=== PATIENT | female | born 1950 | race Caucasian/White ===

== ENCOUNTER 2016-08-17 09:29 | Inpatient (IN) | payer BC, OTHER ==
[~2016-08-17] VITALS: Ht 160 cm; Wt 99.0 kg
[~2016-08-17 09:29] MED LIST: ADVIN50/60 INH; ALBU0.08 INH; ALBUAER19 INH; CETI10TA10 PO; LANS30CA12 PO; LEVO75TA PO; MULT-190 PO; MULTTAB58 PO; OMEG10007 PO; PRED10TA PO; RANI300T2 PO; RIVA1TAB4 PO; SIMV20TA2 PO; TRIA1SPR2 NAE; TRIATAB3 PO; VALS40TA2 PO; VERA1TAB52 PO
[2016-08-17] MEDS ORDERED: IVIG IV (10:02)
[2016-08-17] MEDS ORDERED: VNTHFA/IN INH (10:11)
[2016-08-17] MEDS ORDERED: TRIA1SPR4 NAE (10:11)
[2016-08-17] MEDS ORDERED: ALBINS/ INH (10:11)
[2016-08-17] MEDS ORDERED: ALBUT/IPRATROP 3MG/0.5MG NEB 3 ML VIAL INH ONE (10:30)
--- NOTE | 2016-08-17 10:37 | EMERGENCY ROOM VISIT NOTE ---
History Report prepared by Binta: Christoph Lopes Under the Supervision of: Dr. Timo Prajapati M.D. First contact with patient: 09:59 Chief Complaint: FLU LIKE SX Stated Complaint: FLU LIKE SX History of Present Illness The patient is a 65 year old female who presents to the Emergency Room with complaints of worsening flu symptoms starting yesterday. The patient states that yesterday she was very tired, and she slept all day, though it did not seem to help. The patient additionally complains of a cough that brings up clear mucous, vomiting, abdominal pain, and a lot of gas. The patient states that she cannot even drink water without throwing up. The patient states that she has chronic asthma and sinusitis for the past five years. She states that she was here in October, and she was diagnosed with pneumonia, 2 PEs, and immunodeficiency. The patient denies any abdominal surgeries in the past. Source of History: patient Onset: yesterday Position: other (global) Quality: other (flu symptoms) Timing: worsening Associated Symptoms: + abdominal pain, + cough, + vomiting Review of Systems See HPI for pertinent positives & negatives. A total of 10 systems reviewed and were otherwise negative. Past Medical & Surgical Medical Problems: (1) Asthma (2) Breast Biopsy 2006 (3) Chronic asthmatic bronchitis (4) Gastroesophageal reflux disease (5) GERD (6) Hypercholesterolemia (7) Hypertension (8) Hypothyroidism (9) Hysterectomy 1989 (10) Knee Replacement Surgery (11) Pneumonia (12) Rhinitis (13) Right Rotator Cuff Repair 2004 (14) Seasonal Allergies (15) Vaginal Repair 1999 Family History Hypertension Lung disease Social History Smoking Status: Former Smoker Alcohol Use: occasionally Drug Use: none Marital Status: Housing Status: lives with family Occupation Status: retired Current/Historical Medications Scheduled Cetirizine Hcl (Zyrtec), 10 MG PO DAILY Fish Oil ([place]-3), 1 CAPSULE PO DAILY Fluticasone Prop/Salmeterol (Advair Diskus 500/50 60 Dose), 1 PUFF INH BID Lansoprazole (Prevacid), 30 MG PO DAILY Levothyroxine Sodium (Synthroid), 75 MCG PO DAILY Multiple Vitamin (Multivitamin), 1 TAB PO DAILY Ocuvite Preservision (Ocuvite Preservision), 1 TABLET PO DAILY Ranitidine (Zantac), 300 MG PO HS Simvastatin (Zocor), 20 MG PO QPM Triamcinolone Acetonide (Nasal (Nasacort Allergy 24Hr), 2 SPRAYS YARIEL DAILY Triamterene/Hctz (Triamterene/Hctz 37.5-25MG), 1 TAB PO DAILY Valsartan (Diovan), 40 MG PO DAILY Verapamil Hcl (Verapamil Hcl Er), 120 MG PO DAILY [Ivig], 1 DOSE IV Q4WK Scheduled PRN Albuterol Hfa (Ventolin Hfa), 2 PUFFS INH Q4H PRN for SOB/Wheezing Albuterol Sulf (Proventil 0.083% 2.5MG/3ML), 2.5 MG INH QID PRN for SOB/Wheezing Allergies Coded Allergies: Erythromycin (Unverified Allergy, Severe, HIVES, 08/17/16) Levofloxacin (Verified Allergy, Severe, Anaphylaxis, 08/17/16) Quinolones (Verified Allergy, Intermediate, RASH, 08/17/16) Aspirin (Verified Allergy, Unknown, TAKES VOLTAREN AT HOME, 08/17/16) Physical Exam Vital Signs Date Time Temp Pulse Resp B/P Pulse Ox O2 Delivery O2 Flow Rate FiO2 08/17/16 14:54 105 14 92 08/17/16 14:49 100 16 92 08/17/16 14:44 112 19 94 08/17/16 14:39 105 16 94 08/17/16 14:34 103 25 93 08/17/16 14:29 108 23 94 08/17/16 14:24 106 23 93 08/17/16 14:19 115 20 92 08/17/16 14:14 106 24 94 08/17/16 14:09 113 20 93 08/17/16 14:04 109 16 93 08/17/16 13:59 101 15 92 08/17/16 13:58 142/87 08/17/16 13:54 114 20 94 08/17/16 13:49 110 16 94 08/17/16 13:44 112 23 96 08/17/16 13:39 106 21 91 08/17/16 13:37 105 08/17/16 13:34 100 18 94 08/17/16 13:29 109 20 93 08/17/16 13:14 112 18 92 08/17/16 13:09 113 16 90 2/15/17 13:04 115 22 90 215/17 12:59 111 16 92 215/17 12:58 133/71 215/17 12:54 111 18 92 15/17 12:49 114 17 93 215/17 12:29 107 10 99 15/17 12:24 112 9 98 15/17 12:19 106 12 98 08/17/ 12:14 101 11 98 08/17/16 12:09 101 11 98 08/17/ 12:04 98 12 99 15/17 11:59 99 16 98 15/17 11:58 123/75 15/17 11:54 98 12 98 15/17 11:49 99 15 98 15/17 11:48 36.6 105 12 135/74 99 Nebulizer 08/17/16 11:46 135/74 15/17 11:45 145/79 15/17 11:44 100 19 99 08/17/17 11:44 97 12 140/79 99 Nebulizer 101 145/79 105 135/74 08/17/17 11:43 140/79 15/17 11:29 87 14 99 15/17 11:24 91 12 99 15/17 11:19 88 16 99 15/17 11:14 83 14 100 15/17 11:10 88 20 96 Room Air 08/17/ 11:09 92 16 99 15/17 11:04 87 18 15/17 10:59 95 15 15/17 10:54 94 21 215/17 10:49 93 16 2/15/17 10:44 92 17 2/15/17 10:39 85 16 2/15/17 10:34 86 17 2/15/17 10:29 86 23 2/15/17 10:24 93 22 2/15/17 10:14 92 19 94 215/17 10:09 86 15 95 215/17 10:04 87 17 94 215/17 09:59 88 13 96 215/17 09:54 91 14 94 15/17 09:49 87 13 94 15/17 09:44 85 16 95 15/17 09:43 36.6 86 18 151/78 96 Room Air 08/17/16 09:42 85 08/17/16 09:38 151/78 Physical Exam GENERAL: Patient is a healthy-appearing well-nourished HEAD: Normocephalic atraumatic EYES: Ocular movements intact pupils equal and react to light OROPHARYNX mucous membranes are moist no exudates present no erythema or edema present NECK: Supple no nuchal rigidity CHEST: Good equal expansion LUNGS: Clear and equal to auscultation CARDIAC: Normal S1 and S2 ABDOMEN: Soft nontender no guarding BACK: No CVA tenderness EXTREMITIES: No pain upon palpation normal muscle strength in all groups no clubbing cyanosis or edema NEURO: Patient is following commands is answering questions appropriately. Alert and oriented x3 Cranial Nerves 2-12 grossly intact Medical Decision & Procedures ER Provider Diagnostic Interpretation: X-ray results as stated below per interpretation by me and the radiologist: CHEST ONE VIEW PORTABLE CLINICAL HISTORY: Shortness of breath. COMPARISON STUDY: Chest radiograph and chest CT October 12, 2015. FINDINGS: Elevation of the right hemidiaphragm is unchanged. Cardiac size is normal. Mediastinal contours are normal. There is no evidence of pulmonary edema. Mild bibasilar opacities favor atelectasis. IMPRESSION: 1. Mild bibasilar opacities. Atelectasis is favored. An infectious process could appear similar but is considered less likely. 2. Stable elevation of the right hemidiaphragm. Electronically signed by: Trung Milligan M.D. 08/17/2016 10:55 AM Dictated Date/Time: 08/17/2016 10:53 AM Laboratory Results Test 08/17/16 10:30 08/17/16 10:34 08/17/16 11:00 08/17/16 11:49 Influenza Type A (RT-PCR) Neg for Influ A (NEG) Influenza Type A Antigen Neg for Influ A (NEG) Influenza Type B Antigen Neg for Influ B (NEG) Influenza Type B (RT-PCR) Neg for Influ B (NEG) Urine Color DK YELLOW Urine Appearance CLOUDY (CLEAR) Urine pH 6.5 (4.5-7.5) Urine Specific [place] 1.018 (1.000-1.030) Urine Protein 1+ (NEG) Urine Glucose (UA) NEG (NEG) Urine Ketones NEG (NEG) Urine Occult Blood NEG (NEG) Urine Nitrite NEG (NEG) Urine Bilirubin NEG (NEG) Urine Urobilinogen NEG (NEG) Urine Leukocyte Esterase TRACE (NEG) Urine WBC (Auto) 1-5 /hpf (0-5) Urine RBC (Auto) 0-4 /hpf (0-4) Urine Hyaline Casts (Auto) 1-5 /lpf (0-5) Urine Epithelial Cells (Auto) 20-30 /lpf (0-5) Urine Bacteria (Auto) NEG (NEG) Immature Granulocyte % (Auto) 0.3 % White Blood Count 17.84 K/uL (4.8-10.8) Red Blood Count 4.57 M/uL (4.2-5.4) Hemoglobin 12.6 g/dL (12.0-16.0) Hematocrit 38.0 % (37-47) Mean Corpuscular Volume 83.2 fL (80-100) Mean Corpuscular Hemoglobin 27.6 pg (25-34) Mean Corpuscular Hemoglobin Concent 33.2 g/dl (32-36) Platelet Count 275 K/uL (130-400) Mean Platelet Volume 10.1 fL (7.4-10.4) Neutrophils (%) (Auto) 83.2 % Lymphocytes (%) (Auto) 9.1 % Monocytes (%) (Auto) 6.4 % Eosinophils (%) (Auto) 0.9 % Basophils (%) (Auto) 0.1 % Neutrophils # (Auto) 14.82 K/uL (1.4-6.5) Lymphocytes # (Auto) 1.63 K/uL (1.2-3.4) Monocytes # (Auto) 1.15 K/uL (0.11-0.59) Eosinophils # (Auto) 0.16 K/uL (0-0.5) Basophils # (Auto) 0.02 K/uL (0-0.2) Immature Granulocyte # (Auto) 0.06 K/uL (0.00-0.02) Prothrombin Time 10.0 SECONDS (9.0-12.0) Prothromb Time International Ratio 0.9 (0.9-1.1) Activated Partial Thromboplast Time 21.7 SECONDS (21.0-31.0) Partial Thromboplastin Ratio 0.8 Total Bilirubin 0.4 mg/dl (0.2-1) Direct Bilirubin < 0.1 mg/dl (0-0.2) Aspartate Amino Transf (AST/SGOT) 13 U/L (15-37) Alanine Aminotransferase (ALT/SGPT) 24 U/L (12-78) Alkaline Phosphatase 89 U/L (45-117) Total Protein 7.3 gm/dl (6.4-8.2) Albumin 3.1 gm/dl (3.4-5.0) Thyroid Stimulating Hormone (TSH) 0.396 uIu/ml (0.300-4.500) Bedside Glucose 94 mg/dl (70-90) Labs reviewed by ED physician. Medications Administered Medications (Trade) Dose Ordered Sig/Ross Route Start Time Stop Time Status Last Admin Dose Admin Albuterol/ Ipratropium (Duoneb) 12 ml ONE ONCE INH 08/17/16 10:30 08/17/16 10:31 DC 08/17/16 11:10 12 ML Piperacillin Sod/ Tazobactam Sod 4.5 gm 4.5 gm NOW STAT IV 08/17/16 12:31 08/17/16 12:33 DC 08/17/16 13:14 4.5 GM Sodium Chloride (Nss 1000ml) 1,000 ml @ 999 mls/hr Q1H1M STAT IV 08/17/16 12:47 08/17/16 13:47 DC 08/17/16 13:14 999 MLS/HR Doxycycline Hyclate (Vibramycin Cap) 100 mg ONE STAT PO 08/17/16 12:47 08/17/16 12:48 DC 08/17/16 13:13 100 MG Methylprednisolone Sodium Succinate (Solu-Medrol IV) 60 mg NOW STAT IV 08/17/16 12:50 08/17/16 12:51 DC 08/17/16 13:14 60 MG Vancomycin HCl (Vancomycin 1gm/ 270ml Nss) 1 gm NOW STAT IV 08/17/16 13:58 08/17/16 13:59 DC 08/17/16 14:45 1 GM ECG Indication: other (Flu Like Symptoms) Rate (beats per minute): 88 Rhythm: normal sinus Findings: no acute ischemic change, no ectopy ED Course 1020: Past medical records reviewed. The patient was evaluated in room C5. A complete history and physical examination was performed. 1030: Duoneb 12ml INH 1231: Zosyn 4.5gm IV 1247: Vibramycin Cap 100mg PO, Sodium Chloride 1000 ml @ 999 mls/hr IV 1250: Solu-Medrol 60mg IV 1350: I reevaluated the patient, and she was resting. I discussed the findings and treatment plan with her. 1357: I discussed the patient's case with Dr. Calvin. He is going to evaluate the patient for further treatment. 1358: Vancomycin 1gm/ 270ml NSS 1mg IV Medical Decision Differential diagnosis: Etiologies such as infections, reactive airway disease, pneumonia, pneumothorax , COPD, CHF, cardiac ischemia, pulmonary embolism, musculoskeletal, gastrointestinal, as well as others were entertained. This is a 65-year-old female who presents emergency department complaining of shortness of breath. The patient has a history of IgG deficiency. Based on her allergies she was started on vancomycin as well as Zosyn. I did give her an hour-long breathing treatment in the emergency department. She does have an elevation in her white blood count. I did discuss the case with the hospitalist service who agreed to admit the patient. Patient was in agreement with the treatment plan area Consults Time Called: [phone] Consulting Physician: Dr. Calvin Returned Call: [phone] I discussed the patient's case with Dr. Calvin. He is going to evaluate the patient for further treatment. Impression Primary Impression: Pneumonia Scribe Attestation The scribe's documentation has been prepared under my direction and personally reviewed by me in its entirety. I confirm that the note above accurately reflects all work, treatment, procedures, and medical decision making performed by me. Departure Information Dispostion Being Evaluated By Hospitalist Referrals Joselito Harrington M.D. (PCP)
[2016-08-17 10:45] LABS: MANUAL MICROSCOPIC REQUIRED? NO; REVIEW REQ? NO; URINE APPEARANCE CLOUDY (CLEAR); URINE BILIRUBIN NEG (NEG); URINE COLOR DK YELLOW; URINE EPITHELIAL CELL AUTO 20-30 /lpf (0-5); URINE NITRITE NEG (NEG); URINE PH 6.5 (4.5-7.5); URINE SPECIFIC GRAVITY 1.018 (1.000-1.030); UROBILINOGEN NEG (NEG)
--- NOTE | 2016-08-17 10:56 | DIAGNOSTIC IMAGING REPORT ---
CHEST ONE VIEW PORTABLE CLINICAL HISTORY: Shortness of breath. COMPARISON STUDY: Chest radiograph and chest CT October 12, 2015. FINDINGS: Elevation of the right hemidiaphragm is unchanged. Cardiac size is normal. Mediastinal contours are normal. There is no evidence of pulmonary edema. Mild bibasilar opacities favor atelectasis. IMPRESSION: 1. Mild bibasilar opacities. Atelectasis is favored. An infectious process could appear similar but is considered less likely. 2. Stable elevation of the right hemidiaphragm. Electronically signed by: Trung Milligan M.D. 08/17/2016 10:55 AM Dictated Date/Time: 08/17/2016 10:53 AM
[2016-08-17 11:10] VITALS: PULSE 88; O2SAT 96
[2016-08-17 11:16] LABS: BASO % 0.1 %; BASO ABS # 0.02 K/uL (0-0.2); COMPLETE YES; EOS % 0.9 %; IG% 0.3 %; LYMPH % 9.1 %; LYMPH ABS # 1.63 K/uL (1.2-3.4); MEAN CELL VOLUME 83.2 fL (80-100); MEAN CORPUSCULAR HEMOGLOBIN 27.6 pg (25-34); MEAN CORPUSCULAR HGB CONC 33.2 g/dl (32-36); MEAN PLATELET VOLUME 10.1 fL (7.4-10.4); MONO % 6.4 %; NEUT % 83.2 %; PLATELET COUNT 275 K/uL (130-400); RED BLOOD COUNT 4.57 M/uL (4.2-5.4); WHITE BLOOD COUNT 17.84 K/uL (4.8-10.8)
[2016-08-17 11:35] LABS: ALT/SGPT 24 U/L (12-78); AST/SGOT 13 U/L (15-37); BLOOD UREA NITROGEN 14 mg/dl (7-18); BUN/CREATININE RATIO 12.6 (10-20); CALCIUM 10.1 mg/dl (8.5-10.1); CARBON DIOXIDE 26 mmol/L (21-32); CHLORIDE 105 mmol/L (98-107); GLUCOSE 107 mg/dl (70-99); POTASSIUM 3.2 mmol/L (3.5-5.1); SODIUM 141 mmol/L (136-145)
[2016-08-17 11:45] LABS: ALKALINE PHOSPHATASE 89 U/L (45-117); THYROID STIMULATING HORMONE 0.396 uIu/ml (0.300-4.500)
[2016-08-17] MEDS ORDERED: PIPERACILLIN/TAZOBACTAM 4.5 GM/100ML D5W IV STA (12:31)
[2016-08-17 12:41] LABS: INFLUENZA A PCR Neg for Influ A (NEG); INFLUENZA B PCR Neg for Influ B (NEG)
[2016-08-17] MEDS ORDERED: SODIUM CHLORIDE 0.9% 1000ML 1,000 ML IV STA (12:47)
[2016-08-17] MEDS ORDERED: DOXYCYCLINE HYCLATE 100 MG CAP PO STA (12:47)
[2016-08-17] MEDS ORDERED: METHYLPREDNISOLONE 125 MG VIAL IV STA (12:50)
[2016-08-17] MEDS ORDERED: VANCOMYCIN 1GM/270ML NSS IV STA (13:58)
[2016-08-17] MEDS ORDERED: MAGNESIUM HYDROXIDE SUSP 30 ML UDC PO PRN (15:00)
[2016-08-17] MEDS ORDERED: POLYETHYLENE (MIRALAX) 17 GM PACK PO PRN (15:00)
[2016-08-17] MEDS ORDERED: ACETAMINOPHEN 325 MG TAB PO PRN (15:00)
[2016-08-17] MEDS ORDERED: ONDANSETRON INJ 2 MG/ML 2 ML VIAL IV PRN (15:00)
[2016-08-17] MEDS ORDERED: OPTIRAY 320 IV PRN (15:15)
[2016-08-17] MEDS ORDERED: BENZONATATE 100MG CAP PO PRN (15:15)
--- NOTE | 2016-08-17 15:23 | History and Physical ---
History & Physical Date & Time of Service: Aug 17, 2016 at 15:15 Chief Complaint: Flu Like Sx Primary Care Physician: Joselito Harrington M.D. History of Present Illness Source: patient Ms. Cruz is a 65 y/o female with PMHx of Asthma, Pulmonary Embolism originating for Lower Extremity DVTs (October 2015), IgG and IgM Immunodeficiency , HTN, Hypothyroidism, and GERD who presents to the ED c/o worsening flu-like symptoms. She does have a chronic cough that has been present due to her asthma that is normally productive of clear to white/foamy sputum that has recently changed over to a dark brown sputum. States the cough is more severe over the past day and worse in the AM. She does have chronic sinusitis with post-nasal drip. As this cough increased she does report increased nausea and vomiting. She is complaining of epigastric abdominal pain that she describes as more of an "upset stomach". She notes that she has noticed increased gas, burping, and abdominal distention. Her last BM was yesterday and was normal for her. She was admitted in October 2015 and was flu positive, treated for CAP, and was found to have PEs. She was on Xarelto at the time but currently is not. She has been followed by her PCP that did a LE U/S that did not show DVTs. She reports they wanted her off Xarelto prior to starting IVIG for her immunodeficiency that was discovered on previous admission. She received her first dose of IVIG on August 03, 2016. She reveals a significant FMHx of active tuberculosis in both her mother and father. She has positive PPD testing and states she has had CXRs that have showed scarring. Given her immunosuppression and TB exposure she will be admitted to a negative pressure room for further evaluation and care. Past Medical/Surgical History Medical Problems: (1) Asthma Status: Chronic (2) Breast Biopsy 2006 Status: Resolved (3) Chronic asthmatic bronchitis Status: Chronic (4) Gastroesophageal reflux disease Status: Chronic (5) GERD Status: Chronic (6) Hypercholesterolemia Status: Chronic (7) Hypertension Status: Chronic (8) Hypothyroidism Status: Chronic (9) Hysterectomy 1989 Status: Resolved (10) Knee Replacement Surgery Status: Resolved (11) Pneumonia Status: Chronic (12) Rhinitis Status: Chronic (13) Right Rotator Cuff Repair 2004 Status: Resolved (14) Seasonal Allergies Status: Chronic (15) Vaginal Repair 2000 Status: Resolved Family History Hypertension Lung disease Social History Smoking Status: Former Smoker Drug Use: none Marital Status: Occupational Status: retired Immunizations History of Influenza Vaccine: Unknown History of Tetanus Vaccine?: Yes History of Pneumococcal: Unknown History of Hepatitis B Vaccine: Unknown Multi-Drug Resistant Organisms History of MDRO: No Allergies Coded Allergies: Erythromycin (Unverified Allergy, Severe, HIVES, 08/17/16) Levofloxacin (Verified Allergy, Severe, Anaphylaxis, 08/17/16) Quinolones (Verified Allergy, Intermediate, RASH, 08/17/16) Aspirin (Verified Allergy, Unknown, TAKES VOLTAREN AT HOME, 08/17/16) Home Medications Scheduled Cetirizine Hcl (Zyrtec), 10 MG PO DAILY Fish Oil ([place]-3), 1 CAPSULE PO DAILY Fluticasone Prop/Salmeterol (Advair Diskus 500/50 60 Dose), 1 PUFF INH BID Lansoprazole (Prevacid), 30 MG PO DAILY Levothyroxine Sodium (Synthroid), 75 MCG PO DAILY Multiple Vitamin (Multivitamin), 1 TAB PO DAILY Ocuvite Preservision (Ocuvite Preservision), 1 TABLET PO DAILY Ranitidine (Zantac), 300 MG PO HS Simvastatin (Zocor), 20 MG PO QPM Triamcinolone Acetonide (Nasal (Nasacort Allergy 24Hr), 2 SPRAYS YARIEL DAILY Triamterene/Hctz (Triamterene/Hctz 37.5-25MG), 1 TAB PO DAILY Valsartan (Diovan), 40 MG PO DAILY Verapamil Hcl (Verapamil Hcl Er), 120 MG PO DAILY [Ivig], 1 DOSE IV Q4WK Scheduled PRN Albuterol Hfa (Ventolin Hfa), 2 PUFFS INH Q4H PRN for SOB/Wheezing Albuterol Sulf (Proventil 0.083% 2.5MG/3ML), 2.5 MG INH QID PRN for SOB/Wheezing Review of Systems Constitutional: + fatigue, No chills, No fever Eyes: No worsening of vision ENT: + nasal symptoms, + problem reported (postnasal drip from chronic sinusitis), + sore throat, No trouble swallowing Respiratory: + cough, + shortness of breath, + sputum (brown sputum) Cardiovascular: No chest pain Abdomen: + nausea, + pain ("upset stomach" epigastric), + vomiting, No constipation, No diarrhea Musculoskeletal: No calf pain, No swelling Genitourinary - Female: No dysuria Endocrine: + fatigue Hematologic / Lymphatic: + problem reported (IVIG on August 03, 2016), No abnormal bleeding/bruising Integumentary: No itch, No rash Allergic / Immunologic: + problem reported (Immunodeficient with low IgG and IgM) Physical Exam Vital Signs Date Time Temp Pulse Resp B/P Pulse Ox O2 Delivery O2 Flow Rate FiO2 08/17/16 14:44 112 19 94 08/17/16 14:39 105 16 94 08/17/16 14:34 103 25 93 08/17/16 14:29 108 23 94 08/17/16 14:24 106 23 93 08/17/16 14:19 115 20 92 08/17/16 14:14 106 24 94 08/17/16 14:09 113 20 93 08/17/16 14:04 109 16 93 08/17/16 13:59 101 15 92 08/17/16 13:58 142/87 08/17/16 13:54 114 20 94 08/17/16 13:49 110 16 94 08/17/16 13:44 112 23 96 08/17/16 13:39 106 21 91 08/17/16 13:37 105 08/17/16 13:34 100 18 94 08/17/16 13:29 109 20 93 08/17/16 13:14 112 18 92 08/17/16 13:09 113 16 90 08/17/16 13:04 115 22 90 08/17/16 12:59 111 16 92 08/17/16 12:58 133/71 08/17/16 12:54 111 18 92 08/17/16 12:49 114 17 93 08/17/16 12:29 107 10 99 08/17/16 12:24 112 9 98 08/17/16 12:19 106 12 98 08/17/16 12:14 101 11 98 08/17/16 12:09 101 11 98 08/17/16 12:04 98 12 99 08/17/16 11:59 99 16 98 08/17/16 11:58 123/75 08/17/16 11:54 98 12 98 08/17/16 11:49 99 15 98 08/17/16 11:48 36.6 105 12 135/74 99 Nebulizer 08/17/16 11:46 135/74 08/17/16 11:45 145/79 08/17/16 11:44 100 19 99 08/17/16 11:44 97 12 140/79 99 Nebulizer 101 145/79 105 135/74 08/17/16 11:43 140/79 08/17/16 11:29 87 14 99 08/17/16 11:24 91 12 99 08/17/16 11:19 88 16 99 08/17/16 11:14 83 14 100 08/17/16 11:10 88 20 96 Room Air 08/17/16 11:09 92 16 99 08/17/16 11:04 87 18 08/17/16 10:59 95 15 08/17/16 10:54 94 21 08/17/16 10:49 93 16 08/17/16 10:44 92 17 08/17/16 10:39 85 16 08/17/16 10:34 86 17 08/17/16 10:29 86 23 08/17/16 10:24 93 22 08/17/16 10:14 92 19 94 08/17/16 10:09 86 15 95 08/17/16 10:04 87 17 94 08/17/16 09:59 88 13 96 08/17/16 09:54 91 14 94 08/17/16 09:49 87 13 94 08/17/16 09:44 85 16 95 08/17/16 09:43 36.6 86 18 151/78 96 Room Air 08/17/16 09:42 85 08/17/16 09:38 151/78 General Appearance: WD/WN, no apparent distress, + obese Head: normocephalic, atraumatic Eyes: sclerae normal ENT: hearing grossly normal Neck: supple, no adenopathy, no JVD, trachea midline Respiratory/Chest: lungs clear, normal breath sounds, no respiratory distress, no accessory muscle use Cardiovascular: regular rate, rhythm, no gallop, no murmur Abdomen/GI: normal bowel sounds, soft, + distended, + pertinent finding ( tympanic to percussion) Back: normal inspection, no CVA tenderness Extremities/Musculoskelatal: no calf tenderness, no pedal edema Neurologic/Psych: alert, oriented x 3 Skin: normal color, warm/dry Diagnostics Laboratory Results Results Past 24 Hours Test 08/17/16 10:30 08/17/16 10:34 08/17/16 11:00 08/17/16 11:49 Range/Units Influenza Type A (RT-PCR) Neg for Influ A NEG Influenza Type A Antigen Neg for Influ A NEG Influenza Type B Antigen Neg for Influ B NEG Influenza Type B (RT-PCR) Neg for Influ B NEG Urine Color DK YELLOW Urine Appearance CLOUDY CLEAR Urine pH 6.5 4.5-7.5 Urine Specific [place] 1.018 1.000-1.030 Urine Protein 1+ NEG Urine Glucose (UA) NEG NEG Urine Ketones NEG NEG Urine Occult Blood NEG NEG Urine Nitrite NEG NEG Urine Bilirubin NEG NEG Urine Urobilinogen NEG NEG Urine Leukocyte Esterase TRACE NEG Urine WBC (Auto) 1-5 0-5 /hpf Urine RBC (Auto) 0-4 0-4 /hpf Urine Hyaline Casts (Auto) 1-5 0-5 /lpf Urine Epithelial Cells (Auto) 20-30 0-5 /lpf Urine Bacteria (Auto) NEG NEG White Blood Count 17.84 4.8-10.8 K/uL Red Blood Count 4.57 4.2-5.4 M/uL Hemoglobin 12.6 12.0-16.0 g/dL Hematocrit 38.0 37-47 % Mean Corpuscular Volume 83.2 80-100 fL Mean Corpuscular Hemoglobin 27.6 25-34 pg Mean Corpuscular Hemoglobin Concent 33.2 32-36 g/dl Platelet Count 275 130-400 K/uL Mean Platelet Volume 10.1 7.4-10.4 fL Neutrophils (%) (Auto) 83.2 % Lymphocytes (%) (Auto) 9.1 % Monocytes (%) (Auto) 6.4 % Eosinophils (%) (Auto) 0.9 % Basophils (%) (Auto) 0.1 % Neutrophils # (Auto) 14.82 1.4-6.5 K/uL Lymphocytes # (Auto) 1.63 1.2-3.4 K/uL Monocytes # (Auto) 1.15 0.11-0.59 K/uL Eosinophils # (Auto) 0.16 0-0.5 K/uL Basophils # (Auto) 0.02 0-0.2 K/uL RDW Standard Deviation 54.7 36.4-46.3 fL RDW Coefficient of Variation 17.9 11.5-14.5 % Immature Granulocyte % (Auto) 0.3 % Immature Granulocyte # (Auto) 0.06 0.00-0.02 K/uL Sodium Level 141 136-145 mmol/L Potassium Level 3.2 3.5-5.1 mmol/L Chloride Level 105 98-107 mmol/L Carbon Dioxide Level 26 21-32 mmol/L Anion Gap 10.0 3-11 mmol/L Blood Urea Nitrogen 14 7-18 mg/dl Creatinine 1.10 0.60-1.20 mg/dl Est Creatinine Clear Calc Drug Dose 55.6 ml/min Estimated GFR () 60.2 Estimated GFR (Non- 51.9 BUN/Creatinine Ratio 12.6 10-20 Random Glucose 107 70-99 mg/dl Calcium Level 10.1 8.5-10.1 mg/dl Total Bilirubin 0.4 0.2-1 mg/dl Direct Bilirubin < 0.1 0-0.2 mg/dl Aspartate Amino Transf (AST/SGOT) 13 15-37 U/L Alanine Aminotransferase (ALT/SGPT) 24 12-78 U/L Alkaline Phosphatase 89 45-117 U/L Total Protein 7.3 6.4-8.2 gm/dl Albumin 3.1 3.4-5.0 gm/dl Thyroid Stimulating Hormone (TSH) 0.396 0.300-4.500 uIu/ml Bedside Glucose 94 70-90 mg/dl Diagnostic Radiology CHEST ONE VIEW PORTABLE CLINICAL HISTORY: Shortness of breath. COMPARISON STUDY: Chest radiograph and chest CT October 12, 2015. FINDINGS: Elevation of the right hemidiaphragm is unchanged. Cardiac size is normal. Mediastinal contours are normal. There is no evidence of pulmonary edema. Mild bibasilar opacities favor atelectasis. IMPRESSION: 1. Mild bibasilar opacities. Atelectasis is favored. An infectious process could appear similar but is considered less likely. 2. Stable elevation of the right hemidiaphragm. EKG Normal sinus rhythm Normal ECG When compared with ECG of 14-OCT-2015 07:10, T wave amplitude has decreased in Anterior leads QT has lengthened Impression Assessment and Plan Ms. Cruz is a 65 y/o female with PMHx of Asthma, Pulmonary Embolism originating for Lower Extremity DVTs (October 2015), IgG and IgM Immunodeficiency , HTN, Hypothyroidism, and GERD who presents to the ED c/o worsening flu-like symptoms. She does have a leukocytosis of 17.84 and CXR shows mild bibasilar opacities that may be more atelectasis vs infectious. Given her immunodeficiency and TB exposure will admit for PNA treatment, asthma exacerbation, and with TB precautions. Community Acquired Pneumonia in Setting of Immunodeficiency: - Admit to negative pressure room given history - Zosyn and Vanc per pharmacy dosing - will await CT for consideration of adding coverage for atypicals - Duonebs QID and Q2H PRN - Advair and Nasal spray - CTA - R/O new PE and resolution of prior PE and further evaluation for consolidation/TB findings - Mucinex 1200 mg Q12H and Tessalon perles - Flutter valve Mild Asthma Exacerbation: - Methylprednisolone 40 mg IV BID - Zyrtec 10 mg daily TB Exposure: - Both parents with active TB in the past; positive PPDs; CXR findings of scarring per patient report -- She has a chronic cough related to asthma and fatigue - denies unexplained weight loss or night sweats - Given new immunodeficiency risk for TB - AFB sputum Cx and smear - may need further testing such as Quantiferon Gold testing - will await CT image Hypothyroidism: - Synthroid 75 mcg daily Essential HTN: - Maxzide 1 tab daily and Valsartan 40 mg daily HLD: - Simvastatin 20 mg daily GERD: - Protonix 40 mg daily as interchange for home meds Migraines: - Verapamil 120 mg daily DVT Prophylaxis: - Lovenox 40 mg SC daily Disposition: - Lives at home without home needs anticipated Level of Care Med/Surg Resuscitation Status FULL RESUSCITATION VTE Prophylaxis VTE Risk Assessment Done? Y/N: Yes Risk Level: Moderate Social Service Consult None Apply Assessment and Plan Attending Addendum: I have physically seen and examined this patient, have directed their medical care, have supervised the PA's activity, and agree with the H&P as noted above, with the following changes: NONE. Ex The patient is awake, well-developed and adequately nourished, alert and oriented 3, normocephalic and atraumatic, lying in bed and in no acute distress. HEENT--PERRL, EOMI, mucous membranes and oropharynx dry. Neck--supple, no JVD or bruits, thyroid normal, trachea midline, no adenopathy. Heart--normal S1 and S2, no extra beats, no murmurs, rubs or gallops. Lungs--crackles at the bases bilaterally, no respiratory distress, no accessory muscle use. Abdomen--normal bowel sounds and soft, nontender and nondistended, no hernias or masses, no organomegaly. Extremities--no cyanosis, clubbing or edema. There are good distal pulses b/l. Dermatologic--normal skin turgor, normal color, warm and dry, no abnormal lymph nodes, no rash. Neurologic--cranial nerves II through XII grossly intact, motor and sensory examination normal. Rheumatologic--normal range of motion, nontender, muscles and joints. Psychiatric--normal affect. Assessment and Plan: Pneumonia of both lower lobes--the patient will be admitted. She'll be placed on Zosyn IV, vancomycin IV per renal dosing, guaifenesin extended release 600 mg by mouth twice a day, Solu-Medrol IV, and high flow nebulizers. We'll order a CTA of the chest to further assess infectious process, assess for possible pulmonary emboli, and we will admit to negative pressure room due to history of positive PPD and both parents with active TB when she was a child. We'll consult infectious disease for their input. IgG deficiency--pursue more aggressive workup of pulmonary status as noted above. History of pulmonary emboli, and treatment with Xarelto 6 months. Xarelto was discontinued due to concurrent treatment with IVIG. We will assess for recurrence of PEs , or incomplete resolution as noted above.
[2016-08-17] MEDS: ALBUT/IPRATROP 3MG/0.5MG NEB 3 ML VIAL INH SCH ×3 (16:00→21:52)
--- NOTE | 2016-08-17 16:28 | Pharmacy Progress Note ---
Pharmacy Antibiotic Consult Date of Service: Aug 17, 2016. Pharmacy Dosing Scope Pharmacy is consulted to initiate Vancomycin IV dosing therapy, order appropriate labs and adjust drug dose/frequency for CAP. Subjective The patient is a 65 year old female admitted in the ER 08/17/16 Objective Height (Feet): 5 Height (Inches): 3.00 Weight (Kilograms): 99.000 Lab Results (24hrs): Laboratory Tests Test 08/17/16 11:00 08/17/16 16:18 BUN/Creatinine Ratio 12.6 Blood Urea Nitrogen 14 mg/dl Creatinine 1.10 mg/dl White Blood Count 17.84 K/uL Red Blood Count 4.57 M/uL Hemoglobin 12.6 g/dL Hematocrit 38.0 % Mean Corpuscular Volume 83.2 fL Mean Corpuscular Hemoglobin 27.6 pg Mean Corpuscular Hemoglobin Concent 33.2 g/dl Platelet Count 275 K/uL Mean Platelet Volume 10.1 fL Neutrophils (%) (Auto) 83.2 % Lymphocytes (%) (Auto) 9.1 % Monocytes (%) (Auto) 6.4 % Eosinophils (%) (Auto) 0.9 % Basophils (%) (Auto) 0.1 % Neutrophils # (Auto) 14.82 K/uL Lymphocytes # (Auto) 1.63 K/uL Monocytes # (Auto) 1.15 K/uL Eosinophils # (Auto) 0.16 K/uL Basophils # (Auto) 0.02 K/uL Recent Pertinent Medications Also on Zosyn 4.5 gm IV q8h extended infusion for BMI > 35 kg/m2 Assessment & Plan * Loading dose: Vancomycin 1 gm IV x 1 was started in the ED at 1445 today. To complete the load of 2500 mg IV Vancomycin (~ 25 mg/kg), an additional 1500 mg IV is ordered for 1800 today. * A maintenance dose of vancomycin 1500 mg IV q18h is ordered to be started on at 0600 am. * Dosing based on estimated pharmacokinetics: Ke = 0.051 /hr, t1/2 = 13.6 hrs, Vd = 0.7 L/kg * Goal trough level estimate: between 15 - 20 mcg/mL. * Trough Vancomycin level has been ordered for 08/19/16 before dose at 1800 ( before the 3rd maintenance dose). Pharmacy will continue to follow and will adjust dose/frequency as necessary. Thank you
[2016-08-17] MEDS ORDERED: VANCOMYCIN CONSULT ACTIVE PRN (16:30)
[2016-08-17] MEDS ORDERED: PIPERACILL/TAZOBAC CONSULT ACTIVE PRN (16:30)
[2016-08-17 17:08] VITALS: BP 136/87; TEMP 36.8; O2SAT 93
[2016-08-17] MEDS ORDERED: POTASSIUM CHLORIDE 10 MEQ TABCR PO ONE (17:15)
[2016-08-17] MEDS: SODIUM CHLORIDE 0.9% 1000ML 1,000 ML IV SCH (17:26)
[2016-08-17 17:40] LABS: INR 0.9 (0.9-1.1); PARTIAL THROMBOPLASTIN RATIO 0.8
[2016-08-17 17:44] LABS: BUN/CREATININE RATIO 12.1 (10-20); CALCIUM 10.2 mg/dl (8.5-10.1); CREATININE 1.1 mg/dl (0.60-1.20); MAGNESIUM 2.1 mg/dl (1.8-2.4); POTASSIUM 3.5 mmol/L (3.5-5.1)
[2016-08-17] MEDS ORDERED: VANCOMYCIN INJ 1,500 MG in SODIUM CHLORIDE 0.9% 500ML 500 ML IV SCH (18:00)
[2016-08-17] MEDS: PIPERACILL/TAZOBAC IV 4.5 GM in DEXTROSE 5% 100ML 100 ML IV SCH (20:52)
[2016-08-17] MEDS: GUAIFENESIN 600 MG TABCR PO SCH (20:53)
[2016-08-17] MEDS: SIMVASTATIN 20 MG TAB PO SCH (20:53)
[2016-08-17] MEDS: FLUTICASONE/SALMETEROL (ADVAIR) 500/50 INH 14 PUFF INH SCH (20:54)
--- NOTE | 2016-08-17 21:14 | DIAGNOSTIC IMAGING REPORT ---
CHEST CTA for PULMONARY ARTERIES CT DOSE: 615.56 mGy.cm HISTORY: Chest pain dyspnea TECHNIQUE: Multiaxial CT images of the chest were performed following the intravenous administration of contrast to evaluate the pulmonary arteries. Maximal intensity projection images were also obtained. COMPARISON STUDY: None. FINDINGS: There is a normal caliber thoracic aorta with no evidence for dissection. There is no evidence for pulmonary embolus. No pleural effusions. No pneumothorax. The liver and spleen are unremarkable. No mediastinal or hilar lymphadenopathy. The central airways are patent. The lungs are clear. IMPRESSION: No evidence for pulmonary embolus. Electronically signed by: Nicolas Sinclair M.D. 08/17/2016 9:12 PM Dictated Date/Time: 08/17/2016 9:10 PM
[2016-08-17 21:54] VITALS: PULSE 119; O2SAT 96
[2016-08-17 21:55] VITALS: BP 138/85; PULSE 108; TEMP 36.8; O2SAT 96; Ht 160 cm; Wt 99.0 kg
[2016-08-17 23:12] VITALS: BP 126/81; PULSE 109; TEMP 36.6; O2SAT 90
[2016-08-17] MEDS ORDERED: CALCIUM CARBONATE 500 MG CHEWABLE PO PRN (23:30)
[2016-08-18] VITALS (7 sets, daily range): BP systolic 122–126; BP diastolic 71–78; PULSE 89–104; TEMP 36.5–36.7; O2SAT 92–98
[2016-08-18] MEDS: SODIUM CHLORIDE 0.9% 1000ML 1,000 ML IV SCH ×2 (01:17→11:00)
[2016-08-18] MEDS: METHYLPREDNISOLONE IV 40 MG in SYRINGE 0 ML IV SCH ×2 (01:18→14:05)
[2016-08-18] MEDS: PIPERACILL/TAZOBAC IV 4.5 GM in DEXTROSE 5% 100ML 100 ML IV SCH (03:50)
[2016-08-18] MEDS ORDERED: VANCOMYCIN INJ 1,500 MG in SODIUM CHLORIDE 0.9% 500ML 500 ML IV SCH (06:00)
[2016-08-18 06:14] LABS: HEMATOCRIT 34.6 % (37-47); MEAN CELL VOLUME 83.2 fL (80-100); MEAN CORPUSCULAR HEMOGLOBIN 27.6 pg (25-34); MEAN CORPUSCULAR HGB CONC 33.2 g/dl (32-36); MEAN PLATELET VOLUME 10.3 fL (7.4-10.4); PLATELET COUNT 265 K/uL (130-400); RED BLOOD COUNT 4.16 M/uL (4.2-5.4); WHITE BLOOD COUNT 12.13 K/uL (4.8-10.8)
[2016-08-18] MEDS: LEVOTHYROXINE 75 MCG TAB PO SCH (06:53)
[2016-08-18] MEDS: ALBUT/IPRATROP 3MG/0.5MG NEB 3 ML VIAL INH SCH ×4 (07:20→18:58)
[2016-08-18] MEDS ORDERED: PANTOprazole SOD 40 MG TAB PO SCH (08:00)
[2016-08-18] MEDS ORDERED: VERAPAMIL HCL 120 MG TABCR PO SCH ×2 (08:00→21:00)
[2016-08-18] MEDS ORDERED: VALSARTAN 80 MG TAB PO SCH ×2 (08:00→21:00)
[2016-08-18] MEDS: FLUTICASONE/SALMETEROL (ADVAIR) 500/50 INH 14 PUFF INH SCH ×2 (09:09→20:09)
[2016-08-18] MEDS: TRIAMTERENE/HCTZ 37.5/25MG TAB PO SCH (09:10)
[2016-08-18] MEDS: CETIRIZINE HCL 10 MG TAB PO SCH (09:11)
[2016-08-18] MEDS: TRIAMCINOLONE ACET NASAL SPRAY 10.8ML BTL NAE SCH (09:12)
[2016-08-18] MEDS: ENOXAPARIN 40 MG/0.4 ML SYR SQ SCH (09:12)
[2016-08-18] MEDS: GUAIFENESIN 600 MG TABCR PO SCH ×2 (09:14→20:08)
[2016-08-18] MEDS ORDERED: NURSING DECISION MEDICATION ORDER SCH (10:30)
--- NOTE | 2016-08-18 10:35 | Clinical Documentation Query ---
GIL Marquis : CLINICAL DOCUMENTATION QUERY Patient is a 65 year old female admitted for CAP in the setting of IgG and IgM immunodeficiency. Treatment includes IV Zosyn and Vancomycin. Please clarify as suggested below as clinically appropriate, as this directly affects DRG assignment. Thank you. In your clinical opinion is this patient being managed for: ( ) (Possible) Gram-negative and/or MRSA pneumonia (x ) Other explanation of clinical findings (Please Explain) - no evidence of pneumonia. Broad-spectrum IV abx were stopped. Symptoms largely due to asthma with exacerbation. ( ) Unable to determine (Please Define) ( ) Need to Discuss ( ) Not Agree The medical record reflects the following clinical findings, treatment, and risk factors. Clinical Indicators: As above Treatment: IV Zosyn and Vancomycin Risk Factors: IgG and IgM immunodeficiency Please clarify and document your clinical opinion in the progress notes and discharge summary. Terms such as "probable", "suspected", "likely", "questionable", "possible", or "still to be ruled out" are acceptable. IF IN AGREEMENT, YOU MUST DOCUMENT ABOVE DIAGNOSTIC STATEMENT IN DAILY PROGRESS NOTES AND DISCHARGE SUMMARY. This document is not part of the patient's record. Thank You, Jose M Parker, RN [phone]
--- NOTE | 2016-08-18 10:36 | Clinical Documentation Query ---
GIL Pollack : CLINICAL DOCUMENTATION QUERY Patient is a 65 year old female admitted for CAP in the setting of IgG and IgM immunodeficiency. Treatment includes IV Zosyn and Vancomycin. Please clarify as suggested below as clinically appropriate, as this directly affects DRG assignment. Thank you. In your clinical opinion is this patient being managed for: ( ) (Possible) Gram-negative and/or MRSA pneumonia ( ) Other explanation of clinical findings (Please Explain) ( ) Unable to determine (Please Define) ( ) Need to Discuss (X) Not Agree - I stopped these medications as I did not think they were necessary The medical record reflects the following clinical findings, treatment, and risk factors. Clinical Indicators: As above Treatment: IV Zosyn and Vancomycin Risk Factors: IgG and IgM immunodeficiency Please clarify and document your clinical opinion in the progress notes and discharge summary. Terms such as "probable", "suspected", "likely", "questionable", "possible", or "still to be ruled out" are acceptable. IF IN AGREEMENT, YOU MUST DOCUMENT ABOVE DIAGNOSTIC STATEMENT IN DAILY PROGRESS NOTES AND DISCHARGE SUMMARY. This document is not part of the patient's record. Thank You, Jose M Parker, RN [phone]
[2016-08-18] MEDS ORDERED: AMPICILLIN/SULBACTAM SOD INJ 3,000 MG in SODIUM CHLORIDE 0.9% 100ML 100 ML IV SCH (11:00)
[2016-08-18] MEDS ORDERED: NURSING VERBAL MED ORDER ONE (12:30)
[2016-08-18 16:50] LABS: BUN/CREATININE RATIO 12.7 (10-20); CALCIUM 9.9 mg/dl (8.5-10.1); CREATININE 1.2 mg/dl (0.60-1.20); MAGNESIUM 1.9 mg/dl (1.8-2.4)
[2016-08-18] MEDS: AMPICILLIN/SULBACTAM SOD INJ 3,000 MG in SODIUM CHLORIDE 0.9% 100ML 100 ML IV SCH (17:30)
--- NOTE | 2016-08-18 18:25 | Family Medicine Progress Note ---
Progress Note Date of Service Aug 18, 2016. Subjective Pt evaluation today including: conversation w/ patient, physical exam, chart review, lab review, review of studies, conversation w/ bank consultant (Dr Harrington), review of inpatient medication list Voiding: no voiding problems Mrs Cruz feels much better this morning although was unable to get much sleep last night. She denies any fevers or chills. Feels her breathing is much improved. All Other Systems: Reviewed and Negative Medications Current Inpatient Medications Medications (Trade) Dose Ordered Sig/Ross Route Start Time Stop Time Status Last Admin Dose Admin Acetaminophen (Tylenol Tab) 650 mg Q4H PRN PO 08/17/16 15:00 09/16/16 14:59 Al Hydrox/Mg Hydrox/Simethicone (Maalox Max Susp) 15 ml Q4H PRN PO 08/17/16 15:00 09/16/16 14:59 Magnesium Hydroxide (Milk Of Magnesia Susp) 30 ml Q6H PRN PO 08/17/16 15:00 09/16/16 14:59 Polyethylene (Miralax Powder Packet) 17 gm DAILY PRN PO 08/17/16 15:00 09/16/16 14:59 Ondansetron HCl (Zofran Inj) 4 mg Q6H PRN IV 08/17/16 15:00 09/16/16 14:59 08/17/16 21:03 4 MG Cetirizine HCl (zyrTEC TAB) 10 mg DAILY PO 08/18/16 08:00 09/17/16 08:59 08/18/16 09:11 10 MG Salmeterol Xinafoate/ Fluticasone (Advair Diskus 500/50 Inh) 1 puff BID INH 08/17/16 20:00 09/16/16 20:59 08/18/16 09:09 1 PUFF Levothyroxine Sodium (Synthroid Tab) 75 mcg DAILYBB PO 08/18/16 06:30 09/17/16 06:59 08/18/16 06:53 75 MCG Simvastatin (Zocor Tab) 20 mg QPM PO 08/17/16 21:00 09/16/16 20:59 08/17/16 20:53 20 MG Triamcinolone Acetonide (Nasacort Allergy 24hr) 2 sprays DAILY YARIEL 08/18/16 08:00 09/17/16 08:59 08/18/16 09:12 2 SPRAYS Triamterene/HCTZ 1 tab 1 tab DAILY PO 08/18/16 08:00 09/17/16 08:59 08/18/16 09:10 1 TAB Methylprednisolone Sodium Succinate/ Syringe (Solu-Medrol IV/ Syringe) 0.64 ml @ 1.5 mls/min BID@0200,1400 IV 08/18/16 02:00 09/17/16 01:59 08/18/16 14:05 1.5 MLS/MIN Albuterol/ Ipratropium (Duoneb) 3 ml QIDR INH 08/17/16 16:00 09/16/16 15:59 08/18/16 15:18 3 ML Guaifenesin (Mucinex Contr Rel Tab) 1,200 mg Q12 PO 08/17/16 21:00 09/16/16 20:59 08/18/16 09:14 600 MG Benzonatate (Tessalon Perles Cap) 100 mg TID PRN PO 08/17/16 15:15 09/16/16 15:14 Ioversol (Optiray 320) 100 ml UD PRN IV 08/17/16 15:15 08/21/16 15:14 Enoxaparin Sodium (Lovenox Inj) 40 mg QAM SQ 08/18/16 08:00 09/17/16 08:59 08/18/16 09:12 40 MG Pantoprazole Sodium (Protonix Tab) 40 mg BID PO 08/18/16 20:00 09/17/16 19:59 Valsartan (Diovan Tab) 40 mg HS PO 08/18/16 21:00 09/17/16 20:59 Verapamil HCl 120 mg 120 mg HS PO 08/18/16 21:00 09/17/16 20:59 Ampicillin Sodium/ Sulbactam Sodium/ Sodium Chloride (Unasyn Inj/Nss 100ml) 108 ml @ 200 mls/hr Q6H IV 08/18/16 18:00 08/25/16 16:59 08/18/16 17:30 200 MLS/HR Sodium Chloride ([place] Nasal [place]) 2 sprays Q1H PRN NA 08/18/16 18:30 09/17/16 18:29 UNV Objective Vital Signs Date Time Temp Pulse Resp B/P Pulse Ox O2 Delivery O2 Flow Rate FiO2 08/18/16 15:30 36.5 90 18 122/71 92 Room Air 08/18/16 15:18 89 16 98 Room Air 08/18/16 15:06 Room Air 08/18/16 11:22 99 18 96 Room Air 08/18/16 09:10 Room Air 08/18/16 07:33 36.7 104 20 126/78 92 08/18/16 07:21 101 18 98 Room Air 08/18/16 00:00 Room Air 08/17/16 23:12 36.6 109 18 126/81 90 Room Air 08/17/16 21:55 36.8 108 18 138/85 96 Room Air 08/17/16 21:54 119 18 96 Room Air Physical Exam General Appearance: WD/WN, no apparent distress Eyes: normal inspection (pupils equal) ENT: pharynx normal Neck: supple, no JVD Respiratory/Chest: no respiratory distress, no accessory muscle use, + wheezing (b/l back, no cracklse or rhonchi) Abdomen: normal bowel sounds, non tender, soft Extremities: no pedal edema, no calf tenderness, normal capillary refill Neurologic/Psychiatric: alert, normal mood/affect, oriented x 3 Laboratory Results 08/18/16 05:08 08/18/16 16:25 Test 08/18/16 05:08 08/18/16 16:25 Red Blood Count 4.16 M/uL (4.2-5.4) Mean Corpuscular Volume 83.2 fL (80-100) Mean Corpuscular Hemoglobin 27.6 pg (25-34) Mean Corpuscular Hemoglobin Concent 33.2 g/dl (32-36) RDW Standard Deviation 55.2 fL (36.4-46.3) RDW Coefficient of Variation 18.1 % (11.5-14.5) Mean Platelet Volume 10.3 fL (7.4-10.4) Anion Gap 15.0 mmol/L (3-11) Est Creatinine Clear Calc Drug Dose 51.0 ml/min Estimated GFR () 54.2 Estimated GFR (Non- 46.7 BUN/Creatinine Ratio 12.7 (10-20) Calcium Level 9.9 mg/dl (8.5-10.1) Magnesium Level 1.9 mg/dl (1.8-2.4) Date/Time Source Procedure Growth Status 08/18/16 00:00 Nasal MRSA DNA Surveillance Screen - Final Specimen Negative for MRSA by DNA Probe Complete Assessment and Plan Ms. 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 She does have a leukocytosis of 17.84 and CXR shows mild bibasilar opacities that may be more atelectasis vs infectious. Given her immunodeficiency admit for PNA treatment + asthma exacerbation. Community Acquired Pneumonia in Setting of Immunodeficiency: - Discussed with Dr Harrington about FHx of TB and CT findings and airborne precautions not required, continue in negative pressure room - CT does not show any consolidation therefore will step down antibiotics to Unasyn (switch to Augmentin on d/c) - Duonebs QID and Q2H PRN - Advair and Nasal spray - CTA - no PE - Mucinex 1200 mg Q12H and Tessalon Perles - Flutter valve, incentive spirometry - Blood and urine cultures taken as no definitive consolidation on CXR or CT, but has good Hx and risk factors for pneumonia Mild Asthma Exacerbation: - Methylprednisolone 40 mg IV BID, switch to PO prednisone tomorrow - Zyrtec 10 mg daily TB Exposure: - AFB sputum Cx - Quantiferon gold will likely be positive from exposure rather than active TB therefore no need to perform this. Hypothyroidism: - Synthroid 75 mcg daily Essential HTN: - Maxzide 1 tab daily and Valsartan 40 mg daily HLD: - Simvastatin 20 mg daily GERD: - Protonix 40 mg daily as interchange for home meds Migraines: - Verapamil 120 mg daily DVT Prophylaxis: - Lovenox 40 mg SC daily Disposition: - Lives at home without home needs anticipated Resident Physician Supervision Note: I was present with PGY2 Dr. Adán Talley during the history and exam. I discussed the case with the resident and agree with the findings and plan as documented in the note. Any exceptions or clarifications are listed here: none. "I feel better." Denies sputum just dry cough. No dyspnea. Eating is improved. VSS, no fever, o2 sats nl in room air gen - nad, obese mouth - MMM heart - RRR, s1, s2 lungs - scant end-exp wheeze, no rales, no distress abd - soft, NT, BS+ ext - trace edema labs - cbc, bmp acceptable A/P: 1. asthma w/ exacerbation - improved. Agree with transition to PO prednisone in AM. 2. concern of pneumonia - ruled out - none seen on CT or plain films; de- escalate antibiotics or stop them completely. 3. h/o TB exposure - in light of negative CT chest d/c precautions. 4. h/o IgG and IgM deficiencies - receives IVIG routinely. Defer on IVIG infusion at this time. updated anticipate d/c tomorrow Documented By: Adán Keita MD Resident Tracking Resident Involvement: Resident Care Provided Care Provided: Adult Hospital Medicine
[2016-08-18] MEDS ORDERED: SODIUM CHLORIDE 0.65% NA SOLN 45 ML (OCEAN) PRN (18:30)
[2016-08-18] MEDS: ALUMINUM/MAGNESIUM/SIMETH (MAALOX MAX) 30 ML UDC PO PRN (20:07)
[2016-08-18] MEDS: SIMVASTATIN 20 MG TAB PO SCH (20:08)
[2016-08-18] MEDS: PANTOprazole SOD 40 MG TAB PO SCH (20:08)
[2016-08-19] MEDS: AMPICILLIN/SULBACTAM SOD INJ 3,000 MG in SODIUM CHLORIDE 0.9% 100ML 100 ML IV SCH ×2 (00:15→06:06)
[2016-08-19] MEDS: ALUMINUM/MAGNESIUM/SIMETH (MAALOX MAX) 30 ML UDC PO PRN ×2 (01:15→06:06)
[2016-08-19] MEDS: METHYLPREDNISOLONE IV 40 MG in SYRINGE 0 ML IV SCH (01:16)
[2016-08-19] MEDS: LEVOTHYROXINE 75 MCG TAB PO SCH (06:06)
[2016-08-19 07:19] VITALS: PULSE 91; O2SAT 98
[2016-08-19] MEDS: ALBUT/IPRATROP 3MG/0.5MG NEB 3 ML VIAL INH SCH ×2 (07:19→11:38)
[2016-08-19] MEDS: PANTOprazole SOD 40 MG TAB PO SCH (07:54)
[2016-08-19] MEDS: GUAIFENESIN 600 MG TABCR PO SCH (07:55)
[2016-08-19] MEDS: ENOXAPARIN 40 MG/0.4 ML SYR SQ SCH (07:55)
[2016-08-19] MEDS: TRIAMTERENE/HCTZ 37.5/25MG TAB PO SCH (07:55)
[2016-08-19] MEDS: CETIRIZINE HCL 10 MG TAB PO SCH (07:55)
[2016-08-19] MEDS: FLUTICASONE/SALMETEROL (ADVAIR) 500/50 INH 14 PUFF INH SCH (07:55)
[2016-08-19] MEDS: TRIAMCINOLONE ACET NASAL SPRAY 10.8ML BTL NAE SCH (07:56)
[2016-08-19 08:31] VITALS: BP 134/72; PULSE 87; TEMP 36.5; O2SAT 97
[2016-08-19 11:38] VITALS: PULSE 91; O2SAT 98
[2016-08-19] MEDS ORDERED: AMOX875T PO (11:48)
[2016-08-19] MEDS ORDERED: PRED10TA PO (11:48)
--- NOTE | 2016-08-19 11:56 | Discharge Instructions ---
Discharge Instructions Admission Reason for Admission: Pneumonia (Adán Talley MD) Discharge Discharge Diagnosis / Problem: Community Aquired pneumonia with asthma exacerbation (Adán Talley MD) Discharge Goals Goal(s): Increase independence, Improve disease control (Adán Talley MD) Activity Recommendations Activity Limitations: as noted below Rest for 1 week (but still walking around the house as able) with gradual return to more exertional tasks based on symptoms (Adán Talley MD) Instructions / Follow-Up Instructions / Follow-Up You were admitted to [facility] with pneumonia and exacerbation of your asthma. You were treated with IV antibiotics and IV steroids. Use nebulizer treatments x4/day for the next 3-4 days then wean off if no longer having symptoms of chest tightness, wheezing or cough. Continue to use incentive spirometry at home. You are now medically stable for discharge and doing well. You are being discharged on oral antibiotics and prednisone. Rest and keep hydrated at home Please follow up with your silverware washer Dr Harrington within the next week (we will arrange this appointment for you. (Adán Talley MD) Current Hospital Diet Patient's current hospital diet: Regular Diet (Adán Talley MD) Discharge Diet Recommended Diet: Regular Diet (Adán Talley MD) Pending Studies Studies pending at discharge: yes List of pending studies: Blood and urine cultures - please follow up with your silverware washer regarding these. (Adán Talley MD) Medical Emergencies . Who to Call and When: Medical Emergencies: If at any time you feel your situation is an emergency, please call 911 immediately. . (Adán Talley MD) Non-Emergent Contact Non-Emergency issues call your: Primary Care Provider, Manager Balance Call Non-Emergent contact if: you have a fever . (Adán Talley MD) . "Provider Documentation" section prepared by Adán Talley. (Adán Talley MD) Attending Attestation: Pt seen & examined with PGY2 Dr. Adán Talley on the day of discharge and I agree with his discharge instructions as outlined. Adán Keita MD (Adán Keita MD) VTE Core Measure Inpt VTE Proph given/why not?: Enoxaparin (Lovenox)SQ (Adán Talley MD) Resident Tracking Resident Involvement: Resident Care Provided Care Provided: Adult Hospital Medicine (Adán Talley MD)
[2016-08-19] MEDS ORDERED: IPRASOL4 INH (12:00)
[2016-08-19] MEDS ORDERED: BENZ100C7 PO (12:00)
[2016-08-19] MEDS ORDERED: LANS30CA12 PO (12:00)
[2016-08-19 12:17] VITALS: BP 134/72; PULSE 91; TEMP 36.5; O2SAT 98
[2016-08-19] MEDS ORDERED: VANCOMYCIN TROUGH SCH (17:30)
--- NOTE | 2016-08-20 00:13 | Discharge Summary ---
Discharge Summary Admission Date: Aug 17, 2016 at 14:56 Discharge Date: Aug 19, 2016 Discharge Disposition: Home Principal Diagnosis: Community Acquired Pneumonia Problems/Secondary Diagnoses: Asthma Exacerbation Immunizations: Have You Had Influenza Vaccine: Unknown History of Tetanus Vaccine?: Yes History of Pneumococcal: Unknown History of Hepatitis B Vaccine: Unknown (Adán Talley MD) Problems/Secondary Diagnoses: HTN hypothyroidism h/o IgG and IgM deficiency Procedures: CTA chest - negative for PE or infiltrates (Adán Keita MD) Medication Reconciliation New Medications: Amoxicillin & Pot Clavulanate (Augmentin 875-125 mg) 1 Tab Tab 1 TAB PO BID for 8 Days, #16 TAB Prednisone Tab (Prednisone) 10 Mg Tab 10 MG PO UD for 16 Days, #40 TAB Take 40 mg daily for 4 days then 30 mg daily for 4 days then 20 mg daily for 4 days then 10 mg daily for 4 days then stop Benzonatate (Benzonatate) 100 Mg Cap 100 MG PO TID PRN for Cough, #14 CAP Ipratropium-Albuterol (Duoneb) 3 Ml Nebu 3 ML INH QIDR PRN for Wheezing, #30 Use for wheezing, chest tightness and cough. Changed Medications: Lansoprazole (Prevacid) 30 Mg Capcr 30 MG PO BID for 30 Days, #60 CAP (Changed from: DAILY) Continued Medications: Albuterol Hfa (Ventolin Hfa) 200 Puffs/36804 Mcg Aers 2 PUFFS INH Q4H PRN for SOB/Wheezing, #1 INHALER Albuterol Sulf (Proventil 0.083% 2.5MG/3ML) 2.5 Mg/3 Ml Nebu 2.5 MG INH QID PRN for SOB/Wheezing, EA Cetirizine Hcl (Zyrtec) 10 Mg Tab 10 MG PO DAILY, TAB Fish Oil ([place]-3) 1 Ea Cap 1 CAPSULE PO DAILY, 0 Refills Fluticasone Prop/Salmeterol (Advair Diskus 500/50 60 Dose) 1 Ea Aerp 1 PUFF INH BID Levothyroxine Sodium (Synthroid) 75 Mcg Tab 75 MCG PO DAILY Multiple Vitamin (Multivitamin) 1 Tab Tab 1 TAB PO DAILY, TAB Ocuvite Preservision (Ocuvite Preservision) 1 Tab Tab 1 TABLET PO DAILY Ranitidine (Zantac) 300 Mg Tab 300 MG PO HS, TAB Simvastatin (Zocor) 20 Mg Tab 20 MG PO QPM, 0 Refills Triamcinolone Acetonide (Nasal (Nasacort Allergy 24Hr) 55 Mcg/Act Spr 2 SPRAYS YARIEL DAILY Triamterene/Hctz (Triamterene/Hctz 37.5-25MG) 1 Tab Tab 1 TAB PO DAILY for 90 Days, #90 TAB 1 Refill Valsartan (Diovan) 40 Mg Tab 40 MG PO DAILY, TAB Verapamil Hcl (Verapamil Hcl Er) 120 Mg Tab 120 MG PO DAILY [Ivig] () 1 DOSE IV Q4WK Discharge Exam Mrs Cruz was feeling well this morning. No chest pain/tightness or wheezing. Managing to cough up some mucus. 10 systems review otherwise negative Physical Exam: General Appearance: WD/WN, no apparent distress, + obese Neck: supple Respiratory/Chest: chest non-tender, lungs clear, normal breath sounds, no respiratory distress, no accessory muscle use Cardiovascular: regular rate, rhythm, no murmur, normal peripheral pulses Abdomen / GI: normal bowel sounds, non tender, soft Extremities: no pedal edema, + pedal edema (2+ at ankles, reports she gets swelling when sitting for long periods) Neurologic/Psychiatric: no motor/sensory deficits (no facial droop), alert, oriented x 3 (Adán Talley MD) Hospital Course Mrs Cruz was admitted to [facility] with pneumonia and asthma exacerbation. She was treated with duonebs, IV Unasyn and IV steroids while inpatient for 2 days. She recovered well and was discharged with her usual tapering steroid course and Augmentin. Her calcium was also noted to be mildly elevated and she notes frequent tums use. She was advised to take her lansoprazole twice/day during acute illnesses and advised to follow up with her PCP for this.. Recommend following up with her hydroelectric station operator office in the next week. Total Time Spent: Less than 30 minutes This includes examination of the patient, discharge planning, medication reconciliation, and communication with other providers. (Adán Talley MD) Resident Physician Supervision Note: I was present with PGY2 Dr. Adán Talley during the discharge history and exam. I discussed the case with the resident and agree with the findings and plan as documented in this discharge summary. Any exceptions or clarifications are listed here: there was no radiographic evidence of pneumonia but there was clinical suspicion for RLL pneumonia based on exam findings. 65yo female with h/o IgG/IgM deficiency, asthma, GERD, and HTN who presented with worsening asthma exacerbation and concern for pneumonia. She made rapid improvement with IV steroids, nebs, and antibiotic therapy. Blood cultures remained negative while here and she never had an O2 requirement. She will complete a prednisone taper and antibiotic course after discharge. Follow-up with her primary hydroelectric station operator within 1 week was recommended. Discharge exam: gen - NAD mouth - no thrush neck - no JVD heart - RRR, s1, s2 lungs - CTA b/l, slight crackle right base abd - soft, NT ext - 1+ edema (chronic per patient) Adán Keita MD (Adán Keita MD) Discharge Instructions Please refer to the electronic Patient Visit Report (Discharge Instructions) for additional information. (Adán Talley MD) Follow-Up Dr Harrington's office in the next week (Adán Talley MD) Additional Copies To Joselito Harrington M.D. Resident Tracking Resident Involvement: Resident Care Provided Care Provided: Adult Hospital Medicine (Adán Talley MD)
[2016-11-01] MEDS ORDERED: FIBER PO (10:50)
[2016-11-01] MEDS ORDERED: LANS30CA12 PO (10:50)
[2016-11-01] MEDS ORDERED: LEVO50TA PO (10:50)
[2016-11-16] MEDS ORDERED: HYDR-5688 PO ×2 (07:41→08:14)
== END 2016-08-19 12:58 | disposition home or self-care (01) | DRG 194 ==
LOC: ENRESERVDT → ENRESERVTM → EDBD 09:29 → C.EDC 09:30 → C.4E 14:56 → EDBEDREQ 15:02
PROVIDERS: ADMIT Hospitalist; ATTEND Internal Medicine
DX: J18.9 Pneumonia, unspecified organism (principal); D80.3 Selective deficiency of immunoglobulin G [IgG] subclasses; D80.4 Selective deficiency of immunoglobulin M [IgM]; J45.901 Unspecified asthma with (acute) exacerbation; K21.9 Gastro-esophageal reflux disease without esophagitis; E78.00 Pure hypercholesterolemia, unspecified; I10 Essential (primary) hypertension; E03.9 Hypothyroidism, unspecified; E66.9 Obesity, unspecified; Z79.899 Other long term (current) drug therapy; Z86.718 Personal history of other venous thrombosis and embolism; Z86.711 Personal history of pulmonary embolism; Z68.38 Body mass index [BMI] 38.0-38.9, adult

== ENCOUNTER → 2016-10-24 | Outpatient (CLI) | payer BC, OTHER ==
[~2016-10-24] MED LIST changes: +ALBINS/ INH; -ALBU0.08 INH; -ALBUAER19 INH; +BENZ100C7 PO; +FIBER PO; +HYDR-5688 PO; +IPRASOL4 INH; +IVIG IV; +LEVO50TA PO; -PRED10TA PO; -RIVA1TAB4 PO; -TRIA1SPR2 NAE; +TRIA1SPR4 NAE; +VNTHFA/IN INH
== END | disposition home or self-care (01) ==
LOC: C.RDSM 16:01
PROVIDERS: ATTEND Physical Medicine & Rehabilitation Sports Medicine
DX: Z96.651 Presence of right artificial knee joint (principal)

== ENCOUNTER 2016-11-15 13:42 | Emergency (ER) | payer BC ==
[~2016-11-15] VITALS: Ht 160 cm; Wt 98.9 kg
[~2016-11-15 13:42] MED LIST changes: -BENZ100C7 PO; -HYDR-5688 PO; -IPRASOL4 INH
[2016-11-15 13:52] VITALS: Ht 160 cm; Wt 98.9 kg
[2016-11-15] MEDS ORDERED: DIPHTHERIA/TETANUS/PERTUSSIS 0.5 ML SYR/VIAL IM. ONE (14:30)
[2016-11-15 14:36] VITALS: BP 125/78; PULSE 109; TEMP 37; O2SAT 95
--- NOTE | 2016-11-15 14:58 | EMERGENCY ROOM VISIT NOTE ---
ED Visit Note First contact with patient: 14:00 CHIEF COMPLAINT: Forearm laceration HISTORY OF PRESENT ILLNESS: This 66 year old female patient presents to the emergency department after cutting her right forearm yesterday on a cardboard box. The patient states that she had a wart on her right forearm, and she reached into a box cardboard avulsed the wart. This occurred roughly 24 hours ago. The bleeding has stopped. Denies weakness or numbness of the arm. The patient rates the pain as dull and 5/10. The patient denies any other injuries. The patient's Tetanus shot is not up to date. REVIEW OF SYSTEMS: A 6 system review of systems was completed with positives and pertinent negatives listed in the HPI. ALLERGIES: See EMR MEDICATIONS: See EMR PMH: See EMR SOCIAL HISTORY: Lives locally PHYSICAL EXAM: Vital Signs: Reviewed Nurse's notes, vital signs stable. GENERAL : White female, in no acute distress, well-developed, well-nourished. SKIN: There is a circular 1.0 cm diameter avulsion laceration on the volar aspect of the right forearm. The edges gape apart with traction. There is no foreign material in the wound and it looks clean. There is no bleeding. No deep structures such as tendons, bones, or significant blood vessels are seen in the base of the wound. Normal strength and movement of the entire extremity. Capillary refill less than 2 seconds. Normal sensation to light and sharp touch. EMERGENCY DEPARTMENT COURSE: Physical exam and history were performed. Nursing notes and EMR were reviewed. The patient appears to have an avulsion laceration to a wart that was previously in place. On exam this areas without significant bleeding or evidence of infection. The wound appears to be healing well at this time. The patient will be given a tetanus booster and will be managed conservatively. She is to use antibiotic ointment and follow-up with her primary care physician in the next few days. She was otherwise invited back to the ER with any new, worsening, or concerning symptoms. Problem List Medical Problems: (1) Asthma Status: Chronic (2) Breast Biopsy 2006 Status: Resolved (3) Chronic asthmatic bronchitis Status: Chronic (4) Gastroesophageal reflux disease Status: Chronic (5) GERD Status: Chronic (6) Hypercholesterolemia Status: Chronic (7) Hypertension Status: Chronic (8) Hypothyroidism Status: Chronic (9) Hysterectomy 1989 Status: Resolved (10) Knee Replacement Surgery Status: Resolved (11) Pneumonia Status: Chronic (12) Rhinitis Status: Chronic (13) Right Rotator Cuff Repair 2004 Status: Resolved (14) Seasonal Allergies Status: Chronic (15) Vaginal Repair 1999 Status: Resolved Current/Historical Medications Scheduled Cetirizine Hcl (Zyrtec), 10 MG PO QAM Fiber Laxative (Fiber Laxative), 1 TAB PO BID Fish Oil ([place]-3), 1 CAPSULE PO BID Fluticasone Prop/Salmeterol (Advair Diskus 500/50 60 Dose), 1 PUFF INH BID Lansoprazole (Prevacid), 30 MG PO HS Levothyroxine Sodium (Synthroid), 75 MCG PO Q2D Levothyroxine Sodium (Synthroid), 50 MCG PO Q2D Multiple Vitamin (Multivitamin), 1 TAB PO QAM Ocuvite Preservision (Ocuvite Preservision), 1 TABLET PO BID Ranitidine (Zantac), 300 MG PO HS Simvastatin (Zocor), 20 MG PO QPM Triamcinolone Acetonide (Nasal (Nasacort Allergy 24Hr), 2 SPRAYS YARIEL QAM Triamterene/Hctz (Triamterene/Hctz 37.5-25MG), 1 TAB PO QAM Valsartan (Diovan), 40 MG PO HS Verapamil Hcl (Verapamil Hcl Er), 120 MG PO HS [Ivig], 1 DOSE IV Q4WK Scheduled PRN Albuterol Hfa (Ventolin Hfa), 2 PUFFS INH Q4H PRN for SOB/Wheezing Albuterol Sulf (Proventil 0.083% 2.5MG/3ML), 2.5 MG INH QID PRN for SOB/Wheezing Allergies Coded Allergies: Erythromycin (Unverified Allergy, Severe, NAUSEA, DRY HEAVES, 11/01/16) Levofloxacin (Verified Allergy, Severe, Anaphylaxis, 11/01/16) Aspirin (Verified Allergy, Unknown, HIVES, 11/01/16) Fluticasone (Verified Adverse Reaction, Unknown, DIZZINESS, 11/01/16) Vital Signs Date Time Temp Pulse Resp B/P Pulse Ox O2 Delivery O2 Flow Rate FiO2 11/15/16 14:36 37.0 109 18 125/78 95 11/15/16 13:52 37.0 109 18 125/78 95 Room Air Medications Administered Medications (Trade) Dose Ordered Sig/Ross Route Start Time Stop Time Status Last Admin Dose Admin Diphtheria/ Pertussis/Tetanus Vacc (Adacel Inj) 0.5 ml ONCE ONCE IM. 11/15/16 14:30 11/15/16 14:31 DC 11/15/16 14:34 0.5 ML Departure Information Impression Primary Impression: Forearm laceration Dispostion Home / Self-Care Condition GOOD Forms HOME CARE DOCUMENTATION FORM, IMPORTANT VISIT INFORMATION Patient Instructions My [facility] Additional Instructions You were seen and evaluated today on an emergency basis only. This is not a substitute for, or an effort to provide, complete comprehensive medical care. It is not possible to recognize and treat all injuries or illnesses in a single emergency department visit. For this reason it is recommended that you followup with your primary care physician with any ongoing or persistent symptoms. Apply an antibiotic ointment for the next 2 days then leave open to the air. Monitor for signs of infection. Increased redness and swelling should be reevaluated by your family doctor or in the ER. You are welcome to return to the emergency department anytime with new, worsening, or concerning symptoms.
[2016-11-16] MEDS ORDERED: HYDR-5688 PO ×2 (07:41→08:14)
== END 2016-11-15 14:38 | disposition home or self-care (01) ==
LOC: C.EDB 13:44 → C.EDD 14:38
DX: S51.811A Laceration without foreign body of right forearm, initial encounter (principal); W45.8XXA Other foreign body or object entering through skin, initial encounter; Z23 Encounter for immunization; J45.909 Unspecified asthma, uncomplicated; K21.9 Gastro-esophageal reflux disease without esophagitis; E78.00 Pure hypercholesterolemia, unspecified; I10 Essential (primary) hypertension; E03.9 Hypothyroidism, unspecified; Z90.710 Acquired absence of both cervix and uterus; Z87.01 Personal history of pneumonia (recurrent); Z96.659 Presence of unspecified artificial knee joint; Z79.899 Other long term (current) drug therapy

== ENCOUNTER → 2016-11-16 | Day surgery (SDC) | payer BC ==
[2016-11-01 10:50] VITALS: BMI 39.0
[~2016-11-16] VITALS: Ht 160 cm; Wt 100.0 kg
[~2016-11-16] MED LIST changes: +ATROPINE SULFATE 0.1 MG/ML 5ML SYR IV PRN; +CEFAZOLIN 2000 MG/60 ML D5W IV SCH; +CEFAZOLIN SOD 1 GM VIAL ONE; +CEFAZOLIN SOD 2000 MG in DEXTROSE 5% 50ML IV SCH; +EpHEDrine SULFATE INJ 50 MG/ML AMP IV PRN; +FENTANYL CITRATE INJ 50 MCG/1 ML 2 ML VIAL IV PRN; +FENTANYL CITRATE INJ 50 MCG/1 ML 2 ML VIAL ONE; +HEPARIN SOD (PORCINE) 1000 UNIT/ML 10 ML VIAL ONE; +HYDR-5688 PO; +HYDROCODONE/ACETAMOPHEN 5/325MG TAB PO PRN; +LACTATED RINGER'S 1000ML 1,000 ML IV SCH; +LIDOCAINE HCL 1% 20 ML VIAL ONE; +LIDOCAINE HCL 2% 2 ML VIAL (20MG/ML) ONE; +MIDAZOLAM HCL 1 MG/ML 2ML VIAL ONE; +ONDANSETRON INJ 2 MG/ML 2 ML VIAL IV PRN; +PROPOFOL IV EMULSION 10 MG/ML 20 ML VIAL IV ONE; +THROMBIN FOR SOLN 20000 UNIT KIT ONE
[2016-11-16 05:42] VITALS: BP 128/71; PULSE 100; TEMP 36.8; O2SAT 95; Ht 160 cm; Wt 100.0 kg
--- NOTE | 2016-11-16 06:56 | History & Physical Bridge Note ---
H&P Re-Evaluation Bridge Note: I have examined the patient, reviewed the History & Physical and in the interval since the performance of the History & Physical I have noted the following changes of clinical significance: No changes noted
--- NOTE | 2016-11-16 07:42 | Discharge Instructions ---
Discharge Instructions Date of Service November 16, 2016. Visit Reason for Visit: Hypogammaglobulinemia Discharge Discharge Diagnosis / Problem: A-port placement Discharge Goals Goal(s): Improve disease control Activity Recommendations Activity Limitations: as noted below Shower/Bathe: keep incision dry (for 2 days) Driving or Machine Use: if not taking [place] Anesthesia . Post Anesthesia Instructions: If you have had General Anesthesia or IV Sedation: * Do not drive today. * Resume driving when surgeon permits. * Do not make important decisions or sign legal documents today. * Call surgeon for: 1. Temperature elevations greater than 101 degrees F. 2. Uncontrollable pain. 3. Excessive bleeding. 4. Persistent nausea and vomiting. 5. Medication intolerance (nausea, vomiting or rash). * For nausea and vomiting use only clear liquids such as: tea, soda, bouillon until nausea subsides, then gradually increase diet as tolerated. * If you have any concerns or questions, call your surgeon's office. If physician is unavailable and it is an emergency, call 911 or go to the nearest emergency room. . Instructions / Follow-Up Instructions / Follow-Up Dr. Hay's office in 2 weeks for suture removal, call [phone] Diet Recommendations Recommended Home Diet: no limitations Pending Studies Studies pending at discharge: no Medical Emergencies . Who to Call and When: Medical Emergencies: If at any time you feel your situation is an emergency, please call 911 immediately. . Non-Emergent Contact Non-Emergency issues call your: Surgeon Call Non-Emergent contact if: you have a fever, temperature is above 101.5, your pain is not controlled, wound has increased redness . . "Provider Documentation" section prepared by Edwin Wing. .
--- NOTE | 2016-11-16 07:59 | [facility] Post Operative Brief Note ---
Immediate Operative Summary Operative Date November 16, 2016. Pre-Operative Diagnosis bronchitis, asthma Post-Operative Diagnosis same Procedure(s) Performed port placement Surgeon vito Balcony Worker Surgeon(s) nurses Estimated Blood Loss 5cc Findings placed via Lt cephalic vein Specimens none Anesthesia local/ sedation Complication(s) None Disposition Recovery Room / PACU
--- NOTE | 2016-11-16 08:12 | Anesthesiology Progress Note ---
Anesthesia Post Op Note Date & Time November 16, 2016 at 08:12 Vital Signs Pain Intensity: 0 Vital Signs Past 12 Hours Date Time Temp Pulse Resp B/P Pulse Ox O2 Delivery O2 Flow Rate FiO2 11/16/16 08:05 91 21 139/79 99 Room Air 11/16/16 07:57 36.6 92 16 111/65 100 Mask 10 11/16/16 05:42 36.8 100 20 128/71 95 Room Air Notes Mental Status: alert / awake / arousable, participated in evaluation Pt Amnestic to Procedure: Yes Nausea / Vomiting: adequately controlled Pain: adequately controlled Airway Patency, RR, SpO2: stable & adequate BP & HR: stable & adequate Hydration State: stable & adequate Anesthetic Complications: no major complications apparent
--- NOTE | 2016-11-16 08:17 | DIAGNOSTIC IMAGING REPORT ---
CHEST ONE VIEW PORTABLE HISTORY: Port placement. COMPARISON: Chest 08/17/2016. FINDINGS: Left subclavian Port-A-Cath which terminates in the proximal SVC. No pneumothorax. The heart is normal in size. Linear densities at the left lung base favor scarring or subsegmental atelectasis. The lungs are otherwise clear. No pleural effusions. Small retrocardiac lobular density favors a hiatus hernia. IMPRESSION: Left subclavian Port-A-Cath terminates in the proximal SVC. No pneumothorax. Electronically signed by: Roberto Harris M.D. 11/16/2016 8:16 AM Dictated Date/Time: 11/16/2016 8:15 AM
[2016-11-16 08:20] VITALS: BP 122/65; PULSE 80; TEMP 36.6; O2SAT 98
--- NOTE | 2016-11-16 08:40 | OPERATIVE REPORT ---
DATE OF OPERATION: 11/16/2016 PREOPERATIVE DIAGNOSIS: History of asthma and bronchitis. POSTOPERATIVE DIAGNOSIS: Same. NAME OF OPERATION: Port placement. STAFF SURGEON: Dr. Hay. ANESTHESIA: 1% plain lidocaine with sedation. PROCEDURE: The patient was brought in the operating room and placed on the operating table in supine position. A towel roll was placed between her shoulders. Her chest and neck were prepped and draped in usual fashion. 1% plain lidocaine was used to anesthetize the skin and subcutaneous tissue over the left deltopectoral groove. Incision made carrying dissection deeply down through adipose tissue identifying the left cephalic vein. It was ligated distally using 2-0 silk suture and then opened. Under fluoroscopy a catheter was passed down into the superior vena cava. It was secured in place using 2-0 silk suture and 2-0 chromic catgut suture. The catheter was aspirated and flushed with heparinized solution. A pocket was fashioned in the subcutaneous tissue. Catheter attached to the port. Port placed into the pocket and secured to the tissue using 3-0 Prolene suture. The port was then aspirated and flushed with heparinized solution. The pocket was then irrigated with antibiotic solution and the tissue was then reapproximated using 2-0 chromic catgut and 2-0 plain for the deep tissue and then 4-0 nylon for the skin. The patient was transferred to recovery room in stable condition. I attest to the content of the Intraoperative Record and any orders documented therein. Any exceptio ns are noted below.
[2016-11-16 08:50] VITALS: BP 123/56; PULSE 79; O2SAT 99
== END | disposition home or self-care (01) ==
LOC: C.ACU 05:06
PROVIDERS: ATTEND Surgery
DX: J45.909 Unspecified asthma, uncomplicated (principal); I87.8 Other specified disorders of veins; D80.1 Nonfamilial hypogammaglobulinemia; E78.5 Hyperlipidemia, unspecified; K21.9 Gastro-esophageal reflux disease without esophagitis; I10 Essential (primary) hypertension; E03.9 Hypothyroidism, unspecified; Z86.718 Personal history of other venous thrombosis and embolism; Z87.01 Personal history of pneumonia (recurrent); Z86.711 Personal history of pulmonary embolism; Z90.710 Acquired absence of both cervix and uterus; Z96.659 Presence of unspecified artificial knee joint; E78.00 Pure hypercholesterolemia, unspecified; Z92.241 Personal history of systemic steroid therapy; E66.9 Obesity, unspecified

== ENCOUNTER 2016-11-29 00:29 | Emergency (ER) | payer BC ==
[~2016-11-29] VITALS: Ht 160 cm; Wt 99.0 kg
[~2016-11-29 00:29] MED LIST changes: -ATROPINE SULFATE 0.1 MG/ML 5ML SYR IV PRN; -CEFAZOLIN 2000 MG/60 ML D5W IV SCH; -CEFAZOLIN SOD 1 GM VIAL ONE; -CEFAZOLIN SOD 2000 MG in DEXTROSE 5% 50ML IV SCH; -EpHEDrine SULFATE INJ 50 MG/ML AMP IV PRN; -FENTANYL CITRATE INJ 50 MCG/1 ML 2 ML VIAL IV PRN; -FENTANYL CITRATE INJ 50 MCG/1 ML 2 ML VIAL ONE; -HEPARIN SOD (PORCINE) 1000 UNIT/ML 10 ML VIAL ONE; -HYDROCODONE/ACETAMOPHEN 5/325MG TAB PO PRN; -LACTATED RINGER'S 1000ML 1,000 ML IV SCH; -LIDOCAINE HCL 1% 20 ML VIAL ONE; -LIDOCAINE HCL 2% 2 ML VIAL (20MG/ML) ONE; -MIDAZOLAM HCL 1 MG/ML 2ML VIAL ONE; -ONDANSETRON INJ 2 MG/ML 2 ML VIAL IV PRN; -PROPOFOL IV EMULSION 10 MG/ML 20 ML VIAL IV ONE; -THROMBIN FOR SOLN 20000 UNIT KIT ONE
[2016-11-29 00:33] VITALS: Ht 160 cm; Wt 99.0 kg
--- NOTE | 2016-11-29 00:55 | EMERGENCY ROOM VISIT NOTE ---
History Report prepared by Binta: Lawanda Santos Under the Supervision of: Dr. Fabian Price D.O. First contact with patient: 00:36 Chief Complaint: SYNCOPE (NEAR SYNCOPE) Stated Complaint: FALL/DIZZY/NAUSEA History of Present Illness The patient is a 66 year old female who presents to the Emergency Room with complaints of an episode of syncope PATIENT ACCESS COORDINATOR. She reports that she has been constipated with abdominal cramping. She was having a bowel movement earlier today. She was sitting on the commode when she lost consciousness and fell face first. She felt herself starting to pass out. She reports left foot pain, nausea , headache, and tongue bite. She denies any neck pain. She is not on any blood thinners. She has experienced this in the past. Source of History: patient Onset: PATIENT ACCESS COORDINATOR Position: other (global) Quality: other (syncope) Timing: other (episodic) Associated Symptoms: + headache, + nausea, No neck pain Note: Pt reports left foot pain, tongue bite. Review of Systems See HPI for pertinent positives and negatives. A total of ten systems were reviewed and were otherwise negative. Past Medical & Surgical Medical Problems: (1) Asthma (2) Breast Biopsy 2006 (3) Chronic asthmatic bronchitis (4) Gastroesophageal reflux disease (5) GERD (6) Hypercholesterolemia (7) Hypertension (8) Hypothyroidism (9) Hysterectomy 1989 (10) Knee Replacement Surgery (11) Pneumonia (12) Rhinitis (13) Right Rotator Cuff Repair 2004 (14) Seasonal Allergies (15) Vaginal Repair 1999 Family History Hypertension Lung disease Social History Smoking Status: Never Smoker Alcohol Use: occasionally Drug Use: none Marital Status: Housing Status: lives with family Occupation Status: retired Current/Historical Medications Scheduled Cetirizine Hcl (Zyrtec), 10 MG PO QAM Fiber Laxative (Fiber Laxative), 1 TAB PO BID Fish Oil ([place]-3), 1 CAPSULE PO BID Fluticasone Prop/Salmeterol (Advair Diskus 500/50 60 Dose), 1 PUFF INH BID Lansoprazole (Prevacid), 30 MG PO HS Levothyroxine Sodium (Synthroid), 75 MCG PO Q2D Levothyroxine Sodium (Synthroid), 50 MCG PO Q2D Multiple Vitamin (Multivitamin), 1 TAB PO QAM Ocuvite Preservision (Ocuvite Preservision), 1 TABLET PO BID Ranitidine (Zantac), 300 MG PO HS Simvastatin (Zocor), 20 MG PO QPM Triamcinolone Acetonide (Nasal (Nasacort Allergy 24Hr), 2 SPRAYS YARIEL QAM Triamterene/Hctz (Triamterene/Hctz 37.5-25MG), 1 TAB PO QAM Valsartan (Diovan), 40 MG PO HS Verapamil Hcl (Verapamil Hcl Er), 120 MG PO HS [Ivig], 1 DOSE IV Q4WK Scheduled PRN Albuterol Hfa (Ventolin Hfa), 2 PUFFS INH Q4H PRN for SOB/Wheezing Albuterol Sulf (Proventil 0.083% 2.5MG/3ML), 2.5 MG INH QID PRN for SOB/Wheezing Hydrocodone/Acetaminophen 5MG/325MG ([place] 5MG/325MG), 1 TABLET PO Q4H PRN for Pain Hydrocodone/Acetaminophen 5MG/325MG ([place] 5MG/325MG), 1-2 TABLET PO q 6 hrs PRN for Pain Allergies Coded Allergies: Erythromycin (Verified Allergy, Severe, NAUSEA, DRY HEAVES, 11/16/16) Levofloxacin (Verified Allergy, Severe, Anaphylaxis, 11/01/16) POLLEN (Verified Allergy, Intermediate, SHORTNESS OF BREATH, 11/16/16) Aspirin (Verified Allergy, Unknown, HIVES, 11/01/16) Fluticasone (Verified Adverse Reaction, Unknown, DIZZINESS, 11/01/16) Physical Exam Vital Signs Date Time Temp Pulse Resp B/P Pulse Ox O2 Delivery O2 Flow Rate FiO2 11/29/16 00:55 Room Air 11/29/16 00:35 76 11/29/16 00:33 36.6 77 16 107/64 98 Room Air Physical Exam GENERAL: Awake, alert, well-appearing, in no distress HENT: Left frontal contusion, left cheek contusion, abrasion anterior tongue. EYES: Normal conjunctiva. Sclera non-icteric. NECK: Supple, nontender. No nuchal rigidity. FROM. No JVD. RESPIRATORY: Clear to auscultation. CARDIAC: Regular rate, normal rhythm. Extremities warm and well perfused. Pulses equal. ABDOMEN: Soft, non-distended. No tenderness to palpation. No rebound or guarding. No masses. RECTAL: Deferred. MUSCULOSKELETAL: Chest examination reveals no tenderness. The back is symmetrical on inspection without obvious abnormality. There is no CVA tenderness to palpation. No joint edema. LOWER EXTREMITIES: Tenderness to the lateral aspect of the left food, no obvious deformity, neurovascularly intact. NEURO: Normal sensorium. No sensory or motor deficits noted. GCS 15. SKIN: No rash or jaundice noted. Medical Decision & Procedures ER Provider Diagnostic Interpretation: X-ray: Per my interpretation. Radiology results as stated below per my review and [facility] radiologist interpretation Left foot X-ray shows oblique fracture of the distal [address] C spine: No evidence of acute fracture. Multilevel degenerative changes, similar to prior CT 10/12/15. Left sided Port-A-Cath. CT Head: No acute intracranial finding. Mild left frontal scalp soft tissue swelling. Laboratory Results 11/29/16 01:38 Red Blood Count 4.69, Mean Corpuscular Volume 85.3, Mean Corpuscular Hemoglobin 27.7, Mean Corpuscular Hemoglobin Concent 32.5, Mean Platelet Volume 9.8, Neutrophils (%) (Auto) 76.2, Lymphocytes (%) (Auto) 15.5, Monocytes (%) (Auto) 6.2, Eosinophils (%) (Auto) 1.3, Basophils (%) (Auto) 0.2, Neutrophils # (Auto) 10.74, Lymphocytes # (Auto) 2.19, Monocytes # (Auto) 0.87, Eosinophils # (Auto) 0.18, Basophils # (Auto) 0.03 11/29/16 01:38 Test 11/29/16 01:38 11/29/16 01:43 White Blood Count 14.10 K/uL (4.8-10.8) Red Blood Count 4.69 M/uL (4.2-5.4) Hemoglobin 13.0 g/dL (12.0-16.0) Hematocrit 40.0 % (37-47) Mean Corpuscular Volume 85.3 fL (80-100) Mean Corpuscular Hemoglobin 27.7 pg (25-34) Mean Corpuscular Hemoglobin Concent 32.5 g/dl (32-36) Platelet Count 296 K/uL (130-400) Mean Platelet Volume 9.8 fL (7.4-10.4) Neutrophils (%) (Auto) 76.2 % Lymphocytes (%) (Auto) 15.5 % Monocytes (%) (Auto) 6.2 % Eosinophils (%) (Auto) 1.3 % Basophils (%) (Auto) 0.2 % Neutrophils # (Auto) 10.74 K/uL (1.4-6.5) Lymphocytes # (Auto) 2.19 K/uL (1.2-3.4) Monocytes # (Auto) 0.87 K/uL (0.11-0.59) Eosinophils # (Auto) 0.18 K/uL (0-0.5) Basophils # (Auto) 0.03 K/uL (0-0.2) RDW Standard Deviation 54.7 fL (36.4-46.3) RDW Coefficient of Variation 17.5 % (11.5-14.5) Immature Granulocyte % (Auto) 0.6 % Immature Granulocyte # (Auto) 0.09 K/uL (0.00-0.02) Anion Gap 9.0 mmol/L (3-11) Est Creatinine Clear Calc Drug Dose 50.3 ml/min Estimated GFR () 53.8 Estimated GFR (Non- 46.4 BUN/Creatinine Ratio 13.3 (10-20) Calcium Level 10.1 mg/dl (8.5-10.1) Total Bilirubin 0.7 mg/dl (0.2-1) Direct Bilirubin < 0.1 mg/dl (0-0.2) Aspartate Amino Transf (AST/SGOT) 22 U/L (15-37) Alanine Aminotransferase (ALT/SGPT) 25 U/L (12-78) Alkaline Phosphatase 100 U/L (45-117) Total Protein 7.9 gm/dl (6.4-8.2) Albumin 3.4 gm/dl (3.4-5.0) Bedside Troponin I 0.000 ng/ml (0-0.045) Laboratory results reviewed by me ECG Indication: syncope Rate (beats per minute): 74 Rhythm: normal sinus Findings: no acute ischemic change, other (normal axis, normal intervals) ED Course 0042: The patient was evaluated in room A4B. A complete history and physical exam was performed. 0214: I reevaluated the patient. She is resting in no distress. I discussed results and discharge instructions with her and her : they verbalized understanding and agreement. The patient is ready for discharge. Medical Decision Differential diagnoses include but are not limited to; closed head injury, intracranial hemorrhage, skull fracture, cervical spine injury, left foot contusion, sprain, strain, fracture, syncope, vasovagal event. Medication Reconciliation: I attest that I have personally reviewed the patient' s current medication list. Blood pressure screening: Patient was found to have normal blood pressure on screening and does not require follow-up. Patient in no distress except for slight left foot pain at 2:20 AM. Patient has a GCS of 15. Patient has a nonfocal neurologic exam. I discussed the evaluation with the patient patient's at bedside. I suspect that this was a vasovagal syncope event she has had these in the past after bowel movements. Patient also has an established orthopedic physician which she will go to regarding her left foot metatarsal fracture. Patient was placed in a postop shoe by nursing staff. Impression Primary Impression: Syncope Additional Impressions: Closed head injury Fracture of fifth metatarsal bone of left foot Scribe Attestation The scribe's documentation has been prepared under my direction and personally reviewed by me in its entirety. I confirm that the note above accurately reflects all work, treatment, procedures, and medical decision making performed by me. Departure Information Dispostion Home / Self-Care Prescriptions Hydrocodone/Acetaminophen 5MG/325MG ([place] 5MG/325MG) Tab 1 TABLET PO Q6H Y for Pain, #14 TAB Prov: Fabian Price, DO 11/29/16 Referrals Joselito Harrington M.D. (PCP) Patient Instructions ED Fracture, Wrist (Infant/Toddler), ED Syncope Vasovagal, My [facility] Additional Instructions Follow-up with your already established orthopedic physician regarding your left foot metatarsal fracture. Problem Qualifiers Primary Impression: Syncope Syncope type: unspecified Qualified Codes: R55 - Syncope and collapse Additional Impressions: Closed head injury Encounter type: initial encounter Qualified Codes: S09.90XA - Unspecified injury of head, initial encounter Fracture of fifth metatarsal bone of left foot Encounter type: initial encounter Fracture type: closed
[2016-11-29 01:52] LABS: BASO % 0.2 %; BASO ABS # 0.03 K/uL (0-0.2); COMPLETE YES; EOS % 1.3 %; IG% 0.6 %; LYMPH % 15.5 %; LYMPH ABS # 2.19 K/uL (1.2-3.4); MEAN CELL VOLUME 85.3 fL (80-100); MEAN CORPUSCULAR HEMOGLOBIN 27.7 pg (25-34); MEAN CORPUSCULAR HGB CONC 32.5 g/dl (32-36); MEAN PLATELET VOLUME 9.8 fL (7.4-10.4); MONO % 6.2 %; NEUT % 76.2 %; PLATELET COUNT 296 K/uL (130-400); RED BLOOD COUNT 4.69 M/uL (4.2-5.4)
[2016-11-29 02:12] LABS: ALT/SGPT 25 U/L (12-78); AST/SGOT 22 U/L (15-37); BLOOD UREA NITROGEN 16 mg/dl (7-18); BUN/CREATININE RATIO 13.3 (10-20); CALCIUM 10.1 mg/dl (8.5-10.1); CARBON DIOXIDE 27 mmol/L (21-32); CHLORIDE 99 mmol/L (98-107); GLUCOSE 145 mg/dl (70-99); POTASSIUM 3.2 mmol/L (3.5-5.1); SODIUM 135 mmol/L (136-145)
[2016-11-29 02:14] LABS: ALKALINE PHOSPHATASE 100 U/L (45-117)
[2016-11-29] MEDS ORDERED: HYDROCODONE/ACETAMOPHEN 5/325MG TAB PO STA (02:19)
[2016-11-29] MEDS ORDERED: HYDR-5688 PO (02:25)
[2016-11-29] MEDS ORDERED: NORCO 5/325MG HOME PACK PO ONE (02:30)
[2016-11-29 02:54] VITALS: BP 107/64; PULSE 76; TEMP 36.6; O2SAT 98
--- NOTE | 2016-11-29 06:36 | DIAGNOSTIC IMAGING REPORT ---
CT OF THE CERVICAL SPINE CLINICAL HISTORY: Neck pain. Trauma. COMPARISON STUDY: 10/12/2015 CT DOSE: TECHNIQUE: CT scan of the cervical spine was performed from the skull base to the thoracic inlet. Images are reviewed in the axial, sagittal, and coronal planes. IV contrast was not administered for this examination. FINDINGS: The visualized portions of the lung apices reveal no evidence of pneumothorax. The prevertebral soft tissues are normal. No fractures or traumatic subluxations are visualized. There are multilevel degenerative changes, most pronounced at the C3 5-6 level. 2 mm of anterolisthesis of C4 and C5 is felt to be degenerative IMPRESSION: No evidence of acute fracture or traumatic subluxation. Electronically signed by: Shin Robbins M.D. 11/29/2016 6:35 AM Dictated Date/Time: 11/29/2016 6:33 AM
--- NOTE | 2016-11-29 07:09 | DIAGNOSTIC IMAGING REPORT ---
HEAD CT NONCONTRAST CT DOSE: 1099.61 mGy.cm HISTORY: Headache. TECHNIQUE: Multiaxial CT images of the head were performed without the use of intravenous contrast. Automated exposure control was utilized for this study. Comparison: None. Findings: The paranasal sinuses and mastoid air cells are clear. The calvarium and skull base are intact. The ventricles and sulci are within normal limits. There is no mass, hematoma, midline shift, or acute infarct. Mild left frontal scalp swelling. Impression: No acute intracranial abnormality. Electronically signed by: Roberto Harris M.D. 11/29/2016 7:08 AM Dictated Date/Time: 11/29/2016 7:06 AM
--- NOTE | 2016-11-29 07:16 | DIAGNOSTIC IMAGING REPORT ---
LEFT FOOT MIN 3 VIEWS ROUTINE CLINICAL HISTORY: Left foot pain status post trauma COMPARISON: None. DISCUSSION: The bones are osteopenic. There is a plantar calcaneal spur. There is a hallux valgus deformity and bunion deformity of the first metatarsal head. There is an oblique fracture involving the distal diaphysis of the fifth metatarsal. There is overlying soft tissue swelling. The distal fragment is medially displaced x 2.4 mm. IMPRESSION: Oblique fracture involving the distal diaphysis and neck of the fifth metatarsal Electronically signed by: Shin Robbins M.D. 11/29/2016 7:14 AM Dictated Date/Time: 11/29/2016 7:13 AM
== END 2016-11-29 02:54 | disposition home or self-care (01) ==
LOC: EDBD 00:29 → C.EDA 00:30
DX: S00.83XA Contusion of other part of head, initial encounter (principal); S92.352A Displaced fracture of fifth metatarsal bone, left foot, initial encounter for closed fracture; S00.512A Abrasion of oral cavity, initial encounter; W18.11XA Fall from or off toilet without subsequent striking against object, initial encounter; R55 Syncope and collapse; J45.909 Unspecified asthma, uncomplicated; K21.9 Gastro-esophageal reflux disease without esophagitis; E78.00 Pure hypercholesterolemia, unspecified; I10 Essential (primary) hypertension; E03.9 Hypothyroidism, unspecified; Z90.710 Acquired absence of both cervix and uterus; Z87.01 Personal history of pneumonia (recurrent); Z96.659 Presence of unspecified artificial knee joint; Z82.49 Family history of ischemic heart disease and other diseases of the circulatory system; Z79.899 Other long term (current) drug therapy

== ENCOUNTER → 2016-12-06 | Outpatient (CLI) | payer BC ==
--- NOTE | 2016-12-06 13:19 | DIAGNOSTIC IMAGING REPORT ---
LEFT FOOT MIN 3 VIEWS CLINICAL HISTORY: LEFT FOOT PAIN FIFTH METATARSAL FRACTURE. COMPARISON: 11/29/2016 DISCUSSION: There is been no change in the orientation of the oblique fracture involving the distal fifth metatarsal. There is 2.5 mm of maximal displacement. No definite callus formation is visualized. Again evident is a hallux valgus deformity. IMPRESSION: No change in the orientation of the oblique fracture involving the distal diaphysis and neck of the fifth metatarsal. Electronically signed by: Shin Robbins M.D. 12/06/2016 1:18 PM Dictated Date/Time: 12/06/2016 1:16 PM
== END | disposition home or self-care (01) ==
LOC: C.RDSM 13:57
PROVIDERS: ATTEND Physician Assistant
DX: S92.352D Displaced fracture of fifth metatarsal bone, left foot, subsequent encounter for fracture with routine healing (principal); X58.XXXD Exposure to other specified factors, subsequent encounter

== ENCOUNTER → 2016-12-28 | Outpatient (CLI) | payer BC ==
--- NOTE | 2016-12-28 15:36 | DIAGNOSTIC IMAGING REPORT ---
LEFT FOOT MIN 3 VIEWS CLINICAL HISTORY: Follow up left fifth metatarsal fracture. COMPARISON: Left foot radiographs December 06, 2016 and 03/01/2017. FINDINGS: Tarsometatarsal joints are intact. The oblique mildly displaced fracture within the mid to distal shaft of the left fifth metatarsal is unchanged exam of December 06, 2016. There is minimal callus formation. No additional fractures are identified. Mild degenerative changes are noted within multiple articulations. IMPRESSION: No change in alignment of the mildly displaced oblique fracture of the shaft of the left fifth metatarsal with minimal interval callus formation. Electronically signed by: Trung Milligan M.D. 12/28/2016 3:34 PM Dictated Date/Time: 12/28/2016 3:33 PM
== END | disposition home or self-care (01) ==
LOC: C.RDSM 07:00
PROVIDERS: ATTEND Physician Assistant
DX: S92.352A Displaced fracture of fifth metatarsal bone, left foot, initial encounter for closed fracture (principal); X58.XXXA Exposure to other specified factors, initial encounter

== ENCOUNTER → 2017-01-23 | Outpatient (CLI) | payer BC ==
--- NOTE | 2017-01-23 14:02 | DIAGNOSTIC IMAGING REPORT ---
LEFT FOOT MIN 3 VIEWS CLINICAL HISTORY: LEFT FRACTURE OF 5TH METATARSAL fracture COMPARISON: 12/28/2016 DISCUSSION: Oblique fracture fifth metatarsal. Slight interval decrease in prominence of the separation between fracture fragments. Bony alignment remains unchanged. Bunion deformity as well as hallux valgus configuration of the great toe persists. There is no evidence for soft tissue swelling. IMPRESSION: Oblique fracture fifth metatarsal showing slight interval healing compared to the prior exam. The above report was generated using voice recognition software. It may contain grammatical, syntax or spelling errors. Electronically signed by: Nicolas Sinclair M.D. 01/23/2017 2:01 PM Dictated Date/Time: 01/23/2017 2:00 PM
== END | disposition home or self-care (01) ==
LOC: C.RDSM 12:52
PROVIDERS: ATTEND Physician Assistant
DX: S92.352D Displaced fracture of fifth metatarsal bone, left foot, subsequent encounter for fracture with routine healing (principal); X58.XXXD Exposure to other specified factors, subsequent encounter

== ENCOUNTER → 2017-03-07 | Outpatient (CLI) | payer BC ==
--- NOTE | 2017-03-07 11:38 | DIAGNOSTIC IMAGING REPORT ---
LEFT FOOT MIN 3 VIEWS CLINICAL HISTORY: Left foot fracture. COMPARISON: Left foot radiograph November 29, 2016 and January 23, 2017. FINDINGS: Hallux valgus deformity is again noted. No acute fracture within the left foot is identified. Alignment of the tarsometatarsal joints is anatomic. There has been progressive partial healing of the oblique mildly displaced fracture within the mid to distal shaft of the left fifth metatarsal. No additional fractures are identified on this exam. Mild plantar calcaneal spurring is noted. There is mild arthritis with the left first metatarsophalangeal joint. IMPRESSION: No change in alignment of the mildly displaced left fifth metatarsal fracture with near complete interval healing. Electronically signed by: Trung Milligan M.D. 03/07/2017 11:37 AM Dictated Date/Time: 03/07/2017 11:35 AM
== END | disposition home or self-care (01) ==
LOC: C.RDSM 09:09
PROVIDERS: ATTEND Physician Assistant
DX: S92.352A Displaced fracture of fifth metatarsal bone, left foot, initial encounter for closed fracture (principal); X58.XXXA Exposure to other specified factors, initial encounter

== ENCOUNTER → 2017-04-06 | Day surgery (SDC) | payer BC ==
[~2017-04-06] VITALS: Ht 160 cm; Wt 90.0 kg
[~2017-04-06] MED LIST changes: +CEFAZOLIN 2000 MG/60 ML D5W IV SCH; +LACTATED RINGER'S 1000ML 1,000 ML IV SCH
[2017-04-06 08:17] VITALS: BP 165/92; PULSE 106; TEMP 36.6; O2SAT 94; Ht 160 cm; Wt 90.0 kg
--- NOTE | 2017-04-06 09:03 | Discharge Instructions ---
Discharge Instructions Date of Service Apr 06, 2017. Visit Reason for Visit: Syncope Discharge Discharge Diagnosis / Problem: Syncope Discharge Goals Goal(s): Diagnostic testing Activity Recommendations Activity Limitations: per Instructions/Follow-up section Lifting Limitations: none Exercise/Sports Limitations: none May Resume Sexual Activity: when tolerated Driving or Machine Use: no limitations Keep wound dry and Steri-Strips intact until follow-up next week. May remove the outer bulky dressing tomorrow morning Anesthesia . Post Anesthesia Instructions: If you have had General Anesthesia or IV Sedation: * Do not drive today. * Resume driving when surgeon permits. * Do not make important decisions or sign legal documents today. * Call surgeon for: 1. Temperature elevations greater than 101 degrees F. 2. Uncontrollable pain. 3. Excessive bleeding. 4. Persistent nausea and vomiting. 5. Medication intolerance (nausea, vomiting or rash). * For nausea and vomiting use only clear liquids such as: tea, soda, bouillon until nausea subsides, then gradually increase diet as tolerated. * If you have any concerns or questions, call your surgeon's office. If physician is unavailable and it is an emergency, call 911 or go to the nearest emergency room. . Instructions / Follow-Up Instructions / Follow-Up No showering until follow-up next week. Keep Steri-Strips and wound dry until that time. Follow-up in the cardiology clinic for nurse visit next week. Diet Recommendations Recommended Home Diet: resume previous diet Procedures Procedures Performed: Implantation of patient activated loop recorder Pending Studies Studies pending at discharge: no Medical Emergencies . Who to Call and When: Medical Emergencies: If at any time you feel your situation is an emergency, please call 911 immediately. . Non-Emergent Contact Non-Emergency issues call your: Stone Driller Helper Call Non-Emergent contact if: you have a fever, your pain is not controlled, wound has increased drainage, wound has increased redness, wound has increased pain, you have any medication questions . . "Provider Documentation" section prepared by Reuben Yeung. .
--- NOTE | 2017-04-06 09:06 | Procedure Note ---
Procedure Note Date of Service Apr 06, 2017. Procedure Note Procedure performed: Implantation of patient activated loop recorder Staff hydrogen power plant manager: Mika Yeung MD Indication: The patient is a 58-year-old woman with a history of recurrent syncope. Due to the infrequent nature of the events in the unclear etiology she was advised to consider implantation of patient activated loop recorder. Procedure in detail: The patient was informed of the risks benefits and alternatives to the intended procedure. She understood such which proceed. She was taken the cardiac catheterization suite. The upper chest area was prepped and draped in usual sterile fashion. An area left lateral to the sternum in the 4th intercostal space was subsequently anesthetized using subcutaneous administration of lidocaine solution. Small incision was made at this site and implantation of loop recorder was accomplished using a proprietary implantation tool. The resulting small incision was closed with 1 single 4 0 Vicryl suture. Steri- Strips and a sterile dressing was applied. The device was tested noninvasively prior to occlusion the procedure. The patient tolerated procedure well. There were no immediate complications. Equipment used: Patient activated loop recorder: Nurses' Association Counselor: [employer] model number L N Q 1 1 serial number [id number] Impression: Successful implantation of patient activated loop recorder
[2017-04-06 09:10] VITALS: BP 151/84; PULSE 85; TEMP 36.9; O2SAT 95
[2017-04-06 09:25] VITALS: BP 155/84; PULSE 81; O2SAT 94
[2017-04-06 09:40] VITALS: BP 154/91; PULSE 85; TEMP 36.9; O2SAT 97
== END | disposition home or self-care (01) ==
LOC: C.ACU 07:23
PROVIDERS: ATTEND Internal Medicine Cardiovascular Disease
DX: R55 Syncope and collapse (principal); I10 Essential (primary) hypertension; E78.5 Hyperlipidemia, unspecified; J45.909 Unspecified asthma, uncomplicated; D80.1 Nonfamilial hypogammaglobulinemia; K21.9 Gastro-esophageal reflux disease without esophagitis; E03.9 Hypothyroidism, unspecified; H81.10 Benign paroxysmal vertigo, unspecified ear; Z79.899 Other long term (current) drug therapy

== ENCOUNTER → 2017-04-24 | Outpatient (CLI) | payer BC ==
[~2017-04-24] MED LIST changes: -CEFAZOLIN 2000 MG/60 ML D5W IV SCH; -HYDR-5688 PO; -LACTATED RINGER'S 1000ML 1,000 ML IV SCH; -MULT-190 PO; -MULTTAB58 PO; -RANI300T2 PO; -VALS40TA2 PO; -VERA1TAB52 PO
== END | disposition home or self-care (01) ==
LOC: C.RDSM 11:18
PROVIDERS: ATTEND Physical Medicine & Rehabilitation Sports Medicine
DX: Z96.651 Presence of right artificial knee joint (principal); M25.561 Pain in right knee; M25.562 Pain in left knee

== ENCOUNTER → 2017-05-30 | Day surgery (SDC) | payer BC ==
[~2017-05-30] VITALS: Ht 160 cm; Wt 91.0 kg
[2017-05-30 12:22] VITALS: Ht 160 cm; Wt 91.0 kg
[2017-05-30 12:23] VITALS: BP 168/91; PULSE 98; TEMP 36.6; O2SAT 96
--- NOTE | 2017-05-30 14:29 | Procedure Note ---
Procedure Note Date of Service May 30, 2017. Procedure Note Procedure performed: Head-up tilt table testing Staff causticiser Mika Yeung MD Indication: The patient is a 58-year-old woman with a longstanding history of persistent dizziness and syncope. Based on some concerns regarding hypotension or orthostatic intolerance she was advised to consider tilt-table testing today Procedure in detail: The patient was informed of the risks benefits and alternatives to the intended procedure. She understood such which proceed. She is placed in a supine position on the tilt table. She was secured into place. Continues monitoring with blood pressure, pulse oximetry and telemetry within initiated. The patient was supine for 15 minutes prior to rising to an 80 degree angle. Symptoms and hemodynamics were monitored prior to returning the patient to the supine position. Symptoms and hemodynamics were allowed to return to normal prior to conclusion of the test. The patient tolerated procedure well. There were no immediate complications. Findings: Initial hemodynamics included a blood pressure of 120 over 90 with a pulse of 96 With head-up tilting the patient's pulse tristan to 106 beats per minute. There was an initial drop in blood pressure to 115/90. There was some variations in systolic blood pressures during tilt table testing but no hypotension. The pulse remained stable throughout the testing. Patient did have reproduction of her index symptoms which included dizziness and stomach discomfort This was not associated with any notable hemodynamic derangement Impression: No evidence of postural orthostatic tachycardia, no orthostatic intolerance, no cardioinhibitory or vasodepressor response Likely noncardiac etiology for symptoms of persistent dizziness and presyncope
== END | disposition home or self-care (01) ==
LOC: C.CATH 11:58
PROVIDERS: ATTEND Internal Medicine Clinical Cardiac Electrophysiology
DX: R55 Syncope and collapse (principal); J45.909 Unspecified asthma, uncomplicated; E78.5 Hyperlipidemia, unspecified; I10 Essential (primary) hypertension; E03.9 Hypothyroidism, unspecified; Z79.899 Other long term (current) drug therapy; Z88.1 Allergy status to other antibiotic agents; Z82.3 Family history of stroke; Z80.6 Family history of leukemia

== ENCOUNTER 2017-07-04 13:54 | Inpatient (IN) | payer BC, OTHER ==
[~2017-07-04] VITALS: Ht 160 cm; Wt 92.7 kg
[2017-07-04] MEDS ORDERED: FLR/1 PO (14:58)
[2017-07-04] MEDS ORDERED: DOXY100C76 PO (14:58)
[2017-07-04] MEDS ORDERED: ALBUTEROL 0.083% NEBU SOLN 3 ML VIAL INH STA ×2 (15:04→16:55)
[2017-07-04] MEDS ORDERED: ASPIRIN 324 MG CHEW PO STA (15:04)
[2017-07-04] MEDS ORDERED: SODIUM CHLORIDE 0.9% 1000ML 1,000 ML IV STA (15:04)
[2017-07-04 15:14] LABS: BASO % 0.2 %; BASO ABS # 0.03 K/uL (0-0.2); EOS % 0.9 %; EOS ABS # 0.16 K/uL (0-0.5); HEMATOCRIT 38.7 % (37-47); HEMOGLOBIN 12.7 g/dL (12.0-16.0); IG# 0.06 K/uL (0.00-0.02); LYMPH % 9.4 %; LYMPH ABS # 1.67 K/uL (1.2-3.4); MEAN CELL VOLUME 83.6 fL (80-100); MEAN CORPUSCULAR HEMOGLOBIN 27.4 pg (25-34); MEAN CORPUSCULAR HGB CONC 32.8 g/dl (32-36); MEAN PLATELET VOLUME 11.3 fL (7.4-10.4); MONO % 7.7 %; MONO ABS # 1.36 K/uL (0.11-0.59); NEUT % 81.5 %; NEUT ABS # 14.46 K/uL (1.4-6.5); PLATELET COUNT 292 K/uL (130-400); RED CELL DISTRIBUTION WIDTH CV 18.1 % (11.5-14.5); RED CELL DISTRIBUTION WIDTH SD 55.9 fL (36.4-46.3); WHITE BLOOD COUNT 17.74 K/uL (4.8-10.8)
[2017-07-04 15:19] LABS: PTT PATIENT 24.4 SECONDS (21.0-31.0)
--- NOTE | 2017-07-04 15:26 | DIAGNOSTIC IMAGING REPORT ---
CHEST ONE VIEW PORTABLE CLINICAL HISTORY: EVALUATE RESPIRATORY DISTRESS.DYSPNEA COMPARISON STUDY: Chest CT August 17, 2016 and chest radiograph November 16, 2016. FINDINGS: Electronic device projects over the left heart border. A left subclavian [id number] is unchanged in position. Linear left basilar opacity is suggestive of atelectasis. There is no consolidation to suggest pneumonia. There is no evidence of pulmonary edema. Cardiomediastinal silhouette is normal. IMPRESSION: 1. No acute cardiopulmonary findings. 2. Linear left basilar opacity suggestive of atelectasis. Electronically signed by: Trung Milligan M.D. 07/04/2017 3:25 PM Dictated Date/Time: 07/04/2017 3:23 PM
[2017-07-04 15:34] LABS: ALBUMIN 2.9 gm/dl (3.4-5.0); ALKALINE PHOSPHATASE 123 U/L (45-117); ALT/SGPT 25 U/L (12-78); AST/SGOT 24 U/L (15-37); BLOOD UREA NITROGEN 11 mg/dl (7-18); CALCIUM 10.1 mg/dl (8.5-10.1); CARBON DIOXIDE 24 mmol/L (21-32); CREATININE 0.99 mg/dl (0.60-1.20); GLUCOSE 121 mg/dl (70-99); SODIUM 136 mmol/L (136-145); TOTAL PROTEIN 7.2 gm/dl (6.4-8.2)
--- NOTE | 2017-07-04 16:11 | DIAGNOSTIC IMAGING REPORT ---
(CHEST FOR PE) ANGIO WITH CT DOSE: 473.85 mGy.cm HISTORY: Chest pain dyspnea TECHNIQUE: Multiaxial CT images of the chest were performed following the intravenous administration of contrast to evaluate the pulmonary arteries. Maximal intensity projection images were also obtained. A dose lowering technique was utilized adhering to the principles of ALARA. COMPARISON STUDY: None. FINDINGS: There is a normal caliber thoracic aorta with no evidence for dissection. There is no evidence for pulmonary embolus. No pleural effusions. No pneumothorax. The liver and spleen are unremarkable. No mediastinal or hilar lymphadenopathy. The central airways are patent. The lungs are clear. IMPRESSION: No evidence for pulmonary embolus. The above report was generated using voice recognition software. It may contain grammatical, syntax or spelling errors. Electronically signed by: Nicolas Sinclair M.D. 07/04/2017 4:10 PM Dictated Date/Time: 07/04/2017 4:08 PM
[2017-07-04] MEDS ORDERED: METHYLPREDNISOLONE IV 40 MG in SYRINGE 0 ML IV SCH (17:00)
[2017-07-04] MEDS ORDERED: METHYLPREDNISOLONE IV 40 MG in SYRINGE 0 ML IV ONE (17:30)
[2017-07-04 18:11] LABS: INFLUENZA B ANTIGEN Neg for Influ B (NEG)
[2017-07-04] MEDS ORDERED: ACETAMINOPHEN 325 MG TAB PO PRN (19:15)
[2017-07-04] MEDS ORDERED: ONDANSETRON INJ 2 MG/ML 2 ML VIAL IV PRN (19:15)
[2017-07-04] MEDS ORDERED: MAGNESIUM HYDROXIDE SUSP 30 ML UDC PO PRN (19:15)
[2017-07-04] MEDS ORDERED: ALBUTEROL HFA 8 GM INHALER INH PRN (19:15)
[2017-07-04] MEDS ORDERED: ALBUTEROL 0.083% NEBU SOLN 3 ML VIAL INH PRN (19:15)
[2017-07-04] MEDS ORDERED: TRIAMCINOLONE ACET NASAL SPRAY 10.8ML BTL NAE PRN (19:15)
[2017-07-04] MEDS ORDERED: POLYETHYLENE (MIRALAX) 17 GM PACK PO PRN (19:15)
[2017-07-04] MEDS ORDERED: ALUMINUM/MAGNESIUM/SIMETH (MAALOX MAX) 30 ML UDC PO PRN (19:15)
[2017-07-04] MEDS ORDERED: ZOLPIDEM TARTRATE 5 MG TAB PO PRN ×2 (19:15)
--- NOTE | 2017-07-04 20:28 | History and Physical ---
History & Physical Date & Time of Service: Jul 04, 2017 at 20:06 Chief Complaint: Weakness Primary Care Physician: Joselito Harrington M.D. History of Present Illness Source: patient, partner 66 y/o female with PMHx of Asthma, 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 5 days ago patient developed upper respiratory tract infection/sinusitis and posterior nasal discharge. She also has some productive cough with yellowish/ greenish mucus. Patient primary care physician started her on doxycycline. Patient slightly started to improve. As per patient yesterday her cough significantly better. Yesterday she felt dizzy and more short of breath. She walked to the couch and sat on the couch and passed out for a few minutes.. Patient is used for passing out. She is on Florinef for autonomic orthostatic hypotension. She was instructed by her primary care physician to lay Down and raise her legs if she ever passed out or felt like passing out Today she noticed increased shortness of breath. Her cough is still better but she started to have wheezing and possible bronchospastic. Arrival to the ED her O2 sat was 89%. Clinically improved on 2 L of O2 Patient feels that despite of improving her sinusitis and bronchitis, she developed what appears to be bronchospasm and COPD exacerbation Past Medical/Surgical History Medical Problems: (1) Asthma Status: Chronic (2) Breast Biopsy 2006 Status: Resolved (3) Chronic asthmatic bronchitis Status: Chronic (4) Gastroesophageal reflux disease Status: Chronic (5) GERD Status: Chronic (6) Hypercholesterolemia Status: Chronic (7) Hypertension Status: Chronic (8) Hypothyroidism Status: Chronic (9) Hysterectomy 1989 Status: Resolved (10) Knee Replacement Surgery Status: Resolved (11) Pneumonia Status: Chronic (12) Rhinitis Status: Chronic (13) Right Rotator Cuff Repair 2004 Status: Resolved (14) Seasonal Allergies Status: Chronic (15) Vaginal Repair 1999 Status: Resolved Family History Hypertension Lung disease Social History Smoking Status: Never Smoker Drug Use: none Marital Status: Occupational Status: retired Immunizations History of Influenza Vaccine: Unknown History of Tetanus Vaccine?: Yes History of Pneumococcal: Unknown History of Hepatitis B Vaccine: Unknown Multi-Drug Resistant Organisms History of MDRO: No Allergies Coded Allergies: Erythromycin (Verified Allergy, Severe, NAUSEA, DRY HEAVES, 07/04/17) Levofloxacin (Verified Allergy, Severe, Anaphylaxis, 07/04/17) POLLEN (Verified Allergy, Intermediate, SHORTNESS OF BREATH, 07/04/17) Aspirin (Verified Allergy, Unknown, HIVES, 07/04/17) Fluticasone (Verified Adverse Reaction, Unknown, DIZZINESS, 07/04/17) Home Medications Scheduled Cetirizine Hcl (Zyrtec), 10 MG PO QAM Doxycycline Monohydrate (Monodox), Unknown Dose PO BID Fiber Laxative (Fiber Laxative), 1 TAB PO BID Fish Oil ([place]-3), 1 CAPSULE PO BID Fludrocortisone Acetate (Florinef), 0.1 MG PO DAILY Fluticasone Prop/Salmeterol (Advair Diskus 500/50 60 Dose), 1 PUFF INH BID Lansoprazole (Prevacid), 30 MG PO HS Levothyroxine Sodium (Synthroid), 75 MCG PO Q2D Levothyroxine Sodium (Synthroid), 50 MCG PO Q2D Simvastatin (Zocor), 20 MG PO QPM Triamterene/Hctz (Triamterene/Hctz 37.5-25MG), 0.5 TAB PO QAM Scheduled PRN Albuterol Hfa (Ventolin Hfa), 2 PUFFS INH Q4H PRN for SOB/Wheezing Albuterol Sulf (Proventil 0.083% 2.5MG/3ML), 2.5 MG INH QID PRN for SOB/Wheezing Triamcinolone Acetonide (Nasal (Nasacort Allergy 24Hr), 2 SPRAYS YARIEL QAM PRN for . Review of Systems Constitutional: No fever, No chills, No sweats, No weight loss, No weakness, No fatigue, No problem reported Eyes: No worsening of vision, No eye pain, No redness, No discharge, No diplopia, No problem reported ENT: No hearing loss, No unusual epistaxis, No nasal symptoms, No sore throat, No tinnitus, No dental problems, No trouble swallowing, No problem reported Respiratory: + cough, + sputum, + shortness of breath, + dyspnea on exertion, + dyspnea at rest, No wheezing, No hemoptysis, No problem reported Cardiovascular: No chest pain, No orthopnea, No PND, No edema, No claudication , No palpitations, No problem reported Abdomen: No pain, No nausea, No vomiting, No diarrhea, No constipation, No GI bleeding, No problem reported Musculoskeletal: No joint pain, No muscle pain, No swelling, No calf pain, No problem reported Genitourinary - Female: No dysuria, No urinary frequency, No urinary urgency, No urinary incontinence, No urinary retention, No hematuria, No dysmenorrhea, No menorrhagia, No metrorrhagia, No rash, No vaginal bleeding, No vaginal discharge, No vaginal itching, No vulvodynia, No , No problem reported Neurologic: No memory loss, No paralysis, No weakness, No numbness/tingling, No vertigo, No balance problems, No problem reported Psychiatric: No depression symptoms, No anhedonism, No anxiety, No insomnia, No substance abuse, No problem reported Endocrine: No fatigue, No excessive thirst, No excessive urination, No problem reported Hematologic / Lymphatic: No abnormal bleeding/bruising, No clotting problems, No swollen lymph nodes, No night sweats, No problem reported Integumentary: No rash, No itch, No new/changing skin lesions, No color change , No bleeding, No problem reported Allergic / Immunologic: No environmental allergies, No seasonal allergies, No pet sensitivities, No food allergies, No hives, No frequent infections, No poor healing, No prolonged convalescence, No problem reported Physical Exam Vital Signs Date Time Temp Pulse Resp B/P (MAP) Pulse Ox O2 Delivery O2 Flow Rate FiO2 07/04/17 19:56 90 18 118/71 96 07/04/17 18:58 91 18 124/75 96 Nasal Cannula 2.0 07/04/17 18:24 100 07/04/17 17:43 91 18 125/80 96 Nasal Cannula 2.0 07/04/17 16:00 98 18 126/67 95 Nasal Cannula 2.0 07/04/17 14:39 94 Nasal Cannula 2.0 07/04/17 14:38 89 Room Air 07/04/17 14:29 99 07/04/17 14:07 92 Room Air 07/04/17 14:07 37.5 96 20 143/90 92 Room Air General Appearance: no apparent distress, + obese Head: normocephalic, atraumatic Eyes: normal inspection, EOMI ENT: normal ENT inspection, hearing grossly normal Neck: supple Respiratory/Chest: chest non-tender, + decreased breath sounds, + wheezing Cardiovascular: regular rate, rhythm, no edema, no gallop, no JVD, no murmur, normal peripheral pulses Abdomen/GI: normal bowel sounds, non tender, soft, no organomegaly, no pulsatile mass Back: normal inspection Extremities/Musculoskelatal: normal inspection, no pedal edema 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, no motor/sensory deficits, alert, normal mood/affect, normal reflexes, oriented x 3 Skin: normal color, warm/dry, no rash Diagnostics Laboratory Results Results Past 24 Hours Test 07/04/17 13:47 07/04/17 17:15 07/04/17 17:24 Range/Units White Blood Count 17.74 4.8-10.8 K/uL Red Blood Count 4.63 4.2-5.4 M/uL Hemoglobin 12.7 12.0-16.0 g/dL Hematocrit 38.7 37-47 % Mean Corpuscular Volume 83.6 80-100 fL Mean Corpuscular Hemoglobin 27.4 25-34 pg Mean Corpuscular Hemoglobin Concent 32.8 32-36 g/dl Platelet Count 292 130-400 K/uL Mean Platelet Volume 11.3 7.4-10.4 fL Neutrophils (%) (Auto) 81.5 % Lymphocytes (%) (Auto) 9.4 % Monocytes (%) (Auto) 7.7 % Eosinophils (%) (Auto) 0.9 % Basophils (%) (Auto) 0.2 % Neutrophils # (Auto) 14.46 1.4-6.5 K/uL Lymphocytes # (Auto) 1.67 1.2-3.4 K/uL Monocytes # (Auto) 1.36 0.11-0.59 K/uL Eosinophils # (Auto) 0.16 0-0.5 K/uL Basophils # (Auto) 0.03 0-0.2 K/uL RDW Standard Deviation 55.9 36.4-46.3 fL RDW Coefficient of Variation 18.1 11.5-14.5 % Immature Granulocyte % (Auto) 0.3 % Immature Granulocyte # (Auto) 0.06 0.00-0.02 K/uL Prothrombin Time 10.4 9.0-12.0 SECONDS Prothromb Time International Ratio 1.0 0.9-1.1 Activated Partial Thromboplast Time 24.4 21.0-31.0 SECONDS Partial Thromboplastin Ratio 0.9 Sodium Level 136 136-145 mmol/L Potassium Level 3.0 3.5-5.1 mmol/L Chloride Level 103 98-107 mmol/L Carbon Dioxide Level 24 21-32 mmol/L Anion Gap 9.0 3-11 mmol/L Blood Urea Nitrogen 11 7-18 mg/dl Creatinine 0.99 0.60-1.20 mg/dl Est Creatinine Clear Calc Drug Dose 58.2 ml/min Estimated GFR () 67.9 Estimated GFR (Non- 58.6 BUN/Creatinine Ratio 11.5 10-20 Random Glucose 121 70-99 mg/dl Calcium Level 10.1 8.5-10.1 mg/dl Total Bilirubin 0.7 0.2-1 mg/dl Aspartate Amino Transf (AST/SGOT) 24 15-37 U/L Alanine Aminotransferase (ALT/SGPT) 25 12-78 U/L Alkaline Phosphatase 123 45-117 U/L Troponin I < 0.015 0-0.045 ng/ml Pro-B-Type Natriuretic Peptide 42 0-900 pg/ml Total Protein 7.2 6.4-8.2 gm/dl Albumin 2.9 3.4-5.0 gm/dl Globulin 4.3 2.5-4.0 gm/dl Albumin/Globulin Ratio 0.7 0.9-2 Influenza Type A Antigen Neg for Influ A NEG Influenza Type B Antigen Neg for Influ B NEG Urine Color YELLOW Urine Appearance CLEAR CLEAR Urine pH 6.0 4.5-7.5 Urine Specific [place] 1.028 1.000-1.030 Urine Protein NEG NEG Urine Glucose (UA) NEG NEG Urine Ketones NEG NEG Urine Occult Blood NEG NEG Urine Nitrite NEG NEG Urine Bilirubin NEG NEG Urine Urobilinogen NEG NEG Urine Leukocyte Esterase TRACE NEG Urine WBC (Auto) 0-5 /hpf Urine RBC (Auto) 0-4 /hpf Urine Hyaline Casts (Auto) 0-5 /lpf Urine Epithelial Cells (Auto) 0-5 /lpf Urine Bacteria (Auto) NEG Urine RBC 0-4 0-4 /hpf Urine WBC 0 0-5 /hpf Urine Epithelial Cells 0-5 0-5 /lpf Urine Crystals NONE PRSENT Urine Calcium Oxalate Crystals PRESENT NONE PRSENT Urine Bacteria NEG NEG Impression Assessment and Plan 66 y/o female with PMHx of Asthma, 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 Presented with acute respiratory failure with hypoxemia likely secondary to bronchitis/bronchospasm and asthma exacerbation Patient also had syncope yesterday but she is used to having episodic syncope secondary to her autonomic orthostatic hypotension. 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 difficile Will add probiotic with antibiotic Continue home medications Continue supportive care Heparin for DVT prophylaxis If patient improved by tomorrow, consider discharge home on tapering dose of steroids VTE Prophylaxis VTE Risk Assessment Done? Y/N: Yes Risk Level: Moderate
--- NOTE | 2017-07-04 20:49 | NUR ---
Pt Alert and oriented. 2LNC. Oriented to room. [place] placed as well as Monitor. NSR on monitor. Pt has no complaints of pain. Code word and Fall paperwork signed in chart. Pt is in bed at this time. Call fitzgerald within reach. Will continue to monitor.
[2017-07-04] MEDS ORDERED: CEFTRIAXONE SOD INJ 1 GM in DEXTROSE 5% ADD-VANTAGE 50ML 50 ML IV SCH (21:00)
[2017-07-04] MEDS: ALBUT/IPRATROP 3MG/0.5MG NEB 3 ML VIAL INH SCH (21:31)
[2017-07-04 21:34] VITALS: PULSE 80; O2SAT 97
[2017-07-04] MEDS: DOXYCYCLINE HYCLATE 100 MG CAP PO SCH (21:40)
[2017-07-04] MEDS: SIMVASTATIN 20 MG TAB PO SCH (21:40)
[2017-07-04] MEDS ORDERED: LACTOBACILLUS ACIDOPHILUS (FLORANEX) TAB PO ONE (21:41)
[2017-07-04] MEDS: SODIUM CHLORIDE 0.9% 1000ML 1,000 ML IV SCH (21:43)
[2017-07-04] MEDS: FLUTICASONE/SALMETEROL (ADVAIR) 500/50 INH 14 PUFF INH SCH (21:44)
[2017-07-04] MEDS: HEPARIN SOD 5000 UNIT/0.5 ML CARP SQ SCH (21:59)
[2017-07-04 22:19] VITALS: BP 118/71; PULSE 106; TEMP 37.5; Ht 160 cm; Wt 92.7 kg
[2017-07-04 22:20] VITALS: O2SAT 96
--- NOTE | 2017-07-04 23:10 | EMERGENCY ROOM VISIT NOTE ---
History Report prepared by Binta: Vika Prado Under the Supervision of: Dr. Sg Matos D.O. First contact with patient: 14:52 Chief Complaint: WEAKNESS Stated Complaint: WEAKNESS Nursing Triage Summary: Patient arrived via ems from home with initial complaints of "breathing difficulty." HX: asthma, immunocomprimised, gets treatments at cancer center, has autonomic disorder. 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 Feeling weak lately. History of Present Illness The patient is a 66 year old female who presents to the Emergency Room with complaints of worsening weakness starting last night. The patient complains of a productive cough, nausea, loss of appetite, constipation, diarrhea, abdominal pain, and chest tightness. She notes that the chest pain is similar to an asthma attack and is better with oxygen. The patient denies leg swelling, numbness, recent weight gain, a history of CHF, a history of diabetes, and history of coronary artery disease. She notes that she does not normally wear Oxygen. She notes that she has not taken any of her medication today. The patient notes a history of high cholesterol, DVTs, PEs, autonomic syncope disorder, and asthma. The patient notes that her last episode of syncope was last night while lying on the couch. She denies being on a blood thinner. Source of History: patient Onset: last night Position: other (global) Quality: other (global) Timing: worsening Associated Symptoms: + cough, + chest pain, + nausea, + abdominal pain, + diarrhea, No numbness Note: The patient complains of loss of appetite and constipation. The patient denies recent weight gain and leg swelling. Review of Systems See HPI for pertinent positives & negatives. A total of 10 systems reviewed and were otherwise negative. Past Medical & Surgical Medical Problems: (1) Asthma (2) Breast Biopsy 2006 (3) Chronic asthmatic bronchitis (4) Gastroesophageal reflux disease (5) GERD (6) Hx of deep venous thrombosis (7) Hx pulmonary embolism (8) Hypercholesterolemia (9) Hyperlipidemia (10) Hypertension (11) Hypothyroidism (12) Hysterectomy 1989 (13) Knee Replacement Surgery (14) Pneumonia (15) Respiratory failure with hypoxia (16) Rhinitis (17) Right Rotator Cuff Repair 2004 (18) Seasonal Allergies (19) Vaginal Repair 1999 Family History Hypertension Lung disease Social History Smoking Status: Never Smoker Alcohol Use: occasionally Drug Use: none Marital Status: Housing Status: lives with family Occupation Status: retired Current/Historical Medications Scheduled Cetirizine Hcl (Zyrtec), 10 MG PO QAM Doxycycline Monohydrate (Monodox), Unknown Dose PO BID Fiber Laxative (Fiber Laxative), 1 TAB PO BID Fish Oil ([place]-3), 1 CAPSULE PO BID Fludrocortisone Acetate (Florinef), 0.1 MG PO DAILY Fluticasone Prop/Salmeterol (Advair Diskus 500/50 60 Dose), 1 PUFF INH BID Lansoprazole (Prevacid), 30 MG PO HS Levothyroxine Sodium (Synthroid), 75 MCG PO Q2D Levothyroxine Sodium (Synthroid), 50 MCG PO Q2D Simvastatin (Zocor), 20 MG PO QPM Triamterene/Hctz (Triamterene/Hctz 37.5-25MG), 0.5 TAB PO QAM Scheduled PRN Albuterol Hfa (Ventolin Hfa), 2 PUFFS INH Q4H PRN for SOB/Wheezing Albuterol Sulf (Proventil 0.083% 2.5MG/3ML), 2.5 MG INH QID PRN for SOB/Wheezing Triamcinolone Acetonide (Nasal (Nasacort Allergy 24Hr), 2 SPRAYS YARIEL QAM PRN for . Allergies Coded Allergies: Erythromycin (Verified Allergy, Severe, NAUSEA, DRY HEAVES, 07/04/17) Levofloxacin (Verified Allergy, Severe, Anaphylaxis, 07/04/17) POLLEN (Verified Allergy, Intermediate, SHORTNESS OF BREATH, 07/04/17) Aspirin (Verified Allergy, Unknown, HIVES, 07/04/17) Fluticasone (Verified Adverse Reaction, Unknown, DIZZINESS, 07/04/17) Physical Exam Vital Signs Date Time Temp Pulse Resp B/P (MAP) Pulse Ox O2 Delivery O2 Flow Rate FiO2 07/04/17 18:58 91 18 124/75 96 Nasal Cannula 2.0 07/04/17 18:24 100 07/04/17 17:43 91 18 125/80 96 Nasal Cannula 2.0 07/04/17 16:00 98 18 126/67 95 Nasal Cannula 2.0 07/04/17 14:39 94 Nasal Cannula 2.0 07/04/17 14:38 89 Room Air 07/04/17 14:29 99 07/04/17 14:07 92 Room Air 07/04/17 14:07 37.5 96 20 143/90 92 Room Air Physical Exam GENERAL: Sitting up in bed, hypoxic, on nasal canula, alert, well nourished, no distress, non-toxic EYE EXAM: normal conjunctiva. OROPHARYNX: no exudate, no erythema, lips, buccal mucosa, and tongue normal and mucous membranes are moist NECK: supple, no nuchal rigidity, no adenopathy, non-tender LUNGS: Clear to auscultation. Normal chest wall mechanics HEART: no murmurs, S1 normal and S2 normal ABDOMEN: abdomen soft, non-tender, normo-active bowel sounds, no masses, no rebound or guarding. BACK: Back is symmetrical on inspection and there is no deformity, no midline tenderness, no CVA tenderness. SKIN: no rashes and no bruising UPPER EXTREMITIES: upper extremities are grossly normal. LOWER EXTREMITIES: No pitting edema. Calves are equal bilaterally. NEURO EXAM: Normal sensorium, cranial nerves II-XII grossly intact, normal speech, no gross weakness of arms, no gross weakness of legs. Medical Decision & Procedures ER Provider Diagnostic Interpretation: Radiology results as stated below per my review and the radiologist's interpretation: CHEST ONE VIEW PORTABLE CLINICAL HISTORY: EVALUATE RESPIRATORY DISTRESS.DYSPNEA COMPARISON STUDY: Chest CT August 17, 2016 and chest radiograph November 16, 2016. FINDINGS: Electronic device projects over the left heart border. A left subclavian [id number] is unchanged in position. Linear left basilar opacity is suggestive of atelectasis. There is no consolidation to suggest pneumonia. There is no evidence of pulmonary edema. Cardiomediastinal silhouette is normal. IMPRESSION: 1. No acute cardiopulmonary findings. 2. Linear left basilar opacity suggestive of atelectasis. Electronically signed by: Trung Milligan M.D. 07/04/2017 3:25 PM Dictated Date/Time: 07/04/2017 3:23 PM (CHEST FOR PE) ANGIO WITH CT DOSE: 473.85 mGy.cm HISTORY: Chest pain dyspnea TECHNIQUE: Multiaxial CT images of the chest were performed following the intravenous administration of contrast to evaluate the pulmonary arteries. Maximal intensity projection images were also obtained. A dose lowering technique was utilized adhering to the principles of ALARA. COMPARISON STUDY: None. FINDINGS: There is a normal caliber thoracic aorta with no evidence for dissection. There is no evidence for pulmonary embolus. No pleural effusions. No pneumothorax. The liver and spleen are unremarkable. No mediastinal or hilar lymphadenopathy. The central airways are patent. The lungs are clear. IMPRESSION: No evidence for pulmonary embolus. The above report was generated using voice recognition software. It may contain grammatical, syntax or spelling errors. Electronically signed by: Nicolas Sinclair M.D. 07/04/2017 4:10 PM Dictated Date/Time: 07/04/2017 4:08 PM Laboratory Results 07/04/17 13:47 Red Blood Count 4.63, Mean Corpuscular Volume 83.6, Mean Corpuscular Hemoglobin 27.4, Mean Corpuscular Hemoglobin Concent 32.8, Mean Platelet Volume 11.3, Neutrophils (%) (Auto) 81.5, Lymphocytes (%) (Auto) 9.4, Monocytes (%) (Auto) 7.7, Eosinophils (%) (Auto) 0.9, Basophils (%) (Auto) 0.2, Neutrophils # (Auto) 14.46, Lymphocytes # (Auto) 1.67, Monocytes # (Auto) 1.36, Eosinophils # (Auto) 0.16, Basophils # (Auto) 0.03 07/04/17 13:47 Test 07/04/17 13:47 07/04/17 17:15 07/04/17 17:24 White Blood Count 17.74 K/uL (4.8-10.8) Red Blood Count 4.63 M/uL (4.2-5.4) Hemoglobin 12.7 g/dL (12.0-16.0) Hematocrit 38.7 % (37-47) Mean Corpuscular Volume 83.6 fL (80-100) Mean Corpuscular Hemoglobin 27.4 pg (25-34) Mean Corpuscular Hemoglobin Concent 32.8 g/dl (32-36) Platelet Count 292 K/uL (130-400) Mean Platelet Volume 11.3 fL (7.4-10.4) Neutrophils (%) (Auto) 81.5 % Lymphocytes (%) (Auto) 9.4 % Monocytes (%) (Auto) 7.7 % Eosinophils (%) (Auto) 0.9 % Basophils (%) (Auto) 0.2 % Neutrophils # (Auto) 14.46 K/uL (1.4-6.5) Lymphocytes # (Auto) 1.67 K/uL (1.2-3.4) Monocytes # (Auto) 1.36 K/uL (0.11-0.59) Eosinophils # (Auto) 0.16 K/uL (0-0.5) Basophils # (Auto) 0.03 K/uL (0-0.2) RDW Standard Deviation 55.9 fL (36.4-46.3) RDW Coefficient of Variation 18.1 % (11.5-14.5) Immature Granulocyte % (Auto) 0.3 % Immature Granulocyte # (Auto) 0.06 K/uL (0.00-0.02) Prothrombin Time 10.4 SECONDS (9.0-12.0) Prothromb Time International Ratio 1.0 (0.9-1.1) Activated Partial Thromboplast Time 24.4 SECONDS (21.0-31.0) Partial Thromboplastin Ratio 0.9 Anion Gap 9.0 mmol/L (3-11) Est Creatinine Clear Calc Drug Dose 58.2 ml/min Estimated GFR () 67.9 Estimated GFR (Non- 58.6 BUN/Creatinine Ratio 11.5 (10-20) Calcium Level 10.1 mg/dl (8.5-10.1) Total Bilirubin 0.7 mg/dl (0.2-1) Aspartate Amino Transf (AST/SGOT) 24 U/L (15-37) Alanine Aminotransferase (ALT/SGPT) 25 U/L (12-78) Alkaline Phosphatase 123 U/L (45-117) Troponin I < 0.015 ng/ml (0-0.045) Pro-B-Type Natriuretic Peptide 42 pg/ml (0-900) Total Protein 7.2 gm/dl (6.4-8.2) Albumin 2.9 gm/dl (3.4-5.0) Globulin 4.3 gm/dl (2.5-4.0) Albumin/Globulin Ratio 0.7 (0.9-2) Influenza Type A Antigen Neg for Influ A (NEG) Influenza Type B Antigen Neg for Influ B (NEG) Urine Color YELLOW Urine Appearance CLEAR (CLEAR) Urine pH 6.0 (4.5-7.5) Urine Specific [place] 1.028 (1.000-1.030) Urine Protein NEG (NEG) Urine Glucose (UA) NEG (NEG) Urine Ketones NEG (NEG) Urine Occult Blood NEG (NEG) Urine Nitrite NEG (NEG) Urine Bilirubin NEG (NEG) Urine Urobilinogen NEG (NEG) Urine Leukocyte Esterase TRACE (NEG) Urine WBC (Auto) /hpf (0-5) Urine RBC (Auto) /hpf (0-4) Urine Hyaline Casts (Auto) /lpf (0-5) Urine Epithelial Cells (Auto) /lpf (0-5) Urine Bacteria (Auto) (NEG) Urine RBC 0-4 /hpf (0-4) Urine WBC 0 /hpf (0-5) Urine Epithelial Cells 0-5 /lpf (0-5) Urine Crystals (NONE PRSENT) Urine Calcium Oxalate Crystals PRESENT (NONE PRSENT) Urine Bacteria NEG (NEG) Laboratory results per my review. Medications Administered Medications (Trade) Dose Ordered Sig/Ross Route Start Time Stop Time Status Last Admin Dose Admin Sodium Chloride 1,000 ml @ 999 mls/hr Q1H1M STAT IV 07/04/17 15:04 07/04/17 16:04 DC 07/04/17 15:31 999 MLS/HR Albuterol Sulfate (Ventolin 0.083% 2.5MG/3ML Neb) 2.5 mg NOW STAT INH 07/04/17 15:04 07/04/17 15:06 DC 07/04/17 15:31 2.5 MG Albuterol Sulfate (Ventolin 0.083% 2.5MG/3ML Neb) 2.5 mg NOW STAT INH 07/04/17 16:55 07/04/17 16:57 DC 07/04/17 17:07 2.5 MG Methylprednisolone Sodium Succinate 40 mg/Syringe 0.64 ml @ 1.5 mls/min ONE ONCE IV 07/04/17 17:30 07/04/17 17:31 DC 07/04/17 17:28 1.5 MLS/MIN ECG Indication: weakness Rate (beats per minute): 97 Rhythm: sinus rhythm Findings: no acute ischemic change, no ectopy, other (normal axis) ED Course ED COURSE: Vital signs were reviewed and showed hypoxic vital signs. The patients medical record was reviewed The above diagnostic studies were performed and reviewed. ED treatments and interventions as stated above. 1457: The patient was evaluated in room A11A. A complete history and physical examination was performed. 1504: Ordered Aspirin 324 mg PO, Albuterol Sulfate 2.5 mg INH, NSS 1000 ml @ 999 mls/hr IV. 1654: Upon reevaluation, the patient is resting comfortably.I discussed my findings with the patient and she understands and agrees with the treatment plan. 1655: Ordered Albuterol Sulfate 2.5 mg INH. 1724: I reviewed the patient's case with Dr. Hussein. He will evaluate the patient for further management. 1730: Ordered Methylprednisolone Sodium Succinate 40 mg/Syringe 0.64 ml @ 1.5 mls/min IV. Based on the patients age, coexisting illnesses, exam and lab findings the decision to treat as an inpatient was made. The patient remained stable while under my care. The patient will be evaluated for further management. Medical Decision Differential diagnoses includes but is not limited to pneumonia, bronchitis, COPD/Asthma exacerbation, pneumothorax, pulmonary embolism, congestive heart failure, acute coronary syndrome Patient is a 66-year-old female who presents to ER for shortness of breath. Upon valuation she sound be hypoxic in the high 80s to low 90s resting. Patient does have a history of asthma. She did note some abdominal pain yesterday but that has resolved. She did pass out last night as well. She does have a history of autonomic dysfunction. She is on blood thinners. CT PE was performed was unremarkable. Labs show a leukocytosis of 17,000. BMP shows mild hypokalemia at 3. LFTs or bilirubin, troponin were all unremarkable. BNP was normal. Influenza A and B were negative. Based on her symptoms and hypoxia she was treated with steroids and neb treatments. She did feel slightly better. She was still hypoxic with rest. Based on the symptoms she was admitted to internal medicine for further workup. Medication Reconcilliation Current Medication List: was personally reviewed by me Blood Pressure Screening Patient's blood pressure: Normal blood pressure Blood pressure disposition: Did not require urgent referral Consults Time Called: 1701 Consulting Physician: Dr. Hussein- [facility] [place] Call: [id number] I reviewed the patient's case with Dr. Hussein. He will evaluate the patient for further management. Impression Primary Impression: Hypoxia Additional Impressions: Syncope Asthma exacerbation Scribe Attestation The scribe's documentation has been prepared under my direction and personally reviewed by me in its entirety. I confirm that the note above accurately reflects all work, treatment, procedures, and medical decision making performed by me. Departure Information Dispostion Being Evaluated By Hospitalist Referrals Joselito Harrington M.D. (PCP) Patient Instructions My [facility] Problem Qualifiers Additional Impressions: Syncope Syncope type: unspecified Qualified Codes: R55 - Syncope and collapse Asthma exacerbation Asthma severity: unspecified severity Asthma persistence: unspecified Qualified Codes: J45.901 - Unspecified asthma with (acute) exacerbation
[2017-07-05] VITALS (11 sets, daily range): BP systolic 127–157; BP diastolic 66–90; PULSE 90–120; TEMP 36.4–37; O2SAT 91–98
--- NOTE | 2017-07-05 00:01 | NUR ---
Pt in bed, alert and oriented. No complaints at this time. Assessment complete, for details, see EMR. ST present on cardiac strip. Call fitzgerald within reach, encouraged to ring for assistance. Will continue to monitor.
[2017-07-05] MEDS: METHYLPREDNISOLONE IV 40 MG in SYRINGE 0 ML IV SCH ×3 (02:31→19:58)
--- NOTE | 2017-07-05 04:00 | NUR ---
Pt in bed, resting with eyes closed. Responds to verbal stimuli, alert and oriented. No complaints. Call fitzgerald within reach, will continue to monitor.
[2017-07-05] MEDS: HEPARIN SOD 5000 UNIT/0.5 ML CARP SQ SCH ×3 (06:24→20:02)
[2017-07-05] MEDS ORDERED: LEVOTHYROXINE 50 MCG TAB PO SCH (06:30)
[2017-07-05 06:44] LABS: HEMATOCRIT 35.8 % (37-47); HEMOGLOBIN 11.8 g/dL (12.0-16.0); IG# 0.04 K/uL (0.00-0.02); LYMPH % 7.9 %; LYMPH ABS # 0.84 K/uL (1.2-3.4); MEAN CELL VOLUME 84.4 fL (80-100); MEAN CORPUSCULAR HEMOGLOBIN 27.8 pg (25-34); MEAN PLATELET VOLUME 11.2 fL (7.4-10.4); MONO % 0.7 %; MONO ABS # 0.08 K/uL (0.11-0.59); NEUT ABS # 9.72 K/uL (1.4-6.5); PLATELET COUNT 279 K/uL (130-400); RED CELL DISTRIBUTION WIDTH CV 18.2 % (11.5-14.5); RED CELL DISTRIBUTION WIDTH SD 56.6 fL (36.4-46.3); WHITE BLOOD COUNT 10.68 K/uL (4.8-10.8)
[2017-07-05 07:18] LABS: ALBUMIN 2.7 gm/dl (3.4-5.0); CALCIUM 10.5 mg/dl (8.5-10.1); CREATININE 1.19 mg/dl (0.60-1.20); POTASSIUM 3.4 mmol/L (3.5-5.1)
[2017-07-05 07:20] LABS: PHOSPHORUS 1.7 mg/dl (2.5-4.9)
[2017-07-05] MEDS: ALBUT/IPRATROP 3MG/0.5MG NEB 3 ML VIAL INH SCH ×4 (07:55→19:41)
--- NOTE | 2017-07-05 08:45 | NUR ---
Pt ambulating in room. Voiding in toilet, ate breakfast. Took pills ok with water. Refusing to wear SCDs.
[2017-07-05] MEDS ORDERED: TRIAMTERENE/HCTZ 37.5/25MG TAB PO SCH (09:00)
[2017-07-05] MEDS ORDERED: POT PHOSPHATE MONOBASIC W/ SOD TAB PO SCH (09:00)
[2017-07-05] MEDS: FLUTICASONE/SALMETEROL (ADVAIR) 500/50 INH 14 PUFF INH SCH ×2 (09:23→19:59)
[2017-07-05] MEDS: DOXYCYCLINE HYCLATE 100 MG CAP PO SCH (09:24)
[2017-07-05] MEDS: FLUDROCORTISONE ACETATE 0.1 MG TAB PO SCH (09:24)
[2017-07-05] MEDS: LACTOBACILLUS ACIDOPHILUS (FLORANEX) TAB PO SCH ×3 (09:26→18:23)
[2017-07-05] MEDS: CETIRIZINE HCL 10 MG TAB PO SCH (09:27)
[2017-07-05] MEDS: SODIUM CHLORIDE 0.9% 1000ML 1,000 ML IV SCH (09:42)
[2017-07-05] MEDS ORDERED: POTASSIUM CHLORIDE 10 MEQ TABCR PO STA (09:44)
--- NOTE | 2017-07-05 12:00 | NUR ---
Release signed for info for loop recorder. Solumedrol decreased. Flu swab negative. IVF discontinued.
--- NOTE | 2017-07-05 12:23 | Hospitalist Progress Note ---
Hospitalist Progress Note Date of Service Jul 05, 2017. (Stefani Mendez ., PA-C) Subjective Pt evaluation today including: conversation w/ patient, physical exam, lab review, review of studies, review of inpatient medication list Voiding: no voiding problems Patient states she is feeling well this AM. Notes she had a restlessness night due to IV Steroids (not uncommon for her)- decrease today. Syncope event she thinks is likely due to dehydration/not eating. She notes she had upset stomach a few days ago, which led to poor PO intake. Eating and drinking OK now. +diarrhea yesterday- resolved. Patient notes she gets diarrhea once a month, then has diarrhea for a day or two. Doxycycline was started on 06/29 by PCP for sinusitis/bronchitis- will switch to PO Augmentin today. Currently on RA. No SOB. +cough- with small amounts of sputum production- sometimes yellow/green. Patient denies any fever, chills, sweats, lightheadedness, dizziness, vision changes, CP, palpitations, edema, SOB, wheezing, abdominal pain, nausea, vomiting, diarrhea, urinary symptoms, melena, numbness/tingling, weakness, muscle/joint pain, anxiety/depression, active bleeding, or new skin discoloration/changes. (Stefani Mendez ., PA-C) Medications Current Inpatient Medications Medications (Trade) Dose Ordered Sig/Ross Route Start Time Stop Time Status Last Admin Dose Admin Albuterol (Ventolin Hfa Inhaler) 2 puffs Q4H PRN INH 07/04/17 19:15 08/03/17 19:14 Albuterol Sulfate (Ventolin 0.083% 2.5MG/3ML Neb) 2.5 mg QID PRN INH 07/04/17 19:15 08/03/17 19:14 Cetirizine HCl (zyrTEC TAB) 10 mg QAM PO 07/05/17 09:00 08/04/17 08:59 07/05/17 09:27 10 MG Doxycycline Hyclate (Vibramycin Cap) 100 mg BID PO 07/04/17 21:00 07/06/17 21:00 07/05/17 09:24 100 MG Fludrocortisone Acetate (Florinef Tab) 0.1 mg DAILY PO 07/05/17 09:00 08/04/17 08:59 07/05/17 09:24 0.1 MG Salmeterol Xinafoate/ Fluticasone (Advair Diskus 500/50 Inh) 1 puff BID INH 07/04/17 21:00 08/03/17 20:59 07/05/17 09:23 1 PUFF Levothyroxine Sodium (Synthroid Tab) 50 mcg Q2D@0630 PO 07/05/17 06:30 08/04/17 06:29 07/05/17 06:23 50 MCG Levothyroxine Sodium (Synthroid Tab) 75 mcg Q2D@0630 PO 07/06/17 06:30 08/05/17 06:29 Simvastatin (Zocor Tab) 20 mg QPM PO 07/04/17 21:00 08/03/17 20:59 07/04/17 21:40 20 MG Triamcinolone Acetonide (Nasacort Allergy 24hr) 2 sprays QAM PRN YARIEL 07/04/17 19:15 08/03/17 19:14 Triamterene/HCTZ (Maxzide 37.5/25 Tab) 0.5 tab QAM PO 07/05/17 09:00 08/04/17 08:59 07/05/17 09:24 0.5 TAB Heparin Sodium (Porcine) (Heparin Sq 5000 Unit/0.5ml) 5,000 unit Q8 SQ 07/04/17 22:00 08/03/17 21:59 07/05/17 06:24 5,000 UNIT Sodium Chloride 1,000 ml @ 75 mls/hr [id number] IV 07/04/17 20:45 08/03/17 20:44 07/05/17 09:42 75 MLS/HR Acetaminophen (Tylenol Tab) 650 mg Q4H PRN PO 07/04/17 19:15 08/03/17 19:14 Al Hydrox/Mg Hydrox/Simethicone (Maalox Max Susp) 15 ml Q4H PRN PO 07/04/17 19:15 08/03/17 19:14 Magnesium Hydroxide (Milk Of Magnesia Susp) 30 ml Q12H PRN PO 07/04/17 19:15 08/03/17 19:14 Zolpidem Tartrate (Ambien Tab) 5 mg HSZ PRN PO 07/04/17 19:15 08/03/17 19:14 Ondansetron HCl (Zofran Inj) 4 mg Q6H PRN IV 07/04/17 19:15 08/03/17 19:14 Polyethylene (Miralax Powder Packet) 17 gm DAILY PRN PO 07/04/17 19:15 08/03/17 19:14 Lactobacillus Acidophilus (Floranex Tab) 4 tab TIDM PO 07/05/17 07:30 08/04/17 07:59 07/05/17 09:26 4 TAB Albuterol/ Ipratropium (Duoneb) 3 ml QIDR INH 07/04/17 20:00 08/03/17 19:59 07/05/17 11:35 3 ML Methylprednisolone Sodium Succinate 40 mg/Syringe 0.64 ml @ 1.5 mls/min Q8H IV 07/05/17 02:00 08/04/17 01:59 07/05/17 09:28 1.5 MLS/MIN Ceftriaxone Sodium 1 gm/ Dextrose 50 ml @ 100 mls/hr Q24H IV 07/04/17 21:00 07/11/17 20:59 07/04/17 21:43 100 MLS/HR Potassium/ Phosphorus/Sodium (Phospha 250 Neutral 155-852-130 Mg) 2 tab QID PO 07/05/17 09:00 08/04/17 08:59 07/05/17 09:38 2 TAB (Stefani Mendez, LILY) Objective Vital Signs Date Time Temp Pulse Resp B/P (MAP) Pulse Ox O2 Delivery O2 Flow Rate FiO2 07/05/17 11:36 113 16 97 Room Air 07/05/17 08:09 36.8 94 18 157/90 (112) 96 07/05/17 08:00 Room Air 07/05/17 07:14 105 16 98 Nasal Cannula 2.0 07/05/17 04:45 36.4 102 18 149/81 (103) 96 Nasal Cannula 2.0 07/05/17 04:00 Nasal Cannula 3.0 07/05/17 00:18 36.4 103 20 147/88 (107) 95 Nasal Cannula 2.0 07/04/17 23:59 Nasal Cannula 3.0 07/04/17 22:20 96 Nasal Cannula 3.0 07/04/17 22:19 37.5 106 16 118/71 07/04/17 21:34 80 16 97 Nasal Cannula 4.0 07/04/17 19:56 90 18 118/71 96 07/04/17 18:58 91 18 124/75 96 Nasal Cannula 2.0 07/04/17 18:24 100 07/04/17 17:43 91 18 125/80 96 Nasal Cannula 2.0 07/04/17 16:00 98 18 126/67 95 Nasal Cannula 2.0 07/04/17 14:39 94 Nasal Cannula 2.0 07/04/17 14:38 89 Room Air 07/04/17 14:29 99 07/04/17 14:07 92 Room Air 07/04/17 14:07 37.5 96 20 143/90 92 Room Air (Stefani Mendez, RSOHANC) Physical Exam General Appearance: no apparent distress, + obese Eyes: normal inspection, PERRL ENT: hearing grossly normal Neck: supple Respiratory/Chest: lungs clear, no respiratory distress, no accessory muscle use, + decreased breath sounds (throughout all lung vanessa ) Cardiovascular: + tachycardia (mild- regular rhythm ) Abdomen: normal bowel sounds, non tender, soft Extremities: no pedal edema, no calf tenderness Neurologic/Psychiatric: alert, normal mood/affect, oriented x 3 Skin: normal color, warm/dry, no rash (Stefani Mendez, ROSHANC) Laboratory Results Last 24 Hours Test 07/04/17 13:47 07/04/17 17:15 07/04/17 17:24 07/05/17 06:16 White Blood Count 17.74 K/uL 10.68 K/uL Red Blood Count 4.63 M/uL 4.24 M/uL Hemoglobin 12.7 g/dL 11.8 g/dL Hematocrit 38.7 % 35.8 % Mean Corpuscular Volume 83.6 fL 84.4 fL Mean Corpuscular Hemoglobin 27.4 pg 27.8 pg Mean Corpuscular Hemoglobin Concent 32.8 g/dl 33.0 g/dl Platelet Count 292 K/uL 279 K/uL Mean Platelet Volume 11.3 fL 11.2 fL Neutrophils (%) (Auto) 81.5 % 91.0 % Lymphocytes (%) (Auto) 9.4 % 7.9 % Monocytes (%) (Auto) 7.7 % 0.7 % Eosinophils (%) (Auto) 0.9 % 0.0 % Basophils (%) (Auto) 0.2 % 0.0 % Neutrophils # (Auto) 14.46 K/uL 9.72 K/uL Lymphocytes # (Auto) 1.67 K/uL 0.84 K/uL Monocytes # (Auto) 1.36 K/uL 0.08 K/uL Eosinophils # (Auto) 0.16 K/uL 0.00 K/uL Basophils # (Auto) 0.03 K/uL 0.00 K/uL RDW Standard Deviation 55.9 fL 56.6 fL RDW Coefficient of Variation 18.1 % 18.2 % Immature Granulocyte % (Auto) 0.3 % 0.4 % Immature Granulocyte # (Auto) 0.06 K/uL 0.04 K/uL Prothrombin Time 10.4 SECONDS Prothromb Time International Ratio 1.0 Activated Partial Thromboplast Time 24.4 SECONDS Partial Thromboplastin Ratio 0.9 Sodium Level 136 mmol/L 136 mmol/L Potassium Level 3.0 mmol/L 3.4 mmol/L Chloride Level 103 mmol/L 104 mmol/L Carbon Dioxide Level 24 mmol/L 22 mmol/L Anion Gap 9.0 mmol/L 10.0 mmol/L Blood Urea Nitrogen 11 mg/dl 14 mg/dl Creatinine 0.99 mg/dl 1.19 mg/dl Est Creatinine Clear Calc Drug Dose 58.2 ml/min 48.5 ml/min Estimated GFR () 67.9 54.3 Estimated GFR (Non- 58.6 46.9 BUN/Creatinine Ratio 11.5 11.5 Random Glucose 121 mg/dl 206 mg/dl Calcium Level 10.1 mg/dl 10.5 mg/dl Total Bilirubin 0.7 mg/dl 0.3 mg/dl Aspartate Amino Transf (AST/SGOT) 24 U/L 18 U/L Alanine Aminotransferase (ALT/SGPT) 25 U/L 22 U/L Alkaline Phosphatase 123 U/L 110 U/L Troponin I < 0.015 ng/ml Pro-B-Type Natriuretic Peptide 42 pg/ml Total Protein 7.2 gm/dl 7.0 gm/dl Albumin 2.9 gm/dl 2.7 gm/dl Globulin 4.3 gm/dl 4.3 gm/dl Albumin/Globulin Ratio 0.7 0.6 Influenza Type A Antigen Neg for Influ A Influenza Type B Antigen Neg for Influ B Urine Color YELLOW Urine Appearance CLEAR Urine pH 6.0 Urine Specific [place] 1.028 Urine Protein NEG Urine Glucose (UA) NEG Urine Ketones NEG Urine Occult Blood NEG Urine Nitrite NEG Urine Bilirubin NEG Urine Urobilinogen NEG Urine Leukocyte Esterase TRACE Urine WBC (Auto) /hpf Urine RBC (Auto) /hpf Urine Hyaline Casts (Auto) /lpf Urine Epithelial Cells (Auto) /lpf Urine Bacteria (Auto) Urine RBC 0-4 /hpf Urine WBC 0 /hpf Urine Epithelial Cells 0-5 /lpf Urine Crystals Urine Calcium Oxalate Crystals PRESENT Urine Bacteria NEG Phosphorus Level 1.7 mg/dl Magnesium Level 2.0 mg/dl (Stefani Mendez, PAJoeC) Assessment and Plan 66 y/o female, with PMHx of asthma, PE/DVTs (October 2015), IgG and IgM Immunodeficiency, HTN, hypothyroidism, autonomic orthostatic hypotension, and GERD, who presented w/ syncopal event and acute respiratory failure w/ hypoxemia. Acute respiratory failure with hypoxemia, likely secondary to mild asthma exacerbation due to bronchitis/sinusitis- follows w/ Dr. Harrington: - Admitted to tele for cardiac monitoring- no acute events, sinus tachycardia w / rates low 100s - Cardiac enzymes negative x1 - EKG w/out ischemic changes - O2 protocol- currently on RA w/ O2 sat at 96% - IV Solu-Medrol decreased to BID from TID today- continue to wean - Doxycycline 100 mg BID + IV Rocephin- will discontinue and start Augmentin BID (on 07/05) - Continue Zyrtec - DuoNeb QID and PRN and continue home inhalers - Influenza negative Syncope, likely secondary to autonomic orthostatic hypotension: - No acute events on tele - UA negative - Check orthostatic BPs- if stable, will d/c IVF - Currently following w/ Dr. 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- Receives treatment at cancer center, next treatment scheduled for 07/10 HTN: - Maxzide 35.5/25 mg daily - Hypertensive this AM- continue to monitor BPs after morning medication - According to the patient, she discontinued other BP meds due to multiple syncopal events w/ significant improvement in symptoms Hypothyroidism: Continue Synthroid 50 mcg Q2D and 75 mcg Q2D HLD: Zocor 20 mg HS GERD: Continue Prevacid 30 mg HS DVT prophylaxis: Heparin SQ TID Code Status: LEVEL I, FULL Dispo: From home- PT/OT consulted- no discharge needs anticipated, hopeful discharge within the next 1-2 days (Stefani Mendez ., PA-C) Attending Attestation: Pt seen/examined, chart reviewed, care plan d/w CHARLEY Mendez. I agree w/ the osman components of her documentation. Pt "feels much better." Still with sinus congestion/headache and cough but no dyspnea. Tele with sinus tach only. VSS except tachycardia o2 sats wnl gen - nad face - tender over multiple sinuses to palpation mouth - MMM neck - no JVD heart - tachy, s1, s2 lungs - hint of end-exp wheeze ow CTA b/l with good air movement abd - soft ext - no edema A/P: 1. syncope - likely from orthostatic hypotension in the setting of illness. Orthostatic BPs today wnl. Since she is so prone to this I am uncertain if triamterene/HCTZ is good BP med for her as it will worsen this issue. Will place on hold; re-eval this issue tomorrow. Cont IVF. 2. asthma with exacerbation - improving; wean steroids. Nebs, incentive. Check FLU PCR to be complete due to high false neg rate of rapid flu test. 3. acute sinusitis - agree with abx change as recommended by Ms. Mendez. 4. mild hypercalcemia - could be due to HCTZ; another reason to stop HCTZ. replace low K, low phos Adán Keita MD (Adán Keita MD)
[2017-07-05] MEDS: POT PHOSPHATE MONOBASIC W/ SOD TAB PO SCH ×3 (13:28→19:58)
--- NOTE | 2017-07-05 16:00 | NUR ---
Switched to PO abx and IVF discontinued; port flushed with Heparin. Potassium and phosphate replaced.
[2017-07-05 16:37] LABS: INFLUENZA A PCR Neg for Influ A (NEG); INFLUENZA B PCR Neg for Influ B (NEG)
[2017-07-05] MEDS: AMOXICILLIN/CLAVULANATE TAB 875 MG TAB PO SCH (18:22)
[2017-07-05] MEDS ORDERED: COUGH DROP (SUGAR FREE) LOZ 24 LOZ/1 BOX ONE (18:28)
[2017-07-05] MEDS ORDERED: NURSING DECISION MEDICATION ORDER SCH ×2 (18:30→20:15)
[2017-07-05] MEDS ORDERED: COUGH DROP (SUGAR FREE) LOZ 24 LOZ/1 BOX PO PRN (18:30)
--- NOTE | 2017-07-05 19:00 | NUR ---
Patient assessment completed and will be charted. Patient is currently sitting comfortably in bedside chair with complaints of a 2.5/10 throat pain. Patient is currently using a throat lozenges at this time. Alert and oriented x 4. Room air. Diminished. Hacking, moist cough productive of a thick white sputum. Denies shortness of breath. Sinus tach on the monitor. No chest pain. Voids in commode. Left A-port is accessed and flushes with ease. Call fitzgerald within reach. Patient agrees to ring for assistance. Continue to monitor patient.
[2017-07-05] MEDS: SIMVASTATIN 20 MG TAB PO SCH (19:57)
[2017-07-05] MEDS ORDERED: SODIUM CHLORIDE 0.65% NA SOLN 45 ML (OCEAN) PRN (20:30)
[2017-07-05] MEDS ORDERED: PANTOprazole SOD 40 MG TAB PO SCH (21:00)
--- NOTE | 2017-07-06 00:01 | NUR ---
Patient assessment completed and will be charted. Patient is currently laying comfortably in bed without complaints of pain. Alert and oriented x 4. Room air. Diminished. Hacking, moist cough productive of a thick white sputum. Denies shortness of breath. Sinus tach on the monitor. No chest pain. Voids in commode. Left A-port is accessed and flushes with ease. Call fitzgerald within reach. Patient agrees to ring for assistance. Continue to monitor patient.
[2017-07-06 03:45] VITALS: BP 122/74; PULSE 95; TEMP 36.8; O2SAT 94
--- NOTE | 2017-07-06 04:00 | NUR ---
No change in assessment. Continue to monitor patient.
[2017-07-06] MEDS: HEPARIN SOD 5000 UNIT/0.5 ML CARP SQ SCH (05:31)
[2017-07-06] MEDS ORDERED: LEVOTHYROXINE 75 MCG TAB PO SCH (06:30)
[2017-07-06 07:11] LABS: CALCIUM 9.7 mg/dl (8.5-10.1); CREATININE 1.1 mg/dl (0.60-1.20); POTASSIUM 3.9 mmol/L (3.5-5.1)
[2017-07-06 07:23] LABS: PHOSPHORUS 3.7 mg/dl (2.5-4.9)
[2017-07-06 07:25] VITALS: PULSE 78; O2SAT 94
[2017-07-06] MEDS: ALBUT/IPRATROP 3MG/0.5MG NEB 3 ML VIAL INH SCH ×2 (07:25→11:22)
[2017-07-06 07:30] VITALS: BP 124/72; PULSE 74; TEMP 36.8; O2SAT 99
[2017-07-06] MEDS: CETIRIZINE HCL 10 MG TAB PO SCH (09:40)
[2017-07-06] MEDS: AMOXICILLIN/CLAVULANATE TAB 875 MG TAB PO SCH (09:40)
[2017-07-06] MEDS: FLUDROCORTISONE ACETATE 0.1 MG TAB PO SCH (09:40)
[2017-07-06] MEDS: FLUTICASONE/SALMETEROL (ADVAIR) 500/50 INH 14 PUFF INH SCH (09:41)
[2017-07-06] MEDS: LACTOBACILLUS ACIDOPHILUS (FLORANEX) TAB PO SCH (09:41)
[2017-07-06] MEDS: METHYLPREDNISOLONE IV 40 MG in SYRINGE 0 ML IV SCH (09:42)
[2017-07-06] MEDS ORDERED: PRED10TA PO (10:26)
[2017-07-06] MEDS ORDERED: AMOX1TAB43 PO (10:26)
--- NOTE | 2017-07-06 10:30 | Discharge Instructions ---
Discharge Instructions Date of Service Jul 06, 2017. Admission Reason for Admission: Respiratory Failure With Hypoxia Discharge Discharge Diagnosis / Problem: Bronchitis, sinusitis, syncope Discharge Goals Goal(s): Decrease discomfort, Improve function, Improve disease control, Learn about illness, Diagnostic testing, Therapeutic intervention, Prevent Disease Progression Activity Recommendations Activity Limitations: resume your previous activity . Instructions / Follow-Up Instructions / Follow-Up Sinusitis/bronchitis: Augmentin twice daily until prescription is completed Prednisone taper- start 40 mg once daily on 07/07 for 2 days, then 30 mg once daily x2 days, then 20 mg once daily x2 days, then 10 mg once daily x1 day Resume all other regular home medications as prescribed FOLLOW-UPS: Please follow-up with your PCP within 5-7 days Please follow-up with Dr. Carbajal within 2 weeks Please follow-up/keep all of your subspecialty appointments Current Hospital Diet Patient's current hospital diet: AHA Diet (Heart Healthy) Discharge Diet Recommended Diet: AHA Diet (Heart Healthy) Pending Studies Studies pending at discharge: no Medical Emergencies . Who to Call and When: Medical Emergencies: If at any time you feel your situation is an emergency, please call 911 immediately. . Non-Emergent Contact Non-Emergency issues call your: Primary Care Provider, Pillowcase Sewer Call Non-Emergent contact if: you have any medication questions . . "Provider Documentation" section prepared by Stefani Mendez. . VTE Core Measure Inpt VTE Proph given/why not?: Unfractionated heparin SQ
--- NOTE | 2017-07-06 10:37 | Discharge Summary ---
Discharge Summary Date of Service Jul 06, 2017. 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 Maximal intensity projection images were also obtained. A dose lowering technique was utilized adhering to the principles of ALARA. COMPARISON STUDY: None. FINDINGS: There is a normal caliber thoracic aorta with no evidence for dissection. There is no evidence for pulmonary embolus. No pleural effusions. No pneumothorax. The liver and spleen are unremarkable. No mediastinal or hilar lymphadenopathy. The central airways are patent. The lungs are clear. IMPRESSION: No evidence for pulmonary embolus. The above report was generated using voice recognition software. It may contain grammatical, syntax or spelling errors. Electronically signed by: Nicolas Sinclair M.D. 07/04/2017 4:10 PM Dictated Date/Time: 07/04/2017 4:08 PM The status of this report is Signed. Draft = Not yet reviewed or approved by Radiologist. Signed = Reviewed and approved by Radiologist. CHEST ONE VIEW PORTABLE CLINICAL HISTORY: EVALUATE RESPIRATORY DISTRESS.DYSPNEA COMPARISON STUDY: Chest CT August 17, 2016 and chest radiograph November 16, 2016. FINDINGS: Electronic device projects over the left heart border. A left subclavian [id number] is unchanged in position. Linear left basilar opacity is suggestive of atelectasis. There is no consolidation to suggest pneumonia. There is no evidence of pulmonary edema. Cardiomediastinal silhouette is normal. IMPRESSION: 1. No acute cardiopulmonary findings. 2. Linear left basilar opacity suggestive of atelectasis. Electronically signed by: Trung Milligan M.D. 07/04/2017 3:25 PM Dictated Date/Time: 07/04/2017 3:23 PM The status of this report is Signed. Draft = Not yet reviewed or approved by Radiologist. Signed = Reviewed and approved by Radiologist. Medication Reconciliation New Medications: Prednisone Tab (Prednisone) 10 Mg Tab 10 MG PO DAILY for 7 Days, #19 TAB 40 mg x2 days (start 07/07), 30 mg x2 days, 20 mg x2 days, 10 mg x1 day Amoxicillin & Pot Clavulanate (Amoxicillin/Clavulanate P) 1 Tab Tab 875 MG PO BIDM for 9 Days, #17 TAB Continued Medications: Albuterol Hfa (Ventolin Hfa) 200 Puffs/79614 Mcg Aers 2 PUFFS INH Q4H PRN for SOB/Wheezing, #1 INHALER Albuterol Sulf (Proventil 0.083% 2.5MG/3ML) 2.5 Mg/3 Ml Nebu 2.5 MG INH QID PRN for SOB/Wheezing, EA Cetirizine Hcl (Zyrtec) 10 Mg Tab 10 MG PO QAM, TAB Fiber Laxative (Fiber Laxative) Ea 1 TAB PO BID Fish Oil (Grant-3) 1 Ea Cap 1 CAPSULE PO BID, 0 Refills Fludrocortisone Acetate (Florinef) 0.1 Mg Tab 0.1 MG PO DAILY, TAB Fluticasone Prop/Salmeterol (Advair Diskus 500/50 60 Dose) 1 Ea Aerp 1 PUFF INH BID Lansoprazole (Prevacid) 30 Mg Capcr 30 MG PO HS, CAP Levothyroxine Sodium (Synthroid) 75 Mcg Tab 75 MCG PO Q2D Levothyroxine Sodium (Synthroid) 50 Mcg Tab 50 MCG PO Q2D, TAB Simvastatin (Zocor) 20 Mg Tab 20 MG PO QPM, 0 Refills Triamcinolone Acetonide (Nasal (Nasacort Allergy 24Hr) 55 Mcg/Act Spr 2 SPRAYS YARIEL QAM PRN for . Discontinued Medications: Doxycycline Monohydrate (Monodox) 100 Mg Cap Unknown Dose PO BID, CAP Discharge Exam Review of Systems: Constitutional: No fever, No chills, No sweats, No weakness, No fatigue Eyes: No worsening of vision ENT: + nasal symptoms, No hearing loss Respiratory: + cough, + sputum, No wheezing, No shortness of breath, No dyspnea on exertion, No hemoptysis Cardiovascular: No chest pain, No edema, No palpitations Abdomen: No pain, No nausea, No vomiting, No diarrhea, No constipation Musculoskeletal: No joint pain, No muscle pain, No swelling, No calf pain Genitourinary - Female: No dysuria, No hematuria Neurologic: No weakness, No numbness/tingling Psychiatric: No depression symptoms, No anxiety Endocrine: No fatigue Hematologic / Lymphatic: No abnormal bleeding/bruising Integumentary: No rash, No itch, No new/changing skin lesions Physical Exam: General Appearance: no apparent distress, + obese Eyes: normal inspection, PERRL ENT: hearing grossly normal Neck: supple Respiratory/Chest: lungs clear, no respiratory distress, no accessory muscle use, + decreased breath sounds (throughout ) Cardiovascular: regular rate, rhythm Abdomen / GI: normal bowel sounds, non tender, soft Extremities: no calf tenderness, no pedal edema Neurologic/Psychiatric: alert, normal mood/affect, oriented x 3 Skin: normal color, warm/dry, no rash Hospital Course Admission H&P: 66 y/o female with PMHx of Asthma, 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 5 days ago patient developed upper respiratory tract infection/sinusitis and posterior nasal discharge. She also has some productive cough with yellowish/ greenish mucus. Patient primary care physician started her on doxycycline. Patient slightly started to improve. As per patient yesterday her cough significantly better. Yesterday she felt dizzy and more short of breath. She walked to the couch and sat on the couch and passed out for a few minutes.. Patient is used for passing out. She is on Florinef for autonomic orthostatic hypotension. She was instructed by her primary care physician to lay Down and raise her legs if she ever passed out or felt like passing out Today she noticed increased shortness of breath. Her cough is still better but she started to have wheezing and possible bronchospastic. Arrival to the ED her O2 sat was 89%. Clinically improved on 2 L of O2 Patient feels that despite of improving her sinusitis and bronchitis, she developed what appears to be bronchospasm and COPD exacerbation Physical Exam Vital Signs Date Time Temp Pulse Resp B/P (MAP) Pulse Ox O2 Delivery O2 Flow Rate FiO2 07/04/17 19:56 90 18 118/71 96 07/04/17 18:58 91 18 124/75 96 Nasal Cannula 2.0 07/04/17 18:24 100 1/2/18 17:43 91 18 125/80 96 Nasal Cannula 2.0 07/04/17 16:00 98 18 126/67 95 Nasal Cannula 2.0 07/04/17 14:39 94 Nasal Cannula 2.0 07/04/17 14:38 89 Room Air 07/04/17 14:29 99 07/04/17 14:07 92 Room Air 07/04/17 14:07 37.5 96 20 143/90 92 Room Air General Appearance: no apparent distress, + obese Head: normocephalic, atraumatic Eyes: normal inspection, EOMI ENT: normal ENT inspection, hearing grossly normal Neck: supple Respiratory/Chest: chest non-tender, + decreased breath sounds, + wheezing Cardiovascular: regular rate, rhythm, no edema, no gallop, no JVD, no murmur, normal peripheral pulses Abdomen/GI: normal bowel sounds, non tender, soft, no organomegaly, no pulsatile mass Back: normal inspection Extremities/Musculoskelatal: normal inspection, no pedal edema Neurologic/Psych: information assurance II-XII nml as tested, no motor/sensory deficits, alert, normal mood/affect, normal reflexes, oriented x 3 Skin: normal color, warm/dry, no rash Hospital Course: 66 y/o female, with PMHx of asthma, PE/DVTs (October 2015), IgG and IgM Immunodeficiency, HTN, hypothyroidism, autonomic orthostatic hypotension, and GERD, who presented w/ syncopal event and acute respiratory failure w/ hypoxemia. Acute respiratory failure with hypoxemia, likely secondary to mild asthma exacerbation due to bronchitis/sinusitis- follows w/ Dr. Harrington: - Admitted to tele for cardiac monitoring- no acute events, sinus tachycardia w / rates low 100s - Cardiac enzymes negative x1 - EKG w/out ischemic changes - O2 protocol- currently on RA - IV Solu-Medrol decreased to BID from TID today- continue to wean- Prednisone taper at discharge - Doxycycline 100 mg BID + IV Rocephin- will discontinue and started Augmentin BID (on 07/05) x10 days - Continue Zyrtec - DuoNeb QID and PRN and continue home inhalers - Influenza negative Syncope, likely secondary to autonomic orthostatic hypotension: - No acute events on tele - UA negative - Check orthostatic BPs- STABLE - Continue Florinef 0.1 mg da - Currently following w/ Dr. 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 Carbajal is OK w/ BPs up in 180s to prevent further events Hypothyroidism: Continue Synthroid 50 mcg Q2D and 75 mcg Q2D HLD: Zocor 20 mg HS GERD: Continue Prevacid 30 mg HS DVT prophylaxis: Heparin SQ TID Code Status: LEVEL I, FULL Dispo: Discharge to home PA Physician Supervision Note: I interviewed and examined the patient. Discussed with Stefani ARVIZU and agree with findings and plan as documented in the note. Any exceptions or clarifications are listed here: None Patient here with acute asthma exacerbation with bronchitis with acute hypoxic respiratory failure all is improved she does see Dr. Parada can at times is had intravenous immunoglobulin in the past she feels much better to be discharged home on tapering dose of prednisone at completion of the course of Augmentin Some discharge her vitals are stable her lungs were clear with good air movement no wheezes no cough Asthma exacerbation with acute hypoxic respiratory failure plus bronchitis recovering well we'll follow Dr. Harrington Documented By: Kenneth Mendez Total Time Spent: Greater than 30 minutes This includes examination of the patient, discharge planning, medication reconciliation, and communication with other providers. Discharge Instructions Please refer to the electronic Patient Visit Report (Discharge Instructions) for additional information. Follow-Up Please follow-up with your PCP within 5-7 days Please follow-up with Dr. Carbajal within 2 weeks Please follow-up/keep all of your subspecialty appointments Additional Copies To Elroy Carbajal, DO; Joselito Harrington M.D.
--- NOTE | 2017-07-06 11:03 | NUR ---
I have been asked to arrange a PCP follow up for Ms. Cruz. The appointment information is below as it has been documented in the discharge. ZAMUDIO "Important Appointment Information Ms. Cruz, The following appointment has been arranged for you, Please follow up with Dr. Joselito Harrington on Monday, July 10, 2017 at 2:00pm. *If you need to reschedule this appointment please call the office at [phone]. Thank you."
[2017-07-06 11:22] VITALS: PULSE 72; O2SAT 94
[2017-07-06 11:44] VITALS: BP 120/68; PULSE 75; TEMP 36.5; O2SAT 98
[2017-07-06 12:45] VITALS: BP 120/68; PULSE 75; TEMP 36.5; O2SAT 98
[2017-07-19] MEDS ORDERED: MULT-506 PO (08:43)
[2017-11-28] MEDS ORDERED: ZOFRAN ODT 4MG PO (13:01)
[2017-11-28] MEDS ORDERED: ULT50X PO (13:01)
[2017-11-28] MEDS ORDERED: ERTA1INJ IV (13:01)
== END 2017-07-06 14:10 | disposition home or self-care (01) | DRG 202 ==
LOC: EDBD 13:54 → C.EDA 13:55 → C.2E 19:24 → ENRESERV 19:36
PROVIDERS: ADMIT Internal Medicine; ATTEND Internal Medicine
DX: J20.9 Acute bronchitis, unspecified (principal); J96.01 Acute respiratory failure with hypoxia; J45.901 Unspecified asthma with (acute) exacerbation; D80.3 Selective deficiency of immunoglobulin G [IgG] subclasses; D80.4 Selective deficiency of immunoglobulin M [IgM]; J01.90 Acute sinusitis, unspecified; I95.1 Orthostatic hypotension; R19.7 Diarrhea, unspecified; E87.6 Hypokalemia; E83.39 Other disorders of phosphorus metabolism; I10 Essential (primary) hypertension; E03.9 Hypothyroidism, unspecified; E78.5 Hyperlipidemia, unspecified; K21.9 Gastro-esophageal reflux disease without esophagitis; E66.9 Obesity, unspecified; Z68.35 Body mass index [BMI] 35.0-35.9, adult; Z86.711 Personal history of pulmonary embolism; Z86.718 Personal history of other venous thrombosis and embolism; Z88.1 Allergy status to other antibiotic agents; Z83.6 Family history of other diseases of the respiratory system; Z82.49 Family history of ischemic heart disease and other diseases of the circulatory system

== ENCOUNTER 2017-07-11 16:31 | Inpatient (IN) | payer BC, OTHER ==
[~2017-07-11] VITALS: Ht 160 cm; Wt 96.9 kg
[~2017-07-11 16:31] MED LIST changes: +AMOX1TAB43 PO; +FLR/1 PO; -IVIG IV; +PRED10TA PO; -TRIATAB3 PO
[2017-07-11] MEDS ORDERED: ONDANSETRON INJ 2 MG/ML 2 ML VIAL IV STA ×2 (16:51→23:16)
[2017-07-11] MEDS ORDERED: SODIUM CHLORIDE 0.9% 1000ML 1,000 ML IV STA (16:51)
[2017-07-11] MEDS: HYDROmorphone INJ 0.5 MG/0.5 ML SYR IV PRN ×2 (17:50→21:16)
[2017-07-11 17:55] LABS: HEMATOCRIT 40.2 % (37-47); MEAN CELL VOLUME 84.1 fL (80-100); MEAN CORPUSCULAR HEMOGLOBIN 27.2 pg (25-34); MEAN CORPUSCULAR HGB CONC 32.3 g/dl (32-36); MEAN PLATELET VOLUME 11.3 fL (7.4-10.4); PLATELET COUNT 291 K/uL (130-400); RED CELL DISTRIBUTION WIDTH CV 18.3 % (11.5-14.5); RED CELL DISTRIBUTION WIDTH SD 56.9 fL (36.4-46.3); WHITE BLOOD COUNT 26.52 K/uL (4.8-10.8)
[2017-07-11 18:16] LABS: ALBUMIN 2.9 gm/dl (3.4-5.0); CALCIUM 9.7 mg/dl (8.5-10.1); CREATININE 1.04 mg/dl (0.60-1.20); POTASSIUM 3.1 mmol/L (3.5-5.1)
[2017-07-11 18:19] LABS: TOTAL PROTEIN 7.3 gm/dl (6.4-8.2)
[2017-07-11] MEDS ORDERED: METRONIDAZOLE 500MG / 100ML NSS IV STA (18:21)
[2017-07-11] MEDS ORDERED: [UNRECOGNIZED DRUG - CODE] INJ (18:21)
[2017-07-11] MEDS ORDERED: CEFEPIME IV 1,000 MG in DEXTROSE 5% 100ML 100 ML IV STA (18:21)
--- NOTE | 2017-07-11 18:23 | DIAGNOSTIC IMAGING REPORT ---
CT SCAN OF THE ABDOMEN AND PELVIS WITHOUT IV CONTRAST CLINICAL HISTORY: Right lower quadrant abdominal pain. COMPARISON STUDY: No priors. TECHNIQUE: CT scan of the abdomen and pelvis is performed from the lung bases to the proximal femora. Images are reviewed in the axial, sagittal, and coronal planes. IV contrast was not administered for this examination as per the referring clinician. Note that the examination was performed in suboptimal fashion without oral and IV contrast. A dose lowering technique was utilized adhering to the principles of ALARA. CT DOSE: 1158.22 mGy.cm FINDINGS: Lung bases: The heart is normal in size and without pericardial effusion. The lung bases are clear noting bibasilar atelectasis. There is a small hiatal hernia. Liver: The unenhanced liver is enlarged, measuring 18.5 cm in length. The liver demonstrates diffusely diminished attenuation consistent with hepatic steatosis. There is no intrahepatic biliary ductal dilatation. Gallbladder: Unremarkable. Spleen: Normal in size and attenuation. Pancreas: Unenhanced pancreas is atrophic and grossly unremarkable. Adrenal glands: Unremarkable. Kidneys: The unenhanced kidneys history cortical atrophy and are without hydronephrosis. There are no renal calculi identified. Numerous renal cysts are identified and measure up to 3.6 cm. Abdominal vasculature: The abdominal aorta is normal in course and caliber. Bowel: There is moderate colonic diverticulosis. There is wall thickening with significant pericolonic inflammation and fluid seen involving the proximal sigmoid colon consistent with acute diverticulitis. No organized fluid collection is seen to indicate abscess on this unenhanced examination. No bowel obstruction is identified. The appendix is well-visualized and normal. Peritoneum: There is a small volume of free fluid in the pelvis. There are numerous tiny foci of intraperitoneal free air seen in the central pelvis (axial images #257 and #265). There is a fat-containing umbilical hernia. Lymphadenopathy: None. Pelvic viscera: The bladder is normal as visualized. The uterus is surgically absent. No adnexal lesion is seen. Skeletal structures: The skeletal structures are osteopenic. There is moderate lumbosacral spondylosis. No lytic or blastic lesions are seen. IMPRESSION: 1. There is moderate colonic diverticulosis with evidence of acute sigmoid diverticulitis. Small foci of intraperitoneal free air are identified and indicate perforation. 2. No organized fluid collection is seen to suggest abscess on this unenhanced examination. 3. Hepatomegaly and hepatic steatosis. 4. Additional findings as above. Electronically signed by: Taz Talavera M.D. 07/11/2017 6:22 PM Dictated Date/Time: 07/11/2017 6:14 PM
[2017-07-11 18:28] LABS: BASO % 0.1 %; BASO ABS # 0.02 K/uL (0-0.2); EOS % 0.4 %; EOS ABS # 0.11 K/uL (0-0.5); IG# 0.22 K/uL (0.00-0.02); LYMPH % 7.8 %; LYMPH ABS # 2.08 K/uL (1.2-3.4); MONO % 4.7 %; MONO ABS # 1.25 K/uL (0.11-0.59); NEUT % 86.2 %; NEUT ABS # 22.84 K/uL (1.4-6.5)
--- NOTE | 2017-07-11 18:54 | Medical Consult ---
Consultation Date of Consultation: Jul 11, 2017. Attending Physician: Reason for Consultation: diverticulitis History of Present Illness recent abd cramping, gas over past 2-3 days- ER evaluation shows perforated diverticulitis- pericolonic gas , no significant abscess Past Medical/Surgical History Medical Problems: (1) Ankle pain Status: Acute (2) Asthma exacerbation Status: Acute (3) Closed head injury Status: Acute (4) Forearm laceration Status: Acute (5) Fracture of fifth metatarsal bone of left foot Status: Acute (6) Hypoxia Status: Acute (7) Left lower lobe pneumonia Status: Acute (8) Syncope Status: Acute (9) Syncope Status: Acute (10) Syncope Status: Acute Family History Hypertension Lung disease Social History Smoking Status: Never Smoker Drug Use: none Marital Status: Housing Status: lives with family Occupation Status: retired Allergies Coded Allergies: Erythromycin (Verified Allergy, Severe, NAUSEA, DRY HEAVES, 07/11/17) Levofloxacin (Verified Allergy, Severe, Anaphylaxis, 07/11/17) POLLEN (Verified Allergy, Intermediate, SHORTNESS OF BREATH, 07/11/17) Aspirin (Verified Allergy, Unknown, HIVES, 07/11/17) Fluticasone (Verified Adverse Reaction, Unknown, DIZZINESS, 07/11/17) Current Inpatient Medications Current Inpatient Medications Medications (Trade) Dose Ordered Sig/Ross Route Start Time Stop Time Status Last Admin Dose Admin Sodium Chloride 1,000 ml @ 125 mls/hr Q8H STAT IV 07/11/17 16:51 07/12/17 00:50 07/11/17 16:51 125 MLS/HR Hydromorphone HCl (Dilaudid Inj) 0.5 mg Q15M PRN IV 07/11/17 17:00 07/25/17 16:59 07/11/17 17:50 0.5 MG Cefepime HCl 1000 mg/Dextrose 111 ml @ 200 mls/hr NOW STAT IV 07/11/17 18:21 07/11/17 18:54 Review of Systems Constitutional: No fever, No chills Respiratory: No shortness of breath Cardiovascular: No chest pain Abdomen: + pain, + vomiting Genitourinary - Female: No dysuria Neurologic: + weakness Endocrine: + fatigue Integumentary: No rash Physical Exam Date Time Temp Pulse Resp B/P (MAP) Pulse Ox O2 Delivery O2 Flow Rate FiO2 07/11/17 17:51 73 158/75 96 Room Air 07/11/17 16:44 77 07/11/17 16:39 36.6 70 159/84 97 Room Air General Appearance: no apparent distress Head: atraumatic Eyes: sclerae normal Neck: supple Respiratory/Chest: no respiratory distress Cardiovascular: regular rate, rhythm Abdomen/GI: normal bowel sounds, soft, + tenderness (to deep palpation in lower abd) Neurologic/Psych: alert Skin: warm/dry Laboratory Results Last 24 Hours Test 07/11/17 17:32 White Blood Count 26.52 K/uL Red Blood Count 4.78 M/uL Hemoglobin 13.0 g/dL Hematocrit 40.2 % Mean Corpuscular Volume 84.1 fL Mean Corpuscular Hemoglobin 27.2 pg Mean Corpuscular Hemoglobin Concent 32.3 g/dl Platelet Count 291 K/uL Mean Platelet Volume 11.3 fL Neutrophils (%) (Auto) 86.2 % Lymphocytes (%) (Auto) 7.8 % Monocytes (%) (Auto) 4.7 % Eosinophils (%) (Auto) 0.4 % Basophils (%) (Auto) 0.1 % Neutrophils # (Auto) 22.84 K/uL Lymphocytes # (Auto) 2.08 K/uL Monocytes # (Auto) 1.25 K/uL Eosinophils # (Auto) 0.11 K/uL Basophils # (Auto) 0.02 K/uL RDW Standard Deviation 56.9 fL RDW Coefficient of Variation 18.3 % Immature Granulocyte % (Auto) 0.8 % Immature Granulocyte # (Auto) 0.22 K/uL Anisocytosis PRESENT Ovalocytes 1+ Sodium Level 138 mmol/L Potassium Level 3.1 mmol/L Chloride Level 103 mmol/L Carbon Dioxide Level 25 mmol/L Anion Gap 9.0 mmol/L Blood Urea Nitrogen 18 mg/dl Creatinine 1.04 mg/dl Est Creatinine Clear Calc Drug Dose 57.4 ml/min Estimated GFR () 63.9 Estimated GFR (Non- 55.2 BUN/Creatinine Ratio 16.9 Random Glucose 112 mg/dl Calcium Level 9.7 mg/dl Total Bilirubin 0.5 mg/dl Direct Bilirubin 0.1 mg/dl Aspartate Amino Transf (AST/SGOT) 16 U/L Alanine Aminotransferase (ALT/SGPT) 31 U/L Alkaline Phosphatase 100 U/L Total Protein 7.3 gm/dl Albumin 2.9 gm/dl Lipase 116 U/L Assessment & Plan pt admitted with perforated diverticulitis- IV atbx and bowel rest- ice only for now. Trying to avoid urgent/ emergent operation- colostomy. Depending on progress- if site worsens (abscess) may need IR drainage. Possible rescan later in week. May require 2 weeks atbx IV via port. ask ID to see tomorrow
--- NOTE | 2017-07-11 19:15 | EMERGENCY ROOM VISIT NOTE ---
History Report prepared by Binta: Christoph Lopes Under the Supervision of: Dr. Joselito Block M.D. First contact with patient: 16:36 Stated Complaint: AB DISTENTION, GENERAL MALAISE History of Present Illness The patient is a 66 year old female who presents to the Emergency Room with complaints of worsening abdominal distension starting last night. The patient additionally is complaining of chills, nausea, vomiting, and some abdominal cramping. She currently rates her discomfort as a 2/10 in severity, however at one point it was a 10/10 in severity. She notes that her pain was improved after vomiting and urinating. The patient states that she is currently feeling short of breath. The patient was admitted to the hospital two weeks ago for for hypoxic respiratory failure, asthma, bronchitis, and sinusitis, and she has a history of a hysterectomy and autonomic dysfunction and is immunodeficient. Pt denies LOC, headache, fevers, diaphoresis, visual changes, neck pain, chest pain , back pain, melena, hematochezia, urinary symptoms, numbness, weakness, lymphadenopathy, rash, or other complaints. Source of History: patient Onset: last night Position: abdomen Quality: other (distension) Timing: worsening Modifying Factors (Relieving): urination, other (vomiting) Associated Symptoms: + chills, + SOB, + nausea, + vomiting, + abdominal pain Review of Systems See HPI for pertinent positives and negatives. A total of ten systems were reviewed and were otherwise negative. Past Medical & Surgical Medical Problems: (1) Asthma (2) Breast Biopsy 2006 (3) Chronic asthmatic bronchitis (4) Gastroesophageal reflux disease (5) GERD (6) Hx of deep venous thrombosis (7) Hx pulmonary embolism (8) Hypercholesterolemia (9) Hyperlipidemia (10) Hypertension (11) Hypokalemia (12) Hypothyroidism (13) Hysterectomy 1989 (14) Knee Replacement Surgery (15) Pneumonia (16) Respiratory failure with hypoxia (17) Rhinitis (18) Right Rotator Cuff Repair 2004 (19) Seasonal Allergies (20) Vaginal Repair 1999 Family History Hypertension Lung disease Social History Smoking Status: Never Smoker Alcohol Use: occasionally Drug Use: none Marital Status: Housing Status: lives with family Occupation Status: retired Current/Historical Medications Scheduled Amoxicillin & Pot Clavulanate (Amoxicillin/Clavulanate P), 875 MG PO BIDM Cetirizine Hcl (Zyrtec), 10 MG PO QAM Fiber Laxative (Fiber Laxative), 1 TAB PO BID Fish Oil ([place]-3), 1 CAPSULE PO BID Fludrocortisone Acetate (Florinef), 0.1 MG PO DAILY Fluticasone Prop/Salmeterol (Advair Diskus 500/50 60 Dose), 1 PUFF INH BID Immune Globulin (Human) (Gammagard Liquid), 1 DOSE INJ Q28D Lansoprazole (Prevacid), 30 MG PO HS Levothyroxine Sodium (Synthroid), 75 MCG PO Q2D Levothyroxine Sodium (Synthroid), 50 MCG PO Q2D Prednisone Tab (Prednisone), 10 MG PO DAILY Simvastatin (Zocor), 20 MG PO QPM Scheduled PRN Albuterol Hfa (Ventolin Hfa), 2 PUFFS INH Q4H PRN for SOB/Wheezing Albuterol Sulf (Proventil 0.083% 2.5MG/3ML), 2.5 MG INH QID PRN for SOB/Wheezing Triamcinolone Acetonide (Nasal (Nasacort Allergy 24Hr), 2 SPRAYS YARIEL QAM PRN for . Allergies Coded Allergies: Erythromycin (Verified Allergy, Severe, NAUSEA, DRY HEAVES, 07/11/17) Levofloxacin (Verified Allergy, Severe, Anaphylaxis, 07/11/17) POLLEN (Verified Allergy, Intermediate, SHORTNESS OF BREATH, 07/11/17) Aspirin (Verified Allergy, Unknown, HIVES, 07/11/17) Fluticasone (Verified Adverse Reaction, Unknown, DIZZINESS, 07/11/17) Physical Exam Vital Signs Date Time Temp Pulse Resp B/P (MAP) Pulse Ox O2 Delivery O2 Flow Rate FiO2 07/11/17 17:51 73 158/75 96 Room Air 07/11/17 16:44 77 07/11/17 16:39 36.6 70 159/84 97 Room Air Physical Exam GENERAL: Awake, alert, uncomfortable-appearing, in no distress HENT: Normocephalic, atraumatic. Oropharynx unremarkable. EYES: Normal conjunctiva. Sclera non-icteric. NECK: Supple. No nuchal rigidity. FROM. No JVD. RESPIRATORY: Clear to auscultation. CARDIAC: Regular rate, normal rhythm. Extremities warm and well perfused. Pulses equal. CHEST: Port in the left upper chest. ABDOMEN: Generalized abdominal pain, and moderate pain in the right lower abdomen. There is rebound and guarding. The abdomen is moderately distended. RECTAL: Deferred. MUSCULOSKELETAL: Chest examination reveals no tenderness. The back is symmetrical on inspection without obvious abnormality. There is no CVA tenderness to palpation. No joint edema. LOWER EXTREMITIES: Calves are equal size bilaterally and non-tender. No edema. No discoloration. NEURO: Normal sensorium. No sensory or motor deficits noted. SKIN: No rash or jaundice noted. Medical Decision & Procedures ER Provider Diagnostic Interpretation: Radiology results as stated below per my review and radiologist interpretation: CT SCAN OF THE ABDOMEN AND PELVIS WITHOUT IV CONTRAST CLINICAL HISTORY: Right lower quadrant abdominal pain. COMPARISON STUDY: No priors. TECHNIQUE: CT scan of the abdomen and pelvis is performed from the lung bases to the proximal femora. Images are reviewed in the axial, sagittal, and coronal planes. IV contrast was not administered for this examination as per the referring clinician. Note that the examination was performed in suboptimal fashion without oral and IV contrast. A dose lowering technique was utilized adhering to the principles of ALARA. CT DOSE: 1158.22 mGy.cm FINDINGS: Lung bases: The heart is normal in size and without pericardial effusion. The lung bases are clear noting bibasilar atelectasis. There is a small hiatal hernia. Liver: The unenhanced liver is enlarged, measuring 18.5 cm in length. The liver demonstrates diffusely diminished attenuation consistent with hepatic steatosis. There is no intrahepatic biliary ductal dilatation. Gallbladder: Unremarkable. Spleen: Normal in size and attenuation. Pancreas: Unenhanced pancreas is atrophic and grossly unremarkable. Adrenal glands: Unremarkable. Kidneys: The unenhanced kidneys history cortical atrophy and are without hydronephrosis. There are no renal calculi identified. Numerous renal cysts are identified and measure up to 3.6 cm. Abdominal vasculature: The abdominal aorta is normal in course and caliber. Bowel: There is moderate colonic diverticulosis. There is wall thickening with significant pericolonic inflammation and fluid seen involving the proximal sigmoid colon consistent with acute diverticulitis. No organized fluid collection is seen to indicate abscess on this unenhanced examination. No bowel obstruction is identified. The appendix is well-visualized and normal. Peritoneum: There is a small volume of free fluid in the pelvis. There are numerous tiny foci of intraperitoneal free air seen in the central pelvis (axial images #257 and #265). There is a fat-containing umbilical hernia. Lymphadenopathy: None. Pelvic viscera: The bladder is normal as visualized. The uterus is surgically absent. No adnexal lesion is seen. Skeletal structures: The skeletal structures are osteopenic. There is moderate lumbosacral spondylosis. No lytic or blastic lesions are seen. IMPRESSION: 1. There is moderate colonic diverticulosis with evidence of acute sigmoid diverticulitis. Small foci of intraperitoneal free air are identified and indicate perforation. 2. No organized fluid collection is seen to suggest abscess on this unenhanced examination. 3. Hepatomegaly and hepatic steatosis. 4. Additional findings as above. Electronically signed by: Taz Talavera M.D. 07/11/2017 6:22 PM Dictated Date/Time: 07/11/2017 6:14 PM Laboratory Results 07/11/17 17:32 Red Blood Count 4.78, Mean Corpuscular Volume 84.1, Mean Corpuscular Hemoglobin 27.2, Mean Corpuscular Hemoglobin Concent 32.3, Mean Platelet Volume 11.3, Neutrophils (%) (Auto) 86.2, Lymphocytes (%) (Auto) 7.8, Monocytes (%) (Auto) 4.7, Eosinophils (%) (Auto) 0.4, Basophils (%) (Auto) 0.1, Neutrophils # (Auto) 22.84, Lymphocytes # (Auto) 2.08, Monocytes # (Auto) 1.25, Eosinophils # (Auto) 0.11, Basophils # (Auto) 0.02 07/11/17 17:32 Test 07/11/17 17:32 White Blood Count 26.52 K/uL (4.8-10.8) Red Blood Count 4.78 M/uL (4.2-5.4) Hemoglobin 13.0 g/dL (12.0-16.0) Hematocrit 40.2 % (37-47) Mean Corpuscular Volume 84.1 fL (80-100) Mean Corpuscular Hemoglobin 27.2 pg (25-34) Mean Corpuscular Hemoglobin Concent 32.3 g/dl (32-36) Platelet Count 291 K/uL (130-400) Mean Platelet Volume 11.3 fL (7.4-10.4) Neutrophils (%) (Auto) 86.2 % Lymphocytes (%) (Auto) 7.8 % Monocytes (%) (Auto) 4.7 % Eosinophils (%) (Auto) 0.4 % Basophils (%) (Auto) 0.1 % Neutrophils # (Auto) 22.84 K/uL (1.4-6.5) Lymphocytes # (Auto) 2.08 K/uL (1.2-3.4) Monocytes # (Auto) 1.25 K/uL (0.11-0.59) Eosinophils # (Auto) 0.11 K/uL (0-0.5) Basophils # (Auto) 0.02 K/uL (0-0.2) RDW Standard Deviation 56.9 fL (36.4-46.3) RDW Coefficient of Variation 18.3 % (11.5-14.5) Immature Granulocyte % (Auto) 0.8 % Immature Granulocyte # (Auto) 0.22 K/uL (0.00-0.02) Anisocytosis PRESENT Ovalocytes 1+ Anion Gap 9.0 mmol/L (3-11) Est Creatinine Clear Calc Drug Dose 57.4 ml/min Estimated GFR () 63.9 Estimated GFR (Non- 55.2 BUN/Creatinine Ratio 16.9 (10-20) Calcium Level 9.7 mg/dl (8.5-10.1) Total Bilirubin 0.5 mg/dl (0.2-1) Direct Bilirubin 0.1 mg/dl (0-0.2) Aspartate Amino Transf (AST/SGOT) 16 U/L (15-37) Alanine Aminotransferase (ALT/SGPT) 31 U/L (12-78) Alkaline Phosphatase 100 U/L (45-117) Total Protein 7.3 gm/dl (6.4-8.2) Albumin 2.9 gm/dl (3.4-5.0) Lipase 116 U/L (73-393) Laboratory results reviewed by me Medications Administered Medications (Trade) Dose Ordered Sig/Ross Route Start Time Stop Time Status Last Admin Dose Admin Sodium Chloride 1,000 ml @ 125 mls/hr Q8H STAT IV 07/11/17 16:51 07/12/17 00:50 07/11/17 16:51 125 MLS/HR Ondansetron HCl (Zofran Inj) 4 mg NOW STAT IV 07/11/17 16:51 07/11/17 16:53 DC 07/11/17 17:50 4 MG Hydromorphone HCl (Dilaudid Inj) 0.5 mg Q15M PRN IV 07/11/17 17:00 07/25/17 16:59 07/11/17 17:50 0.5 MG Metronidazole (Flagyl / Nss) 500 mg NOW STAT IV 07/11/17 18:21 07/11/17 18:24 DC 07/11/17 18:36 500 MG ECG Indication: abdominal pain Rate (beats per minute): 78 Rhythm: normal sinus Findings: no acute ischemic change, no ectopy ED Course 1636: The patient was evaluated in room B9. A complete history and physical exam was performed. 1651: Zofran 4mg IV, Sodium Chloride 1000 ml @ 125 mls/hr IV 1700: Dilaudid 0.5mg IV 181: I discussed the patient's case with Dr. Hay - Surgery, and he is going to look at the imaging and evaluate the patient. 182: Flagyl/ NSS 500mg IV, Cefepime HCl 1000mg/ Dextrose 111ml @ 200mls/hr IV 1823: I reevaluated the patient, and she was doing well. I discussed the treatment plan with her, and she was agreeable. 1825: Discussed the patient's case with Dr. Gee. The patient will be evaluated for further treatment and disposition. Medical Decision Prior records/ancillary studies reviewed. Triage Nursing notes reviewed and agree them. Additional history obtained from her significant other.. The patient's history was concerning for abdominal pain. Differential diagnosis: Etiologies such as diverticulitis, appendicitis, perforated viscus, PUD, biliary pathology, UTI, pancreatitis, obstruction, mesenteric ischemia, aortic pathology, infections, inflammatory bowel disease, renal colic, as well as others were entertained. Physical examination findings: As above. Peritoneal findings on abdominal examination. ER treatment provided: IV saline hydration IV Zofran IV Dilaudid On reassessment the patient felt better. IV cefepime IV Flagyl Diagnostics interpreted by me: ECG: Unremarkable The labs revealed negative to get leukocytosis. Chemistry panel was unremarkable except for mild hypokalemia. Imaging studies: CT as above She has perforated diverticulitis. She will need admission to the hospital. Consultation: A consultation was placed with general surgery and internal medicine. The case was discussed and diagnostics were reviewed. The patient was evaluated in the ER for further treatment. Medication Reconcilliation Current Medication List: was personally reviewed by me Blood Pressure Screening Patient's blood pressure: Elevated blood pressure Monitored by the hospitalist. Consults Consulting Physician: Dr. Hay - Gaurav I discussed the patient's case with Dr. Satnam Nolasco, and he is going to look at the imaging and evaluate the patient. Additional Consults: Consulted Physician: Dr. Gee Additional Comments: Discussed the patient's case with Dr. Gee. The patient will be evaluated for further treatment and disposition. Impression Primary Impression: Diverticulitis of colon with perforation Scribe Attestation The scribe's documentation has been prepared under my direction and personally reviewed by me in its entirety. I confirm that the note above accurately reflects all work, treatment, procedures, and medical decision making performed by me. Departure Information Dispostion Being Evaluated By Hospitalist Referrals Joselito Harrington M.D. (PCP)
--- NOTE | 2017-07-11 20:48 | History and Physical ---
History & Physical Date & Time of Service: Jul 11, 2017 at 20:48 Chief Complaint: Ab Distention, General Malaise Primary Care Physician: Joselito Harrington M.D. History of Present Illness Source: patient, hospital records 66 y/o female with a past medical history of Asthma, 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 Yesterday evening the patient was having abdominal like pressure from her epigastric region to her pubis although was able to fall asleep. When she woke up this morning she had breakfast and began having progressive distension and gas with belching. This continued to progress to pain, chills, cramping, and eventually nausea and vomiting. Her pain was sharp and diffuse throughout the abdomen although worst at the groin region bilaterally. She had a dose of IVIG yesterday and was on prednisone yesterday after the treatment. She was also recently discharged 1 week ago from the hospital with bronchitis and asthma exacerbation and was discharged home on steroid therapy. She was evaluated by Dr. Hay who recommended the patient does not require surgery at this time and conservative management would be adequate at this time. Past Medical/Surgical History Medical Problems: (1) Asthma Status: Chronic (2) Breast Biopsy 2006 Status: Resolved (3) Chronic asthmatic bronchitis Status: Chronic (4) Gastroesophageal reflux disease Status: Chronic (5) GERD Status: Chronic (6) Hx of deep venous thrombosis Status: Resolved (7) Hx pulmonary embolism Status: Resolved (8) Hypercholesterolemia Status: Chronic (9) Hypertension Status: Chronic (10) Hypokalemia Status: Resolved (11) Hypothyroidism Status: Chronic (12) Hysterectomy 1989 Status: Resolved (13) Knee Replacement Surgery Status: Resolved (14) Pneumonia Status: Chronic (15) Respiratory failure with hypoxia Status: Resolved (16) Rhinitis Status: Chronic (17) Right Rotator Cuff Repair 2004 Status: Resolved (18) Seasonal Allergies Status: Chronic (19) Vaginal Repair 1999 Status: Resolved Family History Hypertension Lung disease Social History Smoking Status: Never Smoker Smokeless Tobacco Use: No Alcohol Use: none Drug Use: none Marital Status: Housing status: lives with family Occupational Status: retired Immunizations History of Influenza Vaccine: Unknown History of Tetanus Vaccine?: Yes History of Pneumococcal: Unknown History of Hepatitis B Vaccine: Unknown Multi-Drug Resistant Organisms History of MDRO: No Allergies Coded Allergies: Erythromycin (Verified Allergy, Severe, NAUSEA, DRY HEAVES, 07/11/17) Levofloxacin (Verified Allergy, Severe, Anaphylaxis, 07/11/17) POLLEN (Verified Allergy, Intermediate, SHORTNESS OF BREATH, 07/11/17) Aspirin (Verified Allergy, Unknown, HIVES, 07/11/17) Fluticasone (Verified Adverse Reaction, Unknown, DIZZINESS, 07/11/17) Home Medications Scheduled Amoxicillin & Pot Clavulanate (Amoxicillin/Clavulanate P), 875 MG PO BIDM Cetirizine Hcl (Zyrtec), 10 MG PO QAM Fiber Laxative (Fiber Laxative), 1 TAB PO BID Fish Oil ([place]-3), 1 CAPSULE PO BID Fludrocortisone Acetate (Florinef), 0.1 MG PO DAILY Fluticasone Prop/Salmeterol (Advair Diskus 500/50 60 Dose), 1 PUFF INH BID Immune Globulin (Human) ([place]amm[place] Liquid), 1 DOSE INJ Q28D Lansoprazole (Prevacid), 30 MG PO HS Levothyroxine Sodium (Synthroid), 75 MCG PO Q2D Levothyroxine Sodium (Synthroid), 50 MCG PO Q2D Prednisone Tab (Prednisone), 10 MG PO DAILY Simvastatin (Zocor), 20 MG PO QPM Scheduled PRN Albuterol Hfa (Ventolin Hfa), 2 PUFFS INH Q4H PRN for SOB/Wheezing Albuterol Sulf (Proventil 0.083% 2.5MG/3ML), 2.5 MG INH QID PRN for SOB/Wheezing Triamcinolone Acetonide (Nasal (Nasacort Allergy 24Hr), 2 SPRAYS YARIEL QAM PRN for . Review of Systems Constitutional: + chills, No fever, No sweats, No weight loss, No fatigue Respiratory: No cough, No sputum, No wheezing, No shortness of breath, No dyspnea on exertion Cardiovascular: No chest pain, No orthopnea Abdomen: + pain, + nausea, No vomiting, No diarrhea, No constipation, No GI bleeding Genitourinary - Female: No dysuria Physical Exam Vital Signs Date Time Temp Pulse Resp B/P (MAP) Pulse Ox O2 Delivery O2 Flow Rate FiO2 07/11/17 19:44 97 140/75 96 Room Air 07/11/17 17:51 73 158/75 96 Room Air 07/11/17 16:44 77 07/11/17 16:39 36.6 70 159/84 97 Room Air General Appearance: WD/WN, no apparent distress Head: normocephalic, atraumatic Eyes: normal inspection, sclerae normal Neck: supple, no carotid bruits Respiratory/Chest: chest non-tender, lungs clear, normal breath sounds Cardiovascular: regular rate, rhythm, no edema, no gallop Abdomen/GI: normal bowel sounds, soft, + tenderness (in all 4 quadrants), + distended Extremities/Musculoskelatal: normal inspection, no calf tenderness Neurologic/Psych: alert, normal mood/affect, oriented x 3 Diagnostics Laboratory Results Results Past 24 Hours Test 07/11/17 17:32 Range/Units White Blood Count 26.52 4.8-10.8 K/uL Red Blood Count 4.78 4.2-5.4 M/uL Hemoglobin 13.0 12.0-16.0 g/dL Hematocrit 40.2 37-47 % Mean Corpuscular Volume 84.1 80-100 fL Mean Corpuscular Hemoglobin 27.2 25-34 pg Mean Corpuscular Hemoglobin Concent 32.3 32-36 g/dl Platelet Count 291 130-400 K/uL Mean Platelet Volume 11.3 7.4-10.4 fL Neutrophils (%) (Auto) 86.2 % Lymphocytes (%) (Auto) 7.8 % Monocytes (%) (Auto) 4.7 % Eosinophils (%) (Auto) 0.4 % Basophils (%) (Auto) 0.1 % Neutrophils # (Auto) 22.84 1.4-6.5 K/uL Lymphocytes # (Auto) 2.08 1.2-3.4 K/uL Monocytes # (Auto) 1.25 0.11-0.59 K/uL Eosinophils # (Auto) 0.11 0-0.5 K/uL Basophils # (Auto) 0.02 0-0.2 K/uL RDW Standard Deviation 56.9 36.4-46.3 fL RDW Coefficient of Variation 18.3 11.5-14.5 % Immature Granulocyte % (Auto) 0.8 % Immature Granulocyte # (Auto) 0.22 0.00-0.02 K/uL Anisocytosis PRESENT Ovalocytes 1+ Urine Color YELLOW Urine Appearance CLEAR CLEAR Urine pH 7.0 4.5-7.5 Urine Specific [place] 1.015 1.000-1.030 Urine Protein NEG NEG Urine Glucose (UA) NEG NEG Urine Ketones NEG NEG Urine Occult Blood NEG NEG Urine Nitrite NEG NEG Urine Bilirubin NEG NEG Urine Urobilinogen NEG NEG Urine Leukocyte Esterase NEG NEG Sodium Level 138 136-145 mmol/L Potassium Level 3.1 3.5-5.1 mmol/L Chloride Level 103 98-107 mmol/L Carbon Dioxide Level 25 21-32 mmol/L Anion Gap 9.0 3-11 mmol/L Blood Urea Nitrogen 18 7-18 mg/dl Creatinine 1.04 0.60-1.20 mg/dl Est Creatinine Clear Calc Drug Dose 57.4 ml/min Estimated GFR () 63.9 Estimated GFR (Non- 55.2 BUN/Creatinine Ratio 16.9 10-20 Random Glucose 112 70-99 mg/dl Calcium Level 9.7 8.5-10.1 mg/dl Total Bilirubin 0.5 0.2-1 mg/dl Direct Bilirubin 0.1 0-0.2 mg/dl Aspartate Amino Transf (AST/SGOT) 16 15-37 U/L Alanine Aminotransferase (ALT/SGPT) 31 12-78 U/L Alkaline Phosphatase 100 45-117 U/L Total Protein 7.3 6.4-8.2 gm/dl Albumin 2.9 3.4-5.0 gm/dl Lipase 116 73-393 U/L Impression Assessment and Plan 66 y/o female with a past medical history of Asthma, 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 1) Perforated Diverticulitis - Rocephin 1g IV daily - Flagyl 500mg q8h IV - NPO --> All medications converted to IV - General Surgery Consult --> Patient seen by Dr. Hay and at this time recommends conservative management - ID Consult --> Patient will need prolonged antibiotic therapy - IN NS + 20 meq K at 100mls/hr - Leukocytosis --> WBC 26.52 --> CBC qAM - Stress dose steroids - Hydrocortisone 50mg IV q8h - Admit to med/surg 2) Hypokalemia - K+ 3.1 - K+ IV 40mg + Supplementation in IV fluids - BMP qAM - Magnesium level ordered 3) Asthma - Resume home Albuterol and Advair 4) Hypothyroidism - Synthroid 25 mcg IV daily (converted from home PO dose) 5) GERD - Protonix 40mg IV daily 6) DVT Prophylaxis - SCDs 7) Code Status - Full Resuscitation Attending addendum: I have physically seen this patient, have supervised the medical residents activities, and agree with the H&P unless as otherwise noted. Assessment and Plan: Sigmoid diverticulitis with perforation-- Admit to the medical surgical floor Seen by Dr. Hay from general surgery in the ED The treatment plan will be long-term IV antibiotics probably followed by surgery Place on ceftriaxone 1 g IV daily, Flagyl 500 mg IV every 8 hours NS with KCl 20 mEq at 100 mils per hour Zofran 4 mg IV every 6 hours when necessary Pantoprazole 40 mg IV daily Morphine sulfate 2 mg IV every 2 hours when necessary Serial CBC with differential, CMP and magnesium levels. Immunoglobulin deficiency/chronic steroid use-- Stress dose steroids of hydrocortisone 50 mg IV every 8 hours, follow clinical exam closely. Level of Care Med/Surg Advanced Directives Existing Advance Directive: No Existing Living Will: No Existing Power of Clerk Of Works: No Resuscitation Status FULL RESUSCITATION VTE Prophylaxis VTE Risk Assessment Done? Y/N: Yes Risk Level: Moderate Given or contraindicated: SCD's, Contraindicated (due to possible surgical risk ) Resident Tracking Resident Involvement: Resident Care Provided Care Provided: Adult Hospital Medicine
[2017-07-11] MEDS ORDERED: ALBUTEROL HFA 8 GM INHALER INH PRN (21:00)
[2017-07-11] MEDS ORDERED: ALBUTEROL 0.083% NEBU SOLN 3 ML VIAL INH PRN (21:00)
[2017-07-11] MEDS ORDERED: TRIAMCINOLONE ACET NASAL SPRAY 10.8ML BTL NAE PRN (21:00)
[2017-07-11] MEDS: POTASSIUM CHLR 10MEQ / WTR IV SCH ×2 (21:16→22:40)
[2017-07-11 22:05] VITALS: BP 145/79; PULSE 90; TEMP 37.2; O2SAT 95; BMI 37.8
[2017-07-11 22:13] VITALS: BP 145/79; PULSE 90; TEMP 37.2; O2SAT 96
[2017-07-11] MEDS ORDERED: CEFTRIAXONE SOD INJ 1 GM in DEXTROSE 5% 50ML 50 ML IV ONE (23:00)
[2017-07-11] MEDS ORDERED: NURSING VERBAL MED ORDER ONE (23:15)
[2017-07-11 23:20] VITALS: BP 129/78; PULSE 84; TEMP 37.3; O2SAT 94
[2017-07-11] MEDS: FLUTICASONE/SALMETEROL (ADVAIR) 500/50 INH 14 PUFF INH SCH (23:21)
[2017-07-11] MEDS: NSS + 20MEQ KCL 1000ML 1,000 ML IV SCH (23:21)
[2017-07-11] MEDS: HYDROCORTISONE IV 50 MG in SYRINGE 0 ML IV SCH (23:22)
[2017-07-11] MEDS: POTASSIUM CHLR 10 MEQ / WTR 10 MEQ in PREMIXED WATER 100 ML IV SCH (23:22)
[2017-07-12] MEDS: POTASSIUM CHLR 10 MEQ / WTR 10 MEQ in PREMIXED WATER 100 ML IV SCH (00:55)
[2017-07-12] MEDS: METRONIDAZOLE / NSS 500 MG in PREMIXED NSS 100 ML IV SCH ×3 (00:58→17:32)
[2017-07-12] MEDS: MoRPHine SULFATE 4 MG/ML 1 ML CARP\\VIAL IV PRN ×2 (01:00→05:27)
[2017-07-12] MEDS: HYDROCORTISONE IV 50 MG in SYRINGE 0 ML IV SCH ×3 (05:28→21:59)
--- NOTE | 2017-07-12 06:43 | Surgery Progress Note ---
Surgery Progress Note Date of Service Jul 12, 2017. Subjective afeb, vss- has abd pain , clinically alert , in no distress Objective Vital Signs: Date Time Temp Pulse Resp B/P (MAP) Pulse Ox O2 Delivery O2 Flow Rate FiO2 07/11/17 23:35 Room Air 07/11/17 23:20 37.3 84 16 129/78 (95) 94 Room Air 07/11/17 22:15 Room Air 07/11/17 22:13 37.2 90 16 145/79 (101) 96 Room Air 07/11/17 22:05 37.2 90 16 145/79 95 Room Air 07/11/17 21:39 100 142/88 93 07/11/17 19:44 97 140/75 96 Room Air 07/11/17 17:51 73 158/75 96 Room Air 07/11/17 16:44 77 07/11/17 16:39 36.6 70 159/84 97 Room Air General Appearance: no apparent distress Neck: supple Respiratory/Chest: no respiratory distress Abdomen: non distended, soft, + tenderness (mostly lower abdomen) Laboratory Results: Results Past 24 Hours Test 07/11/17 17:32 07/12/17 05:58 Range/Units White Blood Count 26.52 4.8-10.8 K/uL Red Blood Count 4.78 4.2-5.4 M/uL Hemoglobin 13.0 12.0-16.0 g/dL Hematocrit 40.2 37-47 % Mean Corpuscular Volume 84.1 80-100 fL Mean Corpuscular Hemoglobin 27.2 25-34 pg Mean Corpuscular Hemoglobin Concent 32.3 32-36 g/dl Platelet Count 291 130-400 K/uL Mean Platelet Volume 11.3 7.4-10.4 fL Neutrophils (%) (Auto) 86.2 % Lymphocytes (%) (Auto) 7.8 % Monocytes (%) (Auto) 4.7 % Eosinophils (%) (Auto) 0.4 % Basophils (%) (Auto) 0.1 % Neutrophils # (Auto) 22.84 1.4-6.5 K/uL Lymphocytes # (Auto) 2.08 1.2-3.4 K/uL Monocytes # (Auto) 1.25 0.11-0.59 K/uL Eosinophils # (Auto) 0.11 0-0.5 K/uL Basophils # (Auto) 0.02 0-0.2 K/uL RDW Standard Deviation 56.9 36.4-46.3 fL RDW Coefficient of Variation 18.3 11.5-14.5 % Immature Granulocyte % (Auto) 0.8 % Immature Granulocyte # (Auto) 0.22 0.00-0.02 K/uL Anisocytosis PRESENT Ovalocytes 1+ Urine Color YELLOW Urine Appearance CLEAR CLEAR Urine pH 7.0 4.5-7.5 Urine Specific [place] 1.015 1.000-1.030 Urine Protein NEG NEG Urine Glucose (UA) NEG NEG Urine Ketones NEG NEG Urine Occult Blood NEG NEG Urine Nitrite NEG NEG Urine Bilirubin NEG NEG Urine Urobilinogen NEG NEG Urine Leukocyte Esterase NEG NEG Sodium Level 138 136-145 mmol/L Potassium Level 3.1 3.5-5.1 mmol/L Chloride Level 103 98-107 mmol/L Carbon Dioxide Level 25 21-32 mmol/L Anion Gap 9.0 3-11 mmol/L Blood Urea Nitrogen 18 7-18 mg/dl Creatinine 1.04 0.60-1.20 mg/dl Est Creatinine Clear Calc Drug Dose 57.4 ml/min Estimated GFR () 63.9 Estimated GFR (Non- 55.2 BUN/Creatinine Ratio 16.9 10-20 Random Glucose 112 70-99 mg/dl Calcium Level 9.7 8.5-10.1 mg/dl Magnesium Level 2.3 1.8-2.4 mg/dl Total Bilirubin 0.5 0.2-1 mg/dl Direct Bilirubin 0.1 0-0.2 mg/dl Aspartate Amino Transf (AST/SGOT) 16 15-37 U/L Alanine Aminotransferase (ALT/SGPT) 31 12-78 U/L Alkaline Phosphatase 100 45-117 U/L Total Protein 7.3 6.4-8.2 gm/dl Albumin 2.9 3.4-5.0 gm/dl Lipase 116 73-393 U/L Assessment & Plan 07/12/17- adm w/ diverticulitis, contained perf w/ gas , no overt abscess cont to monitor- IV atbx, ice only . check labs
[2017-07-12 06:55] LABS: BASO % 0.1 %; BASO ABS # 0.01 K/uL (0-0.2); EOS % 0.1 %; EOS ABS # 0.02 K/uL (0-0.5); HEMATOCRIT 34.1 % (37-47); HEMOGLOBIN 10.8 g/dL (12.0-16.0); LYMPH % 8.9 %; LYMPH ABS # 1.55 K/uL (1.2-3.4); MEAN CORPUSCULAR HEMOGLOBIN 26.6 pg (25-34); MEAN CORPUSCULAR HGB CONC 31.7 g/dl (32-36); MEAN PLATELET VOLUME 11.3 fL (7.4-10.4); MONO % 7.1 %; MONO ABS # 1.23 K/uL (0.11-0.59); NEUT % 83.2 %; NEUT ABS # 14.51 K/uL (1.4-6.5); PLATELET COUNT 231 K/uL (130-400); RED CELL DISTRIBUTION WIDTH CV 18.5 % (11.5-14.5); RED CELL DISTRIBUTION WIDTH SD 57.2 fL (36.4-46.3); WHITE BLOOD COUNT 17.42 K/uL (4.8-10.8)
[2017-07-12 07:19] LABS: CALCIUM 8.8 mg/dl (8.5-10.1); CREATININE 0.98 mg/dl (0.60-1.20); POTASSIUM 4.2 mmol/L (3.5-5.1)
[2017-07-12 07:40] VITALS: BP 132/80; PULSE 70; TEMP 36.9; O2SAT 93
[2017-07-12] MEDS ORDERED: LEVOTHYROXINE SODIUM 20 MCG/1 ML IM SCH (09:00)
[2017-07-12] MEDS: NSS + 20MEQ KCL 1000ML 1,000 ML IV SCH ×2 (09:56→21:18)
[2017-07-12] MEDS: FLUTICASONE/SALMETEROL (ADVAIR) 500/50 INH 14 PUFF INH SCH ×2 (09:57→21:18)
[2017-07-12] MEDS: LEVOTHYROXINE SODIUM INJ 25 MCG in SYRINGE 0 ML IV SCH (09:59)
[2017-07-12 10:37] VITALS: Ht 160 cm; Wt 96.9 kg
--- NOTE | 2017-07-12 11:07 | INFECT. DISEASE CONSULTATION ---
DATE OF CONSULTATION: 07/12/2017 HISTORY OF PRESENT ILLNESS: This is a 66-year-old female who was admitted to the hospital after she had worsening abdominal pain and distention. She also had fevers and shaking chills prior to admission. In the Emergency Room, she did undergo a CAT scan of the abdomen and pelvis, which did show evidence of diverticulitis in the sigmoid colon without any abscess or fluid collection. There is also a small pocket of free air consistent with a small perforation. She was evaluated by surgery in the Emergency Room and was felt to be nonoperative and she would be managed with IV antibiotics. Infectious diseases was consulted for antibiotic recommendations. She initially had a white blood cell count of 26 in the ER. This has improved to 17. She has been afebrile since admission to the hospital. She was placed on IV Rocephin and Flagyl. She is tolerating these antibiotics well. She was recently admitted to the hospital with a diagnosis of bronchitis and was placed on Augmentin. She was on Augmentin at the time of admission yesterday. She had been tolerating this well at home and denied any nausea, vomiting or diarrhea associated with her antibiotics. She does have AN ALLERGY TO LEVAQUIN, WHICH CAUSES ANAPHYLAXIS. She currently states she is feeling better. She is n.p.o. and does not have much of an appetite; however, she denies any nausea, vomiting or diarrhea. Her belly pain has improved, but is still complaining of some tenderness in the suprapubic area. She denies any chest pain, cough or shortness of breath. Her remaining review of systems is unremarkable. PAST MEDICAL HISTORY: Significant for asthma, bronchitis, GERD, history of DVT and PE, high cholesterol, hypertension, hypothyroidism, recent diagnosis of pneumonia and immunodeficiency. PAST SURGICAL HISTORY: Significant for breast biopsy, hysterectomy, knee replacement, and rotator cuff repair. FAMILY HISTORY: Noncontributory. SOCIAL HISTORY: Negative for tobacco use, alcohol use or drug use. ALLERGIES: SHE HAS ALLERGIES TO ERYTHROMYCIN, LEVAQUIN, ASPIRIN, AND FLUTICASONE. MEDICATIONS: Include Rocephin, Protonix, Synthroid, morphine, heparin, Flagyl, hydrocortisone, Ventolin, Advair, and Nasacort. PHYSICAL EXAMINATION: VITAL SIGNS: She is afebrile, pulse 70, respiratory rate 14, blood pressure 132/80, and oxygen saturation is 93%-96% on room air. GENERAL: She is awake, alert and oriented x3. She is in no acute distress. HEENT: Mucous membranes are moist. Extraocular muscles are intact. HEART: Regular. LUNGS: Clear bilaterally. ABDOMEN: Soft and nondistended. There is minimal suprapubic tenderness, right greater than left lower quadrant. There is no edema. SKIN: Without rash. LABORATORY STUDIES: CBC today reveals a white blood cell count of 17.4, hemoglobin 10.8, and platelets are 231. Chemistry panel reveals a sodium of 138, potassium 4.2, chloride 106, bicarbonate 25, BUN 15, creatinine 0.9, and glucose is 124. UA was negative. There is no micro to review. Imaging is as above. ASSESSMENT AND PLAN: Diverticulitis with small perforation. At this time, she is having a clinical improvement and will remain on Rocephin and Flagyl. She will likely be discharged on this. She does have a port in the left chest wall, which was placed in October. She likely can receive antibiotics for this. She will need in the range of 14 days of therapy. Thank you for this consultation.
[2017-07-12 11:19] VITALS: O2SAT 93
--- NOTE | 2017-07-12 11:20 | Progress Note ---
Progress Note Date of Service Jul 12, 2017. Progress Note ID Consult Dictated #[id number] A/P: 1.Diverticulitis with perforation 2. Leukocytosis -Continue current abx, + clinical response -Will need 14-21 days total -Will follow, thank you
[2017-07-12 11:35] VITALS: BP 112/64; PULSE 72; TEMP 36.6; O2SAT 93
[2017-07-12] MEDS: PANTOprazole INJ 40 MG in SYRINGE 0 ML IV SCH (11:37)
[2017-07-12 15:16] VITALS: BP 146/79; PULSE 74; TEMP 36.8; O2SAT 95
[2017-07-12] MEDS: MoRPHine SULFATE 2 MG/ML CARP IV PRN ×2 (16:19→21:22)
--- NOTE | 2017-07-12 21:11 | Family Medicine Progress Note ---
Progress Note Date of Service Jul 12, 2017. Subjective Pt evaluation today including: conversation w/ patient, physical exam, chart review, lab review, review of studies, review of inpatient medication list Pain: Patient reports moderate lower abdominal pain PO Intake: NPO Voiding: no voiding problems Patient reports moderate lower abdominal pain but states that it has improved since last evening. Constitutional: + weakness, No fever, No chills, No sweats, No weight loss, No fatigue, No problem reported ENT: + problem reported (dry mouth) Respiratory: No cough, No sputum, No wheezing, No shortness of breath, No dyspnea on exertion, No dyspnea at rest, No hemoptysis, No problem reported Cardiovascular: No chest pain, No orthopnea, No PND, No edema, No claudication, No palpitations, No problem reported Abdomen: + pain All Other Systems: Reviewed and Negative Medications Current Inpatient Medications Medications (Trade) Dose Ordered Sig/Ross Route Start Time Stop Time Status Last Admin Dose Admin Ceftriaxone Sodium 1 gm/ Dextrose 50 ml @ 100 mls/hr Q24H IV 07/12/17 23:00 07/22/17 17:59 Metronidazole 500 mg/Prmx 100 ml @ 100 mls/hr Q8H IV 07/12/17 02:00 07/22/17 01:59 07/12/17 17:32 100 MLS/HR Potassium Chloride/Sodium Chloride 1,000 ml @ 100 mls/hr Q10H IV 07/11/17 23:00 08/10/17 20:59 07/12/17 09:56 100 MLS/HR Albuterol (Ventolin Hfa Inhaler) 2 puffs Q4H PRN INH 07/11/17 21:00 08/10/17 20:59 Albuterol Sulfate (Ventolin 0.083% 2.5MG/3ML Neb) 2.5 mg QID PRN INH 07/11/17 21:00 08/10/17 20:59 Salmeterol Xinafoate/ Fluticasone (Advair Diskus 500/50 Inh) 1 puff BID INH 07/11/17 21:00 08/10/17 20:59 07/12/17 09:57 1 PUFF Triamcinolone Acetonide (Nasacort Allergy 24hr) 2 sprays QAM PRN YARIEL 07/11/17 21:00 08/10/17 20:59 Hydrocortisone Sodium Succinate 50 mg/Syringe 1 ml @ 4 mls/min Q8 IV 07/11/17 23:00 08/10/17 22:59 07/12/17 13:44 4 MLS/MIN Pantoprazole Sodium 40 mg/ Syringe 10 ml @ 5 mls/min DAILY@11 IV 07/12/17 11:00 08/11/17 10:59 07/12/17 11:37 5 MLS/MIN Levothyroxine Sodium 25 mcg/ Syringe 1.25 ml @ 2 mls/min DAILY@09 IV 07/12/17 09:00 08/11/17 08:59 07/12/17 09:59 2 MLS/MIN Heparin Sodium (Porcine) (Heparin 100 Unit/ml 5ml Flush) 5 ml PRN PRN IV 07/12/17 03:15 08/11/17 03:14 Morphine Sulfate (MoRPHine SULFATE INJ) 2 mg Q4H PRN IV 07/12/17 06:00 07/26/17 05:59 07/12/17 16:19 2 MG Objective Vital Signs Date Time Temp Pulse Resp B/P (MAP) Pulse Ox O2 Delivery O2 Flow Rate FiO2 07/12/17 15:16 36.8 74 18 146/79 (101) 95 Room Air 07/12/17 15:15 Room Air 07/12/17 11:35 36.6 72 14 112/64 (80) 93 Room Air 07/12/17 11:19 93 Room Air 07/12/17 07:40 36.9 70 14 132/80 (97) 93 Room Air 07/12/17 07:15 Room Air 07/11/17 23:35 Room Air 07/11/17 23:20 37.3 84 16 129/78 (95) 94 Room Air 07/11/17 22:15 Room Air 07/11/17 22:13 37.2 90 16 145/79 (101) 96 Room Air 07/11/17 22:05 37.2 90 16 145/79 95 Room Air 07/11/17 21:39 100 142/88 93 07/11/17 19:44 97 140/75 96 Room Air Physical Exam General Appearance: WD/WN, no apparent distress Eyes: normal inspection, PERRL, EOMI, sclerae normal ENT: normal ENT inspection, pharynx normal Neck: supple, no JVD, no carotid bruits, trachea midline Respiratory/Chest: chest non-tender, lungs clear, normal breath sounds, no respiratory distress, no accessory muscle use Cardiovascular: regular rate, rhythm, no edema, no gallop, no JVD, no murmur Abdomen: normal bowel sounds, soft, no organomegaly, no pulsatile mass, + tenderness (diffuse to light palpation) Extremities: normal range of motion, non-tender, normal inspection, no pedal edema, no calf tenderness 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, no motor/sensory deficits, alert, normal mood/affect, oriented x 3 Laboratory Results Last Resulted 07/12/17 05:58 Red Blood Count 4.06, Mean Corpuscular Volume 84.0, Mean Corpuscular Hemoglobin 26.6, Mean Corpuscular Hemoglobin Concent 31.7, Mean Platelet Volume 11.3, Neutrophils (%) (Auto) 83.2, Lymphocytes (%) (Auto) 8.9, Monocytes (%) (Auto) 7.1, Eosinophils (%) (Auto) 0.1, Basophils (%) (Auto) 0.1, Neutrophils # (Auto) 14.51, Lymphocytes # (Auto) 1.55, Monocytes # (Auto) 1.23, Eosinophils # (Auto) 0.02, Basophils # (Auto) 0.01 Last Resulted 07/12/17 05:58 Assessment and Plan 66 y/o female with a past medical history of Asthma, 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 1) Perforated Diverticulitis - Rocephin 1g IV, day 1 - Flagyl 500mg q8h IV, day 1 - NPO --> All medications converted to IV - General Surgery Consult --> Patient seen by Dr. Hay and at this time recommends conservative management - ID Consult --> Patient will need prolonged antibiotic therapy, 14+ days; continue on current regimen; has port if needed - IN NS + 20 meq K at 100mls/hr - Leukocytosis --> WBC 26.52 --> 17 CBC qAM - Stress dose steroids - Hydrocortisone 50mg IV q8h 2) Hypokalemia - K+ 3.1-->4.2 after K+ IV 40mg + Supplementation in IV fluids - BMP qAM - Magnesium level 2.3 3) Asthma - Resume home Albuterol and Advair 4) Hypothyroidism - Synthroid 25 mcg IV daily (converted from home PO dose) 5) GERD - Protonix 40mg IV daily DVTP: SCDs Code: Full Dispo: Med/surg Resident Tracking Resident Involvement: Resident Care Provided Care Provided: Adult Hospital Medicine Reviewed: Pt Seen/Exam by Me Constitutional: denies: fever Respiratory: negative: short of breath Gastrointestinal/Abdominal: positive: abdominal pain (still with lot of pain but better since admission) General Appearance: no apparent distress Respiratory: lungs clear, no respiratory distress Cardiovascular: regular rate, rhythm Gastrointestinal: normal bowel sounds, soft, tenderness (right mid and lower quadrant) Neurologic/Psychiatric: alert, oriented x 3 Skin Characteristics: warm/dry Assessment/Plan Resident Physician Supervision Note: I independently interviewed and examined the patient and verified the osman history and physical, reviewed labs and image studies, discussed the case with the resident Dr. Trivedi and agree with the findings and care plan.
[2017-07-12] MEDS ORDERED: NURSING VERBAL MED ORDER ONE (21:45)
[2017-07-12] MEDS: ONDANSETRON INJ 2 MG/ML 2 ML VIAL IV PRN (22:00)
[2017-07-12] MEDS: CEFTRIAXONE SOD INJ 1 GM in DEXTROSE 5% ADD-VANTAGE 50ML 50 ML IV SCH (22:32)
[2017-07-12 23:20] VITALS: BP 127/74; PULSE 81; TEMP 37; O2SAT 95
[2017-07-13] VITALS: O2SAT 93
[2017-07-13] MEDS: METRONIDAZOLE / NSS 500 MG in PREMIXED NSS 100 ML IV SCH ×3 (02:46→18:08)
[2017-07-13] MEDS: NSS + 20MEQ KCL 1000ML 1,000 ML IV SCH ×2 (05:14→15:12)
[2017-07-13] MEDS: HYDROCORTISONE IV 50 MG in SYRINGE 0 ML IV SCH ×3 (05:42→21:32)
[2017-07-13 07:09] VITALS: BP 164/89; PULSE 77; TEMP 36.6; O2SAT 93
[2017-07-13 07:13] LABS: HEMATOCRIT 32.2 % (37-47); HEMOGLOBIN 10.3 g/dL (12.0-16.0); MEAN CELL VOLUME 84.7 fL (80-100); MEAN CORPUSCULAR HEMOGLOBIN 27.1 pg (25-34); MEAN PLATELET VOLUME 10.6 fL (7.4-10.4); PLATELET COUNT 203 K/uL (130-400); RED CELL DISTRIBUTION WIDTH CV 18.7 % (11.5-14.5); RED CELL DISTRIBUTION WIDTH SD 58.5 fL (36.4-46.3); WHITE BLOOD COUNT 12.37 K/uL (4.8-10.8)
--- NOTE | 2017-07-13 07:43 | Surgery Progress Note ---
Surgery Progress Note Date of Service Jul 13, 2017. Subjective less pain, afeb, vitals stable- normal heart rate Objective Vital Signs: Date Time Temp Pulse Resp B/P (MAP) Pulse Ox O2 Delivery O2 Flow Rate FiO2 07/13/17 00:00 93 Room Air 07/12/17 23:20 37.0 81 16 127/74 (91) 95 Room Air 07/12/17 15:16 36.8 74 18 146/79 (101) 95 Room Air 07/12/17 15:15 Room Air 07/12/17 11:35 36.6 72 14 112/64 (80) 93 Room Air 07/12/17 11:19 93 Room Air 07/12/17 07:40 36.9 70 14 132/80 (97) 93 Room Air General Appearance: no apparent distress Respiratory/Chest: no respiratory distress Abdomen: soft, + pertinent finding (less pain to palpatioin) Laboratory Results: Results Past 24 Hours Test 07/13/17 07:02 Range/Units White Blood Count 12.37 4.8-10.8 K/uL Red Blood Count 3.80 4.2-5.4 M/uL Hemoglobin 10.3 12.0-16.0 g/dL Hematocrit 32.2 37-47 % Mean Corpuscular Volume 84.7 80-100 fL Mean Corpuscular Hemoglobin 27.1 25-34 pg Mean Corpuscular Hemoglobin Concent 32.0 32-36 g/dl RDW Standard Deviation 58.5 36.4-46.3 fL RDW Coefficient of Variation 18.7 11.5-14.5 % Platelet Count 203 130-400 K/uL Mean Platelet Volume 10.6 7.4-10.4 fL Assessment & Plan 07/13/17- seems to be stable- less abd pain, normal alert affect. limited po today- ice/ sips, IV atbx as per Dr Jacobs- 2 weeks IV via port- med treatment unit if continues to do well. Very slow adv of diet- possible clear tray tomorrow 07/12/17- adm w/ diverticulitis, contained perf w/ gas , no overt abscess cont to monitor- IV atbx, ice only . check labs 07/12/17- adm w/ diverticulitis, contained perf w/ gas , no overt abscess cont to monitor- IV atbx, ice only . check labs
[2017-07-13 07:44] LABS: CALCIUM 9.3 mg/dl (8.5-10.1); CREATININE 0.88 mg/dl (0.60-1.20)
[2017-07-13] MEDS ORDERED: ENOXAPARIN 40 MG/0.4 ML SYR SQ SCH (09:00)
[2017-07-13] MEDS: FLUTICASONE/SALMETEROL (ADVAIR) 500/50 INH 14 PUFF INH SCH ×2 (10:01→21:32)
[2017-07-13] MEDS: PANTOprazole INJ 40 MG in SYRINGE 0 ML IV SCH (10:09)
[2017-07-13] MEDS: LEVOTHYROXINE SODIUM INJ 25 MCG in SYRINGE 0 ML IV SCH (10:09)
--- NOTE | 2017-07-13 10:47 | Family Medicine Progress Note ---
Progress Note Date of Service Jul 13, 2017. Subjective Pt evaluation today including: conversation w/ patient, physical exam, chart review, lab review Pain: abdominal pain is improving every day PO Intake: Increased to liquids 250 ml max/3 hr, and popsicles Voiding: no voiding problems Patient states she is feeling much better, her pain is decreasing and her appetite is slowly coming down. She is eager to try a popsicle this morning. Constitutional: + fatigue, No fever, No chills, No sweats, No weight loss, No weakness, No problem reported Respiratory: No cough, No sputum, No wheezing, No shortness of breath, No dyspnea on exertion, No dyspnea at rest, No hemoptysis, No problem reported Cardiovascular: No chest pain, No orthopnea, No PND, No edema, No claudication, No palpitations, No problem reported Abdomen: + pain, No nausea, No vomiting, No diarrhea, No constipation, No GI bleeding, No problem reported Female : No dysuria, No urinary frequency, No hematuria, No incontinence, No abnormal vaginal bleeding, No vaginal discharge, No problem reported All Other Systems: Reviewed and Negative Medications Current Inpatient Medications Medications (Trade) Dose Ordered Sig/Ross Route Start Time Stop Time Status Last Admin Dose Admin Ceftriaxone Sodium 1 gm/ Dextrose 50 ml @ 100 mls/hr Q24H IV 07/12/17 23:00 07/22/17 17:59 07/12/17 22:32 100 MLS/HR Metronidazole 500 mg/Prmx 100 ml @ 100 mls/hr Q8H IV 07/12/17 02:00 07/22/17 01:59 07/13/17 02:46 100 MLS/HR Potassium Chloride/Sodium Chloride 1,000 ml @ 100 mls/hr Q10H IV 07/11/17 23:00 08/10/17 20:59 07/13/17 05:14 100 MLS/HR Albuterol (Ventolin Hfa Inhaler) 2 puffs Q4H PRN INH 07/11/17 21:00 08/10/17 20:59 Albuterol Sulfate (Ventolin 0.083% 2.5MG/3ML Neb) 2.5 mg QID PRN INH 07/11/17 21:00 08/10/17 20:59 Salmeterol Xinafoate/ Fluticasone (Advair Diskus 500/50 Inh) 1 puff BID INH 07/11/17 21:00 08/10/17 20:59 07/12/17 21:18 1 PUFF Triamcinolone Acetonide (Nasacort Allergy 24hr) 2 sprays QAM PRN YARIEL 07/11/17 21:00 08/10/17 20:59 Hydrocortisone Sodium Succinate 50 mg/Syringe 1 ml @ 4 mls/min Q8 IV 07/11/17 23:00 08/10/17 22:59 07/13/17 05:42 4 MLS/MIN Pantoprazole Sodium 40 mg/ Syringe 10 ml @ 5 mls/min DAILY@11 IV 07/12/17 11:00 08/11/17 10:59 07/12/17 11:37 5 MLS/MIN Levothyroxine Sodium 25 mcg/ Syringe 1.25 ml @ 2 mls/min DAILY@09 IV 07/12/17 09:00 08/11/17 08:59 07/12/17 09:59 2 MLS/MIN Heparin Sodium (Porcine) (Heparin 100 Unit/ml 5ml Flush) 5 ml PRN PRN IV 07/12/17 03:15 08/11/17 03:14 Morphine Sulfate (MoRPHine SULFATE INJ) 2 mg Q4H PRN IV 07/12/17 06:00 07/26/17 05:59 07/12/17 21:22 2 MG Ondansetron HCl (Zofran Inj) 4 mg Q6H PRN IV 07/12/17 22:00 08/11/17 21:59 07/12/17 22:00 4 MG Objective Vital Signs Date Time Temp Pulse Resp B/P (MAP) Pulse Ox O2 Delivery O2 Flow Rate FiO2 07/13/17 00:00 93 Room Air 07/12/17 23:20 37.0 81 16 127/74 (91) 95 Room Air 07/12/17 15:16 36.8 74 18 146/79 (101) 95 Room Air 07/12/17 15:15 Room Air 07/12/17 11:35 36.6 72 14 112/64 (80) 93 Room Air 07/12/17 11:19 93 Room Air 07/12/17 07:40 36.9 70 14 132/80 (97) 93 Room Air 07/12/17 07:15 Room Air Physical Exam General Appearance: WD/WN, no apparent distress Eyes: normal inspection, PERRL, EOMI, sclerae normal ENT: hearing grossly normal, pharynx normal Neck: supple, no adenopathy, thyroid normal, no JVD, no carotid bruits, trachea midline Respiratory/Chest: chest non-tender, lungs clear, normal breath sounds, no respiratory distress, no accessory muscle use Cardiovascular: regular rate, rhythm, no edema, no gallop, no JVD, no murmur Abdomen: normal bowel sounds, soft, no pulsatile mass, + distended, + tenderness Extremities: non-tender, normal inspection, no pedal edema, no calf tenderness 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, no motor/sensory deficits, alert, normal mood/affect, oriented x 3 Skin: normal color, warm/dry, no rash Laboratory Results Last Resulted 07/13/17 07:02 Last Resulted 07/13/17 07:02 Past 24 Hours Test 07/13/17 08:49 Range/Units Prothromb Time International Ratio 1.0 0.9-1.1 Prothrombin Time 10.1 9.0-12.0 SECONDS Assessment and Plan 66 y/o female with a past medical history of Asthma, 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 Perforated Diverticulitis - Rocephin 1g IV, day 2, Flagyl 500mg q8h IV, day 2 - All medications converted to IV - General Surgery Consult --> continue conservative management - Diet: oral fluids to 250mL/3 hr max plus popsicles, possible clear tray tomorrow - ID Consult --> Patient will need prolonged antibiotic therapy, 14+ days; continue on current regimen; has port if needed for [facility] Rx on D/C - IN NS + 20 meq K at 100mls/hr - Leukocytosis --> WBC improved to 12 today; CBC qAM Adrenal insufficiency - Stress dose steroids - Hydrocortisone 50mg IV q8h Hypokalemia - K+ 4.0 today - BMP qAM - Magnesium level 2.3 Asthma - Resume home Albuterol and Advair Hypothyroidism - Synthroid 25 mcg IV daily (converted from home PO dose) GERD - Protonix 40mg IV daily DVTP: SCDs Code: Full Dispo: Med/surg; *Case mgmt will need Rx for any outpatient IV Abx req'd to set up pt in [facility] on D /C* Resident Tracking Resident Involvement: Resident Care Provided Care Provided: Adult Hospital Medicine Reviewed: Pt Seen/Exam by Me History abdominal pain much improved Constitutional: denies: fever Respiratory: negative: short of breath Cardiovascular: denies chest pain General Appearance: no apparent distress (sitting at the edge of bed) Respiratory: lungs clear, no respiratory distress Cardiovascular: regular rate, rhythm Gastrointestinal: normal bowel sounds, soft, tenderness (mild left lower quadrant) Neurologic/Psychiatric: alert, oriented x 3 Assessment/Plan Resident Physician Supervision Note: I independently interviewed and examined the patient and verified the osman history and physical, reviewed labs and image studies, discussed the case with the resident Dr. Trivedi and agree with the findings and care plan.
[2017-07-13 11:25] VITALS: BP 153/79
[2017-07-13] MEDS: ONDANSETRON INJ 2 MG/ML 2 ML VIAL IV PRN (13:01)
--- NOTE | 2017-07-13 14:48 | Progress Note ---
Subjective Date of Service: Jul 13, 2017. Subjective Pt evaluation today including: conversation w/ patient, physical exam, chart review, lab review pt had some clear sips today, worsening abd pain and nausea, s/p zofran, feeling better now. Not eating. no f/c. no gu complaints. tolerating abx. wbc improved. all remaining ros reviewed and are negative. Problem List Medical Problems: (1) Ankle pain Status: Acute (2) Asthma exacerbation Status: Acute (3) Closed head injury Status: Acute (4) Diverticulitis of colon with perforation Status: Acute (5) Forearm laceration Status: Acute (6) Fracture of fifth metatarsal bone of left foot Status: Acute (7) Hypoxia Status: Acute (8) Left lower lobe pneumonia Status: Acute (9) Syncope Status: Acute (10) Syncope Status: Acute (11) Syncope Status: Acute Objective Vital Signs Date Time Temp Pulse Resp B/P (MAP) Pulse Ox O2 Delivery O2 Flow Rate FiO2 07/13/17 11:25 153/79 (103) 07/13/17 07:15 Room Air 07/13/17 07:09 36.6 77 16 164/89 (114) 93 Room Air 07/13/17 00:00 93 Room Air 07/12/17 23:20 37.0 81 16 127/74 (91) 95 Room Air 07/12/17 15:16 36.8 74 18 146/79 (101) 95 Room Air 07/12/17 15:15 Room Air Physical Exam General Appearance: WD/WN, no apparent distress Eyes: normal inspection, EOMI Neck: supple Respiratory/Chest: lungs clear, normal breath sounds, no respiratory distress Cardiovascular: regular rate, rhythm, no edema Abdomen: non tender, soft Extremities: non-tender, no pedal edema Neurologic/Psychiatric: alert, oriented x 3 Skin: normal color Comments: left port c/d/i Laboratory Results Last 24 Hours Test 07/13/17 07:02 07/13/17 08:49 White Blood Count 12.37 K/uL Red Blood Count 3.80 M/uL Hemoglobin 10.3 g/dL Hematocrit 32.2 % Mean Corpuscular Volume 84.7 fL Mean Corpuscular Hemoglobin 27.1 pg Mean Corpuscular Hemoglobin Concent 32.0 g/dl RDW Standard Deviation 58.5 fL RDW Coefficient of Variation 18.7 % Platelet Count 203 K/uL Mean Platelet Volume 10.6 fL Sodium Level 138 mmol/L Potassium Level 4.0 mmol/L Chloride Level 110 mmol/L Carbon Dioxide Level 22 mmol/L Anion Gap 6.0 mmol/L Blood Urea Nitrogen 13 mg/dl Creatinine 0.88 mg/dl Est Creatinine Clear Calc Drug Dose 67.8 ml/min Estimated GFR () 78.2 Estimated GFR (Non- 67.5 BUN/Creatinine Ratio 14.8 Random Glucose 110 mg/dl Calcium Level 9.3 mg/dl Prothrombin Time 10.1 SECONDS Prothromb Time International Ratio 1.0 Activated Partial Thromboplast Time 24.0 SECONDS Partial Thromboplastin Ratio 0.9 Assessment and Plan (1) Diverticulitis of colon with perforation Assessment & Plan: continue with current IV abx, 14 days total
[2017-07-13 15:28] VITALS: BP 175/101; PULSE 78; TEMP 36.6; O2SAT 97
[2017-07-13 18:59] VITALS: BP 136/77
[2017-07-13] MEDS: CEFTRIAXONE SOD INJ 1 GM in DEXTROSE 5% ADD-VANTAGE 50ML 50 ML IV SCH (22:56)
[2017-07-13 23:23] VITALS: BP 136/69; PULSE 83; TEMP 36.8; O2SAT 94
[2017-07-14] MEDS: NSS + 20MEQ KCL 1000ML 1,000 ML IV SCH ×2 (01:35→11:31)
[2017-07-14] MEDS: METRONIDAZOLE / NSS 500 MG in PREMIXED NSS 100 ML IV SCH ×3 (01:35→18:03)
[2017-07-14] MEDS: HYDROCORTISONE IV 50 MG in SYRINGE 0 ML IV SCH (05:29)
--- NOTE | 2017-07-14 06:32 | Surgery Progress Note ---
Surgery Progress Note Date of Service Jul 14, 2017. Subjective feeling better, loose bm, flatus mild improvement in pain Objective Vital Signs: Date Time Temp Pulse Resp B/P (MAP) Pulse Ox O2 Delivery O2 Flow Rate FiO2 07/13/17 23:23 36.8 83 18 136/69 (91) 94 Room Air 07/13/17 20:10 Room Air 07/13/17 18:59 136/77 (96) 07/13/17 15:40 Room Air 07/13/17 15:28 36.6 78 18 175/101 (125) 97 Room Air 07/13/17 11:25 153/79 (103) 07/13/17 07:15 Room Air 07/13/17 07:09 36.6 77 16 164/89 (114) 93 Room Air General Appearance: no apparent distress Respiratory/Chest: no respiratory distress Abdomen: normal bowel sounds, soft, + pertinent finding (mild lower abd tenderness) Laboratory Results: Results Past 24 Hours Test 07/13/17 07:02 07/13/17 08:49 07/14/17 04:44 Range/Units White Blood Count 12.37 4.8-10.8 K/uL Red Blood Count 3.80 4.2-5.4 M/uL Hemoglobin 10.3 12.0-16.0 g/dL Hematocrit 32.2 37-47 % Mean Corpuscular Volume 84.7 80-100 fL Mean Corpuscular Hemoglobin 27.1 25-34 pg Mean Corpuscular Hemoglobin Concent 32.0 32-36 g/dl RDW Standard Deviation 58.5 36.4-46.3 fL RDW Coefficient of Variation 18.7 11.5-14.5 % Platelet Count 203 130-400 K/uL Mean Platelet Volume 10.6 7.4-10.4 fL Sodium Level 138 136-145 mmol/L Potassium Level 4.0 3.5-5.1 mmol/L Chloride Level 110 98-107 mmol/L Carbon Dioxide Level 22 21-32 mmol/L Anion Gap 6.0 3-11 mmol/L Blood Urea Nitrogen 13 7-18 mg/dl Creatinine 0.88 0.60-1.20 mg/dl Est Creatinine Clear Calc Drug Dose 67.8 ml/min Estimated GFR () 78.2 Estimated GFR (Non- 67.5 BUN/Creatinine Ratio 14.8 10-20 Random Glucose 110 70-99 mg/dl Calcium Level 9.3 8.5-10.1 mg/dl Prothrombin Time 10.1 9.0-12.0 SECONDS Prothromb Time International Ratio 1.0 0.9-1.1 Activated Partial Thromboplast Time 24.0 21.0-31.0 SECONDS Partial Thromboplastin Ratio 0.9 Assessment & Plan 07/14/17- will try clear liquids, cont Iv atbx as ordered. Continue in hospital care 2-3 days- plan to d/c on IV atbx via port in Med treatment unit as outpt 07/13/17- seems to be stable- less abd pain, normal alert affect. limited po today- ice/ sips, IV atbx as per Dr Jacobs- 2 weeks IV via port- med treatment unit if continues to do well. Very slow adv of diet- possible clear tray tomorrow 07/12/17- adm w/ diverticulitis, contained perf w/ gas , no overt abscess cont to monitor- IV atbx, ice only . check labs 07/13/17- seems to be stable- less abd pain, normal alert affect. limited po today- ice/ sips, IV atbx as per Dr Jacobs- 2 weeks IV via port- med treatment unit if continues to do well. Very slow adv of diet- possible clear tray tomorrow 07/12/17- adm w/ diverticulitis, contained perf w/ gas , no overt abscess cont to monitor- IV atbx, ice only . check labs
[2017-07-14 06:58] VITALS: BP 137/80; PULSE 50; TEMP 36.5; O2SAT 95
[2017-07-14 08:36] LABS: BASO % 0.1 %; BASO ABS # 0.01 K/uL (0-0.2); EOS % 0.4 %; EOS ABS # 0.04 K/uL (0-0.5); HEMATOCRIT 34.1 % (37-47); HEMOGLOBIN 10.9 g/dL (12.0-16.0); IG# 0.12 K/uL (0.00-0.02); LYMPH % 11.5 %; LYMPH ABS # 1.21 K/uL (1.2-3.4); MEAN CELL VOLUME 83.8 fL (80-100); MEAN CORPUSCULAR HEMOGLOBIN 26.8 pg (25-34); MEAN PLATELET VOLUME 11.7 fL (7.4-10.4); MONO % 6.1 %; MONO ABS # 0.64 K/uL (0.11-0.59); NEUT % 80.8 %; NEUT ABS # 8.51 K/uL (1.4-6.5); PLATELET COUNT 195 K/uL (130-400); RED CELL DISTRIBUTION WIDTH CV 18.5 % (11.5-14.5); RED CELL DISTRIBUTION WIDTH SD 57.6 fL (36.4-46.3); WHITE BLOOD COUNT 10.53 K/uL (4.8-10.8)
[2017-07-14 09:02] LABS: CALCIUM 9.6 mg/dl (8.5-10.1); CREATININE 0.73 mg/dl (0.60-1.20); POTASSIUM 3.9 mmol/L (3.5-5.1)
[2017-07-14] MEDS: LEVOTHYROXINE SODIUM INJ 25 MCG in SYRINGE 0 ML IV SCH (09:04)
[2017-07-14] MEDS: FLUTICASONE/SALMETEROL (ADVAIR) 500/50 INH 14 PUFF INH SCH ×2 (09:04→21:10)
--- NOTE | 2017-07-14 09:50 | Progress Note ---
Subjective Date of Service: Jul 14, 2017. Subjective Pt evaluation today including: conversation w/ patient, physical exam, chart review, lab review pt seen in followup, she is feeling much better today, no abd pain, no difficulty with urination. no f/c. tolerating IV abx, pt states she has plans to continue with abx at d/c at [facility]. wbc nml. eating clears on my exam, no n/v/d/ abd pain. oob to chair. no complaints. all remaining ros reviewed and are negative. Problem List Medical Problems: (1) Ankle pain Status: Acute (2) Asthma exacerbation Status: Acute (3) Closed head injury Status: Acute (4) Diverticulitis of colon with perforation Status: Acute (5) Forearm laceration Status: Acute (6) Fracture of fifth metatarsal bone of left foot Status: Acute (7) Hypoxia Status: Acute (8) Left lower lobe pneumonia Status: Acute (9) Syncope Status: Acute (10) Syncope Status: Acute (11) Syncope Status: Acute Objective Vital Signs Date Time Temp Pulse Resp B/P (MAP) Pulse Ox O2 Delivery O2 Flow Rate FiO2 07/14/17 06:58 36.5 50 16 137/80 (99) 95 Room Air 07/13/17 23:23 36.8 83 18 136/69 (91) 94 Room Air 07/13/17 20:10 Room Air 07/13/17 18:59 136/77 (96) 07/13/17 15:40 Room Air 07/13/17 15:28 36.6 78 18 175/101 (125) 97 Room Air 07/13/17 11:25 153/79 (103) Physical Exam General Appearance: WD/WN, no apparent distress Eyes: normal inspection, EOMI Neck: supple Respiratory/Chest: lungs clear, normal breath sounds, no respiratory distress Cardiovascular: regular rate, rhythm, no edema Abdomen: non tender, soft Extremities: non-tender, no pedal edema Neurologic/Psychiatric: alert, oriented x 3 Skin: normal color, no rash Laboratory Results Last 24 Hours Test 07/14/17 07:53 White Blood Count 10.53 K/uL Red Blood Count 4.07 M/uL Hemoglobin 10.9 g/dL Hematocrit 34.1 % Mean Corpuscular Volume 83.8 fL Mean Corpuscular Hemoglobin 26.8 pg Mean Corpuscular Hemoglobin Concent 32.0 g/dl Platelet Count 195 K/uL Mean Platelet Volume 11.7 fL Neutrophils (%) (Auto) 80.8 % Lymphocytes (%) (Auto) 11.5 % Monocytes (%) (Auto) 6.1 % Eosinophils (%) (Auto) 0.4 % Basophils (%) (Auto) 0.1 % Neutrophils # (Auto) 8.51 K/uL Lymphocytes # (Auto) 1.21 K/uL Monocytes # (Auto) 0.64 K/uL Eosinophils # (Auto) 0.04 K/uL Basophils # (Auto) 0.01 K/uL RDW Standard Deviation 57.6 fL RDW Coefficient of Variation 18.5 % Immature Granulocyte % (Auto) 1.1 % Immature Granulocyte # (Auto) 0.12 K/uL Sodium Level 141 mmol/L Potassium Level 3.9 mmol/L Chloride Level 111 mmol/L Carbon Dioxide Level 20 mmol/L Anion Gap 10.0 mmol/L Blood Urea Nitrogen 13 mg/dl Creatinine 0.73 mg/dl Est Creatinine Clear Calc Drug Dose 81.7 ml/min Estimated GFR () 98.1 Estimated GFR (Non- 84.6 BUN/Creatinine Ratio 17.4 Random Glucose 93 mg/dl Calcium Level 9.6 mg/dl Assessment and Plan (1) Diverticulitis of colon with perforation Assessment & Plan: continue with current IV abx, 14 days total, can change flagyl to po upon d/c. maintain IV for now while not on full diet. ok for d/c from ID standpoint when otherwise stable.
[2017-07-14] MEDS: PANTOprazole INJ 40 MG in SYRINGE 0 ML IV SCH (11:30)
[2017-07-14 15:00] VITALS: BP_SYST 109; BP_SYST 176; BP_DIAS 73; BP_DIAS 95; PULSE 67; TEMP 36.6; O2SAT 95; O2SAT 96
--- NOTE | 2017-07-14 18:45 | Family Medicine Progress Note ---
Progress Note Date of Service Jul 14, 2017. Subjective Pt evaluation today including: conversation w/ patient, physical exam, chart review, lab review, review of inpatient medication list Pain: Improving, now localized to epigastrium PO Intake: Full liquid diet, slow progression Voiding: no voiding problems Patient continues to feel better daily. she is sitting in bedside chair, ambulating well. And pain has improved daily. She is starting to get her appetite back. Constitutional: + see HPI, No fever, No chills, No sweats, No weight loss, No weakness, No fatigue, No problem reported Respiratory: No cough, No sputum, No wheezing, No shortness of breath, No dyspnea on exertion, No dyspnea at rest, No hemoptysis, No problem reported Cardiovascular: No chest pain, No orthopnea, No PND, No edema, No claudication, No palpitations, No problem reported Abdomen: + pain All Other Systems: Reviewed and Negative Medications Current Inpatient Medications Medications (Trade) Dose Ordered Sig/Ross Route Start Time Stop Time Status Last Admin Dose Admin Ceftriaxone Sodium 1 gm/ Dextrose 50 ml @ 100 mls/hr Q24H IV 07/12/17 23:00 07/22/17 17:59 07/13/17 22:56 100 MLS/HR Metronidazole 500 mg/Prmx 100 ml @ 100 mls/hr Q8H IV 07/12/17 02:00 07/22/17 01:59 07/14/17 01:35 100 MLS/HR Potassium Chloride/Sodium Chloride 1,000 ml @ 100 mls/hr Q10H IV 07/11/17 23:00 08/10/17 20:59 07/14/17 01:35 100 MLS/HR Albuterol (Ventolin Hfa Inhaler) 2 puffs Q4H PRN INH 07/11/17 21:00 08/10/17 20:59 Albuterol Sulfate (Ventolin 0.083% 2.5MG/3ML Neb) 2.5 mg QID PRN INH 07/11/17 21:00 08/10/17 20:59 Salmeterol Xinafoate/ Fluticasone (Advair Diskus 500/50 Inh) 1 puff BID INH 07/11/17 21:00 08/10/17 20:59 07/13/17 21:32 1 PUFF Triamcinolone Acetonide (Nasacort Allergy 24hr) 2 sprays QAM PRN YARIEL 07/11/17 21:00 08/10/17 20:59 Hydrocortisone Sodium Succinate 50 mg/Syringe 1 ml @ 4 mls/min Q8 IV 07/11/17 23:00 08/10/17 22:59 07/14/17 05:29 4 MLS/MIN Pantoprazole Sodium 40 mg/ Syringe 10 ml @ 5 mls/min DAILY@11 IV 07/12/17 11:00 08/11/17 10:59 07/13/17 10:09 5 MLS/MIN Levothyroxine Sodium 25 mcg/ Syringe 1.25 ml @ 2 mls/min DAILY@09 IV 07/12/17 09:00 08/11/17 08:59 07/13/17 10:09 2 MLS/MIN Heparin Sodium (Porcine) (Heparin 100 Unit/ml 5ml Flush) 5 ml PRN PRN IV 07/12/17 03:15 08/11/17 03:14 Morphine Sulfate (MoRPHine SULFATE INJ) 2 mg Q4H PRN IV 07/12/17 06:00 07/26/17 05:59 07/12/17 21:22 2 MG Ondansetron HCl (Zofran Inj) 4 mg Q6H PRN IV 07/12/17 22:00 08/11/17 21:59 07/13/17 13:01 4 MG Acetaminophen/ Hydrocodone Bitart ([place] 5/325 Tab) 1 tab Q4 PRN PO 07/15/17 06:30 07/29/17 06:29 Acetaminophen/ Hydrocodone Bitart ([place] 5/325 Tab) 2 tab Q4 PRN PO 07/15/17 06:30 07/29/17 06:29 Objective Vital Signs Date Time Temp Pulse Resp B/P (MAP) Pulse Ox O2 Delivery O2 Flow Rate FiO2 07/14/17 06:58 36.5 50 16 137/80 (99) 95 Room Air 07/13/17 23:23 36.8 83 18 136/69 (91) 94 Room Air 07/13/17 20:10 Room Air 07/13/17 18:59 136/77 (96) 07/13/17 15:40 Room Air 07/13/17 15:28 36.6 78 18 175/101 (125) 97 Room Air 07/13/17 11:25 153/79 (103) Physical Exam General Appearance: WD/WN, no apparent distress Eyes: normal inspection, PERRL, EOMI ENT: hearing grossly normal, pharynx normal Neck: supple, no adenopathy, thyroid normal, no JVD, no carotid bruits, trachea midline Respiratory/Chest: chest non-tender, lungs clear, normal breath sounds, no respiratory distress, no accessory muscle use Cardiovascular: regular rate, rhythm, no edema, no gallop, no JVD, no murmur Abdomen: normal bowel sounds, soft, no organomegaly, no pulsatile mass, + distended, + tenderness Extremities: normal range of motion, non-tender, normal inspection, no pedal edema Neurologic/Psychiatric: heel shaper II-XII nml as tested, no motor/sensory deficits, alert, normal mood/affect, oriented x 3 Skin: normal color, warm/dry, no rash Laboratory Results Last Resulted 07/14/17 07:53 Red Blood Count 4.07, Mean Corpuscular Volume 83.8, Mean Corpuscular Hemoglobin 26.8, Mean Corpuscular Hemoglobin Concent 32.0, Mean Platelet Volume 11.7, Neutrophils (%) (Auto) 80.8, Lymphocytes (%) (Auto) 11.5, Monocytes (%) (Auto) 6.1, Eosinophils (%) (Auto) 0.4, Basophils (%) (Auto) 0.1, Neutrophils # (Auto) 8.51, Lymphocytes # (Auto) 1.21, Monocytes # (Auto) 0.64, Eosinophils # (Auto) 0.04, Basophils # (Auto) 0.01 Last Resulted 07/14/17 07:53 Assessment and Plan 66 y/o female with a past medical history of Asthma, 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 Perforated Diverticulitis - Rocephin 1g IV, day 3, Flagyl 500mg q8h IV, day 3 - General Surgery Consult --> continue conservative management - Diet: clear liquids today - ID Consult --> 14 days total, can switch flagyl to PO on discharge; has port if needed for [facility] Rx on D/C - IN NS + 20 meq K cut to 50mls/hr - Leukocytosis --> WBC improved to 10 today; CBC qAM Autonomic dysfunction requiring florinef - Received Stress dose steroids. Now switch back to home dose of Florinef 0.1 daily Hypokalemia - K+ 3.9 today - BMP qAM - Magnesium level 2.3 Asthma - Resume home Albuterol and Advair Hypothyroidism - Synthroid 25 mcg IV daily (converted from home PO dose) GERD - Protonix 40mg IV daily DVTP: SCDs Code: Full Dispo: Med/surg; *Case mgmt will need Rx for any outpatient IV Abx req'd to set up pt in [facility] on D /C* Resident Tracking Resident Involvement: Resident Care Provided Care Provided: Adult Hospital Medicine Reviewed: Pt Seen/Exam by Me History sitting in chair. feeling much better. Constitutional: denies: fever Respiratory: negative: short of breath Cardiovascular: denies chest pain Gastrointestinal/Abdominal: positive: abdominal pain (mild ) General Appearance: no apparent distress Respiratory: lungs clear, no respiratory distress Cardiovascular: regular rate, rhythm Gastrointestinal: normal bowel sounds, soft, tenderness (mid abdomen) Neurologic/Psychiatric: alert, oriented x 3 Assessment/Plan Resident Physician Supervision Note: I independently interviewed and examined the patient and verified the osman history and physical, reviewed labs and image studies, discussed the case with the resident Dr. Trivedi and agree with the findings and care plan.
[2017-07-14] MEDS: CEFTRIAXONE SOD INJ 1 GM in DEXTROSE 5% ADD-VANTAGE 50ML 50 ML IV SCH (22:39)
[2017-07-14 22:50] VITALS: BP 159/90; PULSE 74; TEMP 36.4; O2SAT 96
[2017-07-15] MEDS: METRONIDAZOLE / NSS 500 MG in PREMIXED NSS 100 ML IV SCH ×3 (01:36→18:31)
[2017-07-15] MEDS ORDERED: HYDROCODONE/ACETAMOPHEN 5/325MG TAB PO PRN ×2 (06:30)
[2017-07-15 07:35] VITALS: BP 156/89; PULSE 62; TEMP 36.7; O2SAT 97
[2017-07-15 08:13] LABS: HEMATOCRIT 32.5 % (37-47); HEMOGLOBIN 10.6 g/dL (12.0-16.0); MEAN CELL VOLUME 83.8 fL (80-100); MEAN CORPUSCULAR HEMOGLOBIN 27.3 pg (25-34); MEAN CORPUSCULAR HGB CONC 32.6 g/dl (32-36); MEAN PLATELET VOLUME 11.2 fL (7.4-10.4); PLATELET COUNT 212 K/uL (130-400); RED CELL DISTRIBUTION WIDTH CV 18.5 % (11.5-14.5); RED CELL DISTRIBUTION WIDTH SD 57.4 fL (36.4-46.3); WHITE BLOOD COUNT 10.81 K/uL (4.8-10.8)
[2017-07-15] MEDS: NSS + 20MEQ KCL 1000ML 1,000 ML IV SCH (08:27)
[2017-07-15] MEDS: FLUTICASONE/SALMETEROL (ADVAIR) 500/50 INH 14 PUFF INH SCH ×2 (08:27→21:12)
[2017-07-15] MEDS: FLUDROCORTISONE ACETATE 0.1 MG TAB PO SCH (08:28)
[2017-07-15 08:56] LABS: CREATININE 0.8 mg/dl (0.60-1.20)
[2017-07-15] MEDS ORDERED: LORAZEPAM 0.5 MG TAB PO ONE (09:15)
[2017-07-15] MEDS: PANTOprazole INJ 40 MG in SYRINGE 0 ML IV SCH (09:30)
[2017-07-15] MEDS: ONDANSETRON INJ 2 MG/ML 2 ML VIAL IV PRN (09:39)
--- NOTE | 2017-07-15 09:46 | Family Medicine Progress Note ---
Progress Note Date of Service Jul 15, 2017. Subjective Pt evaluation today including: conversation w/ patient, physical exam, chart review, lab review Voiding: no voiding problems Pt reports having gas and crampy abdominal pain yesterday. The patient was started on clear liquid diet yesterday. She says that the pain kept her up at night. Patient has not had a bowel movement in a number of days, denies blood per rectum, reports passing gas. Constitutional: No fever, No chills Respiratory: No cough, No shortness of breath Cardiovascular: No chest pain Abdomen: + pain, No nausea, No vomiting, No diarrhea, No GI bleeding Female : No dysuria Endo: + fatigue Medications Current Inpatient Medications Medications (Trade) Dose Ordered Sig/Ross Route Start Time Stop Time Status Last Admin Dose Admin Ceftriaxone Sodium 1 gm/ Dextrose 50 ml @ 100 mls/hr Q24H IV 07/12/17 23:00 07/22/17 17:59 07/14/17 22:39 100 MLS/HR Metronidazole 500 mg/Prmx 100 ml @ 100 mls/hr Q8H IV 07/12/17 02:00 07/22/17 01:59 07/15/17 09:39 100 MLS/HR Potassium Chloride/Sodium Chloride 1,000 ml @ 50 mls/hr Q20H IV 07/11/17 23:00 08/10/17 20:59 07/15/17 08:27 50 MLS/HR Albuterol (Ventolin Hfa Inhaler) 2 puffs Q4H PRN INH 07/11/17 21:00 08/10/17 20:59 Albuterol Sulfate (Ventolin 0.083% 2.5MG/3ML Neb) 2.5 mg QID PRN INH 07/11/17 21:00 08/10/17 20:59 Salmeterol Xinafoate/ Fluticasone (Advair Diskus 500/50 Inh) 1 puff BID INH 07/11/17 21:00 08/10/17 20:59 07/15/17 08:27 1 PUFF Triamcinolone Acetonide (Nasacort Allergy 24hr) 2 sprays QAM PRN YARIEL 07/11/17 21:00 08/10/17 20:59 Pantoprazole Sodium 40 mg/ Syringe 10 ml @ 5 mls/min DAILY@11 IV 07/12/17 11:00 08/11/17 10:59 07/15/17 09:30 5 MLS/MIN Levothyroxine Sodium 25 mcg/ Syringe 1.25 ml @ 2 mls/min DAILY@09 IV 07/12/17 09:00 08/11/17 08:59 07/15/17 10:00 2 MLS/MIN Heparin Sodium (Porcine) (Heparin 100 Unit/ml 5ml Flush) 5 ml PRN PRN IV 07/12/17 03:15 08/11/17 03:14 Morphine Sulfate (MoRPHine SULFATE INJ) 2 mg Q4H PRN IV 07/12/17 06:00 07/26/17 05:59 07/12/17 21:22 2 MG Ondansetron HCl (Zofran Inj) 4 mg Q6H PRN IV 07/12/17 22:00 08/11/17 21:59 07/15/17 09:39 4 MG Acetaminophen/ Hydrocodone Bitart ([place] 5/325 Tab) 1 tab Q4 PRN PO 07/15/17 06:30 07/29/17 06:29 Acetaminophen/ Hydrocodone Bitart ([place] 5/325 Tab) 2 tab Q4 PRN PO 07/15/17 06:30 07/29/17 06:29 Fludrocortisone Acetate (Florinef Tab) 0.1 mg DAILY PO 07/15/17 09:00 08/14/17 08:59 07/15/17 08:28 0.1 MG Potassium Chloride (Klor-Con Tab) 40 meq BID PO 07/15/17 21:00 08/14/17 20:59 07/15/17 10:35 40 MEQ Objective Vital Signs Date Time Temp Pulse Resp B/P (MAP) Pulse Ox O2 Delivery O2 Flow Rate FiO2 07/15/17 07:40 Room Air 07/15/17 07:35 36.7 62 16 156/89 (111) 97 Room Air 07/14/17 23:15 Room Air 07/14/17 22:50 36.4 74 18 159/90 (113) 96 Room Air 07/14/17 15:30 Room Air 07/14/17 15:00 36.6 67 20 176/95 (122) 96 Room Air Physical Exam General Appearance: WD/WN, no apparent distress Respiratory/Chest: lungs clear, normal breath sounds Cardiovascular: regular rate, rhythm, no murmur Neurologic/Psychiatric: alert, normal mood/affect, oriented x 3 Skin: normal color, warm/dry, no rash Laboratory Results 07/15/17 07:28 07/15/17 07:28 Test 07/15/17 07:28 Red Blood Count 3.88 M/uL (4.2-5.4) Mean Corpuscular Volume 83.8 fL (80-100) Mean Corpuscular Hemoglobin 27.3 pg (25-34) Mean Corpuscular Hemoglobin Concent 32.6 g/dl (32-36) RDW Standard Deviation 57.4 fL (36.4-46.3) RDW Coefficient of Variation 18.5 % (11.5-14.5) Mean Platelet Volume 11.2 fL (7.4-10.4) Anion Gap 8.0 mmol/L (3-11) Est Creatinine Clear Calc Drug Dose 74.6 ml/min Estimated GFR () 87.8 Estimated GFR (Non- 75.8 BUN/Creatinine Ratio 11.1 (10-20) Calcium Level 9.0 mg/dl (8.5-10.1) Assessment and Plan 66 y/o female with a past medical history of Asthma, 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 Perforated Diverticulitis - Rocephin 1g IV, day 4, Flagyl 500mg q8h IV, day 4 - General Surgery Consult --> continue conservative management - Diet: full liquid diet - ID Consult --> 14 days total, can switch flagyl to PO on discharge; has port if needed for [facility] Rx on D/C - IN NS + 20 meq K @ 50mls/hr - Leukocytosis --> WBC improved Autonomic dysfunction requiring florinef - Received Stress dose steroids. Now switch back to home dose of Florinef 0.1 daily Elevated Blood Pressure -Patient has BP in 160's. Likely 2/2 to steroids. -Pt remarks that cardiology is aware---permissive HTN is tolerated due to autonomic dysfunction, risk of falls Hypokalemia - K+ 3.0 this am, giving patient 40 mg K BID PO - BMP qAM - Magnesium level 2.3 Asthma - Resume home Albuterol and Advair Hypothyroidism - Synthroid 25 mcg IV daily (converted from home PO dose) GERD - Protonix 40mg IV daily DVTP: SCDs Code: Full Dispo: Med/surg; *Case mgmt will need Rx for any outpatient IV Abx req'd to set up pt in [facility] on D /C* Reviewed: Pt Seen/Exam by Me History abdominal pain continues to be better didn't get any sleep last night. feeling very frustrated this morning Constitutional: denies: fever Respiratory: negative: short of breath Cardiovascular: denies chest pain General Appearance: no apparent distress Respiratory: lungs clear, no respiratory distress Cardiovascular: regular rate, rhythm Gastrointestinal: soft Neurologic/Psychiatric: alert, oriented x 3, other (tearful and upset) Skin Characteristics: warm/dry Assessment/Plan Resident Physician Supervision Note: I independently interviewed and examined the patient and verified the osman history and physical, reviewed labs and image studies, discussed the case with the resident Dr. Lopez and agree with the findings and care plan. one dose lorazepam ordered to help catch up on sleep.
[2017-07-15] MEDS: LEVOTHYROXINE SODIUM INJ 25 MCG in SYRINGE 0 ML IV SCH (10:00)
[2017-07-15] MEDS: POTASSIUM CHLORIDE 20 MEQ TABCR PO SCH (10:35)
--- NOTE | 2017-07-15 11:29 | Surgery Progress Note ---
Surgery Progress Note Date of Service Jul 15, 2017. Subjective + feeling well pt is doing better, passed gas, pt denies abdominal pain, no nausea. no vomiting , she tolerated clear diet, Objective Vital Signs: Date Time Temp Pulse Resp B/P (MAP) Pulse Ox O2 Delivery O2 Flow Rate FiO2 07/15/17 07:40 Room Air 07/15/17 07:35 36.7 62 16 156/89 (111) 97 Room Air 07/14/17 23:15 Room Air 07/14/17 22:50 36.4 74 18 159/90 (113) 96 Room Air 07/14/17 15:30 Room Air 07/14/17 15:00 36.6 67 20 176/95 (122) 96 Room Air General Appearance: WD/WN, no apparent distress Head: normocephalic, atraumatic Neck: supple, no JVD Respiratory/Chest: chest non-tender, lungs clear Cardiovascular: regular rate, rhythm, no edema Abdomen: normal bowel sounds, non tender, non distended, soft, no organomegaly Extremities: normal range of motion, non-tender, normal inspection Laboratory Results: Results Past 24 Hours Test 07/15/17 07:28 Range/Units White Blood Count 10.81 4.8-10.8 K/uL Red Blood Count 3.88 4.2-5.4 M/uL Hemoglobin 10.6 12.0-16.0 g/dL Hematocrit 32.5 37-47 % Mean Corpuscular Volume 83.8 80-100 fL Mean Corpuscular Hemoglobin 27.3 25-34 pg Mean Corpuscular Hemoglobin Concent 32.6 32-36 g/dl RDW Standard Deviation 57.4 36.4-46.3 fL RDW Coefficient of Variation 18.5 11.5-14.5 % Platelet Count 212 130-400 K/uL Mean Platelet Volume 11.2 7.4-10.4 fL Sodium Level 139 136-145 mmol/L Potassium Level 3.0 3.5-5.1 mmol/L Chloride Level 110 98-107 mmol/L Carbon Dioxide Level 21 21-32 mmol/L Anion Gap 8.0 3-11 mmol/L Blood Urea Nitrogen 9 7-18 mg/dl Creatinine 0.80 0.60-1.20 mg/dl Est Creatinine Clear Calc Drug Dose 74.6 ml/min Estimated GFR () 87.8 Estimated GFR (Non- 75.8 BUN/Creatinine Ratio 11.1 10-20 Random Glucose 77 70-99 mg/dl Calcium Level 9.0 8.5-10.1 mg/dl Assessment & Plan doing fine, Full liquid diet will F/U possible D/C home tomorrow,
[2017-07-15 15:46] VITALS: BP 119/67; PULSE 77; TEMP 37.1; O2SAT 96
[2017-07-15] MEDS: CEFTRIAXONE SOD INJ 1 GM in DEXTROSE 5% ADD-VANTAGE 50ML 50 ML IV SCH (22:31)
[2017-07-15 23:00] VITALS: BP 120/65; PULSE 85; TEMP 37; O2SAT 95
[2017-07-16] MEDS: METRONIDAZOLE / NSS 500 MG in PREMIXED NSS 100 ML IV SCH ×3 (02:29→17:42)
[2017-07-16] MEDS: NSS + 20MEQ KCL 1000ML 1,000 ML IV SCH (04:45)
[2017-07-16 07:02] LABS: HEMATOCRIT 33.3 % (37-47); HEMOGLOBIN 10.8 g/dL (12.0-16.0); MEAN CELL VOLUME 84.1 fL (80-100); MEAN CORPUSCULAR HEMOGLOBIN 27.3 pg (25-34); MEAN CORPUSCULAR HGB CONC 32.4 g/dl (32-36); MEAN PLATELET VOLUME 11.5 fL (7.4-10.4); PLATELET COUNT 206 K/uL (130-400); RED CELL DISTRIBUTION WIDTH CV 18.5 % (11.5-14.5); RED CELL DISTRIBUTION WIDTH SD 57.2 fL (36.4-46.3); WHITE BLOOD COUNT 9.28 K/uL (4.8-10.8)
[2017-07-16 07:26] VITALS: BP 157/89; PULSE 78; TEMP 36.7; O2SAT 93
[2017-07-16 07:34] LABS: CALCIUM 8.8 mg/dl (8.5-10.1); CREATININE 0.91 mg/dl (0.60-1.20); POTASSIUM 3.2 mmol/L (3.5-5.1)
[2017-07-16] MEDS: LEVOTHYROXINE SODIUM INJ 25 MCG in SYRINGE 0 ML IV SCH (09:16)
[2017-07-16] MEDS: FLUTICASONE/SALMETEROL (ADVAIR) 500/50 INH 14 PUFF INH SCH ×2 (09:16→20:40)
[2017-07-16] MEDS: FLUDROCORTISONE ACETATE 0.1 MG TAB PO SCH (09:17)
[2017-07-16] MEDS: POTASSIUM CHLORIDE 20 MEQ TABCR PO SCH ×2 (09:17→20:40)
[2017-07-16] MEDS: PANTOprazole INJ 40 MG in SYRINGE 0 ML IV SCH (09:18)
--- NOTE | 2017-07-16 09:43 | Surgery Progress Note ---
Surgery Progress Note Date of Service Jul 16, 2017. Subjective + feeling well pt is doing better, no abdominal pain, no nausea, no vomiting, no fever, Objective Vital Signs: Date Time Temp Pulse Resp B/P (MAP) Pulse Ox O2 Delivery O2 Flow Rate FiO2 07/16/17 07:40 Room Air 07/16/17 07:26 36.7 78 21 157/89 (111) 93 Room Air 07/15/17 23:50 Room Air 07/15/17 23:00 37.0 85 16 120/65 (83) 95 Room Air 07/15/17 15:46 37.1 77 17 119/67 (84) 96 Room Air 07/15/17 15:30 Room Air General Appearance: WD/WN, no apparent distress Head: normocephalic Neck: supple, no adenopathy, no JVD Respiratory/Chest: chest non-tender, lungs clear, normal breath sounds Cardiovascular: regular rate, rhythm, no edema, no gallop Abdomen: normal bowel sounds, non tender, non distended, soft, no organomegaly Extremities: normal range of motion, non-tender, normal inspection Laboratory Results: Results Past 24 Hours Test 07/16/17 06:10 Range/Units White Blood Count 9.28 4.8-10.8 K/uL Red Blood Count 3.96 4.2-5.4 M/uL Hemoglobin 10.8 12.0-16.0 g/dL Hematocrit 33.3 37-47 % Mean Corpuscular Volume 84.1 80-100 fL Mean Corpuscular Hemoglobin 27.3 25-34 pg Mean Corpuscular Hemoglobin Concent 32.4 32-36 g/dl RDW Standard Deviation 57.2 36.4-46.3 fL RDW Coefficient of Variation 18.5 11.5-14.5 % Platelet Count 206 130-400 K/uL Mean Platelet Volume 11.5 7.4-10.4 fL Sodium Level 140 136-145 mmol/L Potassium Level 3.2 3.5-5.1 mmol/L Chloride Level 110 98-107 mmol/L Carbon Dioxide Level 23 21-32 mmol/L Anion Gap 7.0 3-11 mmol/L Blood Urea Nitrogen 5 7-18 mg/dl Creatinine 0.91 0.60-1.20 mg/dl Est Creatinine Clear Calc Drug Dose 65.6 ml/min Estimated GFR () 75.1 Estimated GFR (Non- 64.8 BUN/Creatinine Ratio 5.1 10-20 Random Glucose 112 70-99 mg/dl Calcium Level 8.8 8.5-10.1 mg/dl Assessment & Plan doing fine, Full liquid diet will F/U possible D/C home tomorrow, 07/16/2017 doing fine, continue treatment, will F/U doing fine, Full liquid diet will F/U possible D/C home tomorrow,
--- NOTE | 2017-07-16 13:04 | Family Medicine Progress Note ---
Progress Note Date of Service Jul 16, 2017. Subjective Pt evaluation today including: conversation w/ patient, physical exam, chart review, lab review Pain: denies pain PO Intake: full liquid diet Voiding: no voiding problems Patient is doing well this morning, slept well overnight, ambulating normally without assistance and is tolerating full liquid diet. Constitutional: No fever, No chills, No sweats Respiratory: No cough, No shortness of breath, No dyspnea on exertion Cardiovascular: No chest pain, No palpitations Abdomen: + nausea, No pain, No vomiting, No diarrhea Female : No dysuria Medications Current Inpatient Medications Medications (Trade) Dose Ordered Sig/Ross Route Start Time Stop Time Status Last Admin Dose Admin Ceftriaxone Sodium 1 gm/ Dextrose 50 ml @ 100 mls/hr Q24H IV 07/12/17 23:00 07/22/17 17:59 07/15/17 22:31 100 MLS/HR Metronidazole 500 mg/Prmx 100 ml @ 100 mls/hr Q8H IV 07/12/17 02:00 07/22/17 01:59 07/16/17 09:18 100 MLS/HR Potassium Chloride/Sodium Chloride 1,000 ml @ 50 mls/hr Q20H IV 07/11/17 23:00 08/10/17 20:59 07/16/17 04:45 50 MLS/HR Albuterol (Ventolin Hfa Inhaler) 2 puffs Q4H PRN INH 07/11/17 21:00 08/10/17 20:59 Albuterol Sulfate (Ventolin 0.083% 2.5MG/3ML Neb) 2.5 mg QID PRN INH 07/11/17 21:00 08/10/17 20:59 Salmeterol Xinafoate/ Fluticasone (Advair Diskus 500/50 Inh) 1 puff BID INH 07/11/17 21:00 08/10/17 20:59 07/16/17 09:16 1 PUFF Triamcinolone Acetonide (Nasacort Allergy 24hr) 2 sprays QAM PRN YARIEL 07/11/17 21:00 08/10/17 20:59 Pantoprazole Sodium 40 mg/ Syringe 10 ml @ 5 mls/min DAILY@11 IV 07/12/17 11:00 08/11/17 10:59 07/16/17 09:18 5 MLS/MIN Levothyroxine Sodium 25 mcg/ Syringe 1.25 ml @ 2 mls/min DAILY@09 IV 07/12/17 09:00 08/11/17 08:59 07/16/17 09:16 2 MLS/MIN Heparin Sodium (Porcine) (Heparin 100 Unit/ml 5ml Flush) 5 ml PRN PRN IV 07/12/17 03:15 08/11/17 03:14 Morphine Sulfate (MoRPHine SULFATE INJ) 2 mg Q4H PRN IV 07/12/17 06:00 07/26/17 05:59 07/12/17 21:22 2 MG Ondansetron HCl (Zofran Inj) 4 mg Q6H PRN IV 07/12/17 22:00 08/11/17 21:59 07/15/17 09:39 4 MG Acetaminophen/ Hydrocodone Bitart ([place] 5/325 Tab) 1 tab Q4 PRN PO 07/15/17 06:30 07/29/17 06:29 Acetaminophen/ Hydrocodone Bitart ([place] 5/325 Tab) 2 tab Q4 PRN PO 07/15/17 06:30 07/29/17 06:29 Fludrocortisone Acetate (Florinef Tab) 0.1 mg DAILY PO 07/15/17 09:00 08/14/17 08:59 07/16/17 09:17 0.1 MG Potassium Chloride (Klor-Con Tab) 40 meq BID PO 07/15/17 21:00 08/14/17 20:59 07/16/17 09:17 40 MEQ Objective Vital Signs Date Time Temp Pulse Resp B/P (MAP) Pulse Ox O2 Delivery O2 Flow Rate FiO2 07/16/17 07:40 Room Air 07/16/17 07:26 36.7 78 21 157/89 (111) 93 Room Air 07/15/17 23:50 Room Air 07/15/17 23:00 37.0 85 16 120/65 (83) 95 Room Air 07/15/17 15:46 37.1 77 17 119/67 (84) 96 Room Air 07/15/17 15:30 Room Air Physical Exam General Appearance: WD/WN, no apparent distress Neck: supple, no adenopathy, thyroid normal Respiratory/Chest: lungs clear, normal breath sounds, no respiratory distress Cardiovascular: regular rate, rhythm, no murmur Abdomen: no organomegaly, + distended, + pertinent finding (umbilical pertuberunce consistent with umbilical hernia ) Neurologic/Psychiatric: alert, normal mood/affect, oriented x 3 Skin: normal color, warm/dry, no rash Laboratory Results 07/16/17 06:10 07/16/17 06:10 Test 07/16/17 06:10 Red Blood Count 3.96 M/uL (4.2-5.4) Mean Corpuscular Volume 84.1 fL (80-100) Mean Corpuscular Hemoglobin 27.3 pg (25-34) Mean Corpuscular Hemoglobin Concent 32.4 g/dl (32-36) RDW Standard Deviation 57.2 fL (36.4-46.3) RDW Coefficient of Variation 18.5 % (11.5-14.5) Mean Platelet Volume 11.5 fL (7.4-10.4) Anion Gap 7.0 mmol/L (3-11) Est Creatinine Clear Calc Drug Dose 65.6 ml/min Estimated GFR () 75.1 Estimated GFR (Non- 64.8 BUN/Creatinine Ratio 5.1 (10-20) Calcium Level 8.8 mg/dl (8.5-10.1) Assessment and Plan 66 y/o female with a past medical history of Asthma, 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 Perforated Diverticulitis - Rocephin 1g IV, day 5, Flagyl 500mg q8h IV, day 5 - General Surgery Consult --> continue conservative management - Diet: full liquid diet - ID Consult --> 14 days total, can switch flagyl to PO on discharge; has port if needed for [facility] Rx on D/C - IN NS + 20 meq K @ 50mls/hr - Leukocytosis --> WBC improved Autonomic dysfunction requiring florinef - Received Stress dose steroids. Now switch back to home dose of Florinef 0.1 daily Elevated Blood Pressure -Patient has BP in 160's. Likely 2/2 to steroids. -Pt remarks that cardiology is aware---permissive HTN is tolerated due to autonomic dysfunction, risk of falls Hypokalemia - K+ 3.2 this am, giving patient 40 mg K BID PO - BMP qAM Asthma - Resume home Albuterol and Advair Hypothyroidism - Synthroid 25 mcg IV daily (converted from home PO dose) GERD - Protonix 40mg IV daily DVTP: SCDs Code: Full Dispo: Med/surg; *Case mgmt will need Rx for any outpatient IV Abx req'd to set up pt in [facility] on D /C* Reviewed: Pt Seen/Exam by Me History slept well overnight. noted lump close to umbilicus Constitutional: denies: fever Respiratory: negative: short of breath Cardiovascular: denies chest pain General Appearance: no apparent distress Respiratory: lungs clear, no respiratory distress Cardiovascular: regular rate, rhythm Gastrointestinal: normal bowel sounds, soft, tenderness (mild mid abdomen) Neurologic/Psychiatric: alert, oriented x 3 Skin Characteristics: warm/dry Assessment/Plan Resident Physician Supervision Note: I independently interviewed and examined the patient and verified the osman history and physical, reviewed labs and image studies, discussed the case with the resident Dr. Lopez and agree with the findings and care plan. one dose lorazepam ordered to help catch up on sleep.
[2017-07-16 15:15] VITALS: BP 151/89; PULSE 74; TEMP 36.3; O2SAT 95
[2017-07-16] MEDS: ONDANSETRON INJ 2 MG/ML 2 ML VIAL IV PRN (17:18)
[2017-07-16] MEDS: CEFTRIAXONE SOD INJ 1 GM in DEXTROSE 5% ADD-VANTAGE 50ML 50 ML IV SCH (22:34)
[2017-07-16 23:05] VITALS: BP 143/78; PULSE 87; TEMP 37; O2SAT 96
[2017-07-17] MEDS: METRONIDAZOLE / NSS 500 MG in PREMIXED NSS 100 ML IV SCH ×2 (02:29→09:53)
[2017-07-17 06:00] LABS: HEMATOCRIT 34.7 % (37-47); MEAN CELL VOLUME 83.6 fL (80-100); MEAN CORPUSCULAR HEMOGLOBIN 26.5 pg (25-34); MEAN CORPUSCULAR HGB CONC 31.7 g/dl (32-36); MEAN PLATELET VOLUME 11.6 fL (7.4-10.4); PLATELET COUNT 207 K/uL (130-400); RED CELL DISTRIBUTION WIDTH CV 18.6 % (11.5-14.5); RED CELL DISTRIBUTION WIDTH SD 56.9 fL (36.4-46.3); WHITE BLOOD COUNT 8.58 K/uL (4.8-10.8)
[2017-07-17 06:39] LABS: CALCIUM 9.2 mg/dl (8.5-10.1); CREATININE 0.86 mg/dl (0.60-1.20); POTASSIUM 3.7 mmol/L (3.5-5.1)
[2017-07-17 07:12] VITALS: BP 158/83; PULSE 77; TEMP 36.7; O2SAT 94
--- NOTE | 2017-07-17 08:13 | Surgery Progress Note ---
Surgery Progress Note Date of Service Jul 17, 2017. Subjective up , out of bed some pain assoc with food but no acute chgs Objective Vital Signs: Date Time Temp Pulse Resp B/P (MAP) Pulse Ox O2 Delivery O2 Flow Rate FiO2 07/17/17 07:12 36.7 77 16 158/83 (108) 94 Room Air 07/16/17 23:45 Room Air 07/16/17 23:05 37.0 87 18 143/78 (99) 96 Room Air 07/16/17 15:20 Room Air 07/16/17 15:15 36.3 74 18 151/89 (109) 95 Room Air General Appearance: no apparent distress Respiratory/Chest: no respiratory distress Abdomen: soft Laboratory Results: Results Past 24 Hours Test 07/17/17 05:47 Range/Units White Blood Count 8.58 4.8-10.8 K/uL Red Blood Count 4.15 4.2-5.4 M/uL Hemoglobin 11.0 12.0-16.0 g/dL Hematocrit 34.7 37-47 % Mean Corpuscular Volume 83.6 80-100 fL Mean Corpuscular Hemoglobin 26.5 25-34 pg Mean Corpuscular Hemoglobin Concent 31.7 32-36 g/dl RDW Standard Deviation 56.9 36.4-46.3 fL RDW Coefficient of Variation 18.6 11.5-14.5 % Platelet Count 207 130-400 K/uL Mean Platelet Volume 11.6 7.4-10.4 fL Sodium Level 140 136-145 mmol/L Potassium Level 3.7 3.5-5.1 mmol/L Chloride Level 110 98-107 mmol/L Carbon Dioxide Level 22 21-32 mmol/L Anion Gap 8.0 3-11 mmol/L Blood Urea Nitrogen 3 7-18 mg/dl Creatinine 0.86 0.60-1.20 mg/dl Est Creatinine Clear Calc Drug Dose 69.4 ml/min Estimated GFR () 80.5 Estimated GFR (Non- 69.4 BUN/Creatinine Ratio 3.8 10-20 Random Glucose 103 70-99 mg/dl Calcium Level 9.2 8.5-10.1 mg/dl Assessment & Plan 07/17/17- will try low fiber diet for lunch- possible d/c tomorrow depending on progress. Will repeat CT at some point- hold off for now unless worsens 1/12/18- will try clear liquids, cont Iv atbx as ordered. Continue in hospital care 2-3 days- plan to d/c on IV atbx via port in Med treatment unit as outpt 07/13/17- seems to be stable- less abd pain, normal alert affect. limited po today- ice/ sips, IV atbx as per Dr Jacobs- 2 weeks IV via port- med treatment unit if continues to do well. Very slow adv of diet- possible clear tray tomorrow 07/12/17- adm w/ diverticulitis, contained perf w/ gas , no overt abscess cont to monitor- IV atbx, ice only . check labs 07/14/17- will try clear liquids, cont Iv atbx as ordered. Continue in hospital care 2-3 days- plan to d/c on IV atbx via port in Med treatment unit as outpt 07/13/17- seems to be stable- less abd pain, normal alert affect. limited po today- ice/ sips, IV atbx as per Dr Jacobs- 2 weeks IV via port- med treatment unit if continues to do well. Very slow adv of diet- possible clear tray tomorrow 07/12/17- adm w/ diverticulitis, contained perf w/ gas , no overt abscess cont to monitor- IV atbx, ice only . check labs
[2017-07-17] MEDS: POTASSIUM CHLORIDE 20 MEQ TABCR PO SCH ×2 (08:49→21:28)
[2017-07-17] MEDS: FLUTICASONE/SALMETEROL (ADVAIR) 500/50 INH 14 PUFF INH SCH ×2 (08:49→21:27)
[2017-07-17] MEDS: FLUDROCORTISONE ACETATE 0.1 MG TAB PO SCH (08:49)
[2017-07-17] MEDS: LEVOTHYROXINE SODIUM INJ 25 MCG in SYRINGE 0 ML IV SCH (08:58)
[2017-07-17] MEDS: PANTOprazole INJ 40 MG in SYRINGE 0 ML IV SCH (10:46)
[2017-07-17 15:31] VITALS: BP 155/92; PULSE 87; TEMP 37; O2SAT 96
[2017-07-17 15:56] VITALS: BP 135/75; PULSE 62; TEMP 36.8; O2SAT 99
--- NOTE | 2017-07-17 16:20 | Family Medicine Progress Note ---
Progress Note Date of Service Jul 17, 2017. Subjective Pt evaluation today including: conversation w/ patient, physical exam, chart review, lab review Pain: no discomfort reported PO Intake: tolerating full liquid diet Voiding: no voiding problems This AM pt denied any discomfort, n/v or abdominal pain. Reported normal BM yesterday and somewhat looser BM this AM which was not watery or bloody. Constitutional: No fever, No chills Respiratory: No shortness of breath Cardiovascular: No chest pain Abdomen: No pain, No nausea, No vomiting, No constipation Female : No dysuria Medications Current Inpatient Medications Medications (Trade) Dose Ordered Sig/Ross Route Start Time Stop Time Status Last Admin Dose Admin Ceftriaxone Sodium 1 gm/ Dextrose 50 ml @ 100 mls/hr Q24H IV 07/12/17 23:00 07/22/17 17:59 07/16/17 22:34 100 MLS/HR Albuterol (Ventolin Hfa Inhaler) 2 puffs Q4H PRN INH 07/11/17 21:00 08/10/17 20:59 Albuterol Sulfate (Ventolin 0.083% 2.5MG/3ML Neb) 2.5 mg QID PRN INH 07/11/17 21:00 08/10/17 20:59 Salmeterol Xinafoate/ Fluticasone (Advair Diskus 500/50 Inh) 1 puff BID INH 07/11/17 21:00 08/10/17 20:59 07/17/17 08:49 1 PUFF Triamcinolone Acetonide (Nasacort Allergy 24hr) 2 sprays QAM PRN YARIEL 07/11/17 21:00 08/10/17 20:59 Heparin Sodium (Porcine) (Heparin 100 Unit/ml 5ml Flush) 5 ml PRN PRN IV 07/12/17 03:15 08/11/17 03:14 07/17/17 10:48 5 ML Morphine Sulfate (MoRPHine SULFATE INJ) 2 mg Q4H PRN IV 07/12/17 06:00 07/26/17 05:59 07/12/17 21:22 2 MG Ondansetron HCl (Zofran Inj) 4 mg Q6H PRN IV 07/12/17 22:00 08/11/17 21:59 07/16/17 17:18 4 MG Acetaminophen/ Hydrocodone Bitart ([place] 5/325 Tab) 1 tab Q4 PRN PO 07/15/17 06:30 07/29/17 06:29 Acetaminophen/ Hydrocodone Bitart ([place] 5/325 Tab) 2 tab Q4 PRN PO 07/15/17 06:30 07/29/17 06:29 Fludrocortisone Acetate (Florinef Tab) 0.1 mg DAILY PO 07/15/17 09:00 08/14/17 08:59 07/17/17 08:49 0.1 MG Potassium Chloride (Klor-Con Tab) 40 meq BID PO 07/15/17 21:00 08/14/17 20:59 07/17/17 08:49 40 MEQ Metronidazole (Flagyl Tab) 500 mg Q8 PO 07/17/17 16:00 07/21/17 23:59 Pantoprazole Sodium (Protonix Tab) 40 mg QAM PO 07/18/17 09:00 08/17/17 08:59 Levothyroxine Sodium (Synthroid Tab) 50 mcg Q2D@0600 PO 07/18/17 06:00 08/17/17 05:59 Levothyroxine Sodium (Synthroid Tab) 75 mcg Q2D@0600 PO 07/19/17 06:00 08/18/17 05:59 Objective Vital Signs Date Time Temp Pulse Resp B/P (MAP) Pulse Ox O2 Delivery O2 Flow Rate FiO2 07/17/17 15:56 36.8 62 18 135/75 (95) 99 Room Air 07/17/17 15:31 37.0 87 19 155/92 (113) 96 Room Air 07/17/17 07:30 Room Air 07/17/17 07:12 36.7 77 16 158/83 (108) 94 Room Air 07/16/17 23:45 Room Air 07/16/17 23:05 37.0 87 18 143/78 (99) 96 Room Air Physical Exam General Appearance: no apparent distress Eyes: normal inspection, sclerae normal Neck: supple Respiratory/Chest: lungs clear, normal breath sounds Cardiovascular: regular rate, rhythm, no murmur Abdomen: normal bowel sounds, non tender, soft Extremities: + pertinent finding (1+ pretibial edema) Neurologic/Psychiatric: alert, oriented x 3 Skin: warm/dry Laboratory Results 07/17/17 05:47 07/17/17 05:47 Test 07/17/17 05:47 Red Blood Count 4.15 M/uL (4.2-5.4) Mean Corpuscular Volume 83.6 fL (80-100) Mean Corpuscular Hemoglobin 26.5 pg (25-34) Mean Corpuscular Hemoglobin Concent 31.7 g/dl (32-36) RDW Standard Deviation 56.9 fL (36.4-46.3) RDW Coefficient of Variation 18.6 % (11.5-14.5) Mean Platelet Volume 11.6 fL (7.4-10.4) Anion Gap 8.0 mmol/L (3-11) Est Creatinine Clear Calc Drug Dose 69.4 ml/min Estimated GFR () 80.5 Estimated GFR (Non- 69.4 BUN/Creatinine Ratio 3.8 (10-20) Calcium Level 9.2 mg/dl (8.5-10.1) Assessment and Plan 66 y/o female with a past medical history of Asthma, 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 Perforated Diverticulitis - Leukocytosis --> WBC normalized to 8.58 this AM - Continue Rocephin 1g IV, day 6 - Continue Flagyl transition to PO 500mg Q8H this AM, day 6 - ID Consult --> Abx for 14 days total, has port for Rocephin on D/C - General Surgery Consult --> continue conservative management - Diet: transitioned to low fiber, tolerated full liquid diet Autonomic dysfunction requiring florinef - Received Stress dose steroids - Now on home dose of Florinef 0.1 daily Elevated Blood Pressure - Patient has BP in 160's. Likely 2/2 to steroids. - Pt remarks that cardiology is aware---permissive HTN is tolerated due to autonomic dysfunction, risk of falls Hypokalemia - resolved - K 3.7 this AM - Received KCL 40meq 07/16 - BMP qAM Asthma - Continue home Albuterol and Advair Hypothyroidism - Synthroid converted to PO home dosage - alternating 50mg and 75mg PO daily GERD - Continue Protonix 40mg IV daily DVTP: SCDs Code: Full Dispo: Discharge tomorrow *Case mgmt will need Rx for any outpatient IV Abx req'd to set up pt in [facility] on D /C* Resident Involvement: Resident Care Provided Care Provided: Adult [facility] Medicine Reviewed: Pt Seen/Exam by Me History Pt is doing much better. She has had no abd pain, n/v. Pt is tolerating PO without issue and awaiting an advanced diet for lunch. No chest pain or SOB. Pt informs me that she has had issues with constipation "since I was a teenager ". No prior hx of diverticulitis. She did have a small amount of loose stools today, but much better overall. Agree with HPI/ROS as noted by resident General Appearance: WD/WN, no apparent distress Respiratory: normal breath sounds, no respiratory distress Cardiovascular: normal peripheral pulses, regular rate, rhythm Gastrointestinal: non tender, soft Extremities: non-tender, no pedal edema Neurologic/Psychiatric: alert, normal mood/affect, oriented x 3 Skin Characteristics: normal color, warm/dry Assessment/Plan Agree with plan as outlined above Diverticulitis with perf, doing well with conservative management Change flagyl to PO today, planning for a total of 14 days of abx use which will include daily [facility] rocephin--port in place for immunodeficiency dx f/u with surgery for possible repeat CT AP at a later date Advised probiotics
[2017-07-17] MEDS: METRONIDAZOLE 500 MG TAB PO SCH ×2 (16:34→21:28)
[2017-07-17] MEDS ORDERED: SACCHAROMYCES BOUL (FLORASTOR) 250 MG CAP PO ONE (19:04)
[2017-07-17] MEDS: SODIUM CHLORIDE 0.9% 1000ML 1,000 ML IV SCH (19:29)
[2017-07-17] MEDS: LACTOBACILLUS ACIDOPHILUS (FLORANEX) TAB PO SCH (21:28)
[2017-07-17] MEDS: CEFTRIAXONE SOD INJ 1 GM in DEXTROSE 5% ADD-VANTAGE 50ML 50 ML IV SCH (22:30)
[2017-07-17 22:58] VITALS: BP 157/84; PULSE 91; TEMP 36.8; O2SAT 96
[2017-07-18] MEDS: SODIUM CHLORIDE 0.9% 1000ML 1,000 ML IV SCH ×2 (05:37→13:49)
[2017-07-18] MEDS: METRONIDAZOLE 500 MG TAB PO SCH ×2 (05:38→13:20)
[2017-07-18] MEDS ORDERED: LEVOTHYROXINE 50 MCG TAB PO SCH (06:00)
--- NOTE | 2017-07-18 06:43 | Surgery Progress Note ---
Surgery Progress Note Date of Service Jul 18, 2017. Subjective improved on diet- bowel movements more normal wants to go home Objective Vital Signs: Date Time Temp Pulse Resp B/P (MAP) Pulse Ox O2 Delivery O2 Flow Rate FiO2 07/17/17 23:15 Room Air 07/17/17 22:58 36.8 91 18 157/84 (108) 96 Room Air 07/17/17 16:25 Room Air 07/17/17 15:56 36.8 62 18 135/75 (95) 99 Room Air 07/17/17 15:31 37.0 87 19 155/92 (113) 96 Room Air 07/17/17 07:30 Room Air 07/17/17 07:12 36.7 77 16 158/83 (108) 94 Room Air General Appearance: no apparent distress Respiratory/Chest: no respiratory distress Abdomen: soft Laboratory Results: Results Past 24 Hours Test 07/18/17 04:44 Range/Units Microbiology Results 07/17/17 C.difficile Toxin B Gene (PCR) - Final, Complete No C. difficile toxin B gene detected Assessment & Plan 07/18/17- d/c on IV atbx per med team- CT abd/pelvis next week will followup in office 1-2 weeks. 07/17/17- will try low fiber diet for lunch- possible d/c tomorrow depending on progress. Will repeat CT at some point- hold off for now unless worsens 07/14/17- will try clear liquids, cont Iv atbx as ordered. Continue in hospital care 2-3 days- plan to d/c on IV atbx via port in Med treatment unit as outpt 07/13/17- seems to be stable- less abd pain, normal alert affect. limited po today- ice/ sips, IV atbx as per Dr Jacobs- 2 weeks IV via port- med treatment unit if continues to do well. Very slow adv of diet- possible clear tray tomorrow 07/12/17- adm w/ diverticulitis, contained perf w/ gas , no overt abscess cont to monitor- IV atbx, ice only . check labs 07/17/17- will try low fiber diet for lunch- possible d/c tomorrow depending on progress. Will repeat CT at some point- hold off for now unless worsens 07/14/17- will try clear liquids, cont Iv atbx as ordered. Continue in hospital care 2-3 days- plan to d/c on IV atbx via port in Med treatment unit as outpt 07/13/17- seems to be stable- less abd pain, normal alert affect. limited po today- ice/ sips, IV atbx as per Dr Jacobs- 2 weeks IV via port- med treatment unit if continues to do well. Very slow adv of diet- possible clear tray tomorrow 07/12/17- adm w/ diverticulitis, contained perf w/ gas , no overt abscess cont to monitor- IV atbx, ice only . check labs
[2017-07-18 07:07] VITALS: BP 146/89; PULSE 75; TEMP 36.8; O2SAT 95
[2017-07-18 07:43] LABS: HEMATOCRIT 33.4 % (37-47); HEMOGLOBIN 10.6 g/dL (12.0-16.0); MEAN CELL VOLUME 84.1 fL (80-100); MEAN CORPUSCULAR HEMOGLOBIN 26.7 pg (25-34); MEAN CORPUSCULAR HGB CONC 31.7 g/dl (32-36); MEAN PLATELET VOLUME 11.7 fL (7.4-10.4); PLATELET COUNT 215 K/uL (130-400); RED CELL DISTRIBUTION WIDTH CV 18.7 % (11.5-14.5); RED CELL DISTRIBUTION WIDTH SD 57.5 fL (36.4-46.3); WHITE BLOOD COUNT 7.52 K/uL (4.8-10.8)
[2017-07-18 08:12] LABS: CALCIUM 9.2 mg/dl (8.5-10.1); CREATININE 0.68 mg/dl (0.60-1.20); POTASSIUM 3.7 mmol/L (3.5-5.1)
[2017-07-18] MEDS: FLUTICASONE/SALMETEROL (ADVAIR) 500/50 INH 14 PUFF INH SCH (08:49)
[2017-07-18] MEDS: FLUDROCORTISONE ACETATE 0.1 MG TAB PO SCH (08:50)
[2017-07-18] MEDS: POTASSIUM CHLORIDE 20 MEQ TABCR PO SCH (08:50)
[2017-07-18] MEDS: LACTOBACILLUS ACIDOPHILUS (FLORANEX) TAB PO SCH (08:51)
[2017-07-18] MEDS ORDERED: PANTOprazole SOD 40 MG TAB PO SCH (09:00)
[2017-07-18] MEDS ORDERED: SACCHAROMYCES BOUL (FLORASTOR) 250 MG CAP PO SCH (09:00)
[2017-07-18] MEDS ORDERED: MTR500 PO (11:12)
--- NOTE | 2017-07-18 11:21 | Discharge Instructions ---
Discharge Instructions Date of Service Jul 18, 2017. Admission Reason for Admission: Perforation Of Intestine Due To Dvt Of Gastroinest Discharge Discharge Diagnosis / Problem: perforated diverticulitis Discharge Goals Goal(s): Decrease discomfort, Diagnostic testing, Therapeutic intervention Activity Recommendations Activity Limitations: resume your previous activity . Instructions / Follow-Up Instructions / Follow-Up Ms. Nnacy jacobo were admitted for abdominal pain and distention and found to have perforated diverticulitis. You were treated with IV antibiotics one of which you will be continuing to receive at [facility]. Please follow the following instructions: -Go to [facility] as instructed to receive remaining 7 days of Rocephin 1g IV ( prescription provided) -Take metronidazole 500mg three times a day for another 7 days (prescription sent to [facility]) -please take probiotic [place] EPS 5 billion as recommended by Dr. Gaines to prevent future colonic complications -Please continue other home medications as prescribed prior to admission - protonix 40mg - Asthma - albuterol and advair - hypothyroidism - synthroid - Autonomic dysfunction - florinef 0.1 daily -Please stop taking Augmentin (antibiotic you were taking prior to your admission) -Please repeat CT abdomen and pelvis as prescribed in 1 week at [facility] -Follow up with Dr. Hay in 2 weeks -Follow up with your primary care doctor within 3-4 days Current Hospital Diet Patient's current hospital diet: Low Fiber Diet Discharge Diet Recommended Diet: AHA Diet (Heart Healthy) Pending Studies Studies pending at discharge: no Medical Emergencies . Who to Call and When: Medical Emergencies: If at any time you feel your situation is an emergency, please call 911 immediately. . Non-Emergent Contact Non-Emergency issues call your: Primary Care Provider . . "Provider Documentation" section prepared by Elloit Mariee. . VTE Core Measure Inpt VTE Proph given/why not?: SCD's, Contraindicated (due to possible surgical risk)
[2017-07-18] MEDS ORDERED: CEFTRIAXONE SOD INJ 1 GM ADDVIAL IV STA (11:30)
[2017-07-18] MEDS ORDERED: METRONIDAZOLE 250 MG TAB PO STA (11:30)
[2017-07-18] MEDS: CEFTRIAXONE SOD INJ 1 GM in DEXTROSE 5% ADD-VANTAGE 50ML 50 ML IV SCH (12:16)
[2017-07-18] MEDS ORDERED: NURSING VERBAL MED ORDER ONE (12:30)
[2017-07-18] MEDS ORDERED: METRONIDAZOLE 500 MG TAB PO SCH (13:15)
[2017-07-18 13:22] VITALS: BP 146/89; PULSE 75; TEMP 36.8; O2SAT 95
--- NOTE | 2017-07-18 19:22 | Discharge Summary ---
Discharge Summary Date of Service Jul 18, 2017. Discharge Summary Admission Date: Jul 11, 2017 at 21:00 Discharge Date: Jul 18, 2017 Discharge Disposition: Home Principal Diagnosis: perforated diverticulitis Problems/Secondary Diagnoses: autonomic dysfunction Elevated BP asthma hypothyroidism GERD Immunizations: Have You Had Influenza Vaccine: Unknown History of Tetanus Vaccine?: Yes History of Pneumococcal: Unknown History of Hepatitis B Vaccine: Unknown Procedures: none Consultations: Surgery Medication Reconciliation New Medications: Metronidazole (Metronidazole) 500 Mg Tab 500 MG PO Q8 for 7 Days, #21 TAB Continued Medications: Albuterol Hfa (Ventolin Hfa) 200 Puffs/88195 Mcg Aers 2 PUFFS INH Q4H PRN for SOB/Wheezing, #1 INHALER Albuterol Sulf (Proventil 0.083% 2.5MG/3ML) 2.5 Mg/3 Ml Nebu 2.5 MG INH QID PRN for SOB/Wheezing, EA Cetirizine Hcl (Zyrtec) 10 Mg Tab 10 MG PO QAM, TAB Fiber Laxative (Fiber Laxative) Ea 1 TAB PO BID Fish Oil ([place]-3) 1 Ea Cap 1 CAPSULE PO BID, 0 Refills Fludrocortisone Acetate (Florinef) 0.1 Mg Tab 0.1 MG PO DAILY, TAB Fluticasone Prop/Salmeterol (Advair Diskus 500/50 60 Dose) 1 Ea Aerp 1 PUFF INH BID Immune Globulin (Human) (Gammagard Liquid) Unknown Strength Inj 1 DOSE INJ Q28D INFUSION EVERY 28 DAYS Lansoprazole (Prevacid) 30 Mg Capcr 30 MG PO HS, CAP Levothyroxine Sodium (Synthroid) 75 Mcg Tab 75 MCG PO Q2D Levothyroxine Sodium (Synthroid) 50 Mcg Tab 50 MCG PO Q2D, TAB Simvastatin (Zocor) 20 Mg Tab 20 MG PO QPM, 0 Refills Triamcinolone Acetonide (Nasal (Nasacort Allergy 24Hr) 55 Mcg/Act Spr 2 SPRAYS YARIEL QAM PRN for . Discontinued Medications: Amoxicillin & Pot Clavulanate (Amoxicillin/Clavulanate P) 1 Tab Tab 875 MG PO BIDM for 9 Days, #17 TAB Discharge Exam Review of Systems: Constitutional: No fever, No chills Respiratory: No shortness of breath Cardiovascular: No chest pain Abdomen: No pain, No nausea, No vomiting, No diarrhea Genitourinary - Female: No dysuria Physical Exam: General Appearance: no apparent distress Eyes: normal inspection, sclerae normal Respiratory/Chest: lungs clear, normal breath sounds Cardiovascular: regular rate, rhythm, no murmur Abdomen / GI: normal bowel sounds, non tender, soft Extremities: + pertinent finding (1+ Pretibial edema (chronic)) Neurologic/Psychiatric: alert, oriented x 3 Skin: warm/dry Hospital Course 66 y/o female with a past medical history of Asthma, 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 Perforated Diverticulitis - Leukocytosis --> WBC normalized to 7.52 this AM - Received Rocephin 1g IV, day 7 - Discharged with Rx for MTU for Rocephin IV 1g x 7 days - Received Flagyl PO 500mg Q8H, day 7 - Discharged with Rx for additional 7 days - ID Consult --> Abx for 14 days total, has port for Rocephin on D/C - General Surgery Consult --> conservative management - repeat CT abdomen in 1 week script provided at [facility] - f/u with Dr. Hay in 2 weeks - Diet: tolerated low fiber diet Diarrhea - improved - C. Diff negative - Received IVF NSS 100mls/hr - Received probiotics - Recommended taking [place] EPS 5 billion probiotic dialy Autonomic dysfunction requiring florinef - Received Stress dose steroids - Now on home dose of Florinef 0.1 daily Elevated Blood Pressure - Patient has BP in 160's. Likely 2/2 to steroids. - Pt remarks that cardiology is aware---permissive HTN is tolerated due to autonomic dysfunction, risk of falls Hypokalemia - resolved - K 3.7 this AM - Received KCL 40meq 07/16 Asthma - Continued home Albuterol and Advair Hypothyroidism - Synthroid converted to PO home dosage - alternating 50mg and 75mg PO daily GERD - Continued Protonix 40mg IV daily DVTP: SCDs Code: Full Total Time Spent: Less than 30 minutes This includes examination of the patient, discharge planning, medication reconciliation, and communication with other providers. Discharge Instructions Please refer to the electronic Patient Visit Report (Discharge Instructions) for additional information. Additional Copies To Joselito Harrington M.D. Reviewed: Pt Seen/Exam by Me History Pt has had more solid bowel movements since started regular diet. No abd pain, n/v. She feels she is doing well. Pt is tolerating PO without issue. No chest pain or SOB. Agree with HPI/ROS as noted by resident General Appearance: WD/WN, no apparent distress Respiratory: normal breath sounds, no respiratory distress Cardiovascular: normal peripheral pulses, regular rate, rhythm Gastrointestinal: non tender, soft Extremities: non-tender, no pedal edema Neurologic/Psychiatric: alert, normal mood/affect, oriented x 3 Skin Characteristics: normal color, warm/dry Assessment/Plan Agree with plan as outlined above Diverticulitis with perf, doing well with conservative management Flagyl to PO planning for a total of 14 days of abx use which will include daily MTU rocephin--port in place for immunodeficiency dx Had rocephin dose prior to d/c f/u with surgery for possible repeat CT AP at a later date Advised probiotics
[2017-07-19] MEDS ORDERED: LEVOTHYROXINE 75 MCG TAB PO SCH (06:00)
[2017-07-19] MEDS ORDERED: MULT-506 PO (08:43)
== END 2017-07-18 14:45 | disposition home or self-care (01) | DRG 392 ==
LOC: EDBD 16:31 → C.EDB 16:34 → C.MSN 21:00 → ENRESERV 21:15
PROVIDERS: ADMIT Student in an Organized Health Care Education/Training Program; ATTEND Family Medicine
DX: K57.20 Diverticulitis of large intestine with perforation and abscess without bleeding (principal); D80.3 Selective deficiency of immunoglobulin G [IgG] subclasses; D80.4 Selective deficiency of immunoglobulin M [IgM]; E87.6 Hypokalemia; J45.909 Unspecified asthma, uncomplicated; I10 Essential (primary) hypertension; I95.89 Other hypotension; E03.9 Hypothyroidism, unspecified; K21.9 Gastro-esophageal reflux disease without esophagitis; E78.5 Hyperlipidemia, unspecified; E78.00 Pure hypercholesterolemia, unspecified; Z79.899 Other long term (current) drug therapy; Z79.52 Long term (current) use of systemic steroids; Z91.81 History of falling; Z86.718 Personal history of other venous thrombosis and embolism; Z86.711 Personal history of pulmonary embolism

== ENCOUNTER → 2017-07-24 | Outpatient (CLI) | payer BC ==
[~2017-07-24] MED LIST changes: -AMOX1TAB43 PO; +MTR500 PO; +MULT-506 PO; -OMEG10007 PO; -PRED10TA PO; +[UNRECOGNIZED DRUG - CODE] INJ
[2017-07-24 15:52] LABS: BLOOD UREA NITROGEN 7 mg/dl (7-18); CALCIUM 10.1 mg/dl (8.5-10.1); CARBON DIOXIDE 27 mmol/L (21-32); CREATININE 0.86 mg/dl (0.60-1.20); GLUCOSE 150 mg/dl (70-99); POTASSIUM 3.1 mmol/L (3.5-5.1); SODIUM 138 mmol/L (136-145)
== END | disposition home or self-care (01) ==
LOC: C.LAB1850 14:38
PROVIDERS: ATTEND Physician Assistant Medical
DX: E87.6 Hypokalemia (principal)

== ENCOUNTER → 2017-07-27 | Outpatient (CLI) | payer BC ==
[~2017-07-27] MED LIST changes: +OPTIRAY 320 IV PRN
--- NOTE | 2017-07-27 11:52 | DIAGNOSTIC IMAGING REPORT ---
ABD/PELVIS IV AND ORAL CONT CT DOSE: 1037.47 mGy.cm HISTORY: Diverticulitis K57.20 Perforation of sigmoid colon due to diverticulitisFOLLOW- TECHNIQUE: Multiaxial CT images of the abdomen and pelvis were performed following the use of intravenous and oral contrast. A dose lowering technique was utilized adhering to the principles of ALARA. COMPARISON STUDY: 07/11/2017 FINDINGS: Improved exam overall. Lung bases are clear. Mild fatty replacement of the liver. Gallbladder is negative for distention. Multiple renal cysts unchanged. Diffuse fatty replacement of the pancreas. Moderate wall thickening of the proximal to mid stomach most likely technical. Scattered colonic diverticuli. Normal appendix. Findings of acute proximal to mid sigmoid diverticulitis improved from the prior study. Infiltrative change has diminished, with diminished thickening of the fascial planes are within the low soft tissue pelvis. No evidence for abscess or collection. No obstructive change. No evidence of this time for free air within the abdomen or pelvic region. IMPRESSION: 1. Improved exam. 2. Improved proximal to mid sigmoid diverticulitis with diminishedpericolonic infiltrative change and complete resolution of the extraluminal air. 3. Mild residual infiltrative change of the sigmoid with mild residual thickening of the sigmoid wall. 4. No evidence for drainable abscess or collection. The above report was generated using voice recognition software. It may contain grammatical, syntax or spelling errors. Electronically signed by: Nicolas Sinclair M.D. 07/27/2017 11:50 AM Dictated Date/Time: 07/27/2017 11:47 AM
== END | disposition home or self-care (01) ==
LOC: C.CTS 10:44
PROVIDERS: ATTEND Surgery
DX: K57.20 Diverticulitis of large intestine with perforation and abscess without bleeding (principal)

== ENCOUNTER → 2017-08-01 | Outpatient (CLI) | payer BC ==
[~2017-08-01] MED LIST changes: -OPTIRAY 320 IV PRN
[2017-08-01 13:57] LABS: BLOOD UREA NITROGEN 10 mg/dl (7-18); CALCIUM 10.7 mg/dl (8.5-10.1); CARBON DIOXIDE 25 mmol/L (21-32); CREATININE 1.02 mg/dl (0.60-1.20); GLUCOSE 158 mg/dl (70-99); POTASSIUM 3.7 mmol/L (3.5-5.1); SODIUM 138 mmol/L (136-145)
== END | disposition home or self-care (01) ==
LOC: C.LABBC 11:08
PROVIDERS: ATTEND Physician Assistant Medical
DX: E87.6 Hypokalemia (principal)

== ENCOUNTER → 2017-08-16 | Outpatient (CLI) | payer BC ==
[2017-08-16 16:01] LABS: BLOOD UREA NITROGEN 14 mg/dl (7-18); CALCIUM 10.3 mg/dl (8.5-10.1); CARBON DIOXIDE 22 mmol/L (21-32); CREATININE 1.01 mg/dl (0.60-1.20); GLUCOSE 183 mg/dl (70-99); POTASSIUM 3.2 mmol/L (3.5-5.1); SODIUM 132 mmol/L (136-145)
== END | disposition home or self-care (01) ==
LOC: C.LAB1850 14:21
PROVIDERS: ATTEND Physician Assistant Medical
DX: E87.6 Hypokalemia (principal)

== ENCOUNTER → 2017-10-09 | Outpatient (CLI) | payer BC | END | disposition home or self-care (01) | LOC: C.RDSM 14:00 | PROVIDERS: ATTEND Physical Medicine & Rehabilitation Sports Medicine | DX: Z96.651 Presence of right artificial knee joint (principal); M25.562 Pain in left knee ==

== ENCOUNTER → 2017-10-17 | Outpatient (CLI) | payer BC ==
[~2017-10-17] MED LIST changes: +AMOX875T PO; +DOCU-94 PO; +LACT1CAP6 PO; +MCRK/20 PO; +OMEG10007 PO; +ONDA4TAB10 SL; +PSYL48.58 PO; +RANI300T2 PO; +SACC250C PO; +SACC250C3 PO; +TRIA37.5 PO; +ZOFRAN ODT 4MG PO; +[UNRECOGNIZED DRUG - CODE] IV
[2017-10-17 12:34] LABS: ALT/SGPT 23 U/L (12-78); AST/SGOT 17 U/L (15-37); BLOOD UREA NITROGEN 10 mg/dl (7-18); CALCIUM 9.7 mg/dl (8.5-10.1); CARBON DIOXIDE 24 mmol/L (21-32); CHOLESTEROL 139 mg/dl (0-200); CREATININE 0.95 mg/dl (0.60-1.20); GLUCOSE 119 mg/dl (70-99); POTASSIUM 3.3 mmol/L (3.5-5.1); SODIUM 139 mmol/L (136-145)
[2017-10-17 12:47] LABS: ALKALINE PHOSPHATASE 147 U/L (45-117); LDL CHOLESTEROL CALCULATED 46 mg/dl; TOTAL PROTEIN 6.9 gm/dl (6.4-8.2)
== END | disposition home or self-care (01) ==
LOC: C.LAB 16:18
PROVIDERS: ATTEND Internal Medicine Pulmonary Disease
DX: J45.909 Unspecified asthma, uncomplicated (principal); E78.5 Hyperlipidemia, unspecified; E03.9 Hypothyroidism, unspecified; D80.1 Nonfamilial hypogammaglobulinemia; I95.1 Orthostatic hypotension; K57.90 Diverticulosis of intestine, part unspecified, without perforation or abscess without bleeding; J30.9 Allergic rhinitis, unspecified

== ENCOUNTER 2017-10-20 16:22 | Emergency (ER) | payer BC ==
[~2017-10-20] VITALS: Ht 157.5 cm; Wt 93.5 kg
[~2017-10-20 16:22] MED LIST changes: -AMOX875T PO; -DOCU-94 PO; -LACT1CAP6 PO; -MCRK/20 PO; -OMEG10007 PO; -ONDA4TAB10 SL; -PSYL48.58 PO; -RANI300T2 PO; -SACC250C PO; -SACC250C3 PO; -TRIA37.5 PO; -ZOFRAN ODT 4MG PO; -[UNRECOGNIZED DRUG - CODE] IV
[2017-10-20] MEDS ORDERED: ONDANSETRON INJ 2 MG/ML 2 ML VIAL IV STA (16:27)
[2017-10-20] MEDS ORDERED: SODIUM CHLORIDE 0.9% 1000ML 1,000 ML IV STA (16:27)
[2017-10-20] MEDS ORDERED: ACETAMINOPHEN IV 100 ML IV STA (16:33)
--- NOTE | 2017-10-20 16:33 | EMERGENCY ROOM VISIT NOTE ---
History Report prepared by Binta: Navya Alaniz Under the Supervision of: Dr. Ronen Truong M.D. First contact with patient: 16:24 Stated Complaint: LOWER AB PAIN History of Present Illness The patient is a 67 year old female who presents to the Emergency Room with complaints of severe lower abdominal beginning one week bar captain. She states she had severe bloating last night and had chills and nausea this morning. She denies a cough, diarrhea, or congestion. She reports she has been constipated but states her last bowel movement was this morning and there was no blood. The patient also describes her feeling as "pressure on her abdomen." She states that she was here at the hospital in July 2017 for perforated diverticulitis. She notes she was referred here in July by a doctor at [facility]. She has not had surgery because she reports the doctors told her he was "too high risk due to her preexisting conditions such as chronic asthma, syncopal episodes, and immunodeficiency." She reports she gets an antibody infusion every 28 days. Onset: one week bar captain Position: abdomen (lower) Symptom Intensity: severe Quality: pressure Associated Symptoms: + chills, + nausea, No cough, No hematochezia, No diarrhea Note: Positive bloating and constipation. Negative congestion. Review of Systems See HPI for pertinent positives and negatives. A total of ten systems were reviewed and were otherwise negative. Past Medical & Surgical Medical Problems: (1) Asthma (2) Breast Biopsy 2006 (3) Chronic asthmatic bronchitis (4) Gastroesophageal reflux disease (5) GERD (6) Hx of deep venous thrombosis (7) Hx pulmonary embolism (8) Hypercholesterolemia (9) Hyperlipidemia (10) Hypertension (11) Hypokalemia (12) Hypothyroidism (13) Hysterectomy 1989 (14) Knee Replacement Surgery (15) Perforation of intestine due to diverticulitis of gastrointestinal tract (16) Pneumonia (17) Respiratory failure with hypoxia (18) Rhinitis (19) Right Rotator Cuff Repair 2004 (20) Seasonal Allergies (21) Vaginal Repair 1999 Family History Hypertension Lung disease Social History Smoking Status: Former Smoker Alcohol Use: occasionally Drug Use: none Marital Status: Housing Status: lives with family Occupation Status: retired Current/Historical Medications Scheduled Amoxicillin & Pot Clavulanate (Augmentin 875-125 mg), 1 TAB PO TID Cetirizine Hcl (Zyrtec), 10 MG PO QAM Docusate Sodium (Colace), 1 CAP PO BID Fish Oil ([place]-3), 1 CAP PO BID Fludrocortisone Acetate (Florinef), 0.1 MG PO DAILY Fluticasone Prop/Salmeterol (Advair Diskus 500/50 60 Dose), 1 PUFF INH BID Immune Globulin (Human) (Gammagard Liquid), 1 DOSE INJ Q28D Lactobacillus (Probiotic), 2 CAP PO QAM Lactobacillus (Probiotic), 1 CAP PO QPM Lansoprazole (Prevacid), 30 MG PO HS Levothyroxine Sodium (Synthroid), 50 MCG PO DAILY Multivitamin (Multivitamin), 1 TAB PO DAILY Ondasetron Odt (Zofran Odt), 4 MG SL Q6H Potassium Chloride (Potassium Chloride ER), 40 MEQ PO DAILY Psyllium (Metamucil Original Textur), 2 TBS PO QAM Ranitidine Hcl (Zantac), 300 MG PO HS Saccharomyces Boulardii (Florastor), 1 CAP PO BID Simvastatin (Zocor), 20 MG PO QPM Triamterene/Hctz (Dyazide 37.5MG/25MG), 0.5 TAB PO DAILY Scheduled PRN Albuterol Hfa (Ventolin Hfa), 2 PUFFS INH Q4H PRN for SOB/Wheezing Albuterol Sulf (Proventil 0.083% 2.5MG/3ML), 2.5 MG INH QID PRN for SOB/Wheezing Triamcinolone Acetonide (Nasal (Nasacort Allergy 24Hr), 2 SPRAYS YARIEL QAM PRN for . Allergies Coded Allergies: Erythromycin (Verified Allergy, Severe, NAUSEA, DRY HEAVES, 10/20/17) Levofloxacin (Verified Allergy, Severe, Anaphylaxis, 10/20/17) POLLEN (Verified Allergy, Intermediate, SHORTNESS OF BREATH, 10/20/17) Aspirin (Verified Allergy, Unknown, HIVES, 10/20/17) Fluticasone (Verified Adverse Reaction, Unknown, DIZZINESS, 10/20/17) Physical Exam Vital Signs Date Time Temp Pulse Resp B/P (MAP) Pulse Ox O2 Delivery O2 Flow Rate FiO2 10/20/17 21:33 80 20 133/86 94 10/20/17 18:36 84 18 137/77 95 Room Air 10/20/17 16:37 36.8 95 18 148/91 95 Room Air Physical Exam GENERAL: Awake, alert, fatigued-appearing, in no distress HENT: Normocephalic, atraumatic. Oropharynx unremarkable. Dry mucus membranes. EYES: Normal conjunctiva. Sclera non-icteric. NECK: Supple. No nuchal rigidity. FROM. No JVD. RESPIRATORY: Clear to auscultation. CARDIAC: Regular rate, normal rhythm. Extremities warm and well perfused. Pulses equal. ABDOMEN: Soft, non-distended. No rebound or guarding. No masses. Mild LLQ tenderness. No peritoneal signs. RECTAL: Deferred. MUSCULOSKELETAL: Chest examination reveals no tenderness. The back is symmetrical on inspection without obvious abnormality. There is no CVA tenderness to palpation. No joint edema. LOWER EXTREMITIES: Calves are equal size bilaterally and non-tender. No edema. No discoloration. NEURO: Normal sensorium. No sensory or motor deficits noted. SKIN: No rash or jaundice noted. Medical Decision & Procedures ER Provider Diagnostic Interpretation: Radiology results as stated below per my review and radiologist interpretation: ABD/PELVIS IV CONTRAST ONLY CT DOSE: 1045.22 mGy.cm HISTORY: Flank pain LLQ pain r/o diveriticulitis TECHNIQUE: Multiaxial CT images of the abdomen and pelvis were performed following the use of intravenous contrast. A dose lowering technique was utilized adhering to the principles of ALARA. COMPARISON STUDY: 07/27/2017 FINDINGS: The lung bases are clear. Fatty infiltration of the liver. Several renal cysts considered stable from the prior exam. No evidence for hydronephrosis. Pancreas is uniform. Pelvis is remarkable for acute proximal to mid sigmoid diverticulitis. Pericolonic infiltrative change considered moderate to rather significant. No evidence for drainable abscess or collection. Moderate colonic wall thickening considered chronic in this patient. Bladder is midline. No free fluid within the pelvic cul-de-sac. IMPRESSION: 1. Acute proximal to mid sigmoid diverticulitis. 2. Moderate pericolonic infiltrative change. 3. No evidence for abscess, collection, or obstruction. The above report was generated using voice recognition software. It may contain grammatical, syntax or spelling errors. Electronically signed by: Nicolas Sinclair M.D. 10/20/2017 7:08 PM Laboratory Results 10/20/17 17:41 Red Blood Count 4.42, Mean Corpuscular Volume 81.4, Mean Corpuscular Hemoglobin 26.2, Mean Corpuscular Hemoglobin Concent 32.2, Mean Platelet Volume 10.3, Neutrophils (%) (Auto) 74.2, Lymphocytes (%) (Auto) 14.3, Monocytes (%) (Auto) 10.1, Eosinophils (%) (Auto) 0.9, Basophils (%) (Auto) 0.2, Neutrophils # (Auto ) 8.73, Lymphocytes # (Auto) 1.68, Monocytes # (Auto) 1.19, Eosinophils # (Auto ) 0.11, Basophils # (Auto) 0.02 10/20/17 17:41 Test 10/20/17 17:24 10/20/17 17:41 10/20/17 17:42 Influenza Type A (RT-PCR) Neg for Influ A (NEG) Influenza Type B (RT-PCR) Neg for Influ B (NEG) White Blood Count 11.77 K/uL (4.8-10.8) Red Blood Count 4.42 M/uL (4.2-5.4) Hemoglobin 11.6 g/dL (12.0-16.0) Hematocrit 36.0 % (37-47) Mean Corpuscular Volume 81.4 fL (80-100) Mean Corpuscular Hemoglobin 26.2 pg (25-34) Mean Corpuscular Hemoglobin Concent 32.2 g/dl (32-36) Platelet Count 249 K/uL (130-400) Mean Platelet Volume 10.3 fL (7.4-10.4) Neutrophils (%) (Auto) 74.2 % Lymphocytes (%) (Auto) 14.3 % Monocytes (%) (Auto) 10.1 % Eosinophils (%) (Auto) 0.9 % Basophils (%) (Auto) 0.2 % Neutrophils # (Auto) 8.73 K/uL (1.4-6.5) Lymphocytes # (Auto) 1.68 K/uL (1.2-3.4) Monocytes # (Auto) 1.19 K/uL (0.11-0.59) Eosinophils # (Auto) 0.11 K/uL (0-0.5) Basophils # (Auto) 0.02 K/uL (0-0.2) RDW Standard Deviation 53.0 fL (36.4-46.3) RDW Coefficient of Variation 17.6 % (11.5-14.5) Immature Granulocyte % (Auto) 0.3 % Immature Granulocyte # (Auto) 0.04 K/uL (0.00-0.02) Anion Gap 8.0 mmol/L (3-11) Est Creatinine Clear Calc Drug Dose 61.5 ml/min Estimated GFR () 73.6 Estimated GFR (Non- 63.5 BUN/Creatinine Ratio 13.8 (10-20) Lactic Acid Level 0.9 mmol/L (0.4-2.0) Calcium Level 9.3 mg/dl (8.5-10.1) Total Bilirubin 0.6 mg/dl (0.2-1) Direct Bilirubin 0.1 mg/dl (0-0.2) Aspartate Amino Transf (AST/SGOT) 18 U/L (15-37) Alanine Aminotransferase (ALT/SGPT) 22 U/L (12-78) Alkaline Phosphatase 139 U/L (45-117) Total Protein 6.7 gm/dl (6.4-8.2) Albumin 2.6 gm/dl (3.4-5.0) Lipase 103 U/L (73-393) Urine Color YELLOW Urine Appearance CLEAR (CLEAR) Urine pH 6.5 (4.5-7.5) Urine Specific [place] 1.008 (1.000-1.030) Urine Protein NEG (NEG) Urine Glucose (UA) NEG (NEG) Urine Ketones NEG (NEG) Urine Occult Blood NEG (NEG) Urine Nitrite NEG (NEG) Urine Bilirubin NEG (NEG) Urine Urobilinogen NEG (NEG) Urine Leukocyte Esterase NEG (NEG) Laboratory results reviewed by me Medications Administered Medications (Trade) Dose Ordered Sig/Ross Route Start Time Stop Time Status Last Admin Dose Admin Sodium Chloride 1,000 ml @ 999 mls/hr Q1H1M STAT IV 10/20/17 16:27 10/20/17 17:27 DC 10/20/17 17:25 999 MLS/HR Ondansetron HCl (Zofran Inj) 4 mg NOW STAT IV 10/20/17 16:27 10/20/17 16:31 DC 10/20/17 17:25 4 MG Acetaminophen 100 ml @ 400 mls/hr NOW STAT IV 10/20/17 16:33 10/20/17 16:47 DC 10/20/17 17:25 400 MLS/HR Ampicillin Sodium/ Sulbactam Sodium 3000 mg/Sodium Chloride 108 ml @ 200 mls/hr ONE STAT IV 10/20/17 19:25 10/20/17 19:57 DC 10/20/17 19:57 200 MLS/HR Amoxicillin/ Clavulanate Potassium (Augmentin Tab) 875 mg NOW STAT PO 10/20/17 21:01 10/20/17 21:03 DC 10/20/17 21:16 875 MG ED Course 1625 : The patient was evaluated in room B8. A complete history and physical exam was performed. 1926: I checked on the patient at this time. They were resting comfortably. 2099: I reevaluated the patient. Discussed results and discharge instructions: She verbalized understanding and agreement. The patient is ready for discharge. Medical Decision I reviewed the patient's past medical history, medications, and the nursing notes as described above. Differential diagnosis: Etiologies such as appendicitis, diverticulitis, PUD, biliary pathology, UTI, pancreatitis, obstruction, mesenteric ischemia, aortic pathology, infections, inflammatory bowel disease, renal colic, as well as others were entertained. The patient is a 67-year-old woman with a past medical history of diverticulitis complicated by perforation I was managed medically back in July per hpi. On arrival the patient is fatigued and uncomfortable but no acute distress, afebrile stable vital signs. Patient has mild left lower quadrant tenderness but no peritoneal signs. WBC 11 and lactate within normal limits. Chemistry unremarkable. CT findings consistent with acute sigmoid diverticulitis. Findings discussed with patient and given that she is relatively well-appearing, with reassuring vital signs and lab work, as well as with CT negative for any complicating findings, it is reasonable to give the patient a initial IV dose of Unasyn here followed by a course of Augmentin with close follow-up outpatient. Patient was given strict return instructions should she become worse in any way. Patient is agreeable with this plan. Findings and plan for follow-up reviewed with patient. Patient agreeable and d/c 'd per discharge instructions. Medication Reconcilliation Current Medication List: was personally reviewed by me Blood Pressure Screening Patient's blood pressure: Normal blood pressure Blood pressure disposition: Did not require urgent referral Impression Primary Impression: Diverticulitis of sigmoid colon Scribe Attestation The scribe's documentation has been prepared under my direction and personally reviewed by me in its entirety. I confirm that the note above accurately reflects all work, treatment, procedures, and medical decision making performed by me. Departure Information Dispostion Home / Self-Care Prescriptions Ondasetron Odt (ZOFRAN ODT) 4 Mg Tab 4 MG SL Q6H for Nausea, #10 TAB Prov: Ronen Truong M.D. 10/20/17 Saccharomyces Boulardii (Florastor) 250 Mg Cap 1 CAP PO BID for 10 Days, #20 CAP Prov: Ronen Truong M.D. 10/20/17 Docusate Sodium (COLACE) 100 Mg Cap 1 CAP PO BID for 15 Days, #30 CAP Prov: Ronen Truong M.D. 10/20/17 Amoxicillin & Pot Clavulanate (Augmentin 875-125 mg) 1 Tab Tab 1 TAB PO TID for 10 Days, #30 TAB Prov: Ronen Truong M.D. 10/20/17 Referrals No Doctor, Assigned (PCP) Forms Call Back Authorization, HOME CARE DOCUMENTATION FORM, IMPORTANT VISIT INFORMATION Patient Instructions ED Diverticulitis, My [facility] Additional Instructions Please follow up with your primary care physician in the next 1-3 days for re- evaluation. You were found to have diverticulitis. Otherwise, your exam, lab results, and CT scan did not show signs of an emergent condition at this time. Acetaminophen for pain and fevers as needed. Augmentin as directed. Florastor, probiotic, to help prevent antibiotic associated diarrhea. Colace to help keep prevent constipation. Zofran as needed for nausea. Drink plenty of fluids to ensure hydration. Return to the emergency department for worsening symptoms as described in the accompanying instructions.
[2017-10-20 16:37] VITALS: TEMP 36.8; Ht 157.5 cm; Wt 93.5 kg
[2017-10-20] MEDS ORDERED: OPTIRAY 320 IV PRN (16:45)
[2017-10-20] MEDS ORDERED: TRIA37.5 PO (17:47)
[2017-10-20] MEDS ORDERED: PSYL48.58 PO (17:47)
[2017-10-20] MEDS ORDERED: MCRK/20 PO (17:47)
[2017-10-20] MEDS ORDERED: RANI300T2 PO (17:47)
[2017-10-20] MEDS ORDERED: OMEG10007 PO (17:47)
[2017-10-20] MEDS ORDERED: LACT1CAP6 PO ×2 (17:47)
[2017-10-20 18:10] LABS: INFLUENZA A PCR Neg for Influ A (NEG); INFLUENZA B PCR Neg for Influ B (NEG)
[2017-10-20 18:11] LABS: BASO % 0.2 %; BASO ABS # 0.02 K/uL (0-0.2); EOS % 0.9 %; EOS ABS # 0.11 K/uL (0-0.5); HEMOGLOBIN 11.6 g/dL (12.0-16.0); IG# 0.04 K/uL (0.00-0.02); LYMPH % 14.3 %; LYMPH ABS # 1.68 K/uL (1.2-3.4); MEAN CELL VOLUME 81.4 fL (80-100); MEAN CORPUSCULAR HEMOGLOBIN 26.2 pg (25-34); MEAN CORPUSCULAR HGB CONC 32.2 g/dl (32-36); MEAN PLATELET VOLUME 10.3 fL (7.4-10.4); MONO % 10.1 %; MONO ABS # 1.19 K/uL (0.11-0.59); NEUT % 74.2 %; NEUT ABS # 8.73 K/uL (1.4-6.5); PLATELET COUNT 249 K/uL (130-400); RED CELL DISTRIBUTION WIDTH CV 17.6 % (11.5-14.5); WHITE BLOOD COUNT 11.77 K/uL (4.8-10.8)
[2017-10-20 18:33] LABS: ALBUMIN 2.6 gm/dl (3.4-5.0); CALCIUM 9.3 mg/dl (8.5-10.1); CREATININE 0.92 mg/dl (0.60-1.20); POTASSIUM 3.3 mmol/L (3.5-5.1)
[2017-10-20 18:36] LABS: TOTAL PROTEIN 6.7 gm/dl (6.4-8.2)
--- NOTE | 2017-10-20 19:09 | DIAGNOSTIC IMAGING REPORT ---
ABD/PELVIS IV CONTRAST ONLY CT DOSE: 1045.22 mGy.cm HISTORY: Flank pain LLQ pain r/o diveriticulitis TECHNIQUE: Multiaxial CT images of the abdomen and pelvis were performed following the use of intravenous contrast. A dose lowering technique was utilized adhering to the principles of ALARA. COMPARISON STUDY: 07/27/2017 FINDINGS: The lung bases are clear. Fatty infiltration of the liver. Several renal cysts considered stable from the prior exam. No evidence for hydronephrosis. Pancreas is uniform. Pelvis is remarkable for acute proximal to mid sigmoid diverticulitis. Pericolonic infiltrative change considered moderate to rather significant. No evidence for drainable abscess or collection. Moderate colonic wall thickening considered chronic in this patient. Bladder is midline. No free fluid within the pelvic cul-de-sac. IMPRESSION: 1. Acute proximal to mid sigmoid diverticulitis. 2. Moderate pericolonic infiltrative change. 3. No evidence for abscess, collection, or obstruction. The above report was generated using voice recognition software. It may contain grammatical, syntax or spelling errors. Electronically signed by: Nicolas Sinclair M.D. 10/20/2017 7:08 PM Dictated Date/Time: 10/20/2017 7:05 PM
[2017-10-20] MEDS ORDERED: AMPICILLIN/SULBACTAM SOD INJ 3,000 MG in SODIUM CHLORIDE 0.9% 100ML 100 ML IV STA (19:25)
[2017-10-20] MEDS ORDERED: AMOX875T PO (20:59)
[2017-10-20] MEDS ORDERED: DOCU-94 PO (21:01)
[2017-10-20] MEDS ORDERED: AMOXICILLIN/CLAVULANATE TAB 875 MG TAB PO STA (21:01)
[2017-10-20] MEDS ORDERED: SACC250C3 PO (21:01)
[2017-10-20] MEDS ORDERED: ONDA4TAB10 SL (21:01)
[2017-10-20] MEDS ORDERED: EMPTY 8 DRAM VIAL ONE (21:05)
[2017-10-20 21:33] VITALS: BP 133/86; PULSE 80; O2SAT 94
== END 2017-10-20 21:05 | disposition home or self-care (01) ==
LOC: EDBD 16:22 → C.EDB 16:24
DX: K57.32 Diverticulitis of large intestine without perforation or abscess without bleeding (principal); J45.909 Unspecified asthma, uncomplicated; K21.9 Gastro-esophageal reflux disease without esophagitis; Z86.718 Personal history of other venous thrombosis and embolism; Z86.711 Personal history of pulmonary embolism; I10 Essential (primary) hypertension; E78.5 Hyperlipidemia, unspecified; E78.00 Pure hypercholesterolemia, unspecified; E03.9 Hypothyroidism, unspecified; Z90.710 Acquired absence of both cervix and uterus; Z96.659 Presence of unspecified artificial knee joint; Z87.01 Personal history of pneumonia (recurrent); Z98.890 Other specified postprocedural states; Z87.891 Personal history of nicotine dependence; Z82.49 Family history of ischemic heart disease and other diseases of the circulatory system; Z79.899 Other long term (current) drug therapy; Z88.1 Allergy status to other antibiotic agents; Z88.6 Allergy status to analgesic agent; Z88.8 Allergy status to other drugs, medicaments and biological substances; Z91.09 Other allergy status, other than to drugs and biological substances

== ENCOUNTER 2017-10-25 12:04 | Inpatient (IN) | payer BC, OTHER ==
[~2017-10-25] VITALS: Ht 162.6 cm; Wt 88.0 kg
[~2017-10-25 12:04] MED LIST changes: +AMOX875T PO; +DOCU-94 PO; -FIBER PO; +LACT1CAP6 PO; -LEVO75TA PO; +MCRK/20 PO; -MTR500 PO; +OMEG10007 PO; +ONDA4TAB10 SL; +PSYL48.58 PO; +RANI300T2 PO; +SACC250C3 PO; +TRIA37.5 PO
[2017-10-25] MEDS ORDERED: SODIUM CHLORIDE 0.9% 1000ML 1,000 ML IV STA (12:32)
[2017-10-25] MEDS ORDERED: ONDANSETRON INJ 2 MG/ML 2 ML VIAL IV STA (12:32)
[2017-10-25] MEDS ORDERED: OPTIRAY 320 IV PRN (12:45)
[2017-10-25 13:22] LABS: BASO % 0.2 %; BASO ABS # 0.03 K/uL (0-0.2); EOS % 0.4 %; EOS ABS # 0.08 K/uL (0-0.5); HEMATOCRIT 37.1 % (37-47); HEMOGLOBIN 12.3 g/dL (12.0-16.0); IG# 0.06 K/uL (0.00-0.02); LYMPH ABS # 1.08 K/uL (1.2-3.4); MEAN CELL VOLUME 80.8 fL (80-100); MEAN CORPUSCULAR HEMOGLOBIN 26.8 pg (25-34); MEAN CORPUSCULAR HGB CONC 33.2 g/dl (32-36); MEAN PLATELET VOLUME 10.6 fL (7.4-10.4); MONO % 6.1 %; MONO ABS # 1.11 K/uL (0.11-0.59); NEUT ABS # 15.69 K/uL (1.4-6.5); PLATELET COUNT 295 K/uL (130-400); RED CELL DISTRIBUTION WIDTH CV 17.8 % (11.5-14.5); RED CELL DISTRIBUTION WIDTH SD 52.3 fL (36.4-46.3); WHITE BLOOD COUNT 18.05 K/uL (4.8-10.8)
[2017-10-25 13:41] LABS: ALBUMIN 2.8 gm/dl (3.4-5.0); CALCIUM 10.6 mg/dl (8.5-10.1); CREATININE 0.97 mg/dl (0.60-1.20); POTASSIUM 3.4 mmol/L (3.5-5.1)
[2017-10-25 13:44] LABS: TOTAL PROTEIN 7.6 gm/dl (6.4-8.2)
[2017-10-25] MEDS ORDERED: [UNRECOGNIZED DRUG - CODE] IV (14:00)
[2017-10-25] MEDS ORDERED: AMOX875T PO (14:16)
[2017-10-25] MEDS ORDERED: SACC250C PO (14:16)
[2017-10-25] MEDS ORDERED: DOCU-94 PO (14:16)
[2017-10-25] MEDS ORDERED: ZOFRAN ODT 4MG PO (14:16)
--- NOTE | 2017-10-25 14:52 | DIAGNOSTIC IMAGING REPORT ---
CT SCAN OF THE ABDOMEN AND PELVIS WITH IV CONTRAST CLINICAL HISTORY: Left lower quadrant abdominal pain. COMPARISON STUDY: Abdominal CT dated 10/20/2017. TECHNIQUE: Following the IV administration of 94 cc of Optiray 320, CT scan of the abdomen and pelvis is performed from the lung bases to the proximal femora. Images are reviewed in the axial, sagittal, and coronal planes. IV contrast was administered without complication. A dose lowering technique was utilized adhering to the principles of ALARA. CT DOSE: 856.48 mGycm FINDINGS: Lung bases: The heart is normal in size and without pericardial effusion. The lung bases are clear noting bibasilar atelectasis. There is a small hiatal hernia. Liver: The contrast-enhanced liver is top normal in size measuring 17.4 cm in length. The liver demonstrates diffusely diminished attenuation consistent with hepatic steatosis. There is no intrahepatic biliary ductal dilatation. The hepatic veins and portal veins are patent. Gallbladder: Unremarkable. Spleen: Normal in size and attenuation. Pancreas: Moderately atrophic and grossly unremarkable. Adrenal glands: Unremarkable. Kidneys: The contrast enhanced kidneys are atrophic and without hydronephrosis. The kidneys enhance symmetrically. Numerous bilateral renal cysts measure up to 3.8 cm. Additional subcentimeter cortical hypodensities also likely represent cysts but are too small for definitive characterization. Abdominal vasculature: The abdominal aorta is normal in course and caliber. Bowel: There is moderate to advanced diverticulosis of the sigmoid colon. Wall thickening with pericolic inflammation and fluid is again seen involving the proximal sigmoid colon consistent with acute diverticulitis. No organized fluid collection is seen suggest abscess. There is mild wall thickening with pericolonic infiltration seen involving the left colon extending from the distal transverse colon to the sigmoid colon suggesting superimposed colitis. No bowel obstruction is seen. The appendix is well-visualized and normal. Peritoneum: There is no intraperitoneal free air or abdominal ascites. There is a small fat-containing umbilical hernia. Lymphadenopathy: None. Pelvic viscera: The bladder is normal as visualized. The uterus is surgically absent. No adnexal lesion is seen. Skeletal structures: The skeletal structures are osteopenic. There is moderate lumbosacral spondylosis. No lytic or blastic lesions are seen. IMPRESSION: 1. Findings of acute diverticulitis involving the proximal sigmoid colon are similar appearance to study dated 10/20/2017. No intraperitoneal free air is seen and there is no evidence of abscess. 2. There is mild edema and pericolonic inflammation seen involving the left colon extending from the distal transverse colon to the sigmoid. The appearance is consistent with a mild superimposed colitis. Clinical correlation will be required. 3. Hepatic steatosis. 4. Additional findings as above. Electronically signed by: Taz Talavera M.D. 10/25/2017 2:51 PM Dictated Date/Time: 10/25/2017 2:43 PM
[2017-10-25] MEDS ORDERED: PIPERACILLIN/TAZOBACTAM 4.5 GM/100ML D5W IV STA (15:38)
[2017-10-25] MEDS ORDERED: FENTANYL CITRATE INJ 50 MCG/1 ML 2 ML VIAL IV STA (16:49)
[2017-10-25] MEDS ORDERED: METRONIDAZOLE 500MG / 100ML NSS IV STA (16:49)
--- NOTE | 2017-10-25 17:01 | History and Physical ---
History & Physical Date & Time of Service: Oct 25, 2017 at 16:57 Chief Complaint: EVAL Primary Care Physician: Joselito Harrington M.D. History of Present Illness Source: patient This is a 67 yo female with PMHx of diverticulitis requiring hospitalization with microperforation in July 2017, asthma, common variable immunodeficiency/ hypogammaglobulin anemia on monthly infusions of IV Ig (last infusion was on ), hypothyroidism, HTN, HLD, GERD, autonomic dysfunction causing syncope on Florinef, allergic rhinitis and chronic sinusitis who presents to the ER with worsening abdominal pain 5 days. The patient was recently seen here in the ER last [place] she was diagnosed with acute onset of diverticulitis and was prescribed Augmentin and sent home. Her abdominal symptoms progressed with increased nausea and vomiting over the past few days, where she initially thought it was due to the antibiotic itself. She reports chills, however denies fevers or sweats. Patient has been unable to tolerate any p.o. intake 24 hours. She also reports feeling weak and having increased lightheadedness when she goes from a sitting to standing position. Patient also notes her pain is improved when she lies on her left side. The patient notes that she was supposed to see Dr. Gross next week for referral for possible colectomy. She reports that if she required a colectomy she would be seeking a second opinion and would prefer Joselito Carcamo. Here in the ER patient's WBC is elevated at 18k with a left shift, where previously it was 11K. Lactic acid is 1.2. 0 CT of the abdomen reviewed showing acute diverticulitis involving the proximal sigmoid colon. No intraperitoneal free air or abscess. There is mild edema and pericolonic inflammation seen involving the left colon extending from the distal transverse colon to the sigmoid. The appearance is consistent with a mild superimposed colitis. Afebrile, slightly tachycardic, BP stable. Past Medical/Surgical History Medical Problems: (1) Asthma (2) Chronic asthmatic bronchitis (3) Common variable hypogammaglobulinemia (4) Common variable immunodeficiency (5) Diverticulitis (6) Gastroesophageal reflux disease (7) Hx of deep venous thrombosis (8) Hx pulmonary embolism (9) Hypercholesterolemia (10) Hyperlipidemia (11) Hypertension (12) Hypokalemia (13) Hypothyroidism (14) Perforation of intestine due to diverticulitis of gastrointestinal tract Surgical Problems: (1) Breast Biopsy 2006 (2) Hysterectomy 1989 (3) Knee Replacement Surgery (4) Right Rotator Cuff Repair 2004 (5) Vaginal Repair 1999 Family History Hypertension Lung disease Social History Smoking Status: Former Smoker Drug Use: none Marital Status: Housing status: lives with family Occupational Status: retired Immunizations History of Influenza Vaccine: Unknown History of Tetanus Vaccine?: Yes History of Pneumococcal: Unknown History of Hepatitis B Vaccine: Unknown Allergies Coded Allergies: Erythromycin (Verified Allergy, Severe, NAUSEA, DRY HEAVES, 10/20/17) Levofloxacin (Verified Allergy, Severe, Anaphylaxis, 10/20/17) Dust (Unverified Allergy, Intermediate, SETS OFF ASHMA, 10/25/17) POLLEN (Verified Allergy, Intermediate, SHORTNESS OF BREATH, 10/20/17) Aspirin (Verified Allergy, Unknown, HIVES, 10/20/17) Fluticasone (Verified Adverse Reaction, Unknown, DIZZINESS, 10/20/17) Home Medications Scheduled Amoxicillin & Pot Clavulanate (Augmentin 875-125 mg), 1 TAB PO BID Cetirizine Hcl (Zyrtec), 10 MG PO QAM Docusate Sodium (Colace), 1 CAP PO BID Fish Oil ([place]-3), 1 CAP PO BID Fludrocortisone Acetate (Florinef), 0.1 MG PO QAM Fluticasone Prop/Salmeterol (Advair Diskus 500/50 60 Dose), 1 PUFF INH BID Immune Globulin (Human) (Gammagard Liquid), 1 DOSE INJ Q28D Lactobacillus (Probiotic), 2 CAP PO QAM Lactobacillus (Probiotic), 1 CAP PO QPM Lansoprazole (Prevacid), 30 MG PO HS Levothyroxine Sodium (Synthroid), 50 MCG PO QAM Multivitamin (Multivitamin), 1 TAB PO QAM Potassium Chloride (Potassium Chloride ER), 40 MEQ PO QAM Psyllium (Metamucil Original Textur), 2 TBS PO QAM Ranitidine Hcl (Zantac), 300 MG PO HS Simvastatin (Zocor), 20 MG PO QPM Triamterene/Hctz (Dyazide 37.5MG/25MG), 0.5 TAB PO QAM Scheduled PRN Albuterol Hfa (Ventolin Hfa), 2 PUFFS INH Q4H PRN for SOB/Wheezing Albuterol Sulf (Proventil 0.083% 2.5MG/3ML), 2.5 MG INH Q6H PRN for SOB/Wheezing Triamcinolone Acetonide (Nasal (Nasacort Allergy 24Hr), 2 SPRAYS YARIEL QAM PRN for . [Zofran Odt 4MG], 4 MG PO Q6H PRN for Nausea Review of Systems Constitutional: + Chills, no fevers or sweats Eyes: No diplopia, no worsening or blurred vision ENT: normal hearing, no trouble swallowing Respiratory: No cough, sputum, dyspnea at rest or on exertion Cardiovascular: No chest pain, tightness or palpitations Abdomen: See HPI Musculoskeletal: No joint pain, calf pain, swelling Neurologic: No weakness, numbness/tingling, patient has history of issues with lightheadedness, has been following with Dr. Carbajal Psychiatric: No anxiety or depression Skin: No rash or itch Physical Exam Vital Signs Date Time Temp Pulse Resp B/P (MAP) Pulse Ox O2 Delivery O2 Flow Rate FiO2 10/25/17 15:57 99 17 126/80 97 Room Air 10/25/17 14:21 91 20 132/85 97 Room Air 10/25/17 13:29 97 10/25/17 12:11 37.5 112 16 151/90 95 Room Air General: awake, alert, no apparent distress, lying on her left side, obese Head: Normocephalic, atraumatic ENT: PERRL, EOMI, no pharyngeal exudate, mucous membranes moist Chest: +Mediport accessed in left chest wall Clear to auscultation, on room air , no adventitious breath sounds Cardiac: Slightly tachycardic, no murmur, no JVD, normal peripheral pulses, good capillary refill Abdominal: Hypoactive bowel sounds throughout, positive tenderness in the right lower quadrant, and left lower quadrant, soft, no rebound, guarding or tenderness Extremities: Normal inspection, no peripheral edema or erythema, calfs nontender to palpation Psych: Normal mood and affect Neuro: AAO x 3, strength intact bilaterally and related 5/5, no motor deficits, speech is clear, no peripheral sensory deficits Diagnostics Laboratory Results Results Past 24 Hours Test 10/25/17 13:06 10/25/17 13:07 10/25/17 13:30 Range/Units White Blood Count 18.05 4.8-10.8 K/uL Red Blood Count 4.59 4.2-5.4 M/uL Hemoglobin 12.3 12.0-16.0 g/dL Hematocrit 37.1 37-47 % Mean Corpuscular Volume 80.8 80-100 fL Mean Corpuscular Hemoglobin 26.8 25-34 pg Mean Corpuscular Hemoglobin Concent 33.2 32-36 g/dl Platelet Count 295 130-400 K/uL Mean Platelet Volume 10.6 7.4-10.4 fL Neutrophils (%) (Auto) 87.0 % Lymphocytes (%) (Auto) 6.0 % Monocytes (%) (Auto) 6.1 % Eosinophils (%) (Auto) 0.4 % Basophils (%) (Auto) 0.2 % Neutrophils # (Auto) 15.69 1.4-6.5 K/uL Lymphocytes # (Auto) 1.08 1.2-3.4 K/uL Monocytes # (Auto) 1.11 0.11-0.59 K/uL Eosinophils # (Auto) 0.08 0-0.5 K/uL Basophils # (Auto) 0.03 0-0.2 K/uL RDW Standard Deviation 52.3 36.4-46.3 fL RDW Coefficient of Variation 17.8 11.5-14.5 % Immature Granulocyte % (Auto) 0.3 % Immature Granulocyte # (Auto) 0.06 0.00-0.02 K/uL Sodium Level 133 136-145 mmol/L Potassium Level 3.4 3.5-5.1 mmol/L Chloride Level 102 98-107 mmol/L Carbon Dioxide Level 25 21-32 mmol/L Anion Gap 6.0 3-11 mmol/L Blood Urea Nitrogen 9 7-18 mg/dl Creatinine 0.97 0.60-1.20 mg/dl Est Creatinine Clear Calc Drug Dose 58.8 ml/min Estimated GFR () 69.1 Estimated GFR (Non- 59.6 BUN/Creatinine Ratio 9.3 10-20 Random Glucose 118 70-99 mg/dl Lactic Acid Level 1.2 0.4-2.0 mmol/L Calcium Level 10.6 8.5-10.1 mg/dl Total Bilirubin 0.6 0.2-1 mg/dl Direct Bilirubin 0.1 0-0.2 mg/dl Aspartate Amino Transf (AST/SGOT) 20 15-37 U/L Alanine Aminotransferase (ALT/SGPT) 22 12-78 U/L Alkaline Phosphatase 140 45-117 U/L Total Protein 7.6 6.4-8.2 gm/dl Albumin 2.8 3.4-5.0 gm/dl Lipase 75 73-393 U/L Urine Color DK YELLOW Urine Appearance CLOUDY CLEAR Urine pH 6.0 4.5-7.5 Urine Specific [place] 1.019 1.000-1.030 Urine Protein 1+ NEG Urine Glucose (UA) NEG NEG Urine Ketones NEG NEG Urine Occult Blood NEG NEG Urine Nitrite NEG NEG Urine Bilirubin NEG NEG Urine Urobilinogen NEG NEG Urine Leukocyte Esterase TRACE NEG Urine WBC (Auto) 1-5 0-5 /hpf Urine RBC (Auto) 0-4 0-4 /hpf Urine Hyaline Casts (Auto) 1-5 0-5 /lpf Urine Epithelial Cells (Auto) >30 0-5 /lpf Urine Bacteria (Auto) NEG NEG Urine Crystals CALCIUM OXALATE NONE PRSENT Microbiology Results 10/25/17 Blood Culture, Received Pending 10/25/17 Blood Culture, Received Pending Diagnostic Radiology CT SCAN OF THE ABDOMEN AND PELVIS WITH IV CONTRAST CLINICAL HISTORY: Left lower quadrant abdominal pain. COMPARISON STUDY: Abdominal CT dated 10/20/2017. TECHNIQUE: Following the IV administration of 94 cc of Optiray 320, CT scan of the abdomen and pelvis is performed from the lung bases to the proximal femora. Images are reviewed in the axial, sagittal, and coronal planes. IV contrast was administered without complication. A dose lowering technique was utilized adhering to the principles of ALARA. CT DOSE: 856.48 mGycm FINDINGS: Lung bases: The heart is normal in size and without pericardial effusion. The lung bases are clear noting bibasilar atelectasis. There is a small hiatal hernia. Liver: The contrast-enhanced liver is top normal in size measuring 17.4 cm in length. The liver demonstrates diffusely diminished attenuation consistent with hepatic steatosis. There is no intrahepatic biliary ductal dilatation. The hepatic veins and portal veins are patent. Gallbladder: Unremarkable. Spleen: Normal in size and attenuation. Pancreas: Moderately atrophic and grossly unremarkable. Adrenal glands: Unremarkable. Kidneys: The contrast enhanced kidneys are atrophic and without hydronephrosis. The kidneys enhance symmetrically. Numerous bilateral renal cysts measure up to 3.8 cm. Additional subcentimeter cortical hypodensities also likely represent cysts but are too small for definitive characterization. Abdominal vasculature: The abdominal aorta is normal in course and caliber. Bowel: There is moderate to advanced diverticulosis of the sigmoid colon. Wall thickening with pericolic inflammation and fluid is again seen involving the proximal sigmoid colon consistent with acute diverticulitis. No organized fluid collection is seen suggest abscess. There is mild wall thickening with pericolonic infiltration seen involving the left colon extending from the distal transverse colon to the sigmoid colon suggesting superimposed colitis. No bowel obstruction is seen. The appendix is well-visualized and normal. Peritoneum: There is no intraperitoneal free air or abdominal ascites. There is a small fat-containing umbilical hernia. Lymphadenopathy: None. Pelvic viscera: The bladder is normal as visualized. The uterus is surgically absent. No adnexal lesion is seen. Skeletal structures: The skeletal structures are osteopenic. There is moderate lumbosacral spondylosis. No lytic or blastic lesions are seen. IMPRESSION: 1. Findings of acute diverticulitis involving the proximal sigmoid colon are similar appearance to study dated 10/20/2017. No intraperitoneal free air is seen and there is no evidence of abscess. 2. There is mild edema and pericolonic inflammation seen involving the left colon extending from the distal transverse colon to the sigmoid. The appearance is consistent with a mild superimposed colitis. Clinical correlation will be required. 3. Hepatic steatosis. 4. Additional findings as above. Electronically signed by: Taz Talavera M.D. 10/25/2017 2:51 PM Dictated Date/Time: 10/25/2017 2:43 PM The status of this report is Signed. Impression Assessment and Plan This is a 67 yo female with PMHx of diverticulitis requiring hospitalization with microperforation in July 2017, asthma, common variable immunodeficiency/ hypogammaglobulinemia on monthly infusions of IV Ig (last infusion was on ), hypothyroidism, HTN, HLD, GERD, autonomic dysfunction causing syncope on Florinef, allergic rhinitis and chronic sinusitis who presents to the ER with worsening abdominal pain 5 days Acute diverticulitis/colitis hx diverticulitis in July 2017 with micro perforation -Admit to [facility] -CT reviewed and does not show microperforation or abscess at this time, likely can resolve diverticulitis/colitis with IV antibiotics and bowel rest at this time -Patient received a dose of Zosyn and IV Flagyl in the ER, will continue with Cipro and Flagyl IV at this time -Leukocytosis 11 K increased to 18 K over the past 5 days. Also now with a left shift -Currently afebrile, slightly tachycardic, BP stable -Start on NSS at 100 mL/hr, Zofran, n.p.o. except sips and chips -GI consultation-Dr. Gross due to diverticulitis -patient prefers second opinion from surgeon at [facility] if GI team feels this is necessary. Common variable immunodeficiency/ hypogammaglobulinemia - has received IVIG 30 gms q. 28 days since August [address] Harrington (last infusion was on 10/17/17) Autonomic dysfunction causing syncope - on Florinef 0.1 mg daily, follows with Dr. Carbajal HTN - Hold Dyazide at this time HLD -Continue statin therapy Hypothyroidism -Continue levothyroxine DVT ppx: Teds, SCDs, ambulatory CODE STATUS: Full Disposition: Patient from home, lives with I personally interviewed and examined the patient. I agree with history of present illness and physical exam mentioned above, I also performed my own history taking and examination. Past medical history and review of system has been obtained by myself I reviewed all pertinent labs and studies Reviewed current medications I discussed and formulated of the assessment and plan mentioned above. Please refer to the Summary mentioned below. 67-year-old female with past medical history of diverticulitis with microperforation and common variable immune deficiency on monthly IVIG infusion presented to the hospital 2 days ago with early diverticulitis abdominal pain, was discharged on Augmentin. Unfortunately she got worse came back with worsening white blood cell count from 11 total count went to 18, also had worsening abdominal pain imaging showed worsening diverticulitis and possible early colitis. Patient will be admitted for IV antibiotics, Flagyl and ceftriaxone IV as patient has allergy to fluoroquinolones. Patient will require colonoscopy as an outpatient after resolution. If patient developed diarrhea she could be developing C. difficile secondary to Augmentin. General Appearance: not in acute distress Eyes: normal Sclerae, extraocular muscle intact ENT: hearing grossly normal Neck: supple Respiratory/Chest: normal air entry bilateral ,no respiratory distress, no accessory muscle use Cardiovascular: regular rate, rhythm, no murmur Abdomen: Moderate abdominal tenderness but generally soft, no masses, no rebound Extremities: no edema musculoskeletal: no significant swelling or inflammation in any joint Neurologic/Psychiatric: Awake alert oriented times place and person moves all extremities sensation intact cranial nerves II-12 appear to be intact Skin: normal color, warm/dry, no rash Augie Mccormack MD, [facility] Resuscitation Status VTE Prophylaxis Will order VTE Prophylaxis: Yes
[2017-10-25] MEDS ORDERED: ACETAMINOPHEN 325 MG TAB PO PRN (17:30)
[2017-10-25 18:03] VITALS: O2SAT 96; BMI 33.3
--- NOTE | 2017-10-25 18:28 | EMERGENCY ROOM VISIT NOTE ---
History Report prepared by Binta: David Ibrahim Under the Supervision of: Dr. Ronen Truong M.D. First contact with patient: 12:18 Chief Complaint: ABDOMINAL PAIN Stated Complaint: EVAL Nursing Triage Summary: pt here via als from home with abd pains. pt was here on monday and dx with diverticulitis. pt states taking augmentin with no improvement. pt states abx is very hard on her system. pt states she needs iv abx to help her. pt saw dr harrington yesterday, she has an appt with gi next week History of Present Illness The patient is a 67 year old female who presents to the Emergency Room by EMS with complaints of constant diffuse abdominal pain beginning last night. She describes her pain as "cramping". The patient also complains of abdominal bloating, nausea, vomiting and a cough. She notes that she is passing a lot of gas. She had two bouts of diarrhea today. The patient was seen in the ED five days ago and was diagnosed with diverticulitis. She was discharged on Augmentin. She states that her symptoms have not improved. The patient is scheduled to see GI next week. She notes that antibiotics often do not work well for her, and make her feel sick. She denies eating anything abnormal. Source of History: patient Onset: Last night Position: abdomen (diffuse) Quality: cramping Timing: intermittent Associated Symptoms: + cough, + nausea, + vomiting, + diarrhea Note: Positive: abdominal distension. Review of Systems See HPI for pertinent positives and negatives. A total of ten systems were reviewed and were otherwise negative. Past Medical & Surgical Medical Problems: (1) Asthma (2) Chronic asthmatic bronchitis (3) Common variable hypogammaglobulinemia (4) Common variable immunodeficiency (5) Diverticulitis (6) Gastroesophageal reflux disease (7) Hx of deep venous thrombosis (8) Hx pulmonary embolism (9) Hypercholesterolemia (10) Hyperlipidemia (11) Hypertension (12) Hypokalemia (13) Hypothyroidism (14) Perforation of intestine due to diverticulitis of gastrointestinal tract (15) Pneumonia (16) Respiratory failure with hypoxia (17) Rhinitis (18) Seasonal Allergies Surgical Problems: (1) Breast Biopsy 2006 (2) Hysterectomy 1989 (3) Knee Replacement Surgery (4) Right Rotator Cuff Repair 2004 (5) Vaginal Repair 1999 Family History Hypertension Lung disease Social History Smoking Status: Former Smoker Alcohol Use: occasionally Drug Use: none Marital Status: Housing Status: lives with family Occupation Status: retired Current/Historical Medications Scheduled Amoxicillin & Pot Clavulanate (Augmentin 875-125 mg), 1 TAB PO BID Cetirizine Hcl (Zyrtec), 10 MG PO QAM Docusate Sodium (Colace), 1 CAP PO BID Fish Oil ([place]-3), 1 CAP PO BID Fludrocortisone Acetate (Florinef), 0.1 MG PO QAM Fluticasone Prop/Salmeterol (Advair Diskus 500/50 60 Dose), 1 PUFF INH BID Immune Globulin (Human) (Gammagard Liquid), 1 DOSE INJ Q28D Lactobacillus (Probiotic), 2 CAP PO QAM Lactobacillus (Probiotic), 1 CAP PO QPM Lansoprazole (Prevacid), 30 MG PO HS Levothyroxine Sodium (Synthroid), 50 MCG PO QAM Multivitamin (Multivitamin), 1 TAB PO QAM Potassium Chloride (Potassium Chloride ER), 40 MEQ PO QAM Psyllium (Metamucil Original Textur), 2 TBS PO QAM Ranitidine Hcl (Zantac), 300 MG PO HS Simvastatin (Zocor), 20 MG PO QPM Triamterene/Hctz (Dyazide 37.5MG/25MG), 0.5 TAB PO QAM Scheduled PRN Albuterol Hfa (Ventolin Hfa), 2 PUFFS INH Q4H PRN for SOB/Wheezing Albuterol Sulf (Proventil 0.083% 2.5MG/3ML), 2.5 MG INH Q6H PRN for SOB/Wheezing Triamcinolone Acetonide (Nasal (Nasacort Allergy 24Hr), 2 SPRAYS YARIEL QAM PRN for . [Zofran Odt 4MG], 4 MG PO Q6H PRN for Nausea Allergies Coded Allergies: Erythromycin (Verified Allergy, Severe, NAUSEA, DRY HEAVES, 10/20/17) Levofloxacin (Verified Allergy, Severe, Anaphylaxis, 10/20/17) Dust (Unverified Allergy, Intermediate, SETS OFF ASHMA, 10/25/17) POLLEN (Verified Allergy, Intermediate, SHORTNESS OF BREATH, 10/20/17) Aspirin (Verified Allergy, Unknown, HIVES, 10/20/17) Fluticasone (Verified Adverse Reaction, Unknown, DIZZINESS, 10/20/17) Physical Exam Vital Signs Date Time Temp Pulse Resp B/P (MAP) Pulse Ox O2 Delivery O2 Flow Rate FiO2 10/25/17 17:42 79 14 105/62 96 Room Air 10/25/17 17:32 81 10/25/17 15:57 99 17 126/80 97 Room Air 10/25/17 14:21 91 20 132/85 97 Room Air 10/25/17 13:29 97 10/25/17 12:11 37.5 112 16 151/90 95 Room Air Physical Exam GENERAL: Awake, alert, fatigued, uncomfortable-appearing, in no distress HENT: Normocephalic, atraumatic. Oropharynx unremarkable other than dry mucous membranes. EYES: Normal conjunctiva. Sclera non-icteric. NECK: Supple. No nuchal rigidity. FROM. No JVD. RESPIRATORY: Clear to auscultation. CARDIAC: Regular rate, normal rhythm. Extremities warm and well perfused. Pulses equal. ABDOMEN: Soft, non-distended. Generalized abdominal tenderness. No peritoneal signs. No rebound or guarding. No masses. RECTAL: Deferred. MUSCULOSKELETAL: Chest examination reveals no tenderness. The back is symmetrical on inspection without obvious abnormality. There is no CVA tenderness to palpation. No joint edema. LOWER EXTREMITIES: Calves are equal size bilaterally and non-tender. No edema. No discoloration. NEURO: Normal sensorium. No sensory or motor deficits noted. SKIN: No rash or jaundice noted. Medical Decision & Procedures ER Provider Diagnostic Interpretation: Radiology results as stated below per my review and radiologist interpretation: CT SCAN OF THE ABDOMEN AND PELVIS WITH IV CONTRAST FINDINGS: Lung bases: The heart is normal in size and without pericardial effusion. The lung bases are clear noting bibasilar atelectasis. There is a small hiatal hernia. Liver: The contrast-enhanced liver is top normal in size measuring 17.4 cm in length. The liver demonstrates diffusely diminished attenuation consistent with hepatic steatosis. There is no intrahepatic biliary ductal dilatation. The hepatic veins and portal veins are patent. Gallbladder: Unremarkable. Spleen: Normal in size and attenuation. Pancreas: Moderately atrophic and grossly unremarkable. Adrenal glands: Unremarkable. Kidneys: The contrast enhanced kidneys are atrophic and without hydronephrosis. The kidneys enhance symmetrically. Numerous bilateral renal cysts measure up to 3.8 cm. Additional subcentimeter cortical hypodensities also likely represent cysts but are too small for definitive characterization. Abdominal vasculature: The abdominal aorta is normal in course and caliber. Bowel: There is moderate to advanced diverticulosis of the sigmoid colon. Wall thickening with pericolic inflammation and fluid is again seen involving the proximal sigmoid colon consistent with acute diverticulitis. No organized fluid collection is seen suggest abscess. There is mild wall thickening with pericolonic infiltration seen involving the left colon extending from the distal transverse colon to the sigmoid colon suggesting superimposed colitis. No bowel obstruction is seen. The appendix is well-visualized and normal. Peritoneum: There is no intraperitoneal free air or abdominal ascites. There is a small fat-containing umbilical hernia. Lymphadenopathy: None. Pelvic viscera: The bladder is normal as visualized. The uterus is surgically absent. No adnexal lesion is seen. Skeletal structures: The skeletal structures are osteopenic. There is moderate lumbosacral spondylosis. No lytic or blastic lesions are seen. IMPRESSION: 1. Findings of acute diverticulitis involving the proximal sigmoid colon are similar appearance to study dated 10/20/2017. No intraperitoneal free air is seen and there is no evidence of abscess. 2. There is mild edema and pericolonic inflammation seen involving the left colon extending from the distal transverse colon to the sigmoid. The appearance is consistent with a mild superimposed colitis. Clinical correlation will be required. 3. Hepatic steatosis. 4. Additional findings as above. Electronically signed by: Taz Talavera M.D. 10/25/2017 2:51 PM Laboratory Results 10/25/17 13:06 Red Blood Count 4.59, Mean Corpuscular Volume 80.8, Mean Corpuscular Hemoglobin 26.8, Mean Corpuscular Hemoglobin Concent 33.2, Mean Platelet Volume 10.6, Neutrophils (%) (Auto) 87.0, Lymphocytes (%) (Auto) 6.0, Monocytes (%) (Auto) 6.1, Eosinophils (%) (Auto) 0.4, Basophils (%) (Auto) 0.2, Neutrophils # (Auto) 15.69, Lymphocytes # (Auto) 1.08, Monocytes # (Auto) 1.11, Eosinophils # (Auto) 0.08, Basophils # (Auto) 0.03 10/25/17 13:07 Test 10/25/17 13:06 10/25/17 13:07 10/25/17 13:30 White Blood Count 18.05 K/uL (4.8-10.8) Red Blood Count 4.59 M/uL (4.2-5.4) Hemoglobin 12.3 g/dL (12.0-16.0) Hematocrit 37.1 % (37-47) Mean Corpuscular Volume 80.8 fL (80-100) Mean Corpuscular Hemoglobin 26.8 pg (25-34) Mean Corpuscular Hemoglobin Concent 33.2 g/dl (32-36) Platelet Count 295 K/uL (130-400) Mean Platelet Volume 10.6 fL (7.4-10.4) Neutrophils (%) (Auto) 87.0 % Lymphocytes (%) (Auto) 6.0 % Monocytes (%) (Auto) 6.1 % Eosinophils (%) (Auto) 0.4 % Basophils (%) (Auto) 0.2 % Neutrophils # (Auto) 15.69 K/uL (1.4-6.5) Lymphocytes # (Auto) 1.08 K/uL (1.2-3.4) Monocytes # (Auto) 1.11 K/uL (0.11-0.59) Eosinophils # (Auto) 0.08 K/uL (0-0.5) Basophils # (Auto) 0.03 K/uL (0-0.2) RDW Standard Deviation 52.3 fL (36.4-46.3) RDW Coefficient of Variation 17.8 % (11.5-14.5) Immature Granulocyte % (Auto) 0.3 % Immature Granulocyte # (Auto) 0.06 K/uL (0.00-0.02) Anion Gap 6.0 mmol/L (3-11) Est Creatinine Clear Calc Drug Dose 58.8 ml/min Estimated GFR () 69.1 Estimated GFR (Non- 59.6 BUN/Creatinine Ratio 9.3 (10-20) Lactic Acid Level 1.2 mmol/L (0.4-2.0) Calcium Level 10.6 mg/dl (8.5-10.1) Total Bilirubin 0.6 mg/dl (0.2-1) Direct Bilirubin 0.1 mg/dl (0-0.2) Aspartate Amino Transf (AST/SGOT) 20 U/L (15-37) Alanine Aminotransferase (ALT/SGPT) 22 U/L (12-78) Alkaline Phosphatase 140 U/L (45-117) Total Protein 7.6 gm/dl (6.4-8.2) Albumin 2.8 gm/dl (3.4-5.0) Lipase 75 U/L (73-393) Urine Color DK YELLOW Urine Appearance CLOUDY (CLEAR) Urine pH 6.0 (4.5-7.5) Urine Specific [place] 1.019 (1.000-1.030) Urine Protein 1+ (NEG) Urine Glucose (UA) NEG (NEG) Urine Ketones NEG (NEG) Urine Occult Blood NEG (NEG) Urine Nitrite NEG (NEG) Urine Bilirubin NEG (NEG) Urine Urobilinogen NEG (NEG) Urine Leukocyte Esterase TRACE (NEG) Urine WBC (Auto) 1-5 /hpf (0-5) Urine RBC (Auto) 0-4 /hpf (0-4) Urine Hyaline Casts (Auto) 1-5 /lpf (0-5) Urine Epithelial Cells (Auto) >30 /lpf (0-5) Urine Bacteria (Auto) NEG (NEG) Urine Crystals CALCIUM OXALATE (NONE Laboratory results reviewed by me Medications Administered Medications (Trade) Dose Ordered Sig/Ross Route Start Time Stop Time Status Last Admin Dose Admin Sodium Chloride 1,000 ml @ 999 mls/hr Q1H1M STAT IV 10/25/17 12:32 10/25/17 13:32 DC 10/25/17 13:26 999 MLS/HR Ondansetron HCl (Zofran Inj) 4 mg NOW STAT IV 10/25/17 12:32 10/25/17 12:39 DC 10/25/17 13:26 4 MG Piperacillin Sod/ Tazobactam Sod (Zosyn Iv) 4.5 gm NOW STAT IV 10/25/17 15:38 10/25/17 15:40 DC 10/25/17 15:56 4.5 GM Fentanyl Citrate (Fentanyl Inj) 50 mcg NOW STAT IV 10/25/17 16:49 10/25/17 17:13 DC 10/25/17 17:00 50 MCG Metronidazole (Flagyl / Nss) 500 mg NOW STAT IV 10/25/17 16:49 10/25/17 17:13 DC 10/25/17 17:00 500 MG Ondansetron HCl (Zofran Inj) 4 mg Q6H PRN IV 10/25/17 17:30 11/24/17 17:29 10/25/17 22:49 4 MG Sodium Chloride 1,000 ml @ 100 mls/hr Q10H IV 10/25/17 17:23 10/26/17 05:22 10/25/17 20:05 100 MLS/HR ED Course 1231: The patient was evaluated in room C2B. A complete history and physical exam was performed. 1630: Upon reexamination, the patient was resting comfortably. I discussed the test results and treatment plan with her. The patient will be evaluated for further management. Medical Decision I reviewed the patient's past medical history, medications, and the nursing notes as described above. Differential diagnosis: Etiologies such as appendicitis, diverticulitis, PUD, biliary pathology, UTI, pancreatitis, obstruction, mesenteric ischemia, aortic pathology, infections, inflammatory bowel disease, renal colic, as well as others were entertained. The patient is a 67-year-old woman with a past medical history of diverticulitis complicated by perforation in July 2017, which was managed medically now presents emergency department with worsening abdominal pain in the setting of being seen in the ED on Monday and diagnosed with diverticulitis and treated with single dose of Unasyn and outpatient Augmentin and probiotics per hpi. On arrival the patient is fatigued and uncomfortable but no acute distress, afebrile stable vital signs. WBC is 18 increased from 11 previously. Lactate within normal limits. CT of the abdomen pelvis shows stable sigmoid diverticulitis however does show evidence of superimposed colitis of the transverse colon. Given the patient's history of complicated diverticulitis now with worsening symptoms will admit. Will treat with Zosyn for now. C. difficile ordered an additional dose of Flagyl given. Case was discussed with NETTIE Royal hospitalist, who will admit the patient for further management. Medication Reconcilliation Current Medication List: was personally reviewed by me Blood Pressure Screening Patient's blood pressure: Normal blood pressure Blood pressure disposition: Did not require urgent referral Consults Time Called: 1630 Consulting Physician: Dr. Malik SHEFFIELD Hospitalist Returned Call: 1634 I discussed the patient with Dr. Malik SHEFFIELD will evaluate the patient for further treatment. Impression Primary Impression: Diverticulitis Scribe Attestation The scribe's documentation has been prepared under my direction and personally reviewed by me in its entirety. I confirm that the note above accurately reflects all work, treatment, procedures, and medical decision making performed by me. Departure Information Dispostion Being Evaluated By Hospitalist Referrals Joselito Harrington M.D. (PCP) Patient Instructions [facility]
[2017-10-25 19:38] VITALS: BP 110/73; PULSE 85; TEMP 36.9; O2SAT 93
[2017-10-25 19:52] VITALS: O2SAT 93
[2017-10-25] MEDS: SODIUM CHLORIDE 0.9% 1000ML 1,000 ML IV SCH (20:05)
[2017-10-25] MEDS: CEFTRIAXONE SOD INJ 2000 MG in DEXTROSE 5% 50ML IV SCH (20:05)
[2017-10-25] MEDS ORDERED: CIPROFLOXACIN / D5W 400 MG in PREMIXED IN D5W 200 ML IV SCH (21:00)
[2017-10-25] MEDS: FLUTICASONE/SALMETEROL (ADVAIR) 500/50 INH 14 PUFF INH SCH (21:21)
[2017-10-25] MEDS: LACTOBACILLUS ACIDOPHILUS (FLORANEX) TAB PO SCH (21:22)
[2017-10-25] MEDS: RANITIDINE HCL 150 MG TAB PO SCH (21:23)
[2017-10-25] MEDS: SIMVASTATIN 20 MG TAB PO SCH (21:23)
[2017-10-25] MEDS: PANTOprazole SOD 40 MG TAB PO SCH (21:23)
[2017-10-25] MEDS: ONDANSETRON INJ 2 MG/ML 2 ML VIAL IV PRN (22:49)
[2017-10-25] MEDS: MoRPHine SULFATE 4 MG/ML 1 ML CARP\\VIAL IV PRN (22:49)
[2017-10-25 23:11] VITALS: BP 127/70; PULSE 78; TEMP 36.7; O2SAT 93
[2017-10-25] MEDS: METRONIDAZOLE / NSS 500 MG in PREMIXED NSS 100 ML IV SCH (23:28)
[2017-10-26] VITALS (8 sets, daily range): BP systolic 113–129; BP diastolic 71–79; PULSE 71–82; TEMP 36.6–36.8; O2SAT 91–96; Ht 162.6 cm; Wt 88.0 kg
[2017-10-26] MEDS: SODIUM CHLORIDE 0.9% 1000ML 1,000 ML IV SCH (03:54)
[2017-10-26] MEDS: MoRPHine SULFATE 4 MG/ML 1 ML CARP\\VIAL IV PRN ×2 (03:54→08:01)
[2017-10-26] MEDS: LEVOTHYROXINE 50 MCG TAB PO SCH (05:59)
[2017-10-26] MEDS: LACTOBACILLUS ACIDOPHILUS (FLORANEX) TAB PO SCH ×3 (07:55→17:04)
[2017-10-26] MEDS: MULTIVITAMIN TAB PO SCH (07:55)
[2017-10-26] MEDS: FLUTICASONE/SALMETEROL (ADVAIR) 500/50 INH 14 PUFF INH SCH ×2 (07:56→20:09)
[2017-10-26] MEDS: POTASSIUM CHLORIDE 20 MEQ TABCR PO SCH (07:56)
[2017-10-26] MEDS: METRONIDAZOLE / NSS 500 MG in PREMIXED NSS 100 ML IV SCH ×2 (07:56→15:31)
[2017-10-26] MEDS: FLUDROCORTISONE ACETATE 0.1 MG TAB PO SCH (07:56)
[2017-10-26] MEDS: ONDANSETRON INJ 2 MG/ML 2 ML VIAL IV PRN ×2 (08:17→23:07)
[2017-10-26 08:20] LABS: BASO % 0.4 %; BASO ABS # 0.03 K/uL (0-0.2); EOS % 2.1 %; EOS ABS # 0.16 K/uL (0-0.5); HEMATOCRIT 33.7 % (37-47); HEMOGLOBIN 10.7 g/dL (12.0-16.0); IG# 0.04 K/uL (0.00-0.02); LYMPH % 25.3 %; LYMPH ABS # 1.92 K/uL (1.2-3.4); MEAN CELL VOLUME 82.4 fL (80-100); MEAN CORPUSCULAR HEMOGLOBIN 26.2 pg (25-34); MEAN CORPUSCULAR HGB CONC 31.8 g/dl (32-36); MEAN PLATELET VOLUME 10.6 fL (7.4-10.4); MONO ABS # 0.68 K/uL (0.11-0.59); NEUT % 62.7 %; NEUT ABS # 4.76 K/uL (1.4-6.5); PLATELET COUNT 254 K/uL (130-400); WHITE BLOOD COUNT 7.59 K/uL (4.8-10.8)
[2017-10-26 08:41] LABS: CALCIUM 9.4 mg/dl (8.5-10.1); CREATININE 0.93 mg/dl (0.60-1.20); POTASSIUM 3.3 mmol/L (3.5-5.1)
[2017-10-26] MEDS ORDERED: POTASSIUM CHLR 10 MEQ / WTR 100 ML IV ONE (10:00)
[2017-10-26] MEDS: NSS + 20MEQ KCL 1000ML 1,000 ML IV SCH ×2 (10:16→20:10)
--- NOTE | 2017-10-26 10:23 | Gastrointestinal Consultation ---
Gastrointestinal Consultation Date of Consultation: Oct 26, 2017 Attending Physician: DR Manolo Billings Consulting Physician: DR Jose M Hernandez Reason for Consultation: diverticulitis History of Present Illness Patient is a 67 year old female with CC of abd pain, n/v. HPI Reviewed [facility] EMR and this EMR. Pt present for plan. Pt with perforated diverticulitis 07/2017 and was hospitliazed and did not require surgery. This was first bout of diverticulitis. The patient saw DR Go colorectal surgeon from [facility] 08/2017 and at that time since first bout of diverticulitis did not recommend sigmoid resection. She states her usual constipation improved and she moved bowels easier but would notice some LLQ pain when she bumped her abdomen. She present to ER with abd pain, n/v , 2 small loose stools and CT showing sigmoid diverticulitis. She was sent home on augmentin but continue to have up to 5/10 abd pain, n/v and not tolerating po intake. She came to ER again with rising WBC and CT showing sigmoid diverticulitis as well as TC to sigmoid colon wall thickening. This am WBC improved and she states pain level 2 and she feels like she can eat something. No bloody nor black stools and no stools for several days. Past Medical/Surgical History Medical Problems: (1) Ankle pain Status: Acute (2) Asthma exacerbation Status: Acute (3) Closed head injury Status: Acute (4) Diverticulitis of colon with perforation Status: Acute (5) Diverticulitis of sigmoid colon Status: Acute (6) Forearm laceration Status: Acute (7) Fracture of fifth metatarsal bone of left foot Status: Acute (8) Hypoxia Status: Acute (9) Left lower lobe pneumonia Status: Acute (10) Pneumonia Status: Chronic (11) Rhinitis Status: Chronic (12) Syncope Status: Acute (13) Syncope Status: Acute (14) Syncope Status: Acute Family History Hypertension Lung disease Social History Smoking Status: Former Smoker Alcohol Use: occasionally Drug Use: none Marital Status: Housing Status: lives with family Occupation Status: retired Allergies Coded Allergies: Erythromycin (Verified Allergy, Severe, NAUSEA, DRY HEAVES, 10/20/17) Levofloxacin (Verified Allergy, Severe, Anaphylaxis, 10/20/17) Dust (Unverified Allergy, Intermediate, SETS OFF ASHMA, 10/25/17) POLLEN (Verified Allergy, Intermediate, SHORTNESS OF BREATH, 10/20/17) Aspirin (Verified Allergy, Unknown, HIVES, 10/20/17) Fluticasone (Verified Adverse Reaction, Unknown, DIZZINESS, 10/20/17) Current Medications Home Meds and Scripts Medications Dose Route/Sig Max Daily Dose Days Date Category Dose Instructions [Zofran Odt 4MG] 4 Mg PO Q6H PRN 10/25/17 Reported Colace (Docusate Sodium) 100 Mg Cap 1 Cap PO BID 10/25/17 Reported Augmentin 875-125 mg (Amoxicillin & Pot Clavulanate) 1 Tab Tab 1 Tab PO BID 10/25/17 Reported Zantac (Ranitidine HCl) 300 Mg Tab 300 Mg PO HS 10/20/17 Reported Dyazide 37.5MG/25MG (Triamterene/HCTZ) Cap 0.5 Tab PO QAM 10/20/17 Reported [place]-3 (Fish Oil) 1 Ea Cap 1 Cap PO BID 10/20/17 Reported Probiotic (Lactobacillus) 1 Cap Cap 1 Cap PO QPM 10/20/17 Reported Probiotic (Lactobacillus) 1 Cap Cap 2 Cap PO QAM 10/20/17 Reported Metamucil Original Textur (Psyllium) 48.57 % Pow 2 Tbs PO QAM 10/20/17 Reported Potassium Chloride ER (Potassium Chloride) 20 Meq Tabcr 40 Meq PO QAM 10/20/17 Reported Multivitamin (Multivitamins) Tab 1 Tab PO QAM 07/19/17 Reported Gammagard Liquid (Immune Globulin (Human)) Unknown Strength Inj 1 Dose INJ Q28D 07/11/17 Reported INFUSION EVERY 28 DAYS Florinef (Fludrocortisone Acetate) 0.1 Mg Tab 0.1 Mg PO QAM 07/04/17 Reported Synthroid (Levothyroxine Sodium) 50 Mcg Tab 50 Mcg PO QAM 11/01/16 Reported Prevacid (Lansoprazole) 30 Mg Capcr 30 Mg PO HS 11/01/16 Reported Nasacort Allergy 24Hr (Triamcinolone Acetonide (Nasal) 55 Mcg/Act Spr 2 Sprays YARIEL QAM PRN 08/17/16 Reported Proventil 0.083% 2.5MG/3ML (Albuterol Sulf) 2.5 Mg/3 Ml Nebu 2.5 Mg INH Q6H PRN 08/17/16 Reported Ventolin Hfa (Albuterol) 200 Puffs/34710 Mcg Aers 2 Puffs INH Q4H PRN 08/17/16 Reported Zyrtec (Cetirizine Hcl) 10 Mg Tab 10 Mg PO QAM 10/12/15 Reported Advair Diskus 500/50 60 Dose (Fluticasone Prop/Salmeterol) 1 Ea Aerp 1 Puff INH BID 03/30/12 Reported Zocor (Simvastatin) 20 Mg Tab 20 Mg PO QPM 09/08/10 Reported Review of Systems see HPI, otherwise 10 ROS negative. Physical Exam Date Time Temp Pulse Resp B/P (MAP) Pulse Ox O2 Delivery O2 Flow Rate FiO2 10/26/17 08:44 71 20 124/74 (91) 91 Room Air 10/26/17 08:00 93 Room Air 10/26/17 07:09 36.8 72 17 113/71 (85) 93 Room Air 10/26/17 00:00 93 Room Air 10/25/17 23:11 36.7 78 18 127/70 (89) 93 Room Air 10/25/17 19:52 93 Room Air 10/25/17 19:38 36.9 85 18 110/73 (85) 93 Room Air 10/25/17 19:13 37.5 80 16 103/66 97 10/25/17 18:03 96 Room Air 10/25/17 17:42 79 14 105/62 96 Room Air 10/25/17 17:32 81 10/25/17 15:57 99 17 126/80 97 Room Air 10/25/17 14:21 91 20 132/85 97 Room Air 10/25/17 13:29 97 10/25/17 12:11 37.5 112 16 151/90 95 Room Air General Appearance: WD/WN, no apparent distress Eyes: normal inspection, PERRL ENT: hearing grossly normal, pharynx normal Neck: supple, trachea midline Respiratory/Chest: lungs clear, no respiratory distress Cardiovascular: no edema, no murmur Abdomen: normal bowel sounds, soft, no organomegaly, no pulsatile mass, + pertinent finding (subjective LLQ pain, no guarding nor reboun) Neurologic/Psych: stripper and printer II-XII nml as tested, normal mood/affect, oriented x 3 Skin: normal color, no jaundice Laboratory Results Last 24 Hours Test 10/25/17 13:06 10/25/17 13:07 10/25/17 13:30 10/26/17 07:35 White Blood Count 18.05 K/uL 7.59 K/uL Red Blood Count 4.59 M/uL 4.09 M/uL Hemoglobin 12.3 g/dL 10.7 g/dL Hematocrit 37.1 % 33.7 % Mean Corpuscular Volume 80.8 fL 82.4 fL Mean Corpuscular Hemoglobin 26.8 pg 26.2 pg Mean Corpuscular Hemoglobin Concent 33.2 g/dl 31.8 g/dl Platelet Count 295 K/uL 254 K/uL Mean Platelet Volume 10.6 fL 10.6 fL Neutrophils (%) (Auto) 87.0 % 62.7 % Lymphocytes (%) (Auto) 6.0 % 25.3 % Monocytes (%) (Auto) 6.1 % 9.0 % Eosinophils (%) (Auto) 0.4 % 2.1 % Basophils (%) (Auto) 0.2 % 0.4 % Neutrophils # (Auto) 15.69 K/uL 4.76 K/uL Lymphocytes # (Auto) 1.08 K/uL 1.92 K/uL Monocytes # (Auto) 1.11 K/uL 0.68 K/uL Eosinophils # (Auto) 0.08 K/uL 0.16 K/uL Basophils # (Auto) 0.03 K/uL 0.03 K/uL RDW Standard Deviation 52.3 fL 54.0 fL RDW Coefficient of Variation 17.8 % 18.0 % Immature Granulocyte % (Auto) 0.3 % 0.5 % Immature Granulocyte # (Auto) 0.06 K/uL 0.04 K/uL Sodium Level 133 mmol/L 140 mmol/L Potassium Level 3.4 mmol/L 3.3 mmol/L Chloride Level 102 mmol/L 110 mmol/L Carbon Dioxide Level 25 mmol/L 24 mmol/L Anion Gap 6.0 mmol/L 6.0 mmol/L Blood Urea Nitrogen 9 mg/dl 7 mg/dl Creatinine 0.97 mg/dl 0.93 mg/dl Est Creatinine Clear Calc Drug Dose 58.8 ml/min 61.3 ml/min Estimated GFR () 69.1 72.7 Estimated GFR (Non- 59.6 62.7 BUN/Creatinine Ratio 9.3 7.7 Random Glucose 118 mg/dl 95 mg/dl Lactic Acid Level 1.2 mmol/L Calcium Level 10.6 mg/dl 9.4 mg/dl Total Bilirubin 0.6 mg/dl Direct Bilirubin 0.1 mg/dl Aspartate Amino Transf (AST/SGOT) 20 U/L Alanine Aminotransferase (ALT/SGPT) 22 U/L Alkaline Phosphatase 140 U/L Total Protein 7.6 gm/dl Albumin 2.8 gm/dl Lipase 75 U/L Urine Color DK YELLOW Urine Appearance CLOUDY Urine pH 6.0 Urine Specific [place] 1.019 Urine Protein 1+ Urine Glucose (UA) NEG Urine Ketones NEG Urine Occult Blood NEG Urine Nitrite NEG Urine Bilirubin NEG Urine Urobilinogen NEG Urine Leukocyte Esterase TRACE Urine WBC (Auto) 1-5 /hpf Urine RBC (Auto) 0-4 /hpf Urine Hyaline Casts (Auto) 1-5 /lpf Urine Epithelial Cells (Auto) >30 /lpf Urine Bacteria (Auto) NEG Urine Crystals CALCIUM OXALATE Impression sigmoid diverticulitis---IV Abx. Recommend outpt colorectal surgery consult and she wants to get her own at [facility] rather than see DR Go again. thickening TC to sigmoid--no ongoing diarrhea to suggest infection, no bleeding to suggest ischemic but that is still in differential and will check duplex u/s fatty liver--nothing acute to do LLQ pain--from diverticulitis improved elev WBC from diverticulitis--improved. Trial clear liquids. I am going off service tomorrow 10/27/[address] Gross is on schedule to be assuming GI care then.
--- NOTE | 2017-10-26 14:00 | DIAGNOSTIC IMAGING REPORT ---
DOPPLER ULTRASOUND OF THE MESENTERIC VASCULATURE CLINICAL HISTORY: Colitis. COMPARISON STUDY: Abdominal CT dated 10/25/2017. TECHNIQUE: Real-time, grayscale, and color Doppler assessment of the portal vasculature was performed. FINDINGS: The abdominal aorta is patent with velocities measuring up to 138 cm/s. The celiac trunk is patent with normal arterial waveforms. Velocities within the celiac trunk measure up to 127 cm/s. The superior mesenteric artery is patent with normal arterial waveforms. Velocities measure up to 164 cm/s. Survey images of the liver show evidence of hepatic steatosis. IMPRESSION: Unremarkable Doppler assessment of the mesenteric vasculature. Dictated: 10/26/2017 1:43 PM Transcribed: 10/26/2017 2:00 PM [email or web address] Electronically signed by: Taz Talavera M.D. 10/26/2017 2:00 PM Dictated Date/Time: 10/26/2017 1:43 PM
--- NOTE | 2017-10-26 17:24 | Hospitalist Progress Note ---
Hospitalist Progress Note Date of Service Oct 26, 2017. (Lyric Sheth ., MARIBEL) Subjective Pt evaluation today including: conversation w/ patient, physical exam, chart review, lab review, review of inpatient medication list Voiding: no voiding problems Ms. Cruz is tolerating her clear liquid diet. She is feeling better than at admission. No n/v/d ROS Constitutional: no chills, aches, sweats or fever Respiratory: no sob,cough, sputum, or wheezing Cardiac: no chest pain, palpitations, edema, orthopnea or lightheadedness GI: see HPI : no dysuria or hesitancy Extremities: no joint pain or weakness Skin: no rash All other systems reviewed and negative (Lyric Sheth CRNP) Medications Medications Administered Medications (Trade) Dose Ordered Sig/Ross Route Start Time Stop Time Status Last Admin Dose Admin Sodium Chloride 1,000 ml @ 999 mls/hr Q1H1M STAT IV 10/25/17 12:32 10/25/17 13:32 DC 10/25/17 13:26 999 MLS/HR Ondansetron HCl (Zofran Inj) 4 mg NOW STAT IV 10/25/17 12:32 10/25/17 12:39 DC 10/25/17 13:26 4 MG Piperacillin Sod/ Tazobactam Sod (Zosyn Iv) 4.5 gm NOW STAT IV 10/25/17 15:38 10/25/17 15:40 DC 10/25/17 15:56 4.5 GM Fentanyl Citrate (Fentanyl Inj) 50 mcg NOW STAT IV 10/25/17 16:49 10/25/17 17:13 DC 10/25/17 17:00 50 MCG Metronidazole (Flagyl / Nss) 500 mg NOW STAT IV 10/25/17 16:49 10/25/17 17:13 DC 10/25/17 17:00 500 MG Ondansetron HCl (Zofran Inj) 4 mg Q6H PRN IV 10/25/17 17:30 11/24/17 17:29 10/26/17 23:07 4 MG Fludrocortisone Acetate (Florinef Tab) 0.1 mg QAM PO 10/26/17 08:00 11/25/17 08:59 10/27/17 08:21 0.1 MG Salmeterol Xinafoate/ Fluticasone (Advair Diskus 500/50 Inh) 1 puff BID INH 10/25/17 20:00 11/24/17 20:59 10/27/17 08:20 1 PUFF Levothyroxine Sodium (Synthroid Tab) 50 mcg DAILYBB PO 10/26/17 06:30 11/25/17 06:29 10/27/17 05:36 50 MCG Multivitamins (Multivitamin Tab) 1 tab QAM PO 10/26/17 08:00 11/25/17 08:59 10/27/17 08:21 1 TAB Potassium Chloride (Klor-Con Tab) 40 meq QAM PO 10/26/17 08:00 11/25/17 08:59 10/27/17 08:21 40 MEQ Ranitidine HCl (zANTac TAB) 300 mg HS PO 10/25/17 21:00 11/24/17 20:59 10/26/17 21:26 300 MG Simvastatin (Zocor Tab) 20 mg QPM PO 10/25/17 21:00 11/24/17 20:59 10/26/17 21:26 20 MG Pantoprazole Sodium (Protonix Tab) 40 mg HS PO 10/25/17 22:00 11/24/17 21:59 10/26/17 21:25 40 MG Metronidazole 500 mg/Prmx 100 ml @ 100 mls/hr Q8H IV 10/26/17 00:00 11/05/17 00:00 10/27/17 08:22 100 MLS/HR Lactobacillus Acidophilus (Floranex Tab) 4 tab TIDM PO 10/25/17 20:00 11/24/17 19:59 10/27/17 12:21 4 TAB Sodium Chloride 1,000 ml @ 100 mls/hr Q10H IV 10/25/17 17:23 10/26/17 05:22 DC 10/26/17 03:54 100 MLS/HR Ceftriaxone Sodium 2000 mg/ Dextrose 70 ml @ 140 mls/hr DAILY@2000 IV 10/25/17 20:00 11/04/17 19:59 10/26/17 20:09 140 MLS/HR Morphine Sulfate (MoRPHine SULFATE INJ) 4 mg Q4H PRN IV 10/25/17 22:45 11/08/17 22:44 10/26/17 08:01 4 MG Potassium Chloride/Sodium Chloride 1,000 ml @ 100 mls/hr Q10H IV 10/26/17 10:00 11/25/17 09:59 10/27/17 05:34 100 MLS/HR Potassium Chloride 100 ml @ 100 mls/hr 1000 ONCE IV 10/26/17 10:00 10/26/17 10:59 DC 10/26/17 10:16 100 MLS/HR Simethicone (Mylicon Chew Tab) 80 mg Q6H PRN PO 10/26/17 23:15 11/25/17 23:14 10/27/17 05:34 80 MG (Lyric Sheth, [employer]) Objective Vital Signs Date Time Temp Pulse Resp B/P (MAP) Pulse Ox O2 Delivery O2 Flow Rate FiO2 10/26/17 16:00 96 Room Air 10/26/17 14:51 36.6 82 20 129/75 (93) 96 Room Air 10/26/17 11:45 80 94 10/26/17 08:44 71 20 124/74 (91) 91 Room Air 10/26/17 08:00 93 Room Air 10/26/17 07:09 36.8 72 17 113/71 (85) 93 Room Air 10/26/17 00:00 93 Room Air 10/25/17 23:11 36.7 78 18 127/70 (89) 93 Room Air 10/25/17 19:52 93 Room Air 10/25/17 19:38 36.9 85 18 110/73 (85) 93 Room Air 10/25/17 19:13 37.5 80 16 103/66 97 10/25/17 18:03 96 Room Air 10/25/17 17:42 79 14 105/62 96 Room Air 10/25/17 17:32 81 (Lyric Sheth, [employer]) Physical Exam Notes: General: no distress Eyes: normal inspection, PERLL Respiratory: chest non tender, clear to auscultation, normal breath sounds, no respiratory distress, no accessory muscle use Cardiac: regular rate and rhythm, no rub or gallop, no murmur, no edema, no jvd GI/: active bowel sounds, no abd pain or tenderness, soft, non distended Extremities: normal range of motion, normal strength, non tender Neuro/Psych: alert and oriented x 3, normal mood and affect Skin: normal color, dry (Lyric Sheth CRNP) Laboratory Results Last 24 Hours Test 10/26/17 07:35 White Blood Count 7.59 K/uL Red Blood Count 4.09 M/uL Hemoglobin 10.7 g/dL Hematocrit 33.7 % Mean Corpuscular Volume 82.4 fL Mean Corpuscular Hemoglobin 26.2 pg Mean Corpuscular Hemoglobin Concent 31.8 g/dl Platelet Count 254 K/uL Mean Platelet Volume 10.6 fL Neutrophils (%) (Auto) 62.7 % Lymphocytes (%) (Auto) 25.3 % Monocytes (%) (Auto) 9.0 % Eosinophils (%) (Auto) 2.1 % Basophils (%) (Auto) 0.4 % Neutrophils # (Auto) 4.76 K/uL Lymphocytes # (Auto) 1.92 K/uL Monocytes # (Auto) 0.68 K/uL Eosinophils # (Auto) 0.16 K/uL Basophils # (Auto) 0.03 K/uL RDW Standard Deviation 54.0 fL RDW Coefficient of Variation 18.0 % Immature Granulocyte % (Auto) 0.5 % Immature Granulocyte # (Auto) 0.04 K/uL Sodium Level 140 mmol/L Potassium Level 3.3 mmol/L Chloride Level 110 mmol/L Carbon Dioxide Level 24 mmol/L Anion Gap 6.0 mmol/L Blood Urea Nitrogen 7 mg/dl Creatinine 0.93 mg/dl Est Creatinine Clear Calc Drug Dose 61.3 ml/min Estimated GFR () 72.7 Estimated GFR (Non- 62.7 BUN/Creatinine Ratio 7.7 Random Glucose 95 mg/dl Calcium Level 9.4 mg/dl (Lyric Sheth CRNP) Assessment and Plan This is a 67 yo female with PMHx of diverticulitis requiring hospitalization with microperforation in July 2017, asthma, common variable immunodeficiency/ hypogammaglobulinemia on monthly infusions of IV Ig (last infusion was on ), hypothyroidism, HTN, HLD, GERD, autonomic dysfunction causing syncope on Florinef, allergic rhinitis and chronic sinusitis who presents to the ER with worsening abdominal pain 5 days Acute diverticulitis/colitis hx diverticulitis in July 2017 with micro perforation -CT reviewed and does not show microperforation or abscess at this time, likely can resolve diverticulitis/colitis with IV antibiotics - Diet advanced per GI to clear liquids, patient tolerating well - Continue Cipro and Flagyl IV -Leukocytosis improved -18 K initially, now 7.6 - IVF stopped, patient taking po -GI consultation- patient has plans for consultation with colorectal surgeon at [facility] Common variable immunodeficiency/ hypogammaglobulinemia - has received IVIG 30 gms q. 28 days since August [address] Harrington (last infusion was on 10/17/17) Autonomic dysfunction causing syncope - continue Florinef 0.1 mg daily, follows with Dr. Carbajal HTN - Hold Dyazide at this time HLD -Continue statin therapy Hypothyroidism -Continue levothyroxine DVT ppx: Teds, SCDs, ambulatory CODE STATUS: Full Disposition: Patient from home, lives with (Lyric Sheth ., MARIBEL) Supervising Note Dr. Lopez I performed a history and physical examination on the patient. I reviewed above note and agree with it. I discussed plan with APC and patient. During my face to face encounter with the patient, I answered all of the patient's questions. Cont. current IV antibiotics Cipro and flagyl (Maksim Lopez M.D.)
[2017-10-26] MEDS: CEFTRIAXONE SOD INJ 2000 MG in DEXTROSE 5% 50ML IV SCH (20:09)
[2017-10-26] MEDS: PANTOprazole SOD 40 MG TAB PO SCH (21:25)
[2017-10-26] MEDS: RANITIDINE HCL 150 MG TAB PO SCH (21:26)
[2017-10-26] MEDS: SIMVASTATIN 20 MG TAB PO SCH (21:26)
[2017-10-27] MEDS: METRONIDAZOLE / NSS 500 MG in PREMIXED NSS 100 ML IV SCH ×4 (00:14→23:26)
[2017-10-27] MEDS: SIMETHICONE 80 MG CHEW PO PRN ×3 (01:01→21:29)
[2017-10-27] MEDS: NSS + 20MEQ KCL 1000ML 1,000 ML IV SCH ×2 (05:34→16:49)
[2017-10-27] MEDS: LEVOTHYROXINE 50 MCG TAB PO SCH (05:36)
[2017-10-27 06:18] LABS: BASO % 0.2 %; BASO ABS # 0.02 K/uL (0-0.2); EOS % 2.2 %; HEMOGLOBIN 10.6 g/dL (12.0-16.0); IG# 0.03 K/uL (0.00-0.02); LYMPH % 20.7 %; LYMPH ABS # 1.88 K/uL (1.2-3.4); MEAN CELL VOLUME 82.3 fL (80-100); MEAN CORPUSCULAR HEMOGLOBIN 26.4 pg (25-34); MEAN CORPUSCULAR HGB CONC 32.1 g/dl (32-36); MONO % 8.7 %; MONO ABS # 0.79 K/uL (0.11-0.59); NEUT % 67.9 %; NEUT ABS # 6.15 K/uL (1.4-6.5); PLATELET COUNT 251 K/uL (130-400); RED CELL DISTRIBUTION WIDTH CV 17.9 % (11.5-14.5); RED CELL DISTRIBUTION WIDTH SD 54.4 fL (36.4-46.3); WHITE BLOOD COUNT 9.07 K/uL (4.8-10.8)
[2017-10-27 06:53] LABS: ALBUMIN 2.6 gm/dl (3.4-5.0); CALCIUM 9.7 mg/dl (8.5-10.1); CREATININE 0.8 mg/dl (0.60-1.20); POTASSIUM 3.6 mmol/L (3.5-5.1)
[2017-10-27 06:57] LABS: TOTAL PROTEIN 6.3 gm/dl (6.4-8.2)
[2017-10-27 07:10] VITALS: BP 128/67; PULSE 87; TEMP 36.8; O2SAT 95
[2017-10-27 08:00] VITALS: O2SAT 95
[2017-10-27] MEDS: FLUTICASONE/SALMETEROL (ADVAIR) 500/50 INH 14 PUFF INH SCH ×2 (08:20→20:37)
[2017-10-27] MEDS: FLUDROCORTISONE ACETATE 0.1 MG TAB PO SCH (08:21)
[2017-10-27] MEDS: LACTOBACILLUS ACIDOPHILUS (FLORANEX) TAB PO SCH ×3 (08:21→16:49)
[2017-10-27] MEDS: MULTIVITAMIN TAB PO SCH (08:21)
[2017-10-27] MEDS: POTASSIUM CHLORIDE 20 MEQ TABCR PO SCH (08:21)
--- NOTE | 2017-10-27 13:11 | PROGRESS NOTE ---
DATE: 10/27/2017 REASON FOR EVALUATION: Diverticulitis. HISTORY OF PRESENT ILLNESS: The patient is hospitalized with her second bout of diverticulitis. Her first bout was complicated by microperforation which ended up healing without the need for surgery. She is currently on IV antibiotics and her white count has returned to normal. Her vital signs are normal and she is having no abdominal pain today, on questioning and exam. IMPRESSION: The patient has diverticulitis. She has a lot of adverse reactions to antibiotics and the plan is to try to arrange for her to get outpatient IV antibiotics and follow up with me in the office. She does have an appointment with me on 11/09/2017 at which point we will reassess things and hopefully arrange for a colonoscopy in a couple of months. She has not had one in about 9 years. Depending on how she does and what her colonoscopy shows, we may or may not need to refer her for surgical evaluation.
[2017-10-27 15:44] VITALS: BP 147/83; PULSE 79; TEMP 36.5; O2SAT 96
--- NOTE | 2017-10-27 16:08 | Hospitalist Progress Note ---
Hospitalist Progress Note Date of Service Oct 27, 2017. (Lyric Sheth ., MARIBEL) Subjective Pt evaluation today including: conversation w/ patient, conversation w/ family , physical exam, chart review, review of studies, conversation w/ application consultant Voiding: no voiding problems Ms. Cruz is feeling somewhat unwell today. She is tolerating her diet without n/v but is having quite a lot of gas pains. She did have a bm today. ROS Constitutional: no chills, aches, sweats or fever Respiratory: no sob,cough, sputum, or wheezing Cardiac: no chest pain, palpitations, edema, orthopnea or lightheadedness GI: see HPI : no dysuria or hesitancy Extremities: no joint pain or weakness Skin: no rash All other systems reviewed and negative (Lyric Sheth CRNP) Medications Medications Administered Medications (Trade) Dose Ordered Sig/Ross Route Start Time Stop Time Status Last Admin Dose Admin Sodium Chloride 1,000 ml @ 999 mls/hr Q1H1M STAT IV 10/25/17 12:32 10/25/17 13:32 DC 10/25/17 13:26 999 MLS/HR Ondansetron HCl (Zofran Inj) 4 mg NOW STAT IV 10/25/17 12:32 10/25/17 12:39 DC 10/25/17 13:26 4 MG Piperacillin Sod/ Tazobactam Sod (Zosyn Iv) 4.5 gm NOW STAT IV 10/25/17 15:38 10/25/17 15:40 DC 10/25/17 15:56 4.5 GM Fentanyl Citrate (Fentanyl Inj) 50 mcg NOW STAT IV 10/25/17 16:49 10/25/17 17:13 DC 10/25/17 17:00 50 MCG Metronidazole (Flagyl / Nss) 500 mg NOW STAT IV 10/25/17 16:49 10/25/17 17:13 DC 10/25/17 17:00 500 MG Ondansetron HCl (Zofran Inj) 4 mg Q6H PRN IV 10/25/17 17:30 11/24/17 17:29 10/26/17 23:07 4 MG Fludrocortisone Acetate (Florinef Tab) 0.1 mg QAM PO 10/26/17 08:00 5/26/18 08:59 10/27/17 08:21 0.1 MG Salmeterol Xinafoate/ Fluticasone (Advair Diskus 500/50 Inh) 1 puff BID INH 10/25/17 20:00 11/24/17 20:59 10/27/17 08:20 1 PUFF Levothyroxine Sodium (Synthroid Tab) 50 mcg DAILYBB PO 10/26/17 06:30 11/25/17 06:29 10/27/17 05:36 50 MCG Multivitamins (Multivitamin Tab) 1 tab QAM PO 10/26/17 08:00 11/25/17 08:59 10/27/17 08:21 1 TAB Potassium Chloride (Klor-Con Tab) 40 meq QAM PO 10/26/17 08:00 11/25/17 08:59 10/27/17 08:21 40 MEQ Ranitidine HCl (zANTac TAB) 300 mg HS PO 10/25/17 21:00 11/24/17 20:59 10/26/17 21:26 300 MG Simvastatin (Zocor Tab) 20 mg QPM PO 10/25/17 21:00 11/24/17 20:59 10/26/17 21:26 20 MG Pantoprazole Sodium (Protonix Tab) 40 mg HS PO 10/25/17 22:00 11/24/17 21:59 10/26/17 21:25 40 MG Metronidazole 500 mg/Prmx 100 ml @ 100 mls/hr Q8H IV 10/26/17 00:00 11/05/17 00:00 10/27/17 08:22 100 MLS/HR Lactobacillus Acidophilus (Floranex Tab) 4 tab TIDM PO 10/25/17 20:00 11/24/17 19:59 10/27/17 12:21 4 TAB Sodium Chloride 1,000 ml @ 100 mls/hr Q10H IV 10/25/17 17:23 10/26/17 05:22 DC 10/26/17 03:54 100 MLS/HR Ceftriaxone Sodium 2000 mg/ Dextrose 70 ml @ 140 mls/hr DAILY@2000 IV 10/25/17 20:00 11/04/17 19:59 10/26/17 20:09 140 MLS/HR Morphine Sulfate (MoRPHine SULFATE INJ) 4 mg Q4H PRN IV 10/25/17 22:45 5/9/18 22:44 10/26/17 08:01 4 MG Potassium Chloride/Sodium Chloride 1,000 ml @ 100 mls/hr Q10H IV 10/26/17 10:00 11/25/17 09:59 10/27/17 05:34 100 MLS/HR Potassium Chloride 100 ml @ 100 mls/hr 1000 ONCE IV 10/26/17 10:00 10/26/17 10:59 DC 10/26/17 10:16 100 MLS/HR Simethicone (Mylicon Chew Tab) 80 mg Q6H PRN PO 10/26/17 23:15 11/25/17 23:14 10/27/17 05:34 80 MG (Lyric Sheth CRNP) Objective Vital Signs Date Time Temp Pulse Resp B/P (MAP) Pulse Ox O2 Delivery O2 Flow Rate FiO2 10/27/17 15:44 36.5 79 18 147/83 (104) 96 Room Air 10/27/17 08:00 95 Room Air 10/27/17 07:10 36.8 87 18 128/67 (87) 95 Room Air 10/26/17 23:59 Room Air 10/26/17 22:50 36.8 81 17 126/78 (94) 95 Room Air (Lyric Sheth CRNP) Physical Exam Notes: General: no distress Eyes: normal inspection, PERLL Respiratory: chest non tender, clear to auscultation, normal breath sounds, no respiratory distress, no accessory muscle use Cardiac: regular rate and rhythm, no rub or gallop, no murmur, no edema, no jvd GI/: active bowel sounds, no abd pain or tenderness, soft, non distended Extremities: normal range of motion, normal strength, non tender Neuro/Psych: alert and oriented x 3, normal mood and affect Skin: normal color, dry (Lyric Sheth CRNP) Laboratory Results Last 24 Hours Test 10/27/17 05:45 White Blood Count 9.07 K/uL Red Blood Count 4.01 M/uL Hemoglobin 10.6 g/dL Hematocrit 33.0 % Mean Corpuscular Volume 82.3 fL Mean Corpuscular Hemoglobin 26.4 pg Mean Corpuscular Hemoglobin Concent 32.1 g/dl Platelet Count 251 K/uL Mean Platelet Volume 11.0 fL Neutrophils (%) (Auto) 67.9 % Lymphocytes (%) (Auto) 20.7 % Monocytes (%) (Auto) 8.7 % Eosinophils (%) (Auto) 2.2 % Basophils (%) (Auto) 0.2 % Neutrophils # (Auto) 6.15 K/uL Lymphocytes # (Auto) 1.88 K/uL Monocytes # (Auto) 0.79 K/uL Eosinophils # (Auto) 0.20 K/uL Basophils # (Auto) 0.02 K/uL RDW Standard Deviation 54.4 fL RDW Coefficient of Variation 17.9 % Immature Granulocyte % (Auto) 0.3 % Immature Granulocyte # (Auto) 0.03 K/uL Sodium Level 140 mmol/L Potassium Level 3.6 mmol/L Chloride Level 113 mmol/L Carbon Dioxide Level 21 mmol/L Anion Gap 6.0 mmol/L Blood Urea Nitrogen 4 mg/dl Creatinine 0.80 mg/dl Est Creatinine Clear Calc Drug Dose 71.3 ml/min Estimated GFR () 87.2 Estimated GFR (Non- 75.2 BUN/Creatinine Ratio 4.9 Random Glucose 103 mg/dl Calcium Level 9.7 mg/dl Total Bilirubin 0.3 mg/dl Aspartate Amino Transf (AST/SGOT) 15 U/L Alanine Aminotransferase (ALT/SGPT) 18 U/L Alkaline Phosphatase 108 U/L Total Protein 6.3 gm/dl Albumin 2.6 gm/dl Globulin 3.7 gm/dl Albumin/Globulin Ratio 0.7 (Lyric Sheth, MARIBEL) Assessment and Plan This is a 67 yo female with PMHx of diverticulitis requiring hospitalization with microperforation in July 2017, asthma, common variable immunodeficiency/ hypogammaglobulinemia on monthly infusions of IV Ig (last infusion was on ), hypothyroidism, HTN, HLD, GERD, autonomic dysfunction causing syncope on Florinef, allergic rhinitis and chronic sinusitis who presents to the ER with worsening abdominal pain 5 days Acute diverticulitis/colitis hx diverticulitis in July 2017 with micro perforation -CT reviewed and does not show microperforation or abscess at this time, likely can resolve diverticulitis/colitis with IV antibiotics - Diet advanced full liquids, patient tolerating well - Continue ceftriaxone and Flagyl IV -Leukocytosis improved -18 K initially, now wnl - IVF stopped, patient taking po -GI consultation- patient has plans for consultation with colorectal surgeon at [facility] - consulted ID for home regimen - patient vomits with Flagyl po and last admission had ID create a regimen for her that would be compatible with [facility] as she does not want Home Health because she is protective of her port. Common variable immunodeficiency/ hypogammaglobulinemia - has received IVIG 30 gms q. 28 days since August [address] Harrington (last infusion was on 10/17/17) Autonomic dysfunction causing syncope - continue Florinef 0.1 mg daily, follows with Dr. Carbajal HTN - Hold Dyazide at this time HLD -Continue statin therapy Hypothyroidism -Continue levothyroxine DVT ppx: Teds, SCDs, ambulatory CODE STATUS: Full Disposition: Patient from home, lives with (Meryl Lyric ., MARIBEL) Supervising Note Dr. Lopez I performed a history and physical examination on the patient. I reviewed above note and agree with it. I discussed plan with APC and patient. During my face to face encounter with the patient, I answered all of the patient's questions. Awaiting ID input for home regimen Currently on IV antibiotics Flagyl and Cipro. (Maksim Lopez M.D.)
[2017-10-27] MEDS: CEFTRIAXONE SOD INJ 2000 MG in DEXTROSE 5% 50ML IV SCH (20:37)
[2017-10-27] MEDS: RANITIDINE HCL 150 MG TAB PO SCH (20:38)
[2017-10-27] MEDS: PANTOprazole SOD 40 MG TAB PO SCH (20:38)
[2017-10-27] MEDS: SIMVASTATIN 20 MG TAB PO SCH (20:38)
[2017-10-27] MEDS: ONDANSETRON INJ 2 MG/ML 2 ML VIAL IV PRN (21:28)
[2017-10-27 23:23] VITALS: BP 166/93; PULSE 80; TEMP 36.5; O2SAT 96
[2017-10-28] MEDS: NSS + 20MEQ KCL 1000ML 1,000 ML IV SCH ×2 (05:18→14:32)
[2017-10-28] MEDS: LEVOTHYROXINE 50 MCG TAB PO SCH (05:18)
[2017-10-28] MEDS: ONDANSETRON INJ 2 MG/ML 2 ML VIAL IV PRN ×2 (05:18→16:44)
[2017-10-28 07:07] LABS: BASO % 0.2 %; BASO ABS # 0.02 K/uL (0-0.2); EOS % 2.7 %; EOS ABS # 0.22 K/uL (0-0.5); HEMATOCRIT 32.9 % (37-47); HEMOGLOBIN 10.4 g/dL (12.0-16.0); IG# 0.02 K/uL (0.00-0.02); LYMPH ABS # 1.62 K/uL (1.2-3.4); MEAN CORPUSCULAR HEMOGLOBIN 25.9 pg (25-34); MEAN CORPUSCULAR HGB CONC 31.6 g/dl (32-36); MEAN PLATELET VOLUME 10.3 fL (7.4-10.4); MONO % 8.7 %; NEUT % 68.2 %; NEUT ABS # 5.51 K/uL (1.4-6.5); PLATELET COUNT 236 K/uL (130-400); RED CELL DISTRIBUTION WIDTH SD 54.2 fL (36.4-46.3); WHITE BLOOD COUNT 8.09 K/uL (4.8-10.8)
[2017-10-28 07:38] VITALS: BP 151/87; PULSE 78; TEMP 36.5; O2SAT 94
[2017-10-28 08:00] VITALS: O2SAT 94
[2017-10-28] MEDS: FLUTICASONE/SALMETEROL (ADVAIR) 500/50 INH 14 PUFF INH SCH ×2 (08:01→20:17)
[2017-10-28] MEDS: LACTOBACILLUS ACIDOPHILUS (FLORANEX) TAB PO SCH ×3 (08:02→15:48)
[2017-10-28] MEDS: POTASSIUM CHLORIDE 20 MEQ TABCR PO SCH (08:02)
[2017-10-28] MEDS: MULTIVITAMIN TAB PO SCH (08:03)
[2017-10-28] MEDS: FLUDROCORTISONE ACETATE 0.1 MG TAB PO SCH (08:03)
[2017-10-28] MEDS: METRONIDAZOLE / NSS 500 MG in PREMIXED NSS 100 ML IV SCH (09:22)
--- NOTE | 2017-10-28 11:51 | PROGRESS NOTE ---
DATE: 10/28/2017 Patient states that she had a lot of discomfort during the night with nausea and gas and then earlier this morning had an explosive bowel movement and her abdominal symptoms improved significantly. Stool was collected and will be sent for C. diff. She remains afebrile and her white count has returned to normal at 8.09. She continues on IV Flagyl and ceftriaxone IV. Infectious disease is to be consulted to help arrange for an outpatient IV regimen as patient is not able to tolerate p.o. Flagyl. IMPRESSION: Patient's Clostridium difficile is improving. Her stool for Clostridium difficile is pending at this time and ID will be assessing her for outpatient IV antibiotics, so she can hopefully go home soon.
[2017-10-28 15:10] VITALS: BP_SYST 150; BP_SYST 157; BP_DIAS 82; BP_DIAS 96; PULSE 79; TEMP 36.5; O2SAT 96
--- NOTE | 2017-10-28 15:13 | Medical Consult ---
Consultation Date of Consultation: Oct 28, 2017. Attending Physician: Maksim Lopez M.D. Reason for Consultation: diverticulitis, home Abx History of Present Illness 67-year-old female known to the Infectious Disease service with history of common variable immunodeficiency receiving monthly IVIG, who was hospitalized in July with diverticulitis with micro perforation, treated with IV antibiotics and discharged home on IV ceftriaxone and oral metronidazole with improvement. She was seen in the emergency department on October 20 with abdominal pain with CT showing diverticulitis, patient received Augmentin, but pain worsened progressively, up to 7/10 intensity, and patient was ultimately rehospitalized for recurrent diverticulitis. Has not had significant fever. No evidence of abscess formation on CT scan. Patient currently receiving IV Zosyn with clinical improvement. Pain currently 2/10 in intensity. Past Medical/Surgical History Medical Problems: (1) Ankle pain Status: Acute (2) Asthma exacerbation Status: Acute (3) Closed head injury Status: Acute (4) Diverticulitis of colon with perforation Status: Acute (5) Diverticulitis of sigmoid colon Status: Acute (6) Forearm laceration Status: Acute (7) Fracture of fifth metatarsal bone of left foot Status: Acute (8) Hypoxia Status: Acute (9) Left lower lobe pneumonia Status: Acute (10) Pneumonia Status: Chronic (11) Rhinitis Status: Chronic (12) Syncope Status: Acute (13) Syncope Status: Acute (14) Syncope Status: Acute Medical Problems: (1) Asthma (2) Chronic asthmatic bronchitis (3) Common variable hypogammaglobulinemia (4) Common variable immunodeficiency (5) Diverticulitis (6) Gastroesophageal reflux disease (7) Hx of deep venous thrombosis (8) Hx pulmonary embolism (9) Hypercholesterolemia (10) Hyperlipidemia (11) Hypertension (12) Hypokalemia (13) Hypothyroidism (14) Perforation of intestine due to diverticulitis of gastrointestinal tract (15) Pneumonia (16) Respiratory failure with hypoxia (17) Rhinitis (18) Seasonal Allergies Surgical Problems: (1) Breast Biopsy 2006 (2) Hysterectomy 1989 (3) Knee Replacement Surgery (4) Right Rotator Cuff Repair 2004 (5) Vaginal Repair 1999 Family History Hypertension Lung disease Social History Smoking Status: Former Smoker Drug Use: none Marital Status: Housing Status: lives with family Occupation Status: retired Allergies Coded Allergies: Erythromycin (Verified Allergy, Severe, NAUSEA, DRY HEAVES, 10/20/17) Levofloxacin (Verified Allergy, Severe, Anaphylaxis, 10/20/17) Dust (Unverified Allergy, Intermediate, SETS OFF ASHMA, 10/25/17) POLLEN (Verified Allergy, Intermediate, SHORTNESS OF BREATH, 10/20/17) Aspirin (Verified Allergy, Unknown, HIVES, 10/20/17) Fluticasone (Verified Adverse Reaction, Unknown, DIZZINESS, 10/20/17) Current Inpatient Medications Current Inpatient Medications Medications (Trade) Dose Ordered Sig/Ross Route Start Time Stop Time Status Last Admin Dose Admin Ioversol (Optiray 320) 100 ml UD PRN IV 10/25/17 12:45 10/29/17 12:44 Acetaminophen (Tylenol Tab) 650 mg Q4H PRN PO 10/25/17 17:30 11/24/17 17:29 Ondansetron HCl (Zofran Inj) 4 mg Q6H PRN IV 10/25/17 17:30 11/24/17 17:29 10/28/17 05:18 4 MG Fludrocortisone Acetate (Florinef Tab) 0.1 mg QAM PO 10/26/17 08:00 11/25/17 08:59 10/28/17 08:03 0.1 MG Salmeterol Xinafoate/ Fluticasone (Advair Diskus 500/50 Inh) 1 puff BID INH 10/25/17 20:00 11/24/17 20:59 10/28/17 08:01 1 PUFF Levothyroxine Sodium (Synthroid Tab) 50 mcg DAILYBB PO 10/26/17 06:30 11/25/17 06:29 10/28/17 05:18 50 MCG Multivitamins (Multivitamin Tab) 1 tab QAM PO 10/26/17 08:00 11/25/17 08:59 10/28/17 08:03 1 TAB Potassium Chloride (Klor-Con Tab) 40 meq QAM PO 10/26/17 08:00 11/25/17 08:59 10/28/17 08:02 40 MEQ Ranitidine HCl (zANTac TAB) 300 mg HS PO 10/25/17 21:00 11/24/17 20:59 10/27/17 20:38 300 MG Simvastatin (Zocor Tab) 20 mg QPM PO 10/25/17 21:00 11/24/17 20:59 10/27/17 20:38 20 MG Pantoprazole Sodium (Protonix Tab) 40 mg HS PO 10/25/17 22:00 11/24/17 21:59 10/27/17 20:38 40 MG Metronidazole 500 mg/Prmx 100 ml @ 100 mls/hr Q8H IV 10/26/17 00:00 11/05/17 00:00 10/28/17 09:22 100 MLS/HR Lactobacillus Acidophilus (Floranex Tab) 4 tab TIDM PO 10/25/17 20:00 11/24/17 19:59 10/28/17 14:30 4 TAB Ceftriaxone Sodium 2000 mg/ Dextrose 70 ml @ 140 mls/hr DAILY@2000 IV 10/25/17 20:00 11/04/17 19:59 10/27/17 20:37 140 MLS/HR Morphine Sulfate (MoRPHine SULFATE INJ) 4 mg Q4H PRN IV 10/25/17 22:45 11/08/17 22:44 10/26/17 08:01 4 MG Heparin Sodium (Porcine) (Heparin 100 Unit/ml 5ml Flush) 5 ml PRN PRN IV 10/25/17 23:30 11/24/17 23:29 Potassium Chloride/Sodium Chloride 1,000 ml @ 100 mls/hr Q10H IV 10/26/17 10:00 11/25/17 09:59 10/28/17 14:32 100 MLS/HR Simethicone (Mylicon Chew Tab) 80 mg Q6H PRN PO 10/26/17 23:15 11/25/17 23:14 10/27/17 21:29 80 MG Review of Systems All systems were reviewed and are negative except as per HPI Physical Exam Date Time Temp Pulse Resp B/P (MAP) Pulse Ox O2 Delivery O2 Flow Rate FiO2 10/28/17 08:00 94 Room Air 10/28/17 07:38 36.5 78 20 151/87 (108) 94 Room Air 10/28/17 00:00 Room Air 10/27/17 23:23 36.5 80 20 166/93 (117) 96 Room Air 10/27/17 16:20 Room Air 10/27/17 15:44 36.5 79 18 147/83 (104) 96 Room Air General Appearance: WD/WN, no apparent distress Head: normocephalic, atraumatic Eyes: normal inspection, EOMI, sclerae normal ENT: normal ENT inspection, hearing grossly normal, pharynx normal Neck: supple, no adenopathy, thyroid normal, trachea midline Respiratory/Chest: chest non-tender, lungs clear, normal breath sounds, no respiratory distress Cardiovascular: regular rate, rhythm, no gallop, no murmur Abdomen/GI: normal bowel sounds, soft, no organomegaly, + tenderness (LLQ) Back: normal inspection, no CVA tenderness Extremities/Musculoskelatal: no calf tenderness, normal capillary refill, non- tender Neurologic/Psych: alert, normal mood/affect, oriented x 3 Skin: normal color, warm/dry, no rash Lymphatic: no adenopathy Laboratory Results RUN DATE: 10/28/17 [facility] LAB PAGE 1 RUN TIME: 1057 Specimen Inquiry PATIENT: MARSHA BELLA LOC: [id number] U # : [id number] AGE/SX: 67/F ROOM: [facility] REG : 10/25/[address]: Maksim Lopez M.D. : 1950 BED: 2 DIS : STATUS: ADM IN TLOC: SPEC #: [id number] DELMER: 10/28/17 STATUS: COMP REQ #: [id number] RECD: 10/28/[address] [facility] [address]: Alka. Falk MD SOURCE: STOOL ENTR: 10/28/[address] [facility] [address]: Lincoln Gross M.D. [facility]: Augie Milligan MD Patterson, Jennifer., D.O. Saborio, George A. M.D. Solic, John, M.D. ORDERED: CDIFF TOXIN B COMMENTS: Has Specimen Been Obtained/Collected? Y I have reviewed the C. diff order recommendations Y Procedure Result Verified Site CDIFF TOXIN B GENE*(2 YR OR >) Final 10/28/17 No C. difficile toxin B gene detected Last 24 Hours Test 10/28/17 06:48 White Blood Count 8.09 K/uL Red Blood Count 4.01 M/uL Hemoglobin 10.4 g/dL Hematocrit 32.9 % Mean Corpuscular Volume 82.0 fL Mean Corpuscular Hemoglobin 25.9 pg Mean Corpuscular Hemoglobin Concent 31.6 g/dl Platelet Count 236 K/uL Mean Platelet Volume 10.3 fL Neutrophils (%) (Auto) 68.2 % Lymphocytes (%) (Auto) 20.0 % Monocytes (%) (Auto) 8.7 % Eosinophils (%) (Auto) 2.7 % Basophils (%) (Auto) 0.2 % Neutrophils # (Auto) 5.51 K/uL Lymphocytes # (Auto) 1.62 K/uL Monocytes # (Auto) 0.70 K/uL Eosinophils # (Auto) 0.22 K/uL Basophils # (Auto) 0.02 K/uL RDW Standard Deviation 54.2 fL RDW Coefficient of Variation 18.0 % Immature Granulocyte % (Auto) 0.2 % Immature Granulocyte # (Auto) 0.02 K/uL Patient Name: MARSHA BELLA Unit Number: [id number] Dictated: 10/25/171442 Transcribed: 10/25/171442 EV Printed Date/Time: [~ rep prt dt]/[~ rep prt tm] [~ rep ct labl] - [~ rep ct ivnm] [place] [address] Dictated: 10/25/171442 Transcribed: 10/25/171442 EV Printed Date/Time: [~ rep prt dt]/[~ rep prt tm] [~ rep ct labl] - [~ rep ct ivnm] [~ rep ct add3]] CT SCAN OF THE ABDOMEN AND PELVIS WITH IV CONTRAST CLINICAL HISTORY: Left lower quadrant abdominal pain. COMPARISON STUDY: Abdominal CT dated 10/20/2017. TECHNIQUE: Following the IV administration of 94 cc of Optiray 320, CT scan of the abdomen and pelvis is performed from the lung bases to the proximal femora. Images are reviewed in the axial, sagittal, and coronal planes. IV contrast was administered without complication. A dose lowering technique was utilized adhering to the principles of ALARA. CT DOSE: 856.48 mGycm FINDINGS: Lung bases: The heart is normal in size and without pericardial effusion. The lung bases are clear noting bibasilar atelectasis. There is a small hiatal hernia. Liver: The contrast-enhanced liver is top normal in size measuring 17.4 cm in length. The liver demonstrates diffusely diminished attenuation consistent with hepatic steatosis. There is no intrahepatic biliary ductal dilatation. The hepatic veins and portal veins are patent. Gallbladder: Unremarkable. Spleen: Normal in size and attenuation. Pancreas: Moderately atrophic and grossly unremarkable. Adrenal glands: Unremarkable. Kidneys: The contrast enhanced kidneys are atrophic and without hydronephrosis. The kidneys enhance symmetrically. Numerous bilateral renal cysts measure up to 3.8 cm. Additional subcentimeter cortical hypodensities also likely represent cysts but are too small for definitive characterization. Abdominal vasculature: The abdominal aorta is normal in course and caliber. Bowel: There is moderate to advanced diverticulosis of the sigmoid colon. Wall thickening with pericolic inflammation and fluid is again seen involving the proximal sigmoid colon consistent with acute diverticulitis. No organized fluid collection is seen suggest abscess. There is mild wall thickening with pericolonic infiltration seen involving the left colon extending from the distal transverse colon to the sigmoid colon suggesting superimposed colitis. No bowel obstruction is seen. The appendix is well-visualized and normal. Peritoneum: There is no intraperitoneal free air or abdominal ascites. There is a small fat-containing umbilical hernia. Lymphadenopathy: None. Pelvic viscera: The bladder is normal as visualized. The uterus is surgically absent. No adnexal lesion is seen. Skeletal structures: The skeletal structures are osteopenic. There is moderate lumbosacral spondylosis. No lytic or blastic lesions are seen. IMPRESSION: 1. Findings of acute diverticulitis involving the proximal sigmoid colon are similar appearance to study dated 10/20/2017. No intraperitoneal free air is seen and there is no evidence of abscess. 2. There is mild edema and pericolonic inflammation seen involving the left colon extending from the distal transverse colon to the sigmoid. The appearance is consistent with a mild superimposed colitis. Clinical correlation will be required. 3. Hepatic steatosis. 4. Additional findings as above. Electronically signed by: Taz Talavera M.D. 10/25/2017 2:51 PM Dictated Date/Time: 10/25/2017 2:43 PM The status of this report is Signed. Draft = Not yet reviewed or approved by Radiologist. Signed = Reviewed and approved by Radiologist. <AttendingPhy></AttendingPhy> <FamilyPhy>Joselito Harrington M.D.</FamilyPhy> < PrimaryPhy>Joselito Harrington M.D.</PrimaryPhy> <UnitNumber>[id number]</UnitNumber> < VisitNumber>[id number]</VisitNumber> <PatientName>MARSHA BELLA</PatientName > <DateOfBirth>1950</DateOfBirth> <Location>[facility]</Location> <ServiceDate> 10/25/17</ServiceDate> <MNE>ESINDI</MNE> <OrderingPhy>Ronen Truong M.D.</ OrderingPhy> <OrderingPhyMNE>f rep ord dr gonzáles</OrderingPhyMNE> <DictatingPhyMNE> f rep dict dr gonzáles</DictatingPhyMNE> <CCListMNE>f rep ct mne</CCListMNE> < AdmittingPhyMNE>f pt admit dr gonzáles</AdmittingPhyMNE> <AttendingPhyMNE>f pt attend dr gonzáles</AttendingPhyMNE> <ConsultingPhyMNE>f pt consult dr gonzáles</ConsultingPhyMNE> <FamilyPhyMNE>f pt fam dr gonzáles</FamilyPhyMNE> <OtherPhyMNE>f pt other dr gonzáles</OtherPhyMNE> < PrimaryPhyMNE>f pt prim care dr gonzáles</PrimaryPhyMNE> <ReferringPhyMNE>f pt referring dr gonzáles</ReferringPhyMNE> Assessment & Plan Recurrent diverticulitis, now starting to respond to antibiotics. Agree with need for course of IV Abx (likely in range of 7-10 days), and have changed to ertapenem 1 gram daily to allow easier outpatient therapy. Will follow.
[2017-10-28] MEDS: ERTAPENEM IV 1 GM in SODIUM CHLOR 0.9% AD-VAN 50ML 50 ML IV SCH (15:47)
[2017-10-28] MEDS: SIMVASTATIN 20 MG TAB PO SCH (20:18)
[2017-10-28] MEDS: PANTOprazole SOD 40 MG TAB PO SCH (20:18)
[2017-10-28] MEDS: RANITIDINE HCL 150 MG TAB PO SCH (20:19)
[2017-10-28] MEDS ORDERED: CETIRIZINE HCL 10 MG TAB PO ONE (20:20)
--- NOTE | 2017-10-28 22:49 | Progress Note ---
Subjective Date of Service: Oct 28, 2017. Subjective Pt evaluation today including: conversation w/ patient, physical exam 67 yo female reports feeling no improvement from yesterday. Patient states that she has had muddy stools today. Patient states her abdominal pain is about the same. Patient reports that she is interested in having antibiotics at the [facility]. She believes that this will not be able to get this arranged over the weekend. Problem List Medical Problems: (1) Ankle pain Status: Acute (2) Asthma exacerbation Status: Acute (3) Closed head injury Status: Acute (4) Diverticulitis of colon with perforation Status: Acute (5) Diverticulitis of sigmoid colon Status: Acute (6) Forearm laceration Status: Acute (7) Fracture of fifth metatarsal bone of left foot Status: Acute (8) Hypoxia Status: Acute (9) Left lower lobe pneumonia Status: Acute (10) Pneumonia Status: Chronic (11) Rhinitis Status: Chronic (12) Syncope Status: Acute (13) Syncope Status: Acute (14) Syncope Status: Acute Review of Systems Constitutional: no chills, aches, sweats or fever Respiratory: no sob,cough, sputum, or wheezing Cardiac: no chest pain, palpitations, edema, orthopnea or lightheadedness GI: see HPI : no dysuria or hesitancy Extremities: no joint pain or weakness Skin: no rash All Other Systems: Reviewed and Negative Medications Current Inpatient Medications Medications (Trade) Dose Ordered Sig/Ross Route Start Time Stop Time Status Last Admin Dose Admin Ioversol (Optiray 320) 100 ml UD PRN IV 10/25/17 12:45 10/29/17 12:44 Acetaminophen (Tylenol Tab) 650 mg Q4H PRN PO 10/25/17 17:30 11/24/17 17:29 Ondansetron HCl (Zofran Inj) 4 mg Q6H PRN IV 10/25/17 17:30 11/24/17 17:29 10/28/17 16:44 4 MG Fludrocortisone Acetate (Florinef Tab) 0.1 mg QAM PO 10/26/17 08:00 11/25/17 08:59 10/28/17 08:03 0.1 MG Salmeterol Xinafoate/ Fluticasone (Advair Diskus 500/50 Inh) 1 puff BID INH 10/25/17 20:00 11/24/17 20:59 10/28/17 20:17 1 PUFF Levothyroxine Sodium (Synthroid Tab) 50 mcg DAILYBB PO 10/26/17 06:30 11/25/17 06:29 10/28/17 05:18 50 MCG Multivitamins (Multivitamin Tab) 1 tab QAM PO 10/26/17 08:00 11/25/17 08:59 10/28/17 08:03 1 TAB Potassium Chloride (Klor-Con Tab) 40 meq QAM PO 10/26/17 08:00 11/25/17 08:59 10/28/17 08:02 40 MEQ Ranitidine HCl (zANTac TAB) 300 mg HS PO 10/25/17 21:00 11/24/17 20:59 10/28/17 20:19 300 MG Simvastatin (Zocor Tab) 20 mg QPM PO 10/25/17 21:00 11/24/17 20:59 10/28/17 20:18 20 MG Pantoprazole Sodium (Protonix Tab) 40 mg HS PO 10/25/17 22:00 11/24/17 21:59 10/28/17 20:18 40 MG Lactobacillus Acidophilus (Floranex Tab) 4 tab TIDM PO 10/25/17 20:00 11/24/17 19:59 10/28/17 15:48 4 TAB Morphine Sulfate (MoRPHine SULFATE INJ) 4 mg Q4H PRN IV 10/25/17 22:45 11/08/17 22:44 10/26/17 08:01 4 MG Heparin Sodium (Porcine) (Heparin 100 Unit/ml 5ml Flush) 5 ml PRN PRN IV 10/25/17 23:30 11/24/17 23:29 Potassium Chloride/Sodium Chloride 1,000 ml @ 100 mls/hr Q10H IV 10/26/17 10:00 11/25/17 09:59 10/28/17 14:32 100 MLS/HR Simethicone (Mylicon Chew Tab) 80 mg Q6H PRN PO 10/26/17 23:15 11/25/17 23:14 10/27/17 21:29 80 MG Ertapenem 1 gm/ Sodium Chloride 50 ml @ 120 mls/hr Q24H IV 10/28/17 15:15 11/07/17 15:14 10/28/17 15:47 120 MLS/HR Cetirizine HCl (zyrTEC TAB) 10 mg QAM PO 10/29/17 08:00 11/28/17 07:59 Objective Vital Signs Date Time Temp Pulse Resp B/P (MAP) Pulse Ox O2 Delivery O2 Flow Rate FiO2 10/28/17 16:00 Room Air 10/28/17 15:10 36.5 79 18 157/82 (107) 96 Room Air 150/96 (114) 10/28/17 08:00 94 Room Air 10/28/17 07:38 36.5 78 20 151/87 (108) 94 Room Air 10/28/17 00:00 Room Air 10/27/17 23:23 36.5 80 20 166/93 (117) 96 Room Air Physical Exam Comments: General: no distress Eyes: normal inspection, PERLLA Respiratory: chest non tender, clear to auscultation, normal breath sounds, no respiratory distress, no accessory muscle use Cardiac: regular rate and rhythm, no rub or gallop, no murmur, no edema, no jvd GI/: active bowel sounds, no abd pain or tenderness, soft, non distended Extremities: normal range of motion, normal strength, non tender Neuro/Psych: alert and oriented x 3, normal mood and affect Skin: normal color, dry Laboratory Results Last 24 Hours Test 10/28/17 06:48 White Blood Count 8.09 K/uL Red Blood Count 4.01 M/uL Hemoglobin 10.4 g/dL Hematocrit 32.9 % Mean Corpuscular Volume 82.0 fL Mean Corpuscular Hemoglobin 25.9 pg Mean Corpuscular Hemoglobin Concent 31.6 g/dl Platelet Count 236 K/uL Mean Platelet Volume 10.3 fL Neutrophils (%) (Auto) 68.2 % Lymphocytes (%) (Auto) 20.0 % Monocytes (%) (Auto) 8.7 % Eosinophils (%) (Auto) 2.7 % Basophils (%) (Auto) 0.2 % Neutrophils # (Auto) 5.51 K/uL Lymphocytes # (Auto) 1.62 K/uL Monocytes # (Auto) 0.70 K/uL Eosinophils # (Auto) 0.22 K/uL Basophils # (Auto) 0.02 K/uL RDW Standard Deviation 54.2 fL RDW Coefficient of Variation 18.0 % Immature Granulocyte % (Auto) 0.2 % Immature Granulocyte # (Auto) 0.02 K/uL Assessment and Plan This is a 67 yo female with PMHx of diverticulitis requiring hospitalization with microperforation in July 2017, asthma, common variable immunodeficiency/ hypogammaglobulinemia on monthly infusions of IV Ig (last infusion was on ), hypothyroidism, HTN, HLD, GERD, autonomic dysfunction causing syncope on Florinef, allergic rhinitis and chronic sinusitis who presents to the ER with worsening abdominal pain 5 days Acute diverticulitis/colitis hx diverticulitis in July 2017 with micro perforation -CT reviewed and does not show microperforation or abscess at this time, likely can resolve diverticulitis/colitis with IV antibiotics - Diet advanced full liquids, patient tolerating well - Continue ceftriaxone and Flagyl IV -Leukocytosis improved -18 K initially, now wnl - IVF stopped, patient taking po -GI consultation- patient has plans for consultation with colorectal surgeon at [facility] - consulted ID for home regimen - patient vomits with Flagyl po and last admission had ID create a regimen for her that would be compatible with [facility] as she does not want Home Health because she is protective of her port. -ID today recommended ertapenem once daily. -Will set up [facility] with case sealer. Common variable immunodeficiency/ hypogammaglobulinemia - has received IVIG 30 gms q. 28 days since August [address] Harrington (last infusion was on 10/17/17) Autonomic dysfunction causing syncope - continue Florinef 0.1 mg daily, follows with Dr. Carbajal HTN - Hold Dyazide at this time ]. will restart dyazide in AM. HLD -Continue statin therapy Hypothyroidism -Continue levothyroxine DVT ppx: Teds, SCDs, ambulatory CODE STATUS: Full Disposition: Patient from home, lives with
[2017-10-28 23:36] VITALS: BP 136/81; PULSE 91; TEMP 36.8; O2SAT 94
[2017-10-29] MEDS: NSS + 20MEQ KCL 1000ML 1,000 ML IV SCH ×2 (01:39→12:07)
[2017-10-29] MEDS: LEVOTHYROXINE 50 MCG TAB PO SCH (06:39)
[2017-10-29 06:57] LABS: HEMATOCRIT 33.2 % (37-47); HEMOGLOBIN 10.7 g/dL (12.0-16.0); MEAN CELL VOLUME 82.2 fL (80-100); MEAN CORPUSCULAR HEMOGLOBIN 26.5 pg (25-34); MEAN CORPUSCULAR HGB CONC 32.2 g/dl (32-36); MEAN PLATELET VOLUME 11.1 fL (7.4-10.4); PLATELET COUNT 262 K/uL (130-400); RED CELL DISTRIBUTION WIDTH CV 18.2 % (11.5-14.5); RED CELL DISTRIBUTION WIDTH SD 55.2 fL (36.4-46.3); WHITE BLOOD COUNT 7.42 K/uL (4.8-10.8)
[2017-10-29 07:27] LABS: CALCIUM 9.5 mg/dl (8.5-10.1); CREATININE 0.83 mg/dl (0.60-1.20); POTASSIUM 3.7 mmol/L (3.5-5.1)
[2017-10-29 07:30] VITALS: BP 147/90; PULSE 81; TEMP 36.8; O2SAT 95
[2017-10-29] MEDS: FLUTICASONE/SALMETEROL (ADVAIR) 500/50 INH 14 PUFF INH SCH ×2 (09:00→20:20)
[2017-10-29] MEDS: LACTOBACILLUS ACIDOPHILUS (FLORANEX) TAB PO SCH ×3 (09:00→17:32)
[2017-10-29] MEDS: FLUDROCORTISONE ACETATE 0.1 MG TAB PO SCH (09:02)
[2017-10-29] MEDS: POTASSIUM CHLORIDE 20 MEQ TABCR PO SCH (09:02)
[2017-10-29] MEDS: TRIAMTERENE/HCTZ 37.5/25MG TAB PO SCH (09:03)
[2017-10-29] MEDS: MULTIVITAMIN TAB PO SCH (09:14)
[2017-10-29] MEDS: CETIRIZINE HCL 10 MG TAB PO SCH (09:15)
[2017-10-29 10:00] VITALS: O2SAT 95
--- NOTE | 2017-10-29 10:41 | PROGRESS NOTE ---
DATE: 10/29/2017 SUBJECTIVE: Patient states that she is feeling better with less abdominal pain, was able to sleep through the night last night. She is requesting some more to eat today. PHYSICAL EXAMINATION: VITAL SIGNS: Showed normal vital signs except for a slightly elevated blood pressure at 147/90. GASTROINTESTINAL: She was having 4 bowel movements yesterday, none today so far. LABORATORY DATA: Shows her white count remains normal at 7.42. She was seen by infectious disease yesterday and they are anticipating that she will be able to go home tomorrow on an outpatient IV course with ertapenem once a day for 7-10 days. IMPRESSION: Diverticulitis improving. Hopefully, arrangements can be made tomorrow for her to be discharged to complete her IV course of antibiotics as an outpatient. Will advance to a low fiber diet today.
[2017-10-29] MEDS: ERTAPENEM IV 1 GM in SODIUM CHLOR 0.9% AD-VAN 50ML 50 ML IV SCH (15:28)
[2017-10-29 15:34] VITALS: BP 158/92; PULSE 75; TEMP 36.7; O2SAT 97
[2017-10-29 16:00] VITALS: O2SAT 94
[2017-10-29] MEDS: PANTOprazole SOD 40 MG TAB PO SCH (20:20)
[2017-10-29] MEDS: SIMVASTATIN 20 MG TAB PO SCH (20:20)
[2017-10-29] MEDS: RANITIDINE HCL 150 MG TAB PO SCH (20:20)
[2017-10-29 23:30] VITALS: BP 138/76; PULSE 95; TEMP 36.8; O2SAT 96
--- NOTE | 2017-10-29 23:51 | Progress Note ---
Subjective Date of Service: Oct 29, 2017. Subjective Pt evaluation today including: conversation w/ patient, physical exam Patient reports today feeling significantly better this AM. Patient had a better night last evening and was able to rest finally. Patient only needed to go to bathroom twice in the evening. Today patient denies any abdominal pain. Patient is tolerating her advanced diet. Patient would like to be discharge tomorrow. Problem List Medical Problems: (1) Ankle pain Status: Acute (2) Asthma exacerbation Status: Acute (3) Closed head injury Status: Acute (4) Diverticulitis of colon with perforation Status: Acute (5) Diverticulitis of sigmoid colon Status: Acute (6) Forearm laceration Status: Acute (7) Fracture of fifth metatarsal bone of left foot Status: Acute (8) Hypoxia Status: Acute (9) Left lower lobe pneumonia Status: Acute (10) Pneumonia Status: Chronic (11) Rhinitis Status: Chronic (12) Syncope Status: Acute (13) Syncope Status: Acute (14) Syncope Status: Acute Review of Systems Constitutional: no chills, aches, sweats or fever Respiratory: no sob,cough, sputum, or wheezing Cardiac: no chest pain, palpitations, edema, orthopnea or lightheadedness GI: see HPI : no dysuria or hesitancy Extremities: no joint pain or weakness Skin: no rash All Other Systems: Reviewed and Negative Medications Current Inpatient Medications Medications (Trade) Dose Ordered Sig/Ross Route Start Time Stop Time Status Last Admin Dose Admin Acetaminophen (Tylenol Tab) 650 mg Q4H PRN PO 10/25/17 17:30 11/24/17 17:29 Ondansetron HCl (Zofran Inj) 4 mg Q6H PRN IV 10/25/17 17:30 11/24/17 17:29 10/28/17 16:44 4 MG Fludrocortisone Acetate (Florinef Tab) 0.1 mg QAM PO 10/26/17 08:00 11/25/17 08:59 10/29/17 09:02 0.1 MG Salmeterol Xinafoate/ Fluticasone (Advair Diskus 500/50 Inh) 1 puff BID INH 10/25/17 20:00 11/24/17 20:59 10/29/17 20:20 1 PUFF Levothyroxine Sodium (Synthroid Tab) 50 mcg DAILYBB PO 10/26/17 06:30 11/25/17 06:29 10/29/17 06:39 50 MCG Multivitamins (Multivitamin Tab) 1 tab QAM PO 10/26/17 08:00 11/25/17 08:59 10/29/17 09:14 1 TAB Potassium Chloride (Klor-Con Tab) 40 meq QAM PO 10/26/17 08:00 11/25/17 08:59 10/29/17 09:02 40 MEQ Ranitidine HCl (zANTac TAB) 300 mg HS PO 10/25/17 21:00 11/24/17 20:59 10/29/17 20:20 300 MG Simvastatin (Zocor Tab) 20 mg QPM PO 10/25/17 21:00 11/24/17 20:59 10/29/17 20:20 20 MG Pantoprazole Sodium (Protonix Tab) 40 mg HS PO 10/25/17 22:00 11/24/17 21:59 10/29/17 20:20 40 MG Lactobacillus Acidophilus (Floranex Tab) 4 tab TIDM PO 10/25/17 20:00 11/24/17 19:59 10/29/17 17:32 4 TAB Morphine Sulfate (MoRPHine SULFATE INJ) 4 mg Q4H PRN IV 10/25/17 22:45 11/08/17 22:44 10/26/17 08:01 4 MG Heparin Sodium (Porcine) (Heparin 100 Unit/ml 5ml Flush) 5 ml PRN PRN IV 10/25/17 23:30 11/24/17 23:29 10/29/17 18:51 5 ML Simethicone (Mylicon Chew Tab) 80 mg Q6H PRN PO 10/26/17 23:15 11/25/17 23:14 10/27/17 21:29 80 MG Ertapenem 1 gm/ Sodium Chloride 50 ml @ 120 mls/hr Q24H IV 10/28/17 15:15 11/07/17 15:14 10/29/17 15:28 120 MLS/HR Cetirizine HCl (zyrTEC TAB) 10 mg QAM PO 10/29/17 08:00 11/28/17 07:59 10/29/17 09:15 10 MG Triamterene/HCTZ (Maxzide 37.5/25 Tab) 0.5 tab QAM PO 10/29/17 08:00 11/28/17 07:59 10/29/17 09:03 0.5 TAB Objective Vital Signs Date Time Temp Pulse Resp B/P (MAP) Pulse Ox O2 Delivery O2 Flow Rate FiO2 10/29/17 23:30 36.8 95 20 138/76 (96) 96 Room Air 10/29/17 16:00 94 Room Air 10/29/17 15:34 36.7 75 18 158/92 (114) 97 Room Air 10/29/17 10:00 95 Room Air 10/29/17 07:30 36.8 81 18 147/90 (109) 95 Room Air 10/29/17 00:00 Room Air Physical Exam Comments: Constitutional: no chills, aches, sweats or fever Respiratory: no sob,cough, sputum, or wheezing Cardiac: no chest pain, palpitations, edema, orthopnea or lightheadedness GI: see HPI : no dysuria or hesitancy Extremities: no joint pain or weakness Skin: no rash Laboratory Results Last 24 Hours Test 10/29/17 06:23 White Blood Count 7.42 K/uL Red Blood Count 4.04 M/uL Hemoglobin 10.7 g/dL Hematocrit 33.2 % Mean Corpuscular Volume 82.2 fL Mean Corpuscular Hemoglobin 26.5 pg Mean Corpuscular Hemoglobin Concent 32.2 g/dl RDW Standard Deviation 55.2 fL RDW Coefficient of Variation 18.2 % Platelet Count 262 K/uL Mean Platelet Volume 11.1 fL Sodium Level 141 mmol/L Potassium Level 3.7 mmol/L Chloride Level 113 mmol/L Carbon Dioxide Level 22 mmol/L Anion Gap 6.0 mmol/L Blood Urea Nitrogen 1 mg/dl Creatinine 0.83 mg/dl Est Creatinine Clear Calc Drug Dose 68.7 ml/min Estimated GFR () 83.4 Estimated GFR (Non- 71.9 BUN/Creatinine Ratio 1.5 Random Glucose 100 mg/dl Calcium Level 9.5 mg/dl Assessment and Plan This is a 67 yo female with PMHx of diverticulitis requiring hospitalization with microperforation in July 2017, asthma, common variable immunodeficiency/ hypogammaglobulinemia on monthly infusions of IV Ig (last infusion was on ), hypothyroidism, HTN, HLD, GERD, autonomic dysfunction causing syncope on Florinef, allergic rhinitis and chronic sinusitis who presents to the ER with worsening abdominal pain 5 days Acute diverticulitis/colitis hx diverticulitis in July 2017 with micro perforation -Patient is clincially improving. -CT reviewed and does not show microperforation or abscess at this time, likely can resolve diverticulitis/colitis with IV antibiotics - Diet advanced to low fiber diet, patient tolerating well - was on ceftriaxone and Flagyl IV -Leukocytosis improved -18 K initially, now wnl - IVF stopped, patient taking po -GI consultation- patient has plans for consultation with colorectal surgeon at [facility] - consulted ID for home regimen - patient vomits with Flagyl po and last admission had ID create a regimen for her that would be compatible with [facility] as she does not want Home Health because she is protective of her port. -ID today recommended ertapenem once daily. -Will set up [facility] with ed case manager on Monday. Plan is to discharge patient tomorrow. Common variable immunodeficiency/ hypogammaglobulinemia - has received IVIG 30 gms q. 28 days since August [address] Harrington (last infusion was on 10/17/17) Autonomic dysfunction causing syncope - continue Florinef 0.1 mg daily, follows with Dr. Carbajal HTN - Hold Dyazide at this time ]. will restart dyazide in AM. HLD -Continue statin therapy Hypothyroidism -Continue levothyroxine DVT ppx: Teds, SCDs, ambulatory CODE STATUS: Full Disposition: Patient from home, lives with Continued [facility] stay due to: multiple IV medications needed Discharge planning: home with IV medication
[2017-10-30] MEDS: LEVOTHYROXINE 50 MCG TAB PO SCH (05:59)
[2017-10-30 07:28] VITALS: BP 141/86; PULSE 81; TEMP 36.7; O2SAT 96
[2017-10-30] MEDS: FLUTICASONE/SALMETEROL (ADVAIR) 500/50 INH 14 PUFF INH SCH (08:53)
[2017-10-30] MEDS: POTASSIUM CHLORIDE 20 MEQ TABCR PO SCH (08:54)
[2017-10-30] MEDS: TRIAMTERENE/HCTZ 37.5/25MG TAB PO SCH (08:54)
[2017-10-30] MEDS: LACTOBACILLUS ACIDOPHILUS (FLORANEX) TAB PO SCH ×2 (08:55→11:25)
[2017-10-30] MEDS: CETIRIZINE HCL 10 MG TAB PO SCH (08:56)
[2017-10-30] MEDS: MULTIVITAMIN TAB PO SCH (08:56)
[2017-10-30] MEDS: FLUDROCORTISONE ACETATE 0.1 MG TAB PO SCH (08:56)
[2017-10-30] MEDS: ERTAPENEM IV 1 GM in SODIUM CHLOR 0.9% AD-VAN 50ML 50 ML IV SCH (11:25)
[2017-10-30 12:42] VITALS: BP 141/86; PULSE 81; TEMP 36.7; O2SAT 96
[2017-10-30] MEDS ORDERED: INVAV1 IV (13:36)
--- NOTE | 2017-10-30 13:42 | Discharge Instructions ---
Discharge Instructions Date of Service Oct 30, 2017. Admission Reason for Admission: Diverticulitis Discharge Discharge Diagnosis / Problem: diverticulitis Discharge Goals Goal(s): Improve disease control Activity Recommendations Activity Limitations: resume your previous activity . Instructions / Follow-Up Instructions / Follow-Up Please follow up with your primary care provider within about a week Your appointments for the [facility] antibiotic infusions are as follows: 10/31 scheduled 1230 needs to be there 1215 they were unable to change this time 11/01 scheduled 11/02 scheduled 11/03 scheduled 09 Current Hospital Diet Patient's current hospital diet: Low Fiber Diet Discharge Diet Recommended Diet: Low Fiber Diet Procedures Procedures Performed: Abd US Abd/CT US Pending Studies Studies pending at discharge: no Laboratory Results Lipid Panel Test 10/17/17 09:20 Range/Units Triglycerides Level 166 H 0-150 mg/dl Cholesterol Level 139 0-200 mg/dl HDL Cholesterol 60 mg/dl Cholesterol/HDL Ratio 2.3 LDL Cholesterol, Calculated 46 mg/dl Medical Emergencies . Who to Call and When: Medical Emergencies: If at any time you feel your situation is an emergency, please call 911 immediately. . Non-Emergent Contact Non-Emergency issues call your: Primary Care Provider Call Non-Emergent contact if: you have a fever, your pain is worsening, your pain is concerning you, you have any medication questions . . "Provider Documentation" section prepared by Lyric Sheth. .
--- NOTE | 2017-10-30 13:50 | Discharge Summary ---
Discharge Summary Date of Service Oct 30, 2017. Discharge Summary Admission Date: Oct 25, 2017 at 17:51 Discharge Date: Oct 30, 2017 Discharge Disposition: Home Principal Diagnosis: diverticululitis Problems/Secondary Diagnoses: Common variable immunodeficiency/ hypogammaglobulinemia, Autonomic dysfunction causing syncope, HTN, HLD, Hypothyroidism Immunizations: Have You Had Influenza Vaccine: Unknown History of Tetanus Vaccine?: Yes History of Pneumococcal: Unknown History of Hepatitis B Vaccine: Unknown Procedures: DOPPLER ULTRASOUND OF THE MESENTERIC VASCULATURE CLINICAL HISTORY: Colitis. COMPARISON STUDY: Abdominal CT dated 10/25/2017. TECHNIQUE: Real-time, grayscale, and color Doppler assessment of the portal vasculature was performed. FINDINGS: The abdominal aorta is patent with velocities measuring up to 138 cm/s. The celiac trunk is patent with normal arterial waveforms. Velocities within the celiac trunk measure up to 127 cm/s. The superior mesenteric artery is patent with normal arterial waveforms. Velocities measure up to 164 cm/s. Survey images of the liver show evidence of hepatic steatosis. IMPRESSION: Unremarkable Doppler assessment of the mesenteric vasculature. Dictated: 10/26/2017 1:[address] SCAN OF THE ABDOMEN AND PELVIS WITH IV CONTRAST CLINICAL HISTORY: Left lower quadrant abdominal pain. COMPARISON STUDY: Abdominal CT dated 10/20/2017. TECHNIQUE: Following the IV administration of 94 cc of Optiray 320, CT scan of the abdomen and pelvis is performed from the lung bases to the proximal femora. Images are reviewed in the axial, sagittal, and coronal planes. IV contrast was administered without complication. A dose lowering technique was utilized adhering to the principles of ALARA. CT DOSE: 856.48 mGycm FINDINGS: Lung bases: The heart is normal in size and without pericardial effusion. The lung bases are clear noting bibasilar atelectasis. There is a small hiatal hernia. Liver: The contrast-enhanced liver is top normal in size measuring 17.4 cm in length. The liver demonstrates diffusely diminished attenuation consistent with hepatic steatosis. There is no intrahepatic biliary ductal dilatation. The hepatic veins and portal veins are patent. Gallbladder: Unremarkable. Spleen: Normal in size and attenuation. Pancreas: Moderately atrophic and grossly unremarkable. Adrenal glands: Unremarkable. Kidneys: The contrast enhanced kidneys are atrophic and without hydronephrosis. The kidneys enhance symmetrically. Numerous bilateral renal cysts measure up to 3.8 cm. Additional subcentimeter cortical hypodensities also likely represent cysts but are too small for definitive characterization. Abdominal vasculature: The abdominal aorta is normal in course and caliber. Bowel: There is moderate to advanced diverticulosis of the sigmoid colon. Wall thickening with pericolic inflammation and fluid is again seen involving the proximal sigmoid colon consistent with acute diverticulitis. No organized fluid collection is seen suggest abscess. There is mild wall thickening with pericolonic infiltration seen involving the left colon extending from the distal transverse colon to the sigmoid colon suggesting superimposed colitis. No bowel obstruction is seen. The appendix is well-visualized and normal. Peritoneum: There is no intraperitoneal free air or abdominal ascites. There is a small fat-containing umbilical hernia. Lymphadenopathy: None. Pelvic viscera: The bladder is normal as visualized. The uterus is surgically absent. No adnexal lesion is seen. Skeletal structures: The skeletal structures are osteopenic. There is moderate lumbosacral spondylosis. No lytic or blastic lesions are seen. IMPRESSION: 1. Findings of acute diverticulitis involving the proximal sigmoid colon are similar appearance to study dated 10/20/2017. No intraperitoneal free air is seen and there is no evidence of abscess. 2. There is mild edema and pericolonic inflammation seen involving the left colon extending from the distal transverse colon to the sigmoid. The appearance is consistent with a mild superimposed colitis. Clinical correlation will be required. 3. Hepatic steatosis. 4. Additional findings as above. Electronically signed by: Taz Talavera M.D. 10/25/2017 2:51 PM Consultations: Dr. Gross from GI Medication Reconciliation New Medications: Ertapenem (Invanz) 1 Gm Inj 1 GM IV DAILY for 4 Days, #4 DOSE to be given at [facility] Continued Medications: Albuterol Hfa (Ventolin Hfa) 200 Puffs/31833 Mcg Aers 2 PUFFS INH Q4H PRN for SOB/Wheezing Albuterol Sulf (Proventil 0.083% 2.5MG/3ML) 2.5 Mg/3 Ml Nebu 2.5 MG INH Q6H PRN for SOB/Wheezing Cetirizine Hcl (Zyrtec) 10 Mg Tab 10 MG PO QAM Docusate Sodium (Colace) 100 Mg Cap 1 CAP PO BID Fish Oil ([place]-3) 1 Ea Cap 1 CAP PO BID Fludrocortisone Acetate (Florinef) 0.1 Mg Tab 0.1 MG PO QAM Fluticasone Prop/Salmeterol (Advair Diskus 500/50 60 Dose) 1 Ea Aerp 1 PUFF INH BID Immune Globulin (Human) (Gammagard Liquid) Unknown Strength Inj 1 DOSE INJ Q28D INFUSION EVERY 28 DAYS Lactobacillus (Probiotic) 1 Cap Cap 2 CAP PO QAM Lactobacillus (Probiotic) 1 Cap Cap 1 CAP PO QPM Lansoprazole (Prevacid) 30 Mg Capcr 30 MG PO HS Levothyroxine Sodium (Synthroid) 50 Mcg Tab 50 MCG PO QAM Multivitamin (Multivitamin) Tab 1 TAB PO QAM Potassium Chloride (Potassium Chloride ER) 20 Meq Tabcr 40 MEQ PO QAM Ranitidine Hcl (Zantac) 300 Mg Tab 300 MG PO HS Simvastatin (Zocor) 20 Mg Tab 20 MG PO QPM Triamcinolone Acetonide (Nasal (Nasacort Allergy 24Hr) 55 Mcg/Act Spr 2 SPRAYS YARIEL QAM PRN for . Triamterene/Hctz (Dyazide 37.5MG/25MG) Cap 0.5 TAB PO QAM [Zofran Odt 4MG] () 4 MG PO Q6H PRN for Nausea Discontinued Medications: Amoxicillin & Pot Clavulanate (Augmentin 875-125 mg) 1 Tab Tab 1 TAB PO BID Psyllium (Metamucil Original Textur) 48.57 % Pow 2 TBS PO QAM Discharge Exam ROS Constitutional: no chills, aches, sweats or fever Respiratory: no sob,cough, sputum, or wheezing Cardiac: no chest pain, palpitations, edema, orthopnea or lightheadedness GI: no abdominal pain, nausea, vomiting, diarrhea or constipation : no dysuria or hesitancy Extremities: no joint pain or weakness Skin: no rash All other systems reviewed and negative PE General: no distress Eyes: normal inspection, PERLL Respiratory: chest non tender, clear to auscultation, normal breath sounds, no respiratory distress, no accessory muscle use Cardiac: regular rate and rhythm, no rub or gallop, no murmur, no edema, no jvd GI/: active bowel sounds, no abd pain or tenderness, soft, non distended Extremities: normal range of motion, normal strength, non tender Neuro/Psych: alert and oriented x 3, normal mood and affect Skin: normal color, dry Hospital Course This is a 67 yo female with PMHx of diverticulitis requiring hospitalization with microperforation in July 2017, asthma, common variable immunodeficiency/ hypogammaglobulinemia on monthly infusions of IV Ig (last infusion was on ), hypothyroidism, HTN, HLD, GERD, autonomic dysfunction causing syncope on Florinef, allergic rhinitis and chronic sinusitis who presented to the ER with worsening abdominal pain 5 days Acute diverticulitis/colitis hx diverticulitis in July 2017 with micro perforation -CT did not show microperforation or abscess at this time, likely can resolve diverticulitis/colitis with IV antibiotics - Diet advanced to low fiber, patient tolerating well -Leukocytosis improved -18 K initially, now wnl - IVF stopped, patient taking po -GI consultation- patient has plans for consultation with colorectal surgeon at [facility] - consulted ID for home regimen - patient vomits with Flagyl po and last admission had ID create a regimen for her that would be compatible with [facility] as she does not want Home Health because she is protective of her port. Inpatient she received ceftriaxone and flagyl IV, she will go to the [facility] for four more days of ertapenem treatment Common variable immunodeficiency/ hypogammaglobulinemia - has received IVIG 30 gms q. 28 days since August [address] Harrington (last infusion was on 10/17/17) Autonomic dysfunction causing syncope - continue Florinef 0.1 mg daily, follows with Dr. Carbajal HTN - Hold Dyazide at this time HLD -Continue statin therapy Hypothyroidism -Continue levothyroxine COMMERCIAL CREDIT REVIEWER Physician Supervision Note: I interviewed and examined the patient. Discussed with Lyric Sheth COMMERCIAL CREDIT REVIEWER and agree with findings and plan as documented in the note. Any exceptions or clarifications are listed here: None Patient is done quite well during her hospital stay due to some intolerance of medications she is scheduled to be at the medical treatment unit of ertapenem for diverticulitis be her A-Port this is overseen by infectious disease. Patient and her were present time of discharge and no complaints or questions Vital signs at the time of just discharge showed temperature of 36.7 pulse 81 respiration rate 18 BP 141/86 her cardiac exam is regular lungs are clear patient be discharged after receiving an earlier dose of ertapenem today and following up with medical treatment unit as scheduled by case management Documented By: Kenneth Mendez Total Time Spent: Greater than 30 minutes This includes examination of the patient, discharge planning, medication reconciliation, and communication with other providers. Discharge Instructions Please refer to the electronic Patient Visit Report (Discharge Instructions) for additional information. Follow-Up pcp in a week, GI Additional Copies To Joselito Harrington M.D.
[2017-10-30 15:09] VITALS: BP 162/101; PULSE 98; TEMP 36; O2SAT 97
== END 2017-10-30 15:21 | disposition home or self-care (01) | DRG 392 ==
LOC: EDBD 12:04 → C.EDC 12:06 → C.MS4W 17:51 → ENRESERV 19:02
PROVIDERS: ADMIT Internal Medicine; ATTEND Internal Medicine
DX: K57.92 Diverticulitis of intestine, part unspecified, without perforation or abscess without bleeding (principal); D80.1 Nonfamilial hypogammaglobulinemia; D83.9 Common variable immunodeficiency, unspecified; J45.909 Unspecified asthma, uncomplicated; K21.9 Gastro-esophageal reflux disease without esophagitis; E78.5 Hyperlipidemia, unspecified; I10 Essential (primary) hypertension; E03.9 Hypothyroidism, unspecified; K52.9 Noninfective gastroenteritis and colitis, unspecified; Z96.659 Presence of unspecified artificial knee joint; Z90.710 Acquired absence of both cervix and uterus; Z88.6 Allergy status to analgesic agent; Z87.891 Personal history of nicotine dependence; Z87.01 Personal history of pneumonia (recurrent); Z86.718 Personal history of other venous thrombosis and embolism; Z86.711 Personal history of pulmonary embolism; Z82.49 Family history of ischemic heart disease and other diseases of the circulatory system

== ENCOUNTER 2018-10-28 18:41 | Inpatient (IN) ==
[2018-10-28] MEDS ORDERED: ONDANSETRON INJ 2 MG/ML 2 ML VIAL IV STA ×2 (19:04→21:50)
[2018-10-28] MEDS ORDERED: SODIUM CHLORIDE 0.9% 1000ML 2,000 ML IV SCH (19:15)
[2018-10-28 19:36] LABS: Basophils # (auto) 0.03 K/uL (0-0.2); Basophils % (auto) 0.3 %; Eosinophils # (auto) 0.17 K/uL (0-0.5); Eosinophils % (auto) 1.8 %; Hemoglobin 12.6 g/dL (12.0-16.0); Immature Granulocytes # (auto) 0.03 K/uL (0.00-0.02); Immature Granulocytes % (auto) 0.3 %; Lymphocytes # (auto) 1.84 K/uL (1.2-3.4); Lymphocytes % (auto) 19.2 %; Mean Corpuscular Hgb Conc 32.3 g/dL (32-36); Mean Corpuscular Volume 82.5 fL (80-100); Mean Platelet Volume 11.1 fL (7.4-10.4); Monocytes # (auto) 0.96 K/uL (0.11-0.59); Neutrophils # (auto) 6.53 K/uL (1.4-6.5); Neutrophils % (auto) 68.4 %; Platelet Count 239 K/uL (130-400); RDW Coefficient of Variation 17.7 % (11.5-14.5); RDW Standard Deviation 53.7 fL (36.4-46.3); Red Blood Count 4.73 M/uL (4.2-5.4); White Blood Count 9.56 K/uL (4.8-10.8)
[2018-10-28 19:46] LABS: Alanine Aminotransferase 23 U/L (12-78); Albumin Level 2.9 gm/dl (3.4-5.0); Aspartate Aminotransferase 19 U/L (15-37); BUN Creatinine Ratio 13.8 (10-20); Blood Urea Nitrogen 13 mg/dl (7-18); Calcium 9.9 mg/dl (8.5-10.1); Carbon Dioxide 23 mmol/L (21-32); Chloride 108 mmol/L (98-107); Est GFR (African American) 69.4; Est GFR (Non-African American) 59.9; Glucose 102 mg/dl (70-99); Potassium 3.3 mmol/L (3.5-5.1); Sodium 139 mmol/L (136-145)
[2018-10-28 19:49] LABS: Albumin Globulin Ratio 0.6 (0.9-2); Alkaline Phosphatase 130 U/L (45-117); Bilirubin,Total 0.7 mg/dl (0.2-1); Globulin 4.7 gm/dl (2.5-4.0); Total Protein 7.6 gm/dl (6.4-8.2)
[2018-10-28] MEDS ORDERED: IOVERSOL 100ml IV PRN (20:55)
[2018-10-28 21:19] LABS: Appearance Urine Clear (Clear); Bacteria Urine Automated Negative (Negative); Bilirubin Urine Negative (Negative); Blood Urine Negative (Negative); Color Urine Yellow; Epithelial Cell Urine Auto 20-30 /lpf (0-5); Glucose Urine UA Negative (Negative); Ketones Urine Negative (Negative); Leukocyte Esterase Urine 1+ (Negative); Nitrite Urine Negative (Negative); Protein Urine Negative (Negative); RBC Urine Automated 0-4 /hpf (0-4); Specific Gravity Urine 1.026 (1.000-1.030); Urobilinogen Urine Negative (Negative)
--- NOTE | 2018-10-28 21:21 | XRay Report ---
XR chest 1V portable HISTORY: 68 years-old Female cough acute cough with flulike symptoms COMPARISON: CT abdomen and pelvis of same day, chest radiograph 10/15/2018 TECHNIQUE: Portable AP view of the chest FINDINGS: Cardiac silhouette is mildly enlarged, unchanged. Stable positioning of the left subclavian Infuse-a- Port catheter. Calcification of the thoracic aortic arch. Recorder device projects over the left ches t. No pneumothorax, pleural effusion or overt pulmonary edema. Degenerative changes of the shoulders and spine. IMPRESSION: No acute process. The above report was generated using voice recognition software. It may contain grammatical, syntax o r spelling errors. Electronically signed by: Otf Soria M.D. 10/28/2018 9:20 PM
--- NOTE | 2018-10-28 21:46 | CT Scan Report ---
ABDOMEN AND PELVIS CT WITH IV CONTRAST CT DOSE: 1484.06 mGy.cm HISTORY: Acute lower abdominal pain abd pain TECHNIQUE: Multiaxial CT images of the abdomen and pelvis were performed following the use of intrave nous contrast. A dose lowering technique was utilized adhering to the principles of ALARA. COMPARISON STUDY: CT abdomen and pelvis 12/22/2017. FINDINGS: There is mild subsegmental bibasilar atelectasis. No pneumatosis or pneumoperitoneum. Inferior cardia c chambers are mildly enlarged. Hepatomegaly with hepatic steatosis. Liver otherwise appears unremarkable. No evidence of cirrhosis o r focal hepatic mass lesion. Spleen appears unremarkable. Pancreas and adrenal glands are unremarkabl e. Bladder is within normal limits. No biliary ductal dilation. Bilateral renal cysts measure up to 4 .0 cm on the right and 2.4 cm on the left. No renal or ureteral calculi or obstructive uropathy. Uret ers and urinary bladder are unremarkable. Prior hysterectomy. No adnexal mass lesions. Aorta and IVC are unremarkable. No adenopathy. Small hiatal hernia. No small bowel obstruction. Extensive colonic diverticulosis. There is minimal p ericolonic stranding noted about the mid sigmoid colon. No drainable fluid collection or evidence of perforation. Mild to moderate formed stool throughout the colon. Normal appendix. Diastases recti wit h small fat filled periumbilical hernia. Demineralized appearance of the bones. Degenerative changes of the spine, pelvis and hips. IMPRESSION: 1. Extensive colonic diverticulosis. Minimal pericolonic stranding about the mid sigmoid colon may re flect mild acute diverticulitis or a mild nonspecific colitis. No evidence of perforation or drainabl e fluid collection. 2. No bowel obstruction. 3. Suggested constipation. 4. Normal appendix. 5. Hepatomegaly with hepatic steatosis. 6. Additional findings as above. Electronically signed by: Otf Soria M.D. 10/28/2018 9:44 PM
[2018-10-28] MEDS ORDERED: AMOXICILLIN/CLAVULANATE 875 MG TAB PO ONE (21:52)
[2018-10-28] MEDS ORDERED: HEPARIN 100 UNIT/ML 5ML FLUSH ONE (22:26)
--- NOTE | 2018-10-28 22:39 | Emergency Department Note ---
Entered by Donavon Shepherd acting as a scribe for Sg Matos DO History of Present Illness General Chief complaint: Illness Stated complaint: VIRUS Source: patient History of Present Illness Onset (ago): week(s) (past couple) Location: abdomen Pain Consistency: + other (persistent bloating, denies abdominal pain) Quality: + other (bloating) Associated symptoms: + cough and + nausea/vomiting; no fever/chills The patient is a 68 year old female with a history of asthma and diverticulitis who presents to the Emergency Room with complaints of persistent abdominal bloating for the past couple of weeks. The patient denies any abdominal pain. She states that her last bowel movement was five days ago. The patient also reports several other symptoms including nasal drainage beginning two weeks ago that is currently improved, a dry cough beginning a couple of days later, fatigue, pressure in her ears, and vomiting 3-4 times last night. She notes that she has not vomited today. She denies fevers. She denies a history of abdominal surgery but is scheduled to have a bowel resection for diverticulitis. She states that she regularly takes fludrocortisone. Home Medications Home Medications Medication Instructions Recorded Confirmed Type albuterol sulfate 2.5 mg INHALATION Q6H PRN 06/09/18 10/28/18 History albuterol sulfate [Ventolin HFA] 2 puff INHALATION Q4H PRN 06/09/18 10/28/18 History cetirizine [Zyrtec] 10 mg PO QAM 06/09/18 10/28/18 History fludrocortisone 0.1 mg PO QAM 06/09/18 10/28/18 History fluticasone propion-salmeterol 1 inh INHALATION BID 06/09/18 10/28/18 History [Advair Diskus] lansoprazole 30 mg PO QAM 06/09/18 10/28/18 History levothyroxine 50 mcg PO QAM 06/09/18 10/28/18 History potassium chloride 40 meq PO QDL 06/09/18 10/28/18 History ranitidine HCl 300 mg PO HS 06/09/18 10/28/18 History simvastatin 20 mg PO HS 06/09/18 10/28/18 History triamcinolone acetonide [Nasacort] 2 spray INTRANASAL QAM 06/09/18 10/28/18 History triamterene-hydrochlorothiazid 1 tab PO QAM 06/09/18 10/28/18 History Probiotic Product 50,000,000 cell PO BID 09/08/18 10/28/18 History immune globulin,gamma(IgG)ifas 1 dose IV MONTHLY 09/08/18 10/28/18 History polyethylene glycol 3350 [Miralax] 8.5 g PO QDL 09/08/18 10/28/18 History amoxicillin-pot clavulanate 1 tab PO Q12H #20 tab 10/28/18 Rx [Augmentin] food supplemt, lactose-reduced 1 - 2 can PO DAILY 10/28/18 10/28/18 History [Ensure] ondansetron HCl [Zofran] 4 mg PO Q8H 3 Days #9 tab 10/28/18 Rx Allergies Allergy/AdvReac Type Severity Reaction Status Date / Time erythromycin base Allergy Severe NAUSEA, Verified 10/28/18 20:09 DRY HEAVES levofloxacin Allergy Severe Anaphylaxis Verified 10/28/18 20:09 pollen extracts Allergy Intermediate SHORTNESS Verified 10/28/18 20:09 OF BREATH aspirin Allergy Unknown HIVES Verified 10/28/18 20:09 fluticasone AdvReac Unknown DIZZINESS Verified 10/28/18 20:09 Dust Allergy Intermediate SETS OFF Uncoded 10/28/18 20:09 ASHMA Past Med/Surg History Medical History Common variable hypogammaglobulinemia Asthma (Chronic) Hx of deep venous thrombosis (Resolved) Hx pulmonary embolism (Resolved) Hyperlipidemia Diverticulitis Family History Other Family history non-contributory Social History Preferred Language: Surinamese Feels Safe at Home: Yes Smoking Status: Former smoker Review of Systems See HPI for pertinent positives & negatives. and A total of 10 systems reviewed and were otherwise negative Physical Exam Vital Signs Vital Signs - 24 hr 10/28/18 18:46 10/28/18 19:43 10/28/18 20:00 Temperature 36.7 C Temperature Source Oral Sepsis Recent Fever Within 48 Hours No Sepsis New/Unexplained Change in Mental Status No Sepsis Action Taken by Nursing No Action Required Pulse Rate 109 H Pulse Rate [Left Finger] 89 85 Pulse Rhythm [Left Finger] Regular Respiratory Rate 18 22 16 Respiratory Effort / Characteristics Non-Labored Non-Labored Respiratory Depth Normal Normal Respiratory Pattern Regular Regular Blood Pressure 156/93 H Blood Pressure [Left Arm] 168/105 H 159/97 H Blood Pressure Mean 114 Blood Pressure Mean [Left Arm] 126 117 Pulse Oximetry 96 94 95 Oxygen Delivery Method Room Air Room Air Room Air 10/28/18 21:37 10/28/18 22:03 Temperature Temperature Source Sepsis Recent Fever Within 48 Hours Sepsis New/Unexplained Change in Mental Status Sepsis Action Taken by Nursing Pulse Rate Pulse Rate [Left Finger] 87 92 H Pulse Rhythm [Left Finger] Respiratory Rate 20 17 Respiratory Effort / Characteristics Non-Labored Non-Labored Respiratory Depth Normal Normal Respiratory Pattern Regular Regular Blood Pressure Blood Pressure [Left Arm] 206/119 H 176/105 H Blood Pressure Mean Blood Pressure Mean [Left Arm] 148 128 Pulse Oximetry 95 95 Oxygen Delivery Method Room Air Room Air GENERAL: sitting up in bed, disheveled, dry cough, no distress, non-toxic EYE EXAM: normal conjunctiva OROPHARYNX: no exudate, no erythema, lips, buccal mucosa, and tongue normal and mucous membranes are moist EARS: TMs clear bilaterally NECK: supple, no nuchal rigidity, no adenopathy, non-tender LUNGS: Clear to auscultation. Normal chest wall mechanics HEART: no murmurs, S1 normal and S2 normal ABDOMEN: abdomen soft, non-tender, normo-active bowel sounds, no masses, no rebound or guarding. BACK: Back is symmetrical on inspection and there is no deformity, no midline tenderness, no CVA tenderness. SKIN: no rashes and no bruising UPPER EXTREMITIES: upper extremities are grossly normal. LOWER EXTREMITIES: No pitting edema. NEURO EXAM: Normal sensorium, cranial nerves II-XII grossly intact, normal speech, no gross weakness of arms, no gross weakness of legs. Gross sensation intact. Course ED COURSE: Vital signs were reviewed and showed hypertension and tachycardia The patients medical record was reviewed The above diagnostic studies were performed and reviewed. ED treatments and interventions as stated above. 1852: The patient was evaluated in room B11B. A complete history and physical examination was performed. 2149: Upon reevaluation, the patient is reporting improvement of her symptoms. I discussed my findings with the patient and she understands and agrees with the treatment plan. Based on the patients age, coexisting illnesses, exam and lab findings the decision to treat as an outpatient was made. The patient remained stable while under my care. The patient appeared well at the time of discharge. Administered Medications Ioversol (Optiray 320 100ml) 94 ml IV ONCE PRN PRN Reason: Interaction Checking Stop: 11/01/18 20:54 Last Admin: 10/28/18 20:55 Dose: 94 ml Documented by: [id number] Discontinued Medications Amoxicillin/Clavulanate Potassium (Augmentin 875mg) 1 tab PO NOW ONE Stop: 10/28/18 21:53 Last Admin: 10/28/18 22:01 Dose: 1 tab Documented by: [id number] Sodium Chloride (Nss 1000ml) 2,000 mls @ 999 mls/hr IV .Q2H1M KAREN Stop: 10/28/18 21:15 Last Infusion: 10/28/18 21:36 Dose: 0 mls/hr Documented by: [id number] Admin: 10/28/18 19:29 Dose: 999 mls/hr Documented by: [id number] Ondansetron HCl (Zofran) 4 mg IV NOW STA Stop: 10/28/18 19:05 Last Admin: 10/28/18 19:28 Dose: 4 mg Documented by: [id number] Ondansetron HCl (Zofran) 4 mg IV NOW STA Stop: 10/28/18 21:51 Last Admin: 10/28/18 22:01 Dose: 4 mg Documented by: [id number] Medical Decision Making Differential Diagnosis Differential diagnoses includes but is not limited to gastritis, peptic ulcer disease, GERD, gallbladder disease, pancreatitis, small bowel obstruction, acute coronary syndrome, pericarditis, ischemic bowel, irritable bowel disease, irritable bowel syndrome, appendicitis, diverticulitis, malignancy, hernia, urinary tract infection, torsion, perforation, trauma, infectious. Medical Records Attestation: I reviewed the patient's medical records. Home Medications Current Medication List: was personally reviewed by me Laboratory Data Attestation: I reviewed the patient's lab results. Result diagrams: 10/28/18 19:04 10/28/18 19:04 Lab Results 10/28/18 10/28/18 10/28/18 Range/Units 19:04 19:04 21:07 WBC 9.56 (4.8-10.8) K/uL RBC 4.73 (4.2-5.4) M/uL Hgb 12.6 (12.0-16.0) g/dL Hct 39.0 (37-47) % MCV 82.5 (80-100) fL MCH 26.6 (25-34) pg MCHC 32.3 (32-36) g/dL RDW Std Deviation 53.7 H (36.4-46.3) fL RDW Coeff of Mandeep 17.7 H (11.5-14.5) % Plt Count 239 (130-400) K/uL MPV 11.1 H (7.4-10.4) fL Immature Gran % (Auto) 0.3 % Neut % (Auto) 68.4 % Lymph % (Auto) 19.2 % [place] % (Auto) 10.0 % Eos % (Auto) 1.8 % Baso % (Auto) 0.3 % Immature Gran # (Auto) 0.03 H (0.00-0.02) K/uL Neut # (Auto) 6.53 H (1.4-6.5) K/uL Lymph # (Auto) 1.84 (1.2-3.4) K/uL [place] # (Auto) 0.96 H (0.11-0.59) K/uL Eos # (Auto) 0.17 (0-0.5) K/uL Baso # (Auto) 0.03 (0-0.2) K/uL Sodium 139 (136-145) mmol/L Potassium 3.3 L (3.5-5.1) mmol/L Chloride 108 H (98-107) mmol/L Carbon Dioxide 23 (21-32) mmol/L Anion Gap 8.0 (3-11) BUN 13 (7-18) mg/dl Creatinine 0.96 (0.6-1.2) mg/dl Est Cr Clr Drug Dosing Not Reportable Est GFR ( Amer) 69.4 Est GFR (Non-Af Amer) 59.9 BUN/Creatinine Ratio 13.8 (10-20) Glucose 102 H (70-99) mg/dl Calcium 9.9 (8.5-10.1) mg/dl Total Bilirubin 0.7 (0.2-1) mg/dl AST 19 (15-37) U/L ALT 23 (12-78) U/L Alkaline Phosphatase 130 H (45-117) U/L Total Protein 7.6 (6.4-8.2) gm/dl Albumin 2.9 L (3.4-5.0) gm/dl Globulin 4.7 H (2.5-4.0) gm/dl Albumin/Globulin Ratio 0.6 L (0.9-2) Lipase 91 (73-393) U/L Urine Color Yellow Urine Appearance Clear (Clear) Urine pH 6.0 (4.5-7.5) Ur Specific [place] 1.026 (1.000-1.030) Urine Protein Negative (Negative) Urine Glucose (UA) Negative (Negative) Urine Ketones Negative (Negative) Urine Blood Negative (Negative) Urine Nitrite Negative (Negative) Urine Bilirubin Negative (Negative) Urine Urobilinogen Negative (Negative) Ur Leukocyte Esterase 1+ H (Negative) Urine WBC (Auto) 5-10 H (0-5) /hpf Urine RBC (Auto) 0-4 (0-4) /hpf U Hyaline Cast (Auto) 1-5 (0-5) /lpf U Epithel Cells (Auto) 20-30 H (0-5) /lpf Urine Bacteria (Auto) Negative (Negative) Imaging Data Radiologist's Impression: Radiology results as stated below per my review and the radiologist's interpretation: ABDOMEN AND PELVIS CT WITH IV CONTRAST CT DOSE: 1484.06 mGy.cm HISTORY: Acute lower abdominal pain abd pain TECHNIQUE: Multiaxial CT images of the abdomen and pelvis were performed following the use of intravenous contrast. A dose lowering technique was utilized adhering to the principles of ALARA. COMPARISON STUDY: CT abdomen and pelvis 12/22/2017. FINDINGS: There is mild subsegmental bibasilar atelectasis. No pneumatosis or pneumo peritoneum. Inferior cardiac chambers are mildly enlarged. Hepatomegaly with hepatic steatosis. Liver otherwise appears unremarkable. No evidence of cirrhosis or focal hepatic mass lesion. Spleen appears unremarkable. Pancreas and adrenal glands are unremarkable. Bladder is within normal limits. No biliary ductal dilation. Bilateral renal cysts measure up to 4.0 cm on the right and 2.4 cm on the left. No renal or ureteral calculi or obstructive uropathy. Ureters and urinary bladder are unremarkable. Prior hysterectomy. No adnexal mass lesions. Aorta and IVC are unremarkable. No adenopathy. Small hiatal hernia. No small bowel obstruction. Extensive colonic diverticulosis. There is minimal pericolonic stranding noted about the mid sigmoid colon. No drainable fluid collection or evidence of perforation. Mild to moderate formed stool throughout the colon. Normal appendix. Diastases recti w ith small fat filled periumbilical hernia. Demineralized appearance of the bones. Degenerative changes of the spine, pelvis and hips. IMPRESSION: 1. Extensive colonic diverticulosis. Minimal pericolonic stranding about the mid sigmoid colon may reflect mild acute diverticulitis or a mild nonspecific colitis. No evidence of perforation or drainable fluid collection. 2. No bowel obstruction. 3. Suggested constipation. 4. Normal appendix. 5. Hepatomegaly with hepatic steatosis. 6. Additional findings as above. Electronically signed by: Otf Soria M.D. 10/28/2018 9:44 PM XR chest 1V portable HISTORY: 68 years-old Female cough acute cough with flulike symptoms COMPARISON: CT abdomen and pelvis of same day, chest radiograph 10/15/2018 TECHNIQUE: Portable AP view of the chest FINDINGS: Cardiac silhouette is mildly enlarged, unchanged. Stable positioning of the left subclavian [id number] catheter. Calcification of the thoracic aortic arch. Recorder device projects over the left chest. No pneumothorax, pleural effusion or overt pulmonary edema. Degenerative changes of the shoulders and spine. IMPRESSION: No acute process. The above report was generated using voice recognition software. It may contain grammatical, syntax or spelling errors. Electronically signed by: Otf Soria M.D. 10/28/2018 9:20 PM Blood Pressure Blood Pressure Findings: Elevated blood pressure Blood Pressure Disposition: Referred to patients primary care provider [facility] Narrative Patient is a 68-year-old female who presents here for nasal drainage associated with a dry cough and some vomiting and diarrhea. She notes that her belly feels distended but does not have a significant amount of pain. A febrile. no significant leukocytosis or anemia. BMP with mild hypokalemia. LFTs bilirubin was unremarkable. Lipase is normal. Labs were obtained and show was unremarkable. Patient vitals are stable with the exception that she was hypertensive and she does not measure blood pressure does run high. CT abdomen pelvis confirms possible mild diverticulitis. Due to the allergy to Levaquin patient was placed on Augmentin. She is given IV fluids and Zofran. She felt sniffily better. She discharged follow-up PCP as an outpatient. Discussed with Pt concerning signs and symptoms to watch out for. Pt was instructed to follow up with their PCP and discussed with the patient their option to return to the ED at anytime for persistent or worsening symptoms. The appropriate anticipatory guidance and out-patient management, including indications for return to the emergency department, were explained at length to the patient and understood. Impression & Plan Diverticulitis Discharge Plan Visit Data Chief Complaint: Illness Stated Complaint: VIRUS ED Provider: Sg Matos Discharge Problem: Diverticulitis Patient Disposition: Home - Self-Care Discharge Instructions Krames/Other Patient Handouts: Diverticulitis Dc Activity Restrictions/Additional Instructions: Please follow up with your primary care doctor with in the next 24 hours. Any worsening of your symptoms, please return to the ED immediately. This includes any fevers greater than 100.4, worsening pain, chest pain, shortness breath, persistent nausea, vomiting, unable to eat or drink, or any other concerning signs or symptoms from your standpoint. Please take antibiotics as prescribed. Please take Zofran as needed for nausea vomiting. Forms Stand Alone Forms: [facility], Important Visit Information Prescriptions Prescriptions: New amoxicillin-pot clavulanate [Augmentin] 875-125 mg tablet 1 tab PO Q12H Qty: 20 RF: 0 ondansetron HCl [Zofran] 4 mg tablet 4 mg PO Q8H 3 Days Qty: 9 RF: 0 No Action albuterol sulfate [Ventolin HFA] 90 mcg/actuation Hfa Aerosol Inhaler 2 puff INHALATION Q4H PRN (Reason: Shortness Of Breath) RF: 0 albuterol sulfate 2.5 mg /3 mL (0.083 %) Solution For Nebulization 2.5 mg inhalation Q6H PRN (Reason: Shortness Of Breath) RF: 0 cetirizine [Zyrtec] 10 mg Tablet 10 mg PO QAM RF: 0 fludrocortisone 0.1 mg Tablet 0.1 mg PO QAM RF: 0 fluticasone propion-salmeterol [Advair Diskus] 500-50 mcg/dose Blister With Device 1 inh INHALATION BID RF: 0 lansoprazole 30 mg Capsule,Delayed Release(Dr/Ec) 30 mg PO QAM RF: 0 levothyroxine 50 mcg Tablet 50 mcg PO QAM RF: 0 potassium chloride 20 mEq Tablet Extended Release 40 meq PO QDL RF: 0 ranitidine HCl 300 mg Tablet 300 mg PO HS RF: 0 simvastatin 20 mg Tablet 20 mg PO HS RF: 0 triamcinolone acetonide [Nasacort] 55 mcg Aerosol,[place] 2 spray Intranasal QAM RF: 0 triamterene-hydrochlorothiazid 37.5-25 mg Tablet 1 tab PO QAM RF: 0 polyethylene glycol 3350 [Miralax] 17 gram/dose Powder 8.5 g PO QDL RF: 0 immune globulin,gamma(IgG)ifas 10 % Solution 1 dose IV MONTHLY RF: 0 Probiotic Product 50,000,000 cell PO BID RF: 0 Ensure Liquid 1 - 2 can PO DAILY RF: 0 Referrals Referrals: Joselito Harrington MD [Primary Care Provider] - The scribe's documentation has been prepared under my direction and personally reviewed by me in its entirety. I confirm that the note above accurately reflects all work, treatment, procedures, and medical decision making performed by me.
[2018-10-28] MEDS ORDERED: METOCLOPRAMIDE HCL INJ 5 MG/ML 2 ML VIAL IV ONE (22:46)
[2018-10-28] MEDS ORDERED: ONDANSETRON HOME PACK 4MG OD TAB PO ONE (23:06)
--- NOTE | 2018-10-29 | Emergency Department Note ---
ED Visit Note This case was signed out to me at change of shift. The plan was for the patient to be discharged home with some oral Zofran. As the patient is having her port de-accessed, she became nauseated and vomited again. She now wanting to stay in the hospital for intractable vomiting. She has newly diagnosed diverticulitis and has a history of a low immune system. I discussed the case with the [facility] Hospitalist and they will evaluate for further management. .
--- NOTE | 2018-10-29 01:40 | History & Physical Report ---
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 Mild acute diverticulitis with intractable vomiting and abdominal bloating -Afebrile with nl WBC, mildly tachycardic 90s-100s and hypertensive -CT abdomen: extensive colonic diverticulosis, mid sigmoid mild acute diverticulitis vs. nonspecific colitis ; constipation, hepatomegaly with hepatic steatosis -Started on Zosyn -On IVFs -Continue to monitor Constipation -On miralax daily and colace BID HTN/HLD -Continue home triamterene-HCTZ and simvastatin Hx of orthostatic syncope -continue home florinef Hypothyroidism -Continue levothyroxine CVID -Receives monthly IVIG GERD -Continue home protonix, zantac -Maalox PRN Hx of asthma and allergies -Continue home albuterol and advair -Continue zyrtec Hypokalemia -K 3.3 -KCL 40meq ordered DVT prop: Lovenox Code: Full discussed with pt and Dispo: Med/surg telemetry (2) Common variable hypogammaglobulinemia: (3) Asthma: (4) Hyperlipidemia: (5) HTN (hypertension): (6) Orthostatic syncope: History of Present Illness Chief Complaint: Abdominal bloating and vomiting Primary Care Provider: Joselito Harrington MD 68yoF with hx of recurrent diverticulitis (ppx colectomy planned pending scheduling), asthma, CVID, HTN, HLD, orthostatic syncope presents with abdominal distention and vomiting. Pt reports not feeling well for 10 days. Initially thought allergies then developed weakness, dizziness and decreased appetite. A/w on and off vomiting (last episode tonight and had 4 episodes the night before, NBNB), diarrhea (last episode 5 days ago, no BM since, non-bloody, loose and brown). Denies abdominal pain now, had some cramps when had diarrhea. Feels bloated. Denies f/c, dizziness, [place], cp, sob, abdominal pain, dysuria, hematuria. PMhx: recurrent diverticulitis (ppx colectomy planned pending scheduling), asthma, CVID, HTN, HLD, orthostatic syncope, DVT/PE 2-3 years ago Surgical Hx: hysterectomy, TKA-R, rotator cuff surgery Social: social etoh use 3-4 drinks/year, denies smoking or recreational drug use Allergies Allergy/AdvReac Type Severity Reaction Status Date / Time erythromycin base Allergy Severe NAUSEA, Verified 10/28/18 20:09 DRY HEAVES levofloxacin Allergy Severe Anaphylaxis Verified 10/28/18 20:09 pollen extracts Allergy Intermediate SHORTNESS Verified 10/28/18 20:09 OF BREATH aspirin Allergy Unknown HIVES Verified 10/28/18 20:09 fluticasone AdvReac Unknown DIZZINESS Verified 10/28/18 20:09 Dust Allergy Intermediate SETS OFF Uncoded 10/28/18 20:09 ASHMA Home Medications Home Medications Medication Instructions Recorded Confirmed Type albuterol sulfate 2.5 mg INHALATION Q6H PRN 06/09/18 10/28/18 History albuterol sulfate [Ventolin HFA] 2 puff INHALATION Q4H PRN 06/09/18 10/28/18 History cetirizine [Zyrtec] 10 mg PO QAM 06/09/18 10/28/18 History fludrocortisone 0.1 mg PO QAM 06/09/18 10/28/18 History fluticasone propion-salmeterol 1 inh INHALATION BID 06/09/18 10/28/18 History [Advair Diskus] lansoprazole 30 mg PO QAM 06/09/18 10/28/18 History levothyroxine 50 mcg PO QAM 06/09/18 10/28/18 History potassium chloride 40 meq PO QDL 06/09/18 10/28/18 History ranitidine HCl 300 mg PO HS 06/09/18 10/28/18 History simvastatin 20 mg PO HS 06/09/18 10/28/18 History triamcinolone acetonide [Nasacort] 2 spray INTRANASAL QAM 06/09/18 10/28/18 History triamterene-hydrochlorothiazid 1 tab PO QAM 06/09/18 10/28/18 History Probiotic Product 50,000,000 cell PO BID 09/08/18 10/28/18 History immune globulin,gamma(IgG)ifas 1 dose IV MONTHLY 09/08/18 10/28/18 History polyethylene glycol 3350 [Miralax] 8.5 g PO QDL 09/08/18 10/28/18 History amoxicillin-pot clavulanate 1 tab PO Q12H #20 tab 10/28/18 Rx [Augmentin] food supplemt, lactose-reduced 1 - 2 can PO DAILY 10/28/18 10/28/18 History [Ensure] ondansetron HCl [Zofran] 4 mg PO Q8H 3 Days #9 tab 10/28/18 Rx Past Med/Surg History Medical History Common variable hypogammaglobulinemia Asthma (Chronic) Hx of deep venous thrombosis (Resolved) Hx pulmonary embolism (Resolved) Hyperlipidemia Diverticulitis Family History Other Family history non-contributory Social History Preferred Language: Mohawk Communication Ability: Effective 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 Beliefs That Will Affect Care: None Current Living Situation: Spouse Feels Safe at Home: Yes Safety Concerns: Feels Safe At This Time Smoking Status: Never smoker Hx Alcohol Use: Yes Alcohol type: wine Hx Substance Use: No Review of Systems Review of Systems: As per HPI Physical Exam Physical Exam: General: In NAD HEENT: dry mucous membranes CV: RRR, no m/r/g, cap refill < 2 sec PULM: CTAB equal breath sounds bilaterally ABDOMEN: +BS, non-distended, non-tender to palpation in all quadrants LE: no calf TTP, no LE edema Results & Data Vital Signs (Past 12 Hours) Vital Signs Temp Pulse Pulse Resp BP BP Pulse Ox 10/29/18 00:53 101 H 17 175/98 H 94 10/28/18 23:58 103 H 16 168/105 H 94 10/28/18 22:03 92 H 17 176/105 H 95 10/28/18 21:37 87 20 206/119 H 95 10/28/18 20:00 85 16 159/97 H 95 10/28/18 19:43 89 22 168/105 H 94 10/28/18 18:46 36.7 C 109 H 18 156/93 H 96 Laboratory Results Abnormal lab results 10/28/18 10/28/18 10/28/18 Range/Units 19:04 19:04 21:07 RDW Std Deviation 53.7 H (36.4-46.3) fL RDW Coeff of Mandeep 17.7 H (11.5-14.5) % MPV 11.1 H (7.4-10.4) fL Immature Gran # (Auto) 0.03 H (0.00-0.02) K/uL Neut # (Auto) 6.53 H (1.4-6.5) K/uL Pickett # (Auto) 0.96 H (0.11-0.59) K/uL Potassium 3.3 L (3.5-5.1) mmol/L Chloride 108 H (98-107) mmol/L Glucose 102 H (70-99) mg/dl Alkaline Phosphatase 130 H (45-117) U/L Albumin 2.9 L (3.4-5.0) gm/dl Globulin 4.7 H (2.5-4.0) gm/dl Albumin/Globulin Ratio 0.6 L (0.9-2) Ur Leukocyte Esterase 1+ H (Negative) Urine WBC (Auto) 5-10 H (0-5) /hpf U Epithel Cells (Auto) 20-30 H (0-5) /lpf Diagnostic Findings XR chest 1V portable HISTORY: 68 years-old Female cough acute cough with flulike symptoms COMPARISON: CT abdomen and pelvis of same day, chest radiograph 10/15/2018 TECHNIQUE: Portable AP view of the chest FINDINGS: Cardiac silhouette is mildly enlarged, unchanged. Stable positioning of the left subclavian Eqbwaw-u-Fyxz catheter. Calcification of the thoracic aortic arch. Recorder device projects over the left chest. No pneumothorax, pleural effusion or overt pulmonary edema. Degenerative changes of the shoulders and spine. IMPRESSION: No acute process. ABDOMEN AND PELVIS CT WITH IV CONTRAST CT DOSE: 1484.06 mGy.cm HISTORY: Acute lower abdominal pain abd pain TECHNIQUE: Multiaxial CT images of the abdomen and pelvis were performed following the use of intravenous contrast. A dose lowering technique was utilized adhering to the principles of ALARA. COMPARISON STUDY: CT abdomen and pelvis 12/22/2017. FINDINGS: There is mild subsegmental bibasilar atelectasis. No pneumatosis or pneumoperitoneum. Inferior cardiac chambers are mildly enlarged. Hepatomegaly with hepatic steatosis. Liver otherwise appears unremarkable. No evidence of cirrhosis or focal hepatic mass lesion. Spleen appears unremarkable. Pancreas and adrenal glands are unremarkable. Bladder is within normal limits. No biliary ductal dilation. Bilateral renal cysts measure up to 4.0 cm on the right and 2.4 cm on the left. No renal or ureteral calculi or obstructive uropathy. Ureters and urinary bladder are unremarkable. Prior hysterectomy. No adnexal mass lesions. Aorta and IVC are unremarkable. No adenopathy. Small hiatal hernia. No small bowel obstruction. Extensive colonic diverticulosis. There is minimal pericolonic stranding noted about the mid sigmoid colon. No drainable fluid collection or evidence of perforation. Mild to moderate formed stool throughout the colon. Normal appendix. Diastases recti with small fat filled periumbilical hernia. Demineralized appearance of the bones. Degenerative changes of the spine, pelvis and hips. IMPRESSION: 1. Extensive colonic diverticulosis. Minimal pericolonic stranding about the mid sigmoid colon may reflect mild acute diverticulitis or a mild nonspecific colitis. No evidence of perforation or drainable fluid collection. 2. No bowel obstruction. 3. Suggested constipation. 4. Normal appendix. 5. Hepatomegaly with hepatic steatosis. 6. Additional findings as above. Code Status & VTE Plan Code Status Full VTE Prophylaxis Plan VTE Prophylaxis will be ordered: Yes Supervising Physician Co-Signing Physician Notes Pt seen/examined in conjunction with resident MD Raz Mariee. Orders and plan of admission formulated with resident. 68 y/o F Hx of recurrent sigmoid diverticulitis, asthma, CVID, HTN, HLD, presents with abdominal distention and vomiting. The pt is attempting to schedule surgery at [facility] which has been repeatedly delayed due to infection and hospitalizations. Presents with weakness, nausea and vomiting for the second time in as many days. Also described diarrhea and denies fevers or rigors. A CT 10/28 demonstrated recurrence of mid sigmoid diverticulitis without abscess or perforation. She was intially DCd from the ER 10/28 but returned as she was not able to tolerate PO antibiotics. She has previously required home IV antibiotics as well. OE: AAO x 3 S1,2 R CTAB Minimally tender lower abdomen No CCE No deficits P: Placed on Zosyn for recurrence of diverticulitis. We should perhaps contact [facility] to determine if they want to expedite surgery. We will keep her on clears in the interim and continue her meds aside from diu retics which we will replace with a PRN IV antihypertensive. Resident Activity Tracking Resident Involvement: Resident Care Provided Care Provided: Adult Hospital Medicine
[2018-10-29] MEDS ORDERED: ALBUTEROL HFA 8 GM INHALER INH PRN (02:42)
[2018-10-29] MEDS ORDERED: ACETAMINOPHEN 325 MG TAB PO PRN (02:42)
[2018-10-29] MEDS ORDERED: PIPERACILL/TAZOBAC CONSULT ACTIVE PRN (02:42)
[2018-10-29] MEDS ORDERED: ALBUTEROL 0.083% NEBU SOLN 3 ML VIAL INH PRN (02:42)
[2018-10-29] MEDS ORDERED: ALUMINUM/MAGNESIUM SUSP 30 ML UDC PO PRN (02:42)
[2018-10-29] MEDS ORDERED: POTASSIUM CHLORIDE 20 MEQ TABCR PO STA (02:54)
[2018-10-29] MEDS ORDERED: HydrALAZINE 10 MG TAB PO STA (03:10)
[2018-10-29] MEDS: SODIUM CHLORIDE 0.9% 1000ML 1,000 ML IV SCH ×3 (03:22→19:22)
[2018-10-29] MEDS: PIPERACILLIN/TAZOBACTAM 3.375 GM in DEXTROSE 5% 100 ML IV SCH ×2 (03:22→10:34)
[2018-10-29] MEDS: POLYETHYLENE (MIRALAX) 17 GM PACK PO SCH ×2 (03:31→07:24)
[2018-10-29] MEDS: LEVOTHYROXINE SODIUM 50 MCG TABLET PO SCH (06:27)
[2018-10-29] MEDS: ENOXAPARIN INJ 40 MG/0.4 ML SYR SQ SCH (07:24)
[2018-10-29] MEDS: FLUTICASONE/SALMETEROL (ADVAIR) 500/50 INH 14 PUFF INH SCH ×2 (07:24→20:18)
[2018-10-29] MEDS: CETIRIZINE HCL 10 MG TABLET PO SCH (07:25)
[2018-10-29] MEDS: TRIAMTERENE/HCTZ 37.5/25MG TAB PO SCH (07:25)
[2018-10-29] MEDS: FLUDROCORTISONE ACETATE 0.1 MG TAB PO SCH (07:25)
[2018-10-29] MEDS: DOCUSATE SODIUM 100 MG CAP PO SCH ×2 (07:25→21:07)
[2018-10-29] MEDS: LACTOBACILLUS ACIDOPHILUS (FLORANEX) TAB PO SCH ×2 (07:25→21:07)
[2018-10-29] MEDS: ONDANSETRON INJ 2 MG/ML 2 ML VIAL IV PRN ×2 (08:46→15:26)
[2018-10-29] MEDS ORDERED: LANSOPRAZOLE 30 MG SOLTAB PO SCH (09:00)
[2018-10-29] MEDS ORDERED: FOOD SUPPLEMT LACTOSE REDUCED PO SCH (09:00)
[2018-10-29] MEDS: POTASSIUM CHLORIDE 20 MEQ TABCR PO SCH (11:12)
--- NOTE | 2018-10-29 14:15 | Hospitalist Progress Note ---
Date of Service October 29, 2018 Assessment & Plan (1) Diverticulitis: -Afebrile with nl WBC -CT abdomen: extensive colonic diverticulosis, mid sigmoid mild acute diverticulitis vs. nonspecific colitis ; constipation, hepatomegaly with hepatic steatosis -Continue Zosyn -On IVFs -Continue to monitor -On miralax daily and colace BID for constipation - patient has been seeing Dr. Powers at [facility] for possible upcoming surgery due to repeated diverticulitis. Will get in touch with his office. (2) Common variable hypogammaglobulinemia: -Receives monthly IVIG (3) Asthma: with allergies -Continue home albuterol and advair -Continue zyrtec (4) Hyperlipidemia: continue simvastatin (5) HTN (hypertension): -Continue home triamterene-HCTZ (6) Orthostatic syncope: -continue home florinef (7) GERD (gastroesophageal reflux disease): - will increase ppi to protonix bid given complaints of cough with reflux - continue nighttime ranitidine (8) DVT prophylaxis: DVT prop: Lovenox Code: Full discussed with pt and Dispo: Med/surg telemetry Subjective Patient reports feeling generally unwell but not specifically in pain. No appetite but no nauseas or vomiting. She does have a mild cough that is non productive Review of Systems Review of Systems: All systems reviewed & are unremarkable except as noted in HPI & below Physical Exam Physical Exam: General: no distress Eyes: normal inspection, PERLL Respiratory: chest non tender, clear to auscultation, normal breath sounds, no respiratory distress, no accessory muscle use Cardiac: regular rate and rhythm, no rub or gallop, no murmur, no edema, no jvd GI/: active bowel sounds, no abd pain or tenderness, soft, non distended Extremities: normal range of motion, normal strength, non tender Neuro/Psych: alert and oriented x 3, normal mood and affect Skin: normal color, dry Results & Data Vital Signs (Past 12 Hours) Vital Signs Temp Pulse Pulse Resp BP Pulse Ox 10/29/18 11:32 36.7 C 86 18 155/96 H 95 10/29/18 06:59 36.8 C 84 20 150/84 H 94 10/29/18 03:00 97 H 10/29/18 02:27 36.9 C 103 H 16 179/107 H 94
[2018-10-29] MEDS: PIPERACILLIN/TAZOBACTAM 4.5 GM in DEXTROSE 5% 100 ML IV SCH (20:17)
[2018-10-29] MEDS: PANTOprazole 40 MG TAB PO SCH (21:08)
[2018-10-29] MEDS: SIMVASTATIN 20 MG TAB PO SCH (21:08)
--- OUTSIDE RECORDS SUMMARY | 2018-10-29 22:45 | External Medical Summary | Continuity of Care Document ---
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) Benign paroxysmal positional vertigo (386.11) (H81.10) Seborrheic keratosis (702.19) (L82.1) Sebaceous cyst (706.2) (L72.3) Esophageal reflux (530.81) (K21.9) Hypothyroidism (244.9) (E03.9) Dyslipidemia (272.4) (E78.5) Diverticulosis (562.10) (K57.90) Asthma (493.90) (J45.909) 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) History of Acute diverticulitis (562.11) (K57.92) Status: Resolved Autonomic dysfunction (337.9) (G90.9) Allergic rhinitis (477.9) (J30.9) Allergies and Adverse Reactions Aspirin TABS (Allergy) Erythromycin Derivatives (Allergy) fluticasone (Allergy) Levaquin TABS (Allergy) Singulair TABS (Allergy) Reaction: Dizzi ness Medications Simvastatin 20 MG Oral Tablet; TAKE ONE TABLET BY MOUT H EVERY EVENING Roberto Harrington: 07-May-2018 Quantity: 90 Refills: 3 Levoxyl 50 MCG Oral Tablet; TAKE 1 TABLET BY MOUTH MARISA DAY Roberto Harrington Start: 22-Oct-2018 Quantity: 90 Refills: 3 Fluticasone-Salmeterol 500-50 MCG/DOSE I nhalation Aerosol Powder Breath Activated; INHALE 1 PUFF BY MOUTH TWO TIMES DAILY - RINSE MOUTH AFTERWARDS. LILY Loaiza Start: 29-Oct-2018 Quantity: 1 60 Inhaler Pack Refills: 11 Fish Oil CAPS; Take 1 capsule twice daily Refills: 0 Multiple Vitamins Oral Tablet; TAKE 1 TABLET DAILY. Refills: 0 Ocuvite TABS; TAKE 1 TABLET DAILY. Refills: 0 Ventolin HFA 108 (90 Base) MCG/ACT Inhal ation Aerosol Solution; INHALE 2 PUFFS BY MOUTH EVERY 4 HOURS NEEDED Roberto Harrington Start: 11-Apr-2012 Quantity: 1 8 GM Inhaler Refills: 11 Albuterol Sulfate (2.5 MG/3ML) 0.083% In halation Nebulization Solution; USE 1 UNIT DOSE IN NEBULIZER EVERY 6 HOURS NEEDED. Roberto Harrington Start: 23-Jul-2012 Quantity: 2 60 x 3 ML Plas Cont Refills: 11 Nasacort AERS; USE 2 SPRAYS IN EACH NOSTRIL ONCE DAILY Refills: 0 raNITIdine HCl - 300 MG Oral Tablet; TAKE 1 TABLET BY MOUTH AT BEDTIME Roberto Harrington Start: 31-Jul-2018 Quantity: 30 Refills: 11 Advair Diskus 500-50 MCG/DOSE Inhalation Aerosol Powder Breath Activated; INHALE 1 PUFF BY MOUTH TWO TIMES DAILY - RINSE MOUTH AFTERWARDS. LILY Loaiza Start: 24-Oct-2017 Quantity: 1 60 Inhaler Pack Refills: 11 Amoxicillin-Pot Clavulanate 875-125 MG O ral Tablet; TAKE 1 TABLET EVERY 12 HOURS DAILY. Roberto Harrington Start: 18-Apr-2018 Quantity: 20 Refills: 0 Ensure Oral Liquid Refills: 0 MiraLax Oral Packet Refills: 0 Zofran 4 MG Oral Tablet Start: 8 Refills: 0 Probiotic Oral Capsule Start: 01-Nov-2017 Refills: 0 INVanz 1 GM SOLR Start: 01-Nov-2017 Refills: 0 Potassium Chloride Kerri ER 20 MEQ Oral T ablet Extended Release; TAKE 2 TABLETS BY MOUTH EVERY DAY Roberto Harrington Start: 14-Jun-2018 Quantity: 60 Refills: 11 Klor-Con M20 20 MEQ Oral Tablet Extended Release; TAKE 2 TABLETS DAILY. Roberto Harrington Start: 24-Jul-2017 Quantity: 60 Refills: 6 Fludrocortisone Acetate 0.1 MG Oral Tablet; TAKE DI RECTED. Roberto Harrington Start: 10-Jul-2017 Refills: 0 ZyrTEC Allergy 10 MG Oral Tablet; TAKE 1 TABLET DAILY. Refills: 0 Lansoprazole 30 MG Oral Capsule Delayed Release; TAKE 1 CAPSULE BY MOUTH EVERY DAY Roberto Harrington Start: 29-Oct-2018 Quantity: 90 Refills: 3 Triamterene-HCTZ 37.5-25 MG Oral Tablet; TAKE 1 TABLET BY MOUTH EVERY DAY DIRECTED Roberto Harrington Start: 02-Jul-2018 Quantity: 30 Refills: 11 Systane Ultra SOLN Refills: 0 Gammagard 30 GM/300ML Injection Solution ; INFUSE 30GM (300ML) INTRAVENOUSLY ONCE A MONTH Roberto Harrington Start: 14-Jul-2016 Quantity: 1 300 ML Glass Cont Refills: 11 Procedures History of Vaginal Hysterectomy Status: Completed History of Shoulder Surgery Status: Comp leted History of Total Knee Arthroplasty Statu s: Completed History of Central IV Child Age 3 Or Older W/ Status: Completed 16-Nov-2016 0:00 Tunneling & Subcutan Port Immunizations Fluzone INJ On: 21-Mar-2011 Lot #: [id number], [employer] Fluzone INJ On: 15-Apr-2013 14:58 Lot #: [id number], [employer] Fluzone High-Dose Intramuscular Suspension On: 21-Apr-2014 1 0:22 Lot #: [id number], [employer] Fluzone High-Dose Intramuscular Suspension On: 07-Apr-2015 11 :15 Lot #: [id number], [employer]UR Prevnar 13 Intramuscular Suspension On: 20-May-2015 13:09 Lot #: [id number], [employer] Fluzone High-Dose Intramuscular Suspension On: 27-Apr-2016 1 0:46 Lot #: [id number], [employer] PA[employer]UR Pneumococcal polysaccharide vaccine, 23 valent On: 27-Apr-20 16 11:06 Lot #: [id number], [employer] Fluzone High-Dose Intramuscular Suspension On: 20-Apr-2017 1 1:27 Lot #: [id number], [employer] Fluzone High-Dose Intramuscular Suspension On: 08-May-2018 15 :22 Lot #: [id number], [employer] Family History Unknown Family Member Family history of Tuberculosis Status: Active Comments: Family History Family history of Hypertension (V17.49) Status: Active Comments: Family History Grandmother Family history of leukemia (V16.6) (Z80.6) Status: Active Family history of cerebrovascular accident (V17.1) (Z82.3) S tatus: Active Mother Family history of cerebrovascular accident (V17.1) (Z82.3) S tatus: Active Social History - Smoking Status Never smoker Plan of Treatment Planned Observations Planned Goals not documented Results X-Ray Chest 1 View Portable (Pending) Laboratory: [facility] [address] [facility] 15-Oct-2018 11:37 X-Ray Chest 1 VW Portable (CXR1P) [place], [place] [phone] XRay Report Patient: MARSHA BELLA Admit Date: 10/01 11/18 MR#: [id number] Address1: [address] [place] [address] Acct ID:[id number] Address2: Date: 1950 [facility] Zip: [place] [address] Age: 68 Location: ED Sex: F Room/Bed: Att Phy: Diagnosis: ILL ANTWON Comfort Phy: Joselito Harrington M D Service Date: Fam Phy: Interpreting Phy: Marie Simons Admit Phy: Ordering Phy: Paolo Khan DO cc: SINGLE VIEW CH EST CLINICAL HISTORY: Generalized weaknes s. FINDINGS: An AP, portable, upright ches t radiograph is compared to study dated 09/08/2018 and correlated with chest CT dated 018 The examination is degraded by portable technique and patient rotation. A left subclavian central venous infusion port is unchanged in position. The heartis enlar ged and there is atherosclerotic calcificati on of the thoracic aorta. There is pulmonary vascular congestion. Trace pleural effus ions are suspected. Bibasilar atelectasis is noted. No pneumothorax is seen. The skeletal structures are osteopenic. The bony thor ax is grossly intact. IMPRESSION: 1. Cardiomegaly with evidence of congestive failure. 2. Suspect trace pleural effusions. Electronically sig sherwin by: Taz Talavera M.D. 10/15/2018 11:3 9 AM Dictated: 10/15/18 1137 Transcribed: 10/15/[address] Head w/o Contrast (Pending) Laboratory: [facility] Diagnostic Imaging [address] [facility] 15-Oct-2018 12:28 CT HEAD WITHOUT CONTRAST [place], [place] [phone] CT Scan R eport Patient: MARSHA BELLA dmit Date: 10/15/18 MR#: [id number] Address1: [address] [place] [address] Acct ID:[id number] Address2: Ravinder e: 1950 [facility] [address] Age: 68 Location: ED Sex: F Room/Bed: Att Phy: Diagnosis: ILLNES Comfort Phy: Joselito Harrington MD Service Date: Fam Phy: Interpreting Phy: Taz Simons Admit Phy: Ordering Phy: Paolo Evans, DO c c: CT SCAN OF THE BRAIN WITHOUT IV CON TRAST CLINICAL HISTORY: Headache. COMPARISON STUDY: CT of the brain dated 11/29/2016. TECHNIQUE: Unenhanced ax ial CT scan of the brain is performed from the vertex to the skull base. A dose lowering techn ique was utilized adhering to the principles of ALARA. CT DOSE: 720.95 mGycm FINDINGS: Brain parenchyma: There a re age-related involutional changes noting minimal subcortical and periventricular microangiopathic change. There is no hemorrhage, mass effect, or evidence of acute territorial ischemia by CT criteria. Carreon-white matter differentiation is preserved. No extra-axial fluid collecti on is seen. Ventricles, sulci, cisterns: Prominent secondary to involutional dueñas ge. Intracranial vasculature: There is atherosclerotic calcification of the cav ernous carotid and vertebral arteries. Calvarium: Unremarkable. Sinuses an d mastoids: There is an air-fluid level in the left maxillary antrum. The remaining visualized paranasal sinuses are clear. The mastoid air cells are well pneumatized. Orbits: The bony orbits are grossly inta ct. IMPRESSION: 1. There is no hemorrhage, mass effect, or evidence of acute territorial ischemia by CT criteria. 2. An air-fluid level is noted in the left maxillary antrum. Correlate clinically f or evidence of sinusitis. Electronically signed by: Taz Talavera M.D. 10/15/2018 12:30 PM Dictated: 10/15/18 1228 Transcribed: 9 1228 X-Ray Chest 1 View Portable (Pending) Laboratory: [facility] Diagnostic [facility] [address] [facility] 28-Oct-2018 21:19 X-Ray Chest 1 VW Portable (CXR1P) [place], [place] [phone] XRay Report Patient: MARSHA BELLA Admit Date: 10/02 02/18 MR#: [id number] Address1: [address] [place] [address] Acct ID:[id number] Address2: Date: 1950 [facility] Zip: [place] [address] Age: 68 Location: ED Sex: F Room/Bed: Att Phy: Diagnosis: VIR US Comfort Phy: Joselito Harrington MD Service Date: Fam Phy: Joselito Harrington MD Interpreting Phy: [place] Admit Phy: Ordering Phy: Sg Matos DO cc: XR chest 1V portable HISTORY: 68 years-old Female cough acut e cough with flulike symptoms COMPARI SON: CT abdomen and pelvis of same day, chest radiograph 10/15/2018 TECHNIQUE: Por table AP view of the chest FINDINGS: C ardiac silhouette is mildly enlarged, unchanged . Stable positioning of the left subclavia n Rambzm-o-Cjic catheter. Calcification of the thoracic aortic arch. Recorder device pr ojects over theleft chest. No pneumothorax, ple ural effusion or overt pulmonary edema. Degenerative changes of the shoulders an d spine. IMPRESSION: No acute process . The above report was generated us [employer] voice recognition software. It may conta in grammatical, syntaxor spelling errors. Electronically signed by: Otf crowley M.D. 10/28/2018 9:20 PM Dictat ed: 10/28/182118 Transcribed: 2118 CT abd pelvis IV con only (Pending) Laboratory: [facility] Diagnostic Imaging [address] [facility] 28-Oct-2018 21:35 CT abd pelvis IV con only [place], [place] [phone] C T Scan Report Patient: MARSHA BELLA Admit Date: 10/28/18 MR#: [id number] Address1: [address] [place] [address] Acct ID:[id number] Address2: Ravinder e: 1950 [facility] Zip: [place] [address] Age: 68 Location: ED Sex: F Room/Bed: Att Phy: Diagnosis: VIRUS Comfort Phy: Joselito Harrington MD Service Date: Fam Phy: Joselito Harrington MD Interpreting Phy: [place]f [place] Admit Phy: Ordering Phy: Sg Matos DO cc: ABDOMEN AND PE LVIS CT WITH IV CONTRAST CT DOSE: 1484.0 6 mGy.cm HISTORY: Acute lower abdomin al pain abd pain TECHNIQUE: Multiaxia l CT images of the abdomen and pelvis were performed following the use of intraveno us contrast. A dose lowering technique was utilized adhering to the principles of A WILMER. COMPARISON STUDY: CT abdomen and pel vis 12/22/2017. FINDINGS: There is mi ld subsegmental bibasilar atelectasis. No pneumatosis or pneumoperitoneum. Inferio r cardiac chambers are mildly enlarged. Hepatomegaly with hepatic steatosis. Kat er otherwise appears unremarkable. No evide nce of cirrhosisor focal hepatic mass lesion. S pleen appears unremarkable. Pancreas and adren al glands are unremarkable. Bladder is with in normal limits. No biliary ductal dilatio n. Bilateral renal cysts measure up to 4.0 cm on the right and 2.4 cm on the left. No omar al or ureteral calculi or obstructive uropathy . Ureters and urinary bladder are unremark able. Prior hysterectomy. No adnexal mass lesi ons. Aorta and IVC are unremarkable. No adeno billy. Small hiatal hernia. No small bowel obstruction. Extensive colonic diverticu losis. There is minimalpericolonic stranding no noble about the mid sigmoid colon. No drainabl e fluid collection or evidence of perforat ion. Mild to moderate formed stool throughout the colon. Normal appendix. Diastases rectiw ith small fat filled periumbilical hernia. Demineralized appearance of the bones. Degenerative changes of the spine, pelvi s and hips. IMPRESSION: 1. Extensiv e colonic diverticulosis. Minimal pericolo dorothy stranding about the mid sigmoid colon ma y reflect mild acute diverticulitis or a m ild nonspecific colitis. No evidence of perforation or drainable fluid collectio n. 2. No bowel obstruction. 3. Suggested constipation. 4. Normal appendix. 5. Hepatomegaly with hepatic steatosis. 6 . Additional findings as above. Electronically signed by: Otf abel M.D. 10/28/2018 9:44 PM Dictat ed: 10/28/182134 Transcribed: 2134 Vital Signs 22-Oct-2018 12:00 Systolic 138 mm[Hg] Diastolic 76 mm[Hg] BMI Calculated 38.09 kg/m2 Weight 215 lb BSA Calculated 1.99 m2 Heart Rate 100 /min O2 Saturation 97 % Comments: Source: RA Respiration 18 /min Encounters Appointment; Joselito Harrington M.D. 22-Oct-2018 11:45 Encounter Diagnosis: Problem not documented Appointment; Joselito Harrington M.D. 24-Aug-2018 8:45 Encounter Diagnosis: Problem not documented Appointment; Simona Loaiza PA-C 28-May-2018 15:00 Encounter Diagnosis: Problem not documented Appointment; [facility], Nursing Station 08-May-2018 15:15 Encounter Diagnosis: Problem not documented Appointment; Joselito Harrington M.D. 12-Apr-2018 13:45 Encounter Diagnosis: Problem not documented Appointment; Simona Loaiza PA-C 06-Apr-2018 11:00 Encounter Diagnosis: Problem not documented Appointment; Simona Loaiza PA-C 15-Mar-2018 10:00 Encounter Diagnosis: Problem not documented Appointment; Pulmonary, Funct Testing 15-Mar-2018 9:30 Encounter Diagnosis: Problem not documented Appointment; Joselito Harrington M.D. 18-Jan-2018 13:30 Encounter Diagnosis: Problem not documented Appointment; Simona Loaiza PA-C 02-Jan-2018 10:00 Encounter Diagnosis: Problem not documented Appointment; Joselito Harrington M.D. 01-Dec-2017 11:00 Encounter Diagnosis: Problem not documented Appointment; Simona Loaiza PA-C 03-Nov-2017 11:00 Encounter Diagnosis: Problem not documented Appointment; Joselito Harrington M.D. 24-Oct-2017 10:00 Encounter Diagnosis: Problem not documented Appointment; Joselito Harrington M.D. 12-Oct-2017 14:30 Encounter Diagnosis: Problem not documented Appointment; Joselito Harrington M.D. 16-Aug-2017 13:45 Encounter Diagnosis: Problem not documented Appointment; Terry Hay M.D. 01-Aug-2017 9:30 Encounter Diagnosis: Problem not documented Appointment; Simona Loaiza PA-C 24-Jul-2017 14:00 Encounter Diagnosis: Problem not documented Appointment; Joselito Harrington M.D. 10-Jul-2017 14:00 Encounter Diagnosis: Problem not documented Appointment; Simona Loaiza PA-C 06-Jun-2017 10:00 Encounter Diagnosis: Problem not documented Appointment; Mika Yeung M.D. 30-May-2017 13:00 Encounter Diagnosis: Problem not documented Appointment; Mika Yeung M.D. 22-May-2017 10:30 Encounter Diagnosis: Problem not documented Appointment; Jacqueline Vasquez PA-C 19-May-2017 16:00 Encounter Diagnosis: Problem not documented Appointment; [facility], Nursing Station 20-Apr-2017 11:00 Encounter Diagnosis: Problem not documented Appointment; [facility], Nursing Station 13-Apr-2017 14:00 Encounter Diagnosis: Problem not documented Appointment; Billy Chapa M.D. 06-Apr-2017 9:00 Encounter Diagnosis: Problem not documented Appointment; Joselito Harrington M.D. 23-Mar-2017 14:30 Encounter Diagnosis: Problem not documented Appointment; Echo/Stress, Echo/Stress 27-Feb-2017 10:15 Encounter Diagnosis: Problem not documented Appointment; Srini Vázquez M.D. 20-Feb-2017 12:45 Encounter Diagnosis: Problem not documented Appointment; Simona Loaiza PA-C 13-Feb-2017 11:30 Encounter Diagnosis: Problem not documented Appointment; [facility], Nursing Station 07-Feb-2017 15:00 Encounter Diagnosis: Problem not documented Appointment; [facility], Nursing Station 06-Feb-2017 15:00 Encounter Diagnosis: Problem not documented Appointment; Simona Loaiza PA-C 31-Jan-2017 12:30 Encounter Diagnosis: Problem not documented Appointment; Joselito Harrington M.D. 12-Dec-2016 13:30 Encounter Diagnosis: Problem not documented Appointment; S[facility], Nursing Station 30-Nov-2016 11:30 Encounter Diagnosis: Problem not documented Appointment; Terry Hay M.D. 16-Nov-2016 7:00 Encounter Diagnosis: Problem not documented
[2018-10-30] MEDS: SODIUM CHLORIDE 0.9% 1000ML 1,000 ML IV SCH ×2 (02:37→10:49)
[2018-10-30] MEDS: PIPERACILLIN/TAZOBACTAM 4.5 GM in DEXTROSE 5% 100 ML IV SCH ×3 (03:54→20:18)
[2018-10-30] MEDS: LEVOTHYROXINE SODIUM 50 MCG TABLET PO SCH (05:38)
[2018-10-30 06:44] LABS: Hematocrit (blood only) 35.6 % (37-47); Hemoglobin 11.5 g/dL (12.0-16.0); Mean Corpuscular Hgb Conc 32.3 g/dL (32-36); Mean Corpuscular Volume 83.4 fL (80-100); Mean Platelet Volume 11.3 fL (7.4-10.4); Platelet Count 225 K/uL (130-400); RDW Coefficient of Variation 18.3 % (11.5-14.5); RDW Standard Deviation 56.1 fL (36.4-46.3); Red Blood Count 4.27 M/uL (4.2-5.4)
[2018-10-30 07:25] LABS: Calcium 9.3 mg/dl (8.5-10.1); Creatinine Clr Calc Pharmacy 53.1 ml/min; Est GFR (African American) 58.9; Est GFR (Non-African American) 50.8; Potassium 3.5 mmol/L (3.5-5.1)
[2018-10-30] MEDS: LACTOBACILLUS ACIDOPHILUS (FLORANEX) TAB PO SCH ×2 (07:40→20:19)
[2018-10-30] MEDS: PANTOprazole 40 MG TAB PO SCH ×2 (07:41→20:20)
[2018-10-30] MEDS: ENOXAPARIN INJ 40 MG/0.4 ML SYR SQ SCH (07:41)
[2018-10-30] MEDS: CETIRIZINE HCL 10 MG TABLET PO SCH (07:42)
[2018-10-30] MEDS: FLUTICASONE/SALMETEROL (ADVAIR) 500/50 INH 14 PUFF INH SCH ×2 (07:43→20:18)
[2018-10-30] MEDS: TRIAMTERENE/HCTZ 37.5/25MG TAB PO SCH (07:43)
[2018-10-30] MEDS: FLUDROCORTISONE ACETATE 0.1 MG TAB PO SCH (07:43)
[2018-10-30] MEDS: POLYETHYLENE (MIRALAX) 17 GM PACK PO SCH (07:44)
[2018-10-30] MEDS: DOCUSATE SODIUM 100 MG CAP PO SCH ×2 (07:44→20:19)
[2018-10-30] MEDS: POTASSIUM CHLORIDE 20 MEQ TABCR PO SCH (12:30)
[2018-10-30] MEDS ORDERED: SIMETHICONE 80 MG CHEW PO PRN (15:25)
--- NOTE | 2018-10-30 16:45 | Consultation Report ---
DATE OF CONSULTATION: 10/30/2018 REASON FOR EVALUATION: Recurrent diverticulitis. HISTORY OF PRESENT ILLNESS: The patient is a 68-year-old female, who I had seen in the past for recurrent episodes of sigmoid diverticulitis, in the last 12 months or so she has had 5 episodes. These have been complicated by the fact that SHE HAS MULTIPLE ANTIBIOTIC ALLERGIES and she has had to receive ertapenem as an outpatient for treatment. She did have a colonoscopy in 12/27/2017 where she had 3 small polyps removed and multiple sigmoid diverticula also in the transverse and ascending colon. She has been seen at [facility] and an elective sigmoid resection has been recommended back in April, but she keeps having other types of infections including bronchitis and tooth abscess that have chronically postponed her surgery. She is now back in the hospital with recurrent abdominal pain and a CT scan that shows some mild diverticulitis in the sigmoid area. The patient has been started on IV Zosyn. PAST MEDICAL HISTORY: Remarkable for asthma, common variable immunodeficiency, hypertension, hyperlipidemia. PAST SURGICAL HISTORY: She has had a hysterectomy, vaginal repair, right knee replacement and rotator cuff operation. HOME MEDICATIONS: Per list. ALLERGIES: ERYTHROMYCIN, LEVOFLOXACIN, ASPIRIN, FLUTICASONE AND DUST. FAMILY HISTORY: Noncontributory. SOCIAL HISTORY: The patient is , lives with her , does not smoke, drinks alcohol occasionally. REVIEW OF SYSTEMS: Positive for a tooth abscess in the right lower molar. PHYSICAL EXAMINATION: GENERAL: The patient is overweight, but in no acute distress. VITAL SIGNS: Blood pressure is 156/93, pulse 100. ABDOMEN: Protuberant. There is some mild distention. No mass or rebound appreciated. IMPRESSION AND PLAN: The patient has recurrent sigmoid diverticulitis. She has recurrent infections that have prevented her from getting her sigmoid resection at [facility] in a timely manner. She has been waiting now 6 months, but each time it has been delayed because of a bronchial infection or tooth infection. UNFORTUNATELY, SHE HAS MULTIPLE ANTIBIOTIC ALLERGIES OR INTOLERANCES. She is currently tolerating Zosyn, but when she is able to be discharged in the past, she has received IV ertapenem through the outpatient department, which I would guess that she will probably need again. I advised her that as soon as her infection is cleared and her tooth is taken care of that she call [facility] and get her sigmoid resected to prevent spending so much time in the hospital with recurrent attacks. We will follow the patient as needed during the hospital stay.
[2018-10-30] MEDS: HEPARIN 100 UNIT/ML 5ML FLUSH FLUSH PRN (18:33)
--- NOTE | 2018-10-30 18:58 | Hospitalist Progress Note ---
Date of Service October 30, 2018 Assessment & Plan (1) Diverticulitis: -Afebrile with nl WBC -CT abdomen: extensive colonic diverticulosis, mid sigmoid mild acute diverticulitis vs. nonspecific colitis ; constipation, hepatomegaly with hepatic steatosis -Continue Zosyn -On IVFs -Continue to monitor -On miralax daily and colace BID for constipation - patient has been seeing Dr. Powers at [facility] for possible upcoming surgery due to repeated diverticulitis. I did notify his office. They would like records at discharge. - Consulted GI - Patient will likely need IV abx for discharge as she is unable to tolerate many po medications. Last couple of diverticulitis flares she went home with IV ertapenem given through the [facility]. She does have a port. (2) Common variable hypogammaglobulinemia: -Receives monthly IVIG (3) Asthma: with allergies -Continue home albuterol and advair -Continue zyrtec (4) Hyperlipidemia: continue simvastatin (5) HTN (hypertension): -Continue home triamterene-HCTZ (6) Orthostatic syncope: -continue home florinef (7) GERD (gastroesophageal reflux disease): - will increase ppi to protonix bid given complaints of cough with reflux - continue nighttime ranitidine (8) DVT prophylaxis: DVT prop: Lovenox Code: Full Dispo: transfer to med surg off tele Subjective Ms. Cruz feels somewhat better today. Tolerating her diet. Review of Systems Review of Systems: All systems reviewed & are unremarkable except as noted in HPI & below Physical Exam Physical Exam: General: no distress Eyes: normal inspection, PERLL Respiratory: chest non tender, clear to auscultation, normal breath sounds, no respiratory distress, no accessory muscle use Cardiac: regular rate and rhythm, no rub or gallop, no murmur, no edema, no jvd GI/: active bowel sounds, mild abdominal tenderness, soft, non distended Extremities: normal range of motion, normal strength, non tender Neuro/Psych: alert and oriented x 3, normal mood and affect Skin: normal color, dry Results & Data Vital Signs (Past 12 Hours) Vital Signs Temp Pulse Pulse Resp BP Pulse Ox 10/30/18 15:00 84 10/30/18 14:57 36.7 C 87 18 171/94 H 95 10/30/18 11:57 36.7 C 92 H 20 142/82 H 94 10/30/18 07:03 36.8 C 83 18 154/91 H 94 10/30/18 07:00 93 H
[2018-10-30] MEDS: SIMVASTATIN 20 MG TAB PO SCH (20:20)
[2018-10-31] MEDS: HEPARIN 100 UNIT/ML 5ML FLUSH FLUSH PRN (00:26)
[2018-10-31] MEDS: PIPERACILLIN/TAZOBACTAM 4.5 GM in DEXTROSE 5% 100 ML IV SCH (04:16)
[2018-10-31] MEDS: LEVOTHYROXINE SODIUM 50 MCG TABLET PO SCH (05:54)
[2018-10-31] MEDS: LACTOBACILLUS ACIDOPHILUS (FLORANEX) TAB PO SCH ×2 (07:36→20:04)
[2018-10-31] MEDS: FLUTICASONE/SALMETEROL (ADVAIR) 500/50 INH 14 PUFF INH SCH ×2 (07:37→20:04)
[2018-10-31] MEDS: FLUDROCORTISONE ACETATE 0.1 MG TAB PO SCH (07:37)
[2018-10-31] MEDS: CETIRIZINE HCL 10 MG TABLET PO SCH (07:38)
[2018-10-31] MEDS: PANTOprazole 40 MG TAB PO SCH ×2 (07:38→20:04)
[2018-10-31] MEDS: ENOXAPARIN INJ 40 MG/0.4 ML SYR SQ SCH (07:38)
[2018-10-31] MEDS: TRIAMTERENE/HCTZ 37.5/25MG TAB PO SCH (07:39)
[2018-10-31] MEDS: DOCUSATE SODIUM 100 MG CAP PO SCH ×2 (07:42→20:04)
[2018-10-31] MEDS: POLYETHYLENE (MIRALAX) 17 GM PACK PO SCH (07:47)
[2018-10-31 08:08] LABS: Hematocrit (blood only) 34.6 % (37-47); Hemoglobin 11.2 g/dL (12.0-16.0); Mean Corpuscular Hgb Conc 32.4 g/dL (32-36); Mean Corpuscular Volume 82.8 fL (80-100); Mean Platelet Volume 11.7 fL (7.4-10.4); Platelet Count 226 K/uL (130-400); RDW Coefficient of Variation 18.2 % (11.5-14.5); RDW Standard Deviation 55.6 fL (36.4-46.3); Red Blood Count 4.18 M/uL (4.2-5.4); White Blood Count 7.41 K/uL (4.8-10.8)
[2018-10-31 08:36] LABS: BUN Creatinine Ratio 3.8 (10-20); Calcium 9.5 mg/dl (8.5-10.1); Creatinine Clr Calc Pharmacy 56.2 ml/min; Est GFR (Non-African American) 54.4; Potassium 3.4 mmol/L (3.5-5.1)
[2018-10-31] MEDS ORDERED: POTASSIUM CHLORIDE 20 MEQ TABCR PO STA (08:50)
[2018-10-31] MEDS: ERTAPENEM SODIUM 1,000 MG in SODIUM CHLORIDE 0.9% 50 ML IV SCH (09:46)
--- NOTE | 2018-10-31 13:04 | Hospitalist Progress Note ---
Date of Service October 31, 2018 Assessment & Plan (1) Diverticulitis: -Afebrile with nl WBC -CT abdomen: extensive colonic diverticulosis, mid sigmoid mild acute diverticulitis vs. nonspecific colitis ; constipation, hepatomegaly with hepatic steatosis -On miralax daily and colace BID for constipation - patient has been seeing Dr. Powers at [facility] for possible upcoming surgery due to repeated diverticulitis. I did notify his office. They would like records at discharge. - Consulted GI - Patient will likely need IV abx for discharge as she is unable to tolerate many po medications. Last couple of diverticulitis flares she went home with IV [facility]apenem [facility]. She does have a port. Will change her from Zosyn to Ertapenem today (2) Common variable hypogammaglobulinemia: -Receives monthly IVIG (3) Asthma: with allergies -Continue home albuterol and advair -Continue zyrtec (4) Hyperlipidemia: continue simvastatin (5) HTN (hypertension): -Continue home triamterene-HCTZ (6) Orthostatic syncope: -continue home florinef (7) GERD (gastroesophageal reflux disease): - increased ppi to protonix bid given complaints of cough with reflux - continue nighttime ranitidine (8) DVT prophylaxis: DVT prop: Lovenox Code: Full (9) Lower extremity edema: doppler left lower extremities Subjective Ms. Cruz is having some diarrhea and nausea. She is able to eat and drink. No abdominal pain. Review of Systems Review of Systems: All systems reviewed & are unremarkable except as noted in HPI & below Physical Exam Physical Exam: General: no distress Eyes: normal inspection, PERLL Respiratory: chest non tender, clear to auscultation, normal breath sounds, no respiratory distress, no accessory muscle use Cardiac: regular rate and rhythm, no rub or gallop, no murmur, LE edema L>R , no jvd GI/: active bowel sounds, no abd pain or tenderness, soft, non distended Extremities: normal range of motion, normal strength, non tender Neuro/Psych: alert and oriented x 3, normal mood and affect Skin: normal color, dry Results & Data Vital Signs (Past 12 Hours) Vital Signs Temp Pulse Resp BP Pulse Ox 10/31/18 07:22 36.8 C 79 18 159/90 H 95
[2018-10-31] MEDS: POTASSIUM CHLORIDE 20 MEQ TABCR PO SCH (13:38)
--- NOTE | 2018-10-31 14:42 | Ultrasound Report ---
LEFT LOWER EXTREMITY VENOUS DOPPLER HISTORY: Left leg edema COMPARISON STUDY: None. FINDINGS: There is normal compressibility, flow, and augmentation within the left lower extremity brandon p venous system. IMPRESSION: No DVT within the left lower extremity. Electronically signed by: Roberto Harris M.D. 10/31/2018 2:41 PM
--- NOTE | 2018-10-31 15:16 | Gastroenterology Progress Note ---
Date of Service October 31, 2018 Assessment & Plan (1) Diverticulitis: Seems improve on current abx. She is intolerant of lot of abx so plan is DC on IV Ertapenum n/v--secondary to above--improved diarrhea--could be secondary to above. If recurs would hold miralax and docusate. Subjective cc f/u n/v, diarrhea HPI Pt had some diarrhea last night. She is toleraing solid diet today. Denies abd pain. Review of Systems Respiratory: no dyspnea Cardiovascular: no chest pain Physical Exam Constitutional: WD/WN, vitals as above Respiratory: normal respiratory effort, lungs clear to auscultation Cardiovascular: RRR, no murmur, no edema Gastrointestinal (Abdomen): normal bowel sounds, soft, nontender, no hepatosplenomegaly Psychiatric: A+Ox3, euthymic affect Results & Data Vital Signs (Past 12 Hours) Vital Signs Temp Pulse Resp BP Pulse Ox 10/31/18 07:22 36.8 C 79 18 159/90 H 95
[2018-10-31] MEDS: SIMVASTATIN 20 MG TAB PO SCH (20:05)
[2018-11-01] MEDS: LEVOTHYROXINE SODIUM 50 MCG TABLET PO SCH (05:59)
[2018-11-01 07:37] LABS: Mean Corpuscular Hgb Conc 31.4 g/dL (32-36); Mean Corpuscular Volume 83.5 fL (80-100); Mean Platelet Volume 11.6 fL (7.4-10.4); Platelet Count 217 K/uL (130-400); RDW Coefficient of Variation 18.4 % (11.5-14.5); RDW Standard Deviation 56.4 fL (36.4-46.3); Red Blood Count 4.19 M/uL (4.2-5.4); White Blood Count 5.94 K/uL (4.8-10.8)
[2018-11-01 08:11] LABS: Calcium 9.8 mg/dl (8.5-10.1); Creatinine Clr Calc Pharmacy 71.3 ml/min; Est GFR (Non-African American) 72.5; Potassium 3.3 mmol/L (3.5-5.1)
[2018-11-01] MEDS: CETIRIZINE HCL 10 MG TABLET PO SCH (08:51)
[2018-11-01] MEDS: FLUDROCORTISONE ACETATE 0.1 MG TAB PO SCH (08:51)
[2018-11-01] MEDS ORDERED: POTASSIUM CHLORIDE 20 MEQ TABCR PO STA (08:51)
[2018-11-01] MEDS: TRIAMTERENE/HCTZ 37.5/25MG TAB PO SCH (08:52)
[2018-11-01] MEDS: LACTOBACILLUS ACIDOPHILUS (FLORANEX) TAB PO SCH (08:52)
[2018-11-01] MEDS: FLUTICASONE/SALMETEROL (ADVAIR) 500/50 INH 14 PUFF INH SCH (08:53)
[2018-11-01] MEDS: ENOXAPARIN INJ 40 MG/0.4 ML SYR SQ SCH (08:53)
[2018-11-01] MEDS: DOCUSATE SODIUM 100 MG CAP PO SCH (08:53)
[2018-11-01] MEDS: POLYETHYLENE (MIRALAX) 17 GM PACK PO SCH (08:54)
[2018-11-01] MEDS: ERTAPENEM SODIUM 1,000 MG in SODIUM CHLORIDE 0.9% 50 ML IV SCH (08:55)
[2018-11-01] MEDS: PANTOprazole 40 MG TAB PO SCH (09:46)
[2018-11-01] MEDS: HEPARIN 100 UNIT/ML 5ML FLUSH FLUSH PRN ×2 (09:47→12:44)
--- NOTE | 2018-11-01 10:46 | Discharge Summary ---
Date of Service November 01, 2018 Admission HPI Per Admitting Provider 68yoF with hx of recurrent diverticulitis (ppx colectomy planned pending scheduling), asthma, CVID, HTN, HLD, orthostatic syncope presents with abdominal distention and vomiting. Pt reports not feeling well for 10 days. Initially thought allergies then developed weakness, dizziness and decreased appetite. A/w on and off vomiting (last episode tonight and had 4 episodes the night before, NBNB), diarrhea (last episode 5 days ago, no BM since, non-bloody, loose and brown). Denies abdominal pain now, had some cramps when had diarrhea. Feels bloated. Denies f/c, dizziness, CRAWFORD, cp, sob, abdominal pain, dysuria, hematuria. PMhx: recurrent diverticulitis (ppx colectomy planned pending scheduling), asthma, CVID, HTN, HLD, orthostatic syncope, DVT/PE 2-3 years ago Surgical Hx: hysterectomy, TKA-R, rotator cuff surgery Social: social etoh use 3-4 drinks/year, denies smoking or recreational drug use Principal Diagnosis Diverticulitis Discharge Exam Constitutional WD/WN, vitals as above Respiratory normal respiratory effort, lungs clear to auscultation Cardiovascular Rate/Rhythm: regular rate and regular rhythm Extremities: + edema bilateral lower extremity edema left > right Gastrointestinal (Abdomen) Inspection/Auscultation: normal bowel sounds; abdomen not distended Percussion/Palpation: abdomen nontender Musculoskeletal Extremities: extremities normal to inspection Skin no rashes, warm and dry Neurologic moves all extremities and awake Psychiatric A+Ox3, euthymic affect Discharge Data Allergies Allergy/AdvReac Type Severity Reaction Status Date / Time erythromycin base Allergy Severe NAUSEA, Verified 10/28/18 20:09 DRY HEAVES levofloxacin Allergy Severe Anaphylaxis Verified 10/28/18 20:09 pollen extracts Allergy Intermediate SHORTNESS Verified 10/28/18 20:09 OF BREATH aspirin Allergy Unknown HIVES Verified 10/28/18 20:09 fluticasone AdvReac Unknown DIZZINESS Verified 10/28/18 20:09 Dust Allergy Intermediate SETS OFF Uncoded 10/28/18 20:09 ASHMA Consultations 10/29/18 02:03 ED Decision to Admit Stat 10/30/18 08:08 Consult Gastroenterology Routine Ordered Studies 10/28/18 19:04 CT abd pelvis IV con only Stat 10/31/18 11:13 US venous doppler LE LT Routine Hospital Course (1) Diverticulitis: -Afebrile with nl WBC -CT abdomen: extensive colonic diverticulosis, mid sigmoid mild acute diverticulitis vs. nonspecific colitis ; constipation, hepatomegaly with hepatic steatosis -On miralax daily and colace BID for constipation - patient has been seeing Dr. Powers at [facility] for possible upcoming surgery due to repeated diverticulitis. I did notify his office. Records will be sent on discharge - Consulted GI - Patient need IV abx for discharge as she is unable to tolerate many po medications. Last couple of diverticulitis flares she went home with IV [facility]. She does have a port. 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 Will return her to her normal home regimen for discharge as she already takes lansoprazole and 300 mg of ranitidine at home - continue nighttime ranitidine (8) Hypokalemia: chronic. Normally takes 40 mEq po potassium daily. Will increase to 60 until her stools and diet normalizes as her potassium has been running low. (9) Lower extremity edema: dopplered left lower extremity - no DVT Patient does have chronic lower extremity edema intermittently - she reports that she normally takes half a tablet of hctz/triamterene at home but when she has edema she increases to 1 tablet - denies sob or chest pain, lungs are clear to auscultation, no history of CHF. Last echo in 2015 had normal EF. - continue elevating feet and can wear compression stockings. (10) DVT prophylaxis: DVT prop: Lovenox Code: Full Total Time Total Time Spent Total Time Spent (In Minutes): greater than 30 minutes Discharge Plan Discharge Items Patient Disposition: Home - Self-Care Reason For Visit: INTRACTABLE VOMITING / DIVERTICULITIS Discharge Diagnosis: Diverticulitis Discharge Goals: Improve disease control Activity: Resume your previous activity Activity Comment: gradually as tolerated Non-emergency contact: Primary Care Provider and Manganese Breaker Call non-emergency contact if: you have any medication questions, your symptoms worsen, your pain is not controlled and you have a fever Follow-up/Referrals: Joselito Harrington MD [Primary Care Provider] - 11/06/18 10:00 am (Please, follow up at Dr. Harrington's office with her associate, Simona Loaiza PA-C, on MondayNovember 06 at 10:00 am. *If you need to change this appointment, call the office at [phone].) Addtl Provider Instructions: Please contact [facility] for follow up on your planned diverticulosis surgery. You will receive your ertapenem infusions daily from the [facility] for five days. Please increase your potassium to 60 mEq from 40 while you continue to have diarrhea. When your stools have normalized and you are eating normally you can return to 40 mEq daily. Continue elevating your feet and wearing compression stockings to help control the swelling in your lower extremities. Prescriptions: New potassium chloride [Klor-Con M20] 20 mEq Tablet,Er Particles/Crystals 60 meq PO QDL Qty: 21 RF: 0 ertapenem 1 gram recon soln 1 gm IV DAILY 5 Days Qty: 5 RF: 0 Continued albuterol sulfate [Ventolin HFA] 90 mcg/actuation Hfa Aerosol Inhaler 2 puff INHALATION Q4H PRN (Reason: Shortness Of Breath) RF: 0 albuterol sulfate 2.5 mg /3 mL (0.083 %) Solution For Nebulization 2.5 mg inhalation Q6H PRN (Reason: Shortness Of Breath) RF: 0 cetirizine [Zyrtec] 10 mg Tablet 10 mg PO QAM RF: 0 fludrocortisone 0.1 mg Tablet 0.1 mg PO QAM RF: 0 fluticasone propion-salmeterol [Advair Diskus] 500-50 mcg/dose Blister With Device 1 inh INHALATION BID RF: 0 levothyroxine 50 mcg Tablet 50 mcg PO QAM RF: 0 ranitidine HCl 300 mg Tablet 300 mg PO HS RF: 0 simvastatin 20 mg Tablet 20 mg PO HS RF: 0 triamcinolone acetonide [Nasacort] 55 mcg Aerosol,Volin 2 spray Intranasal QAM RF: 0 triamterene-hydrochlorothiazid 37.5-25 mg Tablet 1 tab PO QAM RF: 0 polyethylene glycol 3350 [Miralax] 17 gram/dose Powder 8.5 g PO QDL RF: 0 immune globulin,gamma(IgG)ifas 10 % Solution 1 dose IV MONTHLY RF: 0 Probiotic Product 50,000,000 cell PO BID RF: 0 Ensure Liquid 1 - 2 can PO DAILY RF: 0 Discontinued lansoprazole 30 mg Capsule,Delayed Release(Dr/Ec) 30 mg PO QAM RF: 0 potassium chloride 20 mEq Tablet Extended Release 40 meq PO QDL RF: 0 Stand-Alone Forms: [facility] Discharge Orders: Discharge Order (Routine); Ordered 11/01/18 Ordered By: Lyric Sheth Admission Data Admit Date/Time: 10/29/18 01:19 Attending Provider: Kole Armstrong Admit Provider: Kade Gee Primary Care Provider: Joselito Harrington Other Providers: Lyric Sheth ; Kade Gee ; Lincoln Gross Service: Telemetry Medical
[2018-11-01] MEDS: POTASSIUM CHLORIDE 20 MEQ TABCR PO SCH (11:30)
[2018-11-01] MEDS: ONDANSETRON INJ 2 MG/ML 2 ML VIAL IV PRN (12:39)
== END 2018-11-01 14:52 | disposition home or self-care (01) | DRG 392 ==
LOC: ED 18:41 → 2W 10-29 01:19 → SUATTDRO 10-29 01:19 → 2W 10-29 02:05

== ENCOUNTER 2019-04-18 02:13 | Inpatient (IN) ==
[2019-04-18] MEDS ORDERED: ONDANSETRON INJ 2 MG/ML 2 ML VIAL IV STA (02:59)
[2019-04-18] MEDS ORDERED: SODIUM CHLORIDE 0.9% 1000ML 1,000 ML IV ONE (02:59)
[2019-04-18] MEDS ORDERED: HYDROmorphone INJ 0.5 MG/0.5 ML SYR IV STA (02:59)
[2019-04-18 03:24] LABS: Basophils # (auto) 0.02 K/uL (0-0.2); Basophils % (auto) 0.2 %; Eosinophils # (auto) 0.33 K/uL (0-0.5); Eosinophils % (auto) 3.5 %; Hemoglobin 11.9 g/dL (12.0-16.0); Immature Granulocytes # (auto) 0.01 K/uL (0.00-0.02); Immature Granulocytes % (auto) 0.1 %; Lymphocytes # (auto) 1.67 K/uL (1.2-3.4); Lymphocytes % (auto) 17.8 %; Mean Corpuscular Hemoglobin 26.4 pg (25-34); Mean Corpuscular Hgb Conc 32.2 g/dL (32-36); Mean Corpuscular Volume 82.2 fL (80-100); Mean Platelet Volume 10.4 fL (7.4-10.4); Monocytes # (auto) 0.79 K/uL (0.11-0.59); Monocytes % (auto) 8.4 %; Neutrophils # (auto) 6.54 K/uL (1.4-6.5); Platelet Count 249 K/uL (130-400); RDW Coefficient of Variation 19.5 % (11.5-14.5); RDW Standard Deviation 59.1 fL (36.4-46.3); White Blood Count 9.36 K/uL (4.8-10.8)
[2019-04-18 03:41] LABS: Alanine Aminotransferase 23 U/L (12-78); Albumin Level 2.8 gm/dl (3.4-5.0); Aspartate Aminotransferase 18 U/L (15-37); BUN Creatinine Ratio 11.8 (10-20); Blood Urea Nitrogen 10 mg/dl (7-18); Calcium 9.3 mg/dl (8.5-10.1); Carbon Dioxide 25 mmol/L (21-32); Chloride 108 mmol/L (98-107); Creatinine Clr Calc Pharmacy 69.7 ml/min; Est GFR (African American) 82.8; Est GFR (Non-African American) 71.4; Glucose 132 mg/dl (70-99); Lipase 54 U/L (73-393); Potassium 3.5 mmol/L (3.5-5.1); Sodium 140 mmol/L (136-145)
[2019-04-18 03:46] LABS: Albumin Globulin Ratio 0.8 (0.9-2); Alkaline Phosphatase 120 U/L (45-117); Bilirubin,Total 0.5 mg/dl (0.2-1); Globulin 3.6 gm/dl (2.5-4.0); Total Protein 6.4 gm/dl (6.4-8.2); Troponin I < 0.015 ng/ml (0-0.045)
[2019-04-18] MEDS ORDERED: IOVERSOL 100ml IV PRN (04:04)
[2019-04-18 04:25] LABS: Appearance Urine Clear (Clear); Bacteria Urine Automated Negative (Negative); Bilirubin Urine Negative (Negative); Blood Urine Negative (Negative); Cast Urine Automated 0 /lpf (0-5); Color Urine Yellow; Glucose Urine UA Negative (Negative); Ketones Urine Negative (Negative); Leukocyte Esterase Urine Negative (Negative); Nitrite Urine Negative (Negative); Protein Urine Trace (Negative); RBC Urine Automated 0-4 /hpf (0-4); Urobilinogen Urine Negative (Negative)
[2019-04-18] MEDS ORDERED: ERTAPENEM SODIUM 10 ML IV STA (05:10)
[2019-04-18] MEDS ORDERED: TRAMADOL HCL 50 MG TABLET PO STA (05:49)
[2019-04-18] MEDS ORDERED: ONDANSETRON 4 MG OD TAB PO STA (05:49)
--- NOTE | 2019-04-18 06:28 | History & Physical Report ---
Date of Service April 18, 2019 Assessment & Plan (1) Diverticulitis: Recurrent diverticulitis- Most recent admission to [facility] any 10/29-11/01/2018, treated with IV per [facility]apenem [facility] at [facility]. Admit to telemetry. NPO except essential medications. Zofran 4 mg IV every 6 hours PRN. NSS + KCl 20 mEq 100 mils per hour. Dilaudid 0.5 mg IV every 3 hours as needed severe pain Continue ertapenem 1 g IV daily. Follow blood cultures. CT questions possible underlying sigmoid lesion. Consult her sod stripper Dr. Gross. Present on Admission?: Yes (2) Intractable abdominal pain: See above Present on Admission?: Yes (3) Nausea: See above Present on Admission?: Yes (4) Dyslipidemia: Hold simvastatin while n.p.o. Present on Admission?: Yes (5) GERD (gastroesophageal reflux disease): Famotidine 20 mg IV every 12 hours Present on Admission?: Yes (6) HTN (hypertension): Hold triamterene/HCTZ, Klor-Con 20 mEq p.o. twice daily. Lopressor 5 mg IV every 4 hours as needed systolic blood pressure above 160 Present on Admission?: Yes (7) Asthma: Continue DuoNeb every 4 hours as needed Present on Admission?: Yes (8) Common variable immunodeficiency: Receives IVIG monthly as outpatient. Continue probiotics. Continue fludrocortisone. Present on Admission?: Yes History of Present Illness Chief Complaint: The patient presents to the emergency department with recurrent left lower quadrant abdominal pain, nausea without vomiting Primary Care Provider: Joselito Harrington MD The patient is a 68-year-old female most recently admitted to [facility] from 10/29-11/01/2018 for diverticulitis, primarily treated with ertapenem IV at that time inpatient and then converted to outpatient due to her multiple drug sensitivities. There was an attempt by the ED to discharge patient to home and have patient on IV [facility]apenem at [facility], however, the patient reported more significant pain and nausea, and decision has been made to admit the patient. Allergies Allergy/AdvReac Type Severity Reaction Status Date / Time erythromycin base Allergy Severe NAUSEA, Verified 04/18/19 03:51 DRY HEAVES levofloxacin Allergy Severe Anaphylaxis Verified 04/18/19 03:51 pollen extracts Allergy Intermediate SHORTNESS Verified 04/18/19 03:51 OF BREATH aspirin Allergy Unknown HIVES Verified 04/18/19 03:51 montelukast [From Singulair] Allergy Unknown Verified 04/18/19 03:51 fluticasone AdvReac Unknown DIZZINESS Verified 04/18/19 03:51 Dust Allergy Intermediate SETS OFF Uncoded 04/18/19 03:51 ASHMA Home Medications Home Medications Medication Instructions Recorded Confirmed Type albuterol sulfate 2.5 mg INHALATION Q6H PRN 06/09/18 04/18/19 History cetirizine [Zyrtec] 10 mg PO QAM 06/09/18 04/18/19 History fludrocortisone 0.1 mg PO QAM 06/09/18 04/18/19 History fluticasone propion-salmeterol 1 inh INHALATION BID 06/09/18 04/18/19 History [Advair Diskus] levothyroxine 50 mcg PO QAM 06/09/18 04/18/19 History immune globulin,gamma(IgG)ifas 1 dose IV MONTHLY 09/08/18 04/18/19 History Ensure 1 - 2 can PO BID 10/28/18 04/18/19 History simvastatin 20 mg tablet 20 mg PO HS #90 tab 01/22/19 04/18/19 Rx triamcinolone acetonide 55 mcg 2 spray INTRANASAL QAM #16.9 ml 01/22/19 04/18/19 Rx nasal spray aerosol albuterol sulfate HFA 90 2 puff INHALATION Q4H PRN #1 02/22/19 04/18/19 Rx mcg/actuation aerosol inhaler inhaler monster (Zingiber officinalis) 0 mg PO DAILY 04/02/19 04/18/19 History ondansetron 4 mg PO Q6H PRN #12 tab 04/02/19 04/18/19 Rx potassium chloride [Klor-Con M20] 20 meq PO BID 04/02/19 04/18/19 History Lacto.acidophilus-Bif.animalis 1 cap PO DAILY 04/18/19 04/18/19 History [Probiotic] lansoprazole 30 mg PO DAILY 04/18/19 04/18/19 History ranitidine HCl 300 mg PO UD 04/18/19 04/18/19 History triamterene-hydrochlorothiazid 0.5 tab PO QAM 04/18/19 04/18/19 History Past Med/Surg History Medical History Hypothyroidism (Acute) Diverticulosis (Acute) GERD (gastroesophageal reflux disease) HTN (hypertension) Asthma (Chronic) Common variable immunodeficiency Diverticulitis IBS (irritable bowel syndrome) Hx of deep venous thrombosis (Resolved) Hx pulmonary embolism (Resolved) Surgical History H/O shoulder surgery History of total knee arthroplasty S/P vaginal hysterectomy Social History Preferred Language: Faroese Communication Ability: Effective Fitter Type Bar And Segment Required: No Beliefs That Will Affect Care: None marital status: Current Living Situation: Spouse Feels Safe at Home: Yes Smoking Status: Former smoker Hx Alcohol Use: Yes Alcohol type: wine Hx Substance Use: No Review of Systems Review of Systems: The patient denies chest pain, palpitations, shortness of breath, dyspnea on exertion, cough, lower extremity swelling, sore throat, fevers, chills, blood in urine or stool, dysuria, urinary frequency or urgency, lightheadedness, dizziness, headache, memory loss, loss of consciousness, rash, abnormal bruising or bleeding, imbalance, focal or generalized weakness, numbness or tingling in arms or legs, generalized arthralgias or myalgias, back or neck pain, or night sweats. The review of systems is otherwise negative other than for that already noted above, and at least 10 systems have been reviewed. Physical Exam Physical Exam: The patient is awake, alert and oriented 3, well developed and well nourished, normocephalic and atraumatic, lying in bed and in no acute distress. HEENT--PERRL, EOMI, mucous membranes and oropharynx dry. Neck--supple. No JVD. No bruits. Thyroid normal, trachea midline, no adenopathy. Heart--normal S1 and S2. No murmurs, rubs or gallops. Lungs--clear bilaterally, no respiratory distress, no accessory muscle use. Abdomen--normal bowel sounds and soft. Tender left lower quadrant. Nondistended. Morbidly obese Extremities--no cyanosis or clubbing. No edema. There are good distal pulses b/l. Dermatologic--normal skin turgor, normal color, no abnormal lymph nodes, no rash. Neurologic--cranial nerves II through XII grossly intact. Rheumatologic--normal range of motion. Psychiatric--normal affect. Results & Data Vital Signs (Past 12 Hours) Vital Signs Temp Pulse Pulse Resp BP BP Pulse Ox 04/18/19 06:00 88 16 180/110 H 95 04/18/19 04:31 88 16 163/92 H 92 04/18/19 04:10 93 H 15 185/104 H 95 04/18/19 04:09 95 H 18 185/104 H 95 04/18/19 03:01 89 18 171/92 H 94 04/18/19 02:31 85 14 173/96 H 93 04/18/19 02:20 98.2 F 98 H 18 188/85 H 94 04/18/19 02:19 89 23 188/85 H 95 04/18/19 02:15 95 Laboratory Results Laboratory Results WBC 9.36 K/uL (4.8-10.8) 04/18/19 03:10 RBC 4.50 M/uL (4.2-5.4) 04/18/19 03:10 Hgb 11.9 g/dL (12.0-16.0) L 04/18/19 03:10 Hct 37.0 % (37-47) 04/18/19 03:10 MCV 82.2 fL (80-100) 04/18/19 03:10 MCH 26.4 pg (25-34) 04/18/19 03:10 MCHC 32.2 g/dL (32-36) 04/18/19 03:10 RDW Std Deviation 59.1 fL (36.4-46.3) H 04/18/19 03:10 RDW Coeff of Mandeep 19.5 % (11.5-14.5) H 04/18/19 03:10 Plt Count 249 K/uL (130-400) 04/18/19 03:10 MPV 10.4 fL (7.4-10.4) 04/18/19 03:10 Immature Gran % (Auto) 0.1 % 04/18/19 03:10 Neut % (Auto) 70.0 % 04/18/19 03:10 Lymph % (Auto) 17.8 % 04/18/19 03:10 Throckmorton % (Auto) 8.4 % 04/18/19 03:10 Eos % (Auto) 3.5 % 04/18/19 03:10 Baso % (Auto) 0.2 % 04/18/19 03:10 Immature Gran # (Auto) 0.01 K/uL (0.00-0.02) 04/18/19 03:10 Neut # (Auto) 6.54 K/uL (1.4-6.5) H 04/18/19 03:10 Lymph # (Auto) 1.67 K/uL (1.2-3.4) 04/18/19 03:10 Throckmorton # (Auto) 0.79 K/uL (0.11-0.59) H 04/18/19 03:10 Eos # (Auto) 0.33 K/uL (0-0.5) 04/18/19 03:10 Baso # (Auto) 0.02 K/uL (0-0.2) 04/18/19 03:10 Sodium 140 mmol/L (136-145) 04/18/19 03:10 Potassium 3.5 mmol/L (3.5-5.1) 04/18/19 03:10 Chloride 108 mmol/L (98-107) H 04/18/19 03:10 Carbon Dioxide 25 mmol/L (21-32) 04/18/19 03:10 Anion Gap 7.0 (3-11) 04/18/19 03:10 BUN 10 mg/dl (7-18) 04/18/19 03:10 Creatinine 0.83 mg/dl (0.6-1.2) 04/18/19 03:10 Est Cr Clr Drug Dosing 69.7 ml/min 04/18/19 03:10 Est GFR ( Amer) 82.8 04/18/19 03:10 Est GFR (Non-Af Amer) 71.4 04/18/19 03:10 BUN/Creatinine Ratio 11.8 (10-20) 04/18/19 03:10 Glucose 132 mg/dl (70-99) H 04/18/19 03:10 Calcium 9.3 mg/dl (8.5-10.1) 04/18/19 03:10 Total Bilirubin 0.5 mg/dl (0.2-1) 04/18/19 03:10 AST 18 U/L (15-37) 04/18/19 03:10 ALT 23 U/L (12-78) 04/18/19 03:10 Alkaline Phosphatase 120 U/L (45-117) H 04/18/19 03:10 Troponin I < 0.015 ng/ml (0-0.045) 04/18/19 03:10 Total Protein 6.4 gm/dl (6.4-8.2) 04/18/19 03:10 Albumin 2.8 gm/dl (3.4-5.0) L 04/18/19 03:10 Globulin 3.6 gm/dl (2.5-4.0) 04/18/19 03:10 Albumin/Globulin Ratio 0.8 (0.9-2) L 04/18/19 03:10 Lipase 54 U/L (73-393) L 04/18/19 03:10 Urine Color Yellow 04/18/19 04:09 Urine Appearance Clear (Clear) 04/18/19 04:09 Urine pH 6.0 (4.5-7.5) 04/18/19 04:09 Ur Specific Venetie 1.020 (1.000-1.030) 04/18/19 04:09 Urine Protein Trace (Negative) H 04/18/19 04:09 Urine Glucose (UA) Negative (Negative) 04/18/19 04:09 Urine Ketones Negative (Negative) 04/18/19 04:09 Urine Blood Negative (Negative) 04/18/19 04:09 Urine Nitrite Negative (Negative) 04/18/19 04:09 Urine Bilirubin Negative (Negative) 04/18/19 04:09 Urine Urobilinogen Negative (Negative) 04/18/19 04:09 Ur Leukocyte Esterase Negative (Negative) 04/18/19 04:09 Urine WBC (Auto) 1-5 /hpf (0-5) 04/18/19 04:09 Urine RBC (Auto) 0-4 /hpf (0-4) 04/18/19 04:09 U Hyaline Cast (Auto) 0 /lpf (0-5) 04/18/19 04:09 U Epithel Cells (Auto) 10-20 /lpf (0-5) H 04/18/19 04:09 Urine Bacteria (Auto) Negative (Negative) 04/18/19 04:09 Diagnostic Findings [facility] Patient: MARSHA BELLA (Female) Age: 68 MR #: [id number] Status: ER Date: 04/18/19 04:07 Slices: 521 History: PAIN ALL OVER ABD, R/O SBO VS DIVERTICULITIS Priors: Joaquin: Don Hale @ [phone] Exams: CT ABDOMEN & PELVIS With Contrast Contrast: IV Amt: 93 ML OPTIRAY 320 Accession Numbers: [id number] Preliminary Findings Only See Final Report For Complete Findings CT ABDOMEN & PELVIS With Contrast: COMPARISON: CT dated 10/28/18 Diverticulosis with focal fat stranding of the sigmoid colon suggestive of acute diverticulitis. Cannot exclude underlying sigmoid colon lesion. No evidence of bowel obstruction. No free fluid or free air. No abscess or extraluminal air. Hepatomegaly with fatty infiltration. Gallbladder is distended. Bilateral renal cysts. Pancreas and spleen are unremarkable. Maryuri mesentery. Radiologist: Fabian Hyatt M.D. Study ready at 04:13 and initial results transmitted at 04:53 *This report constitutes a preliminary interpretation only. Non-acute findings felt to be unrelated to the clinical presentation may not be discussed in this report. The study will be interpreted and a final report will be generated by the local Radiologist the following shift. To reach the hospital radiology department call [phone]. If a discrepancy is found between the preliminary and final interpretations of this study, please notify us via our Client Portal at [email or web address] under QA Exams.You can also fax this report with a description of the discrepancy, or include the final report, to our daytime fax number [phone].If faxing, please indicate the severity of discrepancy using one of the following categories: [ ] 1 - Agree/Informational [ ] 2 - Unlikely to Affect Management [ ] 3 - Possible Eventual Change of Management [ ] 4 - Probable Immediate Change of Management For all other patient related information, please fax us at [phone] [id number] Code Status & VTE Plan Code Status Full code VTE Prophylaxis Plan VTE Prophylaxis will be ordered: Yes PG Care Time/CCT Total # of Minutes Spent Total Time Spent with Patient: Total time spent is greater than 50% in coordination of care (as documented) at patient's floor/unit and/or counseling patient:
--- NOTE | 2019-04-18 07:33 | Emergency Department Note ---
Entered by Miah Alexis acting as a scribe for History of Present Illness General Chief complaint: Abdominal Pain Stated complaint: NAUSEA/ABDOMINAL PAIN Time Seen by Provider: 04/18/19 02:16 Source: patient History of Present Illness Onset (ago): day(s) (last night) Location: abdomen Pain Consistency: + constant Maximum Pain Intensity: 8 Quality: + sharp and + other (cramping) Exacerbated By: + medication (MiraLAX) Associated symptoms: + other (Positive for fever, a decreased appetite, nausea, and abdominal bloating. Negative for vomiting.) The patient is a 68 year old female who presents to the emergency department with complaints of constant abdominal pain beginning yesterday. The patient states that she has been feeling sick for the last few days. She notes that she has had a fever and a decreased appetite. She reports that she became nauseous and developed abdominal bloating last night. The patient states that she is also having abdominal cramping and occasional sharp pains. She notes that she has a history of diabetes, IBS, diverticulitis, asthma, and common variable immune deficiency. She reports that her current symptoms feel similar to when she has diverticulitis, and she states that she may be constipated. She denies any vomiting. She notes that she took MiraLAX, but she reports that the miraLAX worsened her pain. The patient states that she also took Zofran at 2200. She denies any history of bowel obstruction and abdominal surgery. Home Medications Home Medications Medication Instructions Recorded Confirmed Type albuterol sulfate 2.5 mg INHALATION Q6H PRN 06/09/18 04/18/19 History cetirizine [Zyrtec] 10 mg PO QAM 06/09/18 04/18/19 History fludrocortisone 0.1 mg PO QAM 06/09/18 04/18/19 History fluticasone propion-salmeterol 1 inh INHALATION BID 06/09/18 04/18/19 History [Advair Diskus] levothyroxine 50 mcg PO QAM 06/09/18 04/18/19 History immune globulin,gamma(IgG)ifas 1 dose IV MONTHLY 09/08/18 04/18/19 History Ensure 1 - 2 can PO BID 10/28/18 04/18/19 History simvastatin 20 mg tablet 20 mg PO HS #90 tab 01/22/19 04/18/19 Rx triamcinolone acetonide 55 mcg 2 spray INTRANASAL QAM #16.9 ml 01/22/19 04/18/19 Rx nasal spray aerosol albuterol sulfate HFA 90 2 puff INHALATION Q4H PRN #1 02/22/19 04/18/19 Rx mcg/actuation aerosol inhaler inhaler monster (Zingiber officinalis) 0 mg PO DAILY 04/02/19 04/18/19 History ondansetron 4 mg PO Q6H PRN #12 tab 04/02/19 04/18/19 Rx potassium chloride [Klor-Con M20] 20 meq PO BID 04/02/19 04/18/19 History Lacto.acidophilus-Bif.animalis 1 cap PO DAILY 04/18/19 04/18/19 History [Probiotic] lansoprazole 30 mg PO DAILY 04/18/19 04/18/19 History ranitidine HCl 300 mg PO UD 04/18/19 04/18/19 History triamterene-hydrochlorothiazid 0.5 tab PO QAM 04/18/19 04/18/19 History Allergies Allergy/AdvReac Type Severity Reaction Status Date / Time erythromycin base Allergy Severe NAUSEA, Verified 04/18/19 03:51 DRY HEAVES levofloxacin Allergy Severe Anaphylaxis Verified 04/18/19 03:51 pollen extracts Allergy Intermediate SHORTNESS Verified 04/18/19 03:51 OF BREATH aspirin Allergy Unknown HIVES Verified 04/18/19 03:51 montelukast [From Singulair] Allergy Unknown Verified 04/18/19 03:51 fluticasone AdvReac Unknown DIZZINESS Verified 04/18/19 03:51 Dust Allergy Intermediate SETS OFF Uncoded 04/18/19 03:51 ASHMA Past Med/Surg History Medical History Hypothyroidism (Acute) Diverticulosis (Acute) GERD (gastroesophageal reflux disease) HTN (hypertension) Asthma (Chronic) Common variable immunodeficiency Diverticulitis IBS (irritable bowel syndrome) Hx of deep venous thrombosis (Resolved) Hx pulmonary embolism (Resolved) Surgical History H/O shoulder surgery History of total knee arthroplasty S/P vaginal hysterectomy Social History Preferred Language: French Communication Ability: Effective [employer] Required: No Beliefs That Will Affect Care: None marital status: Current Living Situation: Spouse Feels Safe at Home: Yes Smoking Status: Former smoker Hx Alcohol Use: Yes Alcohol type: wine Hx Substance Use: No Review of Systems See HPI for pertinent positives & negatives. and A total of 10 systems reviewed and were otherwise negative Physical Exam Vital Signs Vital Signs - 24 hr 04/18/19 06:00 Pulse Rate [Right Finger] 88 Respiratory Rate 16 Respiratory Effort / Characteristics Non-Labored Spontaneous Respiratory Depth Normal Respiratory Pattern Regular Blood Pressure [Right Arm] 180/110 H Blood Pressure Mean [Right Arm] 133 Blood Pressure Position [Right Arm] Lying Pulse Oximetry 95 Oxygen Delivery Method Room Air HEENT: Head - normocephalic and atraumatic Pupils are equal, round, and reactive to light. Extraocular eye muscles are intact, and sclera are anicteric. Nose - moist nasal mucosa without discharge. Mouth - dry buccal mucosa. Oropharynx is nonerythematous and there is no tonsillar exudate or edema noted. Neck: Supple; no JVD, nuchal rigidity, cervical lymphadenopathy, or auscultated bruits. Heart: Regular rate and rhythm. There is a normal S1 and S2 with no murmurs, clicks, or gallops appreciated. Lungs: Clear to auscultation bilaterally with no wheezes, rales, or rhonchi. Abdomen: Soft, with good bowel sounds. There are no palpable pulsatile masses or hepatosplenomegaly. There is no guarding, rigidity, or rebound noted. Pain to palpation of the epigastrium and LLQ, abdomen distended. Extremities: No evidence of cyanosis, clubbing, or edema. There are easily palpable peripheral pulses. Skin: warm and extremely dry with poor turgor and no rashes. Course 0236: The patient was evaluated in room A3. A complete history and physical examination were performed. Nursing notes and previous electronic medical records were reviewed. IV lock was established and labs were drawn as above. 0300: Sodium Chloride 1000mls @ 999 mls/hr IV 0304: Hydromorphone HCl 0.5mg IV, Ondansetron HCl 4mg IV 0456: I reevaluated and updated the patient. She states that she cannot take oral antibiotics and can only take IV antibiotics instead. I spoke to case management about the patient's case, and they will speak with Dr. Calvin. She is comfortable after medication. I did an extensive review of the patient's medical record and it seems that during her last course of diverticulitis, she was placed on IV ertapenem and received a total of 10 days of this. 0529: Ertapenem 10 mls @ 2 mls/min IV 0551: Upon reevaluation, the patient is stable. I discussed the findings and the treatment plan with the patient. She expresses agreement and understanding. I spoke with Dr. Calvin of the [facility] Hospitalist Service. The patient will be evaluated for further management. Consultations Consultation #1: I reviewed the patient's case with Dr. Calvin - Hospitalist, [facility]. He will evaluate the patient for further management. Time: 05:51 Administered Medications Heparin Sodium (Porcine) (Heparin Sodium (Porcine)) 5,000 units SQ Q8 KAREN Stop: 05/18/19 13:59 Last Admin: 04/18/19 21:25 Dose: 5,000 units Documented by: [id number] Cosigned by: [id number] Admin: 04/18/19 13:22 Dose: 5,000 units Documented by: [id number] Cosigned by: [id number] Heparin Sodium (Porcine) (Heparin Sod 100 Unit/Ml Flush) 5 ml FLUSH PRN PRN PRN Reason: Flush Stop: 05/18/19 07:59 Last Admin: 04/18/19 11:00 Dose: 5 ml Documented by: [id number] Admin: 04/18/19 09:44 Dose: 5 ml Documented by: [id number] Hydromorphone HCl (Dilaudid) 0.5 mg IV Q3H PRN PRN Reason: Severe Pain Stop: 05/02/19 07:34 Last Admin: 04/19/19 00:30 Dose: 0.5 mg Documented by: [id number] Admin: 04/18/19 21:27 Dose: 0.5 mg Documented by: [id number] Admin: 04/18/19 16:30 Dose: 0.5 mg Documented by: [id number] Admin: 04/18/19 11:00 Dose: 0.5 mg Documented by: [id number] Famotidine 20 mg/ Syringe 5 mls @ 2.5 mls/min IV Q12H KAREN Stop: 05/18/19 07:59 Last Admin: 04/18/19 21:24 Dose: 2.5 mls/min Documented by: [id number] Admin: 04/18/19 09:39 Dose: 2.5 mls/min Documented by: [id number] Lactated Ringer's (Lr) 1,000 mls @ 125 mls/hr IV .Q8H KAREN Stop: 05/18/19 14:14 Last Admin: 04/18/19 22:35 Dose: 125 mls/hr Documented by: [id number] Infusion: 04/18/19 22:25 Dose: 125 mls/hr Documented by: [id number] Admin: 04/18/19 14:25 Dose: 125 mls/hr Documented by: [id number] Ioversol (Optiray 320 100ml) 100 ml IV ONCE PRN PRN Reason: Interaction Checking Stop: 04/22/19 04:03 Last Admin: 04/18/19 04:04 Dose: 93 ml Documented by: [id number] Ondansetron HCl (Zofran) 4 mg IV Q6H PRN PRN Reason: Nausea Stop: 05/18/19 07:34 Last Admin: 04/19/19 00:28 Dose: 4 mg Documented by: [id number] Admin: 04/18/19 16:30 Dose: 4 mg Documented by: [id number] Fluticasone/Salmeterol (Advair Diskus 500/50) 1 puffs INH BID [facility] Stop: 05/18/19 08:59 Last Admin: 04/18/19 21:25 Dose: 1 puffs Documented by: [id number] Admin: 04/18/19 09:39 Dose: 1 puffs Documented by: [id number] Triamcinolone Acetonide (Nasacort) 2 sprays YARIEL QAM KAREN Stop: 05/18/19 08:59 Last Admin: 04/18/19 09:41 Dose: 2 sprays Documented by: [id number] Discontinued Medications Hydromorphone HCl (Dilaudid) 0.5 mg IV NOW STA Stop: 04/18/19 03:00 Last Admin: 04/18/19 03:04 Dose: 0.5 mg Documented by: [id number] Sodium Chloride (Nss 1000ml) 1,000 mls @ 999 mls/hr IV .Q1H1M ONE Stop: 04/18/19 03:59 Last Infusion: 04/18/19 04:11 Dose: 0 mls/hr Documented by: [id number] Admin: 04/18/19 03:00 Dose: 999 mls/hr Documented by: [id number] Ertapenem (Invanz) 10 mls @ 2 mls/min IV NOW STA Stop: 04/18/19 05:14 Last Admin: 04/18/19 05:29 Dose: 2 mls/min Documented by: [id number] Lactated Ringer's (Lr) 1,000 mls @ 999 mls/hr IV .Q1H1M ONE Stop: 04/18/19 14:11 Last Infusion: 04/18/19 14:30 Dose: 0 mls/hr Documented by: [id number] Admin: 04/18/19 13:22 Dose: 999 mls/hr Documented by: [id number] Ondansetron HCl (Zofran) 4 mg IV NOW STA Stop: 04/18/19 03:00 Last Admin: 04/18/19 03:04 Dose: 4 mg Documented by: [id number] Ondansetron HCl (Zofran Odt) 8 mg PO NOW STA Stop: 04/18/19 05:50 Last Admin: 04/18/19 06:21 Dose: 8 mg Documented by: [id number] Tramadol HCl (Ultram) 50 mg PO NOW STA Stop: 04/18/19 05:50 Last Admin: 04/18/19 06:21 Dose: 50 mg Documented by: [id number] Medical Decision Making Differential Diagnosis Differential diagnoses include: SBO, diverticulitis, constipation, and dehydration. Medical Records Attestation: I reviewed the patient's medical records. Home Medications Current Medication List: was personally reviewed by me Laboratory Data Attestation: I reviewed the patient's lab results. Result diagrams: 04/18/19 03:10 04/18/19 03:10 Lab Results 04/18/19 04/18/19 04/18/19 Range/Units 03:10 03:10 04:09 WBC 9.36 (4.8-10.8) K/uL RBC 4.50 (4.2-5.4) M/uL Hgb 11.9 L (12.0-16.0) g/dL Hct 37.0 (37-47) % MCV 82.2 (80-100) fL MCH 26.4 (25-34) pg MCHC 32.2 (32-36) g/dL RDW Std Deviation 59.1 H (36.4-46.3) fL RDW Coeff of Mandeep 19.5 H (11.5-14.5) % Plt Count 249 (130-400) K/uL MPV 10.4 (7.4-10.4) fL Immature Gran % (Auto) 0.1 % Neut % (Auto) 70.0 % Lymph % (Auto) 17.8 % [place] % (Auto) 8.4 % Eos % (Auto) 3.5 % Baso % (Auto) 0.2 % Immature Gran # (Auto) 0.01 (0.00-0.02) K/uL Neut # (Auto) 6.54 H (1.4-6.5) K/uL Lymph # (Auto) 1.67 (1.2-3.4) K/uL [place] # (Auto) 0.79 H (0.11-0.59) K/uL Eos # (Auto) 0.33 (0-0.5) K/uL Baso # (Auto) 0.02 (0-0.2) K/uL Sodium 140 (136-145) mmol/L Potassium 3.5 (3.5-5.1) mmol/L Chloride 108 H (98-107) mmol/L Carbon Dioxide 25 (21-32) mmol/L Anion Gap 7.0 (3-11) BUN 10 (7-18) mg/dl Creatinine 0.83 (0.6-1.2) mg/dl Est Cr Clr Drug Dosing 69.7 ml/min Est GFR ( Amer) 82.8 Est GFR (Non-Af Amer) 71.4 BUN/Creatinine Ratio 11.8 (10-20) Glucose 132 H (70-99) mg/dl Calcium 9.3 (8.5-10.1) mg/dl Total Bilirubin 0.5 (0.2-1) mg/dl AST 18 (15-37) U/L ALT 23 (12-78) U/L Alkaline Phosphatase 120 H (45-117) U/L Troponin I < 0.015 (0-0.045) ng/ml Total Protein 6.4 (6.4-8.2) gm/dl Albumin 2.8 L (3.4-5.0) gm/dl Globulin 3.6 (2.5-4.0) gm/dl Albumin/Globulin Ratio 0.8 L (0.9-2) Lipase 54 L (73-393) U/L Urine Color Yellow Urine Appearance Clear (Clear) Urine pH 6.0 (4.5-7.5) Ur Specific [place] 1.020 (1.000-1.030) Urine Protein Trace H (Negative) Urine Glucose (UA) Negative (Negative) Urine Ketones Negative (Negative) Urine Blood Negative (Negative) Urine Nitrite Negative (Negative) Urine Bilirubin Negative (Negative) Urine Urobilinogen Negative (Negative) Ur Leukocyte Esterase Negative (Negative) Urine WBC (Auto) 1-5 (0-5) /hpf Urine RBC (Auto) 0-4 (0-4) /hpf U Hyaline Cast (Auto) 0 (0-5) /lpf U Epithel Cells (Auto) 10-20 H (0-5) /lpf Urine Bacteria (Auto) Negative (Negative) Imaging Data Radiologist's Impression: Radiology results as stated below per my review and the radiologist's interpretation: CT ABDOMEN & PELVIS With Contrast: COMPARISON: Ct dated 10/28/18. Diverticulosis with focal fat stranding of the sigmoid colon suggestive of acute diverticulitis. Cannot exclude underlying sigmoid colon lesion. No evidence of bowel obstruction. No free fluid or free air. No abscess or extraluminal air. Hepatomegaly with fatty infiltration. Gallbladder is distended. Bilateral renal cysts. Pancreas and spleen are unremarkable. Maryuri mesentery. Radiologist: Fabian Hyatt MD. ECG Data Attestation: I personally reviewed and interpreted this ECG as follows: Indication: abdominal pain Rate (beats per minute): 79 Rhythm: normal sinus Findings: no PAC and no PVC Additional Comments: No ischemia. Blood Pressure Blood Pressure Findings: Elevated blood pressure Blood Pressure Disposition: further management by hospitalist [facility] Narrative The patient is a 68 year old female who presents to the emergency department with complaints of constant abdominal pain beginning yesterday. The patient has an extensive history of diverticulitis and believes this may be occurring again. The patient required IV meds for nausea and for pain. Initially, the patient wanted to be discharged home but explained that she is unable to take any oral antibiotics. She previously was treated with IV antibiotics at the [facility] for a bout of diverticulitis. I discussed the case with the [facility] Hospitalist and they evaluated the patient. The patient continued to require meds for nausea and pain and it was felt she should be admitted into the hospital. Impression & Plan Diverticulitis, Intractable abdominal pain, Nausea Discharge Plan Visit Data *Final* Discharge Date/Time: 04/18/19 06:55 Chief Complaint: Abdominal Pain Stated Complaint: NAUSEA/ABDOMINAL PAIN ED Provider: Patti Hughes Discharge Problem: Diverticulitis, Intractable abdominal pain, Nausea Patient Disposition: Admitted As Inpatient Discharge Instructions Interventions: ED Discharge Assessment Last Done: 04/18/19 06:55 The scribe's documentation has been prepared under my direction and personally reviewed by me in its entirety. I confirm that the note above accurately reflects all work, treatment, procedures, and medical decision making performed by me.
[2019-04-18] MEDS ORDERED: ALBUTEROL 0.083% NEBU SOLN 3 ML VIAL INH PRN (07:35)
--- NOTE | 2019-04-18 07:36 | CT Scan Report ---
CT abd pelvis IV con only CLINICAL HISTORY: 68 years-old Female presenting with generalized abdominal pain, concern for obstruc tion or diverticulitis. TECHNIQUE: Multidetector CT of the abdomen and pelvis was performed after the administration of intra venous contrast. IV contrast: 93 mL of Optiray 320. One or more dose lowering techniques were used co nsistent with the principles of ALARA (as low as reasonably achievable), including automatic exposure control, mA or kV adjustment to individual patient size, and/or use of iterative reconstruction. COMPARISON: 10/28/2018. CT DOSE (mGy.cm): The estimated cumulative dose is 1279.88 mGy.cm. FINDINGS: [place] topogram: Unremarkable. Lung bases: Normal heart size. No pericardial or pleural effusion. Minimal subpleural reticular groun dglass opacities may be postinfectious or postinflammatory. Additionally, there is minimal dependent atelectasis. Liver: Normal morphology. Density consistent with hepatic steatosis. No focal lesion. Patent hepatic vasculature. Biliary: No intrahepatic or extrahepatic biliary ductal dilatation. Normal gallbladder. Pancreas: Moderate parenchymal atrophy. Spleen: Normal. Adrenal glands: Normal. Kidneys and ureters: Multiple cysts bilaterally, which are simple appearing. No nephrolithiasis or hy dronephrosis. Ureters nondistended. Bladder: Normal. Pelvic organs: Uterus surgically absent. No adnexal masses. Normal ovaries. Bowel: Rectal descent. Syndicate pelvic floor incompetence. Diverticulosis of the distal descending c olon and proximal to mid sigmoid colon. Significant wall thickening and mild pericolonic inflammatory change in the proximal to mid sigmoid colon. Superior in size slightly worsened from prior. Addition al scattered colonic diverticula elsewhere. The appendix is normal. No bowel obstruction. Peritoneal cavity: No extraluminal or free intraperitoneal gas. No free fluid. No loculated fluid col lection. No mesenteric or portal venous gas. Lymph nodes: No enlarged lymph nodes in the abdomen or pelvis. Vasculature: Aorta and IVC patent and normal in caliber. Abdominal wall: Diastasis of the rectus abdominis. Musculoskeletal: Degenerative changes of the spine. IMPRESSION: 1. Acute uncomplicated diverticulitis of the sigmoid colon. This may be on a background of chronic d iverticular disease/circular muscle hyperplasia. Follow-up colonoscopy after treatment is highly reji mmended to exclude an underlying neoplasm. 2. Hepatic steatosis. The report will be called/faxed according to standard departmental protocol. Electronically signed by: Walker Walter M.D. 04/18/2019 7:34 AM
[2019-04-18] MEDS ORDERED: METOPROLOL TARTRATE 1 MG/ML VIAL IV PRN (08:00)
[2019-04-18] MEDS: FLUTICASONE/SALMETEROL (ADVAIR) 500/50 INH 14 PUFF INH SCH ×2 (09:39→21:25)
[2019-04-18] MEDS: FAMOTIDINE 20 MG in SYRINGE 3 ML IV SCH ×2 (09:39→21:24)
[2019-04-18] MEDS: TRIAMCINOLONE ACET NASAL SPRAY 10.8ML BTL NAE SCH (09:41)
[2019-04-18] MEDS: HEPARIN 100 UNIT/ML 5ML FLUSH FLUSH PRN ×2 (09:44→11:00)
[2019-04-18] MEDS: HYDROmorphone INJ 0.5 MG/0.5 ML SYR IV PRN ×3 (11:00→21:27)
[2019-04-18] MEDS ORDERED: LACTATED RINGER'S 1,000 ML IV ONE (13:11)
[2019-04-18] MEDS: HEPARIN SOD 5,000 UNIT/0.5 ML VIAL SQ SCH ×2 (13:22→21:25)
[2019-04-18] MEDS: LACTATED RINGER'S 1,000 ML IV SCH ×2 (14:25→22:35)
[2019-04-18] MEDS: ONDANSETRON INJ 2 MG/ML 2 ML VIAL IV PRN (16:30)
--- NOTE | 2019-04-18 18:40 | Progress Note ---
DATE: 04/18/2019 REASON FOR EVALUATION: Recurrent diverticulitis. HISTORY OF PRESENT ILLNESS: The patient is a 68-year-old who has been hospitalized multiple times with recurrent sigmoid diverticulitis. She has got diverticulosis throughout the colon, but most prominently in the sigmoid area. Her last colonoscopy was 12/27/2017 and she had some small polyps removed, but there were no signs of cancer or any other significant pathology. She has multiple allergies and when she get diverticulitis, has to be treated with ertapenem, which she is usually able to finish as an outpatient through an [id number]-[id number]. She has been referred to [facility] for surgery and sigmoid resection, but they have deferred multiple times due to pulmonary infections and her being on steroids off and on, delaying possible healing if she had an operation. She presents back to the hospital with recurrent left lower quadrant abdominal pain and a CT scan that shows inflammation in the sigmoid colon without complication. Her white count is normal. PAST MEDICAL HISTORY: Remarkable for hypothyroidism, diverticulitis multiple times, esophageal reflux, hypertension, asthma, common variable immunodeficiency, irritable bowel, history of DVT and pulmonary embolism. She has had shoulder surgery, knee arthroplasty and a vaginal hysterectomy. MEDICATIONS: Per list. ALLERGIES: ERYTHROMYCIN, LEVOFLOXACIN, POLLEN, ASPIRIN, SINGULAIR, FLUTICASONE AND DUST. SOCIAL HISTORY: The patient is , lives with her . Former smoker, drinks wine. REVIEW OF SYSTEMS: Positive for weakness, easy bruising, abdominal pain, recurrent pulmonary infections. PHYSICAL EXAMINATION: GENERAL: The patient is overweight, in no acute distress. VITAL SIGNS: Blood pressure is 180/110, pulse 88. She has cushingoid facies from being on steroids. ABDOMEN: Obese, I was unable to palpate any internal organs. There was some tenderness in the left lower quadrant. No mass or rebound. IMPRESSION: The patient has recurrent diverticulitis which is uncomplicated, but she does have immunodeficiency and chronic pulmonary infections on steroids which makes eradication more difficult. She is currently on IV ertapenem, which we will continue until she is better enough to complete her treatment as an outpatient. I would also recommend that she contact [facility] to see if they can find a suitable time to remove her sigmoid colon.
[2019-04-19] MEDS: ONDANSETRON INJ 2 MG/ML 2 ML VIAL IV PRN ×2 (00:28→06:00)
[2019-04-19] MEDS: HYDROmorphone INJ 0.5 MG/0.5 ML SYR IV PRN ×3 (00:30→16:50)
[2019-04-19] MEDS: ERTAPENEM SODIUM 1,000 MG in SODIUM CHLORIDE 0.9% 50 ML IV SCH (05:03)
[2019-04-19] MEDS: HEPARIN SOD 5,000 UNIT/0.5 ML VIAL SQ SCH ×3 (05:06→21:33)
[2019-04-19] MEDS: LACTATED RINGER'S 1,000 ML IV SCH ×3 (05:46→21:35)
[2019-04-19] MEDS ORDERED: PROCHLORPERAZINE 5 MG in SYRINGE 4 ML IV ONE (06:18)
[2019-04-19 08:01] LABS: Basophils # (auto) 0.02 K/uL (0-0.2); Basophils % (auto) 0.3 %; Eosinophils # (auto) 0.33 K/uL (0-0.5); Eosinophils % (auto) 4.6 %; Hematocrit (blood only) 35.8 % (37-47); Hemoglobin 11.2 g/dL (12.0-16.0); Immature Granulocytes # (auto) 0.02 K/uL (0.00-0.02); Immature Granulocytes % (auto) 0.3 %; Lymphocytes # (auto) 1.85 K/uL (1.2-3.4); Lymphocytes % (auto) 25.8 %; Mean Corpuscular Hemoglobin 26.2 pg (25-34); Mean Corpuscular Hgb Conc 31.3 g/dL (32-36); Mean Corpuscular Volume 83.6 fL (80-100); Mean Platelet Volume 10.6 fL (7.4-10.4); Monocytes # (auto) 0.65 K/uL (0.11-0.59); Monocytes % (auto) 9.1 %; Neutrophils % (auto) 59.9 %; Platelet Count 248 K/uL (130-400); RDW Coefficient of Variation 19.6 % (11.5-14.5); RDW Standard Deviation 59.9 fL (36.4-46.3); Red Blood Count 4.28 M/uL (4.2-5.4); White Blood Count 7.17 K/uL (4.8-10.8)
[2019-04-19] MEDS: FAMOTIDINE 20 MG in SYRINGE 3 ML IV SCH ×2 (08:18→20:04)
[2019-04-19 08:20] LABS: Albumin Level 2.7 gm/dl (3.4-5.0); BUN Creatinine Ratio 9.4 (10-20); Calcium 9.4 mg/dl (8.5-10.1); Creatinine Clr Calc Pharmacy 69.1 ml/min; Est GFR (African American) 82.8; Est GFR (Non-African American) 71.4; Potassium 3.6 mmol/L (3.5-5.1)
[2019-04-19] MEDS: FLUTICASONE/SALMETEROL (ADVAIR) 500/50 INH 14 PUFF INH SCH ×2 (08:20→20:04)
[2019-04-19] MEDS: TRIAMCINOLONE ACET NASAL SPRAY 10.8ML BTL NAE SCH (08:20)
[2019-04-19 08:23] LABS: Albumin Globulin Ratio 0.8 (0.9-2); Bilirubin,Total 0.5 mg/dl (0.2-1); Globulin 3.6 gm/dl (2.5-4.0); Total Protein 6.3 gm/dl (6.4-8.2)
--- NOTE | 2019-04-19 15:13 | Gastroenterology Progress Note ---
Date of Service April 19, 2019 Assessment & Plan (1) Diverticulitis: recurrent. Pt states has not seen [facility] since last admit 4 months ago secondary to resp infections. Told patient I am worried with her multiple drug allergies that one of these times the abx will not work for her diverticulitis and she may be looking at emergency surgery. So I told her on DC to call [facility] and stress importance of scheduling surgery. In meantime advance to low fiber diet as tolerated and when stable could be DCed on IV abx as outpt elevated alk phos--mild elevation this admit ? from overall infectious process, antibiotic may continue elevatiion, liver imaging on CT fatty liver, trend for now. Subjective CC f/u diverticulitis HPI Pt states abd pain improved. She had some clears just started. Review of Systems Respiratory: + chest congestion Cardiovascular: no chest pain Physical Exam Constitutional: WD/WN, vitals as above Respiratory: normal respiratory effort, lungs clear to auscultation Cardiovascular: RRR, no murmur, no edema Gastrointestinal (Abdomen): normal bowel sounds, soft, nontender, no hepatosplenomegaly Neurologic: PERRL, EOMI, accommodation nl, no face palsy, no dysarthria Psychiatric: A+Ox3, euthymic affect Results & Data Vital Signs (Past 12 Hours) Vital Signs Temp Pulse Pulse Resp BP BP Pulse Ox 04/19/19 14:48 37.0 C 90 18 159/85 H 95 04/19/19 11:18 36.9 C 90 18 150/80 H 91 04/19/19 08:00 92 H 04/19/19 07:30 36.9 C 76 18 157/90 H 95 04/19/19 05:19 80 04/19/19 03:12 36.5 C 100 H 20 155/89 H 91
[2019-04-19] MEDS ORDERED: DiphenhydrAMINE HCL 50 MG/ML VIAL IV STA (17:26)
[2019-04-19] MEDS ORDERED: EPINEPHRINE ADULT AUTO-INJECT 0.3 MG SYR IM PRN (17:43)
[2019-04-19] MEDS ORDERED: methylPREDNISolone 125 MG/2 ML VIAL IV PRN (17:44)
[2019-04-19 18:28] LABS: Basophils # (auto) 0.03 K/uL (0-0.2); Basophils % (auto) 0.4 %; Eosinophils # (auto) 0.21 K/uL (0-0.5); Eosinophils % (auto) 2.6 %; Hematocrit (blood only) 37.1 % (37-47); Hemoglobin 11.2 g/dL (12.0-16.0); Immature Granulocytes # (auto) 0.02 K/uL (0.00-0.02); Immature Granulocytes % (auto) 0.3 %; Lymphocytes # (auto) 1.87 K/uL (1.2-3.4); Lymphocytes % (auto) 23.6 %; Mean Corpuscular Hemoglobin 25.3 pg (25-34); Mean Corpuscular Hgb Conc 30.2 g/dL (32-36); Mean Corpuscular Volume 83.7 fL (80-100); Mean Platelet Volume 10.7 fL (7.4-10.4); Monocytes # (auto) 0.56 K/uL (0.11-0.59); Monocytes % (auto) 7.1 %; Neutrophils # (auto) 5.25 K/uL (1.4-6.5); Platelet Count 260 K/uL (130-400); RDW Coefficient of Variation 19.5 % (11.5-14.5); RDW Standard Deviation 59.9 fL (36.4-46.3); Red Blood Count 4.43 M/uL (4.2-5.4); White Blood Count 7.94 K/uL (4.8-10.8)
[2019-04-19 18:33] LABS: Albumin Level 2.7 gm/dl (3.4-5.0); BUN Creatinine Ratio 6.9 (10-20); Calcium 9.5 mg/dl (8.5-10.1); Creatinine Clr Calc Pharmacy 62.4 ml/min; Est GFR (African American) 73.1; Est GFR (Non-African American) 63.1; Potassium 3.3 mmol/L (3.5-5.1)
[2019-04-19 18:43] LABS: Albumin Globulin Ratio 0.7 (0.9-2); Bilirubin,Total 0.5 mg/dl (0.2-1); Globulin 3.7 gm/dl (2.5-4.0); T4 Free Thyroxine 1.13 ng/dl (0.8-1.6); Thyroid Stimulating Hormone 0.817 uIu/ml (0.300-4.500); Total Protein 6.4 gm/dl (6.4-8.2)
[2019-04-19] MEDS ORDERED: methylPREDNISolone 125 MG in SYRINGE 0 ML IV PRN (18:57)
--- NOTE | 2019-04-19 21:28 | Ultrasound Report ---
ULTRASOUND OF THE THYROID GLAND CLINICAL HISTORY: Neck pain. Thyroid tenderness. COMPARISON STUDY: CT of the cervical spine dated 10/12/2015. TECHNIQUE: Real-time, grayscale, and color flow sonography of the thyroid gland is performed utilizin g a high-frequency linear transducer. Images are reviewed in the transverse and longitudinal planes. FINDINGS: Right lobe: The right lobe of the thyroid gland is normal in size and heterogeneous in echotexture, m easuring 4.7 x 2.0 x 1.6 cm. A solid and cystic nodule in the midpole measures 2.7 x 1.9 x 1.5 cm. Th ere is no hyperemia on color imaging. Left lobe: The left lobe of the thyroid gland is normal in size and heterogeneous in echotexture, katya suring 3.9 x 2.0 x 1.9 cm. A solid and cystic nodule in the midpole measures 2.2 x 1.8 x 1.8 cm. A so lid and cystic nodule in the lower pole measures 1.4 x 1.3 x 1.7 cm. There is no hyperemia on color i maging. Isthmus: The thyroid isthmus is thickened and heterogeneous, measuring 0.5 cm in AP diameter. IMPRESSION: 1. The thyroid gland is normal in size and heterogeneous in echotexture. Correlation with serum thyro id function studies will be required. 2. There are bilateral low suspicion thyroid nodules as above. These are likely unchanged from a 2016 CT scan of the cervical spine. Electronically signed by: Taz Talavera M.D. 04/19/2019 9:27 PM
--- NOTE | 2019-04-19 23:21 | Hospitalist Progress Note ---
Date of Service April 19, 2019 Assessment & Plan (1) Throat swelling: Patient with multiple allergic reaction in the past. Feels her throat is swollen. No stridor or wheezing on exam. Diphendydramine given due to concern for allergy which caused dry mouth. Epipen and methylprednisone prescribed PRN if patient feeling like her throat is closing up or difficulty breathing. Patient to be placed on continuous pulse oximetry overnight for reassurance although I think this has not progressed over the three hours I saw her prior to worm packer. Handed over to resident physician Dr Sparks who is aware of patient. (2) Diverticulitis: Recurrent diverticulitis- Most recent admission to [facility] 10/29-11/01/2018, treated with IV per ertapenem inpatient and outpatient at [facility]. Advance diet to clear fluids Continue ondansetron 4 mg IV every 6 hours PRN. Will reduce fluid to 75 ml/hr now tolerating some liquids Continue ertapenem 1 g IV daily. No blood cultures previously taken, will take now CT questions possible underlying sigmoid lesion - however recent colonoscopy in December with only Appreciate gastroenterology recommendations (3) Intractable abdominal pain: See above (4) Nausea: See above (5) Dyslipidemia: Hold simvastatin while n.p.o. (6) GERD (gastroesophageal reflux disease): Famotidine 20 mg IV every 12 hours (7) HTN (hypertension): Hold triamterene/HCTZ, Klor-Con 20 mEq p.o. twice daily. Lopressor 5 mg IV every 4 hours as needed systolic blood pressure above 160 (8) Asthma: Continue DuoNeb every 4 hours as needed (9) Common variable immunodeficiency: Receives IVIG monthly as outpatient. Continue probiotics. Continue fludrocortisone. (10) DVT prophylaxis: Continue heparin 5000 units SQ Q8H (11) Discharge planning issues: Plan on setting up [facility] with ertapenem dosing to be done as outpatient when tolerating diet and throat swelling resolved. Subjective Patient seen prior to and after lunch. Did well with breakfast in the morning and felt she was improving. No abdominal pain. After lunch she felt her throat was closing up. She has had multiple allergies before in the past and was concerned having allergic reaction. No chest tightness, wheezing or stridor. [place] her tongue may be swollen but normal on exam. Feels her neck becoming tender. Review of Systems Review of Systems: All systems reviewed & are unremarkable except as noted in HPI & below Physical Exam Constitutional: well developed and + obese; no acute distress and not ill appearing Eyes: normal pupil size ENMT: external ear and nose normal, oropharynx normal Neck: trachea midline and + neck tender (bilateral, when pt felt throat swelling) Respiratory: normal respiratory effort, lungs clear to auscultation Cardiovascular: RRR, no murmur, no edema Gastrointestinal (Abdomen): Percussion/Palpation: + abdomen tender (LLQ tenderness, improving) Musculoskeletal: no cyanosis or clubbing, extremities motor strength 5/5 Skin: no rashes, warm and dry Neurologic: moves all extremities and awake; no focal motor deficits and not confused Speech / Cognition: normal speech Motor/Sensory: no tremor and no sensory deficit Psychiatric: A+Ox3, euthymic affect Results & Data Vital Signs (Past 12 Hours) Vital Signs Temp Pulse Pulse Resp BP BP Pulse Ox 04/19/19 21:18 96 H 166/82 H 04/19/19 20:04 98.6 F 86 16 180/108 H 92 04/19/19 17:40 97.7 F 98 H 175/102 H 95 04/19/19 15:56 90 04/19/19 14:48 98.6 F 90 18 159/85 H 95 04/19/19 11:18 98.4 F 90 18 150/80 H 91 PG Care Time/CCT Total # of Minutes Spent Total Time Spent with Patient: Total time spent is greater than 50% in co ordination of care (as documented) at patient's floor/unit and/or counseling patient:
[2019-04-20] MEDS: ONDANSETRON INJ 2 MG/ML 2 ML VIAL IV PRN ×3 (01:49→19:45)
[2019-04-20] MEDS: ERTAPENEM SODIUM 1,000 MG in SODIUM CHLORIDE 0.9% 50 ML IV SCH (05:27)
[2019-04-20] MEDS: HEPARIN SOD 5,000 UNIT/0.5 ML VIAL SQ SCH ×3 (05:27→20:33)
[2019-04-20] MEDS: LEVOTHYROXINE SODIUM 50 MCG TABLET PO SCH (05:29)
[2019-04-20 08:59] LABS: Basophils # (auto) 0.02 K/uL (0-0.2); Basophils % (auto) 0.2 %; Eosinophils # (auto) 0.28 K/uL (0-0.5); Eosinophils % (auto) 2.9 %; Hematocrit (blood only) 38.2 % (37-47); Hemoglobin 11.9 g/dL (12.0-16.0); Immature Granulocytes # (auto) 0.02 K/uL (0.00-0.02); Immature Granulocytes % (auto) 0.2 %; Lymphocytes # (auto) 1.84 K/uL (1.2-3.4); Lymphocytes % (auto) 19.2 %; Mean Corpuscular Hgb Conc 31.2 g/dL (32-36); Mean Corpuscular Volume 83.4 fL (80-100); Mean Platelet Volume 11.4 fL (7.4-10.4); Monocytes # (auto) 0.72 K/uL (0.11-0.59); Monocytes % (auto) 7.5 %; Neutrophils # (auto) 6.72 K/uL (1.4-6.5); Platelet Count 299 K/uL (130-400); RDW Coefficient of Variation 19.4 % (11.5-14.5); RDW Standard Deviation 58.7 fL (36.4-46.3); Red Blood Count 4.58 M/uL (4.2-5.4)
[2019-04-20] MEDS: FLUTICASONE/SALMETEROL (ADVAIR) 500/50 INH 14 PUFF INH SCH ×2 (09:22→20:32)
[2019-04-20] MEDS: TRIAMCINOLONE ACET NASAL SPRAY 10.8ML BTL NAE SCH (09:22)
[2019-04-20] MEDS: CETIRIZINE HCL 10 MG TABLET PO SCH (09:23)
[2019-04-20 09:38] LABS: BUN Creatinine Ratio 5.8 (10-20); Calcium 9.8 mg/dl (8.5-10.1); Creatinine Clr Calc Pharmacy 64.8 ml/min; Est GFR (African American) 76.1; Est GFR (Non-African American) 65.7; Potassium 3.2 mmol/L (3.5-5.1)
[2019-04-20 09:41] LABS: Albumin Globulin Ratio 0.8 (0.9-2); Bilirubin,Total 0.5 mg/dl (0.2-1)
[2019-04-20] MEDS: FAMOTIDINE 20 MG in SYRINGE 3 ML IV SCH ×2 (09:45→20:33)
[2019-04-20] MEDS: HEPARIN 100 UNIT/ML 5ML FLUSH FLUSH PRN (10:23)
[2019-04-20] MEDS: HYDROmorphone INJ 0.5 MG/0.5 ML SYR IV PRN (14:03)
--- NOTE | 2019-04-20 16:29 | Gastroenterology Progress Note ---
Date of Service April 20, 2019 Assessment & Plan (1) Diverticulitis: recurrent. Pt states has not seen [facility] since last admit 4 months ago secondary to resp infections. worse clinically so diet back to clears. elevated alk phos--mild elevation this admit ? from overall infectious process, antibiotic may contribute--- liver imaging on CT fatty liver, trend for now. worse today but abx choices so limited so would not change abx unless severe elevation. Subjective cc abd pain HPI Pt with increased abd pain post advancing to solid diet yesterday. She states today lower abd pain 8/10 prior to pain meds currently 2/10. No stools. Review of Systems Respiratory: + cough; no dyspnea Cardiovascular: no chest pain Physical Exam Constitutional: WD/WN, vitals as above Respiratory: normal respiratory effort, lungs clear to auscultation Cardiovascular: RRR, no murmur, no edema Gastrointestinal (Abdomen): pos bs, soft, no guarding nor rebound Results & Data Vital Signs (Past 12 Hours) Vital Signs Temp Pulse Resp BP BP Pulse Ox 04/20/19 15:00 37.3 C 110 H 20 166/98 H 92 04/20/19 11:25 37.2 C 102 H 18 151/85 H 94 04/20/19 07:23 37.2 C 106 H 18 156/104 H 175/95 H 93
[2019-04-20] MEDS: SIMVASTATIN 20 MG TAB PO SCH (20:33)
[2019-04-20] MEDS: OXYCODONE/ACETAMINOPHEN 5mg/325mg TAB PO PRN (22:48)
--- NOTE | 2019-04-20 23:45 | Hospitalist Progress Note ---
Date of Service April 20, 2019 Assessment & Plan (1) Throat swelling: Suspect a viral sore throat. Thyroid US unremarkable Objectively unclear presence. Subjective she reports resolved. (2) Diverticulitis: Recurrent diverticulitis- Most recent admission to [facility] 10/29-11/01/2018, treated with IV per ertapenem inpatient and outpatient at [facility]. Go back to clears for tonight after vomiting Continue ondansetron 4 mg IV every 6 hours PRN. Will reduce fluid to 75 ml/hr now tolerating some liquids Continue ertapenem [address] questions possible underlying sigmoid lesion - however recent colonoscopy in December with only Appreciate gastroenterology recommendations (3) Intractable abdominal pain: Resolved (4) Nausea: See above (5) Dyslipidemia: Continue home meds (6) GERD (gastroesophageal reflux disease): PO pantoprazole (7) HTN (hypertension): Continue home meds - triamterene/HCTZ, Klor-Con 20 mEq p.o. twice daily. (8) Asthma: Continue Advair Continue DuoNeb every 4 hours as needed (9) Common variable immunodeficiency: Receives IVIG monthly as outpatient. Continue probiotics. Continue fludrocortisone. (10) DVT prophylaxis: Continue heparin 5000 units SQ Q8H (11) Discharge planning issues: Plan on setting up [facility] with ertapenem dosing to be done as outpatient when tolerating diet (will likely need to be Monday now it is the weekend) Subjective Patient feels she is improving. Mouth very dry after Benadryl given yesterday. Still feels some throat soreness but not swollen. Was initially tolerating more food but vomited this morning therefore switched back to liquid diet. Passing flatus but no BM yet (not unusual for her). Abdominal pain in LLQ mostly resolved. Review of Systems Review of Systems: All systems reviewed & are unremarkable except as noted in HPI & below Physical Exam Constitutional: well developed and + obese; no acute distress and not ill appearing Eyes: normal pupil size ENMT: external ear and nose normal, oropharynx normal Neck: trachea midline and + neck tender (mild bilateral tenderness, improving) Respiratory: normal respiratory effort, lungs clear to auscultation Cardiovascular: RRR, no murmur, no edema Gastrointestinal (Abdomen): normal bowel sounds, soft, nontender, no hepatosplenomegaly Musculoskeletal: no cyanosis or clubbing, extremities motor strength 5/5 Skin: + rash (erythema of skin over thyroid, nurses report patient constantly rubbing are) Neurologic: moves all extremities and awake; no focal motor deficits and not confused Speech / Cognition: normal speech Motor/Sensory: no sensory deficit Psychiatric: A+Ox3, euthymic affect Results & Data Vital Signs (Past 12 Hours) Vital Signs Temp Pulse Resp BP BP Pulse Ox 04/20/19 23:32 98.6 F 95 H 16 143/74 H 94 04/20/19 15:00 99.1 F 110 H 20 166/98 H 92 PG Care Time/CCT Total # of Minutes Spent Total Time Spent with Patient: Total time spent is greater than 50% in coordination of care (as documented) at patient's floor/unit and/or counseling patient:
[2019-04-21] MEDS: ERTAPENEM SODIUM 1,000 MG in SODIUM CHLORIDE 0.9% 50 ML IV SCH (05:22)
[2019-04-21] MEDS: LEVOTHYROXINE SODIUM 50 MCG TABLET PO SCH (05:22)
[2019-04-21] MEDS: HEPARIN SOD 5,000 UNIT/0.5 ML VIAL SQ SCH ×3 (05:23→20:59)
[2019-04-21 07:45] LABS: Basophils # (auto) 0.02 K/uL (0-0.2); Basophils % (auto) 0.2 %; Eosinophils # (auto) 0.35 K/uL (0-0.5); Eosinophils % (auto) 3.4 %; Hematocrit (blood only) 37.1 % (37-47); Hemoglobin 11.7 g/dL (12.0-16.0); Immature Granulocytes # (auto) 0.03 K/uL (0.00-0.02); Immature Granulocytes % (auto) 0.3 %; Lymphocytes # (auto) 2.58 K/uL (1.2-3.4); Mean Corpuscular Hemoglobin 26.1 pg (25-34); Mean Corpuscular Hgb Conc 31.5 g/dL (32-36); Mean Corpuscular Volume 82.6 fL (80-100); Mean Platelet Volume 10.9 fL (7.4-10.4); Monocytes # (auto) 0.94 K/uL (0.11-0.59); Monocytes % (auto) 9.1 %; Neutrophils # (auto) 6.38 K/uL (1.4-6.5); Platelet Count 304 K/uL (130-400); RDW Coefficient of Variation 19.3 % (11.5-14.5); RDW Standard Deviation 58.3 fL (36.4-46.3); Red Blood Count 4.49 M/uL (4.2-5.4)
[2019-04-21 08:32] LABS: Albumin Level 2.9 gm/dl (3.4-5.0); BUN Creatinine Ratio 6.5 (10-20); Calcium 9.7 mg/dl (8.5-10.1); Creatinine Clr Calc Pharmacy 63.3 ml/min; Est GFR (African American) 74.1; Est GFR (Non-African American) 63.9; Potassium 3.4 mmol/L (3.5-5.1)
[2019-04-21 08:35] LABS: Albumin Globulin Ratio 0.8 (0.9-2); Bilirubin,Total 0.6 mg/dl (0.2-1); Globulin 3.8 gm/dl (2.5-4.0); Total Protein 6.7 gm/dl (6.4-8.2)
[2019-04-21] MEDS: FAMOTIDINE 20 MG in SYRINGE 3 ML IV SCH (08:59)
[2019-04-21] MEDS: TRIAMCINOLONE ACET NASAL SPRAY 10.8ML BTL NAE SCH (09:00)
[2019-04-21] MEDS: FLUTICASONE/SALMETEROL (ADVAIR) 500/50 INH 14 PUFF INH SCH ×2 (09:00→20:59)
[2019-04-21] MEDS: CETIRIZINE HCL 10 MG TABLET PO SCH (09:00)
[2019-04-21] MEDS: OXYCODONE/ACETAMINOPHEN 5mg/325mg TAB PO PRN ×4 (09:01→22:24)
[2019-04-21] MEDS: HEPARIN 100 UNIT/ML 5ML FLUSH FLUSH PRN (09:01)
--- NOTE | 2019-04-21 17:38 | Gastroenterology Progress Note ---
Date of Service April 21, 2019 Assessment & Plan (1) Diverticulitis: recurrent. Pt states has not seen [facility] since last admit 4 months ago secondary to resp infections. improved, Recommend she or her PCP call [facility] on DC to arrange sigmoid resection. elevated alk phos--mild elevation this admit ? from overall infectious process, antibiotic may contribute--- liver imaging on CT fatty liver, better today I am going off service tomorrow at [address] Gross is assuming GI care then. Subjective CC abd pain HPI Pt states on full liquids and doing better then when first on them.Had some abd pain this am now better. Review of Systems Respiratory: no dyspnea Cardiovascular: no chest pain Physical Exam Constitutional: WD/WN, vitals as above Respiratory: normal respiratory effort, lungs clear to auscultation Cardiovascular: RRR, no murmur, no edema Gastrointestinal (Abdomen): normal bowel sounds, soft, nontender, no hepatosplenomegaly Neurologic: PERRL, EOMI, accommodation nl, no face palsy, no dysarthria Psychiatric: A+Ox3, euthymic affect Results & Data Vital Signs (Past 12 Hours) Vital Signs Temp Pulse Resp BP Pulse Ox 04/21/19 14:59 37.0 C 103 H 20 145/81 H 92 04/21/19 07:00 36.9 C 89 18 167/81 H 94
--- NOTE | 2019-04-21 19:55 | Hospitalist Progress Note ---
Date of Service April 21, 2019 Assessment & Plan (1) Throat swelling: Suspect a viral sore throat. Appears to be mostly resolved at this time. Thyroid US unremarkable (2) Diverticulitis: Recurrent diverticulitis Most recent admission to [facility] [place] 10/29-11/01/2018, treated with IV per ertapenem inpatient and outpatient at [facility]. Continue ondansetron 4 mg IV every 6 hours PRN. Continue ertapenem [address] questions possible underlying sigmoid lesion - however recent colonoscopy in December with only Full liquids today. If tolerating will switch to low fiber diet in AM. Nutrition drinks ordered as she has not been eating well for many days/weeks. Appreciate Gi recommendations. Patient to call her surgeon @ [facility] on discharge. (3) Intractable abdominal pain: Resolved (4) Nausea: See above (5) Dyslipidemia: Continue home meds (6) GERD (gastroesophageal reflux disease): Switch famotidine IV back to PO pantoprazole now tolerating PO (7) HTN (hypertension): Restart home meds - triamterene/HCTZ, Klor-Con 20 mEq p.o. twice daily. (8) Asthma: Continue Advair Continue DuoNeb every 4 hours as needed (9) Common variable immunodeficiency: Receives IVIG monthly as outpatient. Continue probiotics. Continue fludrocortisone. (10) DVT prophylaxis: Continue heparin Q8H (11) Discharge planning issues: Plan for discharge for [facility] treatment to finish ertapenem course tomorrow. Subjective Patient feels she is improving. Ready to go home but currently only on clear fluids this morning and still not eating well. No dizziness on standing. Normal BM. No abdominal pain. No nausea or vomiting today. Physical Exam Constitutional: well developed and + obese; no acute distress and not ill appearing Eyes: normal pupil size ENMT: external ear and nose normal, oropharynx normal Neck: normal visual inspection (erythema from rubbing neck improving) and trachea midline Respiratory: normal respiratory effort, lungs clear to auscultation Cardiovascular: RRR, no murmur, no edema Gastrointestinal (Abdomen): normal bowel sounds, soft, nontender, no hepatosplenomegaly Musculoskeletal: no cyanosis or clubbing, extremities motor strength 5/5 Skin: no rashes, warm and dry Neurologic: moves all extremities and awake; no focal motor deficits and not confused Speech / Cognition: normal speech Motor/Sensory: no tremor and no sensory deficit Psychiatric: A+Ox3, euthymic affect Results & Data Vital Signs (Past 12 Hours) Vital Signs Temp Pulse Resp BP Pulse Ox 04/21/19 14:59 98.6 F 103 H 20 145/81 H 92 PG Care Time/CCT Total # of Minutes Spent Total Time Spent with Patient: Total time spent is greater than 50% in coordination of care (as documented) at patient's floor/unit and/or counseling patient: (1) GERD (gastroesophageal reflux disease) Esophagitis presence: without esophagitis Qualified Code(s): K21.9 - Gastro- esophageal reflux disease without esophagitis (2) HTN (hypertension) Hypertension type: essential hypertension Qualified Code(s): I10 - Essential (primary) hypertension (3) Asthma Asthma severity: unspecified severity Asthma persistence: unspecified Asthma complication type: unspecified Qualified Code(s): J45.909 - Unspecified asthma, uncomplicated
[2019-04-21] MEDS: SIMVASTATIN 20 MG TAB PO SCH (20:59)
[2019-04-21] MEDS: POTASSIUM CHLORIDE 20 MEQ TABCR PO SCH (20:59)
[2019-04-22] MEDS: ONDANSETRON INJ 2 MG/ML 2 ML VIAL IV PRN ×3 (04:36→13:28)
[2019-04-22] MEDS: OXYCODONE/ACETAMINOPHEN 5mg/325mg TAB PO PRN ×3 (04:36→19:12)
[2019-04-22] MEDS: HEPARIN SOD 5,000 UNIT/0.5 ML VIAL SQ SCH ×3 (05:47→20:27)
[2019-04-22] MEDS: ERTAPENEM SODIUM 1,000 MG in SODIUM CHLORIDE 0.9% 50 ML IV SCH (05:47)
[2019-04-22] MEDS: LEVOTHYROXINE SODIUM 50 MCG TABLET PO SCH (05:47)
[2019-04-22 07:23] LABS: Basophils # (auto) 0.02 K/uL (0-0.2); Basophils % (auto) 0.2 %; Eosinophils # (auto) 0.25 K/uL (0-0.5); Eosinophils % (auto) 2.4 %; Hematocrit (blood only) 34.7 % (37-47); Hemoglobin 10.8 g/dL (12.0-16.0); Immature Granulocytes # (auto) 0.03 K/uL (0.00-0.02); Immature Granulocytes % (auto) 0.3 %; Lymphocytes # (auto) 1.77 K/uL (1.2-3.4); Lymphocytes % (auto) 17.1 %; Mean Corpuscular Hemoglobin 25.8 pg (25-34); Mean Corpuscular Hgb Conc 31.1 g/dL (32-36); Mean Platelet Volume 10.8 fL (7.4-10.4); Monocytes # (auto) 1.17 K/uL (0.11-0.59); Monocytes % (auto) 11.3 %; Neutrophils % (auto) 68.7 %; Platelet Count 281 K/uL (130-400); RDW Coefficient of Variation 19.1 % (11.5-14.5); RDW Standard Deviation 57.8 fL (36.4-46.3); Red Blood Count 4.18 M/uL (4.2-5.4); White Blood Count 10.34 K/uL (4.8-10.8)
[2019-04-22 07:53] LABS: Albumin Level 2.7 gm/dl (3.4-5.0); BUN Creatinine Ratio 11.2 (10-20); Calcium 9.2 mg/dl (8.5-10.1); Creatinine Clr Calc Pharmacy 68.6 ml/min; Est GFR (African American) 81.6; Est GFR (Non-African American) 70.4; Potassium 3.3 mmol/L (3.5-5.1)
[2019-04-22 07:56] LABS: Albumin Globulin Ratio 0.8 (0.9-2); Bilirubin,Total 0.5 mg/dl (0.2-1); Globulin 3.4 gm/dl (2.5-4.0); Total Protein 6.1 gm/dl (6.4-8.2)
[2019-04-22] MEDS: FLUDROCORTISONE ACETATE 0.1 MG TAB PO SCH (08:09)
[2019-04-22] MEDS: FLUTICASONE/SALMETEROL (ADVAIR) 500/50 INH 14 PUFF INH SCH ×2 (08:09→20:25)
[2019-04-22] MEDS: POTASSIUM CHLORIDE 20 MEQ TABCR PO SCH ×2 (08:09→20:26)
[2019-04-22] MEDS: TRIAMTERENE/HCTZ 37.5/25MG TAB PO SCH (08:10)
[2019-04-22] MEDS: PANTOprazole 40 MG TAB PO SCH (08:10)
[2019-04-22] MEDS: TRIAMCINOLONE ACET NASAL SPRAY 10.8ML BTL NAE SCH (08:10)
[2019-04-22] MEDS: CETIRIZINE HCL 10 MG TABLET PO SCH (08:10)
[2019-04-22] MEDS: HEPARIN 100 UNIT/ML 5ML FLUSH FLUSH PRN ×2 (10:38→13:32)
[2019-04-22] MEDS ORDERED: ONDANSETRON INJ 2 MG/ML 2 ML VIAL IV STA (13:29)
--- NOTE | 2019-04-22 18:51 | Progress Note ---
DATE: 04/22/2019 SUBJECTIVE: The patient is getting ertapenem IV for her recurrent diverticulitis. The patient today had some breakfast, but developed abdominal pain and did not feel well enough to eat anything for lunch today. She describes pain throughout the abdomen, worse on the right than the left and some nausea. OBJECTIVE: VITAL SIGNS: Blood pressure is 137/77, pulse 92, temperature is 37.3, room air saturation 91%. ABDOMEN: Protuberant and tender, more on the right than the left. No mass appreciated. IMPRESSION: The patient has diverticulitis on ertapenem with slow progress. She does have common variable immunodeficiency, which would slow down her recovery I am sure, plus she has been on steroids recently. In addition, there is a concern that she could be developing resistance to the ertapenem, so we will just have to watch and see how she does over the next 24-48 hours.
[2019-04-22] MEDS: SIMVASTATIN 20 MG TAB PO SCH (20:25)
[2019-04-22] MEDS ORDERED: POTASSIUM CHLORIDE 20 MEQ TABCR PO SCH (21:00)
--- NOTE | 2019-04-22 23:13 | Hospitalist Progress Note ---
Date of Service April 22, 2019 Assessment & Plan (1) Throat swelling: Suspect a viral sore throat. Thyroid US unremarkable Resolved. (2) Diverticulitis: Recurrent diverticulitis Most recent admission to [facility] 10/29-11/01/2018, treated with IV per ertapenem inpatient and outpatient at [facility]. Continue ondansetron 4 mg IV every 6 hours PRN. Continue ertapenem [address] questions possible underlying sigmoid lesion - however recent colonoscopy in December with only Patient was to be discharged on 04/23 but her pain worsened. Neutrophils also mildly increased. will monitor. Appreciate Gi recommendations. Patient to call her surgeon @ [facility] on discharge. (3) Intractable abdominal pain: Appears intermittent. will monitor. no signs of peritonitis (4) Nausea: See above (5) Dyslipidemia: Continue home meds (6) GERD (gastroesophageal reflux disease): Switch famotidine IV back to PO pantoprazole now tolerating PO (7) HTN (hypertension): Restart home meds - triamterene/HCTZ, Klor-Con 20 mEq p.o. twice daily. (8) Asthma: Continue Advair Continue DuoNeb every 4 hours as needed (9) Common variable immunodeficiency: Receives IVIG monthly as outpatient. Continue probiotics. Continue fludrocortisone. (10) DVT prophylaxis: Continue heparin Q8H (11) Discharge planning issues: Plan for discharge for [facility] treatment to finish ertapenem course once patient clinically improves. Subjective Patient reports that she would like to return home. However, she continues to have abdominal pain, and she reports she did worsen today. Her pain is in her Right upper quadrant. Patient reports having bowel movement today. Review of Systems Review of Systems: All systems reviewed & are unremarkable except as noted in HPI & below Physical Exam Physical Exam: Constitutional: well developed and + obese; no acute distress and not ill appearing Eyes: normal pupil size ENMT: external ear and nose normal, oropharynx normal Neck: normal visual inspection and trachea midline Respiratory: normal respiratory effort, lungs clear to auscultation Cardiovascular: RRR, no murmur, no edema Gastrointestinal (Abdomen): normal bowel sounds, soft, nontender, no hepatosplenomegaly Musculoskeletal: no cyanosis or clubbing, extremities motor strength 5/5 Skin: no rashes, warm and dry Neurologic: moves all extremities and awake; no focal motor deficits and not confused Speech / Cognition: normal speech Motor/Sensory: no tremor and no sensory deficit Psychiatric: A+Ox3, euthymic affect Results & Data Vital Signs (Past 12 Hours) Vital Signs Temp Pulse Resp BP BP Pulse Ox 04/22/19 22:31 36.9 C 102 H 18 171/97 H 94 04/22/19 16:37 37.3 C 92 H 18 137/77 91 PG Care Time/CCT Total # of Minutes Spent Total Time Spent with Patient: Total time spent is greater than 50% in coordination of care (as documented) at patient's floor/unit and/or counseling patient: (1) GERD (gastroesophageal reflux disease) Esophagitis presence: without esophagitis Qualified Code(s): K21.9 - Gastro- esophageal reflux disease without esophagitis (2) HTN (hypertension) Hypertension type: essential hypertension Qualified Code(s): I10 - Essential (primary) hypertension (3) Asthma Asthma complication type: unspecified Asthma persistence: unspecified Asthma severity: unspecified severity Qualified Code(s): J45.909 - Unspecified asthma, uncomplicated
[2019-04-23] MEDS: OXYCODONE/ACETAMINOPHEN 5mg/325mg TAB PO PRN ×2 (04:12→13:15)
[2019-04-23] MEDS: ERTAPENEM SODIUM 1,000 MG in SODIUM CHLORIDE 0.9% 50 ML IV SCH (05:15)
[2019-04-23] MEDS: HEPARIN SOD 5,000 UNIT/0.5 ML VIAL SQ SCH ×2 (05:55→13:18)
[2019-04-23] MEDS: LEVOTHYROXINE SODIUM 50 MCG TABLET PO SCH (05:55)
[2019-04-23] MEDS: HEPARIN 100 UNIT/ML 5ML FLUSH FLUSH PRN (05:55)
[2019-04-23 06:14] LABS: Basophils # (auto) 0.02 K/uL (0-0.2); Basophils % (auto) 0.2 %; Eosinophils # (auto) 0.19 K/uL (0-0.5); Eosinophils % (auto) 1.9 %; Hematocrit (blood only) 34.8 % (37-47); Hemoglobin 10.7 g/dL (12.0-16.0); Immature Granulocytes # (auto) 0.04 K/uL (0.00-0.02); Immature Granulocytes % (auto) 0.4 %; Lymphocytes # (auto) 1.79 K/uL (1.2-3.4); Lymphocytes % (auto) 17.6 %; Mean Corpuscular Hemoglobin 25.5 pg (25-34); Mean Corpuscular Hgb Conc 30.7 g/dL (32-36); Mean Corpuscular Volume 83.1 fL (80-100); Mean Platelet Volume 11.5 fL (7.4-10.4); Monocytes # (auto) 1.38 K/uL (0.11-0.59); Monocytes % (auto) 13.5 %; Neutrophils # (auto) 6.77 K/uL (1.4-6.5); Neutrophils % (auto) 66.4 %; Platelet Count 296 K/uL (130-400); RDW Standard Deviation 58.1 fL (36.4-46.3); Red Blood Count 4.19 M/uL (4.2-5.4); White Blood Count 10.19 K/uL (4.8-10.8)
[2019-04-23 06:52] LABS: BUN Creatinine Ratio 8.1 (10-20); Calcium 9.2 mg/dl (8.5-10.1); Creatinine Clr Calc Pharmacy 65.5 ml/min; Est GFR (African American) 77.2; Est GFR (Non-African American) 66.6; Potassium 3.5 mmol/L (3.5-5.1)
[2019-04-23] MEDS: POTASSIUM CHLORIDE 20 MEQ TABCR PO SCH (07:30)
[2019-04-23] MEDS: FLUTICASONE/SALMETEROL (ADVAIR) 500/50 INH 14 PUFF INH SCH (07:30)
[2019-04-23] MEDS: PANTOprazole 40 MG TAB PO SCH (07:30)
[2019-04-23] MEDS: FLUDROCORTISONE ACETATE 0.1 MG TAB PO SCH (07:31)
[2019-04-23] MEDS: TRIAMTERENE/HCTZ 37.5/25MG TAB PO SCH (07:31)
[2019-04-23] MEDS: TRIAMCINOLONE ACET NASAL SPRAY 10.8ML BTL NAE SCH (07:33)
[2019-04-23] MEDS: CETIRIZINE HCL 10 MG TABLET PO SCH (07:33)
--- NOTE | 2019-04-30 11:31 | Discharge Summary ---
Date of Service April 23, 2019 Admission HPI Per Admitting Provider The patient is a 68-year-old female most recently admitted to [facility] from 10/29-11/01/2018 for diverticulitis, primarily treated with ertapenem IV at that time inpatient and then converted to outpatient due to her multiple drug sensitivities. There was an attempt by the ED to discharge patient to home and have patient on IV ertapenem at [facility], however, the patient reported more significant pain and nausea, and decision has been made to admit the patient. Principal Diagnosis acute diverticulitis Discharge Exam Constitutional: well developed and + obese; no acute distress and not ill appearing Eyes: normal pupil size ENMT: external ear and nose normal, oropharynx normal Neck: normal visual inspection and trachea midline Respiratory: normal respiratory effort, lungs clear to auscultation Cardiovascular: RRR, no murmur, no edema Gastrointestinal (Abdomen): normal bowel sounds, soft, nontender, no hepatosplenomegaly Musculoskeletal: no cyanosis or clubbing, extremities motor strength 5/5 Skin: no rashes, warm and dry Neurologic: moves all extremities and awake; no focal motor deficits and not confused Speech / Cognition: normal speech Motor/Sensory: no tremor and no sensory deficit Psychiatric: A+Ox3, euthymic affect Discharge Data Allergies Allergy/AdvReac Type Severity Reaction Status Date / Time erythromycin base Allergy Severe NAUSEA, Verified 04/30/19 10:02 DRY HEAVES levofloxacin Allergy Severe Anaphylaxis Verified 04/30/19 10:02 pollen extracts Allergy Intermediate SHORTNESS Verified 04/30/19 10:02 OF BREATH aspirin Allergy Unknown HIVES Verified 04/30/19 10:02 montelukast [From Singulair] Allergy Unknown Verified 04/30/19 10:02 fluticasone AdvReac Unknown DIZZINESS Verified 04/30/19 10:02 Dust Allergy Intermediate SETS OFF Uncoded 04/30/19 10:02 ASHMA Consultations 04/18/19 06:02 ED Decision to Admit Stat 04/18/19 07:35 Consult Case Management - Discharge Planning Routine Consult Gastroenterology Routine Ordered Studies 04/18/19 02:58 CT abd pelvis IV con only Urgent 04/19/19 19:33 US thyroid Routine Hospital Course (1) Throat swelling: Suspect a viral sore throat. Thyroid US unremarkable Resolved. (2) Diverticulitis: Recurrent diverticulitis Most recent admission to [facility] 10/29-11/01/2018, treated with IV per ertapenem inpatient and outpatient at [facility]. Continue ondansetron 4 mg IV every 6 hours PRN. Continue ertapenem [address] questions possible underlying sigmoid lesion - however recent colonoscopy in December with only Patient was to be discharged on 04/23 but her pain worsened. Neutrophils also mildly increased. will monitor. Appreciate Gi recommendations. Patient to call her surgeon @ [facility] on discharge. Patient improved on day of discharge. Patient told if symptoms of abdominal pain worsened, to return to the hospital. Patient asked for pain medicine which was given, but explained to patient, that this may mask the pain. If patient requires 2 or more doses per 24 hour period, to please call PCP or return to the hospital. (3) Intractable abdominal pain: Appears intermittent. will monitor. no signs of peritonitis (4) Nausea: See above (5) Dyslipidemia: Continue home meds (6) GERD (gastroesophageal reflux disease): Switch famotidine IV back to PO pantoprazole now tolerating PO (7) HTN (hypertension): Restart home meds - triamterene/HCTZ, Klor-Con 20 mEq p.o. twice daily. (8) Asthma: Continue Advair Continue DuoNeb every 4 hours as needed (9) Common variable immunodeficiency: Receives IVIG monthly as outpatient. Continue probiotics. Continue fludrocortisone. (10) DVT prophylaxis: Continue heparin Q8H (11) Discharge planning issues: Plan for discharge for [facility] treatment to finish ertapenem course once patient clinically improves. Total Time Total Time Spent Total Time Spent (In Minutes): 32 Total Time Includes: Examination of the Patient, Discharge Planning and Medication Reconciliation Discharge Plan Discharge Items Patient Disposition: Home - Self-Care Reason For Visit: DIVERTICULITIS Discharge Diagnosis: Acute diverticulitis Activity: Resume your previous activity Non-emergency contact: Primary Care Provider Call non-emergency contact if: you have any medication questions Follow-up/Referrals: Joselito Harrington MD [Primary Care Provider] - (Please, follow up with Dr. Harrington. *A nurse from the office will call you with the appointment information. If you have any questions, call the office at [phone].) Diet: Full liquid Addtl Attending Provider Instructions: Recommend followup with PCP in 1-2 weeks. Recommend followup with providers at [facility] to remove sigmoid colon Will set up [facility] for IV ertapenem. If pain worsens, please return to the hospital. If you require more pain medicine, please contact your PCP or return to the hospital. Pending Studies at Discharge: No Stand-Alone Forms: Call Back Authorization, [facility], Smoking Cessation, Suicide Prevention Resources Medications and DC Order Prescriptions: New pantoprazole 40 mg Tablet,Delayed Release (Dr/Ec) 40 mg PO QAM Qty: 30 RF: 0 ertapenem 1 gram recon soln 1 gm IV DAILY 8 Days Qty: 8 RF: 0 oxycodone-acetaminophen 5-325 mg tablet 1 tab PO Q8H PRN (Reason: pain) Qty: 14 RF: 0 metoclopramide HCl 5 mg tablet 5 mg PO DAILY Qty: 30 RF: 0 Continued simvastatin 20 mg tablet 20 mg PO HS Qty: 90 RF: 3 triamcinolone acetonide [Nasacort] 55 mcg aerosol,spray 2 spray Intranasal QAM Qty: 16.9 RF: 3 albuterol sulfate [Ventolin HFA] 90 mcg/actuation HFA aerosol inhaler 2 puff INHALATION Q4H PRN (Reason: Shortness Of Breath) Qty: 1 RF: 11 albuterol sulfate 2.5 mg /3 mL (0.083 %) Solution For Nebulization 2.5 mg inhalation Q6H PRN (Reason: Shortness Of Breath) RF: 0 cetirizine [Zyrtec] 10 mg Tablet 10 mg PO QAM RF: 0 fludrocortisone 0.1 mg Tablet 0.1 mg PO QAM RF: 0 fluticasone propion-salmeterol [Advair Diskus] 500-50 mcg/dose Blister With Device 1 inh INHALATION BID RF: 0 levothyroxine 50 mcg Tablet 50 mcg PO QAM RF: 0 immune globulin,gamma(IgG)ifas 10 % Solution 1 dose IV MONTHLY RF: 0 Ensure Liquid 1 - 2 can PO BID RF: 0 potassium chloride [Klor-Con M20] 20 mEq tablet,ER particles/crystals 20 meq PO BID RF: 0 monster (Zingiber officinalis) 250 mg Capsule PO DAILY RF: 0 ondansetron 4 mg tablet,disintegrating 4 mg PO Q6H PRN (Reason: nausea and vomiting) Qty: 12 RF: 0 ranitidine HCl 300 mg tablet 300 mg PO UD RF: 0 triamterene-hydrochlorothiazid 37.5-25 mg tablet 0.5 tab PO QAM RF: 0 lansoprazole 30 mg capsule,delayed release(DR/EC) 30 mg PO DAILY RF: 0 Probiotic 5 billion cell Capsule, Sprinkle 1 cap PO DAILY RF: 0 No Action Trulance 3 mg Tablet 3 mg PO DAILY RF: 0 Discharge Orders: Discharge Order (Routine); Ordered 04/23/19 Ordered By: Maksim Lopez Admission Data Admit Date/Time: 04/18/19 06:27 Attending Provider: Maksim Lopez Admit Provider: Jose Calvin Primary Care Provider: Joselito Harrington Other Providers: Lincoln Gross Other Interventions: Discharge Summary Assessment (RN) Last Done: 04/23/19 14:27 DC Date/Time DO NOT enter until pt leaves facility: 04/23/19 14:56
== END 2019-04-23 14:56 | disposition home or self-care (01) | DRG 392 ==
LOC: ED 02:13 → SUATTDRO 06:27 → 2W 06:27 → 3N 04-22 18:31

== ENCOUNTER 2019-05-05 06:04 | Inpatient (IN) ==
--- NOTE | 2019-05-05 06:36 | Emergency Department Note ---
Entered by Laura Antonio acting as a scribe for Cassi Coleman MD History of Present Illness General Chief complaint: Vomiting Stated complaint: NAUSEA/VOMITING/DIARRHEA Time Seen by Provider: 05/05/19 06:31 Source: patient History of Present Illness Onset (ago): day(s) 2 Location: abdomen Pain Consistency: + other (persistent) Maximum Pain Intensity: 8 Quality: + other (vomiting) Relieved By: not by medication (Zofran) Associated symptoms: + other (nausea, diarrhea, severe abdominal pain, difficulty speaking) The patient is a 68 year old female that is presenting to the Emergency Room with complaints of persistent vomiting that started 2 days ago. The patient reports that she has had associated nausea, diarrhea and severe abdominal pain. She notes that diarrhea is somewhat common for her at baseline but states that it is not usually accompanied by vomiting at the same time. She reports that she has been taking Zofran without relief of her nausea. She notes that she is having difficulty speaking secondary to her symptoms. She states that she was admitted to the hospital 2 weeks ago for diverticulitis and was discharged after 1 week on IV antibiotics. She notes that she finished her antibiotics 3 days ago. She reports that she has been feeling unwell and called to have the antibiotics extended. She states that she was told that she would need to be readmitted for reevaluation. The patient reports that she was communicating with [facility] to arrange an elective removal of the sigmoid colon. She notes that she has a history of chronic asthma and states that they are unwilling to do the surgery unless she has 25 days without a respiratory issue or 6 weeks without Prednisone, which is uncommon for her. She states that she is followed by Dr. Harrington. The patient reports that she is also immune deficient and there is concern for antibiotic resistance. Home Medications Home Medications Medication Instructions Recorded Confirmed Type albuterol sulfate 2.5 mg INHALATION Q6H PRN 06/09/18 05/05/19 History cetirizine [Zyrtec] 10 mg PO QAM 06/09/18 05/05/19 History fludrocortisone 0.1 mg PO QAM 06/09/18 05/05/19 History fluticasone propion-salmeterol 1 inh INHALATION BID 06/09/18 05/05/19 History [Advair Diskus] levothyroxine 50 mcg PO QAM 06/09/18 05/05/19 History immune globulin,gamma(IgG)ifas 1 dose IV MONTHLY 09/08/18 05/05/19 History Ensure 1 - 2 can PO BID 10/28/18 05/05/19 History triamcinolone acetonide 55 mcg 2 spray INTRANASAL QAM #16.9 ml 01/22/19 05/05/19 Rx nasal spray aerosol albuterol sulfate HFA 90 2 puff INHALATION Q4H PRN #1 02/22/19 05/05/19 Rx mcg/actuation aerosol inhaler inhaler monster (Zingiber officinalis) 0 mg PO DAILY 04/02/19 05/05/19 History ondansetron 4 mg PO Q6H PRN #12 tab 04/02/19 05/05/19 Rx potassium chloride [Klor-Con M20] 20 meq PO BID 04/02/19 05/05/19 History Probiotic 1 cap PO DAILY 04/18/19 05/05/19 History metoclopramide HCl 5 mg PO DAILY #30 tab 04/23/19 05/05/19 Rx oxycodone-acetaminophen 1 tab PO Q8H PRN #14 tab 04/23/19 05/05/19 Rx pantoprazole 40 mg PO QAM #30 tab 04/23/19 05/05/19 Rx lansoprazole 30 mg capsule,delayed PO #90 cap 05/07/19 05/07/19 History release plecanatide 3 mg tablet PO #90 tab 05/07/19 05/07/19 History ranitidine 300 mg tablet PO #30 tab 05/07/19 05/07/19 History triamterene 37.5 PO #30 tab 05/07/19 05/07/19 History mg-hydrochlorothiazide 25 mg tablet simvastatin 20 mg tablet 20 mg PO HS #90 tab 05/08/19 Rx Allergies Allergy/AdvReac Type Severity Reaction Status Date / Time levofloxacin Allergy Severe Anaphylaxis Verified 05/05/19 08:40 aspirin Allergy Intermediate HIVES Verified 05/05/19 08:40 house dust Allergy Intermediate ASTHMA Verified 05/05/19 08:40 TRIGGER pollen extracts Allergy Intermediate SHORTNESS Verified 05/05/19 08:40 OF BREATH montelukast [From Singulair] Allergy Unknown Unknown Verified 05/05/19 08:40 erythromycin base AdvReac Intermediate NAUSEA, Verified 05/05/19 08:40 DRY HEAVES fluticasone AdvReac Mild DIZZINESS Verified 05/05/19 08:40 Past Med/Surg History Medical History Hypothyroidism (Acute) Diverticulosis (Acute) GERD (gastroesophageal reflux disease) HTN (hypertension) Asthma (Chronic) Common variable immunodeficiency Diverticulitis Hx of deep venous thrombosis (Resolved) Hx pulmonary embolism (Resolved) IBS (irritable bowel syndrome) Surgical History H/O shoulder surgery H/O vaginal surgery Correction History of total knee arthroplasty S/P vaginal hysterectomy Family History Grandmother Leukemia Stroke Mother Stroke Other Family history non-contributory Hypertension Tuberculosis Social History Preferred Language: Russian Communication Ability: Effective 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 and A total of 10 systems reviewed and were otherwise negative Physical Exam Vital Signs Vital Signs - 24 hr 05/05/19 06:16 05/05/19 07:18 05/05/19 08:11 Temperature 36.7 C Temperature Source Oral Sepsis Recent Fever Within 48 Hours No Sepsis Action Taken by Nursing No Action Required Pulse Rate 74 Pulse Rate [Finger] 88 75 Pulse Rhythm Regular Pulse Strength Normal Respiratory Rate 18 16 16 Respiratory Effort / Characteristics Non-Labored Spontaneous Respiratory Depth Normal Respiratory Pattern Regular Blood Pressure 169/102 H Blood Pressure [Right Arm] 147/82 H 169/99 H Blood Pressure Mean 124 Blood Pressure Mean [Right Arm] 103 122 Blood Pressure Position Sitting Pulse Oximetry 95 90 93 Oxygen Delivery Method Room Air Room Air Room Air 05/05/19 09:46 05/05/19 10:55 Temperature Temperature Source Sepsis Recent Fever Within 48 Hours Sepsis Action Taken by Nursing Pulse Rate Pulse Rate [Finger] 82 77 Pulse Rhythm Pulse Strength Respiratory Rate 16 16 Respiratory Effort / Characteristics Respiratory Depth Respiratory Pattern Blood Pressure Blood Pressure [Right Arm] 176/100 H 158/103 H Blood Pressure Mean Blood Pressure Mean [Right Arm] 125 121 Blood Pressure Position Pulse Oximetry 94 93 Oxygen Delivery Method Room Air Room Air Vital signs reviewed. General: Well-appearing female, actively vomiting a clear frothy liquid during exam. HEENT: No scleral icterus, PERRLA, neck supple. Atraumatic. Cardiovascular: Regular rate and rhythm, no extra sounds. Pulmonary: Clear to auscultation bilaterally, normal work of breathing. Abdomen: Obese, soft, nontender, nondistended, positive bowel sounds. Musculoskeletal: Atraumatic, no peripheral edema. Neurologic: Patient awake alert and oriented x 3 Skin: Warm, dry, no rash Course 0638:The patient was evaluated in room B03B. A complete history and physical examination was performed. 0926: Upon reevaluation, the patient is resting comfortably. I discussed laboratory and radiographic results with the patient. She verbalized agreement of the treatment plan. The patient will be evaluated for further management and care. 0944: I discussed the patients case with Dr. Cooper, [facility], who will evaluate the patient for further management and care. Administered Medications Al Hydrox/Mg Hydrox/Simethicone (Maalox) 30 ml PO Q6H PRN PRN Reason: Dyspepsia Stop: 06/04/19 12:58 Last Admin: 05/08/19 03:06 Dose: 30 ml Documented by: [id number] Admin: 05/07/19 12:26 Dose: 30 ml Documented by: [id number] Enoxaparin Sodium (Lovenox) 40 mg SQ HS KAREN Stop: 06/06/19 17:29 Last Admin: 05/07/19 19:56 Dose: 40 mg Documented by: [id number] Sodium Chloride (Nss 1000ml) 1,000 mls @ 125 mls/hr IV .Q8H KAREN Stop: 06/04/19 06:44 Last Infusion: 05/08/19 06:17 Dose: 125 mls/hr Documented by: [id number] Admin: 05/08/19 05:03 Dose: 125 mls/hr Documented by: [id number] Infusion: 05/08/19 04:42 Dose: 125 mls/hr Documented by: [id number] Admin: 05/07/19 20:42 Dose: 125 mls/hr Documented by: [id number] Infusion: 05/07/19 20:42 Dose: 125 mls/hr Documented by: [id number] Admin: 05/07/19 12:51 Dose: 125 mls/hr Documented by: [id number] Infusion: 05/07/19 12:42 Dose: 125 mls/hr Documented by: [id number] Infusion: 05/07/19 06:21 Dose: 125 mls/hr Documented by: [id number] Admin: 05/07/19 04:41 Dose: 125 mls/hr Documented by: [id number] Infusion: 05/07/19 04:41 Dose: 125 mls/hr Documented by: [id number] Admin: 05/06/19 20:43 Dose: 125 mls/hr Documented by: [id number] Infusion: 05/06/19 20:43 Dose: 125 mls/hr Documented by: [id number] Admin: 05/06/19 13:20 Dose: 125 mls/hr Documented by: [id number] Infusion: 05/06/19 13:20 Dose: 125 mls/hr Documented by: [id number] Admin: 05/06/19 05:25 Dose: 125 mls/hr Documented by: [id number] Infusion: 05/06/19 05:25 Dose: 125 mls/hr Documented by: [id number] Admin: 05/05/19 21:55 Dose: 125 mls/hr Documented by: [id number] Infusion: 05/05/19 21:55 Dose: 125 mls/hr Documented by: [id number] Admin: 05/05/19 14:05 Dose: 125 mls/hr Documented by: [id number] Infusion: 05/05/19 14:05 Dose: 125 mls/hr Documented by: [id number] Admin: 05/05/19 06:58 Dose: 125 mls/hr Documented by: [id number] Piperacillin Sod/Tazobactam (Sod 4.5 gm/ Dextrose) 120 mls @ 30 mls/hr IV Q8H KAREN; Protocol Stop: 05/15/19 14:59 Last Admin: 05/08/19 06:00 Dose: 30 mls/hr Documented by: [id number] Infusion: 05/08/19 01:49 Dose: 30 mls/hr Documented by: [id number] Admin: 05/07/19 21:49 Dose: 30 mls/hr Documented by: [id number] Infusion: 05/07/19 19:15 Dose: 0 mls/hr Documented by: [id number] Admin: 05/07/19 14:00 Dose: 30 mls/hr Documented by: [id number] Infusion: 05/07/19 10:22 Dose: 0 mls/hr Documented by: [id number] Admin: 05/07/19 05:57 Dose: 30 mls/hr Documented by: [id number] Infusion: 05/07/19 02:42 Dose: 0 mls/hr Documented by: [id number] Admin: 05/06/19 22:25 Dose: 30 mls/hr Documented by: [id number] Levothyroxine Sodium (Synthroid) 50 mcg PO DAILYBB [facility] Stop: 06/05/19 06:29 Last Admin: 05/08/19 06:00 Dose: 50 mcg Documented by: [id number] Admin: 05/07/19 05:57 Dose: 50 mcg Documented by: [id number] Admin: 05/06/19 05:29 Dose: 50 mcg Documented by: [id number] Metoclopramide HCl (Reglan) 5 mg PO DAILY [facility] Stop: 06/04/19 12:58 Last Admin: 05/08/19 08:15 Dose: 5 mg Documented by: [id number] Admin: 05/07/19 08:36 Dose: 5 mg Documented by: [id number] Admin: 05/06/19 08:36 Dose: 5 mg Documented by: [id number] Admin: 05/05/19 14:06 Dose: 5 mg Documented by: [id number] Morphine Sulfate (Morphine Sulfate) 2 mg IV Q4H PRN PRN Reason: Pain Stop: 05/19/19 14:40 Last Admin: 05/08/19 08:14 Dose: 2 mg Documented by: [id number] Admin: 05/07/19 19:55 Dose: 2 mg Documented by: [id number] Admin: 05/07/19 12:48 Dose: 2 mg Documented by: [id number] Admin: 05/07/19 08:35 Dose: 2 mg Documented by: [id number] Ondansetron HCl (Zofran Odt) 4 mg PO Q6H PRN PRN Reason: nausea and vomiting Stop: 06/04/19 12:58 Last Admin: 05/08/19 05:05 Dose: 4 mg Documented by: [id number] Pantoprazole Sodium (Protonix) 40 mg PO QAM [facility] Stop: 06/04/19 12:58 Last Admin: 05/08/19 08:15 Dose: 40 mg Documented by: [id number] Admin: 05/07/19 08:36 Dose: 40 mg Documented by: [id number] Admin: 05/06/19 08:36 Dose: 40 mg Documented by: [id number] Admin: 05/05/19 14:05 Dose: 40 mg Documented by: [id number] Potassium Chloride (Klor-Con M20) 20 meq PO BID KAREN Stop: 06/04/19 12:58 Last Admin: 05/07/19 20:42 Dose: 20 meq Documented by: [id number] Admin: 05/07/19 08:36 Dose: 20 meq Documented by: [id number] Admin: 05/06/19 20:44 Dose: 20 meq Documented by: [id number] Admin: 05/06/19 08:36 Dose: 20 meq Documented by: [id number] Admin: 05/05/19 21:11 Dose: 20 meq Documented by: [id number] Admin: 05/05/19 14:07 Dose: Not Given Documented by: [id number] Fluticasone/Salmeterol (Advair Diskus 500/50) 1 puffs INH BID KAREN Stop: 06/04/19 12:58 Last Admin: 05/08/19 08:15 Dose: 1 puffs Documented by: [id number] Admin: 05/07/19 20:42 Dose: 1 puffs Documented by: [id number] Admin: 05/07/19 08:35 Dose: 1 puffs Documented by: [id number] Admin: 05/06/19 20:44 Dose: 1 puffs Documented by: [id number] Admin: 05/06/19 08:36 Dose: 1 puffs Documented by: [id number] Admin: 05/05/19 21:11 Dose: 1 puffs Documented by: [id number] Admin: 05/05/19 14:04 Dose: 1 puffs Documented by: [id number] Simvastatin (Zocor) 20 mg PO HS KAREN Stop: 06/04/19 20:59 Last Admin: 05/07/19 20:42 Dose: 20 mg Documented by: [id number] Admin: 05/06/19 20:44 Dose: 20 mg Documented by: [id number] Admin: 05/05/19 21:11 Dose: 20 mg Documented by: [id number] Discontinued Medications Hydralazine HCl (Hydralazine Hcl) 10 mg IV NOW STA Stop: 05/05/19 09:21 Last Admin: 05/05/19 10:21 Dose: Not Given Documented by: [id number] Hydromorphone HCl (Dilaudid) 0.5 mg IV NOW STA Stop: 05/05/19 06:42 Last Admin: 05/05/19 06:57 Dose: 0.5 mg Documented by: [id number] Hydromorphone HCl (Dilaudid) 0.5 mg IV NOW STA Stop: 05/05/19 08:42 Last Admin: 05/05/19 08:58 Dose: 0.5 mg Documented by: [id number] Hydromorphone HCl (Dilaudid) 0.5 mg IV NOW STA Stop: 05/05/19 11:59 Last Admin: 05/05/19 12:13 Dose: 0.5 mg Documented by: [id number] Sodium Chloride (Nss) 500 mls @ 999 mls/hr IV .Q31M [facility] Stop: 05/05/19 07:15 Last Infusion: 05/05/19 07:33 Dose: 0 mls/hr Documented by: [id number] Admin: 05/05/19 06:58 Dose: 999 mls/hr Documented by: [id number] Piperacillin Sod/Tazobactam Sod (Zosyn) 4.5 gm in 120 mls @ 240 mls/hr IV NOW ONE Stop: 05/05/19 09:48 Last Infusion: 05/05/19 10:21 Dose: 0 mls/hr Documented by: [id number] Admin: 05/05/19 09:47 Dose: 240 mls/hr Documented by: [id number] Piperacillin Sod/Tazobactam (Sod 3.375 gm/ Dextrose) 115 mls @ 28.75 mls/hr IV Q8H [facility]; Protocol Stop: 05/06/19 18:40 Last Infusion: 05/06/19 18:41 Dose: 0 mls/hr Documented by: [id number] Admin: 05/06/19 14:40 Dose: 28.8 mls/hr Documented by: [id number] Infusion: 05/06/19 10:32 Dose: 0 mls/hr Documented by: [id number] Admin: 05/06/19 06:04 Dose: 28.8 mls/hr Documented by: [id number] Infusion: 05/06/19 02:15 Dose: 0 mls/hr Documented by: [id number] Admin: 05/05/19 22:01 Dose: 28.8 mls/hr Documented by: [id number] Infusion: 05/05/19 18:05 Dose: 0 mls/hr Documented by: [id number] Admin: 05/05/19 14:05 Dose: 28.8 mls/hr Documented by: [id number] Ioversol (Optiray 320 100ml) 95 ml IV ONCE PRN PRN Reason: Interaction Checking Stop: 05/09/19 08:02 Last Admin: 05/05/19 08:04 Dose: 95 ml Documented by: [id number] Morphine Sulfate (Morphine Sulfate) 4 mg IV Q4H PRN PRN Reason: Pain Stop: 05/19/19 14:40 Last Admin: 05/07/19 02:43 Dose: 4 mg Documented by: [id number] Admin: 05/06/19 22:25 Dose: 4 mg Documented by: [id number] Admin: 05/06/19 18:13 Dose: 4 mg Documented by: [id number] Admin: 05/06/19 10:34 Dose: 4 mg Documented by: [id number] Admin: 05/06/19 05:25 Dose: 4 mg Documented by: [id number] Admin: 05/05/19 21:59 Dose: 4 mg Documented by: [id number] Admin: 05/05/19 15:47 Dose: 4 mg Documented by: [id number] Ondansetron HCl (Zofran) 4 mg IV NOW STA Stop: 05/05/19 06:42 Last Admin: 05/05/19 06:57 Dose: 4 mg Documented by: [id number] Medical Decision Making Differential Diagnosis Differential diagnosis: Etiologies such as gastroenteritis, food borne illness, infections, appendicitis, diverticulitis, inflammatory bowel disease, obstruction, GI bleed, biliary pathology, as well as others were entertained. Medical Records Attestation: I reviewed the patient's medical records. Home Medications Current Medication List: was personally reviewed by me Laboratory Data Attestation: I reviewed the patient's lab results. Result diagrams: 05/08/19 07:21 05/07/19 04:53 Lab Results 05/05/19 05/05/19 Range/Units 06:49 06:49 WBC 13.54 H (4.8-10.8) K/uL RBC 4.52 (4.2-5.4) M/uL Hgb 11.7 L (12.0-16.0) g/dL Hct 37.2 (37-47) % MCV 82.3 (80-100) fL MCH 25.9 (25-34) pg MCHC 31.5 L (32-36) g/dL RDW Std Deviation 56.7 H (36.4-46.3) fL RDW Coeff of Mandeep 18.7 H (11.5-14.5) % Plt Count 319 (130-400) K/uL MPV 10.6 H (7.4-10.4) fL Immature Gran % (Auto) 0.1 % Neut % (Auto) 75.4 % Lymph % (Auto) 15.4 % [place] % (Auto) 8.7 % Eos % (Auto) 0.3 % Baso % (Auto) 0.1 % Immature Gran # (Auto) 0.02 (0.00-0.02) K/uL Neut # (Auto) 10.20 H (1.4-6.5) K/uL Lymph # (Auto) 2.08 (1.2-3.4) K/uL [place] # (Auto) 1.18 H (0.11-0.59) K/uL Eos # (Auto) 0.04 (0-0.5) K/uL Baso # (Auto) 0.02 (0-0.2) K/uL Sodium 140 (136-145) mmol/L Potassium 3.4 L (3.5-5.1) mmol/L Chloride 110 H (98-107) mmol/L Carbon Dioxide 20 L (21-32) mmol/L Anion Gap 10.0 (3-11) BUN 13 (7-18) mg/dl Creatinine 1.02 (0.6-1.2) mg/dl Est Cr Clr Drug Dosing 60.5 ml/min Est GFR ( Amer) 64.5 Est GFR (Non-Af Amer) 55.7 BUN/Creatinine Ratio 13.0 (10-20) Glucose 130 H (70-99) mg/dl Calcium 10.1 (8.5-10.1) mg/dl Total Bilirubin 0.4 (0.2-1) mg/dl AST 15 (15-37) U/L ALT 19 (12-78) U/L Alkaline Phosphatase 120 H (45-117) U/L Total Protein 7.4 (6.4-8.2) gm/dl Albumin 2.9 L (3.4-5.0) gm/dl Globulin 4.5 H (2.5-4.0) gm/dl Albumin/Globulin Ratio 0.6 L (0.9-2) Lipase 88 (73-393) U/L Imaging Data Radiologist's Impression: Radiology results as stated below per my review and the radiologist's interpretation: CT SCAN OF THE ABDOMEN AND PELVIS WITH IV CONTRAST CLINICAL HISTORY: Generalized abdominal pain. Vomiting and diarrhea. COMPARISON STUDY: Abdominal CT dated 04/18/2019. TECHNIQUE: Following the IV administration of 95 cc of Optiray 320, CT scan of the abdomen and pelvis is performed from the lung bases to the proximal femora. Images are reviewed in the axial, sagittal, and coronal planes. IV contrast was administered without complication. A dose lowering technique was utilized adhering to the principles of ALARA. CT DOSE: 1274.06 mGy.cm FINDINGS: Lung bases: The heart is normal in size and without pericardial effusion. The lung bases are clear noting bibasilar scarring/atelectasis. There is a small hiatal hernia. Liver: The contrast-enhanced liver is enlarged, measuring 18.7 cm in length. The liver demonstrates diffusely diminished attenuation consistent with hepatic steatosis. Fatty sparing is seen adjacent to the gallbladder fossa. There is no intrahepatic biliary ductal dilatation. The hepatic veins and portal veins are patent. Gallbladder: Unremarkable. Spleen: Normal in size and attenuation. Pancreas: Atrophic and grossly unremarkable. Adrenal glands: Unremarkable. Kidneys: The contrast enhanced kidneys demonstrate cortical atrophy and are without hydronephrosis. The kidneys enhance symmetrically. Numerous bilateral renal cysts measure up to 4.3 cm. Additional subcentimeter cortical hypodensities also likely represent cysts but are too small for definitive azra cterization. Abdominal vasculature: The abdominal aorta is normal in course and caliber. Bowel: There is moderate colonic diverticulosis. There is significant wall thickening with pericolonic inflammation and fluid involving the sigmoid colon which extends at least 10 cm in length. This has worsened from 04/18/2019. No organized fluid collection is seen to suggest abscess. There is no bowel obst ruction. Moderate fecal retention is noted in the colon. The appendix is well- visualized and normal. Peritoneum: There is no intraperitoneal free air or abdominal ascites. There is a fat-containing umbilical hernia. Lymphadenopathy: None. Pelvic viscera: The bladder is normal as visualized. The uterus is surgically absent. No adnexal lesion is seen. Skeletal structures: The skeletal structures are osteopenic. Moderate lumbosacral spondylosis is observed. No lytic or blastic lesions are seen. IMPRESSION: 1. There is moderate colonic diverticulosis, with a long segment (at least 10 cm) of thick-walled sigmoid colon with surrounding inflammation and trace fluid. This could represent acute diverticulitis or possibly colitis (given length of involvement), and this has worsened from 04/18/2019. 2. No intraperitoneal free air is seen and there is no organized fluid collection to suggest abscess. 3. Hepatomegaly and hepatic steatosis. 4. Additional findings as above. Electronically signed by: Taz Talavera M.D. 05/05/2019 8:25 AM Blood Pressure Blood Pressure Findings: Elevated blood pressure Blood Pressure Disposition: elevated BP felt to be situational MDM Narrative This pt was evaluated and appeared to be in some discomfort. IV access was obtained and lab work was drawn. IVF were initiated and pt was given IV dilaudid and zofran. Lab work reveals a leukocytosis of 13.5. CT abd and pelvis was performed and is read as above, with concern for worsening shilo- sigmoid colonic infiltrate. Given pt's inability to tolerate po meds and current IV ertapenem regimen, pt was medicated with IV zosyn and discussed with the hospitalist service for further management. Impression & Plan Colitis, Diverticulosis Discharge Plan Visit Data *Final* Discharge Date/Time: 05/05/19 12:08 Chief Complaint: Vomiting Stated Complaint: NAUSEA/VOMITING/DIARRHEA Other Complaint: Diarrhea ED Provider: Cassi Coleman Discharge Problem: Colitis, Diverticulosis Patient Disposition: Admitted As Inpatient Discharge Instructions Interventions: ED Discharge Assessment Last Done: 05/05/19 12:08 The scribe's documentation has been prepared under my direction and personally reviewed by me in its entirety. I confirm that the note above accurately refl ects all work, treatment, procedures, and medical decision making performed by me.
[2019-05-05] MEDS ORDERED: ONDANSETRON INJ 2 MG/ML 2 ML VIAL IV STA (06:41)
[2019-05-05] MEDS ORDERED: HYDROmorphone INJ 0.5 MG/0.5 ML SYR IV STA ×3 (06:41→11:58)
[2019-05-05] MEDS ORDERED: SODIUM CHLORIDE 0.9% 500 ML IV SCH (06:45)
[2019-05-05] MEDS: SODIUM CHLORIDE 0.9% 1000ML 1,000 ML IV SCH ×3 (06:58→21:55)
[2019-05-05 07:02] LABS: Basophils # (auto) 0.02 K/uL (0-0.2); Basophils % (auto) 0.1 %; Eosinophils # (auto) 0.04 K/uL (0-0.5); Eosinophils % (auto) 0.3 %; Hematocrit (blood only) 37.2 % (37-47); Hemoglobin 11.7 g/dL (12.0-16.0); Immature Granulocytes # (auto) 0.02 K/uL (0.00-0.02); Immature Granulocytes % (auto) 0.1 %; Lymphocytes # (auto) 2.08 K/uL (1.2-3.4); Lymphocytes % (auto) 15.4 %; Mean Corpuscular Hemoglobin 25.9 pg (25-34); Mean Corpuscular Hgb Conc 31.5 g/dL (32-36); Mean Corpuscular Volume 82.3 fL (80-100); Mean Platelet Volume 10.6 fL (7.4-10.4); Monocytes # (auto) 1.18 K/uL (0.11-0.59); Monocytes % (auto) 8.7 %; Neutrophils % (auto) 75.4 %; Platelet Count 319 K/uL (130-400); RDW Coefficient of Variation 18.7 % (11.5-14.5); RDW Standard Deviation 56.7 fL (36.4-46.3); Red Blood Count 4.52 M/uL (4.2-5.4); White Blood Count 13.54 K/uL (4.8-10.8)
[2019-05-05 07:20] LABS: Creatinine Clr Calc Pharmacy 60.5 ml/min
[2019-05-05 07:51] LABS: Albumin Level 2.9 gm/dl (3.4-5.0); Calcium 10.1 mg/dl (8.5-10.1); Est GFR (African American) 64.5; Est GFR (Non-African American) 55.7; Potassium 3.4 mmol/L (3.5-5.1)
[2019-05-05 07:54] LABS: Albumin Globulin Ratio 0.6 (0.9-2); Bilirubin,Total 0.4 mg/dl (0.2-1); Globulin 4.5 gm/dl (2.5-4.0); Total Protein 7.4 gm/dl (6.4-8.2)
[2019-05-05] MEDS ORDERED: IOVERSOL 100ml IV PRN (08:03)
--- NOTE | 2019-05-05 08:26 | CT Scan Report ---
CT SCAN OF THE ABDOMEN AND PELVIS WITH IV CONTRAST CLINICAL HISTORY: Generalized abdominal pain. Vomiting and diarrhea. COMPARISON STUDY: Abdominal CT dated 04/18/2019. TECHNIQUE: Following the IV administration of 95 cc of Optiray 320, CT scan of the abdomen and pelvi s is performed from the lung bases to the proximal femora. Images are reviewed in the axial, sagittal , and coronal planes. IV contrast was administered without complication. A dose lowering technique wa s utilized adhering to the principles of ALARA. CT DOSE: 1274.06 mGy.cm FINDINGS: Lung bases: The heart is normal in size and without pericardial effusion. The lung bases are clear no ting bibasilar scarring/atelectasis. There is a small hiatal hernia. Liver: The contrast-enhanced liver is enlarged, measuring 18.7 cm in length. The liver demonstrates d iffusely diminished attenuation consistent with hepatic steatosis. Fatty sparing is seen adjacent to the gallbladder fossa. There is no intrahepatic biliary ductal dilatation. The hepatic veins and port al veins are patent. Gallbladder: Unremarkable. Spleen: Normal in size and attenuation. Pancreas: Atrophic and grossly unremarkable. Adrenal glands: Unremarkable. Kidneys: The contrast enhanced kidneys demonstrate cortical atrophy and are without hydronephrosis. T he kidneys enhance symmetrically. Numerous bilateral renal cysts measure up to 4.3 cm. Additional sub centimeter cortical hypodensities also likely represent cysts but are too small for definitive charac terization. Abdominal vasculature: The abdominal aorta is normal in course and caliber. Bowel: There is moderate colonic diverticulosis. There is significant wall thickening with pericoloni c inflammation and fluid involving the sigmoid colon which extends at least 10 cm in length. This has worsened from 04/18/2019. No organized fluid collection is seen to suggest abscess. There is no radha l obstruction. Moderate fecal retention is noted in the colon. The appendix is well-visualized and n ormal. Peritoneum: There is no intraperitoneal free air or abdominal ascites. There is a fat-containing umbi lical hernia. Lymphadenopathy: None. Pelvic viscera: The bladder is normal as visualized. The uterus is surgically absent. No adnexal lesi on is seen. Skeletal structures: The skeletal structures are osteopenic. Moderate lumbosacral spondylosis is obse rved. No lytic or blastic lesions are seen. IMPRESSION: 1. There is moderate colonic diverticulosis, with a long segment (at least 10 cm) of thick-walled sig moid colon with surrounding inflammation and trace fluid. This could represent acute diverticulitis o r possibly colitis (given length of involvement), and this has worsened from 04/18/2019. 2. No intraperitoneal free air is seen and there is no organized fluid collection to suggest abscess. 3. Hepatomegaly and hepatic steatosis. 4. Additional findings as above. Electronically signed by: Taz Talavera M.D. 05/05/2019 8:25 AM
[2019-05-05] MEDS ORDERED: PIPERACILLIN/TAZOBACTAM 4.5 GM/120 ML BAG IV ONE (09:19)
[2019-05-05] MEDS ORDERED: PIPERACILL/TAZOBAC CONSULT ACTIVE PRN (09:19)
[2019-05-05] MEDS ORDERED: HydrALAZINE HCL 20 MG/ML VIAL IV STA (09:20)
[2019-05-05] MEDS ORDERED: POLYETHYLENE (MIRALAX) 17 GM PACK PO PRN (12:59)
[2019-05-05] MEDS ORDERED: MAGNESIUM HYDROXIDE SUSP 30 ML UDC PO PRN (12:59)
[2019-05-05] MEDS ORDERED: HydrALAZINE 10 MG TAB PO PRN (12:59)
[2019-05-05] MEDS ORDERED: ALBUTEROL 0.083% NEBU SOLN 3 ML VIAL INH PRN (12:59)
[2019-05-05] MEDS ORDERED: OXYCODONE/ACETAMINOPHEN 5mg/325mg TAB PO PRN (12:59)
--- NOTE | 2019-05-05 13:15 | History & Physical Report ---
Date of Service May 05, 2019 Assessment & Plan (1) Diverticulitis: 68 yo F with PMHx recurrent diverticulitis with multiple admissions, CVID, asthma, autonomic dysfunction, hypothyroidism, GERD presents for worsening diverticulitis/colitis despite completion of ertapenem IV antibiotic treatment outpatient. Diverticulitis/Colitis - Pt has continued inflammation of her colon suggesting worsening diverticulitis/colitis from prior visit. She has been admitted multiple times just this year for diverticulitis which before now has resolved with a longer course of antibiotics due to her immunodeficiency. - Now with WBC count of 13.54 from 10.19 on 04/23/19; also with a left shift suggestive of infectious process. Most likely etiology of infection is GI given symptoms and lack of urinary or respiratory symptoms. - Her most recent diverticulitis not only did not improve on outpatient ertapenem but got worse both clinically by the patient's symptoms and on CT Abdomen/Pelvis. - Have placed on Zosyn at this time in the event that her diverticulitis is resistant to ertapenem, though this seems unlikely. - Have consulted both Dr. Gross with GI and Dr. Jacobs with ID whose practices follow this patient and appreciate recommendations for best practices moving forward to prevent further recurrence of her diverticulitis. - Ultimately will likely need to involve surgery as it seems that her diverticulitis is resistant to medical management and her quality of life over a number of years now is severely decreased due to abdominal pain, nausea, and recurrent hospital stays as a direct result of her diverticulitis. 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 Hypothyroidism - Continue home levothyroxine 50mcg qAM. HTN - Has a history of syncope and is followed by Dr. Carbajal for autonomic dysfunction. - No recent presyncope, pt is running slightly hypertensive. HTN likely convoluted by abdominal pain. No symptoms such as dizziness, visual changes, CP, SOB. - Have hydralazine 10mg q4h PRN SBP >170 and will reevaulate HTN thorughout the day. Autonomic dysfunction - See HTN above Asthma - Pt without symptoms of SOB or wheezing at this time. - Will continue home Ventolin Q6H PRN SOB/wheezing, Advair Diskus BID scheduled. Hypokalemia - Potassium 3.4 today. - Continue home Potassium chloride 20meq PO BID. BMP AM. GERD - pt without symptoms of reflux at this time. - Continue home pantoprazole 40mg qAM. HLD - Continue home simvastatin 20mg daily. (2) Colitis: (3) Common variable hypogammaglobulinemia: (4) Autonomic dysfunction: (5) Hypothyroidism: (6) HTN (hypertension): (7) Asthma: (8) Hypokalemia: (9) Dyslipidemia: (10) GERD (gastroesophageal reflux disease): History of Present Illness Chief Complaint: vomiting and abdominal pain Primary Care Provider: Joselito Harrington MD 68 yo F PMHx recurrent diverticulitis most recent admission 10 days ago, common variable immunodeficiency, asthma, GERD, autonomic dysfunction who presented to the ED for nausea and vomiting with sasociated abdominal pain in the setting of recent diverticulitis treated outpatient with Ertapenem. In ED given Zosyn, IV fluids, Zofran. CT Abdomen Pelvis showed worsening of her diverticulitis/colitis. Our team consulted for admission. On interview patient states that she was last discharged from [facility] for similar complaints and diagnosed with recurrent diverticulitis and placed on IV ertapenem which she was getting outpatient at the [facility]. She completed her ertapenem 05/01/19 and between discharge and completion of her Abx she did not feel any alleviation of her symptoms. Early Monday morning she had several wa ves of severe abdominal pain with nausea and ultimate NBNB emesis. She also had some episodes of diarrhea, also nonbloody. Throughout Monday could not keep any solids down and just had monster salo throughout the day. Then early this AM had the same series of complaints occur again which prompted her coming to the hospital. Throughout this process denies fevers or chills, chest pain, shortness of breath. Patient follows with Dr. Gross and with Dr. Jewell given her outpatient IV antibiotics. Allergies Allergy/AdvReac Type Severity Reaction Status Date / Time levofloxacin Allergy Severe Anaphylaxis Verified 05/05/19 08:40 aspirin Allergy Intermediate HIVES Verified 05/05/19 08:40 house dust Allergy Intermediate ASTHMA Verified 05/05/19 08:40 TRIGGER pollen extracts Allergy Intermediate SHORTNESS Verified 05/05/19 08:40 OF BREATH montelukast [From Singulair] Allergy Unknown Unknown Verified 05/05/19 08:40 erythromycin base AdvReac Intermediate NAUSEA, Verified 05/05/19 08:40 DRY HEAVES fluticasone AdvReac Mild DIZZINESS Verified 05/05/19 08:40 Home Medications Home Medications Medication Instructions Recorded Confirmed Type albuterol sulfate 2.5 mg INHALATION Q6H PRN 06/09/18 05/05/19 History cetirizine [Zyrtec] 10 mg PO QAM 06/09/18 05/05/19 History fludrocortisone 0.1 mg PO QAM 06/09/18 05/05/19 History fluticasone propion-salmeterol 1 inh INHALATION BID 06/09/18 05/05/19 History [Advair Diskus] levothyroxine 50 mcg PO QAM 06/09/18 05/05/19 History immune globulin,gamma(IgG)ifas 1 dose IV MONTHLY 09/08/18 05/05/19 History Ensure 1 - 2 can PO BID 10/28/18 05/05/19 History simvastatin 20 mg tablet 20 mg PO HS #90 tab 01/22/19 05/05/19 Rx triamcinolone acetonide 55 mcg 2 spray INTRANASAL QAM #16.9 ml 01/22/19 05/05/19 Rx nasal spray aerosol albuterol sulfate HFA 90 2 puff INHALATION Q4H PRN #1 02/22/19 05/05/19 Rx mcg/actuation aerosol inhaler inhaler monster (Zingiber officinalis) 0 mg PO DAILY 04/02/19 05/05/19 History ondansetron 4 mg PO Q6H PRN #12 tab 04/02/19 05/05/19 Rx potassium chloride [Klor-Con M20] 20 meq PO BID 04/02/19 05/05/19 History Probiotic 1 cap PO DAILY 04/18/19 05/05/19 History metoclopramide HCl 5 mg PO DAILY #30 tab 04/23/19 05/05/19 Rx oxycodone-acetaminophen 1 tab PO Q8H PRN #14 tab 04/23/19 05/05/19 Rx pantoprazole 40 mg PO QAM #30 tab 04/23/19 05/05/19 Rx Past Med/Surg History Medical History Hypothyroidism (Acute) Diverticulosis (Acute) GERD (gastroesophageal reflux disease) HTN (hypertension) Asthma (Chronic) Common variable immunodeficiency Diverticulitis Hx of deep venous thrombosis (Resolved) Hx pulmonary embolism (Resolved) IBS (irritable bowel syndrome) Surgical History H/O shoulder surgery H/O vaginal surgery Correction History of total knee arthroplasty S/P vaginal hysterectomy Family History Grandmother Leukemia Stroke Mother Stroke Other Family history non-contributory Hypertension Tuberculosis Social History Preferred Language: Mongolian Communication Ability: Effective Mammographer Required: No Beliefs That Will Affect Care: None marital status: Current Living Situation: Spouse Other Information That Helps Us Care for You: No Feels Safe at Home: Yes Safety Concerns: Feels Safe At This Time Smoking Status: Former smoker Tobacco Type: cigarettes ; Do You Dip or Chew Tobacco: No ; Second Hand Exposure: Yes (childhood) ; Tobacco Cessation Education Requested by Patient: No Hx Alcohol Use: Yes (rarely) Alcohol type: wine Hx Substance Use: No Review of Systems Constitutional: + fatigue and + malaise; no fever and no chills Respiratory: no cough, no dyspnea and no wheezing Cardiovascular: no chest pain, no palpitations and no edema Gastrointestinal: + abdominal pain, + nausea, + vomiting (NBNB) and + diarrhea/loose stools; no blood in stools Genitourinary: no dysuria Physical Exam Constitutional: WD/WN, vitals as above ENMT: external ear and nose normal, oropharynx normal Respiratory: normal respiratory effort, lungs clear to auscultation Cardiovascular: RRR, no murmur, no edema Gastrointestinal (Abdomen): decreased bowel sounds. Abdomen soft, TTP in LLQ but without rebound or guarding. Skin: no rashes, warm and dry Psychiatric: A+Ox3, euthymic affect Results & Data Vital Signs (Past 12 Hours) Vital Signs Temp Pulse Pulse Resp BP BP Pulse Ox 05/05/19 11:57 69 18 147/85 H 92 05/05/19 10:55 77 16 158/103 H 93 05/05/19 09:46 82 16 176/100 H 94 05/05/19 08:11 75 16 169/99 H 93 05/05/19 07:18 88 16 147/82 H 90 05/05/19 06:16 36.7 C 74 18 169/102 H 95 Laboratory Results Laboratory Results - last 24 hr 05/05/19 05/05/19 06:49 06:49 WBC 13.54 H RBC 4.52 Hgb 11.7 L Hct 37.2 MCV 82.3 MCH 25.9 MCHC 31.5 L RDW Std Deviation 56.7 H RDW Coeff of Mandeep 18.7 H Plt Count 319 MPV 10.6 H Immature Gran % (Auto) 0.1 Neut % (Auto) 75.4 Lymph % (Auto) 15.4 [place] % (Auto) 8.7 Eos % (Auto) 0.3 Baso % (Auto) 0.1 Immature Gran # (Auto) 0.02 Neut # (Auto) 10.20 H Lymph # (Auto) 2.08 [place] # (Auto) 1.18 H Eos # (Auto) 0.04 Baso # (Auto) 0.02 Sodium 140 Potassium 3.4 L Chloride 110 H Carbon Dioxide 20 L Anion Gap 10.0 BUN 13 Creatinine 1.02 Est Cr Clr Drug Dosing 60.5 Est GFR ( Amer) 64.5 Est GFR (Non-Af Amer) 55.7 BUN/Creatinine Ratio 13.0 Glucose 130 H Calcium 10.1 Total Bilirubin 0.4 AST 15 ALT 19 Alkaline Phosphatase 120 H Total Protein 7.4 Albumin 2.9 L Globulin 4.5 H Albumin/Globulin Ratio 0.6 L Lipase [address] Abdomen/Pelvis 05/05/19: IMPRESSION: 1. There is moderate colonic diverticulosis, with a long segment (at least 10 cm) of thick-walled sigmoid colon with surrounding inflammation and trace fluid. This could represent acute diverticulitis or possibly colitis (given length of involvement), and this has worsened from 04/18/2019. 2. No intraperitoneal free air is seen and there is no organized fluid collection to suggest abscess. 3. Hepatomegaly and hepatic steatosis. 4. Additional findings as above. Medications Administered Current Medications Acetaminophen (Tylenol) 650 mg PO Q4H PRN PRN Reason: pain/fever Stop: 06/04/19 12:58 Al Hydrox/Mg Hydrox/Simethicone (Maalox) 30 ml PO Q6H PRN PRN Reason: Dyspepsia Stop: 06/04/19 12:58 Albuterol (Ventolin 0.083% 2.5mg/3ml) 2.5 mg INH Q6H PRN PRN Reason: Shortness Of Breath Stop: 06/04/19 12:58 Hydralazine HCl (Apresoline) 10 mg PO Q4H PRN PRN Reason: SBP >170 Stop: 06/04/19 12:58 Sodium Chloride (Nss 1000ml) 1,000 mls @ 125 mls/hr IV .Q8H [facility] Stop: 06/04/19 06:44 Last Admin: 05/05/19 06:58 Dose: 125 mls/hr Documented by: Piperacillin Sod/Tazobactam (Sod 3.375 gm/ Dextrose) 115 mls @ 28.75 mls/hr IV Q8H [facility]; Protocol Stop: 05/15/19 14:59 Levothyroxine Sodium (Synthroid) 50 mcg PO DAILYBB [facility] Stop: 06/05/19 06:29 Magnesium Hydroxide (Milk Of Magnesia) 30 ml PO Q6H PRN PRN Reason: Constipation Stop: 06/04/19 12:58 Metoclopramide HCl (Reglan) 5 mg PO DAILY [facility] Stop: 06/04/19 12:58 Miscellaneous Information (Consult) 1 ea N/A UD PRN PRN Reason: Consult Stop: 06/04/19 09:18 Ondansetron HCl (Zofran Odt) 4 mg PO Q6H PRN PRN Reason: nausea and vomiting Stop: 06/04/19 12:58 Oxycodone/Acetaminophen (Percocet 5mg/325mg) 1 tab PO Q8H PRN PRN Reason: pain Stop: 05/19/19 12:58 Pantoprazole Sodium (Protonix) 40 mg PO QAM [facility] Stop: 06/04/19 12:58 Polyethylene Glycol (Miralax Powder Packet) 17 gm PO DAILY PRN PRN Reason: Constipation Stop: 06/04/19 12:58 Potassium Chloride (Klor-Con M20) 20 meq PO BID [facility] Stop: 06/04/19 12:58 Fluticasone/Salmeterol (Advair Diskus 500/50) 1 puffs INH BID [facility] Stop: 06/04/19 12:58 Simvastatin (Zocor) 20 mg PO HS [facility] Stop: 06/04/19 20:59 Code Status & VTE Plan VTE Prophylaxis Plan VTE Prophylaxis will be ordered: Yes Supervising Physician Co-Signing Physician Notes I personally examined the patient and verified all osman points of history and exam, discussed case, and agree with decision making with Dr Boone. LLQ pain. felt essentially no better on ertapenem. notes that she has been told that she's bad enough with diverticulitis to warrant surgery but surgeons want her off steroids for at least 6wks, and removed from an active infection for a while in order to do it; she notes that's not been possible with her track record over the last year. vitals noted nad but fatigued and frustrated appearing. heent nc at [facility]. abd shows LLQ TTP no guarding no rebound no rigidity. CT noted recurrent/refractory diverticulitis -seems most likely anatomic issues -- immune deficiency could play a role but suspect this would just make it longer for her to get better/easier to get sick - not the reason she's constantly sick (silviano with just this as her focus of infection; doubt resistant bacteria as this is not often a problem with diverticulitis -- can test this with ?response to zosyn or not (if responds well could consider that she was just not getting better on ertapenem, but suspect that this will not be the case; ID consult to give opinion on the viability that it's a problem with the bacteria rather than with the host) -GI consult for ?other options, and to corroborate that she seems to have reached a point to consider surgery even if can't be perfectly optimized -she notes a surgeon at [place] willing to operate but only under above noted ideal conditions (other surgeons have noted they would operate only if she were in catastrophic condition)- but her track record suggests that ideal conditions are not likely realistic and given her ongoing infections, we'll reach a point where her overall risk/benefit as a human being needs to be considered with the risk of her continuing to have repeated bouts of diverticulitis requiring abx vs the risk of a surgery under [id number] conditions. she expresses a strong endorsement of this approach. because of this - if she fails to ipmrove on abx this admission - consider transfer to tertiary with goal of surgery now for failure to improve, vs if she improves consider close surgical follow up right after off abx to try to do procedure when she's as optimized as she'll likely get. otherwise as above PG Care Time/CCT Total # of Minutes Spent Total Time Spent with Patient: Total time spent is greater than 50% in coordination of care (as documented) at patient's floor/unit and/or counseling patient: Resident Activity Tracking Resident Involvement: Resident Care Provided Care Provided: Adult Hospital Medicine (1) Hypothyroidism Hypothyroidism type: unspecified Qualified Code(s): E03.9 - Hypothyroidism, unspecified (2) GERD (gastroesophageal reflux disease) Esophagitis presence: without esophagitis Qualified Code(s): K21.9 - Gastro- esophageal reflux disease without esophagitis (3) HTN (hypertension) Hypertension type: essential hypertension Qualified Code(s): I10 - Essential (primary) hypertension (4) Asthma Asthma complication type: unspecified Asthma persistence: unspecified Asthma severity: unspecified severity Qualified Code(s): J45.909 - Unspecified asthma, uncomplicated
[2019-05-05] MEDS: FLUTICASONE/SALMETEROL (ADVAIR) 500/50 INH 14 PUFF INH SCH ×2 (14:04→21:11)
[2019-05-05] MEDS: PANTOprazole 40 MG TAB PO SCH (14:05)
[2019-05-05] MEDS: PIPERACILLIN/TAZOBACTAM 3.375 GM in DEXTROSE 5% 100 ML IV SCH ×2 (14:05→22:01)
[2019-05-05] MEDS: METOCLOPRAMIDE HCL 5 MG TABLET PO SCH (14:06)
[2019-05-05] MEDS: POTASSIUM CHLORIDE 20 MEQ TABCR PO SCH ×2 (14:07→21:11)
[2019-05-05] MEDS: MoRPHine SULFATE 4 MG/ML 1 ML CARP\\VIAL IV PRN ×2 (15:47→21:59)
[2019-05-05] MEDS: SIMVASTATIN 20 MG TAB PO SCH (21:11)
[2019-05-06] MEDS: MoRPHine SULFATE 4 MG/ML 1 ML CARP\\VIAL IV PRN ×4 (05:25→22:25)
[2019-05-06] MEDS: SODIUM CHLORIDE 0.9% 1000ML 1,000 ML IV SCH ×3 (05:25→20:43)
[2019-05-06] MEDS: LEVOTHYROXINE SODIUM 50 MCG TABLET PO SCH (05:29)
[2019-05-06] MEDS: PIPERACILLIN/TAZOBACTAM 3.375 GM in DEXTROSE 5% 100 ML IV SCH ×2 (06:04→14:40)
[2019-05-06 07:15] LABS: Basophils # (auto) 0.02 K/uL (0-0.2); Basophils % (auto) 0.3 %; Eosinophils # (auto) 0.11 K/uL (0-0.5); Eosinophils % (auto) 1.8 %; Hematocrit (blood only) 33.2 % (37-47); Hemoglobin 10.4 g/dL (12.0-16.0); Immature Granulocytes # (auto) 0.02 K/uL (0.00-0.02); Immature Granulocytes % (auto) 0.3 %; Lymphocytes # (auto) 1.57 K/uL (1.2-3.4); Lymphocytes % (auto) 25.4 %; Mean Corpuscular Hemoglobin 25.8 pg (25-34); Mean Corpuscular Hgb Conc 31.3 g/dL (32-36); Mean Corpuscular Volume 82.4 fL (80-100); Mean Platelet Volume 10.1 fL (7.4-10.4); Monocytes # (auto) 0.81 K/uL (0.11-0.59); Monocytes % (auto) 13.1 %; Neutrophils # (auto) 3.64 K/uL (1.4-6.5); Neutrophils % (auto) 59.1 %; Platelet Count 250 K/uL (130-400); RDW Coefficient of Variation 18.7 % (11.5-14.5); RDW Standard Deviation 56.8 fL (36.4-46.3); Red Blood Count 4.03 M/uL (4.2-5.4); White Blood Count 6.17 K/uL (4.8-10.8)
[2019-05-06 07:48] LABS: BUN Creatinine Ratio 10.7 (10-20); Calcium 9.3 mg/dl (8.5-10.1); Creatinine Clr Calc Pharmacy 63.6 ml/min; Est GFR (African American) 79.3; Est GFR (Non-African American) 68.4; Potassium 3.5 mmol/L (3.5-5.1)
[2019-05-06] MEDS: POTASSIUM CHLORIDE 20 MEQ TABCR PO SCH ×2 (08:36→20:44)
[2019-05-06] MEDS: PANTOprazole 40 MG TAB PO SCH (08:36)
[2019-05-06] MEDS: METOCLOPRAMIDE HCL 5 MG TABLET PO SCH (08:36)
[2019-05-06] MEDS: FLUTICASONE/SALMETEROL (ADVAIR) 500/50 INH 14 PUFF INH SCH ×2 (08:36→20:44)
--- NOTE | 2019-05-06 11:26 | Infectious Disease Consult ---
Date of Consultation May 06, 2019 Assessment & Plan (1) Diverticulitis: continue abx, she has failed conservative therapy and would benefit from surgery, she will plan to follow with colorectal surgery. she would like to have zosyn at [facility], explained this can not be done due to tid dosing. will follow. History of Present Illness Attending Physician: Sg Roman DO pt admitted with abd pain, was recently admitted with same and was d/c on IV ertapenem, completed prior to admission but no clnical improvement, was not seen by ID during last hosptial stay but was seen prior for the same. She has had multiple recurrences of sigmoid diverticulitis but has declined surgical eval in the past. present during my exam. She is feeling better today, less pain, no n/v since admission but was having at home. on zosyn and tolerating well. no cultures done. afebrile no f/c at home. wbc 13 in Er, now 6. CT revealed diverticulosis and sigmoid diverticulitis. GI eval pending, states she may be willing to discuss surgical options with GI as she does not want any intervention done with general surgery, colorectal only. tolerating zosyn, no abd currently. no n/v. Allergies Allergy/AdvReac Type Severity Reaction Status Date / Time levofloxacin Allergy Severe Anaphylaxis Verified 05/05/19 08:40 aspirin Allergy Intermediate HIVES Verified 05/05/19 08:40 house dust Allergy Intermediate ASTHMA Verified 05/05/19 08:40 TRIGGER pollen extracts Allergy Intermediate SHORTNESS Verified 05/05/19 08:40 OF BREATH montelukast [From Singulair] Allergy Unknown Unknown Verified 05/05/19 08:40 erythromycin base AdvReac Intermediate NAUSEA, Verified 05/05/19 08:40 DRY HEAVES fluticasone AdvReac Mild DIZZINESS Verified 05/05/19 08:40 Home Medications Home Medications Medication Instructions Recorded Confirmed Type albuterol sulfate 2.5 mg INHALATION Q6H PRN 06/09/18 05/05/19 History cetirizine [Zyrtec] 10 mg PO QAM 06/09/18 05/05/19 History fludrocortisone 0.1 mg PO QAM 06/09/18 05/05/19 History fluticasone propion-salmeterol 1 inh INHALATION BID 06/09/18 05/05/19 History [Advair Diskus] levothyroxine 50 mcg PO QAM 06/09/18 05/05/19 History immune globulin,gamma(IgG)ifas 1 dose IV MONTHLY 09/08/18 05/05/19 History Ensure 1 - 2 can PO BID 10/28/18 05/05/19 History simvastatin 20 mg tablet 20 mg PO HS #90 tab 01/22/19 05/05/19 Rx triamcinolone acetonide 55 mcg 2 spray INTRANASAL QAM #16.9 ml 01/22/19 05/05/19 Rx nasal spray aerosol albuterol sulfate HFA 90 2 puff INHALATION Q4H PRN #1 02/22/19 05/05/19 Rx mcg/actuation aerosol inhaler inhaler monster (Zingiber officinalis) 0 mg PO DAILY 04/02/19 05/05/19 History ondansetron 4 mg PO Q6H PRN #12 tab 04/02/19 05/05/19 Rx potassium chloride [Klor-Con M20] 20 meq PO BID 04/02/19 05/05/19 History Probiotic 1 cap PO DAILY 04/18/19 05/05/19 History metoclopramide HCl 5 mg PO DAILY #30 tab 04/23/19 05/05/19 Rx oxycodone-acetaminophen 1 tab PO Q8H PRN #14 tab 04/23/19 05/05/19 Rx pantoprazole 40 mg PO QAM #30 tab 04/23/19 05/05/19 Rx Patient History Medical History Hypothyroidism (Acute) Diverticulosis (Acute) GERD (gastroesophageal reflux disease) HTN (hypertension) Asthma (Chronic) Common variable immunodeficiency Diverticulitis Hx of deep venous thrombosis (Resolved) Hx pulmonary embolism (Resolved) IBS (irritable bowel syndrome) Surgical History H/O shoulder surgery H/O vaginal surgery Correction History of total knee arthroplasty S/P vaginal hysterectomy Family History Grandmother Leukemia Stroke Mother Stroke Other Family history non-contributory Hypertension Tuberculosis Social History Preferred Language: Amharic Communication Ability: Effective Special Certificate Dictator Required: No Beliefs That Will Affect Care: None marital status: Current Living Situation: Spouse Other Information That Helps Us Care for You: No Feels Safe at Home: Yes Safety Concerns: Feels Safe At This Time Smoking Status: Former smoker Tobacco Type: cigarettes ; Do You Dip or Chew Tobacco: No ; Second Hand Exposure: Yes (childhood) ; Tobacco Cessation Education Requested by Patient: No Hx Alcohol Use: Yes (rarely) Alcohol type: wine Hx Substance Use: No Review of Systems Review of Systems: All systems reviewed & are unremarkable except as noted in HPI & below Physical Exam Constitutional: WD/WN, vitals as above Eyes: PERRL, conjunctivae normal, anicteric sclerae ENMT: external ear and nose normal, oropharynx normal Neck: normal visual inspection Respiratory: normal respiratory effort, lungs clear to auscultation Cardiovascular: RRR, no murmur, no edema Gastrointestinal (Abdomen): Inspection/Auscultation: abdomen normal to inspection and + abdomen distended Percussion/Palpation: + abdomen tender, + guarding and abdomen soft Musculoskeletal: no cyanosis or clubbing, extremities motor strength 5/5 Skin: no rashes, warm and dry Psychiatric: A+Ox3, euthymic affect Results & Data Vital Signs (Past 12 Hours) Vital Signs Temp Pulse Resp BP Pulse Ox 05/06/19 07:04 36.7 C 74 18 161/83 H 92 PG Care Time/CCT Total # of Minutes Spent Total Time Spent with Patient: Total time spent is greater than 50% in coordination of care (as documented) at patient's floor/unit and/or counseling patient:
--- NOTE | 2019-05-06 11:43 | Family Medicine Progress Note ---
Date of Service May 06, 2019 Assessment & Plan (1) Diverticulitis: 68 yo F with PMHx recurrent diverticulitis with multiple admissions, CVID, asthma, autonomic dysfunction, hypothyroidism, GERD presents for worsening diverticulitis/colitis despite completion of ertapenem IV antibiotic treatment outpatient. Diverticulitis/Colitis - Pt has continued inflammation of her colon suggesting worsening diverticulitis/colitis from prior visit. She has been admitted multiple times just this year for diverticulitis which before now has resolved with a longer course of antibiotics due to her immunodeficiency. - Now with WBC count of 13.54 from 10.19 on 04/23/19; also with a left shift suggestive of infectious process. Most likely etiology of infection is GI given symptoms and lack of urinary or respiratory symptoms. - Her most recent diverticulitis not only did not improve on outpatient ertapenem but got worse both clinically by the patient's symptoms and on CT Abdomen/Pelvis. - Have placed on Zosyn at this time in the event that her diverticulitis is resistant to ertapenem, though this seems unlikely. - Have consulted both Dr. Gross with GI and Dr. Jacobs with ID whose practices follow this patient and appreciate recommendations for best practices moving forward to prevent further recurrence of her diverticulitis. - Ultimately will likely need to involve surgery as it seems that her diverticulitis is resistant to medical management and her quality of life over a number of years now is severely decreased due to abdominal pain, nausea, and recurrent hospital stays as a direct result of her diverticulitis. 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 Hypothyroidism - Continue home levothyroxine 50mcg qAM. HTN - Has a history of syncope and is followed by Dr. Carbajal for autonomic dysfunction. - No recent presyncope, pt is running slightly hypertensive. HTN likely convoluted by abdominal pain. No symptoms such as dizziness, visual changes, CP, SOB. - Have hydralazine 10mg q4h PRN SBP >170 and will reevaulate HTN thorughout the day. Autonomic dysfunction - See HTN above Asthma - Pt without symptoms of SOB or wheezing at this time. - Will continue home Ventolin Q6H PRN SOB/wheezing, Advair Diskus BID scheduled. Hypokalemia - Potassium 3.4 today. - Continue home Potassium chloride 20meq PO BID. BMP AM. GERD - pt without symptoms of reflux at this time. - Continue home pantoprazole 40mg qAM. HLD - Continue home simvastatin 20mg daily. (2) Colitis: (3) Common variable hypogammaglobulinemia: (4) Autonomic dysfunction: (5) Hypothyroidism: (6) HTN (hypertension): (7) Asthma: (8) Hypokalemia: (9) Dyslipidemia: (10) GERD (gastroesophageal reflux disease): Supervising Physician Co-Signing Physician Notes I saw the patient currently a resident physician and confirmed osman portion of the history of physical exam. Agree with the impression and plan as noted in t he resident documentation. When we saw the patient this morning, she reported that she was feeling better compared to yesterday. The patient's was bedside and agreed with this assessment. Her leukocytosis has resolved. She remains afebrile. Imaging completed yesterday demonstrates moderate colonic diverticulosis with an at least 10 cm segment of thick-walled sigmoid colon with surrounding inflammation and trace fluid, which is worsened when compared to CT scan of April 18, 2019. Acute on chronic diverticulitis Clinical improvement since switched to Zosyn (previously on panel) Infectious disease and gastric chronic consultations appreciated General consensus of providers and patient is that surgery is indicated -this has been discussed previously -although optimal conditions (free of infections and steroids for extended period of time) has not been able to be realized. Question now is a risk-benefit discussion in what risk are we willing to under take in terms of pursuing surgery without meeting the previously documented criteria. Subjective Pt feels considerably better this morning when she is not moving around, her abdomen does not hurt nearly as much as if she moves or needs to go to the bathroom; her pain is unchanged from baseline during these times. Has some hunger and would like to attempt to eat some meals to see if she is truly feeling better at this time; after discussions with her Instructional Leader she knows she needs the surgery in order to fully start the process of feeling better as the symptoms have recurred several times over the last 6-7 years. Review of Systems Constitutional: + fatigue; no fever, no chills and no sweats Respiratory: no cough, no dyspnea and no wheezing Cardiovascular: no chest pain, no dyspnea and no palpitations Gastrointestinal: + abdominal pain; no bloating, no nausea, no vomiting and no change in bowel habits Physical Exam Constitutional: well developed and well nourished Eyes: PERRL, conjunctivae normal, anicteric sclerae Respiratory: normal respiratory effort, lungs clear to auscultation Cardiovascular: RRR, no murmur, no edema Gastrointestinal (Abdomen): Percussion/Palpation: + abdomen tender, + guarding and abdomen soft; abdomen not rigid Results & Data Vital Signs (Past 12 Hours) Vital Signs Temp Pulse Resp BP Pulse Ox 05/06/19 07:04 36.7 C 74 18 161/83 H 92 Laboratory Results 05/06/19 05/06/19 05/06/19 Range/Units 06:56 06:56 06:56 WBC 6.17 (4.8-10.8) K/uL RBC 4.03 L (4.2-5.4) M/uL Hgb 10.4 L (12.0-16.0) g/dL Hct 33.2 L (37-47) % MCV 82.4 (80-100) fL MCH 25.8 (25-34) pg MCHC 31.3 L (32-36) g/dL RDW Std Deviation 56.8 H (36.4-46.3) fL RDW Coeff of Mandeep 18.7 H (11.5-14.5) % Plt Count 250 (130-400) K/uL MPV 10.1 (7.4-10.4) fL Immature Gran % (Auto) 0.3 % Neut % (Auto) 59.1 % Lymph % (Auto) 25.4 % Levy % (Auto) 13.1 % Eos % (Auto) 1.8 % Baso % (Auto) 0.3 % Immature Gran # (Auto) 0.02 (0.00-0.02) K/uL Neut # (Auto) 3.64 (1.4-6.5) K/uL Lymph # (Auto) 1.57 (1.2-3.4) K/uL Levy # (Auto) 0.81 H (0.11-0.59) K/uL Eos # (Auto) 0.11 (0-0.5) K/uL Baso # (Auto) 0.02 (0-0.2) K/uL Sodium 141 (136-145) mmol/L Potassium 3.5 (3.5-5.1) mmol/L Chloride 111 H (98-107) mmol/L Carbon Dioxide 25 (21-32) mmol/L Anion Gap 4.0 (3-11) BUN 9 (7-18) mg/dl Creatinine 0.86 (0.6-1.2) mg/dl Est Cr Clr Drug Dosing 63.6 ml/min Est GFR ( Amer) 79.3 Est GFR (Non-Af Amer) 68.4 BUN/Creatinine Ratio 10.7 (10-20) Glucose 101 H (70-99) mg/dl Calcium 9.3 (8.5-10.1) mg/dl Hepatitis C Ab Screen Neg (Neg) Medications Administered Current Inpatient Medications Acetaminophen (Tylenol) 650 mg PO Q4H PRN PRN Reason: pain/fever Stop: 06/04/19 12:58 Al Hydrox/Mg Hydrox/Simethicone (Maalox) 30 ml PO Q6H PRN PRN Reason: Dyspepsia Stop: 06/04/19 12:58 Albuterol (Ventolin 0.083% 2.5mg/3ml) 2.5 mg INH Q6H PRN PRN Reason: Shortness Of Breath Stop: 06/04/19 12:58 Heparin Sodium (Porcine) (Heparin Sod 100 Unit/Ml Flush) 5 ml FLUSH PRN PRN PRN Reason: Flush Stop: 06/05/19 00:14 Hydralazine HCl (Apresoline) 10 mg PO Q4H PRN PRN Reason: SBP >170 Stop: 06/04/19 12:58 Sodium Chloride (Nss 1000ml) 1,000 mls @ 125 mls/hr IV .Q8H KAREN Stop: 06/04/19 06:44 Last Admin: 05/06/19 13:20 Dose: 125 mls/hr Documented by: Piperacillin Sod/Tazobactam (Sod 3.375 gm/ Dextrose) 115 mls @ 28.75 mls/hr IV Q8H [facility]; Protocol Stop: 05/15/19 14:59 Last Infusion: 05/06/19 10:32 Dose: Infused Documented by: Levothyroxine Sodium (Synthroid) 50 mcg PO DAILYBB [facility] Stop: 06/05/19 06:29 Last Admin: 05/06/19 05:29 Dose: 50 mcg Documented by: Magnesium Hydroxide (Milk Of Magnesia) 30 ml PO Q6H PRN PRN Reason: Constipation Stop: 06/04/19 12:58 Metoclopramide HCl (Reglan) 5 mg PO DAILY KAREN Stop: 06/04/19 12:58 Last Admin: 05/06/19 08:36 Dose: 5 mg Documented by: Miscellaneous Information (Consult) 1 ea N/A UD PRN PRN Reason: Consult Stop: 06/04/19 09:18 Morphine Sulfate (Morphine Sulfate) 4 mg IV Q4H PRN PRN Reason: Pain Stop: 05/19/19 14:40 Last Admin: 05/06/19 10:34 Dose: 4 mg Documented by: Ondansetron HCl (Zofran Odt) 4 mg PO Q6H PRN PRN Reason: nausea and vomiting Stop: 06/04/19 12:58 Pantoprazole Sodium (Protonix) 40 mg PO QAM [facility] Stop: 06/04/19 12:58 Last Admin: 05/06/19 08:36 Dose: 40 mg Documented by: Polyethylene Glycol (Miralax Powder Packet) 17 gm PO DAILY PRN PRN Reason: Constipation Stop: 06/04/19 12:58 Potassium Chloride (Klor-Con M20) 20 meq PO BID KAREN Stop: 06/04/19 12:58 Last Admin: 05/06/19 08:36 Dose: 20 meq Documented by: Fluticasone/Salmeterol (Advair Diskus 500/50) 1 puffs INH BID KAREN Stop: 06/04/19 12:58 Last Admin: 05/06/19 08:36 Dose: 1 puffs Documented by: Simvastatin (Zocor) 20 mg PO HS [facility] Stop: 06/04/19 20:59 Last Admin: 05/05/19 21:11 Dose: 20 mg Documented by: PG Care Time/CCT Total # of Minutes Spent Total Time Spent with Patient: Total time spent is greater than 50% in coordination of care (as documented) at patient's floor/unit and/or counseling patient: Resident Activity Tracking Resident Involvement: Resident Care Provided Care Provided: Adult [facility] Medicine (1) Hypothyroidism Hypothyroidism type: unspecified Qualified Code(s): E03.9 - Hypothyroidism, unspecified (2) GERD (gastroesophageal reflux disease) Esophagitis presence: without esophagitis Qualified Code(s): K21.9 - Gastro- esophageal reflux disease without esophagitis (3) HTN (hypertension) Hypertension type: essential hypertension Qualified Code(s): I10 - Essential (primary) hypertension (4) Asthma Asthma complication type: unspecified Asthma persistence: unspecified Asthma severity: unspecified severity Qualified Code(s): J45.909 - Unspecified asthma, uncomplicated
--- NOTE | 2019-05-06 16:25 | Consultation Report ---
DATE OF CONSULTATION: 05/06/2019 GASTROINTESTINAL CONSULT NOTE REASON FOR EVALUATION: Recurrent diverticulitis. HISTORY OF PRESENT ILLNESS: The patient is a 68-year-old with recurrent bouts of diverticulitis with several bouts over the last couple of years requiring hospitalizations and outpatient treatment with antibiotics. She has had some adverse reaction to several different antibiotics and has been treated with ertapenem most recently. She is to get started on this in the hospital, then has a central line placed and has it done as an outpatient once a day until she completes her course. The patient was recently hospitalized for a bout of diverticulitis and was completing her course of ertapenem as an outpatient, but it was actually getting worse as far as abdominal pain. She presented back to the hospital because of increased abdominal pain and was found on CT scan to have worsening diverticulitis involving about 10 inches of sigmoid with thickened colon and inflammation surrounding it. There was no obvious abscess. Her white count was over 13,000 on admission, which was up from her last admission. She was started on Zosyn and within 24 hours, her white count has returned to normal and the pain in her abdomen is improving significantly. The patient was seeing a surgeon at [facility] about having a sigmoid resection, but it keeps getting deferred because of her common variable immunodeficiency and her need to take steroids periodically for asthma flareups compromising her ability to heal and prevent infection. Despite this, her diverticulitis has been more of a problem as far as her lifestyle and she has had multiple episodes and required hospitalizations and outpatient antibiotics and she is finally at the point where she is willing to consider getting it done regardless of the risks. She at this point would prefer to revisit [facility] rather than going to [facility]. PAST MEDICAL HISTORY: Remarkable for recurrent diverticulitis, common variable immunodeficiency, hypothyroidism, asthma, hypertension, autonomic dysfunction, esophageal reflux, hyperlipidemia. MEDICATIONS: Per list. ALLERGIES: LEVOFLOXACIN, ASPIRIN, DUST, POLLEN, SINGULAIR, ERYTHROMYCIN, AND FLUTICASONE. FAMILY HISTORY: Mother had a stroke. Father none known. SOCIAL HISTORY: The patient is . Former smoker, not smoking currently. She does drink alcohol rarely in the form of wine. REVIEW OF SYSTEMS: Positive for fatigue, abdominal pain, some nausea. PHYSICAL EXAMINATION: GENERAL: The patient is overweight, in no acute distress. VITAL SIGNS: Blood pressure is 147/85, pulse 69. She is afebrile. ABDOMEN: It is protuberant. There is a little bit of tenderness in the left lower quadrant. No mass or rebound. IMPRESSION AND PLAN: The patient has recurrent bouts of diverticulitis. Her clinical situation is compounded by the fact that she has common variable immunodeficiency as well as intermittent use of steroids for asthma making the decision about surgical resection complicated. I plan on talking to Dr. Miguel Santizo at [facility] who is the Head of Colorectal Surgery to get his opinion about the feasibility and timing of surgery, she may need to have a resection and a diverting ileostomy to help heal any kind of surgical intervention, but obviously that is a decision for the surgeons to make. I will try to reach him tomorrow and report back after that.
--- NOTE | 2019-05-06 18:56 | Surgery Consultation ---
Date of Consultation May 06, 2019 Assessment & Plan (1) Diverticulitis: This patient has recurrent diverticulitis. There is no evidence of diffuse peritonitis, abscess or free air. The Zosyn seems to be helping with her symptoms and hopefully with the inflammation. She wishes to have surgery at a tertiary care center and I agree with that. There is no evidence for immediate surgical intervention or emergent transfer. History of Present Illness Reason for Consultation: Recurrent diverticulitis Requesting Physician: Jorgito Martel DO Attending Physician: Jorgito Martel DO History of Present Illness I been asked by Dr. Ramirez to see this 68-year-old female who has a long history of recurrent diverticulitis. She was admitted last week. Oral antibiotics are difficult for her to tolerate and she was placed on ertapenem. Her symptoms seem to exacerbate and increased. She was readmitted with diverticulitis. She has been placed on Zosyn and has had some improvement in her symptoms. She has been immunocompromised. She was evaluated she said in [place] for an elective sigmoid resection but was felt to be too high risk. She was then evaluated at [facility] and this was offered to her but she had to meet certain criteria that she has not been able to meet. She stated that she does not want surgery locally. She also wants a colorectal surgeon and not a general surgeon. Allergies Allergy/AdvReac Type Severity Reaction Status Date / Time levofloxacin Allergy Severe Anaphylaxis Verified 05/05/19 08:40 aspirin Allergy Intermediate HIVES Verified 05/05/19 08:40 house dust Allergy Intermediate ASTHMA Verified 05/05/19 08:40 TRIGGER pollen extracts Allergy Intermediate SHORTNESS Verified 05/05/19 08:40 OF BREATH montelukast [From Singulair] Allergy Unknown Unknown Verified 05/05/19 08:40 erythromycin base AdvReac Intermediate NAUSEA, Verified 05/05/19 08:40 DRY HEAVES fluticasone AdvReac Mild DIZZINESS Verified 05/05/19 08:40 Home Medications Home Medications Medication Instructions Recorded Confirmed Type albuterol sulfate 2.5 mg INHALATION Q6H PRN 06/09/18 05/05/19 History cetirizine [Zyrtec] 10 mg PO QAM 06/09/18 05/05/19 History fludrocortisone 0.1 mg PO QAM 06/09/18 05/05/19 History fluticasone propion-salmeterol 1 inh INHALATION BID 06/09/18 05/05/19 History [Advair Diskus] levothyroxine 50 mcg PO QAM 06/09/18 05/05/19 History immune globulin,gamma(IgG)ifas 1 dose IV MONTHLY 09/08/18 05/05/19 History Ensure 1 - 2 can PO BID 10/28/18 05/05/19 History simvastatin 20 mg tablet 20 mg PO HS #90 tab 01/22/19 05/05/19 Rx triamcinolone acetonide 55 mcg 2 spray INTRANASAL QAM #16.9 ml 01/22/19 05/05/19 Rx nasal spray aerosol albuterol sulfate HFA 90 2 puff INHALATION Q4H PRN #1 02/22/19 05/05/19 Rx mcg/actuation aerosol inhaler inhaler monster (Zingiber officinalis) 0 mg PO DAILY 04/02/19 05/05/19 History ondansetron 4 mg PO Q6H PRN #12 tab 04/02/19 05/05/19 Rx potassium chloride [Klor-Con M20] 20 meq PO BID 04/02/19 05/05/19 History Probiotic 1 cap PO DAILY 04/18/19 05/05/19 History metoclopramide HCl 5 mg PO DAILY #30 tab 04/23/19 05/05/19 Rx oxycodone-acetaminophen 1 tab PO Q8H PRN #14 tab 04/23/19 05/05/19 Rx pantoprazole 40 mg PO QAM #30 tab 04/23/19 05/05/19 Rx Patient History Medical History Hypothyroidism (Acute) Diverticulosis (Acute) GERD (gastroesophageal reflux disease) HTN (hypertension) Asthma (Chronic) Common variable immunodeficiency Diverticulitis Hx of deep venous thrombosis (Resolved) Hx pulmonary embolism (Resolved) IBS (irritable bowel syndrome) Surgical History H/O shoulder surgery H/O vaginal surgery Correction History of total knee arthroplasty S/P vaginal hysterectomy Family History Grandmother Leukemia Stroke Mother Stroke Other Family history non-contributory Hypertension Tuberculosis Social History Preferred Language: Uzbek Communication Ability: Effective Commercial Intern Required: No Beliefs That Will Affect Care: None marital status: Current Living Situation: Spouse Other Information That Helps Us Care for You: No Feels Safe at Home: Yes Safety Concerns: Feels Safe At This Time Smoking Status: Former smoker Tobacco Type: cigarettes ; Do You Dip or Chew Tobacco: No ; Second Hand Exposure: Yes (childhood) ; Tobacco Cessation Education Requested by Patient: No Hx Alcohol Use: Yes (rarely) Alcohol type: wine Hx Substance Use: No Physical Exam Constitutional: no acute distress Respiratory: normal respiratory effort Auscultation: + rhonchi (Scattered) Cardiovascular: Rate/Rhythm: regular rate and regular rhythm Gastrointestinal (Abdomen): Inspection/Auscultation: abdomen not distended Percussion/Palpation: + abdomen tender (Mostly left lower quadrant with some r eferred tenderness from the right lower quadrant), + guarding and abdomen soft Results & Data Vital Signs (Past 12 Hours) Vital Signs Temp Pulse Resp BP Pulse Ox 05/06/19 15:46 85 17 179/95 H 95 05/06/19 07:04 36.7 C 74 18 161/83 H 92
[2019-05-06] MEDS: SIMVASTATIN 20 MG TAB PO SCH (20:44)
[2019-05-06] MEDS: PIPERACILLIN/TAZOBACTAM 4.5 GM in DEXTROSE 5% 100 ML IV SCH (22:25)
[2019-05-07] MEDS: MoRPHine SULFATE 4 MG/ML 1 ML CARP\\VIAL IV PRN (02:43)
[2019-05-07] MEDS: SODIUM CHLORIDE 0.9% 1000ML 1,000 ML IV SCH ×3 (04:41→20:42)
[2019-05-07 05:17] LABS: Basophils # (auto) 0.02 K/uL (0-0.2); Basophils % (auto) 0.3 %; Eosinophils # (auto) 0.18 K/uL (0-0.5); Eosinophils % (auto) 2.6 %; Hematocrit (blood only) 34.2 % (37-47); Hemoglobin 10.6 g/dL (12.0-16.0); Immature Granulocytes # (auto) 0.02 K/uL (0.00-0.02); Immature Granulocytes % (auto) 0.3 %; Lymphocytes # (auto) 1.65 K/uL (1.2-3.4); Mean Corpuscular Hemoglobin 25.5 pg (25-34); Mean Corpuscular Volume 82.4 fL (80-100); Mean Platelet Volume 11.3 fL (7.4-10.4); Monocytes # (auto) 0.75 K/uL (0.11-0.59); Monocytes % (auto) 10.9 %; Neutrophils # (auto) 4.26 K/uL (1.4-6.5); Neutrophils % (auto) 61.9 %; Platelet Count 270 K/uL (130-400); RDW Coefficient of Variation 18.4 % (11.5-14.5); RDW Standard Deviation 55.9 fL (36.4-46.3); Red Blood Count 4.15 M/uL (4.2-5.4); White Blood Count 6.88 K/uL (4.8-10.8)
[2019-05-07 05:48] LABS: BUN Creatinine Ratio 7.3 (10-20); Calcium 9.4 mg/dl (8.5-10.1); Creatinine Clr Calc Pharmacy 67.5 ml/min; Est GFR (African American) 85.3; Est GFR (Non-African American) 73.6; Potassium 3.6 mmol/L (3.5-5.1)
[2019-05-07] MEDS: LEVOTHYROXINE SODIUM 50 MCG TABLET PO SCH (05:57)
[2019-05-07] MEDS: PIPERACILLIN/TAZOBACTAM 4.5 GM in DEXTROSE 5% 100 ML IV SCH ×3 (05:57→21:49)
[2019-05-07] MEDS: MoRPHine SULFATE 2 MG/ML CARP IV PRN ×3 (08:35→19:55)
[2019-05-07] MEDS: FLUTICASONE/SALMETEROL (ADVAIR) 500/50 INH 14 PUFF INH SCH ×2 (08:35→20:42)
[2019-05-07] MEDS: POTASSIUM CHLORIDE 20 MEQ TABCR PO SCH ×2 (08:36→20:42)
[2019-05-07] MEDS: PANTOprazole 40 MG TAB PO SCH (08:36)
[2019-05-07] MEDS: METOCLOPRAMIDE HCL 5 MG TABLET PO SCH (08:36)
--- NOTE | 2019-05-07 10:38 | Hospitalist Progress Note ---
Date of Service May 07, 2019 Assessment & Plan (1) Diverticulitis: 68 yo F with PMHx recurrent diverticulitis with multiple admissions, CVID, asthma, autonomic dysfunction, hypothyroidism, GERD presents for worsening diverticulitis/colitis despite completion of ertapenem IV antibiotic treatment outpatient. Diverticulitis/Colitis - Pt has continued inflammation of her colon suggesting worsening diverticulitis/colitis from prior visit. She has been admitted multiple times just this year for diverticulitis which before now has resolved with a longer course of antibiotics due to her immunodeficiency. - Now with WBC count of 13.54 from 10.19 on 04/23/19; also with a left shift suggestive of infectious process. Most likely etiology of infection is GI given symptoms and lack of urinary or respiratory symptoms. - Her most recent diverticulitis not only did not improve on outpatient ertapenem but got worse both clinically by the patient's symptoms and on CT Abdomen/Pelvis. - Have placed on Zosyn at this time in the event that her diverticulitis is resistant to ertapenem, though this seems unlikely. - Have consulted both Dr. Gross with GI and Dr. Jacobs with ID whose practices follow this patient and appreciate recommendations for best practices moving forward to prevent further recurrence of her diverticulitis. -Will need to continue conversations on best optimization of her diverticulitis and overall condition of patient in order for her to be eligible to get surgery in [place] CVID - Diagnosed with common variable immunodeficiency and receives IVIG through her left sided chest port once monthly. Hypothyroidism - Continue home levothyroxine 50mcg qAM. HTN - Has a history of syncope and is followed by Dr. Carbajal for autonomic dysfunction. - No recent presyncope, pt is running slightly hypertensive. HTN likely convoluted by abdominal pain. No symptoms such as dizziness, visual changes, CP, SOB. - Have hydralazine 10mg q4h PRN SBP >170 and will reevaulate HTN thorughout the day. Autonomic dysfunction - See HTN above Asthma - Pt without symptoms of SOB or wheezing at this time. - Will continue home Ventolin Q6H PRN SOB/wheezing, Advair Diskus BID scheduled. Hypokalemia - Potassium 3.4 today. - Continue home Potassium chloride 20meq PO BID. BMP AM. GERD - pt without symptoms of reflux at this time. - Continue home pantoprazole 40mg qAM. HLD - Continue home simvastatin 20mg daily. (2) Colitis: (3) Common variable hypogammaglobulinemia: (4) Autonomic dysfunction: (5) Hypothyroidism: (6) HTN (hypertension): (7) Asthma: (8) Hypokalemia: (9) Dyslipidemia: (10) GERD (gastroesophageal reflux disease): Supervising Physician Co-Signing Physician Notes I saw the patient currently a resident physician and confirmed osman portion of the history of physical exam. I also discussed the case with gastroenterology and general surgery. Agree with the impression and plan as noted in the resident documentation. This afternoon the patient still has some abdominal tenderness but the pain and tenderness is less compared to admission. She tolerated some elements of a liquid diet -she had no problems with the Jell-O but states the broth was too salty for her taste. White blood cell count is 6.88. She remains afebrile. BMP is unremarkable. Acute on chronic diverticulitis Clinical improvement since switched to Zosyn (previously on ertapenem) Infectious disease and gastric chronic consultations appreciated Consensus is that she will need 14 days of antibiotics, but that when he discuss with ID logistics of such and if this keeps her in the hospital or if can be done at home. At present she is not well enough for discharge regardless; will need to see her have continued clinical improvement in terms of pain and tenderness as well as better tolerate p.o. Subjective Pt still having abdominal pain and discomfort this morning, especially when having bowel movements, or when moving around in the room overnight. Was able to tolerate small amounts of fluids overnight without nausea or vomiting. Feels like she is improving with the antibiotics at this time as it is nowhere near as bad as she was this weekend, but would like the surgery to happen as she is well aware this is the only long-term solution for this chronic problem. Review of Systems Constitutional: + fatigue; no fever, no chills and no sweats Gastrointestinal: + abdominal pain; no bloating, no nausea, no vomiting and no change in bowel habits Physical Exam Constitutional: well developed and well nourished Respiratory: normal respiratory effort, lungs clear to auscultation Cardiovascular: RRR, no murmur, no edema Gastrointestinal (Abdomen): Percussion/Palpation: + abdomen tender, + guarding and abdomen soft; abdomen not rigid Results & Data Vital Signs (Past 12 Hours) Vital Signs Temp Pulse Pulse Resp BP Pulse Ox 05/07/19 07:46 37.1 C 75 17 161/90 H 92 05/06/19 23:00 37.2 C 86 16 160/84 H 92 Laboratory Results 05/07/19 05/07/19 Range/Units 04:53 04:53 WBC 6.88 (4.8-10.8) K/uL RBC 4.15 L (4.2-5.4) M/uL Hgb 10.6 L (12.0-16.0) g/dL Hct 34.2 L (37-47) % MCV 82.4 (80-100) fL MCH 25.5 (25-34) pg MCHC 31.0 L (32-36) g/dL RDW Std Deviation 55.9 H (36.4-46.3) fL RDW Coeff of Mandeep 18.4 H (11.5-14.5) % Plt Count 270 (130-400) K/uL MPV 11.3 H (7.4-10.4) fL Immature Gran % (Auto) 0.3 % Neut % (Auto) 61.9 % Lymph % (Auto) 24.0 % [place] % (Auto) 10.9 % Eos % (Auto) 2.6 % Baso % (Auto) 0.3 % Immature Gran # (Auto) 0.02 (0.00-0.02) K/uL Neut # (Auto) 4.26 (1.4-6.5) K/uL Lymph # (Auto) 1.65 (1.2-3.4) K/uL [place] # (Auto) 0.75 H (0.11-0.59) K/uL Eos # (Auto) 0.18 (0-0.5) K/uL Baso # (Auto) 0.02 (0-0.2) K/uL Sodium 141 (136-145) mmol/L Potassium 3.6 (3.5-5.1) mmol/L Chloride 111 H (98-107) mmol/L Carbon Dioxide 23 (21-32) mmol/L Anion Gap 7.0 (3-11) BUN 6 L (7-18) mg/dl Creatinine 0.81 (0.6-1.2) mg/dl Est Cr Clr Drug Dosing 67.5 ml/min Est GFR ( Amer) 85.3 Est GFR (Non-Af Amer) 73.6 BUN/Creatinine Ratio 7.3 L (10-20) Glucose 106 H (70-99) mg/dl Calcium 9.4 (8.5-10.1) mg/dl Magnesium 2.0 (1.8-2.4) mg/dl Medications Administered Current Inpatient Medications Acetaminophen (Tylenol) 650 mg PO Q4H PRN PRN Reason: pain/fever Stop: 06/04/19 12:58 Al Hydrox/Mg Hydrox/Simethicone (Maalox) 30 ml PO Q6H PRN PRN Reason: Dyspepsia Stop: 06/04/19 12:58 Albuterol (Ventolin 0.083% 2.5mg/3ml) 2.5 mg INH Q6H PRN PRN Reason: Shortness Of Breath Stop: 06/04/19 12:58 Heparin Sodium (Porcine) (Heparin Sod 100 Unit/Ml Flush) 5 ml FLUSH PRN PRN PRN Reason: Flush Stop: 06/05/19 00:14 Hydralazine HCl (Apresoline) 10 mg PO Q4H PRN PRN Reason: SBP >170 Stop: 06/04/19 12:58 Sodium Chloride (Nss 1000ml) 1,000 mls @ 125 mls/hr IV .Q8H [facility] Stop: 06/04/19 06:44 Last Infusion: 05/07/19 06:21 Dose: 125 mls/hr Documented by: Piperacillin Sod/Tazobactam (Sod 4.5 gm/ Dextrose) 120 mls @ 30 mls/hr IV Q8H [facility]; Protocol Stop: 05/15/19 14:59 Last Infusion: 05/07/19 10:22 Dose: Infused Documented by: Levothyroxine Sodium (Synthroid) 50 mcg PO DAILYBB [facility] Stop: 06/05/19 06:29 Last Admin: 05/07/19 05:57 Dose: 50 mcg Documented by: Magnesium Hydroxide (Milk Of Magnesia) 30 ml PO Q6H PRN PRN Reason: Constipation Stop: 06/04/19 12:58 Metoclopramide HCl (Reglan) 5 mg PO DAILY [facility] Stop: 06/04/19 12:58 Last Admin: 05/07/19 08:36 Dose: 5 mg Documented by: Miscellaneous Information (Consult) 1 ea N/A UD PRN PRN Reason: Consult Stop: 06/04/19 09:18 Morphine Sulfate (Morphine Sulfate) 2 mg IV Q4H PRN PRN Reason: Pain Stop: 05/19/19 14:40 Last Admin: 05/07/19 08:35 Dose: 2 mg Documented by: Ondansetron HCl (Zofran Odt) 4 mg PO Q6H PRN PRN Reason: nausea and vomiting Stop: 06/04/19 12:58 Pantoprazole Sodium (Protonix) 40 mg PO QAM [facility] Stop: 06/04/19 12:58 Last Admin: 05/07/19 08:36 Dose: 40 mg Documented by: Polyethylene Glycol (Miralax Powder Packet) 17 gm PO DAILY PRN PRN Reason: Constipation Stop: 06/04/19 12:58 Potassium Chloride (Klor-Con M20) 20 meq PO BID [facility] Stop: 06/04/19 12:58 Last Admin: 05/07/19 08:36 Dose: 20 meq Documented by: Fluticasone/Salmeterol (Advair Diskus 500/50) 1 puffs INH BID [facility] Stop: 06/04/19 12:58 Last Admin: 05/07/19 08:35 Dose: 1 puffs Documented by: Simvastatin (Zocor) 20 mg PO HS [facility] Stop: 06/04/19 20:59 Last Admin: 05/06/19 20:44 Dose: 20 mg Documented by: PG Care Time/CCT Total # of Minutes Spent Total Time Spent with Patient: Total time spent is greater than 50% in coordination of care (as documented) at patient's floor/unit and/or counseling patient: Resident Activity Tracking Resident Involvement: Resident Care Provided Care Provided: Adult Hospital Medicine (1) Hypothyroidism Hypothyroidism type: unspecified Qualified Code(s): E03.9 - Hypothyroidism, unspecified (2) GERD (gastroesophageal reflux disease) Esophagitis presence: without esophagitis Qualified Code(s): K21.9 - Gastro- esophageal reflux disease without esophagitis (3) HTN (hypertension) Hypertension type: essential hypertension Qualified Code(s): I10 - Essential (primary) hypertension (4) Asthma Asthma complication type: unspecified Asthma persistence: unspecified Asthma severity: unspecified severity Qualified Code(s): J45.909 - Unspecified asthma, uncomplicated
[2019-05-07] MEDS: ALUMINUM/MAGNESIUM SUSP 30 ML UDC PO PRN (12:26)
--- NOTE | 2019-05-07 14:38 | Infectious Disease Progress Nt ---
Date of Service May 07, 2019 Assessment & Plan (1) Diverticulitis: continue abx, she has failed conservative therapy and would benefit from surgery, she will plan to follow with colorectal surgery. she would like to have zosyn at [facility], explained this can not be done due to tid dosing. would suggest 14 days IV abx with zosyn. will need surgery eval in near future if no plans for intervention here due to recurrent episodes over last several months. Subjective pt remains on zosyn, tolerating well. wbc improved, afebrile. no micro to review. s/p GI and surgery eval, will consider surgery eval at [facility] with colorectal surgery, no plans for surgical intervention at this time. Results & Data Vital Signs (Past 12 Hours) Vital Signs Temp Pulse Resp BP Pulse Ox 05/07/19 07:46 37.1 C 75 17 161/90 H 92 PG Care Time/CCT Total # of Minutes Spent Total Time Spent with Patient: Total time spent is greater than 50% in coordination of care (as documented) at patient's floor/unit and/or counseling patient:
--- NOTE | 2019-05-07 15:59 | Progress Note ---
DATE: 05/07/2019 SUBJECTIVE: Patient is now day #2 on Zosyn. Her abdominal pain is starting to diminish and her white count has returned to normal. She is being advanced to full liquids today. OBJECTIVE VITAL SIGNS: Blood pressure is 161/90, pulse 75, temperature is 37.1, O2 sat 92%. ABDOMEN: Obese. There is some tenderness in the left lower quadrant to medium palpation. Internal organs were not palpable due to her body habitus. IMPRESSION: The patient has recurrent diverticulitis which is responding to Zosyn. I had a discussion with Dr. Rodriguez, a colorectal surgeon from [place], today concerning her condition and he agreed that surgical intervention is indicated and they are willing to take on her case at [place], but she will need to be seen as an outpatient first. Once her acute episode here resolves whether it is an inpatient or an outpatient, completion of her 14 days of Zosyn. She will probably need to get IVIG prior to any kind of surgical intervention due to her common variable immunodeficiency and her asthma will need to be optimized as well and hopefully without steroids if possible. The next step is to figure out whether she is able to get her 3 times a day IV antibiotics as an outpatient or whether she is going to need to spend 14 days in the hospital to complete her course. If she does go home and get outpatient antibiotics, then we can arrange for her to be seen in the [facility] as an outpatient during her treatment so that plans can be placed for surgery without further delay once she is optimized. We will continue to follow the patient during her hospital stay. ALBIN
[2019-05-07] MEDS: ENOXAPARIN INJ 40 MG/0.4 ML SYR SQ SCH (19:56)
[2019-05-07] MEDS: SIMVASTATIN 20 MG TAB PO SCH (20:42)
[2019-05-08] MEDS: ALUMINUM/MAGNESIUM SUSP 30 ML UDC PO PRN (03:06)
[2019-05-08] MEDS: SODIUM CHLORIDE 0.9% 1000ML 1,000 ML IV SCH ×3 (05:03→21:36)
[2019-05-08] MEDS: ONDANSETRON 4 MG OD TAB PO PRN ×2 (05:05→22:07)
[2019-05-08] MEDS: LEVOTHYROXINE SODIUM 50 MCG TABLET PO SCH (06:00)
[2019-05-08] MEDS: PIPERACILLIN/TAZOBACTAM 4.5 GM in DEXTROSE 5% 100 ML IV SCH ×3 (06:00→21:36)
[2019-05-08 07:45] LABS: Basophils # (auto) 0.02 K/uL (0-0.2); Basophils % (auto) 0.3 %; Eosinophils # (auto) 0.17 K/uL (0-0.5); Eosinophils % (auto) 2.6 %; Hematocrit (blood only) 35.3 % (37-47); Immature Granulocytes # (auto) 0.01 K/uL (0.00-0.02); Immature Granulocytes % (auto) 0.2 %; Lymphocytes # (auto) 1.66 K/uL (1.2-3.4); Lymphocytes % (auto) 25.3 %; Mean Corpuscular Hemoglobin 25.5 pg (25-34); Mean Corpuscular Hgb Conc 31.2 g/dL (32-36); Mean Corpuscular Volume 81.7 fL (80-100); Mean Platelet Volume 11.2 fL (7.4-10.4); Monocytes # (auto) 0.78 K/uL (0.11-0.59); Monocytes % (auto) 11.9 %; Neutrophils # (auto) 3.92 K/uL (1.4-6.5); Neutrophils % (auto) 59.7 %; Platelet Count 268 K/uL (130-400); RDW Coefficient of Variation 18.2 % (11.5-14.5); RDW Standard Deviation 54.5 fL (36.4-46.3); Red Blood Count 4.32 M/uL (4.2-5.4); White Blood Count 6.56 K/uL (4.8-10.8)
[2019-05-08] MEDS: MoRPHine SULFATE 2 MG/ML CARP IV PRN (08:14)
[2019-05-08] MEDS: METOCLOPRAMIDE HCL 5 MG TABLET PO SCH (08:15)
[2019-05-08] MEDS: PANTOprazole 40 MG TAB PO SCH (08:15)
[2019-05-08] MEDS: FLUTICASONE/SALMETEROL (ADVAIR) 500/50 INH 14 PUFF INH SCH ×2 (08:15→21:32)
[2019-05-08] MEDS: POTASSIUM CHLORIDE 20 MEQ TABCR PO SCH ×2 (09:52→21:32)
[2019-05-08] MEDS: ACETAMINOPHEN 325 MG TAB PO PRN (17:51)
--- NOTE | 2019-05-08 18:05 | Hospitalist Progress Note ---
Date of Service May 08, 2019 Assessment & Plan (1) Diverticulitis: 68 yo F with PMHx recurrent diverticulitis with multiple admissions, CVID, asthma, autonomic dysfunction, hypothyroidism, GERD presents for worsening diverticulitis/colitis despite completion of ertapenem IV antibiotic treatment outpatient. Diverticulitis/Colitis - have continued Zosyn at this time with some improvement in her symptoms - pt is aware that she will be going home with IV Zosyn and will be educated on how to best do this while at home prior to discharge - Pt has continued inflammation of her colon suggesting worsening diverticulitis/colitis from prior visit. She has been admitted multiple times just this year for diverticulitis which before now has resolved with a longer course of antibiotics due to her immunodeficiency. - Her most recent diverticulitis not only did not improve on outpatient ertapenem but got worse both clinically by the patient's symptoms and on CT Abdomen/Pelvis - Have consulted both Dr. Gross with GI and Dr. Jacobs with ID whose practices follow this patient and appreciate recommendations for best practices moving forward to prevent further recurrence of her diverticulitis. - CVID - Diagnosed with common variable immunodeficiency and receives IVIG through her left sided chest port once monthly. Hypothyroidism - Continue home levothyroxine 50mcg qAM. HTN - Has a history of syncope and is followed by Dr. Carbajal for autonomic dysfunction. - No recent presyncope, pt is running slightly hypertensive. HTN likely convoluted by abdominal pain. No symptoms such as dizziness, visual changes, CP, SOB. - Have hydralazine 10mg q4h PRN SBP >170 and will reevaulate HTN thorughout the day. Autonomic dysfunction - See HTN above Asthma - Pt without symptoms of SOB or wheezing at this time. - Will continue home Ventolin Q6H PRN SOB/wheezing, Advair Diskus BID scheduled. Hypokalemia - Potassium 3.4 today. - Continue home Potassium chloride 20meq PO BID. BMP AM. GERD - pt without symptoms of reflux at this time. - Continue home pantoprazole 40mg qAM. HLD - Continue home simvastatin 20mg daily. (2) Colitis: (3) Common variable hypogammaglobulinemia: (4) Autonomic dysfunction: (5) Hypothyroidism: (6) HTN (hypertension): (7) Asthma: (8) Hypokalemia: (9) Dyslipidemia: (10) GERD (gastroesophageal reflux disease): Supervising Physician Co-Signing Physician Notes I saw the patient currently a resident physician and confirmed osman portion of the history of physical exam. I also discussed the case with gastroenterology as well as an infectious disease. Acute on chronic diverticulitis Clinical improvement since switched to Zosyn (previously on ertapenem) Advance diet -still not consuming enough at this point to consider discharge Will need 14 days of IV antibiotics -she is not medically stable for discharge but we did start to investigate the possibilities for home antibiotics Will follow up with [facility] colorectal surgery -the plan now is consideration of hemicolectomy once she has recovered from her current bout. Subjective Pt tolerated full liquid diet well overnight, had some increased nausea with moving around the room, and frequent trips to the bathroom; but felt much improved this morning. Having some persistent pain in the left side of her abdomen, but this has not changed during this hospital stay. Understands that she will have to go home with IV antibiotics as she returns closer to her baseline and will have to at that point continue to stay infection free before she can have the surgery. Review of Systems Constitutional: + fatigue; no fever, no chills and no sweats Gastrointestinal: + abdominal pain; no bloating, no nausea, no vomiting and no change in bowel habits Physical Exam Constitutional: well developed and well nourished Eyes: PERRL, conjunctivae normal, anicteric sclerae Respiratory: normal respiratory effort, lungs clear to auscultation Cardiovascular: RRR, no murmur, no edema Gastrointestinal (Abdomen): Percussion/Palpation: + abdomen tender, + guarding and abdomen soft; abdomen not rigid Results & Data Vital Signs (Past 12 Hours) Vital Signs Temp Pulse Pulse Pulse Resp BP Pulse Ox 05/08/19 15:46 37.2 C 60 16 162/90 H 93 05/08/19 07:30 36.7 C 80 14 160/90 H 94 05/08/19 06:59 37.3 C 76 18 162/84 H 92 Laboratory Results 05/08/19 Range/Units 07:21 WBC 6.56 (4.8-10.8) K/uL RBC 4.32 (4.2-5.4) M/uL Hgb 11.0 L (12.0-16.0) g/dL Hct 35.3 L (37-47) % MCV 81.7 (80-100) fL MCH 25.5 (25-34) pg MCHC 31.2 L (32-36) g/dL RDW Std Deviation 54.5 H (36.4-46.3) fL RDW Coeff of Mandeep 18.2 H (11.5-14.5) % Plt Count 268 (130-400) K/uL MPV 11.2 H (7.4-10.4) fL Immature Gran % (Auto) 0.2 % Neut % (Auto) 59.7 % Lymph % (Auto) 25.3 % [place] % (Auto) 11.9 % Eos % (Auto) 2.6 % Baso % (Auto) 0.3 % Immature Gran # (Auto) 0.01 (0.00-0.02) K/uL Neut # (Auto) 3.92 (1.4-6.5) K/uL Lymph # (Auto) 1.66 (1.2-3.4) K/uL [place] # (Auto) 0.78 H (0.11-0.59) K/uL Eos # (Auto) 0.17 (0-0.5) K/uL Baso # (Auto) 0.02 (0-0.2) K/uL Medications Administered Current Inpatient Medications Acetaminophen (Tylenol) 650 mg PO Q4H PRN PRN Reason: pain/fever Stop: 06/04/19 12:58 Last Admin: 05/08/19 17:51 Dose: 650 mg Documented by: Al Hydrox/Mg Hydrox/Simethicone (Maalox) 30 ml PO Q6H PRN PRN Reason: Dyspepsia Stop: 06/04/19 12:58 Last Admin: 05/08/19 03:06 Dose: 30 ml Documented by: Albuterol (Ventolin 0.083% 2.5mg/3ml) 2.5 mg INH Q6H PRN PRN Reason: Shortness Of Breath Stop: 06/04/19 12:58 Enoxaparin Sodium (Lovenox) 40 mg SQ HS [facility] Stop: 06/06/19 17:29 Last Admin: 05/07/19 19:56 Dose: 40 mg Documented by: Heparin Sodium (Porcine) (Heparin Sod 100 Unit/Ml Flush) 5 ml FLUSH PRN PRN PRN Reason: Flush Stop: 06/05/19 00:14 Hydralazine HCl (Apresoline) 10 mg PO Q4H PRN PRN Reason: SBP >170 Stop: 06/04/19 12:58 Sodium Chloride (Nss 1000ml) 1,000 mls @ 125 mls/hr IV .Q8H [facility] Stop: 06/04/19 06:44 Last Admin: 05/08/19 13:30 Dose: 125 mls/hr Documented by: Piperacillin Sod/Tazobactam (Sod 4.5 gm/ Dextrose) 120 mls @ 30 mls/hr IV Q8H [facility]; Protocol Stop: 05/15/19 14:59 Last Infusion: 05/08/19 17:48 Dose: Infused Documented by: Levothyroxine Sodium (Synthroid) 50 mcg PO DAILYBB [facility] Stop: 06/05/19 06:29 Last Admin: 05/08/19 06:00 Dose: 50 mcg Documented by: Magnesium Hydroxide (Milk Of Magnesia) 30 ml PO Q6H PRN PRN Reason: Constipation Stop: 06/04/19 12:58 Metoclopramide HCl (Reglan) 5 mg PO DAILY [facility] Stop: 06/04/19 12:58 Last Admin: 05/08/19 08:15 Dose: 5 mg Documented by: Miscellaneous Information (Consult) 1 ea N/A UD PRN PRN Reason: Consult Stop: 06/04/19 09:18 Morphine Sulfate (Morphine Sulfate) 2 mg IV Q4H PRN PRN Reason: Pain Stop: 05/19/19 14:40 Last Admin: 05/08/19 08:14 Dose: 2 mg Documented by: Ondansetron HCl (Zofran Odt) 4 mg PO Q6H PRN PRN Reason: nausea and vomiting Stop: 06/04/19 12:58 Last Admin: 05/08/19 05:05 Dose: 4 mg Documented by: Pantoprazole Sodium (Protonix) 40 mg PO QAM [facility] Stop: 06/04/19 12:58 Last Admin: 05/08/19 08:15 Dose: 40 mg Documented by: Polyethylene Glycol (Miralax Powder Packet) 17 gm PO DAILY PRN PRN Reason: Constipation Stop: 06/04/19 12:58 Polyethylene Glycol (Miralax Powder Packet) 17 gm PO DAILY [facility] Stop: 06/08/19 08:59 Potassium Chloride (Klor-Con M20) 20 meq PO BID [facility] Stop: 06/04/19 12:58 Last Admin: 05/08/19 09:52 Dose: 20 meq Documented by: Fluticasone/Salmeterol (Advair Diskus 500/50) 1 puffs INH BID [facility] Stop: 06/04/19 12:58 Last Admin: 05/08/19 08:15 Dose: 1 puffs Documented by: Simvastatin (Zocor) 20 mg PO HS [facility] Stop: 06/04/19 20:59 Last Admin: 05/07/19 20:42 Dose: 20 mg Documented by: Resident Activity Tracking Resident Involvement: Resident Care Provided Care Provided: Adult Hospital Medicine (1) Hypothyroidism Hypothyroidism type: unspecified Qualified Code(s): E03.9 - Hypothyroidism, unspecified (2) GERD (gastroesophageal reflux disease) Esophagitis presence: without esophagitis Qualified Code(s): K21.9 - Gastro- esophageal reflux disease without esophagitis (3) HTN (hypertension) Hypertension type: essential hypertension Qualified Code(s): I10 - Essential (primary) hypertension (4) Asthma Asthma complication type: unspecified Asthma persistence: unspecified Asthma severity: unspecified severity Qualified Code(s): J45.909 - Unspecified asthma, uncomplicated
--- NOTE | 2019-05-08 20:39 | Progress Note ---
DATE: 05/08/2019 SUBJECTIVE: The patient reports that her abdominal pain is diminishing, but still present. She is tolerating full liquids and had a small bowel movement yesterday and small bowel movement today. Still feels slightly distended and bloated. She continues on Zosyn day 3 and is afebrile with a normal white count. Abdomen is still slightly tender in the left lower quadrant. IMPRESSION: The patient's diverticulitis is improving with current measures. I plan on adding MiraLax daily to help get her bowels soft and moving. If she continues to improve, then we maybe able to advance her to a low-fiber diet tomorrow. So, we are still waiting on the care management team to see if we can arrange for home I.V. antibiotics.
[2019-05-08] MEDS: SIMVASTATIN 20 MG TAB PO SCH (21:33)
[2019-05-08] MEDS: ENOXAPARIN INJ 40 MG/0.4 ML SYR SQ SCH (21:33)
[2019-05-09] MEDS: PIPERACILLIN/TAZOBACTAM 4.5 GM in DEXTROSE 5% 100 ML IV SCH ×3 (05:32→21:22)
[2019-05-09] MEDS: SODIUM CHLORIDE 0.9% 1000ML 1,000 ML IV SCH ×3 (05:33→21:27)
[2019-05-09] MEDS: LEVOTHYROXINE SODIUM 50 MCG TABLET PO SCH (05:36)
[2019-05-09] MEDS: FLUTICASONE/SALMETEROL (ADVAIR) 500/50 INH 14 PUFF INH SCH ×2 (08:30→21:22)
[2019-05-09] MEDS: POTASSIUM CHLORIDE 20 MEQ TABCR PO SCH ×2 (08:30→21:21)
[2019-05-09] MEDS: POLYETHYLENE (MIRALAX) 17 GM PACK PO SCH (08:31)
[2019-05-09] MEDS: METOCLOPRAMIDE HCL 5 MG TABLET PO SCH (08:31)
[2019-05-09] MEDS: PANTOprazole 40 MG TAB PO SCH (08:31)
[2019-05-09] MEDS: ACETAMINOPHEN 325 MG TAB PO PRN (09:33)
[2019-05-09] MEDS: ONDANSETRON 4 MG OD TAB PO PRN ×3 (10:04→21:21)
--- NOTE | 2019-05-09 10:10 | Hospitalist Progress Note ---
Date of Service May 09, 2019 Assessment & Plan (1) Diverticulitis: 68 yo F with PMHx recurrent diverticulitis with multiple admissions, CVID, asthma, autonomic dysfunction, hypothyroidism, GERD presents for worsening diverticulitis/colitis despite completion of ertapenem IV antibiotic treatment outpatient. Diverticulitis/Colitis -continuing Zosyn at this time with some improvement in her symptoms -pt is aware that she will be going home with IV Zosyn and will be educated on how to best do this while at home prior to discharge -Pt has continued inflammation of her colon suggesting worsening diverticulitis/colitis from prior visit. She has been admitted multiple times just this year for diverticulitis which before now has resolved with a longer course of antibiotics due to her immunodeficiency. -Her most recent diverticulitis not only did not improve on outpatient ertapenem but got worse both clinically by the patient's symptoms and on CT Abdomen/Pelvis -Have consulted both Dr. Gross with GI and Dr. Jacobs with ID whose practices follow this patient and appreciate recommendations for best practices moving forward to prevent further recurrence of her diverticulitis. -advancing her diet to low-fiber diet at this time as she has tolerated full liquid diet well CVID - Diagnosed with common variable immunodeficiency and receives IVIG through her left sided chest port once monthly. Hypothyroidism - Continue home levothyroxine 50mcg qAM. HTN - Has a history of syncope and is followed by Dr. Carbajal for autonomic dysfunction. - No recent presyncope, pt is running slightly hypertensive. HTN likely convoluted by abdominal pain. No symptoms such as dizziness, visual changes, CP, SOB. - Have hydralazine 10mg q4h PRN SBP >170 and will reevaulate HTN thorughout the day. Autonomic dysfunction - See HTN above Asthma - Pt without symptoms of SOB or wheezing at this time. - Will continue home Ventolin Q6H PRN SOB/wheezing, Advair Diskus BID scheduled. Hypokalemia - K = 3.6 on 05/07 - Continue home Potassium chloride 20meq PO BID. -BMP in the AM GERD - pt without symptoms of reflux at this time. - Continue home pantoprazole 40mg qAM. HLD - Continue home simvastatin 20mg daily. (2) Colitis: (3) Common variable hypogammaglobulinemia: (4) Autonomic dysfunction: (5) Hypothyroidism: (6) HTN (hypertension): (7) Asthma: (8) Hypokalemia: (9) Dyslipidemia: (10) GERD (gastroesophageal reflux disease): Supervising Physician Co-Signing Physician Notes I saw the patient currently a resident physician and confirmed osman portion of the history of physical exam. I also discussed the case with gastroenterology as well as an infectious disease. The patient had to explosive bowel movements today post MiraLAX. She did not tolerate as much as her breakfast and lunch as she did yesterday. Her abdominal pain varies, though in some about the same as yesterday. Her white count is normal at 6.56; chemistries are unremarkable She remains afebrile Acute on chronic diverticulitis Slow improvement since switched to Zosyn (previously on ertapenem) Slowly advance diet Will need 14 days of IV antibiotics -she is not medically stable for discharge but we did start to investigate the possibilities for home antibiotics Will follow up with [facility] colorectal surgery -the plan now is consideration of hemicolectomy once she has recovered from her current bout. Subjective Pt tolerated full liquid diet well overnight, had some increased nausea late in the night, but continues to feel much improved this morning. Understands that she will have to go home with IV antibiotics as she returns closer to her baseline and will have to at that point continue to stay infection free before she can have the surgery. Is fearful of having setback when it comes to advancing her diet, and how well she will tolerate having a low fiber diet. Review of Systems Constitutional: + fatigue; no fever, no chills and no sweats Gastrointestinal: + abdominal pain; no bloating, no nausea, no vomiting and no change in bowel habits Physical Exam Constitutional: well developed and well nourished Eyes: PERRL, conjunctivae normal, anicteric sclerae Respiratory: normal respiratory effort, lungs clear to auscultation Cardiovascular: RRR, no murmur, no edema Gastrointestinal (Abdomen): Percussion/Palpation: + abdomen tender, + guarding and abdomen soft; abdomen not rigid Results & Data Vital Signs (Past 12 Hours) Vital Signs Temp Pulse Pulse Resp BP Pulse Ox 05/09/19 08:28 169/92 H 05/09/19 07:08 36.5 C 81 16 189/97 H 95 05/08/19 23:00 37.0 C 77 18 152/79 H 94 Medications Administered Current Inpatient Medications Acetaminophen (Tylenol) 650 mg PO Q4H PRN PRN Reason: pain/fever Stop: 06/04/19 12:58 Last Admin: 05/09/19 09:33 Dose: 650 mg Documented by: Al Hydrox/Mg Hydrox/Simethicone (Maalox) 30 ml PO Q6H PRN PRN Reason: Dyspepsia Stop: 06/04/19 12:58 Last Admin: 05/08/19 03:06 Dose: 30 ml Documented by: Albuterol (Ventolin 0.083% 2.5mg/3ml) 2.5 mg INH Q6H PRN PRN Reason: Shortness Of Breath Stop: 06/04/19 12:58 Enoxaparin Sodium (Lovenox) 40 mg SQ HS [facility] Stop: 06/06/19 17:29 Last Admin: 05/08/19 21:33 Dose: 40 mg Documented by: Heparin Sodium (Porcine) (Heparin Sod 100 Unit/Ml Flush) 5 ml FLUSH PRN PRN PRN Reason: Flush Stop: 06/05/19 00:14 Hydralazine HCl (Apresoline) 10 mg PO Q4H PRN PRN Reason: SBP >170 Stop: 06/04/19 12:58 Sodium Chloride (Nss 1000ml) 1,000 mls @ 125 mls/hr IV .Q8H [facility] Stop: 06/04/19 06:44 Last Admin: 05/09/19 05:33 Dose: 125 mls/hr Documented by: Piperacillin Sod/Tazobactam (Sod 4.5 gm/ Dextrose) 120 mls @ 30 mls/hr IV Q8H [facility]; Protocol Stop: 05/15/19 14:59 Last Infusion: 05/09/19 09:30 Dose: Infused Documented by: Levothyroxine Sodium (Synthroid) 50 mcg PO DAILYBB [facility] Stop: 06/05/19 06:29 Last Admin: 05/09/19 05:36 Dose: 50 mcg Documented by: Magnesium Hydroxide (Milk Of Magnesia) 30 ml PO Q6H PRN PRN Reason: Constipation Stop: 06/04/19 12:58 Metoclopramide HCl (Reglan) 5 mg PO DAILY [facility] Stop: 06/04/19 12:58 Last Admin: 05/09/19 08:31 Dose: 5 mg Documented by: Miscellaneous Information (Consult) 1 ea N/A UD PRN PRN Reason: Consult Stop: 06/04/19 09:18 Morphine Sulfate (Morphine Sulfate) 2 mg IV Q4H PRN PRN Reason: Pain Stop: 05/19/19 14:40 Last Admin: 05/08/19 08:14 Dose: 2 mg Documented by: Ondansetron HCl (Zofran Odt) 4 mg PO Q6H PRN PRN Reason: nausea and vomiting Stop: 06/04/19 12:58 Last Admin: 05/09/19 10:04 Dose: 4 mg Documented by: Pantoprazole Sodium (Protonix) 40 mg PO QAM [facility] Stop: 06/04/19 12:58 Last Admin: 05/09/19 08:31 Dose: 40 mg Documented by: Polyethylene Glycol (Miralax Powder Packet) 17 gm PO DAILY PRN PRN Reason: Constipation Stop: 06/04/19 12:58 Polyethylene Glycol (Miralax Powder Packet) 17 gm PO DAILY [facility] Stop: 06/08/19 08:59 Last Admin: 05/09/19 08:31 Dose: 17 gm Documented by: Potassium Chloride (Klor-Con M20) 20 meq PO BID [facility] Stop: 06/04/19 12:58 Last Admin: 05/09/19 08:30 Dose: 20 meq Documented by: Fluticasone/Salmeterol (Advair Diskus 500/50) 1 puffs INH BID [facility] Stop: 06/04/19 12:58 Last Admin: 05/09/19 08:30 Dose: 1 puffs Documented by: Simvastatin (Zocor) 20 mg PO HS [facility] Stop: 06/04/19 20:59 Last Admin: 05/08/19 21:33 Dose: 20 mg Documented by: Resident Activity Tracking Resident Involvement: Resident Care Provided Care Provided: Adult Hospital Medicine (1) Hypothyroidism Hypothyroidism type: unspecified Qualified Code(s): E03.9 - Hypothyroidism, unspecified (2) GERD (gastroesophageal reflux disease) Esophagitis presence: without esophagitis Qualified Code(s): K21.9 - Gastro- esophageal reflux disease without esophagitis (3) HTN (hypertension) Hypertension type: essential hypertension Qualified Code(s): I10 - Essential (primary) hypertension (4) Asthma Asthma complication type: unspecified Asthma persistence: unspecified Asthma severity: unspecified severity Qualified Code(s): J45.909 - Unspecified asthma, uncomplicated
[2019-05-09] MEDS ORDERED: IBUPROFEN 600 MG TAB PO STA (15:19)
--- NOTE | 2019-05-09 17:49 | Progress Note ---
DATE: 05/09/2019 The patient had 2 explosive bowel movements today following MiraLax, still having a little bit of crampy abdominal pain. She remains afebrile on Zosyn and her white count is still normal. I think today is day 5 of her IV antibiotics of a 14-day course. She reports that she will be seen tomorrow by [facility] to arrange for her to get Zosyn 3 times a day at home and will be training her and her tomorrow and when she feels a little bit stronger, she should be able to go home and complete antibiotics as an outpatient. We will arrange for her to see one of the colorectal surgeons from [place] once she is discharged from the hospital to hopefully set up a time for her to have surgery for her diverticulitis. We will continue to follow the patient.
[2019-05-09] MEDS ORDERED: IBUPROFEN 200 MG TAB PO PRN (20:21)
[2019-05-09] MEDS: SIMVASTATIN 20 MG TAB PO SCH (21:21)
[2019-05-09] MEDS: ENOXAPARIN INJ 40 MG/0.4 ML SYR SQ SCH (21:23)
[2019-05-10] MEDS: ALUMINUM/MAGNESIUM SUSP 30 ML UDC PO PRN (01:27)
[2019-05-10] MEDS: ONDANSETRON 4 MG OD TAB PO PRN ×3 (03:44→17:12)
[2019-05-10] MEDS: SODIUM CHLORIDE 0.9% 1000ML 1,000 ML IV SCH ×3 (05:12→21:47)
[2019-05-10] MEDS: LEVOTHYROXINE SODIUM 50 MCG TABLET PO SCH (05:50)
[2019-05-10] MEDS: PIPERACILLIN/TAZOBACTAM 4.5 GM in DEXTROSE 5% 100 ML IV SCH ×3 (05:50→21:45)
[2019-05-10 06:58] LABS: Basophils # (auto) 0.01 K/uL (0-0.2); Basophils % (auto) 0.1 %; Eosinophils # (auto) 0.17 K/uL (0-0.5); Eosinophils % (auto) 2.5 %; Hematocrit (blood only) 36.5 % (37-47); Hemoglobin 11.2 g/dL (12.0-16.0); Immature Granulocytes # (auto) 0.01 K/uL (0.00-0.02); Immature Granulocytes % (auto) 0.1 %; Lymphocytes # (auto) 1.72 K/uL (1.2-3.4); Lymphocytes % (auto) 25.4 %; Mean Corpuscular Hemoglobin 25.2 pg (25-34); Mean Corpuscular Hgb Conc 30.7 g/dL (32-36); Mean Corpuscular Volume 82.2 fL (80-100); Monocytes # (auto) 0.77 K/uL (0.11-0.59); Monocytes % (auto) 11.4 %; Neutrophils # (auto) 4.09 K/uL (1.4-6.5); Neutrophils % (auto) 60.5 %; Platelet Count 295 K/uL (130-400); RDW Coefficient of Variation 18.4 % (11.5-14.5); RDW Standard Deviation 55.5 fL (36.4-46.3); Red Blood Count 4.44 M/uL (4.2-5.4); White Blood Count 6.77 K/uL (4.8-10.8)
[2019-05-10 07:28] LABS: BUN Creatinine Ratio 3.8 (10-20); Calcium 9.8 mg/dl (8.5-10.1); Creatinine Clr Calc Pharmacy 64.3 ml/min; Est GFR (African American) 80.5; Est GFR (Non-African American) 69.4; Potassium 3.3 mmol/L (3.5-5.1)
[2019-05-10] MEDS ORDERED: POTASSIUM CHLORIDE 20 MEQ TABCR PO STA (07:46)
[2019-05-10] MEDS: POLYETHYLENE (MIRALAX) 17 GM PACK PO SCH (10:31)
[2019-05-10] MEDS: FLUTICASONE/SALMETEROL (ADVAIR) 500/50 INH 14 PUFF INH SCH ×2 (10:31→20:50)
[2019-05-10] MEDS: ACETAMINOPHEN 325 MG TAB PO PRN (11:15)
[2019-05-10] MEDS: METOCLOPRAMIDE HCL 5 MG TABLET PO SCH (11:16)
--- NOTE | 2019-05-10 12:56 | Progress Note ---
DATE: 05/10/2019 SUBJECTIVE: The patient states that she vomited her eggs from this morning and has had 3 explosive bowel movements today. She did get trained in home administration of her Zosyn and she said that went well, but she does not feel like she is tolerating a low fiber diet yet. Her vital signs show blood pressure 198/114. She does have an autonomic dysfunctions and her passenger agent has decided not to treat her blood pressure as it has a tendency to bottom out precipitously and she has had 4 concussions from falling in the past. Pulse is 70, temperature is 36.5, white blood cell count is 6.77, hemoglobin stable at 11.2. IMPRESSION: The patient is continuing to be somewhat symptomatic from her diverticulitis, although improving on Zosyn. She is trained in home IV antibiotic administration and once she is symptomatically little better, she should be able to be discharged home to complete her antibiotic course as an outpatient. Once she is discharged, then we can set up an appointment with colorectal surgeons from [place] to arrange for her to have a definitive surgery at an appropriate time and place.
[2019-05-10] MEDS: POTASSIUM CHLORIDE 20 MEQ TABCR PO SCH ×2 (14:36→21:46)
[2019-05-10] MEDS: PANTOprazole 40 MG TAB PO SCH (14:36)
--- NOTE | 2019-05-10 16:07 | Hospitalist Progress Note ---
Date of Service May 10, 2019 Assessment & Plan (1) Diverticulitis: 68 yo F with PMHx recurrent diverticulitis with multiple admissions, CVID, asthma, autonomic dysfunction, hypothyroidism, GERD presents for worsening diverticulitis/colitis despite completion of ertapenem IV antibiotic treatment outpatient. Diverticulitis/Colitis -continuing Zosyn at this time with some improvement in her symptoms -pt is aware that she will be going home with IV Zosyn and received instruction on home administration today. -Pt has continued inflammation of her colon suggesting worsening diverticulitis/colitis from prior visit. She has been admitted multiple times just this year for diverticulitis which before now has resolved with a longer course of antibiotics due to her immunodeficiency. -Her most recent diverticulitis not only did not improve on outpatient ertapenem but got worse both clinically by the patient's symptoms and on CT Abdomen/Pelvis -Have consulted both Dr. Gross with GI and Dr. Jacobs with ID whose practices follow this patient and appreciate recommendations for best practices moving forward to prevent further recurrence of her diverticulitis. -maintaining her diet on low-fiber with the understanding that if she continues to not be able to tolerate these meals, return to the full liquid diet will be necessitated. 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 Hypothyroidism - Continue home levothyroxine 50mcg qAM. HTN - Has a history of syncope and is followed by Dr. Carbajal for autonomic dysfunction. - No recent presyncope, pt is running slightly hypertensive. HTN likely convoluted by abdominal pain. No symptoms such as dizziness, visual changes, CP, SOB. - Have hydralazine 10mg q4h PRN SBP >170 and will reevaulate HTN thorughout the day. Autonomic dysfunction - See HTN above Asthma - Pt without symptoms of SOB or wheezing at this time. - Will continue home Ventolin Q6H PRN SOB/wheezing, Advair Diskus BID scheduled. Hypokalemia - K = 3.6 on 05/07 - Continue home Potassium chloride 20meq PO BID. -BMP in the AM GERD - pt without symptoms of reflux at this time. - Continue home pantoprazole 40mg qAM. HLD - Continue home simvastatin 20mg daily. (2) Colitis: (3) Common variable hypogammaglobulinemia: (4) Autonomic dysfunction: (5) Hypothyroidism: (6) HTN (hypertension): (7) Asthma: (8) Hypokalemia: (9) Dyslipidemia: (10) GERD (gastroesophageal reflux disease): Supervising Physician Co-Signing Physician Notes Patient seen and examined with PGY-1 Dr. Yadav. Agree with history, exam findings, assessment and plan of care. Had nausea and diarrhea today. Still with left lower abdominal pain. Not tolerating breakfast. Picking at full liquid lunch. Encouraged her to continue to take PO as tolerated. WBCs normalized. Unremarkable chemistries. A febrile. Well appearing. Tender in the left lower quadrant. No rebound. 1. acute on chronic diverticulitis. continue zosyn. low fiber/full liquid diet. Appreciate GI and ID assistances. Plans for follow up with colorectal surgery for hemicolectomy. 2. Elevated BP today. Asymptomatic. Monitor. Would like to get her flu shot. Other chronic conditions are stable. Subjective Pt did not tolerate the adjustment to low-fiber diet overnight; had several e pisodes of severe nausea, and vomiting; additionally, has had some diarrhea following having her most recent meals. During the day today, she attempted to eat another low-fiber meal for breakfast and lunch but this was followed by extensive return of her nausea and vomiting. Switched her lunch to full liquids and was cautiously eating this afternoon without nausea or vomiting. Physical Exam Constitutional: well developed and well nourished Eyes: PERRL, conjunctivae normal, anicteric sclerae Respiratory: normal respiratory effort, lungs clear to auscultation Cardiovascular: RRR, no murmur, no edema Gastrointestinal (Abdomen): Percussion/Palpation: + abdomen tender, + guarding and abdomen soft; abdomen not rigid Results & Data Vital Signs (Past 12 Hours) Vital Signs Temp Pulse Resp BP Pulse Ox 05/10/19 14:54 37 C 82 16 177/108 H 97 05/10/19 11:21 36.5 C 198/114 H 05/10/19 07:03 37.0 C 70 18 179/93 H 92 Laboratory Results 05/10/19 05/10/19 Range/Units 05:58 05:58 WBC 6.77 (4.8-10.8) K/uL RBC 4.44 (4.2-5.4) M/uL Hgb 11.2 L (12.0-16.0) g/dL Hct 36.5 L (37-47) % MCV 82.2 (80-100) fL MCH 25.2 (25-34) pg MCHC 30.7 L (32-36) g/dL RDW Std Deviation 55.5 H (36.4-46.3) fL RDW Coeff of Mandeep 18.4 H (11.5-14.5) % Plt Count 295 (130-400) K/uL MPV 12.0 H (7.4-10.4) fL Immature Gran % (Auto) 0.1 % Neut % (Auto) 60.5 % Lymph % (Auto) 25.4 % Desha % (Auto) 11.4 % Eos % (Auto) 2.5 % Baso % (Auto) 0.1 % Immature Gran # (Auto) 0.01 (0.00-0.02) K/uL Neut # (Auto) 4.09 (1.4-6.5) K/uL Lymph # (Auto) 1.72 (1.2-3.4) K/uL Desha # (Auto) 0.77 H (0.11-0.59) K/uL Eos # (Auto) 0.17 (0-0.5) K/uL Baso # (Auto) 0.01 (0-0.2) K/uL Sodium 144 (136-145) mmol/L Potassium 3.3 L (3.5-5.1) mmol/L Chloride 114 H (98-107) mmol/L Carbon Dioxide 22 (21-32) mmol/L Anion Gap 8.0 (3-11) BUN 3 L (7-18) mg/dl Creatinine 0.85 (0.6-1.2) mg/dl Est Cr Clr Drug Dosing 64.3 ml/min Est GFR ( Amer) 80.5 Est GFR (Non-Af Amer) 69.4 BUN/Creatinine Ratio 3.8 L (10-20) Glucose 109 H (70-99) mg/dl Calcium 9.8 (8.5-10.1) mg/dl Medications Administered Current Inpatient Medications Acetaminophen (Tylenol) 650 mg PO Q4H PRN PRN Reason: pain/fever Stop: 06/04/19 12:58 Last Admin: 05/10/19 11:15 Dose: 650 mg Documented by: Al Hydrox/Mg Hydrox/Simethicone (Maalox) 30 ml PO Q6H PRN PRN Reason: Dyspepsia Stop: 06/04/19 12:58 Last Admin: 05/10/19 01:27 Dose: 30 ml Documented by: Albuterol (Ventolin 0.083% 2.5mg/3ml) 2.5 mg INH Q6H PRN PRN Reason: Shortness Of Breath Stop: 06/04/19 12:58 Enoxaparin Sodium (Lovenox) 40 mg SQ HS [facility] Stop: 06/06/19 17:29 Last Admin: 05/09/19 21:23 Dose: 40 mg Documented by: Heparin Sodium (Porcine) (Heparin Sod 100 Unit/Ml Flush) 5 ml FLUSH PRN PRN PRN Reason: Flush Stop: 06/05/19 00:14 Hydralazine HCl (Apresoline) 10 mg PO Q4H PRN PRN Reason: SBP >170 Stop: 06/04/19 12:58 Last Admin: 05/10/19 12:12 Dose: 10 mg Documented by: Sodium Chloride (Nss 1000ml) 1,000 mls @ 125 mls/hr IV .Q8H [facility] Stop: 06/04/19 06:44 Last Admin: 05/10/19 13:28 Dose: 125 mls/hr Documented by: Piperacillin Sod/Tazobactam (Sod 4.5 gm/ Dextrose) 120 mls @ 30 mls/hr IV Q8H [facility]; Protocol Stop: 05/15/19 14:59 Last Admin: 05/10/19 13:41 Dose: 30 mls/hr Documented by: Ibuprofen (Advil) 400 mg PO QID PRN PRN Reason: Pain or Fever Stop: 06/08/19 20:20 Last Admin: 05/09/19 21:21 Dose: 400 mg Documented by: Levothyroxine Sodium (Synthroid) 50 mcg PO DAILYBB [facility] Stop: 06/05/19 06:29 Last Admin: 05/10/19 05:50 Dose: 50 mcg Documented by: Magnesium Hydroxide (Milk Of Magnesia) 30 ml PO Q6H PRN PRN Reason: Constipation Stop: 06/04/19 12:58 Metoclopramide HCl (Reglan) 5 mg PO DAILY [facility] Stop: 06/04/19 12:58 Last Admin: 05/10/19 11:16 Dose: 5 mg Documented by: Miscellaneous Information (Consult) 1 ea N/A UD PRN PRN Reason: Consult Stop: 06/04/19 09:18 Morphine Sulfate (Morphine Sulfate) 2 mg IV Q4H PRN PRN Reason: Pain Stop: 05/19/19 14:40 Last Admin: 05/08/19 08:14 Dose: 2 mg Documented by: Ondansetron HCl (Zofran Odt) 4 mg PO Q6H PRN PRN Reason: nausea and vomiting Stop: 06/04/19 12:58 Last Admin: 05/10/19 10:30 Dose: 4 mg Documented by: Pantoprazole Sodium (Protonix) 40 mg PO QAM [facility] Stop: 06/04/19 12:58 Last Admin: 05/10/19 14:36 Dose: 40 mg Documented by: Polyethylene Glycol (Miralax Powder Packet) 17 gm PO DAILY PRN PRN Reason: Constipation Stop: 06/04/19 12:58 Polyethylene Glycol (Miralax Powder Packet) 17 gm PO DAILY [facility] Stop: 06/08/19 08:59 Last Admin: 05/10/19 10:31 Dose: Not Given Documented by: Potassium Chloride (Klor-Con M20) 20 meq PO BID [facility] Stop: 06/04/19 12:58 Last Admin: 05/10/19 14:36 Dose: 20 meq Documented by: Fluticasone/Salmeterol (Advair Diskus 500/50) 1 puffs INH BID [facility] Stop: 06/04/19 12:58 Last Admin: 05/10/19 10:31 Dose: 1 puffs Documented by: Simvastatin (Zocor) 20 mg PO HS [facility] Stop: 06/04/19 20:59 Last Admin: 05/09/19 21:21 Dose: 20 mg Documented by: Resident Activity Tracking Resident Involvement: Resident Care Provided Care Provided: Adult Hospital Medicine (1) Hypothyroidism Hypothyroidism type: unspecified Qualified Code(s): E03.9 - Hypothyroidism, unspecified (2) GERD (gastroesophageal reflux disease) Esophagitis presence: without esophagitis Qualified Code(s): K21.9 - Gastro- esophageal reflux disease without esophagitis (3) HTN (hypertension) Hypertension type: essential hypertension Qualified Code(s): I10 - Essential (primary) hypertension (4) Asthma Asthma complication type: unspecified Asthma persistence: unspecified Asthma severity: unspecified severity Qualified Code(s): J45.909 - Unspecified asthma, uncomplicated
[2019-05-10] MEDS ORDERED: INFLUENZA ADMINISTRATION CHARGE ONE (18:00)
[2019-05-10] MEDS ORDERED: INFLUENZA VACCINE HIGH DOSE 65+ 0.5 ML SYR IM ONE (18:00)
[2019-05-10] MEDS: ENOXAPARIN INJ 40 MG/0.4 ML SYR SQ SCH (20:49)
[2019-05-10] MEDS: SIMVASTATIN 20 MG TAB PO SCH (20:49)
[2019-05-11] MEDS: SODIUM CHLORIDE 0.9% 1000ML 1,000 ML IV SCH ×3 (05:52→20:47)
[2019-05-11] MEDS: PIPERACILLIN/TAZOBACTAM 4.5 GM in DEXTROSE 5% 100 ML IV SCH ×3 (05:53→21:04)
[2019-05-11] MEDS: LEVOTHYROXINE SODIUM 50 MCG TABLET PO SCH (05:53)
[2019-05-11 07:35] LABS: BUN Creatinine Ratio 3.3 (10-20); Calcium 9.8 mg/dl (8.5-10.1); Creatinine Clr Calc Pharmacy 70.1 ml/min; Est GFR (African American) 89.3; Potassium 3.4 mmol/L (3.5-5.1)
[2019-05-11] MEDS: FLUTICASONE/SALMETEROL (ADVAIR) 500/50 INH 14 PUFF INH SCH ×2 (08:38→20:39)
[2019-05-11] MEDS: PANTOprazole 40 MG TAB PO SCH (08:38)
[2019-05-11] MEDS: METOCLOPRAMIDE HCL 5 MG TABLET PO SCH (08:38)
[2019-05-11] MEDS: POTASSIUM CHLORIDE 20 MEQ TABCR PO SCH ×2 (08:38→20:40)
[2019-05-11] MEDS: POLYETHYLENE (MIRALAX) 17 GM PACK PO SCH (08:39)
--- NOTE | 2019-05-11 17:34 | Hospitalist Progress Note ---
Date of Service May 11, 2019 Assessment & Plan (1) Diverticulitis: 68 yo F with PMHx recurrent diverticulitis with multiple admissions, CVID, asthma, autonomic dysfunction, hypothyroidism, GERD presents for worsening diverticulitis/colitis despite completion of ertapenem IV antibiotic treatment outpatient. Diverticulitis/Colitis--Improving -continue Zosyn at this time with some improvement in her symptoms per ID 14 day coarse SOT 05/06/2019-05/30/19 EOT -pt is aware that she will be going home with IV Zosyn and has been educated on how to administer IV antibiotics at home -Pt has continued inflammation of her colon suggesting worsening diverticulitis/colitis from prior visit. She has been admitted multiple times just this year for diverticulitis which before now has resolved with a longer course of antibiotics due to her immunodeficiency. -Her most recent diverticulitis not only did not improve on outpatient ertapenem but got worse both clinically by the patient's symptoms and on CT Abdomen/Pelvis -Have consulted both Dr. Gross with GI and Dr. Jacobs with ID whose practices follow this patient and appreciate recommendations for best practices moving forward to prevent further recurrence of her diverticulitis. -maintaining her diet on low-fiber CVID - Diagnosed with common variable immunodeficiency and receives IVIG through her left sided chest port once monthly. Hypothyroidism - Continue home levothyroxine 50mcg qAM. HTN - Has a history of syncope and is followed by Dr. Carbajal for autonomic dysfunction. - No recent presyncope, pt is running slightly hypertensive. HTN likely convoluted by abdominal pain. No symptoms such as dizziness, visual changes, CP, SOB. - Have hydralazine 10mg q4h PRN SBP >170 Autonomic dysfunction - See HTN above Asthma - Pt without symptoms of SOB or wheezing at this time. - Will continue home Ventolin Q6H PRN SOB/wheezing, Advair Diskus BID scheduled. Hypokalemia - K = 3.4 on 05/11 - Continue home Potassium Chloride 20meq PO BID. - BMP in the AM GERD - pt without symptoms of reflux at this time. - Continue home pantoprazole 40mg qAM. HLD - Continue home simvastatin 20mg daily. DVT: Lovenox Code: full Diet: low fiber (2) Colitis: (3) Common variable hypogammaglobulinemia: (4) Autonomic dysfunction: (5) Hypothyroidism: (6) HTN (hypertension): (7) Asthma: (8) Hypokalemia: (9) Dyslipidemia: (10) GERD (gastroesophageal reflux disease): Supervising Physician Co-Signing Physician Notes Patient seen and examined with PGY-1 Dr. Díaz. Agree with history, exam findings, assessment and plan of care. Had nausea and diarrhea today. Still with left lower abdominal pain. Ate a half a pancake for breakfast today and did well. Has not had increase in abdominal pain, new nausea or vomiting or diarrhea. WBCs normalized. Afebrile. Well appearing. Tender in the left lower quadrant. No rebound. 1. acute on chronic diverticulitis. continue zosyn. low fiber/full liquid diet. Appreciate GI and ID assistance. Plans for follow up with colorectal surgery for hemicolectomy. 2. Elevated BP today. Asymptomatic. Monitor. Asked to get her flu shot, but then later declined it. Can do this with her PCP after discharge. Other chronic conditions are stable. Dispo: pending clinical improvement. Hopeful for discharge in the next day or so if she continues to be able to tolerate solid, low-fiber foods. Plan for follow up with colorectal surgeon through [facility]SH at [facility] office. Subjective Cony Cruz states, "somewhat better than yesterday". She ate half of a pancake today without any difficulty, no current pain and no nausea. She does not feel that she is ready to go today, but may feel ready to go tomorrow. She mentioned that she had diarrhea last night. She also brought up that her port was placed last Monday and will need to be flushed tomorrow. Review of Systems Constitutional: + chills; no fever Eyes: denies vision changes Respiratory: + cough denies shortness of breath Cardiovascular: no chest pain and no palpitations Gastrointestinal: + nausea; no vomiting Genitourinary: + urinary incontinence; no dysuria, no urinary frequency and no urinary urgency Neurologic: + headache(s) Physical Exam Physical Exam: Constitutional: lying in bed, NAD Neuro: alert and oriented, goal directed conversation CV: RRR, no m/r/g appreciated Resp: CTAB Abd: TTP left lower quadrant on deep palpation, worse than RLQ Skin: warm, dry, intact, no rashes Ext: nTTP, negative Homans Results & Data Vital Signs (Past 12 Hours) Vital Signs Temp Pulse Pulse Resp BP Pulse Ox 05/11/19 15:18 36.5 C 82 16 161/86 H 93 05/11/19 07:34 37.0 C 79 16 172/81 H 94 Resident Activity Tracking Resident Involvement: Resident Care Provided Care Provided: Adult Hospital Medicine (1) Hypothyroidism Hypothyroidism type: unspecified Qualified Code(s): E03.9 - Hypothyroidism, unspecified (2) GERD (gastroesophageal reflux disease) Esophagitis presence: without esophagitis Qualified Code(s): K21.9 - Gastro- esophageal reflux disease without esophagitis (3) HTN (hypertension) Hypertension type: essential hypertension Qualified Code(s): I10 - Essential (primary) hypertension (4) Asthma Asthma complication type: unspecified Asthma persistence: unspecified Asthma severity: unspecified severity Qualified Code(s): J45.909 - Unspecified asthma, uncomplicated
[2019-05-11] MEDS: ENOXAPARIN INJ 40 MG/0.4 ML SYR SQ SCH (20:40)
[2019-05-11] MEDS: SIMVASTATIN 20 MG TAB PO SCH (20:41)
[2019-05-11] MEDS: ONDANSETRON 4 MG OD TAB PO PRN (20:47)
[2019-05-11] MEDS: ALUMINUM/MAGNESIUM SUSP 30 ML UDC PO PRN (21:09)
[2019-05-12] MEDS: SODIUM CHLORIDE 0.9% 1000ML 1,000 ML IV SCH (04:14)
[2019-05-12] MEDS: PIPERACILLIN/TAZOBACTAM 4.5 GM in DEXTROSE 5% 100 ML IV SCH ×3 (05:34→21:08)
[2019-05-12] MEDS: LEVOTHYROXINE SODIUM 50 MCG TABLET PO SCH (05:35)
[2019-05-12 06:12] LABS: Basophils # (auto) 0.02 K/uL (0-0.2); Basophils % (auto) 0.3 %; Eosinophils # (auto) 0.24 K/uL (0-0.5); Eosinophils % (auto) 3.9 %; Hematocrit (blood only) 34.9 % (37-47); Immature Granulocytes # (auto) 0.01 K/uL (0.00-0.02); Immature Granulocytes % (auto) 0.2 %; Lymphocytes # (auto) 2.07 K/uL (1.2-3.4); Lymphocytes % (auto) 33.5 %; Mean Corpuscular Hemoglobin 25.6 pg (25-34); Mean Corpuscular Hgb Conc 31.5 g/dL (32-36); Mean Corpuscular Volume 81.4 fL (80-100); Mean Platelet Volume 11.2 fL (7.4-10.4); Monocytes % (auto) 11.3 %; Neutrophils # (auto) 3.14 K/uL (1.4-6.5); Neutrophils % (auto) 50.8 %; Platelet Count 263 K/uL (130-400); RDW Coefficient of Variation 18.8 % (11.5-14.5); RDW Standard Deviation 55.9 fL (36.4-46.3); Red Blood Count 4.29 M/uL (4.2-5.4); White Blood Count 6.18 K/uL (4.8-10.8)
[2019-05-12 06:41] LABS: BUN Creatinine Ratio 4.8 (10-20); Calcium 9.7 mg/dl (8.5-10.1); Est GFR (African American) 90.7; Est GFR (Non-African American) 78.2; Potassium 3.4 mmol/L (3.5-5.1)
[2019-05-12] MEDS: PANTOprazole 40 MG TAB PO SCH (09:22)
[2019-05-12] MEDS: FLUTICASONE/SALMETEROL (ADVAIR) 500/50 INH 14 PUFF INH SCH ×2 (09:22→20:59)
[2019-05-12] MEDS: METOCLOPRAMIDE HCL 5 MG TABLET PO SCH (09:23)
[2019-05-12] MEDS: POLYETHYLENE (MIRALAX) 17 GM PACK PO SCH (09:23)
[2019-05-12] MEDS: POTASSIUM CHLORIDE 20 MEQ TABCR PO SCH ×2 (09:23→21:00)
--- NOTE | 2019-05-12 13:01 | Hospitalist Progress Note ---
Date of Service May 12, 2019 Assessment & Plan (1) Diverticulitis: 68 yo F with PMHx recurrent diverticulitis with multiple admissions, CVID, asthma, autonomic dysfunction, hypothyroidism, GERD presents for worsening diverticulitis/colitis despite completion of ertapenem IV antibiotic treatment outpatient. Diverticulitis/Colitis -continuing Zosyn at this time with some improvement in her symptoms per ID 14 day coarse SOT 05/06/2019-05/19/19 EOT -pt is aware that she will be going home with IV Zosyn and will be educated on how to best do this while at home prior to discharge -Pt has continued inflammation of her colon suggesting worsening diverticulitis/ colitis from prior visit. She has been admitted multiple times just this year for diverticulitis which before now has resolved with a longer course of antibiotics due to her immunodeficiency. -Her most recent diverticulitis not only did not improve on outpatient ertapenem but got worse both clinically by the patient's symptoms and on CT Abdomen/Pelvis -Have consulted both Dr. Gross with GI and Dr. Jacobs with ID whose practices follow this patient and appreciate recommendations for best practices moving forward to prevent further recurrence of her diverticulitis. -maintaining diet on low-fiber CVID - Diagnosed with common variable immunodeficiency and receives IVIG through her left sided chest port once monthly. Hypothyroidism - Continue home levothyroxine 50mcg qAM. HTN - Has a history of syncope and is followed by Dr. Carbajal for autonomic dysfunction. - No recent presyncope, pt is running slightly hypertensive. HTN likely convoluted by abdominal pain. No symptoms such as dizziness, visual changes, CP, SOB. - Have hydralazine 10mg q4h PRN SBP >170 Autonomic dysfunction - See HTN above Asthma - Pt without symptoms of SOB or wheezing at this time. - Will continue home Ventolin Q6H PRN SOB/wheezing, Advair Diskus BID scheduled. Hypokalemia - K = 3.4 on 05/13 - Continue home Potassium Chloride 20meq PO BID. - BMP in the AM GERD - pt without symptoms of reflux at this time. - Continue home pantoprazole 40mg qAM. HLD - Continue home simvastatin 20mg daily. DVT: Lovenox Code: full Diet: low fiber (2) Colitis: (3) Common variable hypogammaglobulinemia: (4) Autonomic dysfunction: (5) Hypothyroidism: (6) HTN (hypertension): (7) Asthma: (8) Hypokalemia: (9) Dyslipidemia: (10) GERD (gastroesophageal reflux disease): Supervising Physician Co-Signing Physician Notes Patient seen and examined with PGY-1 Dr. Díaz. Agree with history, exam findings, assessment and plan of care. Tolerating low fiber diet. Feels that she needs another day in the hospital. She and her are hopeful for discharge tomorrow. 1. acute on chronic diverticulitis. continue zosyn. low fiber/full liquid diet. Appreciate GI and ID assistance. Plans for follow up with colorectal surgery for hemicolectomy. 2. Elevated BP in the setting of autonomic issue. No medications. Continue to monitor. Dispo: pending clinical improvement. Hopeful for discharge tomorrow if she continues to be able to tolerate solid, low-fiber foods. Plan for follow up with colorectal surgeon through [facility]SH at [facility] office. Contacted Dr. Gross to let him know that hopeful for discharge on Monday. Subjective Doing well this morning, she ate 3/4 of her breakfast. she did have some indigestion with her dinner last night that she attributes to eating peppers. She noted that when she would go to use the restroom to urinate she would have a bowel movement at the same time. She felt that she was not ready to go home yet. Review of Systems Constitutional: + chills; no fever Eyes: denies vision changes Respiratory: + cough denies shortness of breath Gastrointestinal: no nausea and no vomiting Genitourinary: no dysuria, no urinary frequency, no urinary urgency and no urinary incontinence Neurologic: no headache(s) Physical Exam Physical Exam: Constitutional: lying in bed, NAD Neuro: alert and oriented CV: RRR, s1 s2 nl, no m/r/g Resp: CTAB Abd: TTP left lower abdomen on deep palpation Skin: warm dry intact Ext: not tender to deep palpation, Homans negative Results & Data Vital Signs (Past 12 Hours) Vital Signs Temp Pulse Resp BP Pulse Ox 05/12/19 07:29 37.0 C 85 16 165/81 H 94 Resident Activity Tracking Resident Involvement: Resident Care Provided Care Provided: Adult Hospital Medicine (1) Hypothyroidism Hypothyroidism type: unspecified Qualified Code(s): E03.9 - Hypothyroidism, unspecified (2) GERD (gastroesophageal reflux disease) Esophagitis presence: without esophagitis Qualified Code(s): K21.9 - Gastro- esophageal reflux disease without esophagitis (3) HTN (hypertension) Hypertension type: essential hypertension Qualified Code(s): I10 - Essential (primary) hypertension (4) Asthma Asthma complication type: unspecified Asthma persistence: unspecified Asthma severity: unspecified severity Qualified Code(s): J45.909 - Unspecified asthma, uncomplicated
[2019-05-12] MEDS: ENOXAPARIN INJ 40 MG/0.4 ML SYR SQ SCH (21:00)
[2019-05-12] MEDS: SIMVASTATIN 20 MG TAB PO SCH (21:00)
[2019-05-12] MEDS: ALUMINUM/MAGNESIUM SUSP 30 ML UDC PO PRN (23:29)
[2019-05-13] MEDS: HEPARIN 100 UNIT/ML 5ML FLUSH FLUSH PRN ×2 (01:06→09:38)
[2019-05-13] MEDS: ONDANSETRON 4 MG OD TAB PO PRN (04:27)
[2019-05-13] MEDS: PIPERACILLIN/TAZOBACTAM 4.5 GM in DEXTROSE 5% 100 ML IV SCH ×2 (05:47→13:57)
[2019-05-13] MEDS: LEVOTHYROXINE SODIUM 50 MCG TABLET PO SCH (05:51)
[2019-05-13 06:27] LABS: Hematocrit (blood only) 34.7 % (37-47); Hemoglobin 10.8 g/dL (12.0-16.0); Mean Corpuscular Hemoglobin 25.7 pg (25-34); Mean Corpuscular Hgb Conc 31.1 g/dL (32-36); Mean Corpuscular Volume 82.4 fL (80-100); Mean Platelet Volume 11.5 fL (7.4-10.4); Platelet Count 242 K/uL (130-400); RDW Coefficient of Variation 18.8 % (11.5-14.5); RDW Standard Deviation 56.6 fL (36.4-46.3); Red Blood Count 4.21 M/uL (4.2-5.4)
[2019-05-13 07:00] LABS: BUN Creatinine Ratio 5.4 (10-20); Calcium 10.1 mg/dl (8.5-10.1); Creatinine Clr Calc Pharmacy 71.9 ml/min; Est GFR (African American) 92.1; Est GFR (Non-African American) 79.5; Potassium 3.3 mmol/L (3.5-5.1)
[2019-05-13] MEDS: METOCLOPRAMIDE HCL 5 MG TABLET PO SCH (07:30)
[2019-05-13] MEDS: PANTOprazole 40 MG TAB PO SCH (07:30)
[2019-05-13] MEDS: POLYETHYLENE (MIRALAX) 17 GM PACK PO SCH (07:30)
[2019-05-13] MEDS: FLUTICASONE/SALMETEROL (ADVAIR) 500/50 INH 14 PUFF INH SCH (07:30)
[2019-05-13] MEDS: POTASSIUM CHLORIDE 20 MEQ TABCR PO SCH (07:30)
--- NOTE | 2019-05-13 11:30 | Discharge Summary ---
Date of Service May 13, 2019 Admission HPI Per Admitting Provider 68 yo F PMHx recurrent diverticulitis most recent admission 10 days ago, common variable immunodeficiency, asthma, GERD, autonomic dysfunction who presented to the ED for nausea and vomiting with sasociated abdominal pain in the setting of recent diverticulitis treated outpatient with Ertapenem. In ED given Zosyn, IV fluids, Zofran. CT Abdomen Pelvis showed worsening of her diverticulitis/colitis. Our team consulted for admission. On interview patient states that she was last discharged from [facility] for similar complaints and diagnosed with recurrent diverticulitis and placed on IV ertapenem which she was getting outpatient at the [facility]. She completed her ertapenem 05/01/19 and between discharge and completion of her Abx she did not feel any alleviation of her symptoms. Early Monday morning she had several waves of severe abdominal pain with nausea and ultimate NBNB emesis. She also had some episodes of diarrhea, also nonbloody. Throughout Monday could not keep any solids down and just had monster salo throughout the day. Then early this AM had the same series of complaints occur again which prompted her coming to the hospital. Throughout this process denies fevers or chills, chest pain, shortness of breath. Patient follows with Dr. Gross and with Dr. Jewell given her outpatient IV antibiotics. Principal Diagnosis Chronic Colitis Discharge Exam Constitutional well developed and well nourished Eyes PERRL, conjunctivae normal, anicteric sclerae Respiratory normal respiratory effort, lungs clear to auscultation Cardiovascular RRR, no murmur, no edema Gastrointestinal (Abdomen) Inspection/Auscultation: normal bowel sounds Percussion/Palpation: + guarding and abdomen soft; abdomen nontender and no hepatosplenomegaly Discharge Data Allergies Allergy/AdvReac Type Severity Reaction Status Date / Time levofloxacin Allergy Severe Anaphylaxis Verified 05/05/19 08:40 aspirin Allergy Intermediate HIVES Verified 05/05/19 08:40 house dust Allergy Intermediate ASTHMA Verified 05/05/19 08:40 TRIGGER pollen extracts Allergy Intermediate SHORTNESS Verified 05/05/19 08:40 OF BREATH montelukast [From Singulair] Allergy Unknown Unknown Verified 05/05/19 08:40 erythromycin base AdvReac Intermediate NAUSEA, Verified 05/05/19 08:40 DRY HEAVES fluticasone AdvReac Mild DIZZINESS Verified 05/05/19 08:40 Consultations 05/05/19 09:48 ED Decision to Admit Stat 05/05/19 12:59 Consult Gastroenterology Routine 05/05/19 13:10 Consult Infectious Diseases Routine 05/06/19 11:21 Consult General Surgery Routine Ordered Studies 05/05/19 06:52 CT abd pelvis IV con only Stat Hospital Course (1) Diverticulitis: 68 yo F with PMHx recurrent diverticulitis with multiple admissions, CVID, asthma, autonomic dysfunction, hypothyroidism, GERD presents for worsening diverticulitis/colitis despite completion of ertapenem IV antibiotic treatment outpatient. Diverticulitis/Colitis -continuing Zosyn per ID 14 day coarse SOT 05/06/2019-05/19/19 EOT -pt is aware that she will be going home with IV Zosyn and will be educated on how to best do this while at home prior to discharge -Pt has continued inflammation of her colon suggesting worsening diverticulitis/colitis from prior visit. She has been admitted multiple times just this year for diverticulitis which before now has resolved with a longer course of antibiotics due to her immunodeficiency. -Her most recent diverticulitis not only did not improve on outpatient ertapenem but got worse both clinically by the patient's symptoms and on CT Abdomen/Pelvis -Have consulted both Dr. Gross with GI and Dr. Jacobs with ID whose practices follow this patient and appreciate recommendations for best practices moving forward to prevent further recurrence of her diverticulitis. -continue low-fiber diet CVID - Diagnosed with common variable immunodeficiency and receives IVIG through her left sided chest port once monthly. Hypothyroidism - Continue home levothyroxine 50mcg qAM. HTN - Has a history of syncope and is followed by Dr. Carbajal for autonomic dysfunction. - No recent presyncope, pt is running slightly hypertensive. HTN likely convoluted by abdominal pain. No symptoms such as dizziness, visual changes, CP, SOB. - Have hydralazine 10mg q4h PRN SBP >170 Autonomic dysfunction - See HTN above Asthma - Pt without symptoms of SOB or wheezing at this time. - Will continue home Ventolin Q6H PRN SOB/wheezing, Advair Diskus BID scheduled. Hypokalemia - K = 3.4 on 05/13 - Continue home Potassium Chloride 20meq PO BID. - BMP in the AM GERD - pt without symptoms of reflux at this time. - Continue home pantoprazole 40mg qAM. HLD - Continue home simvastatin 20mg daily. (2) Colitis: (3) Common variable hypogammaglobulinemia: (4) Autonomic dysfunction: (5) Hypothyroidism: (6) HTN (hypertension): (7) Asthma: (8) Hypokalemia: (9) Dyslipidemia: (10) GERD (gastroesophageal reflux disease): Total Time Total Time Spent Total Time Spent (In Minutes): <30 Discharge Plan Discharge Items Patient Disposition: Home - Home Health Services Reason For Visit: NAUSEA, VOMITING, ABDOMINAL PAIN Discharge Diagnosis: Chronic Colitis Activity: Per Instructions section Non-emergency contact: Primary Care Provider, Surgeon and Curing Machine Operator Call non-emergency contact if: you have any medication questions and your symptoms worsen Follow-up/Referrals: Joselito Harrington MD [Primary Care Provider] - 05/17/19 9:45 am (Please, follow up with Dr. Harrington on MondayMay 17 at 9:45 am. *If you need to change this appointment, call the office at [phone].) Justen Ken MD [Outside Practitioners] - 05/17/19 1:45 pm (Please, follow up at [facility] with Dr. Ken on MondayMay 17 at 1:45 pm. *The office is located at [address] [place] [address], next to [facility]. If you need to change this appointment, call the office at [phone].) Diet: Low Fiber Addtl Attending Provider Instructions: You were admitted for worsening of your abdominal pain, and given the chronic nature to your infections; you were re-started on IV antibiotics and after this you had consistent improvement in the pain and your ability to tolerate food. You will be continued on the antibiotic infusions until 05/19 in preparation for your surgery. It is important that you follow-up at the [facility] to meet with the Colorectal surgeon. Pending Studies at Discharge: No Stand-Alone Forms: [facility], Opioid Pain Management, Smoking Cessation Medications and DC Order Prescriptions: Continued triamcinolone acetonide [Nasacort] 55 mcg aerosol,spray 2 spray Intranasal QAM Qty: 16.9 RF: 3 simvastatin 20 mg tablet 20 mg PO HS Qty: 90 RF: 3 albuterol sulfate [Ventolin HFA] 90 mcg/actuation HFA aerosol inhaler 2 puff INHALATION Q4H PRN (Reason: Shortness Of Breath) Qty: 1 RF: 11 ranitidine HCl 300 mg tablet PO Qty: 30 RF: 0 triamterene-hydrochlorothiazid 37.5-25 mg tablet PO Qty: 30 RF: 0 plecanatide 3 mg tablet PO Qty: 90 RF: 0 lansoprazole 30 mg capsule,delayed release(DR/EC) PO Qty: 90 RF: 0 albuterol sulfate 2.5 mg /3 mL (0.083 %) Solution For Nebulization 2.5 mg inhalation Q6H PRN (Reason: Shortness Of Breath) RF: 0 cetirizine [Zyrtec] 10 mg Tablet 10 mg PO QAM RF: 0 fludrocortisone 0.1 mg Tablet 0.1 mg PO QAM RF: 0 fluticasone propion-salmeterol [Advair Diskus] 500-50 mcg/dose Blister With Device 1 inh INHALATION BID RF: 0 levothyroxine 50 mcg Tablet 50 mcg PO QAM RF: 0 immune globulin,gamma(IgG)ifas 10 % Solution 1 dose IV MONTHLY RF: 0 Ensure Liquid 1 - 2 can PO BID RF: 0 potassium chloride [Klor-Con M20] 20 mEq tablet,ER particles/crystals 20 meq PO BID RF: 0 monster (Zingiber officinalis) 250 mg Capsule PO DAILY RF: 0 ondansetron 4 mg tablet,disintegrating 4 mg PO Q6H PRN (Reason: nausea and vomiting) Qty: 12 RF: 0 Probiotic 5 billion cell Capsule, Sprinkle 1 cap PO DAILY RF: 0 pantoprazole 40 mg Tablet,Delayed Release (Dr/Ec) 40 mg PO QAM Qty: 30 RF: 0 oxycodone-acetaminophen 5-325 mg tablet 1 tab PO Q8H PRN (Reason: pain) Qty: 14 RF: 0 metoclopramide HCl 5 mg tablet 5 mg PO DAILY Qty: 30 RF: 0 Discharge Orders: Discharge Order (Routine); Ordered 05/13/19 Ordered By: Avel Harvey/Other Patient Handouts: Diverticulitis Dc Admission Data Admit Date/Time: 05/05/19 11:00 Attending Provider: Sg Roman Admit Provider: Cassie Oh Primary Care Provider: Joselito Harrington Other Providers: Gerard Cooper ; Lincoln Gross ; Hyun Jacobs ; Terry Hay ; Marquita Cotto ; [facility] Other Interventions: Discharge Summary Assessment (RN) Last Done: 05/13/19 11:47 DC Date/Time DO NOT enter until pt leaves facility: 05/13/19 15:43 Supervising Physician Co-Signing Physician Notes I personally examined the patient and verified all osman points of history and exam, discussed case, and agree with decision making with Dr Yadav. feeling better pain better controlled up to going home. vitals noted nad heent nc at mmm breathing unlabored no accessory muscles good effort recurrent/refractory diverticulitis - safe for home today on zosyn. close outpt surgical f/u otherwise as above Resident Activity Tracking Resident Involvement: Resident Care Provided Care Provided: Adult Hospital Medicine
[2019-05-13 15:16] VITALS: BP 166/102; PULSE 81; TEMP 97.5; O2SAT 95
--- NOTE | 2019-05-13 19:11 | Billing Data ---
Coding Level of Care Code D/C Day Management <30 mins
== END 2019-05-13 15:43 | disposition home health service (06) | DRG 392 ==
LOC: ED 06:04 → 3N 11:00 → SUATTDRO 11:00 → 3N 12:08

== ENCOUNTER 2019-05-29 04:11 | Inpatient (IN) ==
[2019-05-29] MEDS ORDERED: ACETAMINOPHEN 1,000 MG/100 ML VIAL IV STA (04:30)
[2019-05-29] MEDS ORDERED: HYDROmorphone INJ 0.5 MG/0.5 ML SYR IV PRN (04:30)
[2019-05-29] MEDS ORDERED: METOCLOPRAMIDE HCL INJ 5 MG/ML 2 ML VIAL IV STA (04:30)
[2019-05-29 05:10] LABS: Basophils # (auto) 0.02 K/uL (0-0.2); Basophils % (auto) 0.3 %; Eosinophils % (auto) 2.7 %; Hematocrit (blood only) 37.4 % (37-47); Hemoglobin 11.8 g/dL (12.0-16.0); Immature Granulocytes # (auto) 0.01 K/uL (0.00-0.02); Immature Granulocytes % (auto) 0.1 %; Lymphocytes # (auto) 1.42 K/uL (1.2-3.4); Lymphocytes % (auto) 19.3 %; Mean Corpuscular Hemoglobin 26.2 pg (25-34); Mean Corpuscular Hgb Conc 31.6 g/dL (32-36); Mean Corpuscular Volume 83.1 fL (80-100); Monocytes # (auto) 0.76 K/uL (0.11-0.59); Monocytes % (auto) 10.4 %; Neutrophils # (auto) 4.93 K/uL (1.4-6.5); Neutrophils % (auto) 67.2 %; Platelet Count 235 K/uL (130-400); RDW Coefficient of Variation 18.9 % (11.5-14.5); RDW Standard Deviation 58.1 fL (36.4-46.3); White Blood Count 7.34 K/uL (4.8-10.8)
[2019-05-29 05:23] LABS: Partial Thromboplastin Ratio 0.9; Partial Thromboplastin Time 23.2 Seconds (21.0-31.0); Prothrombin Time 10.7 Seconds (9.0-12.0)
[2019-05-29 05:24] LABS: iSTAT Creatinine 0.8 mg/dl (0.6-1.3); iSTAT Hemoglobin 11.2 g/dl (12.0-16.0); iSTAT Ionized Calcium 1.37 mmol/l (1.12-1.32); iSTAT Potassium 3.2 mEq/L (3.3-5.0)
[2019-05-29 05:29] LABS: BUN Creatinine Ratio 21.3 (10-20); Calcium 10.5 mg/dl (8.5-10.1); Creatinine Clr Calc Pharmacy 74.2 ml/min; Est GFR (African American) 85.3; Est GFR (Non-African American) 73.6; Potassium 3.3 mmol/L (3.5-5.1)
[2019-05-29 05:32] LABS: Albumin Globulin Ratio 0.9 (0.9-2); Bilirubin,Total 0.5 mg/dl (0.2-1); Globulin 3.5 gm/dl (2.5-4.0); Total Protein 6.5 gm/dl (6.4-8.2)
--- NOTE | 2019-05-29 05:37 | Emergency Department Note ---
History of Present Illness General Chief complaint: Nausea Stated complaint: NAUSEA/VOMITING/DIARRHEA Time Seen by Provider: 05/29/19 04:18 Source: patient, family, RN notes reviewed and old records reviewed Mode of arrival: ambulatory Limitations: no limitations History of Present Illness Provider complaint: Abdominal pain Onset (ago): hour(s) 6 Location: abdomen Radiation: back Severity: moderate and similar to prior episodes Pain Consistency: + colicky Maximum Pain Intensity: 3 Current Pain Intensity: 3 Quality: + aching Relieved By: + rest Exacerbated By: + movement Associated symptoms: + fever/chills, + loss of appetite and + nausea/vomiting Treatments prior to arrival: none This is a 68-year-old female who presents emergency department complaining of abdominal pain in the left lower quadrant that has been ongoing for the past several days. Patient recently had 2 admissions to [facility] and was started on IV antibiotics including ertapenem as well as Zosyn for complicated diverticulitis. Patient is immunocompromised. She was told by Dr. Gross that her bowel is black. She reports she was vomiting earlier this evening. She has not taken anything for the pain and has not taken Zofran for the vomiting. Home Medications Home Medications Medication Instructions Recorded Confirmed Type albuterol sulfate 2.5 mg INHALATION Q6H PRN 06/09/18 05/29/19 History cetirizine [Zyrtec] 10 mg PO QAM 06/09/18 05/29/19 History fludrocortisone 0.1 mg PO QAM 06/09/18 05/29/19 History fluticasone propion-salmeterol 1 inh INHALATION BID 06/09/18 05/29/19 History [Advair Diskus] levothyroxine 50 mcg PO QAM 06/09/18 05/29/19 History immune globulin,gamma(IgG)ifas 1 dose IV MONTHLY 09/08/18 05/29/19 History Ensure 1 - 2 can PO BID 10/28/18 05/29/19 History triamcinolone acetonide 55 mcg 2 spray INTRANASAL QAM #16.9 ml 01/22/19 05/29/19 Rx nasal spray aerosol albuterol sulfate 90 mcg/actuation 2 puff INHALATION Q4H PRN #1 02/22/19 05/29/19 Rx aerosol inhaler inhaler monster (Zingiber officinalis) 250 mg PO DAILY 04/02/19 05/29/19 History ondansetron 4 mg PO Q6H PRN #12 tab 04/02/19 05/29/19 Rx potassium chloride [Klor-Con M20] 20 meq PO BID 04/02/19 05/29/19 History Probiotic 1 cap PO DAILY 04/18/19 05/29/19 History metoclopramide HCl 5 mg PO DAILY #30 tab 04/23/19 05/29/19 Rx oxycodone-acetaminophen 1 tab PO Q8H PRN #14 tab 04/23/19 05/29/19 Rx pantoprazole 40 mg PO QAM #30 tab 04/23/19 05/29/19 Rx lansoprazole 30 mg capsule,delayed 30 mg PO DAILY #90 cap 05/07/19 05/29/19 History release ranitidine HCl 300 mg tablet 300 mg PO HS #30 tab 05/07/19 05/29/19 History triamterene 37.5 1 tab PO DAILY #30 tab 05/07/19 05/29/19 History mg-hydrochlorothiazide 25 mg tablet simvastatin 20 mg tablet 20 mg PO HS #90 tab 05/08/19 05/29/19 Rx plecanatide [Trulance] 3 mg PO DAILY 05/29/19 05/29/19 History promethazine 12.5 mg PO TID PRN 05/29/19 05/29/19 History Allergies Allergy/AdvReac Type Severity Reaction Status Date / Time levofloxacin Allergy Severe Anaphylaxis Verified 05/29/19 06:46 aspirin Allergy Intermediate HIVES Verified 05/29/19 06:46 house dust Allergy Intermediate ASTHMA Verified 05/29/19 06:46 TRIGGER pollen extracts Allergy Intermediate SHORTNESS Verified 05/29/19 06:46 OF BREATH montelukast [From Singulair] Allergy Unknown Unknown Verified 05/29/19 06:46 erythromycin base AdvReac Intermediate NAUSEA, Verified 05/29/19 06:46 DRY HEAVES fluticasone AdvReac Mild DIZZINESS Verified 05/29/19 06:46 Past Med/Surg History Medical History Asthma (Chronic) Common variable immunodeficiency GERD (gastroesophageal reflux disease) HTN (hypertension) Hx of deep venous thrombosis (Resolved) Hx pulmonary embolism (Resolved) Hypothyroidism (Chronic) IBS (irritable bowel syndrome) Surgical History H/O shoulder surgery H/O vaginal surgery Correction History of total knee arthroplasty S/P vaginal hysterectomy Family History Grandmother Leukemia Stroke Mother Stroke Other Family history non-contributory Hypertension Tuberculosis Social History Preferred Language: Nepali Communication Ability: Effective 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 Beliefs That Will Affect Care: None marital status: Current Living Situation: Spouse Feels Safe at Home: Yes Smoking Status: Former smoker Tobacco Type: cigarettes ; Second Hand Exposure: Yes (childhood) ; Hx Alcohol Use: Yes (rarely) Alcohol type: wine Hx Substance Use: No Review of Systems A total of 10 systems reviewed and were otherwise negative Physical Exam Vital Signs Vital Signs - 24 hr 05/29/19 04:20 05/29/19 05:17 05/29/19 05:47 Temperature 36.7 C Temperature Source Oral Pulse Rate 97 H Pulse Rate [Bilateral] 88 90 Pulse Rhythm Regular Pulse Rhythm [Bilateral] Regular Regular Pulse Strength Normal Pulse Strength [Bilateral] Normal Normal Respiratory Rate 18 18 18 Respiratory Effort / Characteristics Non-Labored Spontaneous Non-Labored Spontaneous Non-Labored Spontaneous Respiratory Depth Normal Normal Normal Respiratory Pattern Regular Regular Blood Pressure 169/103 H Blood Pressure [Right Arm] 151/96 H 179/93 H Blood Pressure Mean 125 Blood Pressure Mean [Right Arm] 114 121 Blood Pressure Position Sitting Blood Pressure Position [Right Arm] Lying Lying Pulse Oximetry 95 96 93 Oxygen Delivery Method Room Air Room Air Room Air Oxygen Flow Rate Sepsis Recent Fever Within 48 Hours No Sepsis Action Taken by Nursing No Action Required 05/29/19 06:42 Temperature Temperature Source Pulse Rate Pulse Rate [Bilateral] 85 Pulse Rhythm Pulse Rhythm [Bilateral] Regular Pulse Strength Pulse Strength [Bilateral] Normal Respiratory Rate 18 Respiratory Effort / Characteristics Non-Labored Spontaneous Respiratory Depth Normal Respiratory Pattern Regular Blood Pressure Blood Pressure [Right Arm] 168/97 H Blood Pressure Mean Blood Pressure Mean [Right Arm] 120 Blood Pressure Position Blood Pressure Position [Right Arm] Lying Pulse Oximetry 95 Oxygen Delivery Method Nasal Cannula Oxygen Flow Rate 2 Sepsis Recent Fever Within 48 Hours Sepsis Action Taken by Nursing GENERAL: Patient is a healthy-appearing well-nourished female HEAD: Normocephalic atraumatic EYES: Ocular movements intact pupils equal and react to light OROPHARYNX mucous membranes are moist no exudates present no erythema or edema present NECK: Supple no nuchal rigidity CHEST: Good equal expansion LUNGS: Clear and equal to auscultation CARDIAC: Normal S1 and S2 ABDOMEN: Soft very tender LLQ + guarding, +rebound BACK: No CVA tenderness EXTREMITIES: No pain upon palpation normal muscle strength in all groups no clubbing cyanosis or edema NEURO: Patient is following commands is answering questions appropriately. Alert and oriented x3 Cranial Nerves 2-12 grossly intact Course Administered Medications Hydromorphone HCl (Dilaudid) 0.5 mg IV Q15M PRN PRN Reason: Pain Stop: 06/12/19 04:29 Last Admin: 05/29/19 05:00 Dose: 0.5 mg Documented by: [id number] Ioversol (Optiray 320 100ml) 100 ml IV ONCE PRN PRN Reason: Interaction Checking Stop: 06/02/19 05:43 Last Admin: 05/29/19 05:45 Dose: 93 ml Documented by: [id number] Discontinued Medications Acetaminophen (Ofirmev) 1,000 mg in 100 mls @ 400 mls/hr IV NOW STA Stop: 05/29/19 04:44 Last Infusion: 05/29/19 05:16 Dose: 0 mls/hr Documented by: [id number] Admin: 05/29/19 04:56 Dose: 400 mls/hr Documented by: [id number] Metoclopramide HCl (Reglan) 10 mg IV NOW STA Stop: 05/29/19 04:31 Last Admin: 05/29/19 04:57 Dose: 10 mg Documented by: [id number] Medical Decision Making Differential Diagnosis My differential diagnosis includes but is not limited to: Diverticulitis, small bowel obstruction, gastroenteritis, ruptured AAA, kidney stone, ischemic bowel Medical Records Attestation: I reviewed the patient's medical records. Home Medications Current Medication List: was personally reviewed by me Laboratory Data Attestation: I reviewed the patient's lab results. Result diagrams: 05/29/19 04:58 05/29/19 04:58 Lab Results 05/29/19 05/29/19 05/29/19 Range/Units 04:58 04:58 04:58 WBC 7.34 (4.8-10.8) K/uL RBC 4.50 (4.2-5.4) M/uL Hgb 11.8 L (12.0-16.0) g/dL POC Hgb (12.0-16.0) g/dl Hct 37.4 (37-47) % POC Hct (37-47) % MCV 83.1 (80-100) fL MCH 26.2 (25-34) pg MCHC 31.6 L (32-36) g/dL RDW Std Deviation 58.1 H (36.4-46.3) fL RDW Coeff of Mandeep 18.9 H (11.5-14.5) % Plt Count 235 (130-400) K/uL Immature Gran % (Auto) 0.1 % Neut % (Auto) 67.2 % Lymph % (Auto) 19.3 % [place] % (Auto) 10.4 % Eos % (Auto) 2.7 % Baso % (Auto) 0.3 % Immature Gran # (Auto) 0.01 (0.00-0.02) K/uL Neut # (Auto) 4.93 (1.4-6.5) K/uL Lymph # (Auto) 1.42 (1.2-3.4) K/uL [place] # (Auto) 0.76 H (0.11-0.59) K/uL Eos # (Auto) 0.20 (0-0.5) K/uL Baso # (Auto) 0.02 (0-0.2) K/uL PT 10.7 (9.0-12.0) Seconds INR 1.0 (0.9-1.1) APTT 23.2 (21.0-31.0) Seconds PTT Ratio 0.9 POC Sodium (135-144) mEq/L Sodium 141 (136-145) mmol/L POC Potassium (3.3-5.0) mEq/L Potassium 3.3 L (3.5-5.1) mmol/L POC Chloride (101-112) mEq/L Chloride 110 H (98-107) mmol/L Carbon Dioxide 22 (21-32) mmol/L POC Total CO2 (24-31) mEq/l Anion Gap 9.0 (3-11) POC Anion Gap (16-25) mmol/L POC BUN (7-18) mg/dl BUN 17 (7-18) mg/dl Creatinine 0.81 (0.6-1.2) mg/dl POC Creatinine (0.6-1.3) mg/dl Est Cr Clr Drug Dosing 74.2 ml/min Est GFR ( Amer) 85.3 Est GFR (Non-Af Amer) 73.6 BUN/Creatinine Ratio 21.3 H (10-20) Glucose 130 H (70-99) mg/dl POC Glucose (other) (70-99) mg/dl Lactate (0.4-2.0) mmol/L Calcium 10.5 H (8.5-10.1) mg/dl POC Ioniz Calcium Michael (1.12-1.32) mmol/l Total Bilirubin 0.5 (0.2-1) mg/dl AST 43 H (15-37) U/L ALT 47 (12-78) U/L Alkaline Phosphatase 139 H (45-117) U/L Total Protein 6.5 (6.4-8.2) gm/dl Albumin 3.0 L (3.4-5.0) gm/dl Globulin 3.5 (2.5-4.0) gm/dl Albumin/Globulin Ratio 0.9 (0.9-2) 05/29/19 05/29/19 Range/Units 04:58 05:09 WBC (4.8-10.8) K/uL RBC (4.2-5.4) M/uL Hgb (12.0-16.0) g/dL POC Hgb 11.2 L (12.0-16.0) g/dl Hct (37-47) % POC Hct 33 L (37-47) % MCV (80-100) fL MCH (25-34) pg MCHC (32-36) g/dL RDW Std Deviation (36.4-46.3) fL RDW Coeff of Mandeep (11.5-14.5) % Plt Count (130-400) K/uL Immature Gran % (Auto) % Neut % (Auto) % Lymph % (Auto) % [place] % (Auto) % Eos % (Auto) % Baso % (Auto) % Immature Gran # (Auto) (0.00-0.02) K/uL Neut # (Auto) (1.4-6.5) K/uL Lymph # (Auto) (1.2-3.4) K/uL [place] # (Auto) (0.11-0.59) K/uL Eos # (Auto) (0-0.5) K/uL Baso # (Auto) (0-0.2) K/uL PT (9.0-12.0) Seconds INR (0.9-1.1) APTT (21.0-31.0) Seconds PTT Ratio POC Sodium 139 (135-144) mEq/L Sodium (136-145) mmol/L POC Potassium 3.2 L (3.3-5.0) mEq/L Potassium (3.5-5.1) mmol/L POC Chloride 109 (101-112) mEq/L Chloride (98-107) mmol/L Carbon Dioxide (21-32) mmol/L POC Total CO2 23 L (24-31) mEq/l Anion Gap (3-11) POC Anion Gap 12.0 L (16-25) mmol/L POC BUN 15 (7-18) mg/dl BUN (7-18) mg/dl Creatinine (0.6-1.2) mg/dl POC Creatinine 0.8 (0.6-1.3) mg/dl Est Cr Clr Drug Dosing ml/min Est GFR ( Amer) Est GFR (Non-Af Amer) BUN/Creatinine Ratio (10-20) Glucose (70-99) mg/dl POC Glucose (other) 126 H (70-99) mg/dl Lactate 1.1 (0.4-2.0) mmol/L Calcium (8.5-10.1) mg/dl POC Ioniz Calcium Michael 1.37 H (1.12-1.32) mmol/l Total Bilirubin (0.2-1) mg/dl AST (15-37) U/L ALT (12-78) U/L Alkaline Phosphatase (45-117) U/L Total Protein (6.4-8.2) gm/dl Albumin (3.4-5.0) gm/dl Globulin (2.5-4.0) gm/dl Albumin/Globulin Ratio (0.9-2) Imaging Data Radiologist's Impression: CT abdomen pelvis with contrast: Comparison CT dated 05/05/2019 Diverticulosis with focal thickening of the sigmoid colon and surrounding fat stranding suggestive of acute diverticulitis versus colitis. Compared to prior study there is slightly more thickening. No abscess or extraluminal air. Underlying malignancy not excluded. Possible fatty infiltration of the liver. Gallbladder, pancreas and spleen are unremarkable. Bilateral renal hypodense lesions which may represent cysts; some are too small to characterize. Blood Pressure Blood Pressure Findings: Elevated blood pressure Blood Pressure Disposition: elevated BP felt to be situational MDM Narrative This is an immunocompromise 68-year-old female who presents emergency department complaining of abdominal pain. The patient had a recent hospital stay and was placed on both ertapenem as well as Zosyn. She reports back to the emergency department complaining of left lower quadrant abdominal pain. Because of the patient's recent history she was sent for CAT scan the abdomen pelvis. This was concerning for worsening diverticulitis. She was given Dilaudid here in the emergency department and started on IV Zosyn. I did discuss the case with the hospitalist service who did agree to admit the patient. Patient family were in agreement with the treatment plan. Impression & Plan Diverticulitis Discharge Plan Visit Data Chief Complaint: Nausea Stated Complaint: NAUSEA/VOMITING/DIARRHEA Other Complaint: Diarrhea Vomiting ED Provider: Timo Prajapati Discharge Problem: Diverticulitis Forms Stand Alone Forms: My [facility] Prescriptions Prescriptions: No Action triamcinolone acetonide [Nasacort] 55 mcg aerosol,spray 2 spray Intranasal QAM Qty: 16.9 RF: 3 simvastatin 20 mg tablet 20 mg PO HS Qty: 90 RF: 3 albuterol sulfate [Ventolin HFA] 90 mcg/actuation HFA aerosol inhaler 2 puff INHALATION Q4H PRN (Reason: Shortness Of Breath) Qty: 1 RF: 11 ranitidine HCl 300 mg tablet 300 mg PO HS Qty: 30 RF: 0 triamterene-hydrochlorothiazid 37.5-25 mg tablet 1 tab PO DAILY Qty: 30 RF: 0 lansoprazole 30 mg capsule,delayed release(DR/EC) 30 mg PO DAILY Qty: 90 RF: 0 albuterol sulfate 2.5 mg /3 mL (0.083 %) Solution For Nebulization 2.5 mg inhalation Q6H PRN (Reason: Shortness Of Breath) RF: 0 cetirizine [Zyrtec] 10 mg Tablet 10 mg PO QAM RF: 0 fludrocortisone 0.1 mg Tablet 0.1 mg PO QAM RF: 0 fluticasone propion-salmeterol [Advair Diskus] 500-50 mcg/dose Blister With Device 1 inh INHALATION BID RF: 0 levothyroxine 50 mcg Tablet 50 mcg PO QAM RF: 0 immune globulin,gamma(IgG)ifas 10 % Solution 1 dose IV MONTHLY RF: 0 Ensure Liquid 1 - 2 can PO BID RF: 0 potassium chloride [Klor-Con M20] 20 mEq tablet,ER particles/crystals 20 meq PO BID RF: 0 monster (Zingiber officinalis) 250 mg Capsule 250 mg PO DAILY RF: 0 ondansetron 4 mg tablet,disintegrating 4 mg PO Q6H PRN (Reason: nausea and vomiting) Qty: 12 RF: 0 Probiotic 5 billion cell Capsule, Sprinkle 1 cap PO DAILY RF: 0 pantoprazole 40 mg Tablet,Delayed Release (Dr/Ec) 40 mg PO QAM Qty: 30 RF: 0 oxycodone-acetaminophen 5-325 mg tablet 1 tab PO Q8H PRN (Reason: pain) Qty: 14 RF: 0 metoclopramide HCl 5 mg tablet 5 mg PO DAILY Qty: 30 RF: 0 Trulance 3 mg tablet 3 mg PO DAILY RF: 0 promethazine 12.5 mg tablet 12.5 mg PO TID PRN (Reason: Nausea) RF: 0
[2019-05-29] MEDS ORDERED: IOVERSOL 100ml IV PRN (05:44)
--- NOTE | 2019-05-29 06:37 | XRay Report ---
XR chest 1V portable CLINICAL HISTORY: Sepsis COMPARISON STUDY: 04/02/2019 FINDINGS: The cardiac and mediastinal contours remain stable. There is mild interstitial prominence w ithout evidence of overt failure. There is a left-sided A-Port catheter present. Electronic device pr ojects over the left chest likely representing an event recorder. There is no focal pulmonary consoli dation. There are no pleural effusions.[ IMPRESSION: No active disease in the chest. Electronically signed by: Shin Robbins M.D. 05/29/2019 6:36 AM
--- NOTE | 2019-05-29 06:54 | CT Scan Report ---
CT abd pelvis IV con only CLINICAL HISTORY: Left lower quadrant abdominal pain COMPARISON STUDY: 05/05/2019 TECHNIQUE: The patient was scanned in a dynamic helical fashion during intravenous administration of 93 cc of Optiray 320 A dose lowering technique was utilized adhering to the principles of ALARA. CT DOSE: 965.12 mGy.cm FINDINGS: Lower chest: There are basilar atelectatic changes. There is small hiatal hernia Liver: There is mild hepatic steatosis. No focal masses are visualized. There is no ductal dilatation . Gallbladder: Unremarkable. Spleen: Normal in size and attenuation. Pancreas: Unremarkable. Adrenal glands: Unremarkable. Kidneys: There are multiple bilateral hypodense renal masses consistent with cysts. The largest arise s from the lower pole of the right kidney measuring 3.7 cm. There is no hydronephrosis. Bowel: There are no transition zone to indicate bowel obstruction. The appendix appears normal. There is extensive colonic diverticulosis. There is sigmoid wall thickening with minimal infiltration of t he perisigmoid fat. The findings are consistent with sigmoid diverticulitis. There are no fluid colle ctions to indicate an abscess. Peritoneum: There is no intraperitoneal free air or abdominal ascites. Vasculature: The abdominal aorta is normal in course and caliber. Adenopathy: None. Pelvic viscera: The uterus is surgically absent. There is mild perivesical stranding, finding which i s felt to be secondary to the sigmoid diverticulitis. Skeletal structures: There is a 1 cm L4 sclerotic lesion, likely representing a bone island. IMPRESSION: 1. No evidence of bowel obstruction. No evidence of free air 2. Normal appendix 3. Continued evidence of sigmoid diverticulitis. Follow-up recommended to exclude an underlying laten cy. Electronically signed by: Shin Robbins M.D. 05/29/2019 6:52 AM
[2019-05-29] MEDS ORDERED: PIPERACILL/TAZOBAC CONSULT ACTIVE PRN (07:02)
[2019-05-29] MEDS ORDERED: PIPERACILLIN/TAZOBACTAM 4.5 GM/120 ML BAG IV ONE (07:02)
--- NOTE | 2019-05-29 07:57 | History & Physical Report ---
Date of Service May 29, 2019 Assessment & Plan (1) Diverticulitis: Ms. Cruz is a 68 year old pleasant female with a past medical history of recurrent diverticulitis with multiple admissions, CVID, asthma, autonomic dysfunction, hypothyroidism, GERD, and history of PE who presented to [facility] for diverticulitis. ED course: 4.5 g IV Zosyn, 1 g IV acetaminophen, 10 mg IV metoclopramide, 0.5 mg IV Dilaudid Recurrent Sigmoid Diverticulitis - patient w/a history of numerous admissions for the same, most recently from 10/29 - 11/01, 04/18 - 04/23, 05/05 - 05/13 - She previously failed a course of IV ertapenem, and most recently completed her outpatient regimen of IV Zosyn on 05/19/2019 - CT abdomen and pelvis shows evidence of sigmoid diverticulitis - Not septic, afebrile, normal white cell count - Blood cultures drawn x2 and pending - Patient will be made n.p.o., with maintenance lactated Ringer's at 130 mLs/hour x2 bags - Continue IV Zosyn, started in the emergency department - analgesia: acetaminophen, home perecocet - anti-emetics: IV zosyn, p.o. phenergan - probiotics started given multiple doses of IV abx - Patient has already met with a colorectal surgeon from [place] (Dr. Kne), and has her surgery scheduled for July 15 - We will discuss patient's case with [place], as she will likely require transfer for definitive management given this is her fourth admission for acute diverticulitis in 8 months and her diverticulitis seems to flare-up quickly when she is not on IV antibiotics CVID - Diagnosed with common variable immunodeficiency and receives IVIG through her left sided chest port once monthly - due for next dose on Jun.04 - follows w/Dr. Harrington Hypothyroidism - Continue home levothyroxine Hypertension/Autonomic dysfunction - Reportedly not on anti-hypertensive medications because of her hx of autonomic dysfunction for which she has had episodes of syncope and falls in the past - Follows with Dr. Carbajal - continue home fludrocortisone Asthma - Pt without symptoms of SOB or wheezing at this time - Patient was placed on 2 L of oxygen via nasal cannula in ER, after receiving a dose of Dilaudid - Chest x-ray within normal limits - Will continue home Ventolin and Advair - Last admission for asthma exacerbation was in 2017, has never required intubation/ICU stay Hypokalemia - Potassium 3.3 today - Additional 20mEq of potassium chloride p.o. provided - Continue home Potassium chloride 20meq PO BID GERD - pt without symptoms of reflux at this time. - Continue home pantoprazole 40mg qAM - Home Zantac discontinued in favor of Pepcid Hyperlipidemia - Continue home simvastatin 20mg daily Incidentals seen on imaging - Patient has multiple, bilateral hypodense renal masses, consistent with cysts, with the largest one on the lower pole of the right kidney measuring 3.7 cm. Recommend outpatient follow-up CODE STATUS: Full DVT prophylaxis: Lovenox 40 mg subcutaneous daily Disposition: Admit to med/surg. Possible transfer to [place] (2) Hyperlipidemia: (3) Autonomic dysfunction: (4) Dyslipidemia: (5) Hypothyroidism: (6) GERD (gastroesophageal reflux disease): (7) HTN (hypertension): (8) Common variable immunodeficiency: (9) Asthma: History of Present Illness Chief Complaint: Abdominal Pain Primary Care Provider: Joselito Harrington MD Ms. Cruz is a 68 year old pleasant female with a past medical history of recurrent diverticulitis with multiple admissions, CVID, asthma, autonomic dysfunction, hypothyroidism, GERD, and history of PE who presented to [facility] for diverticulitis. She reports that she has had 6 episodes of diverticulitis in the last year, with her most recent admissions being in October, April, and May 2019. She recently finished a course of IV Zosyn on 05/19/2019 for diverticulitis. She was followed by both Dr. Gross from GI, and Dr. Jacobs from infectious diseases. She has seen a colorectal surgeon at [place], and has a colon resection scheduled on July 15, 2019. After finishing her antibiotic course on 05/19, she reports 2-3 days where she felt good. She stated afterwards, the abdominal pain worsened, and was intermittent over several days. She reports the pain became more constant over the last 3 days, localized to her left lower quadrant, consistent with her previous episodes of diverticulitis. She also endorses vomiting, without the presence of blood, as well as diarrhea. She denies any fever or chills. Of note, she is a non-smoker. She drinks 2 to 3 glasses of wine over a year. She does not use any recreational drugs. Allergies Allergy/AdvReac Type Severity Reaction Status Date / Time levofloxacin Allergy Severe Anaphylaxis Verified 05/29/19 06:46 aspirin Allergy Intermediate HIVES Verified 05/29/19 06:46 house dust Allergy Intermediate ASTHMA Verified 05/29/19 06:46 TRIGGER pollen extracts Allergy Intermediate SHORTNESS Verified 05/29/19 06:46 OF BREATH montelukast [From Singulair] Allergy Unknown Unknown Verified 05/29/19 06:46 erythromycin base AdvReac Intermediate NAUSEA, Verified 05/29/19 06:46 DRY HEAVES fluticasone AdvReac Mild DIZZINESS Verified 05/29/19 06:46 Home Medications Home Medications Medication Instructions Recorded Confirmed Type albuterol sulfate 2.5 mg INHALATION Q6H PRN 06/09/18 05/29/19 History cetirizine [Zyrtec] 10 mg PO QAM 06/09/18 05/29/19 History fludrocortisone 0.1 mg PO QAM 06/09/18 05/29/19 History fluticasone propion-salmeterol 1 inh INHALATION BID 06/09/18 05/29/19 History [Advair Diskus] levothyroxine 50 mcg PO QAM 06/09/18 05/29/19 History immune globulin,gamma(IgG)ifas 1 dose IV MONTHLY 09/08/18 05/29/19 History Ensure 1 - 2 can PO BID 10/28/18 05/29/19 History triamcinolone acetonide 55 mcg 2 spray INTRANASAL QAM #16.9 ml 01/22/19 05/29/19 Rx nasal spray aerosol albuterol sulfate 90 mcg/actuation 2 puff INHALATION Q4H PRN #1 02/22/19 05/29/19 Rx aerosol inhaler inhaler monster (Zingiber officinalis) 250 mg PO DAILY 04/02/19 05/29/19 History ondansetron 4 mg PO Q6H PRN #12 tab 04/02/19 05/29/19 Rx potassium chloride [Klor-Con M20] 20 meq PO BID 04/02/19 05/29/19 History Probiotic 1 cap PO DAILY 04/18/19 05/29/19 History metoclopramide HCl 5 mg PO DAILY #30 tab 04/23/19 05/29/19 Rx oxycodone-acetaminophen 1 tab PO Q8H PRN #14 tab 04/23/19 05/29/19 Rx pantoprazole 40 mg PO QAM #30 tab 04/23/19 05/29/19 Rx lansoprazole 30 mg capsule,delayed 30 mg PO DAILY #90 cap 05/07/19 05/29/19 History release ranitidine HCl 300 mg tablet 300 mg PO HS #30 tab 05/07/19 05/29/19 History triamterene 37.5 1 tab PO DAILY #30 tab 05/07/19 05/29/19 History mg-hydrochlorothiazide 25 mg tablet simvastatin 20 mg tablet 20 mg PO HS #90 tab 05/08/19 05/29/19 Rx plecanatide [Trulance] 3 mg PO DAILY 05/29/19 05/29/19 History promethazine 12.5 mg PO TID PRN 05/29/19 05/29/19 History Past Med/Surg History Medical History Asthma (Chronic) Common variable immunodeficiency GERD (gastroesophageal reflux disease) HTN (hypertension) Hx of deep venous thrombosis (Resolved) Hx pulmonary embolism (Resolved) Hypothyroidism (Chronic) IBS (irritable bowel syndrome) Surgical History H/O shoulder surgery H/O vaginal surgery Correction History of total knee arthroplasty S/P vaginal hysterectomy Family History Grandmother Leukemia Stroke Mother Stroke Other Family history non-contributory Hypertension Tuberculosis Social History Preferred Language: Paraguayan Communication Ability: Effective Alterations Tailor Required: No Beliefs That Will Affect Care: None marital status: Current Living Situation: Spouse Other Information That Helps Us Care for You: No Feels Safe at Home: Yes Safety Concerns: Feels Safe At This Time Smoking Status: Former smoker Tobacco Type: cigarettes ; Do You Dip or Chew Tobacco: No ; Second Hand Exposure: Yes (Childhood) ; Tobacco Cessation Education Requested by Patient: No Hx Alcohol Use: Yes Alcohol type: wine Hx Substance Use: No Review of Systems Constitutional: + fatigue and + anorexia; no fever and no chills Respiratory: no cough, no dyspnea and no wheezing Cardiovascular: no chest pain, no palpitations, no syncope, no edema and no calf pain Gastrointestinal: + abdominal pain, + nausea, + vomiting and + diarrhea/loose stools; no hematemesis and no blood in stools Genitourinary: no dysuria, no difficulty urinating and no urinary urgency Integumentary: no rash and no lesions Physical Exam Constitutional: WD/WN, vitals as above + obese; no acute distress Eyes: PERRL, conjunctivae normal, anicteric sclerae ENMT: external ear and nose normal, oropharynx normal Respiratory: normal respiratory effort, lungs clear to auscultation Cardiovascular: RRR, no murmur, no edema Vessels: posterior tibial pulses present and dorsalis pedis pulses present Extremities: no calf tenderness, no pedal edema and no edema Chest (Breasts): Additional Comments: Port in place over left side of chest. Dressing is clean, dry, and intact Gastrointestinal (Abdomen): Percussion/Palpation: + abdomen tender (in LLQ) and abdomen soft; no guarding and abdomen not rigid Musculoskeletal: no cyanosis or clubbing, extremities motor strength 5/5 Skin: no rashes, warm and dry Psychiatric: A+Ox3, euthymic affect Results & Data Vital Signs (Past 12 Hours) Vital Signs Temp Pulse Pulse Resp BP BP Pulse Ox 05/29/19 07:15 81 16 98 05/29/19 07:01 85 15 95 05/29/19 07:00 85 17 160/92 H 96 05/29/19 06:42 85 18 168/97 H 95 05/29/19 05:47 90 18 179/93 H 93 05/29/19 05:17 88 18 151/96 H 96 05/29/19 04:20 36.7 C 97 H 18 169/103 H 95 Code Status & VTE Plan VTE Prophylaxis Plan VTE Prophylaxis will be ordered: Yes Supervising Physician Co-Signing Physician Notes I personally examined the patient and verified all osman points of history and exam, discussed case, and agree with decision making with Dr Sanford. felt better for a little while finishing and shortly after abx - but then in a few days started to worsen again. called surgeon at [facility] to notify of worsening and to notify that she was coming to ER. LLQ pain again. was scheduled for surgery in july. vitals noted fatigued but nontoxic appearing. LLQ TTP voluntary guarding no rebound no rigidity. CT and labs noted recurrent/refractory diverticulitis - plan has been for elective surgery in about 6-8wks. her current track record of a nearly continuous bout of diverticulitis for the last 6wks relapsing within days of being off abx suggests that this may not be right for her. admit, zosyn, stabilize current situation. does not need emergency surgery but will d/w her surgeon at [facility] about possibly transferring after she's been on abx a few days to get ahead of current infection, but doing surgery under the umbrella of current course of treatment so as to try to get ahead of her cycle of only getting better while on broad spectrum abx, then quickly worsening again after otherwise as above Resident Activity Tracking Resident Involvement: Resident Care Provided Care Provided: Adult Hospital Medicine (1) Hypothyroidism Hypothyroidism type: unspecified Qualified Code(s): E03.9 - Hypothyroidism, unspecified (2) GERD (gastroesophageal reflux disease) Esophagitis presence: without esophagitis Qualified Code(s): K21.9 - Gastro- esophageal reflux disease without esophagitis (3) HTN (hypertension) Hypertension type: essential hypertension Qualified Code(s): I10 - Essential (primary) hypertension (4) Asthma Asthma complication type: unspecified Asthma persistence: unspecified Asthma severity: unspecified severity Qualified Code(s): J45.909 - Unspecified asthma, uncomplicated
[2019-05-29] MEDS ORDERED: ALBUTEROL HFA 8 GM INHALER INH PRN (09:39)
[2019-05-29] MEDS ORDERED: ALUMINUM/MAGNESIUM SUSP 30 ML UDC PO PRN (09:39)
[2019-05-29] MEDS ORDERED: PROMETHAZINE HCL 25 MG TAB PO PRN (09:39)
[2019-05-29] MEDS ORDERED: GINGER PO SCH (09:39)
[2019-05-29] MEDS ORDERED: ALBUTEROL 0.083% NEBU SOLN 3 ML VIAL INH PRN (09:39)
[2019-05-29] MEDS ORDERED: OXYCODONE/ACETAMINOPHEN 5mg/325mg TAB PO PRN (09:39)
[2019-05-29] MEDS ORDERED: MAGNESIUM HYDROXIDE SUSP 30 ML UDC PO PRN (09:39)
[2019-05-29] MEDS ORDERED: POTASSIUM CHLORIDE 20 MEQ TABCR PO STA (10:05)
[2019-05-29] MEDS ORDERED: LACTATED RINGER'S 1,000 ML IV SCH (10:30)
[2019-05-29] MEDS: ACETAMINOPHEN 325 MG TAB PO PRN ×3 (10:36→19:45)
[2019-05-29] MEDS: ENOXAPARIN INJ 40 MG/0.4 ML SYR SQ SCH (11:04)
[2019-05-29] MEDS: FAMOTIDINE 20 MG TAB PO SCH (11:05)
[2019-05-29] MEDS: TRIAMTERENE/HCTZ 37.5/25MG TAB PO SCH (11:05)
[2019-05-29] MEDS: FLUTICASONE/SALMETEROL (ADVAIR) 500/50 INH 14 PUFF INH SCH ×2 (11:07→21:12)
[2019-05-29] MEDS: FLUDROCORTISONE ACETATE 0.1 MG TAB PO SCH (11:10)
[2019-05-29] MEDS: POTASSIUM CHLORIDE 20 MEQ TABCR PO SCH ×2 (11:10→21:12)
[2019-05-29] MEDS: TRIAMCINOLONE ACET NASAL SPRAY 10.8ML BTL SCH (11:11)
[2019-05-29] MEDS: PANTOprazole 40 MG TAB PO SCH (11:11)
[2019-05-29] MEDS: LEVOTHYROXINE SODIUM 50 MCG TABLET PO SCH (11:12)
[2019-05-29] MEDS: CETIRIZINE HCL 10 MG TABLET PO SCH (11:12)
[2019-05-29] MEDS: METOCLOPRAMIDE HCL 5 MG TABLET PO SCH (11:12)
[2019-05-29] MEDS: LACTOBACILLUS ACIDOPHILUS (FLORANEX) TAB PO SCH ×2 (11:12→15:48)
[2019-05-29] MEDS: SODIUM CHLORIDE 0.9% 1000ML 1,000 ML IV SCH ×2 (11:51→19:34)
[2019-05-29] MEDS: PIPERACILLIN/TAZOBACTAM 4.5 GM in DEXTROSE 5% 100 ML IV SCH ×2 (11:53→19:34)
--- NOTE | 2019-05-29 12:59 | Billing Data ---
Coding Level of Care Code 76187 Initial Inpt Care Lvl 3
[2019-05-29] MEDS: SIMVASTATIN 20 MG TAB PO SCH (21:12)
[2019-05-30] MEDS: PIPERACILLIN/TAZOBACTAM 4.5 GM in DEXTROSE 5% 100 ML IV SCH ×3 (03:20→20:23)
[2019-05-30] MEDS: LEVOTHYROXINE SODIUM 50 MCG TABLET PO SCH (06:01)
[2019-05-30] MEDS: ONDANSETRON INJ 2 MG/ML 2 ML VIAL IV PRN (07:18)
[2019-05-30 07:48] LABS: BUN Creatinine Ratio 11.3 (10-20); Calcium 10.2 mg/dl (8.5-10.1); Creatinine Clr Calc Pharmacy 66.8 ml/min; Est GFR (Non-African American) 72.5; Potassium 3.7 mmol/L (3.5-5.1)
--- NOTE | 2019-05-30 09:28 | Hospitalist Progress Note ---
Date of Service May 30, 2019 Assessment & Plan (1) Diverticulitis: Ms. Cruz is a 68 year old pleasant female with a past medical history of recurrent diverticulitis with multiple admissions, CVID, asthma, autonomic dysfunction, hypothyroidism, GERD, and history of PE who presented to [facility] for diverticulitis. Recurrent Sigmoid Diverticulitis - patient w/a history of numerous admissions for the same, most recently from 10/29 - 11/01, 04/18 - 04/23, 05/05 - 05/13. - She previously failed a course of IV ertapenem, and most recently completed her outpatient regimen of IV Zosyn on 05/19/2019. - CT abdomen and pelvis shows evidence of sigmoid diverticulitis. - No signs of sepsis, pt has been afebrile and without leukocytosis. - BCx x2 pending. - Advanced today to clear liquid diet due to control of nausea and abdominal pain. Pt has had some jello and broth and with advance diet further as tolerated. - Will continue IV Zosyn and probiotics. - Tylenol and Percocet PRN pain. - Zofran and Phenergan PRN nausea. - Patient has already met with a colorectal surgeon from [place] (Dr. Ken), and has her surgery scheduled for July 15. Will not be able to push pt's surgery further forward. Ultimately will continue to be on Zosyn in the outpatient setting through her port until day of surgery. Wishes to have "port changes" which occur weekly at the [facility]. CVID - Diagnosed with common variable immunodeficiency and receives IVIG through her left sided chest port once monthly with next dose June 04. - follows w/Dr. Harrington. Hypothyroidism - Continue home levothyroxine. Hypertension/Autonomic dysfunction - Reportedly not on anti-hypertensive medications because of her hx of autonomic dysfunction for which she has had episodes of syncope and falls in the past. - SBP ~150 this admission. - Follows with Dr. Carbajal. - continue home fludrocortisone. Asthma - Pt without symptoms of SOB or wheezing at this time and is satting well on room air. - Chest x-ray negative for acute pathology. - Will continue home Ventolin and Advair. - Last admission for asthma exacerbation was in 2017, has never required intubation/ICU stay. Hypokalemia - Potassium 3.7 today - Continue home Potassium chloride 20meq PO BID GERD - Pt without symptoms of reflux at this time. - Continue home pantoprazole 40mg qAM. - Continue Pepcid in leiu of Zantac. Hyperlipidemia - Continue home simvastatin 20mg daily. Cyst-like renal masses - Patient has multiple, bilateral hypodense renal masses, consistent with cysts, with the largest one on the lower pole of the right kidney measuring 3.7 cm. These were incidentally found on imaging, and pt does not have any urinary complaints. - Creatinine 0.82. - Recommend outpatient follow-up. CODE STATUS: Full Code FEN/GI: Clear liquid at this time, will advance diet as tolerated DVT prophylaxis: Lovenox 40 mg subcutaneous daily Disposition: Admit to med/surg. Possible transfer to [place] (2) Diverticulosis: (3) Hyperlipidemia: (4) Autonomic dysfunction: (5) Chronic sinusitis: (6) Hypothyroidism: (7) GERD (gastroesophageal reflux disease): (8) HTN (hypertension): (9) Asthma: (10) Common variable immunodeficiency: Supervising Physician Co-Signing Physician Notes I personally examined the patient and verified all osman points of history and exam, discussed case, and agree with decision making with Dr Sanford. feeling about the same maybe a little better. just trying jello. updated on plan. she just notes she wants port access changed at [facility] not via home nursing this time. vitals noted fatigued but nontoxic appearing. heent nc at mmm breathing unlabored no pallor or icterus recurrent/refractory diverticulitis - plan has been for elective surgery in about 6-8wks. will have open-ended course of treatment with zosyn with hopes of being able to move up surgery but beholden to when availability comes up. work towards home again on zosyn once pain reasonable and eating regular diet. take day-to-day. otherwise as above Subjective Pt without acute events overnight. Minimal nausea, no vomiting. Feels like her stomach is empty and is contributing to her minimal nausea. Tenderness of abdomen a bit better this AM. No fevers or chills, no constipation or diarrhea, no SOB CP. Review of Systems Constitutional: no fever, no chills and no malaise Respiratory: no cough and no dyspnea Cardiovascular: no chest pain, no palpitations and no edema Gastrointestinal: + abdominal pain and + nausea; no vomiting, no constipation and no diarrhea/loose stools Genitourinary: no dysuria and no hematuria Physical Exam Constitutional: WD/WN, vitals as above Respiratory: normal respiratory effort, lungs clear to auscultation Cardiovascular: RRR, no murmur, no edema Gastrointestinal (Abdomen): Inspection/Auscultation: normal bowel sounds; abdomen not distended Percussion/Palpation: abdomen soft TTP LLQ, no rebound or guarding Skin: no rashes, warm and dry Psychiatric: A+Ox3, euthymic affect Results & Data Vital Signs (Past 12 Hours) Vital Signs Temp Pulse Resp BP Pulse Ox 05/30/19 07:05 36.9 C 76 16 166/91 H 93 05/30/19 04:26 96 H 153/92 H 05/29/19 23:00 36.8 C 86 16 175/99 H 96 Laboratory Results Laboratory Results - last 24 hr 05/30/19 06:51 Sodium 145 Potassium 3.7 Chloride 115 H Carbon Dioxide 23 Anion Gap 7.0 BUN 9 D Creatinine 0.82 Est Cr Clr Drug Dosing 66.8 Est GFR ( Amer) 84.0 Est GFR (Non-Af Amer) 72.5 BUN/Creatinine Ratio 11.3 Glucose 110 H Calcium 10.2 H Medications Administered Current Medications Acetaminophen (Tylenol) 650 mg PO Q4H PRN PRN Reason: pain/fever Stop: 06/28/19 09:38 Last Admin: 05/29/19 19:45 Dose: 650 mg Documented by: Al Hydrox/Mg Hydrox/Simethicone (Maalox) 30 ml PO Q6H PRN PRN Reason: Dyspepsia Stop: 06/28/19 09:38 Albuterol (Ventolin 0.083% 2.5mg/3ml) 2.5 mg INH Q6H PRN PRN Reason: Shortness Of Breath Stop: 06/28/19 09:38 Albuterol (Ventolin Hfa) 2 puffs INH Q4H PRN PRN Reason: Shortness Of Breath Stop: 06/28/19 09:38 Cetirizine HCl (Zyrtec) 10 mg PO QAM KAREN Stop: 06/28/19 10:29 Last Admin: 05/30/19 09:56 Dose: 10 mg Documented by: Enoxaparin Sodium (Lovenox) 40 mg SQ QAM [facility] Stop: 06/28/19 10:29 Last Admin: 05/30/19 09:57 Dose: 40 mg Documented by: Famotidine (Pepcid) 20 mg PO QAM [facility] Stop: 06/28/19 10:29 Last Admin: 05/30/19 09:56 Dose: 20 mg Documented by: Fludrocortisone Acetate (Florinef) 0.1 mg PO QAM [facility] Stop: 06/28/19 10:29 Last Admin: 05/30/19 09:56 Dose: 0.1 mg Documented by: Heparin Sodium (Porcine) (Heparin Sod 100 Unit/Ml Flush) 5 ml FLUSH PRN PRN PRN Reason: Flush Stop: 06/28/19 23:14 Piperacillin Sod/Tazobactam (Sod 4.5 gm/ Dextrose) 120 mls @ 30 mls/hr IV Q8H [facility]; Protocol Stop: 06/08/19 11:59 Last Infusion: 05/30/19 08:10 Dose: Infused Documented by: Ioversol (Optiray 320 100ml) 100 ml IV ONCE PRN PRN Reason: Interaction Checking Stop: 06/02/19 05:43 Last Admin: 05/29/19 05:45 Dose: 93 ml Documented by: Lactobacillus Acidophilus (Floranex) 4 tab PO TIDM [facility] Stop: 06/28/19 11:59 Last Admin: 05/30/19 09:56 Dose: 4 tab Documented by: Levothyroxine Sodium (Synthroid) 50 mcg PO DAILYBB [facility] Stop: 06/28/19 10:29 Last Admin: 05/30/19 06:01 Dose: 50 mcg Documented by: Magnesium Hydroxide (Milk Of Magnesia) 30 ml PO Q6H PRN PRN Reason: Constipation Stop: 06/28/19 09:38 Metoclopramide HCl (Reglan) 5 mg PO DAILY [facility] Stop: 06/28/19 10:29 Last Admin: 05/30/19 09:57 Dose: 5 mg Documented by: Miscellaneous Information (Consult) 1 ea N/A UD PRN PRN Reason: Consult Stop: 06/28/19 07:01 Ondansetron HCl (Zofran) 4 mg IV Q6H PRN PRN Reason: Nausea Stop: 06/28/19 09:38 Last Admin: 05/30/19 07:18 Dose: 4 mg Documented by: Oxycodone/Acetaminophen (Percocet 5mg/325mg) 1 tab PO Q8H PRN PRN Reason: pain Stop: 06/12/19 09:38 Pantoprazole Sodium (Protonix) 40 mg PO QAM [facility] Stop: 06/28/19 10:29 Last Admin: 05/30/19 09:56 Dose: 40 mg Documented by: Potassium Chloride (Klor-Con M20) 20 meq PO BID KAREN Stop: 06/28/19 10:29 Last Admin: 05/30/19 09:56 Dose: 20 meq Documented by: Promethazine HCl (Phenergan) 12.5 mg PO TID PRN PRN Reason: Nausea Stop: 06/28/19 09:38 Fluticasone/Salmeterol (Advair Diskus 500/50) 1 puffs INH BID [facility] Stop: 06/28/19 10:29 Last Admin: 05/30/19 09:57 Dose: 1 puffs Documented by: Simvastatin (Zocor) 20 mg PO HS [facility] Stop: 06/28/19 20:59 Last Admin: 05/29/19 21:12 Dose: 20 mg Documented by: Triamcinolone Acetonide (Nasacort) 2 sprays NA QAM [facility] Stop: 06/28/19 10:29 Last Admin: 05/30/19 09:58 Dose: 2 sprays Documented by: Triamterene/HCTZ (Maxzide 37.5/25mg) 1 tab PO DAILY [facility] Stop: 06/28/19 10:29 Last Admin: 05/30/19 10:00 Dose: Not Given Documented by: Resident Activity Tracking Resident Involvement: Resident Care Provided Care Provided: Adult Hospital Medicine (1) Hypothyroidism Hypothyroidism type: unspecified Qualified Code(s): E03.9 - Hypothyroidism, unspecified (2) GERD (gastroesophageal reflux disease) Esophagitis presence: without esophagitis Qualified Code(s): K21.9 - Gastro- esophageal reflux disease without esophagitis (3) HTN (hypertension) Hypertension type: essential hypertension Qualified Code(s): I10 - Essential (primary) hypertension (4) Asthma Asthma complication type: unspecified Asthma persistence: unspecified Asthma severity: unspecified severity Qualified Code(s): J45.909 - Unspecified asthma, uncomplicated
[2019-05-30] MEDS: FAMOTIDINE 20 MG TAB PO SCH (09:56)
[2019-05-30] MEDS: CETIRIZINE HCL 10 MG TABLET PO SCH (09:56)
[2019-05-30] MEDS: LACTOBACILLUS ACIDOPHILUS (FLORANEX) TAB PO SCH ×3 (09:56→17:45)
[2019-05-30] MEDS: PANTOprazole 40 MG TAB PO SCH (09:56)
[2019-05-30] MEDS: POTASSIUM CHLORIDE 20 MEQ TABCR PO SCH ×2 (09:56→20:23)
[2019-05-30] MEDS: FLUDROCORTISONE ACETATE 0.1 MG TAB PO SCH (09:56)
[2019-05-30] MEDS: FLUTICASONE/SALMETEROL (ADVAIR) 500/50 INH 14 PUFF INH SCH ×2 (09:57→20:22)
[2019-05-30] MEDS: ENOXAPARIN INJ 40 MG/0.4 ML SYR SQ SCH (09:57)
[2019-05-30] MEDS: METOCLOPRAMIDE HCL 5 MG TABLET PO SCH (09:57)
[2019-05-30] MEDS: TRIAMCINOLONE ACET NASAL SPRAY 10.8ML BTL SCH (09:58)
[2019-05-30] MEDS: TRIAMTERENE/HCTZ 37.5/25MG TAB PO SCH (10:00)
[2019-05-30 11:55] LABS: Hematocrit (blood only) 38.3 % (37-47); Hemoglobin 11.9 g/dL (12.0-16.0); Mean Corpuscular Hemoglobin 26.6 pg (25-34); Mean Corpuscular Hgb Conc 31.1 g/dL (32-36); Mean Corpuscular Volume 85.5 fL (80-100); Platelet Count 209 K/uL (130-400); RDW Coefficient of Variation 19.1 % (11.5-14.5); RDW Standard Deviation 60.7 fL (36.4-46.3); Red Blood Count 4.48 M/uL (4.2-5.4); White Blood Count 6.55 K/uL (4.8-10.8)
[2019-05-30] MEDS: HEPARIN 100 UNIT/ML 5ML FLUSH FLUSH PRN ×3 (16:05→23:51)
--- NOTE | 2019-05-30 17:01 | Billing Data ---
Coding Level of Care Code 86327 Subseq Hosp Care Lvl 3
[2019-05-30] MEDS: SIMVASTATIN 20 MG TAB PO SCH (20:23)
[2019-05-31] MEDS: PIPERACILLIN/TAZOBACTAM 4.5 GM in DEXTROSE 5% 100 ML IV SCH ×2 (04:08→12:47)
[2019-05-31] MEDS: ONDANSETRON INJ 2 MG/ML 2 ML VIAL IV PRN (04:10)
[2019-05-31] MEDS: LEVOTHYROXINE SODIUM 50 MCG TABLET PO SCH (06:07)
[2019-05-31 06:23] LABS: Hematocrit (blood only) 35.5 % (37-47); Mean Corpuscular Hemoglobin 26.3 pg (25-34); Mean Corpuscular Volume 84.7 fL (80-100); Platelet Count 197 K/uL (130-400); RDW Coefficient of Variation 18.9 % (11.5-14.5); RDW Standard Deviation 59.5 fL (36.4-46.3); Red Blood Count 4.19 M/uL (4.2-5.4); White Blood Count 5.22 K/uL (4.8-10.8)
[2019-05-31 06:51] LABS: Calcium 10.6 mg/dl (8.5-10.1); Est GFR (African American) 78.2; Est GFR (Non-African American) 67.5; Potassium 3.4 mmol/L (3.5-5.1)
[2019-05-31 07:41] VITALS: O2SAT 95
[2019-05-31] MEDS: HEPARIN 100 UNIT/ML 5ML FLUSH FLUSH PRN ×2 (07:41→16:39)
[2019-05-31] MEDS: LACTOBACILLUS ACIDOPHILUS (FLORANEX) TAB PO SCH ×2 (09:07→12:47)
[2019-05-31] MEDS: TRIAMCINOLONE ACET NASAL SPRAY 10.8ML BTL SCH (09:07)
[2019-05-31] MEDS: FLUTICASONE/SALMETEROL (ADVAIR) 500/50 INH 14 PUFF INH SCH (09:07)
[2019-05-31] MEDS: TRIAMTERENE/HCTZ 37.5/25MG TAB PO SCH (09:08)
[2019-05-31] MEDS: CETIRIZINE HCL 10 MG TABLET PO SCH (09:08)
[2019-05-31] MEDS: FLUDROCORTISONE ACETATE 0.1 MG TAB PO SCH (09:08)
[2019-05-31] MEDS: FAMOTIDINE 20 MG TAB PO SCH (09:08)
[2019-05-31] MEDS: POTASSIUM CHLORIDE 20 MEQ TABCR PO SCH (09:08)
[2019-05-31] MEDS: ENOXAPARIN INJ 40 MG/0.4 ML SYR SQ SCH (09:08)
[2019-05-31] MEDS: PANTOprazole 40 MG TAB PO SCH (09:09)
[2019-05-31] MEDS: METOCLOPRAMIDE HCL 5 MG TABLET PO SCH (09:09)
--- NOTE | 2019-05-31 14:51 | Discharge Summary ---
Date of Service May 31, 2019 Admission HPI Per Admitting Provider Ms. Cruz is a 68 year old pleasant female with a past medical history of recurrent diverticulitis with multiple admissions, CVID, asthma, autonomic dysfunction, hypothyroidism, GERD, and history of PE who presented to [facility] for diverticulitis. She reports that she has had 6 episodes of diverticulitis in the last year, with her most recent admissions being in October, April, and May 2019. She recently finished a course of IV Zosyn on 05/19/2019 for diverticulitis. She was followed by both Dr. Gross from GI, and Dr. Jacobs from infectious diseases. She has seen a colorectal surgeon at [place], and has a colon resection scheduled on July 15, 2019. After finishing her antibiotic course on 05/19, she reports 2-3 days where she felt good. She stated afterwards, the abdominal pain worsened, and was intermittent over several days. She reports the pain became more constant over the last 3 days, localized to her left lower quadrant, consistent with her previous episodes of diverticulitis. She also endorses vomiting, without the presence of blood, as well as diarrhea. She denies any fever or chills. Of note, she is a non-smoker. She drinks 2 to 3 glasses of wine over a year. She does not use any recreational drugs. Admission Exam Per Admitting Provider Constitutional: WD/WN, vitals as above + obese; no acute distress Eyes: PERRL, conjunctivae normal, anicteric sclerae ENMT: external ear and nose normal, oropharynx normal Respiratory: normal respiratory effort, lungs clear to auscultation Cardiovascular: RRR, no murmur, no edema Vessels: posterior tibial pulses present and dorsalis pedis pulses present Extremities: no calf tenderness, no pedal edema and no edema Chest: Port in place over left side of chest. Dressing is clean, dry, and intact Gastrointestinal: Percussion/Palpation: + abdomen tender (in LLQ) and abdomen soft; no guarding and abdomen not rigid Musculoskeletal: no cyanosis or clubbing, extremities motor strength 5/5 Skin: no rashes, warm and dry Psychiatric: AAOx3, euthymic affect Principal Diagnosis Diverticulitis Discharge Exam Constitutional WD/WN, vitals as above Respiratory normal respiratory effort, lungs clear to auscultation Cardiovascular RRR, no murmur, no edema Gastrointestinal (Abdomen) normal bowel sounds, soft, nontender, no hepatosplenomegaly Skin no rashes, warm and dry port in place over left chest, dressing is clean dry and intact. Psychiatric A+Ox3, euthymic affect Discharge Data Allergies Allergy/AdvReac Type Severity Reaction Status Date / Time levofloxacin Allergy Severe Anaphylaxis Verified 05/29/19 06:46 aspirin Allergy Intermediate HIVES Verified 05/29/19 06:46 house dust Allergy Intermediate ASTHMA Verified 05/29/19 06:46 TRIGGER pollen extracts Allergy Intermediate SHORTNESS Verified 05/29/19 06:46 OF BREATH montelukast [From Singulair] Allergy Unknown Unknown Verified 05/29/19 06:46 erythromycin base AdvReac Intermediate NAUSEA, Verified 05/29/19 06:46 DRY HEAVES fluticasone AdvReac Mild DIZZINESS Verified 05/29/19 06:46 Consultations 05/29/19 07:01 ED Decision to Admit Stat Ordered Studies 05/29/19 04:29 CT abd pelvis IV con only Urgent IMPRESSION: 1. No evidence of bowel obstruction. No evidence of free air 2. Normal appendix 3. Continued evidence of sigmoid diverticulitis. Hospital Course (1) Diverticulitis: Ms. Cruz is a 68 year old pleasant female with a past medical history of recurrent diverticulitis with multiple admissions, CVID, asthma, autonomic dysfunction, hypothyroidism, GERD, and history of PE who presented to [facility] for recurrent diverticulitis. Recurrent Sigmoid Diverticulitis - patient w/a history of numerous admissions for the same, most recently from 10/29 - 11/01, 04/18 - 04/23, 05/05 - 05/13. - She previously failed a course of IV ertapenem, and most recently completed her outpatient regimen of IV Zosyn on 05/19/2019. - CT abdomen and pelvis shows evidence of sigmoid diverticulitis. - No signs of sepsis, pt has been afebrile and without leukocytosis. - BCx x2 negative. - Advanced to full diet today due to lack of nausea and abdominal pain. Pt feels well enough to go home. - Will continue IV Zosyn and probiotics at home with home infusions through patient's left chest port. Home health will visit frequently to assist with dressing changes and other care needs. - Patient has already met with a colorectal surgeon from [place] (Dr. Ken), and has her surgery scheduled for July 15. Will not be able to push pt's surgery further forward however pt is on cancellation list in case an opening arises. - Continue low fiber diet. CVID - Diagnosed with common variable immunodeficiency and receives IVIG through her left sided chest port once monthly with next dose June 04. - Follows w/Dr. Harringtno. Hypothyroidism - Continue home levothyroxine. Hypertension/Autonomic dysfunction - Reportedly not on anti-hypertensive medications because of her hx of autonomic dysfunction for which she has had episodes of syncope and falls in the past. - SBP ~150 this admission. - Follows with Dr. Carbajal with Cardiology. - Continue home fludrocortisone. Asthma - Pt without symptoms of SOB or wheezing at this time and is saturating well on room air. - Chest x-ray negative for acute pathology. - Will continue home Ventolin and Advair. Hypokalemia - Pt with poor intake causing minor hypokalemia; repleted here and will continue to encourage potassium-rich foods in her diet. GERD - Pt without symptoms of reflux at this time. - Continue home pantoprazole 40mg qAM. - Continue Pepcid in leiu of Zantac. Hyperlipidemia - Continue home simvastatin 20mg daily. Cyst-like renal masses - Patient has multiple, bilateral hypodense renal masses, consistent with cysts, with the largest one on the lower pole of the right kidney measuring 3.7 cm. These were incidentally found on imaging, and pt does not have any urinary complaints. - Creatinine 0.87. - Recommend outpatient follow-up. Disposition: home with home health services (2) Diverticulosis: (3) Hyperlipidemia: (4) Autonomic dysfunction: (5) Chronic sinusitis: (6) Hypothyroidism: (7) GERD (gastroesophageal reflux disease): (8) HTN (hypertension): (9) Asthma: (10) Common variable immunodeficiency: Total Time Total Time Spent Total Time Spent (In Minutes): <30 Discharge Plan Discharge Items Patient Disposition: Home - Home Health Services Reason For Visit: RECURRENT DIVERTICULITIS Discharge Diagnosis: Diverticulitis Condition on Discharge: Good Activity: Resume your previous activity Non-emergency contact: Primary Care Provider and Hospitalist Call non-emergency contact if: you have any medication questions, your symptoms worsen and your temperature is above 101 Follow-up/Referrals: Joselito Harrington MD [Primary Care Provider] - Diet: Low Fiber Addtl Attending Provider Instructions: You were admitted to the hospital for concern for diverticulitis, and you were found to have findings consistent with diverticulitis on imaging. We limited your food intake, gave you medicine for pain and nausea, and gave you an tibiotics called Zosyn every 8 hours for the infection. We talked with your surgeon Dr. Ken who unfortunately could not move your surgery up further, so we treated you with antibiotics for your flare and will have you continue your antibiotics at home. The dosing you will be sent is a once daily 24 hour dose of Zosyn like you have done in the past. You will continue these antibiotics through until your surgery in July. Home health services will visit you on Monday to help with dressing changes. It is important that you follow up with your primary care doctor regarding being in the hospital. If you develop fevers, chills, or similar symptoms to those you experienced that brought you into the hospital, please call your primary care doctor and go to the ER. I have sent a prescription for Pepcid (famotidine) to the [facility] in [place]. This medication will replace your Zantac (ranitidine) for reflux. You will take it once daily. Pending Studies at Discharge: No Stand-Alone Forms: My [facility], Smoking Cessation Medications and DC Order Prescriptions: New famotidine 20 mg Tablet 20 mg PO QAM Qty: 30 RF: 1 Continued triamcinolone acetonide [Nasacort] 55 mcg aerosol,spray 2 spray Intranasal QAM Qty: 16.9 RF: 3 simvastatin 20 mg tablet 20 mg PO HS Qty: 90 RF: 3 albuterol sulfate [Ventolin HFA] 90 mcg/actuation HFA aerosol inhaler 2 puff INHALATION Q4H PRN (Reason: Shortness Of Breath) Qty: 1 RF: 11 triamterene-hydrochlorothiazid 37.5-25 mg tablet 1 tab PO DAILY Qty: 30 RF: 0 lansoprazole 30 mg capsule,delayed release(DR/EC) 30 mg PO DAILY Qty: 90 RF: 0 albuterol sulfate 2.5 mg /3 mL (0.083 %) Solution For Nebulization 2.5 mg inhalation Q6H PRN (Reason: Shortness Of Breath) RF: 0 cetirizine [Zyrtec] 10 mg Tablet 10 mg PO QAM RF: 0 fludrocortisone 0.1 mg Tablet 0.1 mg PO QAM RF: 0 fluticasone propion-salmeterol [Advair Diskus] 500-50 mcg/dose Blister With Device 1 inh INHALATION BID RF: 0 levothyroxine 50 mcg Tablet 50 mcg PO QAM RF: 0 immune globulin,gamma(IgG)ifas 10 % Solution 1 dose IV MONTHLY RF: 0 Ensure Liquid 1 - 2 can PO BID RF: 0 potassium chloride [Klor-Con M20] 20 mEq tablet,ER particles/crystals 20 meq PO BID RF: 0 monster (Zingiber officinalis) 250 mg Capsule 250 mg PO DAILY RF: 0 ondansetron 4 mg tablet,disintegrating 4 mg PO Q6H PRN (Reason: nausea and vomiting) Qty: 12 RF: 0 Probiotic 5 billion cell Capsule, Sprinkle 1 cap PO DAILY RF: 0 pantoprazole 40 mg Tablet,Delayed Release (Dr/Ec) 40 mg PO QAM Qty: 30 RF: 0 oxycodone-acetaminophen 5-325 mg tablet 1 tab PO Q8H PRN (Reason: pain) Qty: 14 RF: 0 metoclopramide HCl 5 mg tablet 5 mg PO DAILY Qty: 30 RF: 0 Trulance 3 mg tablet 3 mg PO DAILY RF: 0 promethazine 12.5 mg tablet 12.5 mg PO TID PRN (Reason: Nausea) RF: 0 Discontinued ranitidine HCl 300 mg tablet 300 mg PO HS Qty: 30 RF: 0 Discharge Orders: Discharge Order (Routine); Ordered 05/31/19 Ordered By: Cassie Oh Admission Data Admit Date/Time: 05/29/19 07:52 Attending Provider: Sg Roman Admit Provider: Evan Sanford Primary Care Provider: Joselito Harrington Other Providers: Kole Armstrong Other Interventions: Discharge Summary Assessment (RN) Last Done: 05/31/19 15:04 Supervising Physician Co-Signing Physician Notes I personally examined the patient and verified all osman points of history and exam, discussed case, and agree with decision making with Dr Boone. feeling better eating better. case management input appreciated. vitals noted fatigued but nontoxic appearing. heent nc at mmm breathing unlabored no pallor or icterus recurrent/refractory diverticulitis - plan has been for elective surgery in about 6-8wks. will have open-ended course of treatment with zosyn with hopes of being able to move up surgery but beholden to when availability comes up. stable for home once abx set up. otherwise as above Resident Activity Tracking Resident Involvement: Resident Care Provided Care Provided: Adult Hospital Medicine
[2019-05-31 15:07] VITALS: BP 177/83; PULSE 84; TEMP 98.2
--- NOTE | 2019-05-31 15:37 | Billing Data ---
Coding Level of Care Code D/C Day Management <30 mins
== END 2019-05-31 17:10 | disposition home health service (06) | DRG 392 ==
LOC: ED 04:11 → 3N 07:52

== ENCOUNTER 2019-06-19 09:44 | Inpatient (IN) ==
[2019-06-19] MEDS ORDERED: ONDANSETRON INJ 2 MG/ML 2 ML VIAL IV STA (10:13)
[2019-06-19] MEDS ORDERED: SODIUM CHLORIDE 0.9% 1000ML 1,000 ML IV SCH (10:15)
[2019-06-19 10:40] LABS: Basophils # (auto) 0.03 K/uL (0-0.2); Basophils % (auto) 0.5 %; Eosinophils # (auto) 0.19 K/uL (0-0.5); Eosinophils % (auto) 3.4 %; Hematocrit (blood only) 40.8 % (37-47); Immature Granulocytes # (auto) 0.01 K/uL (0.00-0.02); Immature Granulocytes % (auto) 0.2 %; Lymphocytes # (auto) 1.14 K/uL (1.2-3.4); Lymphocytes % (auto) 20.7 %; Mean Corpuscular Hemoglobin 27.3 pg (25-34); Mean Corpuscular Hgb Conc 31.9 g/dL (32-36); Mean Corpuscular Volume 85.7 fL (80-100); Monocytes # (auto) 0.64 K/uL (0.11-0.59); Monocytes % (auto) 11.6 %; Neutrophils % (auto) 63.6 %; Platelet Count 161 K/uL (130-400); RDW Coefficient of Variation 18.5 % (11.5-14.5); RDW Standard Deviation 58.7 fL (36.4-46.3); Red Blood Count 4.76 M/uL (4.2-5.4); White Blood Count 5.51 K/uL (4.8-10.8)
[2019-06-19 11:23] LABS: Alanine Aminotransferase 29 U/L (12-78); Albumin Globulin Ratio 0.7 (0.9-2); Albumin Level 2.8 gm/dl (3.4-5.0); Alkaline Phosphatase 148 U/L (45-117); Aspartate Aminotransferase 47 U/L (15-37); BUN Creatinine Ratio 7.6 (10-20); Bilirubin,Total 0.8 mg/dl (0.2-1); Blood Urea Nitrogen 6 mg/dl (7-18); Calcium 11.3 mg/dl (8.5-10.1); Carbon Dioxide 25 mmol/L (21-32); Chloride 104 mmol/L (98-107); Est GFR (African American) 89.3; Globulin 4.3 gm/dl (2.5-4.0); Glucose 95 mg/dl (70-99); Lipase 53 U/L (73-393); Magnesium 1.5 mg/dl (1.8-2.4); Potassium 2.7 mmol/L (3.5-5.1); Sodium 141 mmol/L (136-145); Total Protein 7.1 gm/dl (6.4-8.2); Troponin I 0.073 ng/ml (0-0.045)
[2019-06-19] MEDS ORDERED: IOVERSOL 100ml IV PRN (11:49)
--- NOTE | 2019-06-19 12:10 | CT Scan Report ---
CT abd pelvis IV con only CLINICAL HISTORY: 68 years-old Female presenting with llq pain, divertic, now RLQ pain. TECHNIQUE: Multidetector CT of the abdomen and pelvis was performed after the administration of intra venous contrast. IV contrast: 94 mL of Optiray 320. One or more dose lowering techniques were used co nsistent with the principles of ALARA (as low as reasonably achievable), including automatic exposure control, mA or kV adjustment to individual patient size, and/or use of iterative reconstruction. COMPARISON: 05/29/2019. CT DOSE (mGy.cm): The estimated cumulative dose is 953.00 mGy.cm. FINDINGS: Application Development Project Manager topogram: Unremarkable. Lung bases: Normal heart size. No pericardial or pleural effusion. Minimal dependent changes likely a telectasis. Liver: Normal morphology. Density suggestive of hepatic steatosis. Focal hypoattenuation along the fi ssure for the ligament teres likely perfusional variation or focal fat. Patent hepatic vasculature. Biliary: No intrahepatic or extrahepatic biliary ductal dilatation. The gallbladder is likely physiol ogically distended. Pancreas: Moderate parenchymal atrophy. Spleen: Normal. Adrenal glands: Normal. Kidneys and ureters: Multiple cysts bilaterally. No nephrolithiasis or hydronephrosis. Ureters nondis tended. Bladder: Normal. Pelvic organs: Uterus surgically absent. No adnexal masses. Bowel: Diverticulosis of the proximal to mid sigmoid colon with focal wall thickening. No pericolonic inflammatory change. Less extensive diverticulosis of the descending colon and right colon. The appe ndix is normal. No bowel obstruction. Peritoneal cavity: No free fluid or intraperitoneal gas. Lymph nodes: No enlarged lymph nodes in the abdomen or pelvis. Vasculature: Atherosclerosis of the normal caliber abdominal aorta. IVC patent. Abdominal wall: Normal. Musculoskeletal: Degenerative changes of the spine. IMPRESSION: 1. 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 No convincing evidence of acute diverticulitis. Less severe diverticulosis elsewhere. 2. No appendicitis. 3. No acute intra-abdominal pathology. 4. Distention of the gallbladder is likely on a physiologic basis. If the patient has right upper qu adrant symptomatology, right upper quadrant ultrasound could be considered. ACT 112: Negative or not required by law. Electronically signed by: Walker Walter M.D. 06/19/2019 12:08 PM
[2019-06-19 12:41] LABS: Appearance Urine Clear (Clear); Bacteria Urine Automated Negative (Negative); Bilirubin Urine Negative (Negative); Blood Urine Trace (Negative); Color Urine Yellow; Epithelial Cell Urine Auto >30 /lpf (0-5); Glucose Urine UA Negative (Negative); Ketones Urine 2+ (Negative); Leukocyte Esterase Urine 1+ (Negative); Nitrite Urine Negative (Negative); Protein Urine 1+ (Negative); RBC Urine Automated 0-4 /hpf (0-4); Specific Gravity Urine 1.023 (1.000-1.030); Urobilinogen Urine Negative (Negative)
[2019-06-19] MEDS ORDERED: MAGNESIUM SULFATE / D5W 1 GM/100 ML BAG IV ONE ×2 (12:49→14:44)
[2019-06-19] MEDS ORDERED: POTASSIUM CHLORIDE 20 MEQ TABCR PO STA (12:49)
[2019-06-19] MEDS ORDERED: POTASSIUM CHLORIDE / WTR 10 MEQ/100 ML PLCT IV ONE (13:13)
--- NOTE | 2019-06-19 14:57 | Emergency Department Note ---
Entered by Trinity Akers acting as a scribe for Corey Reyna M.D. History of Present Illness General Chief complaint: GI Assessment Stated complaint: DIVERTICULITIS FLARE UP Time Seen by Provider: 06/19/19 09:58 Source: patient History of Present Illness Onset (ago): month(s) 1 Location: abdomen Pain Consistency: + other (worsening) Maximum Pain Intensity: 3 Quality: + other (abdominal pain) Associated symptoms: + fever/chills (low grade), + nausea/vomiting, + weakness and + other (+diarrhea; -blood in bowel movements; -urinary symptoms ); no cough The patient is a 68 year old female, with past medical history of diverticulitis and RIA, who presents to the Emergency Room with complaints of worsening abdominal pain over the last month. The patient reports she had been dealing with bowel issues for the last 3 years. She states she has dealt with chronic, constant lower left abdominal pain, but the patient today reports of a new intermittent, sharp right lower abdominal pain that the patient states began yesterday. The patient also reports of worsening weakness and nausea over the last month, ever since being discharged from her last hospital visit which was around . The patient notes she is scheduled for a bowel resection on July 15. She states her PCP- Dr. Go and -[facility] have been helping her plan this upcoming surgery. The patient states she has a 10 inch area in her bowel that is flaky and black. The patient states her nausea is so bad that her recent diet only consists of 34 saltine crackers a day, as she states she cant keep anything down. She also states she only drinks about 8-16 ounces a day recently. The patient states she has been experiencing diarrhea, but she denies blood in her bowel movements. The patient reports of a low-grade fever. She denies recent fall, urinary symptoms, or a cough. The patient states that the Zofran tablets she has been taking at home has not helped her nausea lately. She also notes she gets an infusion through her port every 28 days for her RIA. Home Medications Home Medications Medication Instructions Recorded Confirmed Type albuterol sulfate 2.5 mg INHALATION Q6H PRN 06/09/18 06/19/19 History cetirizine [Zyrtec] 10 mg PO QAM 06/09/18 06/19/19 History fludrocortisone 0.1 mg PO QAM 06/09/18 06/19/19 History fluticasone propion-salmeterol 1 inh INHALATION BID 06/09/18 06/19/19 History [Advair Diskus] levothyroxine 50 mcg PO QAM 06/09/18 06/19/19 History immune globulin,gamma(IgG)ifas 1 dose IV MONTHLY 09/08/18 06/19/19 History Ensure 1 - 2 can PO BID 10/28/18 06/19/19 History triamcinolone acetonide 55 mcg 2 spray INTRANASAL QAM #16.9 ml 01/22/19 06/19/19 Rx nasal spray aerosol albuterol sulfate 90 mcg/actuation 2 puff INHALATION Q4H PRN #1 02/22/19 06/19/19 Rx aerosol inhaler inhaler ondansetron 4 mg PO Q6H PRN #12 tab 04/02/19 06/19/19 Rx potassium chloride [Klor-Con M20] 20 meq PO BID 04/02/19 06/19/19 History metoclopramide HCl 5 mg PO DAILY #30 tab 04/23/19 06/19/19 Rx pantoprazole 40 mg PO QAM #30 tab 04/23/19 06/19/19 Rx lansoprazole 30 mg capsule,delayed 30 mg PO QAM #90 cap 05/07/19 06/19/19 His tory release triamterene 37.5 1 tab PO QAM #30 tab 05/07/19 06/19/19 History mg-hydrochlorothiazide 25 mg tablet simvastatin 20 mg tablet 20 mg PO HS #90 tab 05/08/19 06/19/19 Rx tramadol 37.5 mg-acetaminophen 325 1 tab PO Q6H PRN #90 tab 06/07/19 06/19/19 Rx mg tablet acetaminophen 325 mg PO Q6H PRN 06/19/19 06/19/19 History piperacillin-tazobactam [Zosyn] 0 g IV CONT 06/19/19 06/19/19 History Allergies Allergy/AdvReac Type Severity Reaction Status Date / Time levofloxacin Allergy Severe Anaphylaxis Verified 06/19/19 11:40 aspirin Allergy Intermediate HIVES Verified 06/19/19 11:40 house dust Allergy Intermediate ASTHMA Verified 06/19/19 11:40 TRIGGER pollen extracts Allergy Intermediate SHORTNESS Verified 06/19/19 11:40 OF BREATH montelukast [From Singulair] Allergy Unknown Unknown Verified 06/19/19 11:40 erythromycin base AdvReac Intermediate NAUSEA, Verified 06/19/19 11:40 DRY HEAVES fluticasone AdvReac Mild DIZZINESS Verified 06/19/19 11:40 Past Med/Surg History Medical History Asthma (Chronic) Common variable immunodeficiency GERD (gastroesophageal reflux disease) HTN (hypertension) Hx of deep venous thrombosis (Resolved) Hx pulmonary embolism (Resolved) Hypothyroidism (Chronic) IBS (irritable bowel syndrome) Surgical History H/O shoulder surgery H/O vaginal surgery Correction History of total knee arthroplasty S/P vaginal hysterectomy Family History Grandmother Leukemia Stroke Mother Stroke Other Family history non-contributory Hypertension Tuberculosis Social History Preferred Language: Nepalese Communication Ability: Effective Banquet Chef Required: No Beliefs That Will Affect Care: None marital status: Current Living Situation: Spouse Feels Safe at Home: Yes Smoking Status: Former smoker Tobacco Type: cigarettes ; Second Hand Exposure: Yes (Childhood) ; Hx Alcohol Use: Yes Alcohol type: wine Hx Substance Use: No Review of Systems See HPI for pertinent positives & negatives. and A total of 10 systems reviewed and were otherwise negative Physical Exam Vital Signs Vital Signs - 24 hr 06/19/19 09:45 06/19/19 10:37 06/19/19 12:17 Temperature 36.4 C L Temperature Source Oral Pulse Rate 94 H 64 Pulse Rate [Right Finger] 66 95 H Pulse Rate from SpO2 Sensor Respiratory Rate 16 16 14 Respiratory Effort / Characteristics Non-Labored Non-Labored Non-Labored Respiratory Depth Normal Normal Normal Blood Pressure 168/96 H Blood Pressure [Right Arm] 189/93 H 204/123 H Blood Pressure Mean 120 Blood Pressure Mean [Right Arm] 125 150 Blood Pressure Position Sitting Pulse Oximetry 97 96 94 Oxygen Delivery Method Room Air Room Air Room Air Sepsis Recent Fever Within 48 Hours Yes Sepsis New/Unexplained Change in Mental Status No Sepsis Action Taken by Nursing No Action Required 06/19/19 12:32 06/19/19 13:40 06/19/19 15:00 Temperature Temperature Source Pulse Rate 90 Pulse Rate [Right Finger] 98 H 102 H Pulse Rate from SpO2 Sensor 91 H Respiratory Rate 20 18 15 Respiratory Effort / Characteristics Respiratory Depth Blood Pressure 177/100 H Blood Pressure [Right Arm] 190/136 H 194/119 H Blood Pressure Mean 117 Blood Pressure Mean [Right Arm] 154 144 Blood Pressure Position Pulse Oximetry 94 94 97 Oxygen Delivery Method Room Air Room Air Room Air Sepsis Recent Fever Within 48 Hours Sepsis New/Unexplained Change in Mental Status Sepsis Action Taken by Nursing 06/19/19 15:30 06/19/19 17:04 Temperature Temperature Source Pulse Rate 78 77 Pulse Rate [Right Finger] Pulse Rate from SpO2 Sensor 77 Respiratory Rate 20 14 Respiratory Effort / Characteristics Respiratory Depth Blood Pressure 206/95 H 173/91 H Blood Pressure [Right Arm] Blood Pressure Mean 123 137 Blood Pressure Mean [Right Arm] Blood Pressure Position Pulse Oximetry 98 96 Oxygen Delivery Method Room Air Sepsis Recent Fever Within 48 Hours Sepsis New/Unexplained Change in Mental Status Sepsis Action Taken by Nursing GENERAL: Awake, alert, fatigued appearing, in no distress HENT: Normocephalic, atraumatic. Dry mucous membranes. EYES: Normal conjunctiva. Sclera non-icteric. CHEST: Left upper chest wall port with Zosyn infusing. RESPIRATORY: Clear to auscultation. No wheezes. Normal respiratory effort. CARDIAC: Normal rate. Normal rhythm. Extremities warm and well perfused. GI: Soft, non-distended. Left lower quadrant and right lower quadrant tenderness to palpation. Mild guarding RLQ/LLQ. RECTAL: Deferred. MUSCULOSKELETAL: Atraumatic. Chest examination reveals no tenderness LOWER EXTREMITIES: Calves are equal size bilaterally and non-tender. No edema NEURO: Normal sensorium. No sensory or motor deficits noted. No facial droop. SKIN: Warm and dry. Njaundice noted. Course Course 1001: Past medical records reviewed. The patient was evaluated in room B5. A complete history and physical exam was performed. 1256: I discussed the patient's case with Dr. Ken-[facility] [place]. Dr. Ken accepts transfer to [facility]. 1300: I updated the patient on her case. She is in agreement with the plan. 1703: [place] does not have a bed for the patient, so the patient will be further evaluated at [facility]. I reviewed the patient's case with Dr. Powers- Hospitalist [facility]. Dr. Powers will evaluate the patient for further management. Consultations Consultation #1: I discussed the patient's case with Dr. Ken-[facility] [place]. Dr. Ken accepts transfer to [facility]. Time: 12:56 Consultation #2: [place] does not have a bed for the patient, so the patient will be further evaluated at [facility]. I reviewed the patient's case with Dr. Powers-Hospitalist [facility]. Dr. Powers will evaluate the patient for further management. Time: 17:03 Administered Medications Lactated Ringer's (Lr) 1,000 mls @ 100 mls/hr IV .Q10H KAREN Stop: 07/19/19 13:14 Last Admin: 06/19/19 15:05 Dose: 100 mls/hr Documented by: [id number] Ioversol (Optiray 320 100ml) 94 ml IV ONCE PRN PRN Reason: Interaction Checking Stop: 06/23/19 11:48 Last Admin: 06/19/19 11:49 Dose: 94 ml Documented by: [id number] Discontinued Medications Sodium Chloride (Nss 1000ml) 1,000 mls @ 999 mls/hr IV .Q1H1M KAREN Stop: 06/19/19 11:15 Last Infusion: 06/19/19 11:36 Dose: 0 mls/hr Documented by: [id number] Admin: 06/19/19 10:35 Dose: 999 mls/hr Documented by: [id number] Magnesium Sulfate/Dextrose (Magnesium Sulfate / D5w) 1 gm in 100 mls @ 100 mls/hr IV ONE ONE Stop: 06/19/19 13:48 Last Infusion: 06/19/19 14:15 Dose: 0 mls/hr Documented by: [id number] Admin: 06/19/19 13:15 Dose: 100 mls/hr Documented by: [id number] Potassium Chloride (K Howard / Wtr) 10 meq in 100 mls @ 100 mls/hr IV ONE ONE Stop: 06/19/19 14:12 Last Infusion: 06/19/19 16:05 Dose: 0 mls/hr Documented by: [id number] Admin: 06/19/19 15:05 Dose: 100 mls/hr Documented by: [id number] Potassium Chloride (K Howard / Wtr) 10 meq in 100 mls @ 100 mls/hr IV Q1H KAREN Stop: 06/19/19 16:44 Last Admin: 06/19/19 16:35 Dose: 100 mls/hr Documented by: [id number] Ondansetron HCl (Zofran) 4 mg IV NOW STA Stop: 06/19/19 10:14 Last Admin: 06/19/19 10:34 Dose: 4 mg Documented by: [id number] Potassium Chloride (Klor-Con M20) 40 meq PO NOW STA Stop: 06/19/19 12:50 Last Admin: 06/19/19 13:14 Dose: 40 meq Documented by: [id number] Medical Decision Making Differential Diagnosis Differential diagnosis: Etiologies such as appendicitis, diverticulitis, PUD, biliary pathology, UTI, pancreatitis, obstruction, mesenteric ischemia, aortic pathology, infections, inflammatory bowel disease, renal colic, as well as others were entertained Medical Records Attestation: I reviewed the patient's medical records. Home Medications Current Medication List: was personally reviewed by me Laboratory Data Attestation: I reviewed the patient's lab results. Result diagrams: 06/19/19 10:25 06/19/19 10:25 Lab Results 06/19/19 06/19/19 06/19/19 Range/Units 10:25 10:25 12:18 WBC 5.51 (4.8-10.8) K/uL RBC 4.76 (4.2-5.4) M/uL Hgb 13.0 (12.0-16.0) g/dL Hct 40.8 (37-47) % MCV 85.7 (80-100) fL MCH 27.3 (25-34) pg MCHC 31.9 L (32-36) g/dL RDW Std Deviation 58.7 H (36.4-46.3) fL RDW Coeff of Mandeep 18.5 H (11.5-14.5) % Plt Count 161 (130-400) K/uL Immature Gran % (Auto) 0.2 % Neut % (Auto) 63.6 % Lymph % (Auto) 20.7 % [place] % (Auto) 11.6 % Eos % (Auto) 3.4 % Baso % (Auto) 0.5 % Immature Gran # (Auto) 0.01 (0.00-0.02) K/uL Neut # (Auto) 3.50 (1.4-6.5) K/uL Lymph # (Auto) 1.14 L (1.2-3.4) K/uL [place] # (Auto) 0.64 H (0.11-0.59) K/uL Eos # (Auto) 0.19 (0-0.5) K/uL Baso # (Auto) 0.03 (0-0.2) K/uL Sodium 141 (136-145) mmol/L Potassium 2.7 L (3.5-5.1) mmol/L Chloride 104 (98-107) mmol/L Carbon Dioxide 25 (21-32) mmol/L Anion Gap 12.0 H (3-11) BUN 6 L (7-18) mg/dl Creatinine 0.78 (0.6-1.2) mg/dl Est Cr Clr Drug Dosing Not Reportable Est GFR ( Amer) 89.3 Est GFR (Non-Af Amer) 77.0 BUN/Creatinine Ratio 7.6 L (10-20) Glucose 95 (70-99) mg/dl Calcium 11.3 H (8.5-10.1) mg/dl Magnesium 1.5 L (1.8-2.4) mg/dl Total Bilirubin 0.8 (0.2-1) mg/dl AST 47 H (15-37) U/L ALT 29 (12-78) U/L Alkaline Phosphatase 148 H (45-117) U/L Troponin I 0.073 H* (0-0.045) ng/ml Total Protein 7.1 (6.4-8.2) gm/dl Albumin 2.8 L (3.4-5.0) gm/dl Globulin 4.3 H (2.5-4.0) gm/dl Albumin/Globulin Ratio 0.7 L (0.9-2) Lipase 53 L (73-393) U/L Specimen Hemolysis Urine Color Yellow Urine Appearance Clear (Clear) Urine pH 7.0 (4.5-7.5) Ur Specific [place] 1.023 (1.000-1.030) Urine Protein 1+ H (Negative) Urine Glucose (UA) Negative (Negative) Urine Ketones 2+ H (Negative) Urine Blood Trace H (Negative) Urine Nitrite Negative (Negative) Urine Bilirubin Negative (Negative) Urine Urobilinogen Negative (Negative) Ur Leukocyte Esterase 1+ H (Negative) Urine WBC (Auto) 10-30 H (0-5) /hpf Urine RBC (Auto) 0-4 (0-4) /hpf U Hyaline Cast (Auto) 5-10 H (0-5) /lpf U Epithel Cells (Auto) >30 H (0-5) /lpf Urine Bacteria (Auto) Negative (Negative) Imaging Data Radiologist's Impression: Radiology results as stated below per my review and the radiologist's interpretation: CT abd pelvis IV con only CLINICAL HISTORY: 68 years-old Female presenting with llq pain, divertic, now RLQ pain. TECHNIQUE: Multidetector CT of the abdomen and pelvis was performed after the administration of intravenous contrast. IV contrast: 94 mL of Optiray 320. One or more dose lowering techniques were used consistent with the principles of ALARA (as low as reasonably achievable), including automatic exposure control, mA or kV adjustment to individual patient size, and/or use of iterative reconstruction. COMPARISON: 05/29/2019. CT DOSE (mGy.cm): The estimated cumulative dose is 953.00 mGy.cm. FINDINGS: Auriculotherapist topogram: Unremarkable. Lung bases: Normal heart size. No pericardial or pleural effusion. Minimal dependent changes likely atelectasis. Liver: Normal morphology. Density suggestive of hepatic steatosis. Focal hypoattenuation along the fissure for the ligament teres likely perfusional variation or focal fat. Patent hepatic vasculature. Biliary: No intrahepatic or extrahepatic biliary ductal dilatation. The gallbladder is likely physiologically distended. Pancreas: Moderate parenchymal atrophy. Spleen: Normal. Adrenal glands: Normal. Kidneys and ureters: Multiple cysts bilaterally. No nephrolithiasis or hydronephrosis. Ureters nondistended. Bladder: Normal. Pelvic organs: Uterus surgically absent. No adnexal masses. Bowel: Diverticulosis of the proximal to mid sigmoid colon with focal wall thickening. No pericolonic inflammatory change. Less extensive diverticulosis of the descending colon and right colon. The appendix is normal. No bowel obstruction. Peritoneal cavity: No free fluid or intraperitoneal gas. Lymph nodes: No enlarged lymph nodes in the abdomen or pelvis. Vasculature: Atherosclerosis of the normal caliber abdominal aorta. IVC patent. Abdominal wall: Normal. Musculoskeletal: Degenerative changes of the spine. IMPRESSION: 1. 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 No convincing evidence of acute diverticulitis. Less severe diverticulosis elsewhere. 2. No appendicitis. 3. No acute intra-abdominal pathology. 4. Distention of the gallbladder is likely on a physiologic basis. If the patient has right upper quadrant symptomatology, right upper quadrant ultrasound could be considered. ACT 112: Negative or not required by law. Electronically signed by: Walker Walter M.D. 06/19/2019 12:08 PM ECG Data Attestation: I personally reviewed and interpreted this ECG as follows: Indication: + abdominal pain Rate (beats per minute): 70 Rhythm: + sinus rhythm ECG Intervals/blocks: + Normal QT-c ECG ST segments: no ST elevation ECG Findings: no PVCs Blood Pressure Blood Pressure Findings: Elevated blood pressure Blood Pressure Disposition: further management by hospitalist CARMELO Reyes Patient is a 68-year-old female history of hypertension, GERD, asthma, IBS, hypothyroidism, CIDP, and diverticulitis with recurrent flares currently maintained on Zosyn presenting today complaining of concerns for worsening diverticulitis. Patient states she is planned to have colon surgery at [place] but not until July. Has been on daily Zosyn. Previously failed a course of ertapenem. Afebrile upon arrival. Patient states compliance with IVIG infusions for her CVID. Patient reports that she has been feeling nauseous and having diarrhea since Monday for 3 days. Today developed right lower quadrant pain. Reports she is does not quite feel right. No true fevers reported at home. Still having left lower quadrant abdominal pain but now encountering right side abdominal pain having limited oral intake feels dehydrated. Discussed with her surgeon at [place] recommend evaluation here today. Patient with new right-sided abdominal tenderness but not peritoneal. Discussed with her EKG basic labs were obtained. CT abdomen pelvis was obtained to see if there is changes medically with the change in pain she is experiencing. Does not appear septic. Patient has no significant leukocytosis with a white blood cell count of 5. No signs of anemia. Patient does have evidence of hypokalemia with a potassium of 2.7 significantly worsened from previous. No evidence of significant hepatitis or pancreatitis. Magnesium is also low. Troponin is slightly elevated which is new for her. No significant EKG changes however noted the patient not having chest pain. Likely more of a demand situation given her decreased intake. CT the abdomen pelvis completed with minimal inflammatory changes in the abdomen. No significant right upper quadrant tenderness. Repletion of the hypokalemia and hypomagnesemia was started here. Discussed with the patient. Discussed with her surgeon at [place]. Recommended she come down there for likely surgical intervention given that she is not doing well. Attempted transfer today but due to weather and bed situation does have somewhat of a prolonged wait. Patient was in agreement with this plan and was monitored here for several hours again waiting to see if transfer to this today could be accomplished. Patient was reevaluated during her time here at 5 PM call was made to [facility] without an open available bed. Given this discussed with ramona sin for admission overnight pending transfer with an available bed. Repeat BMP and troponin were ordered. Patient was in agreement with this plan. Impression & Plan Acute dehydration, Diverticulitis, Elevated troponin, Acute hypokalemia, Hypomagnesemia, Diarrhea Discharge Plan Visit Data Chief Complaint: GI Assessment Stated Complaint: DIVERTICULITIS FLARE UP ED Provider: Corey Reyna Discharge Problem: Acute dehydration, Diverticulitis, Elevated troponin, Acute hypokalemia, Hypomagnesemia, Diarrhea Patient Disposition: Transfer Acute Care Hospital Forms Stand Alone Forms: My [facility] Prescriptions Prescriptions: No Action triamcinolone acetonide [Nasacort] 55 mcg aerosol,spray 2 spray Intranasal QAM Qty: 16.9 RF: 3 simvastatin 20 mg tablet 20 mg PO HS Qty: 90 RF: 3 tramadol-acetaminophen 37.5-325 mg tablet 1 tab PO Q6H PRN (Reason: pain) Qty: 90 RF: 0 albuterol sulfate [Ventolin HFA] 90 mcg/actuation HFA aerosol inhaler 2 puff INHALATION Q4H PRN (Reason: Shortness Of Breath) Qty: 1 RF: 11 triamterene-hydrochlorothiazid 37.5-25 mg tablet 1 tab PO QAM Qty: 30 RF: 0 lansoprazole 30 mg capsule,delayed release(DR/EC) 30 mg PO QAM Qty: 90 RF: 0 albuterol sulfate 2.5 mg /3 mL (0.083 %) Solution For Nebulization 2.5 mg inhalation Q6H PRN (Reason: Shortness Of Breath) RF: 0 cetirizine [Zyrtec] 10 mg Tablet 10 mg PO QAM RF: 0 fludrocortisone 0.1 mg Tablet 0.1 mg PO QAM RF: 0 fluticasone propion-salmeterol [Advair Diskus] 500-50 mcg/dose Blister With Device 1 inh INHALATION BID RF: 0 levothyroxine 50 mcg Tablet 50 mcg PO QAM RF: 0 piperacillin-tazobactam [Zosyn] 2.25 gram Recon Soln 0 g IV CONT RF: 0 acetaminophen 325 mg Tablet 325 mg PO Q6H PRN (Reason: Pain) RF: 0 immune globulin,gamma(IgG)ifas 10 % Solution 1 dose IV MONTHLY RF: 0 Ensure Liquid 1 - 2 can PO BID RF: 0 potassium chloride [Klor-Con M20] 20 mEq tablet,ER particles/crystals 20 meq PO BID RF: 0 ondansetron 4 mg tablet,disintegrating 4 mg PO Q6H PRN (Reason: nausea and vomiting) Qty: 12 RF: 0 pantoprazole 40 mg Tablet,Delayed Release (Dr/Ec) 40 mg PO QAM Qty: 30 RF: 0 metoclopramide HCl 5 mg tablet 5 mg PO DAILY Qty: 30 RF: 0 Referrals Referrals: Joselito Harrington MD [Primary Care Provider] - Discharge Problem: Diarrhea Qualifiers: Diarrhea type: unspecified type Qualified Code(s): R19.7 - Diarrhea, unspecified The scribe's documentation has been prepared under my direction and personally reviewed by me in its entirety. I confirm that the note above accurately reflects all work, treatment, procedures, and medical decision making performed by me.
[2019-06-19] MEDS: LACTATED RINGER'S 1,000 ML IV SCH (15:05)
[2019-06-19] MEDS: POTASSIUM CHLORIDE / WTR 10 MEQ/100 ML PLCT IV SCH ×5 (16:35→23:26)
[2019-06-19] MEDS ORDERED: MAGNESIUM SULFATE 1GM / D5W BAG IV ONE (17:55)
[2019-06-19 17:58] LABS: BUN Creatinine Ratio 6.1 (10-20); Calcium 11.1 mg/dl (8.5-10.1); Creatinine Clr Calc Pharmacy 76.7 ml/min; Est GFR (African American) 101.7; Est GFR (Non-African American) 87.8; Potassium 2.8 mmol/L (3.5-5.1)
[2019-06-19 18:07] LABS: Troponin I 0.075 ng/ml (0-0.045)
[2019-06-19] MEDS ORDERED: ALBUTEROL 0.083% NEBU SOLN 3 ML VIAL NEB PRN (18:36)
[2019-06-19] MEDS ORDERED: ACETAMINOPHEN 65 ML IV PRN (18:36)
[2019-06-19] MEDS ORDERED: MoRPHine SULFATE 2 MG/ML CARP IV PRN (18:36)
[2019-06-19] MEDS ORDERED: MoRPHine SULFATE 4 MG/ML 1 ML CARP\\VIAL IV PRN (18:36)
[2019-06-19] MEDS ORDERED: ACETAMINOPHEN 1,000 MG/100 ML VIAL IV PRN (19:04)
[2019-06-19] MEDS ORDERED: POTASSIUM CHLORIDE 10 MEQ / 100ML WTR IV ONE (19:16)
--- NOTE | 2019-06-19 20:38 | History & Physical Report ---
Date of Service June 19, 2019 Assessment & Plan (1) Acute hypokalemia: Obs tele until bed available at [facility] Will replace and check in am. (2) Hypomagnesemia: Replaced in ED and already has corrected. (3) Diverticulitis: Being transferred to [facility] to service of colorectal surgeon Dr. Ken. Zosyn infusion will end tonight. I held further dosing until transfer or if in the am could give IV dose if no bed available. Pain and nausea control Npo other than ice chips overnight. (4) Elevated troponin: Suspect demand ischemia trop stable x2 third trop to follow No chest pain. (5) HTN (hypertension): IV hydralazine (6) GERD (gastroesophageal reflux disease): IV Pepcid. History of Present Illness 68 y/o female presented to the ED with sharp right lower abdominal pain over the previous 24 hours. This is in addition to chronic abdominal pain in the left lower quadrant. She is currently receiving Zosyn at home to treat diverticulitis. She has had nausea and anorexia causing very little po intake. She has had loose stools, but no blood per rectum. She has already been planned to have bowel resection with Dr. Ken in [facility] for mid July. Given her complicated course, the ED physician spoke with Dr. Ken who accepted patient on transfer to [facility]. At this time there is no bed available thus she is being admitted under observation until bed is available. She will be kept NPO. Her current Zosyn completes at 2200. . Primary Care Provider: Joselito Harrington MD Allergies Allergy/AdvReac Type Severity Reaction Status Date / Time levofloxacin Allergy Severe Anaphylaxis Verified 06/19/19 11:40 aspirin Allergy Intermediate HIVES Verified 06/19/19 11:40 house dust Allergy Intermediate ASTHMA Verified 06/19/19 11:40 TRIGGER pollen extracts Allergy Intermediate SHORTNESS Verified 06/19/19 11:40 OF BREATH montelukast [From Singulair] Allergy Unknown Unknown Verified 06/19/19 11:40 erythromycin base AdvReac Intermediate NAUSEA, Verified 06/19/19 11:40 DRY HEAVES fluticasone AdvReac Mild DIZZINESS Verified 06/19/19 11:40 Home Medications Home Medications Medication Instructions Recorded Confirmed Type albuterol sulfate 2.5 mg INHALATION Q6H PRN 06/09/18 06/19/19 History cetirizine [Zyrtec] 10 mg PO QAM 06/09/18 06/19/19 History fludrocortisone 0.1 mg PO QAM 06/09/18 06/19/19 History fluticasone propion-salmeterol 1 inh INHALATION BID 06/09/18 06/19/19 History [Advair Diskus] levothyroxine 50 mcg PO QAM 06/09/18 06/19/19 History immune globulin,gamma(IgG)ifas 1 dose IV MONTHLY 09/08/18 06/19/19 History Ensure 1 - 2 can PO BID 10/28/18 06/19/19 History triamcinolone acetonide 55 mcg 2 spray INTRANASAL QAM #16.9 ml 01/22/19 06/19/19 Rx nasal spray aerosol albuterol sulfate 90 mcg/actuation 2 puff INHALATION Q4H PRN #1 02/22/19 06/19/19 Rx aerosol inhaler inhaler ondansetron 4 mg PO Q6H PRN #12 tab 04/02/19 06/19/19 Rx potassium chloride [Klor-Con M20] 20 meq PO BID 04/02/19 06/19/19 History metoclopramide HCl 5 mg PO DAILY #30 tab 04/23/19 06/19/19 Rx pantoprazole 40 mg PO QAM #30 tab 04/23/19 06/19/19 Rx lansoprazole 30 mg capsule,delayed 30 mg PO QAM #90 cap 05/07/19 06/19/19 History release triamterene 37.5 1 tab PO QAM #30 tab 05/07/19 06/19/19 History mg-hydrochlorothiazide 25 mg tablet simvastatin 20 mg tablet 20 mg PO HS #90 tab 05/08/19 06/19/19 Rx tramadol 37.5 mg-acetaminophen 325 1 tab PO Q6H PRN #90 tab 06/07/19 06/19/19 Rx mg tablet acetaminophen 325 mg PO Q6H PRN 06/19/19 06/19/19 History piperacillin-tazobactam [Zosyn] 0 g IV CONT 06/19/19 06/19/19 History Past Med/Surg History Medical History Asthma (Chronic) Common variable immunodeficiency GERD (gastroesophageal reflux disease) HTN (hypertension) Hx of deep venous thrombosis (Resolved) Hx pulmonary embolism (Resolved) Hypothyroidism (Chronic) IBS (irritable bowel syndrome) Surgical History H/O shoulder surgery H/O vaginal surgery Correction History of total knee arthroplasty S/P vaginal hysterectomy Family History Grandmother Leukemia Stroke Mother Stroke Other Family history non-contributory Hypertension Tuberculosis Social History Preferred Language: Maltese Communication Ability: Effective Wood Router Required: No Beliefs That Will Affect Care: None marital status: Current Living Situation: Spouse Other Information That Helps Us Care for You: No Feels Safe at Home: Yes Safety Concerns: Feels Safe At This Time Smoking Status: Former smoker Tobacco Type: cigarettes ; Second Hand Exposure: Yes (Childhood) ; Hx Alcohol Use: Yes Alcohol type: wine Hx Substance Use: No Review of Systems Review of Systems: Constitutional- + low grade fever per patient. Eyes- no acute visual changes ENT- no sinus drainage; no pharyngitis Pulmonary- no cough, no wheezing, no shortness of breath Cardiac- no chest pain, no palpitations, no orthopnea, no dependent edema GI- As in HPI - no dysuria, no hematuria Musculoskeletal- no arthralgias, no myalgias Derm- no rashes, no new skin lesions. Hematologic- no unusual bruising, no unusual bleeding Lymphatics- no adenopathy Endocrine- no polyuria or polydipsia; no heat or cold intolerance Neuro- no headaches, no focal neurologic symptoms Psych- no anxiety, no depression Physical Exam Physical Exam: General- adult female, appears chronically ill. Head- atraumatic Eyes- PERRL, EOMI, anicteric ENT- oropharynx clear Neck- supple, no JVD, no adenopathy, no thyromegaly. Lungs- clear to auscultation and percussion Heart- regular rhythm; no murmur, no gallop, no rub appreciated. Left upper chest port with Zosyn infusing. Abdomen- + bowel sounds, soft, Tenderness to palpation in the b/l lower quadrants. Extremities- no pretibial edema, no calf tenderness; peripheral pulses intact Neuro- alert, oriented x 3; PERRL, EOMI; manager employment II-XII grossly intact, NON-focal. Skin- warm & dry Results & Data Vital Signs (Past 12 Hours) Vital Signs Temp Pulse Pulse Resp BP BP Pulse Ox 06/19/19 19:00 76 17 159/100 H 06/19/19 18:40 95 06/19/19 17:30 96 06/19/19 17:04 77 14 173/91 H 96 06/19/19 15:30 78 20 206/95 H 98 06/19/19 15:00 90 15 177/100 H 97 06/19/19 13:40 102 H 18 194/119 H 94 06/19/19 12:32 98 H 20 190/136 H 94 06/19/19 12:17 95 H 14 204/123 H 94 06/19/19 10:37 64 66 16 189/93 H 96 06/19/19 09:45 36.4 C L 94 H 16 168/96 H 97 Laboratory Results Laboratory Results WBC 5.51 K/uL (4.8-10.8) 06/19/19 10:25 RBC 4.76 M/uL (4.2-5.4) 06/19/19 10:25 Hgb 13.0 g/dL (12.0-16.0) 06/19/19 10:25 Hct 40.8 % (37-47) 06/19/19 10:25 MCV 85.7 fL (80-100) 06/19/19 10:25 MCH 27.3 pg (25-34) 06/19/19 10:25 MCHC 31.9 g/dL (32-36) L 06/19/19 10:25 RDW Std Deviation 58.7 fL (36.4-46.3) H 06/19/19 10:25 RDW Coeff of Mandeep 18.5 % (11.5-14.5) H 06/19/19 10:25 Plt Count 161 K/uL (130-400) 06/19/19 10:25 Immature Gran % (Auto) 0.2 % 06/19/19 10:25 Neut % (Auto) 63.6 % 06/19/19 10:25 Lymph % (Auto) 20.7 % 06/19/19 10:25 [place] % (Auto) 11.6 % 06/19/19 10:25 Eos % (Auto) 3.4 % 06/19/19 10:25 Baso % (Auto) 0.5 % 06/19/19 10:25 Immature Gran # (Auto) 0.01 K/uL (0.00-0.02) 06/19/19 10:25 Neut # (Auto) 3.50 K/uL (1.4-6.5) 06/19/19 10:25 Lymph # (Auto) 1.14 K/uL (1.2-3.4) L 06/19/19 10:25 [place] # (Auto) 0.64 K/uL (0.11-0.59) H 06/19/19 10:25 Eos # (Auto) 0.19 K/uL (0-0.5) 06/19/19 10:25 Baso # (Auto) 0.03 K/uL (0-0.2) 06/19/19 10:25 Sodium 138 mmol/L (136-145) 06/19/19 17:22 Potassium 2.8 mmol/L (3.5-5.1) L 06/19/19 17:22 Chloride 105 mmol/L (98-107) 06/19/19 17:22 Carbon Dioxide 27 mmol/L (21-32) 06/19/19 17:22 Anion Gap 6.0 (3-11) 06/19/19 17:22 BUN 4 mg/dl (7-18) L 06/19/19 17:22 Creatinine 0.70 mg/dl (0.6-1.2) 06/19/19 17:22 Est Cr Clr Drug Dosing 76.7 ml/min 06/19/19 17:22 Est GFR ( Amer) 101.7 06/19/19 17:22 Est GFR (Non-Af Amer) 87.8 06/19/19 17:22 BUN/Creatinine Ratio 6.1 (10-20) L 06/19/19 17:22 Glucose 97 mg/dl (70-99) 06/19/19 17:22 Calcium 11.1 mg/dl (8.5-10.1) H 06/19/19 17:22 Magnesium 2.0 mg/dl (1.8-2.4) 06/19/19 17:22 Total Bilirubin 0.8 mg/dl (0.2-1) 06/19/19 10:25 AST 47 U/L (15-37) H 06/19/19 10:25 ALT 29 U/L (12-78) 06/19/19 10:25 Alkaline Phosphatase 148 U/L (45-117) H 06/19/19 10:25 Troponin I 0.075 ng/ml (0-0.045) H* 06/19/19 17:22 Total Protein 7.1 gm/dl (6.4-8.2) 06/19/19 10:25 Albumin 2.8 gm/dl (3.4-5.0) L 06/19/19 10:25 Globulin 4.3 gm/dl (2.5-4.0) H 06/19/19 10:25 Albumin/Globulin Ratio 0.7 (0.9-2) L 06/19/19 10:25 Lipase 53 U/L (73-393) L 06/19/19 10:25 Specimen Hemolysis 06/19/19 10:25 Urine Color Yellow 06/19/19 12:18 Urine Appearance Clear (Clear) 06/19/19 12:18 Urine pH 7.0 (4.5-7.5) 06/19/19 12:18 Ur Specific [place] 1.023 (1.000-1.030) 06/19/19 12:18 Urine Protein 1+ (Negative) H 06/19/19 12:18 Urine Glucose (UA) Negative (Negative) 06/19/19 12:18 Urine Ketones 2+ (Negative) H 06/19/19 12:18 Urine Blood Trace (Negative) H 06/19/19 12:18 Urine Nitrite Negative (Negative) 06/19/19 12:18 Urine Bilirubin Negative (Negative) 06/19/19 12:18 Urine Urobilinogen Negative (Negative) 06/19/19 12:18 Ur Leukocyte Esterase 1+ (Negative) H 06/19/19 12:18 Urine WBC (Auto) 10-30 /hpf (0-5) H 06/19/19 12:18 Urine RBC (Auto) 0-4 /hpf (0-4) 06/19/19 12:18 U Hyaline Cast (Auto) 5-10 /lpf (0-5) H 06/19/19 12:18 U Epithel Cells (Auto) >30 /lpf (0-5) H 06/19/19 12:18 Urine Bacteria (Auto) Negative (Negative) 06/19/19 12:18 Diagnostic Findings [place], [place] [phone] CT Scan Report Patient: MARSHA BELLA Date: 06/19/19 MR#: [id number] Acct ID:[id number]: Date: [address] Zip: [place] [address] Age: 68Location: ED Sex: F Room/Bed: Att Phy:Diagnosis: DIVERTICULITIS FLARE UP Comfort Phy: Joselito Harrington MDService Date: 06/19/19 Fam Phy:Interpreting Phy: Walker Walter MD Admit Phy: Ordering Phy: Corey Reyna M.D. cc: ~ CT abd pelvis IV con only CLINICAL HISTORY: 68 years-old Female presenting with llq pain, divertic, now RLQ pain. TECHNIQUE: Multidetector CT of the abdomen and pelvis was performed after the administration of intravenous contrast. IV contrast: 94 mL of Optiray 320. One or more dose lowering techniques were used consistent with the principles of ALARA (as low as reasonably achievable), including automatic exposure control, mA or kV adjustment to individual patient size, and/or use of iterative reconstruction. COMPARISON: 05/29/2019. CT DOSE (mGy.cm): The estimated cumulative dose is 953.00 mGy.cm. FINDINGS: Sample Tailor topogram: Unremarkable. Lung bases: Normal heart size. No pericardial or pleural effusion. Minimal dependent changes likely atelectasis. Liver: Normal morphology. Density suggestive of hepatic steatosis. Focal hypoattenuation along the fissure for the ligament teres likely perfusional variation or focal fat. Patent hepatic vasculature. Biliary: No intrahepatic or extrahepatic biliary ductal dilatation. The gallbladder is likely physiologically distended. Pancreas: Moderate parenchymal atrophy. Spleen: Normal. Adrenal glands: Normal. Kidneys and ureters: Multiple cysts bilaterally. No nephrolithiasis or hydronephrosis. Ureters nondistended. Bladder: Normal. Pelvic organs: Uterus surgically absent. No adnexal masses. Bowel: Diverticulosis of the proximal to mid sigmoid colon with focal wall thickening. No pericolonic inflammatory change. Less extensive diverticulosis of the descending colon and right colon. The appendix is normal. No bowel obstruction. Peritoneal cavity: No free fluid or intraperitoneal gas. Lymph nodes: No enlarged lymph nodes in the abdomen or pelvis. Vasculature: Atherosclerosis of the normal caliber abdominal aorta. IVC patent. Abdominal wall: Normal. Musculoskeletal: Degenerative changes of the spine. IMPRESSION: 1. 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 No convincing evidence of acute diverticulitis. Less severe diverticulosis elsewhere. 2. No appendicitis. 3. No acute intra-abdominal pathology. 4. Distention of the gallbladder is likely on a physiologic basis. If the patient has right upper quadrant symptomatology, right upper quadrant ultrasound could be considered. ACT 112: Negative or not required by law. Electronically signed by: Walker Walter M.D. 06/19/2019 12:08 PM Dictated: 06/19/19 1202 Transcribed: 06/19/19 1202 Code Status & VTE Plan VTE Prophylaxis Plan VTE Prophylaxis will be ordered: Yes PG Care Time/CCT Total # of Minutes Spent Total Time Spent: 60 Total Time Spent with Patient: Total time spent is greater than 50% in coordination of care (as documented) at patient's floor/unit and/or counseling patient: (1) HTN (hypertension) Hypertension type: essential hypertension Qualified Code(s): I10 - Essential (primary) hypertension (2) GERD (gastroesophageal reflux disease) Esophagitis presence: without esophagitis Qualified Code(s): K21.9 - Gastro- esophageal reflux disease without esophagitis
[2019-06-19] MEDS: FAMOTIDINE 20 MG in SYRINGE 3 ML IV SCH (21:17)
[2019-06-19] MEDS: ENOXAPARIN INJ 40 MG/0.4 ML SYR SQ SCH (21:31)
[2019-06-19] MEDS: HydrALAZINE HCL 20 MG/ML VIAL IV PRN (21:38)
[2019-06-20] MEDS: ONDANSETRON INJ 2 MG/ML 2 ML VIAL IV PRN ×2 (00:09→10:40)
[2019-06-20] MEDS ORDERED: HEPARIN 100 UNIT/ML 5ML FLUSH FLUSH PRN (00:14)
[2019-06-20] MEDS: LACTATED RINGER'S 1,000 ML IV SCH ×2 (02:17→10:26)
[2019-06-20] MEDS: HydrALAZINE HCL 20 MG/ML VIAL IV PRN ×3 (03:33→19:54)
[2019-06-20] MEDS ORDERED: PROMETHAZINE HCL 6.25 MG in SODIUM CHLORIDE 0.9% 50 ML IV STA (04:29)
[2019-06-20 07:40] LABS: Hematocrit (blood only) 38.9 % (37-47); Hemoglobin 12.4 g/dL (12.0-16.0); Mean Corpuscular Hgb Conc 31.9 g/dL (32-36); Mean Corpuscular Volume 84.6 fL (80-100); Platelet Count 155 K/uL (130-400); RDW Standard Deviation 58.3 fL (36.4-46.3); White Blood Count 5.89 K/uL (4.8-10.8)
[2019-06-20] MEDS: FAMOTIDINE 20 MG in SYRINGE 3 ML IV SCH ×2 (08:10→19:58)
[2019-06-20 08:13] LABS: BUN Creatinine Ratio 6.1 (10-20); Calcium 10.6 mg/dl (8.5-10.1); Creatinine Clr Calc Pharmacy 94.8 ml/min; Est GFR (African American) 109.5; Est GFR (Non-African American) 94.5; Potassium 2.8 mmol/L (3.5-5.1)
[2019-06-20] MEDS: POTASSIUM CHLORIDE 20 MEQ TABCR PO SCH ×3 (10:40→19:55)
[2019-06-20] MEDS: POTASSIUM CHLORIDE / WTR 10 MEQ/100 ML PLCT IV SCH ×2 (10:41→11:41)
[2019-06-20] MEDS ORDERED: METOPROLOL TARTRATE 1 MG/ML VIAL IV STA (15:45)
[2019-06-20] MEDS ORDERED: PIPERACILL/TAZOBAC CONSULT ACTIVE PRN (15:45)
[2019-06-20] MEDS ORDERED: HYDROCODONE/ACETAMOPHEN 5/325MG TAB PO ONE (15:48)
[2019-06-20] MEDS ORDERED: NYSTATIN 30 ML, DEXAMETHASONE CONC 3.75 MG, DiphenhydrAMINE Syrup 300 MG, ORA-SWEET SYR... PO SCH (16:00)
[2019-06-20] MEDS ORDERED: PIPERACILLIN/TAZOBACTAM 3.375 GM in DEXTROSE 5% 100 ML IV ONE (16:00)
[2019-06-20 16:35] LABS: Calcium 11.1 mg/dl (8.5-10.1); Est GFR (African American) 107.6; Est GFR (Non-African American) 92.9; Potassium 3.1 mmol/L (3.5-5.1)
[2019-06-20] MEDS ORDERED: CALCITONIN SALMON 400 UNITS/2 ML SQ ONE (18:30)
[2019-06-20] MEDS ORDERED: D5NSS + 20MEQ KCL 20 MEQ/1,000 ML BAG IV SCH (18:30)
[2019-06-20] MEDS: ENOXAPARIN INJ 40 MG/0.4 ML SYR SQ SCH (19:55)
[2019-06-20] MEDS ORDERED: PIPERACILLIN/TAZOBACTAM 3.375 GM in DEXTROSE 5% 100 ML IV SCH (20:00)
--- NOTE | 2019-06-20 20:26 | Discharge Summary ---
Date of Service June 20, 2019 Admission HPI Per Admitting Provider 68 y/o female presented to the ED with sharp right lower abdominal pain over the previous 24 hours. This is in addition to chronic abdominal pain in the left lower quadrant. She is currently receiving Zosyn at home to treat diverticulitis. She has had nausea and anorexia causing very little po intake. She has had loose stools, but no blood per rectum. She has already been planned to have bowel resection with Dr. Ken in [place] for mid July. Given her complicated course, the ED physician spoke with Dr. Ken who accepted patient on transfer to [place]. At this time there is no bed available thus she is being admitted under observation until bed is available. She will be kept NPO. Of note - patient was hospitalized at [facility] from 05/29 to 05/31 for sigmoid diverticulitis. Following that stay she was sent home on a course of IV zosyn. She has remained on IV zosyn since late May. She had prior admissions at [facility] for diverticulitis on the following dates: 10/29 - 11/01, 04/18 - 04/23, and 05/05 - 05/13. Following the 05/13/19 hospitalization she was discharged home on IV zosyn as well. Has h/o CVID and last received IVIG on 06/04/2019. Principal Diagnosis chronic sigmoid diverticulitis; hypercalcemia; severe hypokalemia Discharge Exam Constitutional + ill appearing and + frail appearing; no acute distress ENMT Mouth: + dry oral mucous membranes Respiratory normal respiratory effort, lungs clear to auscultation Cardiovascular Rate/Rhythm: regular rate and regular rhythm Heart Sounds: normal S1 and normal S2; no murmur Vessels: posterior tibial pulses present and dorsalis pedis pulses present; no JVD Extremities: no edema Gastrointestinal (Abdomen) normal bowel sounds, soft, nontender, no hepatosplenomegaly Skin + pallor Psychiatric Orientation: alert, oriented to person, oriented to place and oriented to time (but slightly confused on dates, medical history, etc) Discharge Data Allergies Allergy/AdvReac Type Severity Reaction Status Date / Time levofloxacin Allergy Severe Anaphylaxis Verified 06/19/19 11:40 aspirin Allergy Intermediate HIVES Verified 06/19/19 11:40 house dust Allergy Intermediate ASTHMA Verified 06/19/19 11:40 TRIGGER pollen extracts Allergy Intermediate SHORTNESS Verified 06/19/19 11:40 OF BREATH montelukast [From Singulair] Allergy Unknown Unknown Verified 06/19/19 11:40 erythromycin base AdvReac Intermediate NAUSEA, Verified 06/19/19 11:40 DRY HEAVES fluticasone AdvReac Mild DIZZINESS Verified 06/19/19 11:40 Ordered Studies 06/19/19 CT abd pelvis - IMPRESSION: 1. 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 No convincing evidence of acute diverticulitis. Less severe diverticulosis elsewhere. 2. No appendicitis. 3. No acute intra-abdominal pathology. 4. Distention of the gallbladder is likely on a physiologic basis. If the patient has right upper quadrant symptomatology, right upper quadrant ultrasound could be considered. Hospital Course (1) Diverticulitis: Multiple admissions for sigmoid diverticulitis over the fall of 2018. Recently admitted for same in late May 2019. Following that admission was sent home on 3-week course of IV zosyn. Despite the IV antibiotics over the last few week she has had poor appetite, nausea, and diarrhea. She also developed RLQ abdominal pain on day of admission in addition to chronic LLQ abdominal pain. Following re-admission to [facility] she was given IV fluids, kept NPO, resumed on IV zosyn, and electrolyte disturbances were corrected. The patient was accepted to the service of colorectal surgeon Dr. Ken at [facility], and a bed finally became available late in the day on 06/20/19. She will be evaluated at [facility] for possible hemicolectomy due to the chronic nature of her sigmoid diverticulitis. (2) Acute hypokalemia: Severe hypokalemia with K of 2.7 at presentation. Required copious amounts of IV potassium and oral replacement. Last K level was 3.1 prior to transfer. Magnesium had been low and was replaced as well. Suspect a combination of chronic HCTZ use, diarrhea, and poor appetite led to her hypokalemia. (3) Hypercalcemia: Total calcium level in May 2019 was 10.5. It climbed to 11.1 this admission. Corrected calcium was 11.7. She had been taking HCTZ so it is possible that the HCTZ was the culprit for the high calcium. HCTZ was stopped. It is possible that the patient's fatigue, lethargy, and GI symptoms could have been worsened by the hypercalcemia. To be safe, in addition to IVF, a single dose of calcitonin 320mg SC x 1 was given to the patient on the afternoon of 06/20/19. IV bisphosphanate was deferred. Ionized calcium was indeed elevated. Intact PTH was normal. Phosphorus was low. 25-OH vit D level was scantly low. She will need ongoing surveillance of her calcium levels at [place]. (4) Hypomagnesemia: Replaced and resolved prior to discharge. (5) Elevated troponin: Suspect demand ischemia in setting of diverticulitis, electrolyte disturbances, etc. No ischemic symptoms while hospitalized. (6) HTN (hypertension): History of such, but due to significant autonomic insufficiency, there has been tendency not to treat her BPs in the past. (7) GERD (gastroesophageal reflux disease): Cont H2 irene. (8) Common variable immunodeficiency: Followed by Dr Joselito Harrington, [facility]. Last IVIG infusion 06/04/19 (by report). Receives treatments qmonthly. (9) Asthma: No exacerbation while here. (10) Hypothyroidism: TSH 04/2019 wnl. Cont synthroid. (11) Autonomic dysfunction: Continue florinef. Total Time Total Time Spent Total Time Spent (In Minutes): 45 Total Time Includes: Examination of the Patient, Discharge Planning and Medic ation Reconciliation Discharge Plan Discharge Items Patient Disposition: Transfer Acute Care Hospital Reason For Visit: HYPOKALEMIA, DIVERTICULITIS, ELEVATED TROP Discharge Diagnosis: Recurrent Diverticulitis Activity: Resume your previous activity Non-emergency contact: Primary Care Provider Call non-emergency contact if: you have any medication questions Follow-up/Referrals: Joselito Harrington MD [Primary Care Provider] - Diet: Regular Addtl Attending Provider Instructions: Ms. Cruz is a 68 year old female with a past medical history of recurrent diverticulitis, CVID, asthma, autonomic dysfunction, hypothyroidism, GERD and history of PE who presented to [facility] with sharp right lower abdominal pain over the previous 24 hours. This is in addition to chronic abdominal pain in the left lower quadrant secondary to recurrent diverticulitis. Recurrent Sigmoid Diverticulitis - patient w/a history of numerous admissions for the same, most recently from 10/29 - 11/01, 04/18 - 04/23, 05/05 - 05/13 and 05/29 - 05/31 - She previously failed a course of IV ertapenem -She was receiving Zosyn at home to treat diverticulitis. She has had nausea and anorexia causing very little po intake. She has had loose stools, but no blood per rectum. She has already been planned to have bowel resection with Dr. Ken in [place] for mid July. Given her complicated course, the ED physician spoke with Dr. Ken who accepted patient on transfer to [place]. She was admitted to our facility overnight as there were no beds available. She was kept NPO and her Zosyn was continued. -Of note, her labs were also remarkable for a potassium of 3.1, Cl of 109, Cr of 0.59, Phos of 1.9 and trop of 0.078. CVID - Diagnosed with common variable immunodeficiency and receives IVIG through her left sided chest port once monthly - follows w/Dr. Harrington Hypothyroidism - Continue home levothyroxine Hypertension/Autonomic dysfunction - Reportedly not on anti-hypertensive medications because of her hx of autonomic dysfunction for which she has had episodes of syncope and falls in the past - Follows with Dr. Carbajal - continue home fludrocortisone Asthma - Pt without symptoms of SOB or wheezing at this time - Will continue home Ventolin and Advair - Last admission for asthma exacerbation was in 2017, has never required intubation/ICU stay GERD - Continue home pantoprazole 40mg qAM Hyperlipidemia - Continue home simvastatin 20mg daily Pending Studies at Discharge: No Stand-Alone Forms: My [facility] [place] [employer] Skilled Items Patient informed of condition?: Yes DNR: No Discharge Level of Care: Other Communicable Disease: No Discharge Prognosis: Stable Lines: Peripheral IV Urinary Catheter: No Medications and DC Order Prescriptions: Continued triamcinolone acetonide [Nasacort] 55 mcg aerosol,spray 2 spray Intranasal QAM Qty: 16.9 RF: 3 simvastatin 20 mg tablet 20 mg PO HS Qty: 90 RF: 3 tramadol-acetaminophen 37.5-325 mg tablet 1 tab PO Q6H PRN (Reason: pain) Qty: 90 RF: 0 albuterol sulfate [Ventolin HFA] 90 mcg/actuation HFA aerosol inhaler 2 puff INHALATION Q4H PRN (Reason: Shortness Of Breath) Qty: 1 RF: 11 triamterene-hydrochlorothiazid 37.5-25 mg tablet 1 tab PO QAM Qty: 30 RF: 0 lansoprazole 30 mg capsule,delayed release(DR/EC) 30 mg PO QAM Qty: 90 RF: 0 albuterol sulfate 2.5 mg /3 mL (0.083 %) Solution For Nebulization 2.5 mg inhalation Q6H PRN (Reason: Shortness Of Breath) RF: 0 cetirizine [Zyrtec] 10 mg Tablet 10 mg PO QAM RF: 0 fludrocortisone 0.1 mg Tablet 0.1 mg PO QAM RF: 0 fluticasone propion-salmeterol [Advair Diskus] 500-50 mcg/dose Blister With Device 1 inh INHALATION BID RF: 0 levothyroxine 50 mcg Tablet 50 mcg PO QAM RF: 0 piperacillin-tazobactam [Zosyn] 2.25 gram Recon Soln 0 g IV CONT RF: 0 acetaminophen 325 mg Tablet 325 mg PO Q6H PRN (Reason: Pain) RF: 0 immune globulin,gamma(IgG)ifas 10 % Solution 1 dose IV MONTHLY RF: 0 Ensure Liquid 1 - 2 can PO BID RF: 0 potassium chloride [Klor-Con M20] 20 mEq tablet,ER particles/crystals 20 meq PO BID RF: 0 ondansetron 4 mg tablet,disintegrating 4 mg PO Q6H PRN (Reason: nausea and vomiting) Qty: 12 RF: 0 pantoprazole 40 mg Tablet,Delayed Release (Dr/Ec) 40 mg PO QAM Qty: 30 RF: 0 metoclopramide HCl 5 mg tablet 5 mg PO DAILY Qty: 30 RF: 0 Discharge Orders: Discharge Order (Routine); Ordered 06/20/19 Ordered By: Evan Sanford Admission Data Admit Date/Time: 06/20/19 18:17 Attending Provider: Adán Keita Admit Provider: Escobar Powers Primary Care Provider: Joselito Harrington Other Providers: Escobar Powers ; [facility]
== END 2019-06-20 21:45 | disposition short-term general hospital (02) | DRG 392 ==
LOC: 2S 09:44 → ED 09:44 → SUATTDRO 18:36 → 2S 19:42

== ENCOUNTER 2021-08-25 10:10 | Inpatient (IN) ==
[2021-08-25] MEDS ORDERED: SODIUM CHLORIDE 0.9% 1000ML 1,000 ML IV SCH (11:00)
[2021-08-25 11:04] LABS: Basophils # (auto) 0.02 K/uL (0-0.2); Basophils % (auto) 0.2 %; Eosinophils # (auto) 0.28 K/uL (0-0.5); Eosinophils % (auto) 2.8 %; Hematocrit (blood only) 40.7 % (37-47); Hemoglobin 13.1 g/dL (12.0-16.0); Immature Granulocytes # (auto) 0.03 K/uL (0.00-0.02); Immature Granulocytes % (auto) 0.3 %; Lymphocytes # (auto) 2.06 K/uL (1.2-3.4); Lymphocytes % (auto) 20.8 %; Mean Corpuscular Hemoglobin 29.4 pg (25-34); Mean Corpuscular Hgb Conc 32.2 g/dL (32-36); Mean Corpuscular Volume 91.5 fL (80-100); Mean Platelet Volume 11.6 fL (7.4-10.4); Monocytes % (auto) 7.1 %; Neutrophils # (auto) 6.81 K/uL (1.4-6.5); Neutrophils % (auto) 68.8 %; Platelet Count 223 K/uL (130-400); RDW Coefficient of Variation 15.4 % (11.5-14.5); RDW Standard Deviation 51.7 fL (36.4-46.3); Red Blood Count 4.45 M/uL (4.2-5.4)
--- NOTE | 2021-08-25 11:09 | Emergency Department Note ---
Impression & Plan Pulmonary emboli, Acute deep vein thrombosis of right iliac vein, Acute deep vein thrombosis (DVT) of inferior vena cava ED Provider Note NAME: MARSHA BELLA AGE: 70 SEX: F ARRIVES VIA: Walk-In INFORMANT: Patient ED PROVIDER(S): Ronen Truong MD CHIEF COMPLAINT: Iliac and IVC thrombus. Referred. PLAN: Disposition: Admit MEDICAL DECISION MAKING: The patient is a pleasant 70-year-old woman with a past medical history of common variable immunodeficiency, DVT and PE considered provoked in the setting of immobility previously no longer on anticoagulation, history of diverticulitis status post Jeanine procedure, parastomal hernia status post repair of parastomal hernia defect in December 2020 who presents to the emergency department referred by her PCP for evaluation and management of right iliac and IVC thrombus as well as suspected pulmonary emboli seen on outpatient CT which was performed as a part of evaluation for irregular ostomy output over the past month or so. She denies feeling any significant shortness of breath. She reports she has had intermittent swelling of her left leg but not of her right. She denies leg or calf pain. She has any chest or back pain. She is unaware of any family history of clotting disorders. Outpatient CT results below demonstrate large thrombus within the right common iliac extending into the IVC with possible pulmonary emboli. Note is made of parastomal hernia that is decreased in size. Nonspecific stranding is seen adjacent to the hernia. There is no evidence of bowel obstruction Outpatient CT abd/pelvis: 08/25/2021 @ 0943. IMPRESSION: 1. Large thrombus within the right common iliac vein extending into the IVC. Possible small pulmonary emboli within the right lower lobe. Findings discussed with Lauren Orellana at time of dictation. 2. Parastomal hernia which has decreased in size since prior examination. Mild nonspecific stranding within and adjacent to the hernia sac. Redemonstration of a lower abdominal ventral hernia which contains multiple small bowel loops without resultant bowel obstruction. 3. Colonic diverticulosis. No evidence for acute diverticulitis. On arrival patient is no distress, afebrile stable vital signs. Her abdomen is benign. EKG without overt acute ischemia. Chest x-ray negative for acute cardiopulmonary process. WBC, H/H and platelets within normal limits. Chemistry without metabolic acidosis. Electrolytes and LFTs without significant abnormality. Troponin negative/undetectable. BNP within normal limits. Lipase is not elevated. Given the patient's thrombosis without known provoking factors in the setting of prior DVT/PE hypercoagulable panel was ordered and is pending. COVID-19 RNA, SREE test was negative. CT of the chest confirms several lobar and segmental right-sided pulmonary emboli. Patient agrees with plan for admission. She was ordered for initial treatment with Lovenox. Dr. Talley [facility] [place] hospital[place] will evaluate the patient for admission. Triage Nursing notes reviewed and agree them. Prior medical records reviewed Vital Signs: reviewed and remarkable for hypertension. Differential diagnosis: Appendicitis, ovarian cyst, ovarian torsion, ectopic , TOA, PID, infections, diverticulitis, UTI, obstruction, mesenteric ischemia, aortic pathology, inflammatory bowel disease, renal colic, PUD, pancreatitis, biliary pathology, hernia, volvulus, constipation, as well as other pathologies. ER treatment provided: See below. Diagnostics interpreted by me: ECG: Sinus rhythm, 99 bpm, no ectopy, LVH, no overt ST elevation or depression, QTC 462, QRS 84. Cardiac Monitoring: An order for continuous cardiac monitoring was placed and demonstrated sinus rhythm, 99 bpm, no ectopy Laboratory studies: See below Imaging studies: See below Consultation(s): NETTIE Landry hospitalist will evaluate the patient for admission. HPI: The patient is a pleasant 70-year-old woman with a past medical history of common variable immunodeficiency, DVT and PE considered provoked in the setting of immobility previously no longer on anticoagulation, history of diverticulitis status post Jeanine procedure, parastomal hernia status post repair of parastomal hernia defect in December 2020 who presents to the emergency department referred by her PCP for evaluation and management of right iliac and IVC thrombus as well as suspected pulmonary emboli seen on outpatient CT which was performed as a part of evaluation for irregular ostomy output over the past month or so. She denies feeling any significant shortness of breath. She reports she has had intermittent swelling of her left leg but not of her right. She denies leg or calf pain. She has any chest or back pain. She is unaware of any family history of clotting disorders. Outpatient CT results below demonstrate large thrombus within the right common iliac extending into the IVC with possible pulmonary emboli. Note is made of parastomal hernia that is decreased in size. Nonspecific stranding is seen adjacent to the hernia. There is no evidence of bowel obstruction Outpatient CT abd/pelvis: 08/25/2021 @ 0943. IMPRESSION: 1. Large thrombus within the right common iliac vein extending into the IVC. Possible small pulmonary emboli within the right lower lobe. Findings discussed with Lauren Orelalna at time of dictation. 2. Parastomal hernia which has decreased in size since prior examination. Mild nonspecific stranding within and adjacent to the hernia sac. Redemonstration of a lower abdominal ventral hernia which contains multiple small bowel loops without resultant bowel obstruction. 3. Colonic diverticulosis. No evidence for acute diverticulitis. ROS: See above HPI for pertinent positives & negatives. A total of 10 systems reviewed and were otherwise negative. PAST MEDICAL HISTORY:See Below PAST SURGICAL HISTORY:See Below FAMILY HISTORY:See Below SOCIAL HISTORY:See Below HOME MEDICATIONS:See Below ALLERGIES:See Below VITALS:See Below PHYSICAL EXAMINATION: GENERAL: Awake, alert, relatively well-appearing, in no distress, BMI 41.3. HENT: Normocephalic, atraumatic. Oropharynx unremarkable. EYES: Normal conjunctiva. Sclera non-icteric. NECK: Supple. No nuchal rigidity. FROM. No JVD. RESPIRATORY: Clear to auscultation. CARDIAC: Regular rate, normal rhythm. Extremities warm and well perfused. Pulses equal. ABDOMEN: Soft, non-distended. No tenderness to palpation. No rebound or guarding . LLQ colostomy, c/d/i. RECTAL: Deferred. MUSCULOSKELETAL: Chest examination reveals no tenderness. The back is symmetrical on inspection without obvious abnormality. There is no CVA tenderness to palpation. No joint edema. LOWER EXTREMITIES: Calves are equal size bilaterally and non-tender. No edema. No discoloration. NEURO: Normal sensorium. No sensory or motor deficits noted. SKIN: No rash or jaundice noted. ED COURSE: Critical Care: I have personally spent greater than 35 minutes of critical care time in the direct management of this patient. This includes bedside care, interpretation of diagnostic studies, and testing, discussion with consultants, patient, and family members, and other required patient management activities. This 35 minutes is in excess of all separately billable procedures. Ronen Truong MD Past Med/Surg History Medical History (Updated 08/25/21 @ 17:13 by Ronen Truong MD) Asthma Autonomic dysfunction Colostomy in place Common variable immunodeficiency Diverticulosis Dyslipidemia GERD (gastroesophageal reflux disease) HTN (hypertension) Hx of deep venous thrombosis Hx pulmonary embolism Hypothyroidism IBS (irritable bowel syndrome) Pneumonia Respiratory failure with hypoxia Surgical History H/O shoulder surgery H/O vaginal surgery (~1999) Correction History of breast biopsy (2006) History of total knee arthroplasty S/P partial colectomy (~07/2019) S/P vaginal hysterectomy (~1989) Status post right rotator cuff repair (2004) Family History Grandmother Leukemia Stroke Mother Stroke Other Family history non-contributory Hypertension Tuberculosis Social History Smoking Status: Never smoker Second Hand Exposure: Yes (Childhood); Hx Alcohol Use: Yes Alcohol type: wine Hx Substance Use: No Preferred Language: Macedonian Communication Ability: Effective Doughnut Fryer Required: No Beliefs That Will Affect Care: None marital status: Current Living Situation: Spouse Feels Safe at Home: Yes Assistive Devices: Walker Allergies Allergies Allergy/AdvReac Type Severity Reaction Status Date / Time levofloxacin Allergy Severe Anaphylaxis Verified 08/25/21 15:48 aspirin Allergy Intermediate HIVES Verified 08/25/21 15:48 house dust Allergy Intermediate ASTHMA Verified 08/25/21 15:48 TRIGGER pollen extracts Allergy Intermediate SHORTNESS Verified 08/25/21 15:48 OF BREATH montelukast [From Singulair] Allergy Unknown Unknown Verified 08/25/21 15:48 Inhaled Anesthetics (Halogen AdvReac Severe stops Verified 08/25/21 15:48 Based) breathing erythromycin base AdvReac Intermediate NAUSEA, Verified 08/25/21 15:48 DRY HEAVES famotidine [From Pepcid] AdvReac Intermediate HALLUCINATI Verified 08/25/21 15:51 ONS fluticasone AdvReac Mild DIZZINESS Verified 08/25/21 15:48 Home Meds Home Medications Medication Instructions Recorded Confirmed cholecalciferol (vitamin D3) 25 25 mcg PO QAM 05/25/20 08/25/21 mcg (1,000 unit) capsule losartan 100 mg tablet 100 mg PO QAM 05/25/20 08/25/21 levothyroxine 50 mcg tablet 25 mcg PO QAM 10/31/20 08/25/21 furosemide 20 mg tablet 20 mg PO DAILY PRN 04/01/21 08/25/21 lorazepam 0.5 mg tablet 0.5 mg PO BID PRN 08/25/21 08/25/21 Previous Rx's Medication Instructions Recorded albuterol sulfate 2.5 mg INHALATION Q6H PRN #360 ml 07/24/19 albuterol sulfate 90 mcg/actuation 2 puff INHALATION Q4H PRN #1 06/22/20 aerosol inhaler (Ventolin HFA) inhaler ondansetron 4 mg disintegrating 4 mg PO Q6H PRN #14 tab 11/01/20 tablet fluticasone 500 mcg-salmeterol 50 1 inh INHALATION BID #60 ea 01/29/21 mcg/dose blistr powdr for inhalation (Advair Diskus) pantoprazole 40 mg tablet,delayed 40 mg PO QAM #90 tab 06/21/21 release simvastatin 20 mg tablet 20 mg PO HS #90 tab 07/12/21 immune glob,gamma (IgG) 10 30 g IV Q4WK 30 Days #300 ml 08/02/21 %-gly-IgA over 50 mcg/mL injection solution (Gammagard Liquid) folic acid 1 mg tablet 1 mg PO HS #90 tab 08/09/21 Results & Data (ED) Vital Signs Vital Signs - 24 hr 08/25/21 10:17 08/25/21 10:40 08/25/21 10:50 Temperature 36.3 C L Temperature Source Temporal Artery Scan Pulse Rate 102 H 97 H 91 H Pulse Rate from SpO2 Sensor Pulse Rhythm Regular Pulse Strength Normal Respiratory Rate 20 18 17 Respiratory Effort / Characteristics Non-Labored Spontaneous Respiratory Depth Normal Respiratory Pattern Regular Blood Pressure 192/91 H Blood Pressure Mean 124 Blood Pressure Position Sitting Pulse Oximetry 98 96 96 Oxygen Delivery Method Room Air Room Air Room Air Sepsis Recent Fever Within 48 Hours No Sepsis New/Unexplained Change in Mental Status No Sepsis Action Taken by Nursing No Action Required 08/25/21 11:00 08/25/21 11:04 08/25/21 11:10 Temperature Temperature Source Pulse Rate 94 H 90 90 Pulse Rate from SpO2 Sensor 90 Pulse Rhythm Pulse Strength Respiratory Rate 14 15 16 Respiratory Effort / Characteristics Respiratory Depth Respiratory Pattern Blood Pressure Blood Pressure Mean Blood Pressure Position Pulse Oximetry 96 97 96 Oxygen Delivery Method Room Air Room Air Room Air Sepsis Recent Fever Within 48 Hours Sepsis New/Unexplained Change in Mental Status Sepsis Action Taken by Nursing 08/25/21 11:20 08/25/21 11:30 08/25/21 11:40 Temperature Temperature Source Pulse Rate 89 91 H 89 Pulse Rate from SpO2 Sensor 89 91 H 89 Pulse Rhythm Pulse Strength Respiratory Rate 17 18 18 Respiratory Effort / Characteristics Respiratory Depth Respiratory Pattern Blood Pressure Blood Pressure Mean Blood Pressure Position Pulse Oximetry 95 96 96 Oxygen Delivery Method Room Air Room Air Room Air Sepsis Recent Fever Within 48 Hours Sepsis New/Unexplained Change in Mental Status Sepsis Action Taken by Nursing 08/25/21 11:50 08/25/21 12:00 08/25/21 12:08 Temperature Temperature Source Pulse Rate 90 88 84 Pulse Rate from SpO2 Sensor 90 88 84 Pulse Rhythm Pulse Strength Respiratory Rate 18 17 18 Respiratory Effort / Characteristics Respiratory Depth Respiratory Pattern Blood Pressure 167/98 H 167/98 H Blood Pressure Mean 121 121 Blood Pressure Position Pulse Oximetry 96 97 96 Oxygen Delivery Method Room Air Room Air Room Air Sepsis Recent Fever Within 48 Hours Sepsis New/Unexplained Change in Mental Status Sepsis Action Taken by Nursing 08/25/21 12:24 08/25/21 12:30 08/25/21 12:40 Temperature Temperature Source Pulse Rate 92 H 85 84 Pulse Rate from SpO2 Sensor 92 H 86 83 Pulse Rhythm Pulse Strength Respiratory Rate 18 21 18 Respiratory Effort / Characteristics Respiratory Depth Respiratory Pattern Blood Pressure Blood Pressure Mean Blood Pressure Position Pulse Oximetry 97 96 98 Oxygen Delivery Method Room Air Room Air Room Air Sepsis Recent Fever Within 48 Hours Sepsis New/Unexplained Change in Mental Status Sepsis Action Taken by Nursing 08/25/21 12:50 08/25/21 13:00 08/25/21 13:10 Temperature Temperature Source Pulse Rate 84 84 85 Pulse Rate from SpO2 Sensor 84 84 81 Pulse Rhythm Pulse Strength Respiratory Rate 16 14 13 Respiratory Effort / Characteristics Respiratory Depth Respiratory Pattern Blood Pressure Blood Pressure Mean Blood Pressure Position Pulse Oximetry 95 96 95 Oxygen Delivery Method Room Air Sepsis Recent Fever Within 48 Hours Sepsis New/Unexplained Change in Mental Status Sepsis Action Taken by Nursing 08/25/21 13:20 08/25/21 13:48 08/25/21 13:50 Temperature Temperature Source Pulse Rate 89 86 86 Pulse Rate from SpO2 Sensor 91 H 86 87 Pulse Rhythm Pulse Strength Respiratory Rate 23 18 18 Respiratory Effort / Characteristics Respiratory Depth Respiratory Pattern Blood Pressure 184/94 H Blood Pressure Mean 124 Blood Pressure Position Pulse Oximetry 96 96 95 Oxygen Delivery Method Room Air Room Air Sepsis Recent Fever Within 48 Hours Sepsis New/Unexplained Change in Mental Status Sepsis Action Taken by Nursing 08/25/21 14:00 08/25/21 14:10 08/25/21 14:20 Temperature Temperature Source Pulse Rate 93 H 84 86 Pulse Rate from SpO2 Sensor 94 H 83 87 Pulse Rhythm Pulse Strength Respiratory Rate 20 18 18 Respiratory Effort / Characteristics Respiratory Depth Respiratory Pattern Blood Pressure Blood Pressure Mean Blood Pressure Position Pulse Oximetry 95 95 95 Oxygen Delivery Method Room Air Room Air Room Air Sepsis Recent Fever Within 48 Hours Sepsis New/Unexplained Change in Mental Status Sepsis Action Taken by Nursing 08/25/21 14:30 08/25/21 14:40 08/25/21 14:50 Temperature Temperature Source Pulse Rate 84 88 88 Pulse Rate from SpO2 Sensor 84 88 87 Pulse Rhythm Pulse Strength Respiratory Rate 18 12 13 Respiratory Effort / Characteristics Respiratory Depth Respiratory Pattern Blood Pressure Blood Pressure Mean Blood Pressure Position Pulse Oximetry 96 95 97 Oxygen Delivery Method Room Air Room Air Room Air Sepsis Recent Fever Within 48 Hours Sepsis New/Unexplained Change in Mental Status Sepsis Action Taken by Nursing 08/25/21 15:44 08/25/21 15:50 08/25/21 16:00 Temperature Temperature Source Pulse Rate 84 77 79 Pulse Rate from SpO2 Sensor 83 79 79 Pulse Rhythm Pulse Strength Respiratory Rate 14 13 13 Respiratory Effort / Characteristics Respiratory Depth Respiratory Pattern Blood Pressure Blood Pressure Mean Blood Pressure Position Pulse Oximetry 96 97 97 Oxygen Delivery Method Sepsis Recent Fever Within 48 Hours Sepsis New/Unexplained Change in Mental Status Sepsis Action Taken by Nursing 08/25/21 16:10 Temperature Temperature Source Pulse Rate 81 Pulse Rate from SpO2 Sensor 82 Pulse Rhythm Pulse Strength Respiratory Rate 14 Respiratory Effort / Characteristics Respiratory Depth Respiratory Pattern Blood Pressure Blood Pressure Mean Blood Pressure Position Pulse Oximetry 96 Oxygen Delivery Method Room Air Sepsis Recent Fever Within 48 Hours Sepsis New/Unexplained Change in Mental Status Sepsis Action Taken by Nursing Laboratory Data Attestation: I reviewed the patient's lab results. Result diagrams: 08/25/21 10:35 08/25/21 10:35 Lab Results 08/25/21 08/25/21 08/25/21 Range/Units 10:35 10:35 10:35 WBC 9.90 (4.8-10.8) K/uL RBC 4.45 (4.2-5.4) M/uL Hgb 13.1 (12.0-16.0) g/dL Hct 40.7 (37-47) % MCV 91.5 (80-100) fL MCH 29.4 (25-34) pg MCHC 32.2 (32-36) g/dL RDW Std Deviation 51.7 H (36.4-46.3) fL RDW Coeff of Mandeep 15.4 H (11.5-14.5) % Plt Count 223 (130-400) K/uL MPV 11.6 H (7.4-10.4) fL Immature Gran % (Auto) 0.3 % Neut % (Auto) 68.8 % Lymph % (Auto) 20.8 % Childress % (Auto) 7.1 % Eos % (Auto) 2.8 % Baso % (Auto) 0.2 % Neut # (Auto) 6.81 H (1.4-6.5) K/uL Lymph # (Auto) 2.06 (1.2-3.4) K/uL Childress # (Auto) 0.70 H (0.11-0.59) K/uL Eos # (Auto) 0.28 (0-0.5) K/uL Baso # (Auto) 0.02 (0-0.2) K/uL Immature Gran # (Auto) 0.03 H (0.00-0.02) K/uL PT 9.8 (9.0-12.0) Seconds INR 1.0 (0.9-1.1) APTT 22.2 (21.0-31.0) Seconds PTT Ratio 0.8 Sodium 139 (136-145) mmol/L Potassium 3.6 (3.5-5.1) mmol/L Chloride 106 (98-107) mmol/L Carbon Dioxide 25 (21-32) mmol/L Anion Gap 8 (3-11) BUN 13 (6-23) mg/dl Creatinine 0.86 (0.6-1.2) mg/dl Est Cr Clr Drug Dosing 66.3 ml/min Est GFR ( Amer) 78.2 ml/min Est GFR (Non-Af Amer) 67.5 ml/min BUN/Creatinine Ratio 15.1 (10-20) Glucose 113 H (70-99(Fasting)) mg/dl Calcium 9.8 (8.5-10.1) mg/dl Phosphorus 2.0 L (2.5-4.9) mg/dl Magnesium 2.0 (1.7-2.4) mg/dl Total Bilirubin 0.5 (0.2-1.0) mg/dl AST 20 (13-39) U/L ALT 15 (7-52) U/L Alkaline Phosphatase 124 H (34-104) U/L Troponin I < 0.03 (0-0.04) ng/ml B-Natriuretic Peptide (0-100) pg/ml Total Protein 7.0 (6.0-8.3) gm/dl Albumin 3.6 (3.4-5.0) gm/dl Globulin 3.4 (2.5-4.0) gm/dl Albumin/Globulin Ratio 1.1 (0.9-2) Lipase 28 (11-82) U/L SARS-CoV-2, RNA, NAAT (NEGATIVE) 08/25/21 08/25/21 Range/Units 11:10 11:11 WBC (4.8-10.8) K/uL RBC (4.2-5.4) M/uL Hgb (12.0-16.0) g/dL Hct (37-47) % MCV (80-100) fL MCH (25-34) pg MCHC (32-36) g/dL RDW Std Deviation (36.4-46.3) fL RDW Coeff of Mandeep (11.5-14.5) % Plt Count (130-400) K/uL MPV (7.4-10.4) fL Immature Gran % (Auto) % Neut % (Auto) % Lymph % (Auto) % Childress % (Auto) % Eos % (Auto) % Baso % (Auto) % Neut # (Auto) (1.4-6.5) K/uL Lymph # (Auto) (1.2-3.4) K/uL Childress # (Auto) (0.11-0.59) K/uL Eos # (Auto) (0-0.5) K/uL Baso # (Auto) (0-0.2) K/uL Immature Gran # (Auto) (0.00-0.02) K/uL PT (9.0-12.0) Seconds INR (0.9-1.1) APTT (21.0-31.0) Seconds PTT Ratio Sodium (136-145) mmol/L Potassium (3.5-5.1) mmol/L Chloride (98-107) mmol/L Carbon Dioxide (21-32) mmol/L Anion Gap (3-11) BUN (6-23) mg/dl Creatinine (0.6-1.2) mg/dl Est Cr Clr Drug Dosing ml/min Est GFR ( Amer) ml/min Est GFR (Non-Af Amer) ml/min BUN/Creatinine Ratio (10-20) Glucose (70-99(Fasting)) mg/dl Calcium (8.5-10.1) mg/dl Phosphorus (2.5-4.9) mg/dl Magnesium (1.7-2.4) mg/dl Total Bilirubin (0.2-1.0) mg/dl AST (13-39) U/L ALT (7-52) U/L Alkaline Phosphatase (34-104) U/L Troponin I (0-0.04) ng/ml B-Natriuretic Peptide 33 (0-100) pg/ml Total Protein (6.0-8.3) gm/dl Albumin (3.4-5.0) gm/dl Globulin (2.5-4.0) gm/dl Albumin/Globulin Ratio (0.9-2) Lipase (11-82) U/L SARS-CoV-2, RNA, NAAT NEGATIVE (NEGATIVE) Administered Medications Discontinued Medications Enoxaparin Sodium (Enoxaparin 100 Mg/1ml Syr) 100 mg SQ ONE STA Stop: 08/25/21 11:48 Last Admin: 08/25/21 13:21 Dose: 100 mg Documented by: [id number] Sodium Chloride (Nss 1000ml) 1,000 mls @ 125 mls/hr IV .Q8H KAREN Stop: 09/24/21 10:59 Last Infusion: 08/25/21 15:44 Dose: 0 mls/hr Documented by: [id number] Admin: 08/25/21 11:04 Dose: 125 mls/hr Documented by: [id number] Famotidine (Pepcid 20mg Iv Push) 20 mg in 5 mls @ 2.5 mls/min IV NOW STA Stop: 08/25/21 11:38 Last Admin: 08/25/21 12:30 Dose: Not Given Documented by: [id number] Ioversol (Optiray 320 125ml) 97 ml IV ONCE ONE Stop: 08/25/21 13:34 Last Admin: 08/25/21 13:34 Dose: 97 ml Documented by: [id number] Ondansetron HCl (Ondansetron Inj 2 Mg/Ml 2 Ml Vial) Confirm Administered Dose 4 mg .ROUTE .STK-MED ONE Stop: 08/25/21 11:21 Last Admin: 08/25/21 11:21 Dose: 4 mg Documented by: [id number] Imaging Data Radiologist's Impression: Chest CTA 08/25/21 10:52 CT ANGIOGRAPHY OF THE CHEST, PULMONARY EMBOLUS PROTOCOL CLINICAL HISTORY: Shortness of breath. Evaluate for pulmonary embolus. COMPARISON STUDY: Chest CT July 04, 2017. Chest radiograph performed earlier today. TECHNIQUE: Following IV administration of 97 mL of Optiray, helical axial images of the chest were obtained utilizing the pulmonary embolus protocol. Maximal intensity projections and sagittal and coronal reformats were viewed on an independent 3D workstation. IV contrast was administered without complication. Automated exposure control was utilized for the study. A dose lowering technique was utilized adhering to the principles of ALARA. CT DOSE: 670.64 mGy.cm FINDINGS: Left subclavian [id number]-Drty is in place. No enlarged axillary, mediastinal or hilar lymph nodes are present. Note is made of several lobar and segmental right-sided pulmonary emboli. No central pulmonary embolus is present. There is no CT evidence for right heart strain. Mild cardiomegaly is noted. No pericardial effusion. Small hiatal hernia is present. There is no pulmonary infarct. There are no suspicious pulmonary nodules. No acute fracture or suspicious lesion is identified within visualized skeletal structures. IMPRESSION: 1. Several lobar and segmental right-sided pulmonary emboli. 2. No pulmonary infarct. 3. Small hiatal hernia. ACT 112: Negative or not required by law. Electronically signed by: Trung Milligan M.D. 08/25/2021 2:06 PM Chest X-Ray 08/25/21 10:53 SINGLE VIEW CHEST CLINICAL HISTORY: Atypical chest pain. FINDINGS: An AP, portable, upright chest radiograph is compared to study dated 06/04/2019. Correlation is made with chest CT dated 07/04/2017. The left subclavian central venous infusion port is unchanged in position. The heart is top normal for projection noting atherosclerotic calcification of the thoracic aorta. The pulmonary vasculature is noncongested. Chronic interstitial thickening is simila r to previous. There is bibasilar scarring/atelectasis. No airspace consolidation or large pleural effusion is identified. No pneumothorax is seen. The skeletal structures are osteopenic. The arthritic change is noted in the left shoulder. Bony thorax is grossly intact. IMPRESSION: No acute cardiopulmonary abnormality. ACT 112: Negative or not required by law. Electronically signed by: Taz Talavera M.D. 08/25/2021 11:33 AM Discharge Plan Visit Data Chief Complaint: Abnormal Labs/Diagnostic Testing Stated Complaint: FOUND BLOOD CLOTS IN LUNGS, SOB ED Provider: Ronen Truong Discharge Problem: Pulmonary emboli, Acute deep vein thrombosis of right iliac vein, Acute deep vein thrombosis (DVT) of inferior vena cava Forms Stand Alone Forms: [facility] [place] [employer] Prescriptions Prescriptions: No Action pantoprazole 40 mg tablet,delayed release (DR/EC) 40 mg PO QAM Qty: 90 RF: 3 simvastatin 20 mg tablet 20 mg PO HS Qty: 90 RF: 3 Gammagard Liquid 10 % solution 30 g IV Q4WK 30 Days Qty: 300 RF: 11 folic acid 1 mg tablet 1 mg PO HS Qty: 90 RF: 3 furosemide 20 mg tablet 20 mg PO DAILY PRN (Reason: Edema) RF: 0 albuterol sulfate 2.5 mg /3 mL (0.083 %) solution for nebulization 2.5 mg inhalation Q6H PRN (Reason: Shortness Of Breath) Qty: 360 RF: 11 fluticasone propion-salmeterol [Advair Diskus] 500-50 mcg/dose blister with device 1 inh INHALATION BID Qty: 60 RF: 11 albuterol sulfate [Ventolin HFA] 90 mcg/actuation HFA aerosol inhaler 2 puff INHALATION Q4H PRN (Reason: Shortness Of Breath) Qty: 1 RF: 11 losartan 100 mg tablet 100 mg PO QAM RF: 0 cholecalciferol (vitamin D3) 25 mcg (1,000 unit) capsule 25 mcg PO QAM RF: 0 lorazepam 0.5 mg tablet 0.5 mg PO BID PRN (Reason: ANXIETY/SLEEP) RF: 0 levothyroxine 50 mcg tablet 25 mcg PO QAM RF: 0 ondansetron 4 mg tablet,disintegrating 4 mg PO Q6H PRN (Reason: nausea and vomiting) Qty: 14 RF: 0 Referrals Referrals: Joselito Harrington MD [Primary Care Provider] - Discharge Problem: Pulmonary emboli Qualifiers: Pulmonary embolism type: unspecified Chronicity: acute Acute cor pulmonale presence: without acute cor pulmonale Qualified Code(s): I26.99 - Other pulmonary embolism without acute cor pulmonale
[2021-08-25 11:17] LABS: Troponin I < 0.03 ng/ml (0-0.04)
[2021-08-25] MEDS ORDERED: ONDANSETRON INJ 2 MG/ML 2 ML VIAL ONE (11:20)
[2021-08-25 11:21] LABS: Partial Thromboplastin Ratio 0.8; Partial Thromboplastin Time 22.2 Seconds (21.0-31.0); Prothrombin Time 9.8 Seconds (9.0-12.0)
[2021-08-25 11:23] LABS: Alanine Aminotransferase 15 U/L (7-52); Albumin Globulin Ratio 1.1 (0.9-2); Albumin Level 3.6 gm/dl (3.4-5.0); Alkaline Phosphatase 124 U/L (34-104); Anion Gap 8 (3-11); Aspartate Aminotransferase 20 U/L (13-39); BUN Creatinine Ratio 15.1 (10-20); Bilirubin,Total 0.5 mg/dl (0.2-1.0); Blood Urea Nitrogen 13 mg/dl (6-23); Calcium 9.8 mg/dl (8.5-10.1); Carbon Dioxide 25 mmol/L (21-32); Chloride 106 mmol/L (98-107); Creatinine Clr Calc Pharmacy 66.3 ml/min; Est GFR (African American) 78.2 ml/min; Est GFR (Non-African American) 67.5 ml/min; Globulin 3.4 gm/dl (2.5-4.0); Glucose 113 mg/dl (70-99(Fasting)); Lipase 28 U/L (11-82); Potassium 3.6 mmol/L (3.5-5.1); Sodium 139 mmol/L (136-145)
--- NOTE | 2021-08-25 11:34 | XRay Report ---
SINGLE VIEW CHEST CLINICAL HISTORY: Atypical chest pain. FINDINGS: An AP, portable, upright chest radiograph is compared to study dated 06/04/2019. Correlation is made with chest CT dated 07/04/2017. The left subclavian central venous infusion port is unchanged in position. The heart is top normal for projection noting atherosclerotic calcification of the thora cic aorta. The pulmonary vasculature is noncongested. Chronic interstitial thickening is similar to p revious. There is bibasilar scarring/atelectasis. No airspace consolidation or large pleural effusion is identified. No pneumothorax is seen. The skeletal structures are osteopenic. The arthritic change is noted in the left shoulder. Bony thorax is grossly intact. IMPRESSION: No acute cardiopulmonary abnormality. ACT 112: Negative or not required by law. Electronically signed by: Taz Talavera M.D. 08/25/2021 11:33 AM
[2021-08-25] MEDS ORDERED: FAMOTIDINE 20MG IV PUSH 20 MG/5 ML SYR IV STA (11:37)
[2021-08-25] MEDS ORDERED: ENOXAPARIN 1 MG/KG SQ SCH (11:45)
[2021-08-25] MEDS ORDERED: ENOXAPARIN 100 MG/1ML SYR SQ STA (11:47)
[2021-08-25] MEDS ORDERED: OPTIRAY 320 125ml IV ONE (13:33)
--- NOTE | 2021-08-25 14:07 | CT Scan Report ---
CT ANGIOGRAPHY OF THE CHEST, PULMONARY EMBOLUS PROTOCOL CLINICAL HISTORY: Shortness of breath. Evaluate for pulmonary embolus. COMPARISON STUDY: Chest CT July 04, 2017. Chest radiograph performed earlier today. TECHNIQUE: Following IV administration of 97 mL of Optiray, helical axial images of the chest were ob tained utilizing the pulmonary embolus protocol. Maximal intensity projections and sagittal and josh nal reformats were viewed on an independent 3D workstation. IV contrast was administered without com plication. Automated exposure control was utilized for the study. A dose lowering technique was uti lized adhering to the principles of ALARA. CT DOSE: 670.64 mGy.cm FINDINGS: Left subclavian Atlify-p-Eooh is in place. No enlarged axillary, mediastinal or hilar lymp h nodes are present. Note is made of several lobar and segmental right-sided pulmonary emboli. No yazan tral pulmonary embolus is present. There is no CT evidence for right heart strain. Mild cardiomegaly is noted. No pericardial effusion. Small hiatal hernia is present. There is no pulmonary infarct. The re are no suspicious pulmonary nodules. No acute fracture or suspicious lesion is identified within v isualized skeletal structures. IMPRESSION: 1. Several lobar and segmental right-sided pulmonary emboli. 2. No pulmonary infarct. 3. Small hiatal hernia. ACT 112: Negative or not required by law. Electronically signed by: Trung Milligan M.D. 08/25/2021 2:06 PM
--- NOTE | 2021-08-25 14:52 | History & Physical Report ---
Date of Service August 25, 2021 Assessment & Plan (1) Pulmonary emboli: Plan: At risk of larger thrombus travelling distally due to large IVC thrombus seen Admit to med/tele. Lovenox 100mg SQ given in ER, will continue this and switch to DOAC on discharge - will need lifelong anticoagulation. 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 (2) Parastomal hernia: Plan: Follow up with GI as outpatient. No acute problem. (3) Colostomy in place: Plan: Liquid output currently (4) Insomnia: Plan: Continue lorazepam PRN (5) Anxiety: Plan: Continue lorazepam PRN (6) Autonomic dysfunction: Plan: Falls risk (7) GERD (gastroesophageal reflux disease): Plan: Continue pantoprazole 40mg PO daily (8) HTN (hypertension): Plan: Continue losartan 100mg PO daily (9) Hypothyroidism: Plan: TSH 0.13 in August. Levothyroxine reduced to 25mcg PO daily at that time. Continue this dose with routine outpatient follow up. (10) Common variable immunodeficiency: Plan: [id number] IgG as outpatient Plan: VTE Prophylaxis - Lovenox Diet - low fiber Disposition - admit to med/tele Admission and Anticipated Discharge Date Admission Date: Aug 25, 2021 History of Present Illness Chief Complaint: Abnormal CT Primary Care Provider: Joselito Harrington MD Cony Cruz is a 70 year old female admission due to incidental IVC thrombus noted on outpatient CT. She underwent CT A/P with IV contrast earlier today showing a large thrombus within the right common iliac vein extending into the IVC with possible small pulmonary emboli in right lower lobe. CT was ordered by gastroenterology due to stool output changes from her colostomy with known parastomal hernia. CT for PE confirmed several lobar and segmental right sided pulmonary emboli. She notes a history of DVT and pulmonary emboli in October 2015. Diagnosed when she had asthma exacerbation with shortness of breath. She reports this was treated with Eliquis for 6 months. No recent d-dimers on EHR. She reports left leg swelling more than right chronically for > 10 years. She underwent right total knee arthroplasty in 2010 - no DVTs following this. No recent shortness of breath or chest pain. Tiredness increased in last 10 days - had been putting this down to stress. Last surgery in December 2020 - parastomal hernia repair. No long haul journeys. She reports no abdominal pain currently - occasional cramps. Colostomy output is irregular - none since Monday. On Monday she had 6 bags full. This is usual for her with little or no output for a few days, then once a week will have a large output. Ongoing chronic nausea for which she takes ondansetron every night; no acute change. In the ER she was started on Lovenox for IVC thrombus and pulmonary emboli. She was referred to medicine for admission and ongoing management of this. Allergies Allergy/AdvReac Type Severity Reaction Status Date / Time levofloxacin Allergy Severe Anaphylaxis Verified 08/25/21 15:48 aspirin Allergy Intermediate HIVES Verified 08/25/21 15:48 house dust Allergy Intermediate ASTHMA Verified 08/25/21 15:48 TRIGGER pollen extracts Allergy Intermediate SHORTNESS Verified 08/25/21 15:48 OF BREATH montelukast [From Singulair] Allergy Unknown Unknown Verified 08/25/21 15:48 Inhaled Anesthetics (Halogen AdvReac Severe stops Verified 08/25/21 15:48 Based) breathing erythromycin base AdvReac Intermediate NAUSEA, Verified 08/25/21 15:48 DRY HEAVES famotidine [From Pepcid] AdvReac Intermediate HALLUCINATI Verified 08/25/21 15:51 ONS fluticasone AdvReac Mild DIZZINESS Verified 08/25/21 15:48 Home Medications Medication Instructions Recorded Confirmed Type albuterol sulfate 2.5 mg INHALATION Q6H PRN #360 ml 07/24/19 08/25/21 Rx cholecalciferol (vitamin D3) 25 25 mcg PO QAM 05/25/20 08/25/21 History mcg (1,000 unit) capsule losartan 100 mg tablet 100 mg PO QAM 05/25/20 08/25/21 History albuterol sulfate 90 mcg/actuation 2 puff INHALATION Q4H PRN #1 06/22/20 08/25/21 Rx aerosol inhaler (Ventolin HFA) inhaler levothyroxine 50 mcg tablet 25 mcg PO QAM 10/31/20 08/25/21 History ondansetron 4 mg disintegrating 4 mg PO Q6H PRN #14 tab 11/01/20 08/25/21 Rx tablet fluticasone 500 mcg-salmeterol 50 1 inh INHALATION BID #60 ea 01/29/21 08/25/21 Rx mcg/dose blistr powdr for inhalation (Advair Diskus) furosemide 20 mg tablet 20 mg PO DAILY PRN 04/01/21 08/25/21 History pantoprazole 40 mg tablet,delayed 40 mg PO QAM #90 tab 06/21/21 08/25/21 Rx release simvastatin 20 mg tablet 20 mg PO HS #90 tab 07/12/21 08/25/21 Rx immune glob,gamma (IgG) 10 30 g IV Q4WK 30 Days #300 ml 08/02/21 08/25/21 Rx %-gly-IgA over 50 mcg/mL injection solution (Gammagard Liquid) folic acid 1 mg tablet 1 mg PO HS #90 tab 08/09/21 08/25/21 Rx lorazepam 0.5 mg tablet 0.5 mg PO BID PRN 08/25/21 08/25/21 History Past Med/Surg History Medical History (Updated 08/25/21 @ 17:13 by Ronen Truong MD) Asthma Autonomic dysfunction Colostomy in place Common variable immunodeficiency Diverticulosis Dyslipidemia GERD (gastroesophageal reflux disease) HTN (hypertension) Hx of deep venous thrombosis Hx pulmonary embolism Hypothyroidism IBS (irritable bowel syndrome) Pneumonia Respiratory failure with hypoxia Surgical History H/O shoulder surgery H/O vaginal surgery (~1999) Correction History of breast biopsy (2006) History of total knee arthroplasty S/P partial colectomy (~07/2019) S/P vaginal hysterectomy (~1989) Status post right rotator cuff repair (2004) Family History Grandmother Leukemia Stroke Mother Stroke Other Family history non-contributory Hypertension Tuberculosis Social History Smoking Status: Never smoker Second Hand Exposure: No; Do You Dip or Chew Tobacco: No; Tobacco Cessation Education Requested by Patient: No Hx Alcohol Use: No Hx Substance Use: No Preferred Language: Qatari Communication Ability: Effective Basket Turner Required: No Beliefs That Will Affect Care: None marital status: Current Living Situation: Spouse Other Information That Helps Us Care for You: No Feels Safe at Home: Yes Safety Concerns: Feels Safe At This Time Assistive Devices: Cane and Glasses Review of Systems Review of Systems: All systems reviewed & are unremarkable except as noted in HPI & below Physical Exam Constitutional: WD/WN, vitals as above Eyes: + anicteric sclerae; normal pupil size ENMT: external ear and nose normal, oropharynx normal Neck: trachea midline, no thyromegaly Respiratory: normal respiratory effort, lungs clear to auscultation Cardiovascular: Rate/Rhythm: regular rate and regular rhythm Heart Sounds: no murmur Extremities: normal capillary refill and + pedal edema (left > right pre-tibial 1+); no calf tenderness Gastrointestinal (Abdomen): Inspection/Auscultation: normal bowel sounds Percussion/Palpation: abdomen soft; abdomen nontender, no guarding and abdomen not rigid Colostomy pink and healthy. No surrounding erythema around colostomy bag. Musculoskeletal: no cyanosis or clubbing, extremities motor strength 5/5 Skin: no rashes, warm and dry Neurologic: moves all extremities and awake; not confused Results & Data Results & Data ([facility]) Vital Signs (Past 12 Hours) Vital Signs Temp Pulse Resp BP Pulse Ox 08/25/21 14:10 84 18 95 08/25/21 14:00 93 H 20 95 08/25/21 13:50 86 18 184/94 H 95 08/25/21 13:48 86 18 96 08/25/21 13:20 89 23 96 08/25/21 13:10 85 13 95 08/25/21 13:00 84 14 96 08/25/21 12:50 84 16 95 08/25/21 12:40 84 18 98 08/25/21 12:30 85 21 96 08/25/21 12:24 92 H 18 97 08/25/21 12:08 84 18 167/98 H 96 08/25/21 12:00 88 17 167/98 H 97 08/25/21 11:50 90 18 96 08/25/21 11:40 89 18 96 08/25/21 11:30 91 H 18 96 08/25/21 11:20 89 17 95 08/25/21 11:10 90 16 96 08/25/21 11:04 90 15 97 08/25/21 11:00 94 H 14 96 08/25/21 10:50 91 H 17 96 08/25/21 10:40 97 H 18 96 08/25/21 10:17 36.3 C L 102 H 20 192/91 H 98 Laboratory Results Abnormal lab results 08/25/21 08/25/21 Range/Units 10:35 10:35 RDW Std Deviation 51.7 H (36.4-46.3) fL RDW Coeff of Mandeep 15.4 H (11.5-14.5) % MPV 11.6 H (7.4-10.4) fL Neut # (Auto) 6.81 H (1.4-6.5) K/uL [place] # (Auto) 0.70 H (0.11-0.59) K/uL Immature Gran # (Auto) 0.03 H (0.00-0.02) K/uL Glucose 113 H (70-99(Fasting)) mg/dl Phosphorus 2.0 L (2.5-4.9) mg/dl Alkaline Phosphatase 124 H (34-104) U/L Diagnostic Findings SINGLE VIEW CHEST CLINICAL HISTORY: Atypical chest pain. FINDINGS: An AP, portable, upright chest radiograph is compared to study dated 06/04/2019. Correlation is made with chest CT dated 07/04/2017. The left subclavian central venous infusion port is unchanged in position. The heart is top normal for projection noting atherosclerotic calcification of the thoracic aorta. The pulmonary vasculature is noncongested. Chronic interstitial thickening is similar to previous. There is bibasilar scarring/atelectasis. No airspace consolidation or large pleural effusion is identified. No pneumothorax is seen. The skeletal structures are osteopenic. The arthritic change is noted in the left shoulder. Bony thorax is grossly intact. IMPRESSION: No acute cardiopulmonary abnormality. CT ANGIOGRAPHY OF THE CHEST, PULMONARY EMBOLUS PROTOCOL CLINICAL HISTORY: Shortness of breath. Evaluate for pulmonary embolus. COMPARISON STUDY: Chest CT July 04, 2017. Chest radiograph performed earlier today. TECHNIQUE: Following IV administration of 97 mL of Optiray, helical axial images of the chest were obtained utilizing the pulmonary embolus protocol. Maximal intensity projections and sagittal and coronal reformats were viewed on an independent 3D workstation. IV contrast was administered without complication. Automated exposure control was utilized for the study. A dose lowering technique was utilized adhering to the principles of ALARA. CT DOSE: 670.64 mGy.cm FINDINGS: Left subclavian Woktcb-p-Vqgc is in place. No enlarged axillary, mediastinal or hilar lymph nodes are present. Note is made of several lobar and segmental right-sided pulmonary emboli. No central pulmonary embolus is present. There is no CT evidence for right heart strain. Mild cardiomegaly is noted. No pericardial effusion. Small hiatal hernia is present. There is no pulmonary infarct. There are no suspicious pulmonary nodules. No acute fracture or suspicious lesion is identified within visualized skeletal structures. IMPRESSION: 1. Several lobar and segmental right-sided pulmonary emboli. 2. No pulmonary infarct. 3. Small hiatal hernia. CT OF THE ABDOMEN AND PELVIS WITH CONTRAST CLINICAL HISTORY: Change in bowel habits. Parastomal hernia. COMPARISON STUDY: CT of the abdomen and pelvis and KUB January 19, 2021. TECHNIQUE: Following IV administration of 94 mL of Optiray, axial images of the abdomen and pelvis were obtained from the lung bases to the proximal femurs. Images were reviewed in the axial, sagittal, and coronal planes. IV contrast was administered without complication. Automated exposure control was utilized for the study. A dose lowering technique was utilized adhering to the principles of ALARA. CT DOSE: 940.13 mGy.cm FINDINGS: There are possible small right lower lobe segmental and subsegmental pulmonary emboli, suboptimally assessed on this exam. Small hiatal hernia is present. No pneumatosis, free air or portal venous gas is present. There is hepatic steatosis. The spleen, adrenal glands and pancreas are unremarkable. Num erous bilateral renal lesions are noted. The larger lesions measure water attenuation reflect cysts. There are numerous subcentimeter renal lesions which are too small to characterize. No hydronephrosis. No biliary or pancreatic ductal dilatation is noted. Note is made of a large thrombus within the right common iliac vein extending into the IVC. There is no evidence for a bowel obstruction. There are multiple fat containing ventral hernias. Note is made of a left abdominal parastomal hernia which contains a portion of the colon. This is decreased in size since prior CT of January 19, 2021. The stomach no longer extends through the defect. There is subtle stranding within and adjacent to the hernia sac. Colonic diverticulosis is noted without evidence for acute diverticulitis. In addition, there is a lower abdominal ventral hernia which contains multiple small bowel loops without resultant bowel obstruction. There is evidence for pelvic floor relaxation. IMPRESSION: 1. Large thrombus within the right common iliac vein extending into the IVC. Possible small pulmonary emboli within the right lower lobe. Findings discussed with Lauren Orellana at time of dictation. 2. Parastomal hernia which has decreased in size since prior examination. Mild nonspecific stranding within and adjacent to the hernia sac. Redemonstration of a lower abdominal ventral hernia which contains multiple small bowel loops without resultant bowel obstruction. 3. Colonic diverticulosis. No evidence for acute diverticulitis. Medications Administered ER Medications Given: Ondansetron 4mg IV Famotidine 20mg IV Lovenox 100mg SQ NSS @ 125 ml/hr ECG Indication: SOB/dyspnea Rate (beats per minute): 99 Rhythm: normal sinus Findings: no acute ischemic change Comparison ECG Date: from (May 25, 2020) Change: no significant change Code Status & VTE Plan Code Status Full VTE Prophylaxis Plan VTE Prophylaxis will be ordered: Yes PG Care Time/CCT Total # of Minutes Spent Total Time Spent with Patient: Total time spent is greater than 50% in coordination of care (as documented) at patient's floor/unit and/or counseling patient: Coding Level of Care Code 80615 Initial Inpt Care Lvl 2 Diagnoses Insomnia G47.00 Anxiety F41.9 Parastomal hernia K43.5 Obstruction and gangrene presence: without obstruction or gangrene Colostomy in place Z93.3 Autonomic dysfunction G90.9 GERD (gastroesophageal reflux disease) K21.9 HTN (hypertension) I10 Hypothyroidism E03.9 Common variable immunodeficiency D83.9 Pulmonary emboli I26.99 (1) Parastomal hernia Obstruction and gangrene presence: without obstruction or gangrene Qualified Code(s): K43.5 - Parastomal hernia without obstruction or gangrene
--- NOTE | 2021-08-25 17:03 | Ultrasound Report ---
ULTRASOUND BILATERAL LOWER EXTREMITY VENOUS CLINICAL HISTORY: IVC thrombus. COMPARISON STUDY: Left lower extremity venous ultrasound dated 10/31/2018 TECHNIQUE: Real-time, grayscale, and color Doppler sonography of the deep veins of the right and left lower extremity was performed from the inguinal crease to the calf. Compression and augmentation wer e utilized. FINDINGS: Right lower extremity: There is deep venous thrombosis in the right calf within one of the posterior tibial veins. The remaining calf vessels are patent. The common femoral, superficial femoral, and pop liteal veins are patent and normally compressible. The greater saphenous vein and the profunda femori s vein at the junction with the common femoral vein are clear. Left lower extremity: There is no sonographic evidence of deep venous thrombosis in the left lower ex tremity. The common femoral, superficial femoral, and popliteal veins are patent and normally gina sible. The greater saphenous vein and the profunda femoris vein at the junction with the common femor al vein are clear. The visualized calf veins are patent. IMPRESSION: 1. There is deep venous thrombosis identified in the right calf within 1 of the posterior tibial vein s. 2. No above knee deep venous thrombosis is seen in the right lower extremity. 3. There is no sonographic evidence of deep venous thrombosis in the left lower extremity. ACT 112: Negative or not required by law. Electronically signed by: Taz Talavera M.D. 08/25/2021 5:02 PM
[2021-08-25] MEDS ORDERED: LORazepam 0.5 MG TAB PO PRN (17:38)
[2021-08-25] MEDS ORDERED: ONDANSETRON 4 MG OD TAB PO PRN (17:38)
[2021-08-25] MEDS ORDERED: ACETAMINOPHEN 325 MG TAB PO PRN (17:38)
--- NOTE | 2021-08-25 17:44 | Electrocardiogram Report ---
Test Reason : Blood Pressure : / mmHG Vent. Rate : 099 BPM Atrial Rate : 099 BPM P-R Int : 188 ms QRS Dur : 084 ms QT Int : 360 ms P-R-T Axes : 053 -12 061 degrees QTc Int : 462 ms Normal sinus rhythm Minimal voltage criteria for LVH, may be normal variant possible Inferior infarct , age undetermined Abnormal ECG When compared with ECG of 25-MAY-2020 09:42, QT has lengthened Confirmed by Mika Yeung ([id number]) on 08/25/2021 5:43:56 PM Referred By: REFERRED SELF Confirmed By:Artis Yeung
[2021-08-25] MEDS ORDERED: FOLIC ACID 1 MG TAB PO SCH (21:00)
[2021-08-25] MEDS ORDERED: SIMVASTATIN 20 MG TAB PO SCH (21:00)
[2021-08-26] MEDS ORDERED: CALCIUM CARBONATE 500 MG CHEWABLE TAB PO PRN (00:01)
[2021-08-26] MEDS: ENOXAPARIN 100 MG/1ML SYR SQ SCH ×2 (00:08→12:30)
[2021-08-26] MEDS ORDERED: LEVOTHYROXINE SODIUM 25 MCG TABLET PO SCH (06:30)
[2021-08-26 06:43] LABS: Basophils # (auto) 0.03 K/uL (0-0.2); Basophils % (auto) 0.3 %; Eosinophils # (auto) 0.45 K/uL (0-0.5); Eosinophils % (auto) 5.1 %; Hematocrit (blood only) 39.3 % (37-47); Hemoglobin 12.7 g/dL (12.0-16.0); Immature Granulocytes # (auto) 0.01 K/uL (0.00-0.02); Immature Granulocytes % (auto) 0.1 %; Lymphocytes # (auto) 2.75 K/uL (1.2-3.4); Lymphocytes % (auto) 30.9 %; Mean Corpuscular Hemoglobin 29.8 pg (25-34); Mean Corpuscular Hgb Conc 32.3 g/dL (32-36); Mean Corpuscular Volume 92.3 fL (80-100); Mean Platelet Volume 11.3 fL (7.4-10.4); Monocytes # (auto) 0.65 K/uL (0.11-0.59); Monocytes % (auto) 7.3 %; Neutrophils # (auto) 5.01 K/uL (1.4-6.5); Neutrophils % (auto) 56.3 %; Platelet Count 196 K/uL (130-400); RDW Coefficient of Variation 15.7 % (11.5-14.5); RDW Standard Deviation 52.7 fL (36.4-46.3); Red Blood Count 4.26 M/uL (4.2-5.4)
[2021-08-26 07:10] LABS: BUN Creatinine Ratio 11.8 (10-20); Calcium 10.2 mg/dl (8.5-10.1); Creatinine Clr Calc Pharmacy 61.2 ml/min; Est GFR (African American) 71.2 ml/min; Est GFR (Non-African American) 61.4 ml/min; Potassium 3.8 mmol/L (3.5-5.1)
[2021-08-26] MEDS ORDERED: LOSARTAN POTASSIUM 50 MG TAB PO SCH (09:00)
[2021-08-26] MEDS ORDERED: FLUTICASONE/VILANTEROL 200/25MCG 14 PUFFS/INHALER INH SCH (09:00)
[2021-08-26] MEDS ORDERED: PANTOprazole 40 MG TAB PO SCH (09:00)
[2021-08-26] MEDS ORDERED: CHOLECALCIFEROL 1,000 UNITS 25 MCG TAB PO SCH (09:00)
--- NOTE | 2021-08-26 15:57 | Discharge Summary ---
Date of Service date of admission - August 25, 2021 date of discharge - August 26, 2021 Admission HPI Per Admitting Provider Cony Cruz is a 70 year old female admission due to incidental IVC thrombus noted on outpatient CT. She underwent CT A/P with IV contrast earlier today saroj wing a large thrombus within the right common iliac vein extending into the IVC with possible small pulmonary emboli in right lower lobe. CT was ordered by gastroenterology due to stool output changes from her colostomy with known parastomal hernia. CT for PE confirmed several lobar and segmental right sided pulmonary emboli. She notes a history of DVT and pulmonary emboli in October 2015. Diagnosed when she had asthma exacerbation with shortness of breath. She reports this was treated with Eliquis for 6 months. No recent d-dimers on EHR. She reports left leg swelling more than right chronically for > 10 years. She underwent right total knee arthroplasty in 2010 - no DVTs following this. No recent shortness of breath or chest pain. Tiredness increased in last 10 days - had been putting this down to stress. Last surgery in December 2020 - parastomal hernia repair. No long haul journeys. She reports no abdominal pain currently - occasional cramps. Colostomy output is irregular - none since Monday. On Monday she had 6 bags full. This is usual for her with little or no output for a few days, then once a week will have a large output. Ongoing chronic nausea for which she takes ondansetron every night; no acute change. In the ER she was started on Lovenox for IVC thrombus and pulmonary emboli. She was referred to medicine for admission and ongoing management of this. Principal Diagnosis 1. pulmonary emboli 2. IVC thrombus 3. RLE DVT Discharge Exam gen - NAD, obese neck - no JVD mouth - MMM heart - RRR, s1 s2 lungs - CTA b/l abd - soft, NT, ostomy in place with stool ext - pulses 2+ b/l Discharge Data Allergies Allergy/AdvReac Type Severity Reaction Status Date / Time levofloxacin Allergy Severe Anaphylaxis Verified 09/01/21 14:43 aspirin Allergy Intermediate HIVES Verified 09/01/21 14:43 house dust Allergy Intermediate ASTHMA Verified 09/01/21 14:43 TRIGGER pollen extracts Allergy Intermediate SHORTNESS Verified 09/01/21 14:43 OF BREATH montelukast [From Singulair] Allergy Unknown Unknown Verified 09/01/21 14:43 Inhaled Anesthetics (Halogen AdvReac Severe stops Verified 09/01/21 14:43 Based) breathing erythromycin base AdvReac Intermediate NAUSEA, Verified 09/01/21 14:43 DRY HEAVES famotidine [From Pepcid] AdvReac Intermediate HALLUCINATI Verified 09/01/21 14:43 ONS fluticasone AdvReac Mild DIZZINESS Verified 09/01/21 14:43 Ordered Studies Chest CTA 08/25/21 10:52 CT ANGIOGRAPHY OF THE CHEST, PULMONARY EMBOLUS PROTOCOL CLINICAL HISTORY: Shortness of breath. Evaluate for pulmonary embolus. COMPARISON STUDY: Chest CT July 04, 2017. Chest radiograph performed earlier today. TECHNIQUE: Following IV administration of 97 mL of Optiray, helical axial images of the chest were obtained utilizing the pulmonary embolus protocol. Maximal intensity projections and sagittal and coronal reformats were viewed on an independent 3D workstation. IV contrast was administered without complication. Automated exposure control was utilized for the study. A dose lowering technique was utilized adhering to the principles of ALARA. CT DOSE: 670.64 mGy.cm FINDINGS: Left subclavian [id number] is in place. No enlarged axillary, mediastinal or hilar lymph nodes are present. Note is made of several lobar and segmental right-sided pulmonary emboli. No central pulmonary embolus is present. There is no CT evidence for right heart strain. Mild cardiomegaly is noted. No pericardial effusion. Small hiatal hernia is present. There is no pulmonary infarct. There are no suspicious pulmonary nodules. No acute fracture or suspicious lesion is identified within visualized skeletal structures. IMPRESSION: 1. Several lobar and segmental right-sided pulmonary emboli. 2. No pulmonary infarct. 3. Small hiatal hernia. ACT 112: Negative or not required by law. Electronically signed by: Trung Milligan M.D. 08/25/2021 2:06 PM Chest X-Ray 08/25/21 10:53 SINGLE VIEW CHEST CLINICAL HISTORY: Atypical chest pain. FINDINGS: An AP, portable, upright chest radiograph is compared to study dated 06/04/2019. Correlation is made with chest CT dated 07/04/2017. The left subclavian central venous infusion port is unchanged in position. The heart is top normal for projection noting atherosclerotic calcification of the thoracic aorta. The pulmonary vasculature is noncongested. Chronic interstitial thickening is similar to previous. There is bibasilar scarring/atelectasis. No airspace consolidation or large pleural effusion is identified. No pneumothorax is seen. The skeletal structures are osteopenic. The arthritic change is noted in the left shoulder. Bony thorax is grossly intact. IMPRESSION: No acute cardiopulmonary abnormality. ACT 112: Negative or not required by law. Electronically signed by: Taz Talavera M.D. 08/25/2021 11:33 AM Venous Doppler Study 08/25/21 15:22 ULTRASOUND BILATERAL LOWER EXTREMITY VENOUS CLINICAL HISTORY: IVC thrombus. COMPARISON STUDY: Left lower extremity venous ultrasound dated 10/31/2018 TECHNIQUE: Real-time, grayscale, and color Doppler sonography of the deep veins of the right and left lower extremity was performed from the inguinal crease to the calf. Compression and augmentation were utilized. FINDINGS: Right lower extremity: There is deep venous thrombosis in the right calf within one of the posterior tibial veins. The remaining calf vessels are patent. The common femoral, superficial femoral, and popliteal veins are patent and normally compressible. The greater saphenous vein and the profunda femoris vein at the junction with the common femoral vein are clear. Left lower extremity: There is no sonographic evidence of deep venous thrombosis in the left lower extremity. The common femoral, superficial femoral, and popliteal veins are patent and normally compressible. The greater saphenous vein and the profunda femoris vein at the junction with the common femoral vein are clear. The visualized calf veins are patent. IMPRESSION: 1. There is deep venous thrombosis identified in the right calf within 1 of the posterior tibial veins. 2. No above knee deep venous thrombosis is seen in the right lower extremity. 3. There is no sonographic evidence of deep venous thrombosis in the left lower extremity. ACT 112: Negative or not required by law. Electronically signed by: Taz Talavera M.D. 08/25/2021 5:[address] abd/pelvis (performed just prior to admission): IMPRESSION: 1. Large thrombus within the right common iliac vein extending into the IVC. Possible small pulmonary emboli within the right lower lobe. Findings discussed with Lauren Orellana at time of dictation. 2. Parastomal hernia which has decreased in size since prior examination. Mild nonspecific stranding within and adjacent to the hernia sac. Redemonstration of a lower abdominal ventral hernia which contains multiple small bowel loops without resultant bowel obstruction. 3. Colonic diverticulosis. No evidence for acute diverticulitis. Hospital Course (1) Pulmonary emboli: The patient had incidentally found IVC thrombus, right iliac vein thrombus, and right-sided PEs on an outpatient CT of the abdomen/pelvis (which was done due to recent GI symptoms). Immediately following this discovery she was admitted to the hospital and started on lovenox 1mg/kg BID. She had b ilateral lower extremity dopplers which showed evidence of RLE calf DVTs. A hypercoagulable work-up/genetic work-up for her unprovoked VTE event was dispatched. Following admission she remained hemodynamically stable. She had little in the way of pulmonary symptoms. She never had evidence of right heart strain. Given the severity of this unprovoked VTE event it was decided that she should remain on lovenox 1mg/kg BID at least for the first few weeks following discharge. Following such oral anticoagulation may be started. A referral has been made to Dr Arnulfo Hardwick in the [facility] for management of her VTE. Dr Hardwick can also provide counseling if any of her hypercoagulable labs/genetic labs are positive. I did advise Ms Cruz that if her hypercoagulable work-up is negative her PCP may recommend other testing to ensure no occult cancer is present, etc. (2) Acute deep vein thrombosis (DVT) of inferior vena cava: (3) Acute deep vein thrombosis of right iliac vein: (4) Right leg DVT: (5) Parastomal hernia: Follow up with GI as outpatient. No acute issues while here. (6) Colostomy in place: No issue while here. (7) Anxiety: Continue lorazepam PRN (8) Autonomic dysfunction: (9) GERD (gastroesophageal reflux disease): Continue pantoprazole 40mg PO daily (10) HTN (hypertension): Continue losartan 100mg PO daily (11) Hypothyroidism: TSH 0.13 in August 2020. Levothyroxine reduced to 25mcg PO daily at that time. Continue this dose with routine outpatient follow up. (12) Common variable immunodeficiency: [id number] Immune Globulin as outpatient Total Time Total Time Spent Total Time Spent (In Minutes): 45 Discharge Plan Discharge Items Patient Disposition: Home - Self-Care Reason For Visit: Deep Venous Thrombosis Discharge Diagnosis: 1. Pulmonary emboli 2. Right leg (calf) DVT 3. Deep venous thrombosis of the right iliac vein and a small portion of the IVC (inferior vena cava) Activity: As commented below Activity Comment: light activities for the next 5-7 days Non-emergency contact: Primary Care Provider and Specialist Call non-emergency contact if: you have any medication questions and your symptoms worsen Follow-up/Referrals: Joselito Harrington MD [Primary Care Provider] - (1-2 weeks) Nora Hardwick MD, PhD [Pathologist] - 08/30/21 1:00 pm ([facility]. ) Diet: Low Fiber Addtl Attending Provider Instructions: Mrs Cruz, On 08/25/21 you had undergone an outpatient CT of your abdomen and pelvis. Incidentally a DVT blood clot was found in one of the veins of your lower abdomen/pelvis (right iliac vein). Some of the clot extended into the bottom portion of your inferior vena cava (IVC). In the ER you underwent ultrasounds of your legs. This showed a small DVT blood clot in the calf of your right leg. The left leg was free of clot. Additionally a CT scan of your chest was performed and this showed pulmonary emboli blood clots in your right lung. Fortunately your oxygen levels at rest and with walking were normal. Also, your vital signs were stable while hospitalized. The exact cause of your blood clots is uncertain. You have had no recent travel, COVID infection, surgery over the last few weeks, prolonged immobility, etc. We did not see cancer on any of the CT scans. To rule out hereditary causes of your blood clots we sent out blood work to check for genetic conditions that can increase someone's chances of DVTs. We started you on lovenox shots twice daily. This will be your blood thinner as you transition home. See handout. Recommendations - 1. You are technically due for your next lovenox shot at approximately 1230am tonight. However, you can give yourself the shot a little early - perhaps about 1130pm. 2. The shots should be spaced about 12 hours apart. Feel free to gradually adjust the timing of your shots so that they are convenient for you. 3. See additional information below regarding blood thinners. 4. See Dr Hardwick THIS MONDAY - 08/30/21 - to discuss your DVTs, lovenox, future use of oral blood thinners, etc. 5. Please speak to Dr Harrington about any additional tests he may want you to have seeing that there wasn't an obvious cause of this blood clot event. Follow-up - see separate section Return to [facility] if - * you have worsening shortness of breath * you have bleeding from any location as listed below * you have chest pains * any other concerns It was our pleasure to care for you! -Dr Keita Addtl Sensory Scientist Provider Instructions: Blood Thinner (anticoagulation) Medication Instructions: Your DVT/PE condition is typically treated with an anticoagulant. Anticoagulants will thin your blood to help prevent new clots. * You should take your medication exactly as directed. * Never skip a dose. * Never take a double dose. If you miss a dose, take it as soon as you remember. Call your Primary Care doctor if you experience any of the following: * Swelling or Pain in your leg * Sudden, continuous pain deep in a muscle * Pain that worsens when you are active or when you stand still for a long time * Chest Pain * Sudden Shortness of Breath * Rapid or pounding heart beat * Fainting * Dizziness * Cough with blood or bloody sputum * Sweating more than normal * Bruises * Heavy or uncontrolled bleeding * Blood in your urine, stool or vomit * Black or tarry stools * Heavy nose bleeding Caring for Your Self at Home: * Avoid sitting, standing or lying down for long periods without moving your legs and feet * When traveling by car, stop to get out and move around at least once every 3 hours * On long airplane, train or bus rides, get up and move around when possible * If you can't get up, wiggle your toes and tighten your calves to keep your blood moving Follow Up: It is important for you to keep your follow up appointments with your medical provider. Pending Studies at Discharge: Yes Studies:: labs to exclude genetic/inherited conditions that can lead to blood clot formation Stand-Alone Forms: My [facility] [employer], Smoking Cessation Medications and DC Order Prescriptions: Continued pantoprazole 40 mg tablet,delayed release (DR/EC) 40 mg PO QAM Qty: 90 RF: 3 simvastatin 20 mg tablet 20 mg PO HS Qty: 90 RF: 3 Gammagard Liquid 10 % solution 30 g IV Q4WK 30 Days Qty: 300 RF: 11 folic acid 1 mg tablet 1 mg PO HS Qty: 90 RF: 3 furosemide 20 mg tablet 20 mg PO DAILY PRN (Reason: Edema) RF: 0 albuterol sulfate 2.5 mg /3 mL (0.083 %) solution for nebulization 2.5 mg inhalation Q6H PRN (Reason: Shortness Of Breath) Qty: 360 RF: 11 fluticasone propion-salmeterol [Advair Diskus] 500-50 mcg/dose blister with device 1 inh INHALATION BID Qty: 60 RF: 11 albuterol sulfate [Ventolin HFA] 90 mcg/actuation HFA aerosol inhaler 2 puff INHALATION Q4H PRN (Reason: Shortness Of Breath) Qty: 1 RF: 11 losartan 100 mg tablet 100 mg PO QAM RF: 0 cholecalciferol (vitamin D3) 25 mcg (1,000 unit) capsule 25 mcg PO QAM RF: 0 lorazepam 0.5 mg tablet 0.5 mg PO BID PRN (Reason: ANXIETY/SLEEP) RF: 0 levothyroxine 50 mcg tablet 25 mcg PO QAM RF: 0 ondansetron 4 mg tablet,disintegrating 4 mg PO Q6H PRN (Reason: nausea and vomiting) Qty: 14 RF: 0 No Action enoxaparin 100 mg/mL syringe 100 mg subcut Q12H Qty: 20 RF: 1 Discharge Orders: Discharge Order (Routine); Ordered 08/26/21 Ordered By: Adán Harvey/Other Patient Handouts: Lovenox Prefilled Syringe 100 mg/mL, Pulmonary Embolism, ED Deep Vein Thrombosis (DVT) Admission Data Admit Date/Time: 08/25/21 15:17 Attending Provider: Adán Keita Admit Provider: Adán Talley Primary Care Provider: Joselito Harrington Other Providers: Adán Talley Other Interventions: Discharge Summary Assessment (RN) Last Done: 08/26/21 16:15 Coding Level of Care Code D/C DAY MANAGEMENT >30 MINS Diagnoses Pulmonary emboli I26.99 Parastomal hernia K43.5 Obstruction and gangrene presence: without obstruction or gangrene Colostomy in place Z93.3 Anxiety F41.9 Autonomic dysfunction G90.9 GERD (gastroesophageal reflux disease) K21.9 HTN (hypertension) I10 Hypothyroidism E03.9 Common variable immunodeficiency D83.9 Acute deep vein thrombosis (DVT) of inferior vena cava I82.220 Acute deep vein thrombosis of right iliac vein I82.421 Right leg DVT I82.401
[2021-08-29 01:43] LABS: Anti Cardiolipin Ab IgG <2.0 GPL-U/mL; Anti Cardiolipin Ab IgM <2.0 MPL-U/mL; Anti-Thrombin III Activity 113 % normal (80-135); B2 Glycoprotein IgG <2.0 U/mL (<20.0); B2 Glycoprotein IgM <2.0 U/mL (<20.0); PTT LA Screen 31 sec (<=40); Protein S Functional(Activity) 63 % (60-140)
[2021-09-02 23:37] LABS: Factor 5 Mutation NEGATIVE
== END 2021-08-26 16:54 | disposition home or self-care (01) | DRG 175 ==
LOC: ED 10:10 → SUATTDRO 15:17 → EDINP 15:17 → 2E 17:38
DX: Z79.51 Long term (current) use of inhaled steroids; I10 Essential (primary) hypertension; E03.9 Hypothyroidism, unspecified; K21.9 Gastro-esophageal reflux disease without esophagitis; Z88.8 Allergy status to other drugs, medicaments and biological substances; K57.30 Diverticulosis of large intestine without perforation or abscess without bleeding; Z79.899 Other long term (current) drug therapy; Z93.3 Colostomy status; G47.00 Insomnia, unspecified; G90.9 Disorder of the autonomic nervous system, unspecified; I82.220 Acute embolism and thrombosis of inferior vena cava; Z79.890 Hormone replacement therapy; K43.9 Ventral hernia without obstruction or gangrene; F41.9 Anxiety disorder, unspecified; I26.99 Other pulmonary embolism without acute cor pulmonale; K43.5 Parastomal hernia without obstruction or gangrene; Z88.6 Allergy status to analgesic agent; R19.4 Change in bowel habit; I82.421 Acute embolism and thrombosis of right iliac vein; Z88.1 Allergy status to other antibiotic agents; Z91.048 Other nonmedicinal substance allergy status; D83.9 Common variable immunodeficiency, unspecified; I82.401 Acute embolism and thrombosis of unspecified deep veins of right lower extremity

== ENCOUNTER 2024-01-03 07:12 | Observation (INO) ==
--- NOTE | 2024-01-03 07:40 | Emergency Department Note ---
Impression & Plan TIA (transient ischemic attack), Leg weakness, Acute leg pain ED Provider Note NAME: MARSHA BELLA AGE: 73 SEX: F : 1950 ARRIVES VIA: Walk-In INFORMANT: Patient ED PROVIDER(S): Sg Matos DO CHIEF COMPLAINT: left leg pain and weakness HPI: Patient is a 73-year-old female who presents to the ED with a past medical history of DVT, dyslipidemia, asthma and hypothyroidism for left leg pain. Started about a week ago with swelling of the ankle on the left. She notes over the past month she has missed her Eliquis dose 3 times or taking it later than she should have. She denies any headache or change in vision. No chest pain or shortness of breath. No nausea, vomiting, or diarrhea. Intermittently she had some pain in the left groin and then behind and anterior to the left knee. She notes that she had an hour yesterday where she could not lift or move her left leg and it felt like weight. ADDITIONAL HISTORY OBTAINED: Per HPI Chronic Medical/Social Conditions Affecting Care: Per HPI PAST MEDICAL HISTORY:See Below PAST SURGICAL HISTORY:See Below FAMILY HISTORY:See Below SOCIAL HISTORY:See Below HOME MEDICATIONS:See Below ALLERGIES:See Below VITALS:See Below PHYSICAL EXAMINATION: GENERAL: Sitting up in bed, alert, well appearing, well nourished, no distress, non-toxic EYE EXAM: normal conjunctiva. PERRL and EOM's grossly intact. OROPHARYNX: no exudate, no erythema, lips, buccal mucosa, and tongue normal and mucous membranes are moist NECK: supple, no nuchal rigidity, no adenopathy, non-tender LUNGS: Clear to auscultation. Normal chest wall mechanics HEART: no murmurs, S1 normal and S2 normal ABDOMEN: abdomen soft, non-tender, normo-active bowel sounds, no masses, no rebound or guarding. BACK: Back is symmetrical on inspection and there is no deformity, no midline tenderness, no CVA tenderness. SKIN: no rashes and no bruising UPPER EXTREMITIES: upper extremities are grossly normal. LOWER EXTREMITIES: No pitting edema. NEURO EXAM: Normal sensorium, cranial nerves II-XII intact, normal speech, no weakness of arms, no weakness of legs. No drift. Finger to nose intact. Gross sensation intact. MEDICAL DECISION MAKING: Patient is a 73-year-old female who presents ER for the above-stated complaint. IV was established blood work was obtained. Labs show no significant leukocytosis or anemia. INR unremarkable. BMP with slightly elevated glucose. Calcium mildly elevated 10.4. LFTs and troponin were negative. Duplex left lower extremity was negative. CT angio of the neck and head were negative. With the left leg weakness and being unable to move yesterday I do favor this most consistent with TIA and updated the patient and discussed with Walker Mario further evaluation management treatment. Consults/Care Managements Discussions: Per [facility] Triage Nursing notes reviewed. Limited review of prior medical records performed Vital Signs: reviewed and remarkable for HTN Differential diagnosis: Infection, dehydration, metabolic abnormality, hypo/hyperglycemia, electrolyte disturbance, anemia, hypoxia, cardiac sources, intracerebral event, toxicologic, neurologic, as well as other pathologies. ER treatment provided: See below Diagnostics interpreted by me include EKG and cardiac monitoring as listed below: -Cardiac Monitoring: An order was placed for continuous cardiac monitoring. The monitor shows a rate of 80 with sinus rhythm. -ECG: Sinus rhythm rate 85 Normal axis No PVCs Due to seated 41 -Laboratory studies:Interpreted by me as stated above in MDM and shown below. Imaging studies: Xrays: As interpreted by me:none CTs show: CT of the head per my preliminary interpretation showed no obvious large bleed CT angios of the head and neck were negative Procedures:none Critical Care: None Past Med/Surg History Problem List (Updated 01/03/24 @ 12:52 by Sg Matos DO) Acute leg pain (Acute) Leg weakness (Acute) TIA (transient ischemic attack) (Acute) Dizziness Colostomy status Autonomic dysfunction Hx of deep venous thrombosis Ambulatory dysfunction Abdominal hernia Hypothyroidism Common variable hypogammaglobulinemia (Chronic) Right leg DVT Acute deep vein thrombosis of right iliac vein Acute deep vein thrombosis (DVT) of inferior vena cava Diverticulosis Dyslipidemia Asthma Chronic sinusitis (Acute) Rectocele (Acute) Medical History (Updated 01/03/24 @ 12:52 by Sg Matos DO) Pulmonary emboli Insomnia Anxiety Parastomal hernia Hypothyroidism Colostomy in place IBS (irritable bowel syndrome) GERD (gastroesophageal reflux disease) HTN (hypertension) Respiratory failure with hypoxia Pneumonia Hx pulmonary embolism Common variable immunodeficiency Surgical History (Updated 01/03/24 @ 10:53 by Roberto Palomino PA-C) History of breast biopsy (2006) Status post right rotator cuff repair (2004) S/P partial colectomy (~07/2019) H/O vaginal surgery (~1999) Correction History of total knee arthroplasty H/O shoulder surgery S/P vaginal hysterectomy (~1989) Family History Grandmother Leukemia Stroke Mother Stroke Other Family history non-contributory Hypertension Tuberculosis Social History Smoking Status: Never smoker Second Hand Exposure: No; Do You Dip or Chew Tobacco: No; Hx Alcohol Use: No Hx Substance Use: No Preferred Language: Monegasque Communication Ability: Effective Datastage Consultant Required: No Beliefs That Will Affect Care: None marital status: Current Living Situation: Spouse Feels Safe at Home: Yes Assistive Devices: None Allergies Allergies Allergy/AdvReac Type Severity Reaction Status Date / Time levofloxacin Allergy Severe Anaphylaxis Verified 12/13/23 12:38 aspirin Allergy Intermediate HIVES Verified 12/13/23 12:38 house dust Allergy Intermediate ASTHMA Verified 12/13/23 12:38 TRIGGER pollen extracts Allergy Intermediate SHORTNESS Verified 12/13/23 12:38 OF BREATH montelukast [From Singulair] Allergy Unknown Unknown Verified 12/13/23 12:38 guar gum Allergy RASH ON Verified 12/13/23 12:38 [From Benefiber (guar gum)] CHEST Inhaled Anesthetics (Halogen AdvReac Severe stops Verified 12/13/23 12:38 Based) breathing erythromycin base AdvReac Intermediate NAUSEA, Verified 12/13/23 12:38 DRY HEAVES famotidine [From Pepcid] AdvReac Intermediate HALLUCINATI Verified 12/13/23 12:38 ONS fluticasone AdvReac Mild DIZZINESS Verified 12/13/23 12:38 Home Meds Home Medications Medication Instructions Recorded Confirmed cholecalciferol (vitamin D3) 25 25 mcg PO QAM 05/25/20 01/03/24 mcg (1,000 unit) capsule losartan 100 mg tablet 100 mg PO QAM 05/25/20 01/03/24 furosemide 20 mg tablet 20 mg PO DAILY PRN Edema 04/01/21 01/03/24 acetaminophen 500 mg tablet 500 mg PO QID PRN Pain 09/14/22 01/03/24 (Tylenol Extra Strength) multivitamin [Daily Multivitamin] 1 tab PO DAILY 09/14/22 01/03/24 cetirizine 10 mg tablet 10 mg PO DAILY 12/13/23 01/03/24 fluocinonide 0.1 % topical cream 1 applic topical DAILY PRN eczema 01/03/24 01/03/24 levothyroxine 25 mcg tablet 12.5 mcg PO DAILY 01/03/24 01/03/24 Previous Rx's Medication Instructions Recorded ondansetron 4 mg disintegrating 4 mg PO Q6H PRN nausea and 11/01/20 tablet vomiting #14 tabs albuterol sulfate 2.5 mg/3 mL 2.5 mg (3 mL) inhalation Q6H PRN 08/04/22 (0.083 %) solution for nebulization Shortness Of Breath #360 mL fluticasone 500 mcg-salmeterol 50 1 inh inhalation BID #60 ea 12/13/22 mcg/dose blistr powdr for inhalation (Advair Diskus) pantoprazole 40 mg tablet,delayed 40 mg PO QAM #90 tabs 05/22/23 release simvastatin 20 mg tablet See Rx Instructions .Route 06/29/23 .COMPLEX #90 tabs apixaban 5 mg tablet (Eliquis) See Rx Instructions .Route 07/13/23 .COMPLEX #60 tabs folic acid 1 mg tablet See Rx Instructions .Route 07/13/23 .COMPLEX #90 tabs albuterol sulfate 90 mcg/actuation See Rx Instructions .Route 07/14/23 aerosol inhaler .COMPLEX #17 grams immune glob,gamma (IgG) 10 See Rx Instructions .Route 07/31/23 %-gly-IgA over 50 mcg/mL injection .COMPLEX #300 ea solution (Gammagard Liquid) Results & Data (ED) Vital Signs Vital Signs - 24 hr 01/03/24 07:20 01/03/24 08:09 01/03/24 08:56 Temperature 36.5 C Temperature Source Temporal Artery Scan Pulse Rate - Lying Pulse Rate - Sitting Pulse Rate - Standing Pulse Rate 90 Pulse Rate [Apical] 85 75 Pulse Rate from SpO2 Sensor Pulse Rhythm [Apical] Pulse Strength [Apical] Respiratory Rate 20 18 14 Respiratory Effort / Characteristics Respiratory Depth Respiratory Pattern Blood Pressure - Lying Blood Pressure - Sitting Blood Pressure- Standing Blood Pressure 157/100 H Blood Pressure [Right Arm] 168/94 H 145/88 H Blood Pressure Mean 119 Blood Pressure Mean [Right Arm] 118 107 Blood Pressure Position [Right Arm] Pulse Oximetry 96 95 96 Oxygen Delivery Method Room Air Room Air Room Air Sepsis Recent Fever Within 48 Hours No Sepsis New/Unexplained Change in Mental Status N/A Sepsis Action Taken by Nursing No Action Required 01/03/24 09:18 01/03/24 09:35 01/03/24 09:45 Temperature Temperature Source Pulse Rate - Lying Pulse Rate - Sitting Pulse Rate - Standing Pulse Rate 80 82 82 Pulse Rate [Apical] Pulse Rate from SpO2 Sensor 82 Pulse Rhythm [Apical] Pulse Strength [Apical] Respiratory Rate 17 22 Respiratory Effort / Characteristics Respiratory Depth Respiratory Pattern Blood Pressure - Lying Blood Pressure - Sitting Blood Pressure- Standing Blood Pressure 158/71 H Blood Pressure [Right Arm] Blood Pressure Mean 109 Blood Pressure Mean [Right Arm] Blood Pressure Position [Right Arm] Pulse Oximetry 97 95 Oxygen Delivery Method Sepsis Recent Fever Within 48 Hours Sepsis New/Unexplained Change in Mental Status Sepsis Action Taken by Nursing 01/03/24 10:06 01/03/24 10:33 01/03/24 11:01 Temperature Temperature Source Pulse Rate - Lying Pulse Rate - Sitting Pulse Rate - Standing Pulse Rate 77 80 Pulse Rate [Apical] Pulse Rate from SpO2 Sensor 75 Pulse Rhythm [Apical] Pulse Strength [Apical] Respiratory Rate 13 16 Respiratory Effort / Characteristics Respiratory Depth Respiratory Pattern Blood Pressure - Lying Blood Pressure - Sitting Blood Pressure- Standing Blood Pressure 155/92 H 173/100 H Blood Pressure [Right Arm] Blood Pressure Mean 113 133 Blood Pressure Mean [Right Arm] Blood Pressure Position [Right Arm] Pulse Oximetry 97 Oxygen Delivery Method Room Air Sepsis Recent Fever Within 48 Hours Sepsis New/Unexplained Change in Mental Status Sepsis Action Taken by Nursing 01/03/24 11:03 01/03/24 11:30 01/03/24 11:51 Temperature Temperature Source Pulse Rate - Lying 80 Pulse Rate - Sitting 85 Pulse Rate - Standing 83 Pulse Rate 76 81 Pulse Rate [Apical] Pulse Rate from SpO2 Sensor Pulse Rhythm [Apical] Pulse Strength [Apical] Respiratory Rate 16 18 Respiratory Effort / Characteristics Respiratory Depth Respiratory Pattern Blood Pressure - Lying 156/86 H Blood Pressure - Sitting 170/97 H Blood Pressure- Standing 158/102 H Blood Pressure Blood Pressure [Right Arm] Blood Pressure Mean Blood Pressure Mean [Right Arm] Blood Pressure Position [Right Arm] Pulse Oximetry 95 Oxygen Delivery Method Room Air Sepsis Recent Fever Within 48 Hours Sepsis New/Unexplained Change in Mental Status Sepsis Action Taken by Nursing 01/03/24 12:34 Temperature Temperature Source Pulse Rate - Lying Pulse Rate - Sitting Pulse Rate - Standing Pulse Rate Pulse Rate [Apical] 83 Pulse Rate from SpO2 Sensor Pulse Rhythm [Apical] Regular Pulse Strength [Apical] Normal Respiratory Rate 17 Respiratory Effort / Characteristics Non-Labored Spontaneous Respiratory Depth Normal Respiratory Pattern Regular Blood Pressure - Lying Blood Pressure - Sitting Blood Pressure- Standing Blood Pressure Blood Pressure [Right Arm] 163/96 H Blood Pressure Mean Blood Pressure Mean [Right Arm] 118 Blood Pressure Position [Right Arm] Semi-fowlers Pulse Oximetry 94 Oxygen Delivery Method Room Air Sepsis Recent Fever Within 48 Hours Sepsis New/Unexplained Change in Mental Status Sepsis Action Taken by Nursing Laboratory Data 01/03/24 07:52 01/03/24 07:52 Lab Results 01/03/24 01/03/24 Range/Units 07:44 07:52 WBC 7.64 (4.8-10.8) K/ul RBC 4.59 (4.20-5.40) M/uL Hgb 13.4 (12.0-16.0) g/dl Hct 40.4 (37.0-47.0) % MCV 88.0 (80.0-100.0) fL MCH 29.2 (25.0-34.0) pg MCHC 33.2 (32.0-36.0) g/dL RDW Std Deviation 47.6 H (36.4-46.3) fL RDW Coeff of Mandeep 14.9 H (11.5-14.5) % Plt Count 199 (130-400) K/uL MPV 12.0 (9.4-12.4) fL Immature Gran % (Auto) 0.4 % Neut % (Auto) 54.8 % Lymph % (Auto) 32.1 % [place] % (Auto) 9.3 % Eos % (Auto) 2.9 % Baso % (Auto) 0.5 % Neut # (Auto) 4.19 (1.40-6.50) K/uL Lymph # (Auto) 2.45 (1.20-3.40) K/uL [place] # (Auto) 0.71 H (0.11-0.59) K/uL Eos # (Auto) 0.22 (0.00-0.50) K/uL Baso # (Auto) 0.04 (0.00-0.20) K/uL Immature Gran # (Auto) 0.03 (0.01-0.20) K/uL PT 10.3 (9.0-12.0) Seconds INR 0.9 (0.9-1.1) APTT 25 (21-31) Seconds PTT Ratio 0.9 Sodium 136 (136-145) mmol/L Potassium 4.1 (3.5-5.1) mmol/L Chloride 106 (98-107) mmol/L Carbon Dioxide 21 (21-32) mmol/L Anion Gap 9 (3-11) BUN 20 (6-23) mg/dl Creatinine 0.79 (0.6-1.2) mg/dl Est Cr Clr Drug Dosing 68.7 ml/min Est GFR ( Amer) 84.9 ml/min Est GFR (Non-Af Amer) 73.2 ml/min BUN/Creatinine Ratio 25.3 H (10-20) Glucose 113 H (70-99(Fasting)) mg/dl POC Glucose 113 H (70-99) mg/dl Calcium 10.4 H (8.6-10.3) mg/dl Magnesium 2.1 (1.7-2.4) mg/dl Total Bilirubin 0.4 (0.2-1.0) mg/dl AST 18 (13-39) U/L ALT 14 (7-52) U/L Alkaline Phosphatase 110 H (34-104) U/L Troponin I High Sens 5.0 (0-14) pg/ml Total Protein 7.5 (6.0-8.3) gm/dl Albumin 3.6 (3.4-5.0) gm/dl Globulin 3.9 (2.5-4.0) gm/dl Albumin/Globulin Ratio 0.9 (0.9-2) Administered Medications Discontinued Medications Ioversol (Optiray 320 125ml) 119 ml IV ONCE ONE Stop: 01/03/24 09:13 Last Admin: 01/03/24 09:12 Dose: 119 ml Documented By: JUJU Imaging Data Radiologist's Impression: Venous Doppler Study 01/03/24 07:34 US venous doppler LE LT CLINICAL HISTORY: ? dvt TECHNIQUE: Left lower extremity real-time compression venous ultrasound with Color Doppler imaging. Utilizing real-time ultrasonic imaging multiple real time high-resolution ultrasonic images with compression and noncompression maneuvers of the deep venous system in addition to color doppler imaging were performed from the common femoral vein through the proximal calf veins. COMPARISON: None available at the time of this dictation. FINDINGS/IMPRESSION: Currently there is normal compressibility of the deep venous system from the common femoral vein through the proximal calf veins. No superficial venous thrombosis is identified. ACT 112: Negative or not required by law. Electronically signed by: Gerard Sandoval M.D. 01/03/2024 8:[address] 01/03/24 07:35 CT angio neck with con, CT angio head w con, CT head/brain wo con CLINICAL HISTORY: neuro deficit, acute stroke suspected TECHNIQUE: Contiguous axial CT images of the head were acquired from the base of the skull to the vertex without intravenous contrast administration. CT angiography of the head and neck was performed following intravenous administration of iodinated contrast. Coronal and sagittal MIPS were obtained from the axial data set and were submitted for review. Automated dose lowering techniques and/or adjustment according to patient size were utilized for this examination. All measurements were calculated based on NASCET criteria. CT DOSE: 1014.77 mGy.cm Comparison: None available at the time of this dictation. FINDINGS: CT head: Areas of decreased attenuation are present in the periventricular and subcortical white matter bilaterally consistent with small vessel ischemic disease. Generalized cerebral atrophy with commensurate enlargement of the ventricles, sulci, and cisterns is also present. There is no acute intracranial hemorrhage or evidence of acute territorial infarction. No shift of the midline structures, mass effect, or extra-axial abnormalities are shown. Atherosclerotic calcifications are present in the intracranial segments of the internal carotid arteries. Lungs and soft tissues are unremarkable. CTA Neck: A 3 vessel aortic arch is shown. There is no significant atherosclerotic plaque in the aortic arch or the origins of the innominate, left common carotid, and left subclavian arteries. The common carotid, external carotid, cervical segments of the internal carotid arteries, and the cervical segments of the vertebral arteries are patent without hemodynamically significant stenosis. The right vertebral artery is dominant. CTA Head: The anterior and posterior cerebral circulations are patent. origin of the right posterior cerebral artery is seen. IMPRESSION: 1. No acute intracranial hemorrhage, evidence of acute territorial infarction, or other acute intracranial disease process. 2. No occlusion, hemodynamically significant stenosis, or dissection in the major cervical arteries. 3. No occlusion, hemodynamically significant stenosis, aneurysm, dissection, or arteriovenous malformation in the major intracranial arteries. Assessment of stenosis of the internal carotid arteries is based on NASCET criteria. ACT 112: Negative or not required by law. Electronically signed by: Gerard Sandoval M.D. 01/03/2024 9:43 AM Head CTA 01/03/24 07:35 CT angio neck with con, CT angio head w con, CT head/brain wo con CLINICAL HISTORY: neuro deficit, acute stroke suspected TECHNIQUE: Contiguous axial CT images of the head were acquired from the base of the skull to the vertex without intravenous contrast administration. CT angiography of the head and neck was performed following intravenous administration of iodinated contrast. Coronal and sagittal MIPS were obtained from the axial data set and were submitted for review. Automated dose lowering techniques and/or adjustment according to patient size were utilized for this examination. All measurements were calculated based on NASCET criteria. CT DOSE: 1014.77 mGy.cm Comparison: None available at the time of this dictation. FINDINGS: CT head: Areas of decreased attenuation are present in the periventricular and subcortical white matter bilaterally consistent with small vessel ischemic disease. Generalized cerebral atrophy with commensurate enlargement of the ventricles, sulci, and cisterns is also present. There is no acute intracranial hemorrhage or evidence of acute territorial infarction. No shift of the midline structures, mass effect, or extra-axial abnormalities are shown. Atherosclerotic calcifications are present in the intracranial segments of the internal carotid arteries. Lungs and soft tissues are unremarkable. CTA Neck: A 3 vessel aortic arch is shown. There is no significant atherosclerotic plaque in the aortic arch or the origins of the innominate, left common carotid, and left subclavian arteries. The common carotid, external carotid, cervical segments of the internal carotid arteries, and the cervical segments of the vertebral arteries are patent without hemodynamically significant stenosis. The right vertebral artery is dominant. CTA Head: The anterior and posterior cerebral circulations are patent. origin of the right posterior cerebral artery is seen. IMPRESSION: 1. No acute intracranial hemorrhage, evidence of acute territorial infarction, or other acute intracranial disease process. 2. No occlusion, hemodynamically significant stenosis, or dissection in the major cervical arteries. 3. No occlusion, hemodynamically significant stenosis, aneurysm, dissection, or arteriovenous malformation in the major intracranial arteries. Assessment of stenosis of the internal carotid arteries is based on NASCET criteria. ACT 112: Negative or not required by law. Electronically signed by: Gerard Sandoval M.D. 01/03/2024 9:43 AM Neck CTA 01/03/24 07:35 CT angio neck with con, CT angio head w con, CT head/brain wo con CLINICAL HISTORY: neuro deficit, acute stroke suspected TECHNIQUE: Contiguous axial CT images of the head were acquired from the base of the skull to the vertex without intravenous contrast administration. CT angiography of the head and neck was performed following intravenous administration of iodinated contrast. Coronal and sagittal MIPS were obtained from the axial data set and were submitted for review. Automated dose lowering techniques and/or adjustment according to patient size were utilized for this examination. All measurements were calculated based on NASCET criteria. CT DOSE: 1014.77 mGy.cm Comparison: None available at the time of this dictation. FINDINGS: CT head: Areas of decreased attenuation are present in the periventricular and subcortical white matter bilaterally consistent with small vessel ischemic disease. Generalized cerebral atrophy with commensurate enlargement of the ventricles, sulci, and cisterns is also present. There is no acute intracranial hemorrhage or evidence of acute territorial infarction. No shift of the midline structures, mass effect, or extra-axial abnormalities are shown. Atherosclerotic calcifications are present in the intracranial segments of the internal carotid arteries. Lungs and soft tissues are unremarkable. CTA Neck: A 3 vessel aortic arch is shown. There is no significant atherosclerotic plaque in the aortic arch or the origins of the innominate, left common carotid, and left subclavian arteries. The common carotid, external carotid, cervical segments of the internal carotid arteries, and the cervical segments of the vertebral arteries are patent without hemodynamically significant stenosis. The right vertebral artery is dominant. CTA Head: The anterior and posterior cerebral circulations are patent. origin of the right posterior cerebral artery is seen. IMPRESSION: 1. No acute intracranial hemorrhage, evidence of acute territorial infarction, or other acute intracranial disease process. 2. No occlusion, hemodynamically significant stenosis, or dissection in the major cervical arteries. 3. No occlusion, hemodynamically significant stenosis, aneurysm, dissection, or arteriovenous malformation in the major intracranial arteries. Assessment of stenosis of the internal carotid arteries is based on NASCET criteria. ACT 112: Negative or not required by law. Electronically signed by: Gerard Sandoval M.D. 01/03/2024 9:43 AM Discharge Plan Visit Data Chief Complaint: Swelling/Edema to Extremity Stated Complaint: LEG SWELLING, THINKS BLOOD CLOT, GROIN PAIN ED Provider: Sg Matos Discharge Problem: TIA (transient ischemic attack), Leg weakness, Acute leg pain Forms Stand Alone Forms: My [facility] Prescriptions Prescriptions: No Action albuterol sulfate 2.5 mg /3 mL (0.083 %) solution for nebulization 2.5 mg inhalation Q6H PRN (Reason: Shortness Of Breath) Qty: 360 11RF fluticasone propion-salmeterol [Advair Diskus] 500-50 mcg/dose blister with device 1 inh INHALATION BID Qty: 60 11RF pantoprazole 40 mg tablet,delayed release (DR/EC) 40 mg PO QAM Qty: 90 3RF Rx Instructions: TAKE 1 TABLET BY MOUTH EVERY MORNING simvastatin 20 mg tablet See Rx Instructions .ROUTE .COMPLEX Qty: 90 3RF Dose Instruction: TAKE 1 TABLET BY MOUTH AT BEDTIME Rx Instructions: TAKE 1 TABLET BY MOUTH AT BEDTIME Eliquis 5 mg tablet See Rx Instructions .ROUTE .COMPLEX Qty: 60 5RF Dose Instruction: TAKE 1 TABLET BY MOUTH TWO TIMES DAILY Rx Instructions: TAKE 1 TABLET BY MOUTH TWO TIMES DAILY folic acid 1 mg tablet See Rx Instructions .ROUTE .COMPLEX Qty: 90 3RF Dose Instruction: TAKE 1 TABLET BY MOUTH AT BEDTIME Rx Instructions: TAKE 1 TABLET BY MOUTH AT BEDTIME albuterol sulfate 90 mcg/actuation HFA aerosol inhaler See Rx Instructions .ROUTE .COMPLEX Qty: 17 5RF Dose Instruction: INHALE 2 PUFFS BY MOUTH EVERY 4 HOURS NEEDED FOR SHORTNESS OF BREATH Rx Instructions: INHALE 2 PUFFS BY MOUTH EVERY 4 HOURS NEEDED FOR SHORTNESS OF BREATH Gammagard Liquid 10 % solution See Rx Instructions .ROUTE .COMPLEX Qty: 300 11RF Dose Instruction: INFUSE 30 GM (300 ML) INTRAVENOUSLY EVERY 4 WEEKS Rx Instructions: INFUSE 30 GM (300 ML) INTRAVENOUSLY EVERY 28 days APPROVED GOOD 07/28/23-07/26/24 [id number] furosemide 20 mg tablet 20 mg PO DAILY PRN (Reason: Edema) multivitamin [Daily Multivitamin] 1 tab PO DAILY acetaminophen [Tylenol Extra Strength] 500 mg tablet 500 mg PO QID PRN (Reason: Pain) cetirizine 10 mg tablet 10 mg PO DAILY losartan 100 mg tablet 100 mg PO QAM cholecalciferol (vitamin D3) 25 mcg (1,000 unit) capsule 25 mcg PO QAM ondansetron 4 mg tablet,disintegrating 4 mg PO Q6H PRN (Reason: nausea and vomiting) Qty: 14 0RF levothyroxine 25 mcg tablet 12.5 mcg PO DAILY fluocinonide 0.1 % cream 1 applic topical DAILY PRN (Reason: eczema) Referrals Referrals: Joselito Harrington MD [Physician] - Discharge Problem: Leg weakness Qualifiers: Laterality: left Qualified Code(s): R29.898 - Other symptoms and signs involving the musculoskeletal system Acute leg pain Qualifiers: Laterality: left Qualified Code(s): M79.605 - Pain in left leg
[2024-01-03 08:27] LABS: Basophils # (auto) 0.04 K/uL (0.00-0.20); Basophils % (auto) 0.5 %; Eosinophils # (auto) 0.22 K/uL (0.00-0.50); Eosinophils % (auto) 2.9 %; Hematocrit (blood only) 40.4 % (37.0-47.0); Hemoglobin 13.4 g/dl (12.0-16.0); Immature Granulocytes # (auto) 0.03 K/uL (0.01-0.20); Immature Granulocytes % (auto) 0.4 %; Lymphocytes # (auto) 2.45 K/uL (1.20-3.40); Lymphocytes % (auto) 32.1 %; Mean Corpuscular Hemoglobin 29.2 pg (25.0-34.0); Mean Corpuscular Hgb Conc 33.2 g/dL (32.0-36.0); Monocytes # (auto) 0.71 K/uL (0.11-0.59); Monocytes % (auto) 9.3 %; Neutrophils # (auto) 4.19 K/uL (1.40-6.50); Neutrophils % (auto) 54.8 %; Platelet Count 199 K/uL (130-400); RDW Coefficient of Variation 14.9 % (11.5-14.5); RDW Standard Deviation 47.6 fL (36.4-46.3); Red Blood Count 4.59 M/uL (4.20-5.40); White Blood Count 7.64 K/ul (4.8-10.8)
[2024-01-03 08:51] LABS: Albumin Globulin Ratio 0.9 (0.9-2); Albumin Level 3.6 gm/dl (3.4-5.0); BUN Creatinine Ratio 25.3 (10-20); Bilirubin,Total 0.4 mg/dl (0.2-1.0); Calcium 10.4 mg/dl (8.6-10.3); Creatinine Clr Calc Pharmacy 68.7 ml/min; Est GFR (African American) 84.9 ml/min; Est GFR (Non-African American) 73.2 ml/min; Globulin 3.9 gm/dl (2.5-4.0); Magnesium 2.1 mg/dl (1.7-2.4); Total Protein 7.5 gm/dl (6.0-8.3)
[2024-01-03 08:53] LABS: INR 0.9 (0.9-1.1); Partial Thromboplastin Ratio 0.9; Partial Thromboplastin Time 25 Seconds (21-31); Prothrombin Time 10.3 Seconds (9.0-12.0)
[2024-01-03 08:56] LABS: Potassium 4.1 mmol/L (3.5-5.1)
--- NOTE | 2024-01-03 08:56 | Ultrasound Report ---
US venous doppler LE LT CLINICAL HISTORY: ? dvt TECHNIQUE: Left lower extremity real-time compression venous ultrasound with Color Doppler imaging. U tilizing real-time ultrasonic imaging multiple real time high-resolution ultrasonic images with compr ession and noncompression maneuvers of the deep venous system in addition to color doppler imaging we re performed from the common femoral vein through the proximal calf veins. COMPARISON: None available at the time of this dictation. FINDINGS/IMPRESSION: Currently there is normal compressibility of the deep venous system from the common femoral vein thro ugh the proximal calf veins. No superficial venous thrombosis is identified. ACT 112: Negative or not required by law. Electronically signed by: Gerard Sandoval M.D. 01/03/2024 8:55 AM
[2024-01-03] MEDS: OPTIRAY 320 125ml IV ONE (09:12)
--- NOTE | 2024-01-03 09:46 | CT Scan Report ---
CT angio neck with con, CT angio head w con, CT head/brain wo con CLINICAL HISTORY: neuro deficit, acute stroke suspected TECHNIQUE: Contiguous axial CT images of the head were acquired from the base of the skull to the lawrence petar without intravenous contrast administration. CT angiography of the head and neck was performed f ollowing intravenous administration of iodinated contrast. Coronal and sagittal MIPS were obtained fr om the axial data set and were submitted for review. Automated dose lowering techniques and/or adjus tment according to patient size were utilized for this examination. All measurements were calculated based on NASCET criteria. CT DOSE: 1014.77 mGy.cm Comparison: None available at the time of this dictation. FINDINGS: CT head: Areas of decreased attenuation are present in the periventricular and subcortical white korin er bilaterally consistent with small vessel ischemic disease. Generalized cerebral atrophy with comme nsurate enlargement of the ventricles, sulci, and cisterns is also present. There is no acute intracr anial hemorrhage or evidence of acute territorial infarction. No shift of the midline structures, mas s effect, or extra-axial abnormalities are shown. Atherosclerotic calcifications are present in the intracranial segments of the internal carotid arteries. Lungs and soft tissues are unremarkable. CTA Neck: A 3 vessel aortic arch is shown. There is no significant atherosclerotic plaque in the aor tic arch or the origins of the innominate, left common carotid, and left subclavian arteries. The co mmon carotid, external carotid, cervical segments of the internal carotid arteries, and the cervical segments of the vertebral arteries are patent without hemodynamically significant stenosis. The right vertebral artery is dominant. CTA Head: The anterior and posterior cerebral circulations are patent. origin of the right pos terior cerebral artery is seen. IMPRESSION: 1. No acute intracranial hemorrhage, evidence of acute territorial infarction, or other acute intrac ranial disease process. 2. No occlusion, hemodynamically significant stenosis, or dissection in the major cervical arteries. 3. No occlusion, hemodynamically significant stenosis, aneurysm, dissection, or arteriovenous malfor mation in the major intracranial arteries. Assessment of stenosis of the internal carotid arteries is based on NASCET criteria. ACT 112: Negative or not required by law. Electronically signed by: Gerard Sandoval M.D. 01/03/2024 9:43 AM
--- NOTE | 2024-01-03 10:14 | History & Physical Report ---
Date of Service January 03, 2024 Assessment & Plan (1) Ambulatory dysfunction: Plan: Patient reports that her left leg will occasionally stop working Pain in the left groin with radiation down the lateral aspect of the left leg; worse with knee bending and external rotation of left hip Venous Doppler of the left leg without DVT Left hip x-ray ordered, pending to assess for arthritis Head CT and head/neck CTA without acute abnormalities MRI brain without acute findings; ordered to complete stroke work-up for new left leg deficits Unclear etiology; suspect arthritis / degenerative changes contributing Will bring in on observation as patient still exhibits considerable ambulatory difficulty May require rehab if an extended stay is required; PT/OT consulted Orthostatic vitals ordered, pending PT/OT evaluations appreciated Fall precautions A.m. CBC, BMP (2) Common variable hypogammaglobulinemia: Plan: Patient follows with the [facility] for her IVIG every 28 days Last IVIG on Thursday 12/28 (3) Hx of deep venous thrombosis: Plan: Continue Eliquis (4) Autonomic dysfunction: Plan: Hx of syncope secondary to autonomic dysfunction (5) Dizziness: Plan: Meclizine 12.5mg p.o. q6h as needed for dizziness Zofran as needed for associated nausea (6) Colostomy status: Plan: Daily colostomy care Plan Disposition: Obs - Admit to [facility] Full code Regular diet VTE PPx: On Eliquis History of Present Illness Chief Complaint: Ambulatory dysfunction, left-sided groin and leg pain Primary Care Provider: DO Cony Coelho is a 73-year-old female with PMH of dyslipidemia, DVT of inferior vena cava (on Eliquis), hypothyroidism, common variable hypogammaglobinemia, breast cancer, asthma, and rectocele. She presented for worsening bilateral leg swelling, and left leg ambulatory dysfunction x 3 weeks. Patient reports that she sometimes cannot move her left leg at all. She ambulates with a walker at baseline, and several times has felt off balance as her left leg stopped moving while walking; last occurred on Saturday 12/30, and then again yesterday on Monday 01/01. She reports that she traveled to the bathroom on Monday, then when she returned to bed her left knee would not bend; she was unsure if she could wiggle her toes at this time; this left leg deficit lasted for approximately 1 hour. No falls or syncope. No history of stroke, and she denies any strokelike symptoms such as slurred speech, facial droop, or upper extremity deficits. She does have a family history of stroke (her mother and grandma). Patient had IVIG on Thursday 12/28, then over the last few days she has noticed pain in her left groin with radiation down the lateral aspect of the left leg. She reports the pain is intermittent, and exacerbated by movements and lifting the leg up. She has been taking Tylenol intermittently for the pain, but she is unsure if this helps. No radiation to the lower back. [facility] common variable hypogammaglobinemia (receives IVIG). No history of vertigo to her knowledge, but she does note syncopal episodes in the past which she believes are secondary to changes in BP and autonomic dysfunction. She reports she was feeling lightheaded last week, and nearly blacked out. She reports she has had 6-7 concussions in the past. Patient did not take any of her regular morning medications today; no recent change in medications. She reports that she normally has good compliance with her Eliquis, but given she has been feeling off for the past 3 weeks, she has mis- timed certain doses, and completely forgotten 2-3 doses. She denies smoking, tobacco use, and alcohol use. Patient is hypertensive at 158/71 at time admission; vitals otherwise stable. ED course: ROS: Patient endorses lightheadedness when walking, feeling off balance, left leg giving out, wet cough (which patient attributes to asthma; white productive cough at times), intermittent nausea (ongoing), near urinary incontinence (comes on suddenly), and occassional "shocks" up and down her left leg. Patient denies fever, chills, nightsweats, dizziness, difficulty swallowing, slurred speech, facial droop, headache, changes in vision, fainting, chest pain, SOB, hemoptysis, pleuritic CP, abdominal pain, vomiting, changes in urinary/bowel habits, blood in the urine/stool, dysuria, burning with urination, saddle anesthesia, or numbness/tingling in the left leg. Allergies Allergy/AdvReac Type Severity Reaction Status Date / Time levofloxacin Allergy Severe Anaphylaxis Verified 12/13/23 12:38 aspirin Allergy Intermediate HIVES Verified 12/13/23 12:38 house dust Allergy Intermediate ASTHMA Verified 12/13/23 12:38 TRIGGER pollen extracts Allergy Intermediate SHORTNESS Verified 12/13/23 12:38 OF BREATH montelukast [From Singulair] Allergy Unknown Unknown Verified 12/13/23 12:38 guar gum Allergy RASH ON Verified 12/13/23 12:38 [From Benefiber (guar gum)] CHEST Inhaled Anesthetics (Halogen AdvReac Severe stops Verified 12/13/23 12:38 Based) breathing erythromycin base AdvReac Intermediate NAUSEA, Verified 12/13/23 12:38 DRY HEAVES famotidine [From Pepcid] AdvReac Intermediate HALLUCINATI Verified 12/13/23 12:38 ONS fluticasone AdvReac Mild DIZZINESS Verified 12/13/23 12:38 Home Medications Medication Instructions Recorded Confirmed Type cholecalciferol (vitamin D3) 25 25 mcg PO QAM 05/25/20 01/03/24 History mcg (1,000 unit) capsule losartan 100 mg tablet 100 mg PO QAM 05/25/20 01/03/24 History ondansetron 4 mg disintegrating 4 mg PO Q6H PRN nausea and 11/01/20 01/03/24 Rx tablet vomiting #14 tabs furosemide 20 mg tablet 20 mg PO DAILY PRN Edema 04/01/21 01/03/24 History albuterol sulfate 2.5 mg/3 mL 2.5 mg (3 mL) inhalation Q6H PRN 08/04/22 01/03/24 Rx (0.083 %) solution for nebulization Shortness Of Breath #360 mL acetaminophen 500 mg tablet 500 mg PO QID PRN Pain 09/14/22 01/03/24 History (Tylenol Extra Strength) multivitamin [Daily Multivitamin] 1 tab PO DAILY 09/14/22 01/03/24 History fluticasone 500 mcg-salmeterol 50 1 inh inhalation BID #60 ea 12/13/22 01/03/24 Rx mcg/dose blistr powdr for inhalation (Advair Diskus) pantoprazole 40 mg tablet,delayed 40 mg PO QAM #90 tabs 05/22/23 01/03/24 Rx release simvastatin 20 mg tablet See Rx Instructions .Route 06/29/23 01/03/24 Rx .COMPLEX #90 tabs apixaban 5 mg tablet (Eliquis) See Rx Instructions .Route 07/13/23 01/03/24 Rx .COMPLEX #60 tabs folic acid 1 mg tablet See Rx Instructions .Route 07/13/23 01/03/24 Rx .COMPLEX #90 tabs albuterol sulfate 90 mcg/actuation See Rx Instructions .Route 07/14/23 01/03/24 Rx aerosol inhaler .COMPLEX #17 grams immune glob,gamma (IgG) 10 See Rx Instructions .Route 07/31/23 01/03/24 Rx %-gly-IgA over 50 mcg/mL injection .COMPLEX #300 ea solution (Gammagard Liquid) cetirizine 10 mg tablet 10 mg PO DAILY 12/13/23 01/03/24 History fluocinonide 0.1 % topical cream 1 applic topical DAILY PRN eczema 01/03/24 01/03/24 History levothyroxine 25 mcg tablet 12.5 mcg PO DAILY 01/03/24 01/03/24 History Past Med/Surg History Problem List (Updated 01/03/24 @ 12:52 by Sg Matos DO) Acute leg pain (Acute) Leg weakness (Acute) TIA (transient ischemic attack) (Acute) Dizziness Colostomy status Autonomic dysfunction Hx of deep venous thrombosis Ambulatory dysfunction Abdominal hernia Hypothyroidism Common variable hypogammaglobulinemia (Chronic) Right leg DVT Acute deep vein thrombosis of right iliac vein Acute deep vein thrombosis (DVT) of inferior vena cava Diverticulosis Dyslipidemia Asthma Chronic sinusitis (Acute) Rectocele (Acute) Medical History (Updated 01/03/24 @ 12:52 by Sg Matos DO) Pulmonary emboli Insomnia Anxiety Parastomal hernia Hypothyroidism Colostomy in place IBS (irritable bowel syndrome) GERD (gastroesophageal reflux disease) HTN (hypertension) Respiratory failure with hypoxia Pneumonia Hx pulmonary embolism Common variable immunodeficiency Surgical History (Updated 01/03/24 @ 10:53 by Roberto Palomino PA-C) History of breast biopsy (2006) Status post right rotator cuff repair (2004) S/P partial colectomy (~07/2019) H/O vaginal surgery (~1999) Correction History of total knee arthroplasty H/O shoulder surgery S/P vaginal hysterectomy (~1989) Family History Grandmother Leukemia Stroke Mother Stroke Other Family history non-contributory Hypertension Tuberculosis Social History Smoking Status: Never smoker Second Hand Exposure: No; Do You Dip or Chew Tobacco: No; Hx Alcohol Use: No Hx Substance Use: No Preferred Language: Mongolian Communication Ability: Effective Certified Ophthalmic Medical Technician Required: No Beliefs That Will Affect Care: None marital status: Current Living Situation: Spouse Feels Safe at Home: Yes Assistive Devices: None Review of Systems Review of Systems: See HPI above Physical Exam Physical Exam: General: no acute distress; non-toxic appearing; well-nourished; cooperative; SpO2 97% on RA HEENT: normocephalic, atraumatic; no scleral icterus; PERRLA w/ EOMs intact; moist mucus membrane; vision and hearing grossly intact; patient demonstrates to be able to smile, frown, and lift the eyebrows without unilateral deficits; patient does note diminished sensation on the left side assessed via light touch at the cheek Neck: supple; no lymphadenopathy; trachea midline; patient demonstrates ability to shrug shoulders against resistance without pain; rotating the neck left and right elicits dizziness Skin: warm, dry without signs of tenting; no cyanosis; no rashes, bruising, lesions, or erythema noted CV: chest wall NTP; port on the left upper chest wall without signs of erythema, drainage, or infection; RRR; S1/S2 normal; no murmurs/rubs/gallops; pulses intact and symmetric at radial, DP, and PT Lungs: no acute respiratory distress; symmetrical chest wall expansion; clear breath sounds across all lung vanessa w/o adventitious sounds; no wheezing ABD: Soft, NTP; BS present; no rebound/guarding; no distention; colostomy on the left upper quadrant without signs of erythema or infection MSK: no tics or fasciculations; 5/5 manager shell strength bilaterally; nonpitting edema noted in the LEs b/l, nonerythematous; patient demonstrates ability to wiggle toes, plantarflex/dorsiflex against resistance with 5/5 strength bilaterally; she can bend her knees bilaterally (albeit bending the left knee reproduces pain); left hip is NTP; left groin pain with external rotation of the left hip; no left inguinal lymphadenopathy Neuro: A&Ox3; normal mood and affect; fluent speech; no slurred speech; no facial droop; sensation is diminished on the lateral side of the left lower extremity when compared to the right Results & Data Results & Data Vital Signs (Past 12 Hours) Vital Signs Temp Pulse Pulse Resp BP BP Pulse Ox 01/03/24 10:06 77 13 155/92 H 97 01/03/24 09:45 82 22 95 01/03/24 09:35 82 01/03/24 09:18 80 17 158/71 H 97 01/03/24 08:56 75 14 145/88 H 96 01/03/24 08:09 85 18 168/94 H 95 01/03/24 07:20 36.5 C 90 20 157/100 H 96 O2 Del Method 01/03/24 10:06 Room Air 01/03/24 09:45 01/03/24 09:35 01/03/24 09:18 01/03/24 08:56 Room Air 01/03/24 08:09 Room Air 01/03/24 07:20 Room Air Laboratory Results Abnormal lab results 01/03/24 01/03/24 Range/Units 07:44 07:52 RDW Std Deviation 47.6 H (36.4-46.3) fL RDW Coeff of Mandeep 14.9 H (11.5-14.5) % [place] # (Auto) 0.71 H (0.11-0.59) K/uL BUN/Creatinine Ratio 25.3 H (10-20) Glucose 113 H (70-99(Fasting)) mg/dl POC Glucose 113 H (70-99) mg/dl Calcium 10.4 H (8.6-10.3) mg/dl Alkaline Phosphatase 110 H (34-104) U/L Diagnostic Findings Venous Doppler Study 01/03/24 07:34 US venous doppler LE LT CLINICAL HISTORY: ? dvt TECHNIQUE: Left lower extremity real-time compression venous ultrasound with Color Doppler imaging. Utilizing real-time ultrasonic imaging multiple real time high-resolution ultrasonic images with compression and noncompression maneuvers of the deep venous system in addition to color doppler imaging were performed from the common femoral vein through the proximal calf veins. COMPARISON: None available at the time of this dictation. FINDINGS/IMPRESSION: Currently there is normal compressibility of the deep venous system from the common femoral vein through the proximal calf veins. No superficial venous thrombosis is identified. ACT 112: Negative or not required by law. Electronically signed by: Gerard Sandoval M.D. 01/03/2024 8:[address] 01/03/24 07:35 CT angio neck with con, CT angio head w con, CT head/brain wo con CLINICAL HISTORY: neuro deficit, acute stroke suspected TECHNIQUE: Contiguous axial CT images of the head were acquired from the base of the skull to the vertex without intravenous contrast administration. CT angiography of the head and neck was performed following intravenous administration of iodinated contrast. Coronal and sagittal MIPS were obtained from the axial data set and were submitted for review. Automated dose lowering techniques and/or adjustment according to patient size were utilized for this examination. All measurements were calculated based on NASCET criteria. CT DOSE: 1014.77 mGy.cm Comparison: None available at the time of this dictation. FINDINGS: CT head: Areas of decreased attenuation are present in the periventricular and subcortical white matter bilaterally consistent with small vessel ischemic disease. Generalized cerebral atrophy with commensurate enlargement of the ventricles, sulci, and cisterns is also present. There is no acute intracranial hemorrhage or evidence of acute territorial infarction. No shift of the midline structures, mass effect, or extra-axial abnormalities are shown. Atherosclerotic calcifications are present in the intracranial segments of the internal carotid arteries. Lungs and soft tissues are unremarkable. CTA Neck: A 3 vessel aortic arch is shown. There is no significant atherosclerotic plaque in the aortic arch or the origins of the innominate, left common carotid, and left subclavian arteries. The common carotid, external carotid, cervical segments of the internal carotid arteries, and the cervical segments of the vertebral arteries are patent without hemodynamically significant stenosis. The right vertebral artery is dominant. CTA Head: The anterior and posterior cerebral circulations are patent. origin of the right posterior cerebral artery is seen. IMPRESSION: 1. No acute intracranial hemorrhage, evidence of acute territorial infarction, or other acute intracranial disease process. 2. No occlusion, hemodynamically significant stenosis, or dissection in the major cervical arteries. 3. No occlusion, hemodynamically significant stenosis, aneurysm, dissection, or arteriovenous malformation in the major intracranial arteries. Assessment of stenosis of the internal carotid arteries is based on NASCET crite sarah. ACT 112: Negative or not required by law. Electronically signed by: Gerard Sandoval M.D. 01/03/2024 9:43 AM Head CTA 01/03/24 07:35 CT angio neck with con, CT angio head w con, CT head/brain wo con CLINICAL HISTORY: neuro deficit, acute stroke suspected TECHNIQUE: Contiguous axial CT images of the head were acquired from the base of the skull to the vertex without intravenous contrast administration. CT angiography of the head and neck was performed following intravenous administration of iodinated contrast. Coronal and sagittal MIPS were obtained f rom the axial data set and were submitted for review. Automated dose lowering techniques and/or adjustment according to patient size were utilized for this examination. All measurements were calculated based on NASCET criteria. CT DOSE: 1014.77 mGy.cm Comparison: None available at the time of this dictation. FINDINGS: CT head: Areas of decreased attenuation are present in the periventricular and subcortical white matter bilaterally consistent with small vessel ischemic disease. Generalized cerebral atrophy with commensurate enlargement of the ventricles, sulci, and cisterns is also present. There is no acute intracranial hemorrhage or evidence of acute territorial infarction. No shift of the midline structures, mass effect, or extra-axial abnormalities are shown. Atherosclerot ic calcifications are present in the intracranial segments of the internal carotid arteries. Lungs and soft tissues are unremarkable. CTA Neck: A 3 vessel aortic arch is shown. There is no significant atherosclerotic plaque in the aortic arch or the origins of the innominate, left common carotid, and left subclavian arteries. The common carotid, external carotid, cervical segments of the internal carotid arteries, and the cervical segments of the vertebral arteries are patent without hemodynamically significant stenosis. The right vertebral artery is dominant. CTA Head: The anterior and posterior cerebral circulations are patent. origin of the right posterior cerebral artery is seen. IMPRESSION: 1. No acute intracranial hemorrhage, evidence of acute territorial infarction, or other acute intracranial disease process. 2. No occlusion, hemodynamically significant stenosis, or dissection in the major cervical arteries. 3. No occlusion, hemodynamically significant stenosis, aneurysm, dissection, or arteriovenous malformation in the major intracranial arteries. Assessment of stenosis of the internal carotid arteries is based on NASCET criteria. ACT 112: Negative or not required by law. Electronically signed by: Gerard Sandoval M.D. 01/03/2024 9:43 AM Neck CTA 01/03/24 07:35 CT angio neck with con, CT angio head w con, CT head/brain wo con CLINICAL HISTORY: neuro deficit, acute stroke suspected TECHNIQUE: Contiguous axial CT images of the head were acquired from the base of the skull to the vertex without intravenous contrast administration. CT angiography of the head and neck was performed following intravenous administration of iodinated contrast. Coronal and sagittal MIPS were obtained from the axial data set and were submitted for review. Automated dose lowering techniques and/or adjustment according to patient size were utilized for this examination. All measurements were calculated based on NASCET criteria. CT DOSE: 1014.77 mGy.cm Comparison: None available at the time of this dictation. FINDINGS: CT head: Areas of decreased attenuation are present in the periventricular and subcortical white matter bilaterally consistent with small vessel ischemic disease. Generalized cerebral atrophy with commensurate enlargement of the ventricles, sulci, and cisterns is also present. There is no acute intracranial hemorrhage or evidence of acute territorial infarction. No shift of the midline structures, mass effect, or extra-axial abnormalities are shown. Atherosclerotic calcifications are present in the intracranial segments of the internal carotid arteries. Lungs and soft tissues are unremarkable. CTA Neck: A 3 vessel aortic arch is shown. There is no significant atherosclerotic plaque in the aortic arch or the origins of the innominate, left common carotid, and left subclavian arteries. The common carotid, external carotid, cervical segments of the internal carotid arteries, and the cervical segments of the vertebral arteries are patent without hemodynamically significant stenosis. The right vertebral artery is dominant. CTA Head: The anterior and posterior cerebral circulations are patent. origin of the right posterior cerebral artery is seen. IMPRESSION: 1. No acute intracranial hemorrhage, evidence of acute territorial infarction, or other acute intracranial disease process. 2. No occlusion, hemodynamically significant stenosis, or dissection in the major cervical arteries. 3. No occlusion, hemodynamically significant stenosis, aneurysm, dissection, or arteriovenous malformation in the major intracranial arteries. Assessment of stenosis of the internal carotid arteries is based on NASCET criteria. ACT 112: Negative or not required by law. Electronically signed by: Gerard Sandoval M.D. 01/03/2024 9:43 AM ECG Additional Comments: ECG revealed NSR at 85 bpm; QTc 421 Code Status & VTE Plan Code Status Full code VTE Prophylaxis Plan VTE Prophylaxis will be ordered: Yes Supervising Physician Co-Signing Physician Notes Patient seen and examined, chart reviewed, case discussed with Roberto Palomino PA-C and I agree with the assessment and plan as above except as otherwise noted Labs and images reviewed Cony is a 73-year-old female with past medical history of DVT on Eliquis, hypothyroidism, common variable hypogammaglobulinemia on IVIG last 12/28, breast cancer, asthma, dyslipidemia who has had bilateral ankle swelling for approximately 10 days worse in the left leg, some pain in the left leg and groin, and who had an episode of complete weakness in the left leg day prior to admission where she had the lift the leg with her arm to move it and felt she could not move the leg at all. She has had some groin pain with movement similar to prior DVT. Dopplers are negative. Given complete lack of strength with sudden onset agree with completion of stroke workup as above, MRI is pending. Hip external rotation produces pain at the anterior groin, hip flexion is limited past 30 degrees due to pain at the anterior groin. Suspect arthritis/MSK pain. No back pain. No numbness/tingling and is otherwise neurovascularly intact in distal strength/ankle dorsiflexion plantarflexion is 5/5. PT/OT pending, stroke eval pending, hip x-ray added for arthritis evaluation. Agree with above. PG Care Time/CCT Total # of Minutes Spent Total Time Spent with Patient: Total time spent is greater than 50% in coordination of care (as documented) at patient's floor/unit and/or counseling patient: Coding [place] [address] INT INP/OBS CARE 2/55MIN Patient Type Established History Comprehensive Exam Comprehensive Medical Decision Making Moderate Complexity Diagnoses Ambulatory dysfunction R26.2 Common variable hypogammaglobulinemia D80.1 Hx of deep venous thrombosis Z86.718 Autonomic dysfunction G90.9 Dizziness R42 Colostomy status Z93.3
[2024-01-03] MEDS: ONDANSETRON INJ 2 MG/ML 2 ML VIAL IV STA (13:03)
[2024-01-03] MEDS: LORazepam 0.5 MG in SYRINGE 0.25 ML IV PRN (13:37)
--- NOTE | 2024-01-03 13:44 | XRay Report ---
XR hip LT 2V w pelvis CLINICAL HISTORY: left hip pain with external rotation; ?arthritis TECHNIQUE: 2 views of the left hip and single frontal view of the pelvis were obtained. Comparison: None available at the time of this dictation. FINDINGS: There is no evidence of an acute fracture. Degenerative changes are seen in the hip joint. No soft ti ssue abnormality is seen. IMPRESSION: Degenerative changes without evidence of acute abnormality. ACT 112: Negative or not required by law. Electronically signed by: Gerard Sandoval M.D. 01/03/2024 1:42 PM
--- NOTE | 2024-01-03 14:40 | Magnetic Resonance Report ---
Brain MRI WITHOUT CONTRAST HISTORY: Left leg deficits; stroke r/o TECHNIQUE: Multiplanar multisequence MRI of the brain was performed without the use of contrast. COMPARISON STUDY: Head CT 01/03/2024. FINDINGS: There is no mass, hematoma, midline shift, or acute infarct. The paranasal sinuses are damon r. The mastoid air cells are clear. The ventricles and sulci demonstrate mild age-related involutiona l changes. Scattered foci of T2 hyperintensity seen within the periventricular and subcortical white matter are nonspecific but suggestive of mild microvascular ischemic changes. The major vascular flow voids at the skull base are well-maintained. IMPRESSION: No acute intracranial abnormality. Scattered foci of T2 hyperintensity seen within the periventricula r and subcortical white matter are nonspecific but favor microvascular ischemic change. ACT 112: Negative or not required by law. Electronically signed by: Roberto Harris M.D. 01/03/2024 2:39 PM
[2024-01-03] MEDS ORDERED: ONDANSETRON INJ 2 MG/ML 2 ML VIAL IV PRN (16:08)
[2024-01-03] MEDS ORDERED: MECLIZINE 12.5 MG TAB PO PRN (16:08)
[2024-01-03] MEDS ORDERED: ALBUTEROL 0.083% NEBU SOLN 3 ML VIAL INH PRN (16:08)
[2024-01-03] MEDS ORDERED: MELATONIN 3 MG TAB PO PRN (16:08)
[2024-01-03] MEDS ORDERED: ALBUTEROL HFA 8 GM INHALER INH PRN (16:08)
[2024-01-03] MEDS ORDERED: guaiFENesin 600 MG TABCR PO PRN (16:40)
[2024-01-03] MEDS ORDERED: Nursing to Pharmacy Communication SCH (16:45)
[2024-01-03] MEDS: LOSARTAN POTASSIUM 50 MG TAB PO STA (17:03)
--- NOTE | 2024-01-03 17:19 | XRay Report ---
XR chest 1V portable CLINICAL HISTORY: Productive cough. COMPARISON STUDY: Chest CT August 25, 2021. Chest radiograph March 21, 2023. FINDINGS: Left subclavian [id number] is in place. Electronic device projects over the left chest. There is no pneumothorax or pleural effusion. No consolidation to suggest pneumonia. No evidence for pulmonary edema. Cardiomediastinal silhouette is stable. IMPRESSION: No acute cardiopulmonary findings. No change in appearance of the chest. ACT 112: Negative or not required by law. Electronically signed by: Trung Milligan M.D. 01/03/2024 5:18 PM
[2024-01-03] MEDS: APIXABAN 5 MG TABLET PO SCH (20:25)
[2024-01-03] MEDS: SIMVASTATIN 20 MG TAB PO SCH (20:25)
[2024-01-03] MEDS: CETIRIZINE HCL 10 MG TABLET PO SCH (20:26)
[2024-01-04] MEDS: PANTOprazole 40 MG TAB PO SCH (00:33)
[2024-01-04] MEDS: LEVOTHYROXINE SODIUM 25 MCG TABLET PO SCH (05:08)
[2024-01-04] MEDS: ACETAMINOPHEN 325 MG TAB PO PRN (05:10)
[2024-01-04 05:49] LABS: Basophils # (auto) 0.04 K/uL (0.00-0.20); Basophils % (auto) 0.5 %; Eosinophils # (auto) 0.18 K/uL (0.00-0.50); Eosinophils % (auto) 2.3 %; Hematocrit (blood only) 39.8 % (37.0-47.0); Hemoglobin 13.1 g/dl (12.0-16.0); Immature Granulocytes # (auto) 0.02 K/uL (0.01-0.20); Immature Granulocytes % (auto) 0.3 %; Lymphocytes % (auto) 27.7 %; Mean Corpuscular Hemoglobin 29.2 pg (25.0-34.0); Mean Corpuscular Hgb Conc 32.9 g/dL (32.0-36.0); Mean Corpuscular Volume 88.8 fL (80.0-100.0); Mean Platelet Volume 11.5 fL (9.4-12.4); Monocytes # (auto) 0.76 K/uL (0.11-0.59); Monocytes % (auto) 9.6 %; Neutrophils # (auto) 4.74 K/uL (1.40-6.50); Neutrophils % (auto) 59.6 %; Platelet Count 205 K/uL (130-400); RDW Coefficient of Variation 15.1 % (11.5-14.5); RDW Standard Deviation 49.1 fL (36.4-46.3); Red Blood Count 4.48 M/uL (4.20-5.40); White Blood Count 7.94 K/ul (4.8-10.8)
[2024-01-04 06:00] LABS: BUN Creatinine Ratio 25.3 (10-20); Calcium 10.1 mg/dl (8.6-10.3); Creatinine Clr Calc Pharmacy 65.2 ml/min; Est GFR (African American) 84.9 ml/min; Est GFR (Non-African American) 73.2 ml/min; Potassium 4.2 mmol/L (3.5-5.1)
[2024-01-04] MEDS: FLUTICASONE/VILANTEROL 200/25MCG 14 PUFFS/INHALER INH SCH (07:32)
--- NOTE | 2024-01-04 07:36 | Electrocardiogram Report ---
Test Reason : Blood Pressure : / mmHG Vent. Rate : 085 BPM Atrial Rate : 085 BPM P-R Int : 184 ms QRS Dur : 078 ms QT Int : 354 ms P-R-T Axes : 061 -08 048 degrees QTc Int : 421 ms Normal sinus rhythm Normal ECG When compared with ECG of 21-MAR-2023 03:45, No significant change was found Confirmed by Srini Vázquez ([id number]) on 01/04/2024 7:36:02 AM Referred By: REFERRED SELF Confirmed By:Srini Vázquez
[2024-01-04] MEDS: LOSARTAN POTASSIUM 50 MG TAB PO SCH (08:11)
[2024-01-04] MEDS ORDERED: CETIRIZINE HCL 10 MG TABLET PO SCH (09:00)
[2024-01-04] MEDS ORDERED: PANTOprazole 40 MG TAB PO SCH (09:00)
[2024-01-04] MEDS: HEPARIN 100 UNIT/ML 5ML FLUSH FLUSH PRN (13:21)
--- NOTE | 2024-01-04 16:33 | Discharge Summary ---
Discharge Summary Date of Service January 04, 2024 Principal Dx & Hospital Course #1 = Principal Diagnosis (1) Ambulatory dysfunction: Patient reports that her left leg will occasionally stop working Pain in the left groin with radiation down the lateral aspect of the left leg; worse with knee bending and external rotation of left hip Venous Doppler of the left leg without DVT Left hip x-ray showed degenerative changes without evidence of acute abnormalities Head CT and head/neck CTA without acute abnormalities MRI brain without acute findings; ordered to complete stroke work-up for new left leg deficits Unclear etiology; suspect arthritis / degenerative changes contributing PT evaluated the patient and recommended she return home with outpatient PT services. > Prescription was provided to patient for OP PT upon discharge. (2) Common variable hypogammaglobulinemia: Patient follows with the [facility]CP for her IVIG every 28 days Last IVIG on Thursday 12/28 (3) Hx of deep venous thrombosis: Continue Eliquis (4) Autonomic dysfunction: Hx of syncope secondary to autonomic dysfunction (5) Dizziness: Meclizine 12.5mg p.o. q6h as needed for dizziness Zofran as needed for associated nausea (6) Colostomy status: Daily colostomy care Plan VTE PPx: On Eliquis CODE STATUS: Full code Admission HPI Per Admitting Provider Cony is a 73-year-old female with PMH of dyslipidemia, DVT of inferior vena cava (on Eliquis), hypothyroidism, common variable hypogammaglobinemia, breast cancer, asthma, and rectocele. She presented for worsening bilateral leg swelling, and left leg ambulatory dysfunction x 3 weeks. Patient reports that she sometimes cannot move her left leg at all. She ambulates with a walker at baseline, and several times has felt off balance as her left leg stopped moving while walking; last occurred on Saturday 12/30, and then again yesterday on Monday 01/01. She reports that she traveled to the bathroom on Monday, then when she returned to bed her left knee would not bend; she was unsure if she could wiggle her toes at this time; this left leg deficit lasted for approximately 1 hour. No falls or syncope. No history of stroke, and she denies any strokelike sympt oms such as slurred speech, facial droop, or upper extremity deficits. She does have a family history of stroke (her mother and grandma). Patient had IVIG on Thursday 12/28, then over the last few days she has noticed pain in her left groin with radiation down the lateral aspect of the left leg. She reports the pain is intermittent, and exacerbated by movements and lifting the leg up. She has been taking Tylenol intermittently for the pain, but she is unsure if this helps. No radiation to the lower back. [facility] common variable hypogammaglobinemia (receives IVIG). No history of vertigo to her knowledge, but she does note syncopal episodes in the past which she believes are secondary to changes in BP and autonomic dysfunction. She reports she was feeling lightheaded last week, and nearly blacked out. She reports she has had 6-7 concussions in the past. Patient did not take any of her regular morning medications today; no recent change in medications. She reports that she normally has good compliance with her Eliquis, but given she has been feeling off for the past 3 weeks, she has mis-timed certain doses, and completely forgotten 2-3 doses. She denies smoking, tobacco use, and alcohol use. Patient is hypertensive at 158/71 at time admission; vitals otherwise stable. ED course: ROS: Patient endorses lightheadedness when walking, feeling off balance, left leg giving out, wet cough (which patient attributes to asthma; white productive cough at times), intermittent nausea (ongoing), near urinary incontinence (comes on suddenly), and occassional "shocks" up and down her left leg. Patient denies fever, chills, nightsweats, dizziness, difficulty swallowing, slurred speech, facial droop, headache, changes in vision, fainting, chest pain, SOB, hemoptysis, pleuritic CP, abdominal pain, vomiting, changes in urinary/bowel habits, blood in the urine/stool, dysuria, burning with urination, saddle anesthesia, or numbness/tingling in the left leg. Admission Exam Per Admitting Provider General: no acute distress; non-toxic appearing; well-nourished; cooperative; SpO2 97% on RA HEENT: normocephalic, atraumatic; no scleral icterus; PERRLA w/ EOMs intact; moist mucus membrane; vision and hearing grossly intact; patient demonstrates to be able to smile, frown, and lift the eyebrows without unilateral deficits; patient does note diminished sensation on the left side assessed via light touch at the cheek Neck: supple; no lymphadenopathy; trachea midline; patient demonstrates ability to shrug shoulders against resistance without pain; rotating the neck left and right elicits dizziness Skin: warm, dry without signs of tenting; no cyanosis; no rashes, bruising, lesions, or erythema noted CV: chest wall NTP; port on the left upper chest wall without signs of erythema, drainage, or infection; RRR; S1/S2 normal; no murmurs/rubs/gallops; pulses intact and symmetric at radial, DP, and PT Lungs: no acute respiratory distress; symmetrical chest wall expansion; clear breath sounds across all lung vanessa w/o adventitious sounds; no wheezing ABD: Soft, NTP; BS present; no rebound/guarding; no distention; colostomy on the left upper quadrant without signs of erythema or infection MSK: no tics or fasciculations; 5/5 atm servicer strength bilaterally; nonpitting edema noted in the LEs b/l, nonerythematous; patient demonstrates ability to wiggle toes, plantarflex/dorsiflex against resistance with 5/5 strength bilaterally; she can bend her knees bilaterally (albeit bending the left knee reproduces pain); left hip is NTP; left groin pain with external rotation of the left hip; no left inguinal lymphadenopathy Neuro: A&Ox3; normal mood and affect; fluent speech; no slurred speech; no facial droop; sensation is diminished on the lateral side of the left lower extremity when compared to the right Discharge Exam General: No acute distress, nondiaphoretic, well-developed, well-nourished. Skin: The skin was without rashes, erythema, edema, or bruising. Cardiac: Regular rate and rhythm without murmurs gallops or rubs. Chest wall NTP; port on the left upper chest wall without signs of erythema, drainage, or infection. Pulm: Clear to auscultation bilaterally without wheezes, rales or rhonchi. No retractions or accessory muscle use. Abdominal: Positive bowel sounds x 4. Soft, nontender, without masses or organomegaly. No guarding or rebound tenderness. Neuro: A&O x3. No focal neurological deficits. MSK: no tics or fasciculations; 5/5 atm servicer strength bilaterally; nonpitting edema noted in the LEs b/l, nonerythematous; patient demonstrates ability to wiggle toes, plantarflex/dorsiflex against resistance with 5/5 strength bilaterally; she can bend her knees bilaterally; left hip is NTP; left groin pain with external rotation of the left hip Updated Medication List Medication Instructions Recorded Confirmed Type cholecalciferol (vitamin D3) 25 25 mcg PO QAM 05/25/20 01/03/24 History mcg (1,000 unit) capsule losartan 100 mg tablet 100 mg PO QAM 05/25/20 01/03/24 History ondansetron 4 mg disintegrating 4 mg PO Q6H PRN nausea and 11/01/20 01/03/24 Rx tablet vomiting #14 tabs furosemide 20 mg tablet 20 mg PO DAILY PRN Edema 04/01/21 01/03/24 History albuterol sulfate 2.5 mg/3 mL 2.5 mg (3 mL) inhalation Q6H PRN 08/04/22 01/03/24 Rx (0.083 %) solution for nebulization Shortness Of Breath #360 mL acetaminophen 500 mg tablet 500 mg PO QID PRN Pain 09/14/22 01/03/24 History (Tylenol Extra Strength) multivitamin [Daily Multivitamin] 1 tab PO DAILY 09/14/22 01/03/24 History fluticasone 500 mcg-salmeterol 50 1 inh inhalation BID #60 ea 12/13/22 01/03/24 Rx mcg/dose blistr powdr for inhalation (Advair Diskus) pantoprazole 40 mg tablet,delayed 40 mg PO QAM #90 tabs 05/22/23 01/03/24 Rx release simvastatin 20 mg tablet See Rx Instructions .Route 06/29/23 01/03/24 Rx .COMPLEX #90 tabs apixaban 5 mg tablet (Eliquis) See Rx Instructions .Route 07/13/23 01/03/24 Rx .COMPLEX #60 tabs folic acid 1 mg tablet See Rx Instructions .Route 07/13/23 01/03/24 Rx .COMPLEX #90 tabs albuterol sulfate 90 mcg/actuation See Rx Instructions .Route 07/14/23 01/03/24 Rx aerosol inhaler .COMPLEX #17 grams immune glob,gamma (IgG) 10 See Rx Instructions .Route 07/31/23 01/03/24 Rx %-gly-IgA over 50 mcg/mL injection .COMPLEX #300 ea solution (Gammagard Liquid) cetirizine 10 mg tablet 10 mg PO DAILY 12/13/23 01/03/24 History fluocinonide 0.1 % topical cream 1 applic topical DAILY PRN eczema 01/03/24 01/03/24 History levothyroxine 25 mcg tablet 12.5 mcg PO DAILY 01/03/24 01/03/24 History Hospital Stay Data Consultations 01/03/24 10:18 ED Decision to Admit Stat Diagnostic Imagining Performed Venous Doppler Study 01/03/24 07:34 US venous doppler LE LT CLINICAL HISTORY: ? dvt TECHNIQUE: Left lower extremity real-time compression venous ultrasound with Color Doppler imaging. Utilizing real-time ultrasonic imaging multiple real time high-resolution ultrasonic images with compression and noncompression maneuvers of the deep venous system in addition to color doppler imaging were performed from the common femoral vein through the proximal calf veins. COMPARISON: None available at the time of this dictation. FINDINGS/IMPRESSION: Currently there is normal compressibility of the deep venous system from the common femoral vein through the proximal calf veins. No superficial venous thrombosis is identified. ACT 112: Negative or not required by law. Electronically signed by: Gerard Sandoval M.D. 01/03/2024 8:[address] 01/03/24 07:35 CT angio neck with con, CT angio head w con, CT head/brain wo con CLINICAL HISTORY: neuro deficit, acute stroke suspected TECHNIQUE: Contiguous axial CT images of the head were acquired from the base of the skull to the vertex without intravenous contrast administration. CT angiography of the head and neck was performed following intravenous administration of iodinated contrast. Coronal and sagittal MIPS were obtained from the axial data set and were submitted for review. Automated dose lowering techniques and/or adjustment according to patient size were utilized for this examination. All measurements were calculated based on NASCET criteria. CT DOSE: 1014.77 mGy.cm Comparison: None available at the time of this dictation. FINDINGS: CT head: Areas of decreased attenuation are present in the periventricular and subcortical white matter bilaterally consistent with small vessel ischemic disease. Generalized cerebral atrophy with commensurate enlargement of the ventricles, sulci, and cisterns is also present. There is no acute intracranial hemorrhage or evidence of acute territorial infarction. No shift of the midline structures, mass effect, or extra-axial abnormalities are shown. Atherosclerotic calcifications are present in the intracranial segments of the internal carotid arteries. Lungs and soft tissues are unremarkable. CTA Neck: A 3 vessel aortic arch is shown. There is no significant atherosclerotic plaque in the aortic arch or the origins of the innominate, left common carotid, and left subclavian arteries. The common carotid, external carotid, cervical segments of the internal carotid arteries, and the cervical segments of the vertebral arteries are patent without hemodynamically significant stenosis. The right vertebral artery is dominant. CTA Head: The anterior and posterior cerebral circulations are patent. origin of the right posterior cerebral artery is seen. IMPRESSION: 1. No acute intracranial hemorrhage, evidence of acute territorial infarction, or other acute intracranial disease process. 2. No occlusion, hemodynamically significant stenosis, or dissection in the major cervical arteries. 3. No occlusion, hemodynamically significant stenosis, aneurysm, dissection, or arteriovenous malformation in the major intracranial arteries. Assessment of stenosis of the internal carotid arteries is based on NASCET criteria. ACT 112: Negative or not required by law. Electronically signed by: Gerard Sandoval M.D. 01/03/2024 9:43 AM Head CTA 01/03/24 07:35 CT angio neck with con, CT angio head w con, CT head/brain wo con CLINICAL HISTORY: neuro deficit, acute stroke suspected TECHNIQUE: Contiguous axial CT images of the head were acquired from the base of the skull to the vertex without intravenous contrast administration. CT angiography of the head and neck was performed following intravenous administration of iodinated contrast. Coronal and sagittal MIPS were obtained from the axial data set and were submitted for review. Automated dose lowering techniques and/or adjustment according to patient size were utilized for this examination. All measurements were calculated based on NASCET criteria. CT DOSE: 1014.77 mGy.cm Comparison: None available at the time of this dictation. FINDINGS: CT head: Areas of decreased attenuation are present in the periventricular and subcortical white matter bilaterally consistent with small vessel ischemic disease. Generalized cerebral atrophy with commensurate enlargement of the ventricles, sulci, and cisterns is also present. There is no acute intracranial hemorrhage or evidence of acute territorial infarction. No shift of the midline structures, mass effect, or extra-axial abnormalities are shown. Atherosclerotic calcifications are present in the intracranial segments of the internal carotid arteries. Lungs and soft tissues are unremarkable. CTA Neck: A 3 vessel aortic arch is shown. There is no significant atherosclerotic plaque in the aortic arch or the origins of the innominate, left common carotid, and left subclavian arteries. The common carotid, external carotid, cervical segments of the internal carotid arteries, and the cervical segments of the vertebral arteries are patent without hemodynamically significant stenosis. The right vertebral artery is dominant. CTA Head: The anterior and posterior cerebral circulations are patent. origin of the right posterior cerebral artery is seen. IMPRESSION: 1. No acute intracranial hemorrhage, evidence of acute territorial infarction, or other acute intracranial disease process. 2. No occlusion, hemodynamically significant stenosis, or dissection in the major cervical arteries. 3. No occlusion, hemodynamically significant stenosis, aneurysm, dissection, or arteriovenous malformation in the major intracranial arteries. Assessment of stenosis of the internal carotid arteries is based on NASCET gianni jarrell. ACT 112: Negative or not required by law. Electronically signed by: Gerard Sandoval M.D. 01/03/2024 9:43 AM Neck CTA 01/03/24 07:35 CT angio neck with con, CT angio head w con, CT head/brain wo con CLINICAL HISTORY: neuro deficit, acute stroke suspected TECHNIQUE: Contiguous axial CT images of the head were acquired from the base of the skull to the vertex without intravenous contrast administration. CT angiography of the head and neck was performed following intravenous administration of iodinated contrast. Coronal and sagittal MIPS were obtained from the axial data set and were submitted for review. Automated dose lowering techniques and/or adjustment according to patient size were utilized for this examination. All measurements were calculated based on NASCET criteria. CT DOSE: 1014.77 mGy.cm Comparison: None available at the time of this dictation. FINDINGS: CT head: Areas of decreased attenuation are present in the periventricular and subcortical white matter bilaterally consistent with small vessel ischemic disease. Generalized cerebral atrophy with commensurate enlargement of the ventricles, sulci, and cisterns is also present. There is no acute intracranial hemorrhage or evidence of acute territorial infarction. No shift of the midline structures, mass effect, or extra-axial abnormalities are shown. Atheroscl erotic calcifications are present in the intracranial segments of the internal carotid arteries. Lungs and soft tissues are unremarkable. CTA Neck: A 3 vessel aortic arch is shown. There is no significant atherosclerotic plaque in the aortic arch or the origins of the innominate, left common carotid, and left subclavian arteries. The common carotid, external carotid, cervical segments of the internal carotid arteries, and the cervical segments of the vertebral arteries are patent without hemodynamically significant stenosis. The right vertebral artery is dominant. CTA Head: The anterior and posterior cerebral circulations are patent. origin of the right posterior cerebral artery is seen. IMPRESSION: 1. No acute intracranial hemorrhage, evidence of acute territorial infarction, or other acute intracranial disease process. 2. No occlusion, hemodynamically significant stenosis, or dissection in the major cervical arteries. 3. No occlusion, hemodynamically significant stenosis, aneurysm, dissection, or arteriovenous malformation in the major intracranial arteries. Assessment of stenosis of the internal carotid arteries is based on NASCET criteria. ACT 112: Negative or not required by law. Electronically signed by: Gerard Sandoval M.D. 01/03/2024 9:43 AM Brain MRI 01/03/24 10:38 Brain MRI WITHOUT CONTRAST HISTORY: Left leg deficits; stroke r/o TECHNIQUE: Multiplanar multisequence MRI of the brain was performed without the use of contrast. COMPARISON STUDY: Head CT 01/03/2024. FINDINGS: There is no mass, hematoma, midline shift, or acute infarct. The paranasal sinuses are clear. The mastoid air cells are clear. The ventricles and sulci demonstrate mild age-related involutional changes. Scattered foci of T2 hyperintensity seen within the periventricular and subcortical white matter are nonspecific but suggestive of mild microvascular ischemic changes. The major vascular flow voids at the skull base are well-maintained. IMPRESSION: No acute intracranial abnormality. Scattered foci of T2 hyperintensity seen within the periventricular and subcortical white matter are nonspecific but favor microvascular ischemic change. ACT 112: Negative or not required by law. Electronically signed by: Roberto Harris M.D. 01/03/2024 2:39 PM Hip/Pelvis X-Ray 01/03/24 11:46 XR hip LT 2V w pelvis CLINICAL HISTORY: left hip pain with external rotation; ?arthritis TECHNIQUE: 2 views of the left hip and single frontal view of the pelvis were obtained. Comparison: None available at the time of this dictation. FINDINGS: There is no evidence of an acute fracture. Degenerative changes are seen in the hip joint. No soft tissue abnormality is seen. IMPRESSION: Degenerative changes without evidence of acute abnormality. ACT 112: Negative or not required by law. Electronically signed by: Gerard Sandoval M.D. 01/03/2024 1:42 PM Chest X-Ray 01/03/24 16:42 XR chest 1V portable CLINICAL HISTORY: Productive cough. COMPARISON STUDY: Chest CT August 25, 2021. Chest radiograph March 21, 2023. FINDINGS: Left subclavian [id number] is in place. Electronic device projects over the left chest. There is no pneumothorax or pleural effusion. No consolidation to suggest pneumonia. No evidence for pulmonary edema. Cardiom ediastinal silhouette is stable. IMPRESSION: No acute cardiopulmonary findings. No change in appearance of the chest. ACT 112: Negative or not required by law. Electronically signed by: Trung Milligan M.D. 01/03/2024 5:18 PM Pending Results Patient Have Any Pending Studies at Discharge: No Discharge Instructions Given to Patient (Per Discharging Provider) Deniz Danielle were admitted to the hospital due to ambulatory dysfunction. An extensive workup including CT scanning of your head, CTA of your head and neck, and brain MRI. These were all normal. You also had venous Doppler of your left leg which was negative for a blood clot. The x-ray of your left hip showed degenerative changes without any acute abnormalities. You were evaluated by our physical therapist, who recommended you return home with outpatient PT services. I provided you with a prescription for PT. You can take this to any PT clinic you would like to get services. I encourage you to continue using your walker at home for safer ambulation upon discharge from the hospital. No medication changes from this visit. It was a pleasure taking care of you while you were in the hospital, Lyric Storey PA-C Total Time Total Time Spent Total Time Spent (In Minutes): Greater than 30 minutes spent completing this discharge process including direct patient care, medication reconciliation, documentation, review of labs and images, and coordination of care. Coding Level of Care Code 05768 INP/OBS DISCH >30 MIN Diagnoses Ambulatory dysfunction R26.2 Common variable hypogammaglobulinemia D80.1 Hx of deep venous thrombosis Z86.718 Autonomic dysfunction G90.9 Dizziness R42 Colostomy status Z93.3
== END 2024-01-04 13:55 | disposition home or self-care (01) ==
LOC: 3N 07:12 → ED 07:12 → SUATTDRO 14:43 → 3N 15:29
DX: J45.909 Unspecified asthma, uncomplicated; Z88.1 Allergy status to other antibiotic agents; Z82.3 Family history of stroke; G90.9 Disorder of the autonomic nervous system, unspecified; Z86.718 Personal history of other venous thrombosis and embolism; Z79.899 Other long term (current) drug therapy; R29.898 Other symptoms and signs involving the musculoskeletal system; E03.9 Hypothyroidism, unspecified; R26.2 Difficulty in walking, not elsewhere classified; Z88.6 Allergy status to analgesic agent; D80.1 Nonfamilial hypogammaglobulinemia; R32 Unspecified urinary incontinence; E78.5 Hyperlipidemia, unspecified; Z86.73 Personal history of transient ischemic attack (TIA), and cerebral infarction without residual deficits; Z88.8 Allergy status to other drugs, medicaments and biological substances; Z93.3 Colostomy status; R42 Dizziness and giddiness; M79.605 Pain in left leg; R60.0 Localized edema; Z79.51 Long term (current) use of inhaled steroids; Z86.711 Personal history of pulmonary embolism; Z79.01 Long term (current) use of anticoagulants